=== PATIENT | male | born 1930 | race African-American/Black ===

== ENCOUNTER 2019-01-18 20:58 | Inpatient (IN) | payer MEDICARE, OTHER, MEDICAID ==
[~2019-01-18] VITALS: Ht 175.3 cm; Wt 77.1 kg
--- NOTE | 2019-01-18 21:10 | Emergency Room Report ---
History of Present Illness General Chief Complaint: Altered Mental Status Source: EMS Present Illness HPI Patient is an 88-year-old male brought in by EMS after increased altered mental status. Patient was noted to have reportedly previously been alert and oriented x3. Patient was noted to have increased confusion as well as lethargy acute onset from his long-term. Patient was noted to be full code. Patient had been noted to be short of breath and hypotensive by EMS and he was started on IV fluids as well as supplemental oxygen via nonrebreather mask. Patient a prior history of peripheral vascular disease as well as dementia and psychosis. He is currently on medications for his blood pressure which include metoprolol. Patient had been noted to have increased in his lungs. Allergies: Coded Allergies: No Known Allergies (Unverified , 01/18/19) Patient History Past Medical History: see triage record Reviewed Nursing Documentation: PMH: Agreed; PSxH: Agreed Review of Systems All Other Systems: limited - by mental status Physical Exam Vital Signs Date Time Temp Pulse Resp B/P (MAP) Pulse Ox O2 Delivery O2 Flow Rate FiO2 01/18/19 21:01 98.2 118 22 53/31 (38) 99 Non-Rebreather 15.0 General Appearance: severe distress, Chronically Ill ENT: moist mucus membranes Neck: limited range of motion Respiratory: respiratory distress, rhonchi Cardiovascular #1: tachycardia Cardiovascular #2: 0 dorsalis pedis (R), 0 dorsalis pedis (L) Gastrointestinal: normal inspection, soft Musculoskeletal: normal inspection Neurologic: responsive, motor weakness Psychiatric: depressed affect Skin: no rash Procedures Critical Care Time Critical Care Time Patient had a critical medical condition which untreated could potentially result in life or limb threatening injury. Total critical care time excluding procedures approximately 45 minutes. Central Line Central Line : Consent: Emergent Central Line Lumen: triple Maximal Sterile Barrier Tech: yes cap, yes mask, yes sterile gown, yes sterile gloves, yes large sterile sheet, yes hand hygiene, yes chlorhexidine prep Central Line Postion: internal jugular (R) Anesthesia: Lidocaine - 4 cc's of anesthesia: 4 Complications: none Central Line Post Position: sutured, good blood return, position confirmed w / CXR Attempts: One Patient Tolerated: Well Complications: None Medical Decision Making Diagnostic Impression: Primary Impression: Altered mental status Additional Impressions: Septic shock Pulmonary embolism Lung mass Urinary tract infection Renal insufficiency ER Course Patient presented for altered mental status. Differential diagnosis include was not limited to pneumonia, myocardial infarction, septic shock, meningitis, intracranial hemorrhage among others. Because of complexity of patient's case laboratory testing and imaging studies were ordered. Patient was noted to be in severe distress and markedly hypotensive. He was started on IV fluids due to hypotension. He was noted to have diminished oxygen saturation. He was started on supplemental oxygen via nonrebreather mask initially.Central venous catheter was placed due to patient's hypotension. Patient was noted to have improvement his mental status after IV fluids. Patient was noted to have some improvement in hypotension. CT imaging showed some evidence of possible pulmonary embolism as well as multiple spiculated lesions concerning for mass. Patient will be started on anticoagulation with heparin due to renal insufficiencyPatient will be admitted to ICU for further evaluation of hypotension. ABG showed evidence of elevated AA gradient without acidosis. CT of the chest was ordered due to patient's AA gradient. Dr. Pedrito Mims was contacted for inpatient management due to primary care physician. Labs Test 01/18/19 21:33 01/18/19 21:45 Arterial Blood pH 7.404 (7.350-7.450) Arterial Blood Partial Pressure CO2 33.1 mmHg (35.0-45.0) Arterial Blood Partial Pressure O2 148.4 mmHg (75.0-100.0) Arterial Blood HCO3 20.2 mmol/L (22.0-26.0) Arterial Blood Oxygen Saturation 98.4 % (95-100) Arterial Blood Base Excess -3.7 (-2-2) Cristofer Test Positive Sodium Level 140 MMOL/L (136-145) Potassium Level 5.1 MMOL/L (3.5-5.1) Chloride Level 106 MMOL/L (98-107) Carbon Dioxide Level 23 MMOL/L (21-32) Anion Gap 11 mmol/L (5-15) Blood Urea Nitrogen 40 mg/dL (7-18) Creatinine 4.2 MG/DL (0.55-1.30) Estimat Glomerular Filtration Rate mL/min (>60) Glucose Level 165 MG/DL (74-106) Calcium Level 8.4 MG/DL (8.5-10.1) EKG Diagnostic Results Rate: tachycardiac Rhythm: NSR ST Segments: no acute changes Last Vital Signs Date Time Temp Pulse Resp B/P (MAP) Pulse Ox O2 Delivery O2 Flow Rate FiO2 01/18/19 21:01 98.2 118 22 53/31 (08) 99 Non-Rebreather 15.0 Status: improved Disposition: ADMITTED INPATIENT Condition: Critical Deepak Chavarria MD Jan 18, 2019 21:10
[2019-01-18] MEDS ORDERED: Vancomycin 1.5 GM in NS 275 ML IVPB ONE (21:15)
[2019-01-18] MEDS ORDERED: Cefepime HCl 2 GM in NS 110 ML IV SCH (21:15)
[2019-01-18] MEDS ORDERED: Lidocaine 1% Plain 30 ml INJ ONE (21:21)
[2019-01-18 22:09] VITALS: BP 91/58
[2019-01-18] MEDS ORDERED: Isovue-370 150ml vial INJ PRN (22:15)
[2019-01-18 22:34] LABS: ANION GAP 11 mmol/L (5-15); BLOOD UREA NITROGEN 40 mg/dL (7-18); CALCIUM 8.4 MG/DL (8.5-10.1); CARBON DIOXIDE 23 MMOL/L (21-32); CHLORIDE 106 MMOL/L (98-107); CREATININE 4.2 MG/DL (0.55-1.30); POTASSIUM 5.1 MMOL/L (3.5-5.1); SODIUM 140 MMOL/L (136-145)
[2019-01-18 22:38] VITALS: BP 109/44
[2019-01-18 22:47] LABS: ALANINE AMINOTRANSFERASE 15 U/L (12-78); ALBUMIN 1.7 G/DL (3.4-5.0); ALBUMIN/GLOBULIN RATIO 0.4 (1.0-2.7); ALKALINE PHOSPHATASE 48 U/L (46-116); ASPARTATE AMINO TRANSFERASE 18 U/L (15-37); BILIRUBIN,TOTAL 0.6 MG/DL (0.2-1.0); CKMB 1.3 NG/ML (0.0-3.6); CREATINE KINASE 117 U/L (26-308); PHOSPHORUS 4.8 MG/DL (2.5-4.9)
[2019-01-18 22:49] LABS: BASOPHILS % (AUTO) 0.6 % (0.0-2.0); HEMOGLOBIN 10.2 G/DL (14.2-18.0); LYMPHOCYTES % (AUTO) 8.7 % (20.0-45.0); MEAN CORPUSCULAR VOLUME 89 FL (80-99); MONOCYTES % (AUTO) 17.8 % (1.0-10.0); NEUTROPHILS % (AUTO) 72.9 % (45.0-75.0); PLATELET COUNT 158 K/UL (150-450); RED BLOOD COUNT 3.48 M/UL (4.70-6.10); RED CELL DISTRIBUTION WIDTH 13.7 % (11.6-14.8); WHITE BLOOD COUNT 13.2 K/UL (4.8-10.8)
[2019-01-18 23:06] LABS: INR 1.1 (0.9-1.1)
[2019-01-18 23:17] LABS: APPEARANCE,URINE CLOUDY; BILIRUBIN, URINE 1+ (NEGATIVE); GLUCOSE, URINE (UA) NEGATIVE (NEGATIVE); KETONES,URINE 1+ (NEGATIVE); LEUKOCYTE ESTERASE ,URINE 3+ (NEGATIVE); NITRITE,URINE NEGATIVE (NEGATIVE); PH,URINE 5 (4.5-8.0); PROTEIN,URINE 3+ (NEGATIVE); UROBILINOGEN,URINE 1 MG/DL (0.0-1.0)
[2019-01-18 23:43] LABS: COLOR,URINE YELLOW
[2019-01-18] MEDS ORDERED: LR 1000ml 1,000 ML IV SCH (23:45)
[2019-01-18 23:58] VITALS: BP 95/46
[2019-01-19] VITALS (67 sets, daily range): BP systolic 75–149; BP diastolic 31–107
[2019-01-19] MEDS ORDERED: Heparin 5000 units/ml inj IV ONE ×2 (00:15→23:45)
[2019-01-19] MEDS ORDERED: Heparin 25,000u/D5W 500ml 500 ML IV SCH ×4 (00:15→16:30)
[2019-01-19] MEDS ORDERED: Levophed 4mg/4mL Inj IV ONE (00:27)
[2019-01-19] MEDS ORDERED: MULTIVITAMINS1 EAC8 ORAL (00:41)
[2019-01-19] MEDS ORDERED: ACETAMINOPHEN120 MG RECTAL (00:41)
[2019-01-19] MEDS ORDERED: VITAMIN C500 M5 PO (00:41)
[2019-01-19] MEDS ORDERED: DIVALPROEX SOD250 MG PO (00:41)
[2019-01-19] MEDS ORDERED: FERROUS SULFAT325 M2 ORAL (00:41)
[2019-01-19] MEDS ORDERED: LISINOPRIL5 MG ORAL (00:41)
[2019-01-19] MEDS ORDERED: COLACE100 MG ORAL (00:41)
[2019-01-19] MEDS ORDERED: TEMAZEPAM15 MG ORAL (00:41)
[2019-01-19] MEDS ORDERED: MILK OF MA2400 MG/10 ORAL (00:41)
[2019-01-19] MEDS ORDERED: RISPERDAL0.5 MG ORAL (00:41)
[2019-01-19] MEDS ORDERED: METOPROLOL SUCC50 MG ORAL (00:41)
[2019-01-19] MEDS ORDERED: LR 1000ml 1,000 ML IV SCH (03:45)
[2019-01-19 07:04] LABS: ALANINE AMINOTRANSFERASE 14 U/L (12-78); ALBUMIN/GLOBULIN RATIO 0.4 (1.0-2.7); ALKALINE PHOSPHATASE 59 U/L (46-116); ANION GAP 12 mmol/L (5-15); ASPARTATE AMINO TRANSFERASE 26 U/L (15-37); BILIRUBIN,TOTAL 0.4 MG/DL (0.2-1.0); BLOOD UREA NITROGEN 41 mg/dL (7-18); CALCIUM 8.6 MG/DL (8.5-10.1); CARBON DIOXIDE 22 MMOL/L (21-32); CHLORIDE 106 MMOL/L (98-107); CREATININE 3.3 MG/DL (0.55-1.30); POTASSIUM 5.1 MMOL/L (3.5-5.1); SODIUM 140 MMOL/L (136-145)
[2019-01-19 07:07] LABS: BASOPHILS % (AUTO) 0.6 % (0.0-2.0); HEMATOCRIT 39.6 % (42.0-52.0); HEMOGLOBIN 12.8 G/DL (14.2-18.0); LYMPHOCYTES % (AUTO) 8.3 % (20.0-45.0); MEAN CORPUSCULAR VOLUME 93 FL (80-99); MONOCYTES % (AUTO) 13.7 % (1.0-10.0); NEUTROPHILS % (AUTO) 77.3 % (45.0-75.0); PLATELET COUNT 191 K/UL (150-450); RED BLOOD COUNT 4.25 M/UL (4.70-6.10); RED CELL DISTRIBUTION WIDTH 14.6 % (11.6-14.8); WHITE BLOOD COUNT 11.4 K/UL (4.8-10.8)
--- NOTE | 2019-01-19 09:06 | Diagnostic Imaging Report ---
ndication: Shortness of breath, hypotension, increased AA gradient Technique: IV administration nonionic contrast. Spiral acquisitions obtained from the lung bases to the lung apices. Multiplanar and 3-D reconstructions were generated. Total dose length product 1193.14 mGycm. CTDIvol(s) 31.87 mGy. Dose reduction achieved using automated exposure control Comparison: none Findings: There is image degradation due to respiratory motion artifact. Pulmonary arterial opacification is adequate. No gross large vessel pulmonary emboli demonstrated. The right basilar segmental branches demonstrate questionable lack of opacification, although this could be artifactual due to motion. No evidence of right ventricular dilatation. No evidence of thoracic aortic aneurysm or dissection. There is atelectasis and consolidation of a considerable portion of the posterior medial left lower lobe. There is left hilar adenopathy. Calcified nodes are seen in the left hilum. No definite mediastinal lymphadenopathy. Subcarinal fullness probably reflects a distended fluid-filled esophagus. Calcified nodes are also seen in the paratracheal region and a few small calcifications are seen in the right other nodes. The lungs demonstrate opacities in the right lung apex, largest irregular measuring 2.5 x 2.3 x 1.8 cm. Less extensive similar opacity is seen in the left lung apex. Posterior dependent atelectatic changes are seen at the right lung base. There is a small amount of pericardial fluid. The heart size is upper limits of normal The thyroid is unremarkable. No axillary or chest wall mass or adenopathy. There is mild edema of the subcutaneous fat. The bones demonstrate extensive disc degeneration at T12-L1, with subchondral sclerosis, loss of disc space. There is also extensive endplate irregularity. Degenerative proliferative changes are seen elsewhere in the thoracic and lower cervical spine. The included upper abdominal anatomy demonstrates an interpolar region right renal cyst. Considerable stool is seen in the colon. Calcifications are seen in the left adrenal. A cyst is seen in the left lobe of the liver. Impression: No large vessel central pulmonary emboli. Questionable opacification of the right lower lobe branches, versus artifact due to motion, right lower lobe emboli not excludable 2.5 x 2.3 x 1.8 cm right apical masslike opacity with smaller adjacent similar smaller opacities. Favor scarring, but the possibility of neoplasm cannot be ruled out. Comparison with any prior exams and may be available would be useful Left hilar adenopathy. Atelectasis and consolidation of the posterior medial left lower lobe Evidence of old granulomatous disease in the left left greater than right hilar and mediastinal lymph nodes. Mildly distended esophagus, probably age-related, downstream obstructive process not completely excludable. Correlate with clinical findings Small pericardial effusion. Mild edema of the subcutaneous fat Extensive endplate irregularity at T12-L1, probably on the basis of advanced degenerative change. Possibility of infection not excludable, however, correlation with clinical findings is advised consideration for MRI as clinically indicated Left adrenal calcifications, may indicate old hemorrhage Incidental findings as noted, including renal and hepatic cysts This essentially agrees with the preliminary interpretation provided overnight by [facility]. The CT scanner at [facility] is accredited by the [employer] and the scans are performed using protocols designed to limit radiation exposure to as low as reasonably achievable to attain images of sufficient resolution adequate for diagnostic evaluation.
[2019-01-19] MEDS: D5 1/2NS 1,000 ML IV SCH ×2 (11:58→19:41)
--- NOTE | 2019-01-19 12:10 | Diagnostic Imaging Report ---
Indication: Shortness of breath Technique: One view of the chest Comparison: none Findings: There is retrocardiac consolidation. The pleural spaces, right lung are clear. The heart is upper limits normal in size. Impression: Retrocardiac consolidation, suspect pneumonia
--- NOTE | 2019-01-19 12:11 | Diagnostic Imaging Report ---
Indication: Post central line placement Technique: One view of the chest Comparison: One hour earlier Findings: Interim placement of right jugular central venous catheter, tip which projects at the level of the cavoatrial junction. There is some patchy retrocardiac consolidation. There is mild pulmonary interstitial congestion. No pneumothorax Impression: Satisfactory position of right internal jugular central venous catheter. No radiographically evident complication Mild interstitial congestion Retrocardiac consolidation, possibly pneumonia, again demonstrated This essentially agrees with the preliminary interpretation provided overnight by [facility].
--- NOTE | 2019-01-19 13:27 | Consultation ---
Consult Note Consult Note Asked to eval at the request of Dr Mims for renal failure Seen in ICU with RN Examined data reviewed Patient is an 88-year-old male brought in by EMS after increased altered mental status. Patient was noted to have reportedly previously been alert and oriented x3. Patient was noted to have increased confusion as well as lethargy acute onset from his [facility]. Patient was noted to be full code. Patient had been noted to be short of breath and hypotensive by EMS and he was started on IV fluids as well as supplemental oxygen via nonrebreather mask. Patient a prior history of peripheral vascular disease as well as dementia and psychosis. He is currently on medications for his blood pressure which include metoprolol. Patient had been noted to have increased in his lungs. no allergies . Assessment/Plan Acute renal failure Shock / Sepsis Acute Encephalopathy Lung mass UTI Fluid challengge Pressors Monitor renal parameters NPO Jose Per orders per consultants Rubén Nicolas MD Jan 19, 2019 13:27
[2019-01-19] MEDS ORDERED: Milk of Magnesia 30ml Ud ORAL PRN (14:15)
[2019-01-19] MEDS: Multivitamin w/Minerals tab ORAL SCH (16:32)
[2019-01-19] MEDS: Piperacillin/Tazobactam 3.375 GM in NS 110 ML IVPB SCH (16:33)
--- NOTE | 2019-01-19 16:50 | Consultation ---
History of Present Illness General Chief Complaint: Altered Mental Status Present Illness Allergies: Coded Allergies: No Known Allergies (Unverified , 01/18/19) Medication History Scheduled Ascorbic Acid (Vitamin C), 500 MG PO BID, (Reported) Docusate Sodium* (Colace*), 100 MG ORAL DAILY, (Reported) Lisinopril (Lisinopril*), 10 MG ORAL DAILY, (Reported) Magnesium Hydroxide* (Milk Of Magnesia*), 30 ML ORAL DAILY, (Reported) Metoprolol Succinate* (Metoprolol Succinate*), 50 MG ORAL DAILY, (Reported) Multivitamin With Minerals (Multivitamins With Minerals*), 1 TAB ORAL DAILY, ( Reported) Risperidone* (Risperdal*), 0.5 MG ORAL DAILY, (Reported) Temazepam (Temazepam*), 15 MG ORAL BEDTIME, (Reported) Scheduled PRN Acetaminophen* (Tylenol*), 325 MG RECTAL Q4H PRN for Mild Pain/Temp > 100.5, ( Reported) Miscellaneous Medications Divalproex Sodium (Divalproex Sodium), 250 MG PO, (Reported) Ferrous Sulfate (Ferrous Sulfate), 325 MG ORAL, (Reported) Patient History Healthcare decision maker arnold scott Resuscitation status Full Code Advanced Directive on File No Physical Exam Last 24 Hour Vital Signs Date Time Temp Pulse Resp B/P (MAP) Pulse Ox O2 Delivery O2 Flow Rate FiO2 01/19/19 16:00 Nasal Cannula 2.0 01/19/19 16:00 67 01/19/19 14:00 127/60 01/19/19 13:00 126/53 01/19/19 13:00 69 17 126/53 (77) 100 01/19/19 12:30 69 17 131/54 (79) 100 01/19/19 12:00 98.6 71 15 116/47 (70) 99 01/19/19 12:00 77 01/19/19 12:00 Nasal Cannula 2.0 01/19/19 11:30 76 17 116/47 (70) 98 01/19/19 11:00 116/47 01/19/19 11:00 74 19 111/59 (76) 98 01/19/19 10:30 69 16 81/51 (61) 100 01/19/19 10:30 105/64 01/19/19 10:29 105/64 6/13/19 10:00 81/51 01/19/19 10:00 74 16 97/60 (72) 100 01/19/19 09:30 72 16 96/63 (74) 100 01/19/19 09:00 72 16 149/75 (99) 100 01/19/19 09:00 96/63 01/19/19 08:30 74 16 107/64 (78) 99 01/19/19 08:00 98.1 75 17 97/45 (62) 99 01/19/19 08:00 73 01/19/19 08:00 97/45 01/19/19 08:00 Nasal Cannula 2.0 01/19/19 07:30 79 16 103/56 (72) 99 01/19/19 07:00 79 16 78/47 (57) 99 01/19/19 07:00 78/47 01/19/19 06:31 102/56 01/19/19 06:30 74 16 75/41 (52) 99 01/19/19 06:00 77 16 102/56 (71) 98 01/19/19 05:30 79 16 85/46 (59) 98 01/19/19 05:00 75 16 115/57 (76) 98 01/19/19 04:30 92 20 95/54 (68) 98 01/19/19 04:00 Nasal Cannula 2.0 01/19/19 04:00 98.2 92 20 100/47 (64) 98 01/19/19 04:00 94 01/19/19 03:30 92 18 110/71 (84) 98 01/19/19 03:00 98.0 92 17 114/71 (85) 97 01/19/19 03:00 114/71 01/19/19 03:00 114/71 01/19/19 03:00 114/71 01/19/19 02:40 Nasal Cannula 2.0 01/19/19 02:28 97.5 94 19 116/55 100 Nasal Cannula 2.0 01/19/19 02:28 97.5 94 19 116/55 100 Nasal Cannula 2.0 01/19/19 02:10 116/53 01/19/19 02:10 87 16 116/53 99 Nasal Cannula 2.0 01/19/19 02:05 89 13 112/53 99 Nasal Cannula 2.0 01/19/19 02:05 112/53 01/19/19 02:00 100/43 01/19/19 02:00 85 17 100/43 99 Nasal Cannula 2.0 01/19/19 01:55 113/43 01/19/19 01:55 85 12 113/43 99 Nasal Cannula 2.0 01/19/19 01:50 90 17 102/54 100 Nasal Cannula 2.0 01/19/19 01:50 102/54 01/19/19 01:45 117/53 01/19/19 01:45 93 17 117/53 100 Nasal Cannula 2.0 01/19/19 01:40 92 14 111/56 100 Nasal Cannula 2.0 01/19/19 01:40 111/56 01/19/19 01:35 92 14 118/53 99 Nasal Cannula 2.0 01/19/19 01:35 118/53 01/19/19 01:30 89 18 114/47 99 Room Air 01/19/19 01:30 114/47 01/19/19 01:27 93 16 113/45 98 Nasal Cannula 2.0 01/19/19 01:25 113/45 01/19/19 01:20 93 16 109/56 98 Nasal Cannula 2.0 01/19/19 01:20 109/56 01/19/19 01:15 105/57 01/19/19 01:15 93 17 105/57 100 Nasal Cannula 2.0 01/19/19 01:10 92 18 111/53 98 Room Air 2.0 01/19/19 01:10 111/53 01/19/19 01:05 100 19 97/50 99 Nasal Cannula 2.0 01/19/19 01:05 97/50 01/19/19 01:01 93 23 116/43 98 Nasal Cannula 2.0 01/19/19 01:00 116/43 01/19/19 00:55 96 22 100/50 100 Nasal Cannula 2.0 01/19/19 00:55 100/50 01/19/19 00:50 98 24 97/57 99 Nasal Cannula 2.0 01/19/19 00:50 97/57 01/19/19 00:45 97/50 01/19/19 00:45 97.4 96 16 97/50 99 Nasal Cannula 2.0 01/19/19 00:40 87/52 01/19/19 00:40 97.2 94 18 87/52 100 Nasal Cannula 2.0 01/19/19 00:35 97.3 92 19 75/31 100 Nasal Cannula 2.0 01/19/19 00:32 75/31 01/18/19 23:58 97.2 98 19 95/46 98 Nasal Cannula 2.0 01/18/19 22:38 98.2 87 19 109/44 100 Non-Rebreather 15.0 01/18/19 22:09 90 19 91/58 100 Non-Rebreather 15.0 01/18/19 21:30 98 30 Non-Rebreather 15.0 01/18/19 21:01 98.2 118 22 53/31 (38) 99 Non-Rebreather 15.0 Intake and Output 01/18/19 01/19/19 19:00 07:00 Intake Total 886.133 ml Output Total 310 ml Balance 576.133 ml Intake Oral 0 ml IV Total 886.133 ml Output Urine Total 310 ml Stool Total 0 ml # Voids 1 Laboratory Tests Test 01/18/19 21:33 01/18/19 21:45 01/18/19 22:45 01/18/19 23:20 Arterial Blood pH 7.404 (7.350-7.450) Arterial Blood Partial Pressure CO2 33.1 mmHg (35.0-45.0) L Arterial Blood Partial Pressure O2 148.4 mmHg (75.0-100.0) H Arterial Blood HCO3 20.2 mmol/L (22.0-26.0) L Arterial Blood Oxygen Saturation 98.4 % (95-100) Arterial Blood Base Excess -3.7 (-2-2) L Cristofer Test Positive Sodium Level 140 MMOL/L (136-145) Potassium Level 5.1 MMOL/L (3.5-5.1) Chloride Level 106 MMOL/L (98-107) Carbon Dioxide Level 23 MMOL/L (21-32) Anion Gap 11 mmol/L (5-15) Blood Urea Nitrogen 40 mg/dL (7-18) H Creatinine 4.2 MG/DL (0.55-1.30) H Estimat Glomerular Filtration Rate mL/min (>60) Glucose Level 165 MG/DL (74-106) H Lactic Acid Level 3.40 mmol/L (0.4-2.0) H 2.50 mmol/L (0.66-2.22) H Calcium Level 8.4 MG/DL (8.5-10.1) L Phosphorus Level 4.8 MG/DL (2.5-4.9) Magnesium Level 1.6 MG/DL (1.8-2.4) L Total Bilirubin 0.6 MG/DL (0.2-1.0) Aspartate Amino Transf (AST/SGOT) 18 U/L (15-37) Alanine Aminotransferase (ALT/SGPT) 15 U/L (12-78) Alkaline Phosphatase 48 U/L (46-116) Total Creatine Kinase 117 U/L (26-308) Creatine Kinase MB 1.3 NG/ML (0.0-3.6) Creatine Kinase MB Relative Index 1.1 Troponin I 0.041 ng/mL (0.000-0.056) Pro-B-Type Natriuretic Peptide 7678 pg/mL (0-125) H Total Protein 5.6 G/DL (6.4-8.2) L Albumin 1.7 G/DL (3.4-5.0) L Globulin 3.9 g/dL Albumin/Globulin Ratio 0.4 (1.0-2.7) L White Blood Count 13.2 K/UL (4.8-10.8) H Red Blood Count 3.48 M/UL (4.70-6.10) L Hemoglobin 10.2 G/DL (14.2-18.0) L Hematocrit 31.0 % (42.0-52.0) L Mean Corpuscular Volume 89 FL (80-99) Mean Corpuscular Hemoglobin 29.4 PG (27.0-31.0) Mean Corpuscular Hemoglobin Concent 33.0 G/DL (32.0-36.0) Red Cell Distribution Width 13.7 % (11.6-14.8) Platelet Count 158 K/UL (150-450) Mean Platelet Volume 6.2 FL (6.5-10.1) L Neutrophils (%) (Auto) 72.9 % (45.0-75.0) Lymphocytes (%) (Auto) 8.7 % (20.0-45.0) L Monocytes (%) (Auto) 17.8 % (1.0-10.0) H Eosinophils (%) (Auto) 0.0 % (0.0-3.0) Basophils (%) (Auto) 0.6 % (0.0-2.0) Prothrombin Time 11.7 SEC (9.30-11.50) H Prothromb Time International Ratio 1.1 (0.9-1.1) Activated Partial Thromboplast Time 31 SEC (23-33) Urine Color Yellow Urine Appearance Cloudy Urine pH 5 (4.5-8.0) Urine Specific [place] 1.020 (1.005-1.035) Urine Protein 3+ (NEGATIVE) H Urine Glucose (UA) Negative (NEGATIVE) Urine Ketones 1+ (NEGATIVE) H Urine Blood 5+ (NEGATIVE) H Urine Nitrite Negative (NEGATIVE) Urine Bilirubin 1+ (NEGATIVE) H Urine Ictotest Negative (NEGATIVE) Urine Urobilinogen 1 MG/DL (0.0-1.0) H Urine Leukocyte Esterase 3+ (NEGATIVE) H Urine RBC Tntc /HPF (0 - 0) H Urine WBC Tntc /HPF (0 - 0) H Urine Squamous Epithelial Cells None /LPF (NONE/OCC) Urine Bacteria Many /HPF (NONE) H Test 01/19/19 06:18 01/19/19 08:20 01/19/19 15:05 White Blood Count 11.4 K/UL (4.8-10.8) H Red Blood Count 4.25 M/UL (4.70-6.10) L Hemoglobin 12.8 G/DL (14.2-18.0) L Hematocrit 39.6 % (42.0-52.0) L Mean Corpuscular Volume 93 FL (80-99) Mean Corpuscular Hemoglobin 30.1 PG (27.0-31.0) Mean Corpuscular Hemoglobin Concent 32.4 G/DL (32.0-36.0) Red Cell Distribution Width 14.6 % (11.6-14.8) Platelet Count 191 K/UL (150-450) Mean Platelet Volume 7.1 FL (6.5-10.1) Neutrophils (%) (Auto) 77.3 % (45.0-75.0) H Lymphocytes (%) (Auto) 8.3 % (20.0-45.0) L Monocytes (%) (Auto) 13.7 % (1.0-10.0) H Eosinophils (%) (Auto) 0.0 % (0.0-3.0) Basophils (%) (Auto) 0.6 % (0.0-2.0) Activated Partial Thromboplast Time > 150 SEC (23-33) *H 125 SEC (23-33) H Sodium Level 140 MMOL/L (136-145) Potassium Level 5.1 MMOL/L (3.5-5.1) Chloride Level 106 MMOL/L (98-107) Carbon Dioxide Level 22 MMOL/L (21-32) Anion Gap 12 mmol/L (5-15) Blood Urea Nitrogen 41 mg/dL (7-18) H Creatinine 3.3 MG/DL (0.55-1.30) H Estimat Glomerular Filtration Rate mL/min (>60) Glucose Level 153 MG/DL (74-106) H Lactic Acid Level 3.00 mmol/L (0.4-2.0) H 2.50 mmol/L (0.66-2.22) H Calcium Level 8.6 MG/DL (8.5-10.1) Total Bilirubin 0.4 MG/DL (0.2-1.0) Aspartate Amino Transf (AST/SGOT) 26 U/L (15-37) Alanine Aminotransferase (ALT/SGPT) 14 U/L (12-78) Alkaline Phosphatase 59 U/L (46-116) Total Protein 6.6 G/DL (6.4-8.2) Albumin 2.0 G/DL (3.4-5.0) L Globulin 4.6 g/dL Albumin/Globulin Ratio 0.4 (1.0-2.7) L Urine Random Sodium 43 mmol/L (20-110) Height (Feet): 5 Height (Inches): 9.00 Weight (Pounds): 165 Medications Current Medications Medications (Trade) Dose Ordered Sig/Vaughn Route PRN Reason Start Time Stop Time Status Last Admin Dose Admin Acetaminophen (Tylenol) 650 mg Q4H PRN ORAL Mild Pain/Temp > 100.5 01/19/19 14:15 02/18/19 14:14 01/19/19 14:58 Chlorhexidine Gluconate (Michelle-Hex 2%) 1 applic DAILY@1999 TOPIC 01/19/19 20:00 02/18/19 19:59 Dextrose/Sodium Chloride 1,000 ml @ 125 mls/hr Q8H IV 01/19/19 11:00 02/18/19 10:59 01/19/19 11:58 Divalproex Sodium (Depakote) 250 mg Q8HR ORAL 01/19/19 22:00 02/18/19 21:59 Docusate Sodium (Colace) 100 mg DAILY ORAL 01/20/19 09:00 02/19/19 08:59 Famotidine (Pepcid I.v.) 10 mg Q12HR IVP 01/19/19 09:00 02/18/19 08:59 01/19/19 08:52 Heparin Sodium/ Dextrose 500 ml @ 16.465 mls/ hr ADJUST PER PROTOCOL IV 01/19/19 16:30 02/18/19 16:29 01/19/19 16:32 Magnesium Hydroxide (Mom) 30 ml DAILYPRN PRN ORAL Constipation 01/19/19 14:15 02/18/19 14:14 Metronidazole 100 ml @ 100 mls/hr Q6H IVPB 01/19/19 09:00 01/26/19 08:59 01/19/19 14:57 Multivitamins Therapeutic (Therapeutic Multivitamin) 1 ea DAILY ORAL 01/19/19 16:00 02/18/19 15:59 01/19/19 16:32 Norepinephrine Bitartrate 4 mg/ Dextrose 250 ml @ 0 mls/hr Q24H IV 01/19/19 03:45 02/18/19 03:44 01/19/19 10:30 Ondansetron HCl (Zofran) 4 mg Q6H PRN IV Nausea & Vomiting 01/19/19 13:45 02/18/19 13:44 Piperacillin Sod/ Tazobactam Sod 3.375 gm/Sodium Chloride 110 ml @ 27.5 mls/hr Q12H IVPB 01/19/19 15:00 01/26/19 14:59 01/19/19 16:33 Temazepam (Restoril) 15 mg BEDTIME ORAL 01/19/19 21:00 01/26/19 20:59 Assessment/Plan Assessment/Plan: Hematology/Oncology Consultation Chief Complaint: Altered Mental Status REQ MD: Samuel Mmis DOS: 01/19/19 RFC: Pulmonary emboli and lung cancer eval ID 88-year-old male brought in by EMS after increased altered mental status. Patient was noted to have reportedly previously been alert and oriented x3. Patient was noted to have increased confusion as well as lethargy acute onset [facility]. Patient was noted to be full code. Patient had been noted to be short of breath and hypotensive by EMS and he was started on IV fluids as well as supplemental oxygen via nonrebreather mask. Patient a prior history of peripheral vascular disease as well as dementia and psychosis. He is currently on medications for his blood pressure which include metoprolol. Patient had been noted to have increased in his lungs. Noted to have a PE on CTA imaging, limited info given he is a poor historian is at this time confused , started on heparin gtt, pressors and abx Coded Allergies: No Known Allergies (Unverified , 01/18/19) Past Medical History: see triage record Reviewed Nursing Documentation: PMH: Agreed; PSxH: Agreed Review of Systems: limited - by mental status PE Last 24 Hour Vital Signs Date Time Temp Pulse Resp B/P (MAP) Pulse Ox O2 Delivery O2 Flow Rate FiO2 01/19/19 16:00 Nasal Cannula 2.0 01/19/19 16:00 67 01/19/19 14:00 127/60 01/19/19 13:00 126/53 01/19/19 13:00 69 17 126/53 (77) 100 01/19/19 12:30 69 17 131/54 (79) 100 01/19/19 12:00 98.6 71 15 116/47 (70) 99 01/19/19 12:00 77 01/19/19 12:00 Nasal Cannula 2.0 01/19/19 11:30 76 17 116/47 (70) 98 01/19/19 11:00 116/47 01/19/19 11:00 74 19 111/59 (76) 98 01/19/19 10:30 69 16 81/51 (61) 100 01/19/19 10:30 105/64 01/19/19 10:29 105/64 01/19/19 10:00 81/51 01/19/19 10:00 74 16 97/60 (72) 100 01/19/19 09:30 72 16 96/63 (74) 100 01/19/19 09:00 72 16 149/75 (99) 100 01/19/19 09:00 96/63 01/19/19 08:30 74 16 107/64 (78) 99 01/19/19 08:00 98.1 75 17 97/45 (62) 99 01/19/19 08:00 73 01/19/19 08:00 97/45 01/19/19 08:00 Nasal Cannula 2.0 01/19/19 07:30 79 16 103/56 (72) 99 01/19/19 07:00 79 16 78/47 (57) 99 01/19/19 07:00 78/47 01/19/19 06:31 102/56 01/19/19 06:30 74 16 75/41 (52) 99 01/19/19 06:00 77 16 102/56 (71) 98 01/19/19 05:30 79 16 85/46 (59) 98 01/19/19 05:00 75 16 115/57 (76) 98 01/19/19 04:30 92 20 95/54 (68) 98 01/19/19 04:00 Nasal Cannula 2.0 01/19/19 04:00 98.2 92 20 100/47 (64) 98 01/19/19 04:00 94 01/19/19 03:30 92 18 110/71 (84) 98 01/19/19 03:00 98.0 92 17 114/71 (85) 97 01/19/19 03:00 114/71 01/19/19 03:00 114/71 01/19/19 03:00 114/71 01/19/19 02:40 Nasal Cannula 2.0 01/19/19 02:28 97.5 94 19 116/55 100 Nasal Cannula 2.0 01/19/19 02:28 97.5 94 19 116/55 100 Nasal Cannula 2.0 01/19/19 02:10 116/53 01/19/19 02:10 87 16 116/53 99 Nasal Cannula 2.0 01/19/19 02:05 89 13 112/53 99 Nasal Cannula 2.0 01/19/19 02:05 112/53 01/19/19 02:00 100/43 01/19/19 02:00 85 17 100/43 99 Nasal Cannula 2.0 01/19/19 01:55 113/43 01/19/19 01:55 85 12 113/43 99 Nasal Cannula 2.0 01/19/19 01:50 90 17 102/54 100 Nasal Cannula 2.0 01/19/19 01:50 102/54 01/19/19 01:45 117/53 01/19/19 01:45 93 17 117/53 100 Nasal Cannula 2.0 01/19/19 01:40 92 14 111/56 100 Nasal Cannula 2.0 01/19/19 01:40 111/56 01/19/19 01:35 92 14 118/53 99 Nasal Cannula 2.0 01/19/19 01:35 118/53 01/19/19 01:30 89 18 114/47 99 Room Air 01/19/19 01:30 114/47 01/19/19 01:27 93 16 113/45 98 Nasal Cannula 2.0 01/19/19 01:25 113/45 01/19/19 01:20 93 16 109/56 98 Nasal Cannula 2.0 01/19/19 01:20 109/56 01/19/19 01:15 105/57 01/19/19 01:15 93 17 105/57 100 Nasal Cannula 2.0 01/19/19 01:10 92 18 111/53 98 Room Air 2.0 01/19/19 01:10 111/53 01/19/19 01:05 100 19 97/50 99 Nasal Cannula 2.0 01/19/19 01:05 97/50 01/19/19 01:01 93 23 116/43 98 Nasal Cannula 2.0 01/19/19 01:00 116/43 01/19/19 00:55 96 22 100/50 100 Nasal Cannula 2.0 01/19/19 00:55 100/50 01/19/19 00:50 98 24 97/57 99 Nasal Cannula 2.0 01/19/19 00:50 97/57 01/19/19 00:45 97/50 01/19/19 00:45 97.4 96 16 97/50 99 Nasal Cannula 2.0 01/19/19 00:40 87/52 01/19/19 00:40 97.2 94 18 87/52 100 Nasal Cannula 2.0 01/19/19 00:35 97.3 92 19 75/31 100 Nasal Cannula 2.0 01/19/19 00:32 75/31 01/18/19 23:58 97.2 98 19 95/46 98 Nasal Cannula 2.0 01/18/19 22:38 98.2 87 19 109/44 100 Non-Rebreather 15.0 01/18/19 22:09 90 19 91/58 100 Non-Rebreather 15.0 01/18/19 21:30 98 30 Non-Rebreather 15.0 01/18/19 21:01 98.2 118 22 53/31 (38) 99 Non-Rebreather 15.0 General: severe distress, chronically Ill ENT: moist mucus membranes Neck: limited range of motion Respiratory: respiratory distress, rhonchi++ noted, nc Cardiovascular: RRr, no mgr Gastrointestinal: normal inspection, soft Musculoskeletal: normal inspection Neurologic: responsive, motor weakness Psychiatric: depressed affect Skin: no rash Current Medications Medications (Trade) Dose Ordered Sig/Vaughn Route PRN Reason Start Time Stop Time Status Last Admin Dose Admin Acetaminophen (Tylenol) 650 mg Q4H PRN ORAL Mild Pain/Temp > 100.5 01/19/19 14:15 02/18/19 14:14 01/19/19 14:58 Chlorhexidine Gluconate (Michelle-Hex 2%) 1 applic DAILY@2000 TOPIC 01/19/19 20:00 02/18/19 19:59 Dextrose/Sodium Chloride 1,000 ml @ 125 mls/hr Q8H IV 01/19/19 11:00 02/18/19 10:59 01/19/19 11:58 Divalproex Sodium (Depakote) 250 mg Q8HR ORAL 01/19/19 22:00 02/18/19 21:59 Docusate Sodium (Colace) 100 mg DAILY ORAL 01/20/19 09:00 02/19/19 08:59 Famotidine (Pepcid I.v.) 10 mg Q12HR IVP 01/19/19 09:00 02/18/19 08:59 01/19/19 08:52 Heparin Sodium/ Dextrose 500 ml @ 16.465 mls/ hr ADJUST PER PROTOCOL IV 01/19/19 16:30 02/18/19 16:29 01/19/19 16:32 Magnesium Hydroxide (Mom) 30 ml DAILYPRN PRN ORAL Constipation 01/19/19 14:15 02/18/19 14:14 Metronidazole 100 ml @ 100 mls/hr Q6H IVPB 01/19/19 09:00 01/26/19 08:59 01/19/19 14:57 Multivitamins Therapeutic (Therapeutic Multivitamin) 1 ea DAILY ORAL 01/19/19 16:00 02/18/19 15:59 01/19/19 16:32 Norepinephrine Bitartrate 4 mg/ Dextrose 250 ml @ 0 mls/hr Q24H IV 01/19/19 03:45 02/18/19 03:44 01/19/19 10:30 Ondansetron HCl (Zofran) 4 mg Q6H PRN IV Nausea & Vomiting 01/19/19 13:45 02/18/19 13:44 Piperacillin Sod/ Tazobactam Sod 3.375 gm/Sodium Chloride 110 ml @ 27.5 mls/hr Q12H IVPB 01/19/19 15:00 01/26/19 14:59 01/19/19 16:33 Temazepam (Restoril) 15 mg BEDTIME ORAL 01/19/19 21:00 01/26/19 20:59 Laboratory Tests Test 01/18/19 21:33 01/18/19 21:45 01/18/19 22:45 01/18/19 23:20 Arterial Blood pH 7.404 (7.350-7.450) Arterial Blood Partial Pressure CO2 33.1 mmHg (35.0-45.0) L Arterial Blood Partial Pressure O2 148.4 mmHg (75.0-100.0) H Arterial Blood HCO3 20.2 mmol/L (22.0-26.0) L Arterial Blood Oxygen Saturation 98.4 % (95-100) Arterial Blood Base Excess -3.7 (-2-2) L Cristofer Test Positive Sodium Level 140 MMOL/L (136-145) Potassium Level 5.1 MMOL/L (3.5-5.1) Chloride Level 106 MMOL/L (98-107) Carbon Dioxide Level 23 MMOL/L (21-32) Anion Gap 11 mmol/L (5-15) Blood Urea Nitrogen 40 mg/dL (7-18) H Creatinine 4.2 MG/DL (0.55-1.30) H Estimate Glomerular Filtration Rate mL/min (>60) Glucose Level 165 MG/DL (74-106) H Lactic Acid Level 3.40 mmol/L (0.4-2.0) H 2.50 mmol/L (0.66-2.22) H Calcium Level 8.4 MG/DL (8.5-10.1) L Phosphorus Level 4.8 MG/DL (2.5-4.9) Magnesium Level 1.6 MG/DL (1.8-2.4) L Total Bilirubin 0.6 MG/DL (0.2-1.0) Aspartate Amino Transferase (AST) 18 U/L (15-37) Alanine Aminotransferase (ALT) 15 U/L (12-78) Alkaline Phosphatase 48 U/L (46-116) Total Creatine Kinase 117 U/L (26-308) Creatine Kinase MB 1.3 NG/ML (0.0-3.6) Creatine Kinase MB Relative Index 1.1 Troponin I 0.041 ng/mL (0.000-0.056) Pro-B-Type Natriuretic Peptide 7678 pg/mL (0-125) H Total Protein 5.6 G/DL (6.4-8.2) L Albumin 1.7 G/DL (3.4-5.0) L Globulin 3.9 g/dL Albumin/Globulin Ratio 0.4 (1.0-2.7) L White Blood Count 13.2 K/UL (4.8-10.8) H Red Blood Count 3.48 M/UL (4.70-6.10) L Hemoglobin 10.2 G/DL (14.2-18.0) L Hematocrit 31.0 % (42.0-52.0) L Mean Corpuscular Volume 89 FL (80-99) Mean Corpuscular Hemoglobin 29.4 PG (27.0-31.0) Mean Corpuscular Hemoglobin Concent 33.0 G/DL (32.0-36.0) Red Cell Distribution Width 13.7 % (11.6-14.8) Platelet Count 158 K/UL (150-450) Mean Platelet Volume 6.2 FL (6.5-10.1) L Neutrophils (%) (Auto) 72.9 % (45.0-75.0) Lymphocytes (%) (Auto) 8.7 % (20.0-45.0) L Monocytes (%) (Auto) 17.8 % (1.0-10.0) H Eosinophils (%) (Auto) 0.0 % (0.0-3.0) Basophils (%) (Auto) 0.6 % (0.0-2.0) Prothrombin Time 11.7 SEC (9.30-11.50) H Prothrombin Time INR 1.1 (0.9-1.1) PTT 31 SEC (23-33) Urine Color Yellow Urine Appearance Cloudy Urine pH 5 (4.5-8.0) Urine Specific [place] 1.020 (1.005-1.035) Urine Protein 3+ (NEGATIVE) H Urine Glucose (UA) Negative (NEGATIVE) Urine Ketones 1+ (NEGATIVE) H Urine Blood 5+ (NEGATIVE) H Urine Nitrite Negative (NEGATIVE) Urine Bilirubin 1+ (NEGATIVE) H Urine Ictotest Negative (NEGATIVE) Urine Urobilinogen 1 MG/DL (0.0-1.0) H Urine Leukocyte Esterase 3+ (NEGATIVE) H Urine RBC Tntc /HPF (0 - 0) H Urine WBC Tntc /HPF (0 - 0) H Urine Squamous Epithelial Cells None /LPF (NONE/OCC) Urine Bacteria Many /HPF (NONE) H Test 01/19/19 06:18 01/19/19 08:20 01/19/19 15:05 White Blood Count 11.4 K/UL (4.8-10.8) H Red Blood Count 4.25 M/UL (4.70-6.10) L Hemoglobin 12.8 G/DL (14.2-18.0) L Hematocrit 39.6 % (42.0-52.0) L Mean Corpuscular Volume 93 FL (80-99) Mean Corpuscular Hemoglobin 30.1 PG (27.0-31.0) Mean Corpuscular Hemoglobin Concent 32.4 G/DL (32.0-36.0) Red Cell Distribution Width 14.6 % (11.6-14.8) Platelet Count 191 K/UL (150-450) Mean Platelet Volume 7.1 FL (6.5-10.1) Neutrophils (%) (Auto) 77.3 % (45.0-75.0) H Lymphocytes (%) (Auto) 8.3 % (20.0-45.0) L Monocytes (%) (Auto) 13.7 % (1.0-10.0) H Eosinophils (%) (Auto) 0.0 % (0.0-3.0) Basophils (%) (Auto) 0.6 % (0.0-2.0) PTT > 150 SEC (23-33) *H 125 SEC (23-33) H Sodium Level 140 MMOL/L (136-145) Potassium Level 5.1 MMOL/L (3.5-5.1) Chloride Level 106 MMOL/L (98-107) Carbon Dioxide Level 22 MMOL/L (21-32) Anion Gap 12 mmol/L (5-15) Blood Urea Nitrogen 41 mg/dL (7-18) H Creatinine 3.3 MG/DL (0.55-1.30) H Estimate Glomerular Filtration Rate mL/min (>60) Glucose Level 153 MG/DL (74-106) H Lactic Acid Level 3.00 mmol/L (0.4-2.0) H 2.50 mmol/L (0.66-2.22) H Calcium Level 8.6 MG/DL (8.5-10.1) Total Bilirubin 0.4 MG/DL (0.2-1.0) Aspartate Amino Transferase (AST) 26 U/L (15-37) Alanine Aminotransferase (ALT) 14 U/L (12-78) Alkaline Phosphatase 59 U/L (46-116) Total Protein 6.6 G/DL (6.4-8.2) Albumin 2.0 G/DL (3.4-5.0) L Globulin 4.6 g/dL Albumin/Globulin Ratio 0.4 (1.0-2.7) L Urine Random Sodium 43 mmol/L (20-110) CTA imaging 01/19/19 Impression: No large vessel central pulmonary emboli. Questionable opacification of the right lower lobe branches, versus artifact due to motion, right lower lobe emboli not excludable 2.5 x 2.3 x 1.8 cm right apical masslike opacity with smaller adjacent similar smaller opacities. Favor scarring, but the possibility of neoplasm cannot be ruled out. Comparison with any prior exams and may be available would be useful Left hilar adenopathy. Atelectasis and consolidation of the posterior medial left lower lobe. Evidence of old granulomatous disease in the left left greater than right hilar and mediastinal lymph nodes. Mildly distended esophagus, probably age-related, downstream obstructive process notcompletely excludable. Correlate with clinical findings Small pericardial effusion. Mild edema of the subcutaneous fat Assessment and Recs: # Lung mass (2.5 x 2.3 x 1.8 cm right apical masslike opacity) with smaller adjacent similar smaller opacities. Favor scarring, but the possibility of neoplasm cannot be ruled out. 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, r/o mets --> at this time, patient is on pressors so hold off on diagnosis until more stable --> at some point will need a tissue diagnosis, as well as further w/u --> given advanced age, hold off on any extensive immediate care # Pulmonary embolism could be related to mass/malignacy --> current is on heparin gtt --> okay to transition to coumadin with inr goal 2-3 --> another option would be xarelto/eliquis as per pcp and pulm # Leukocytosis is 2/2 septic shock with uti --> has been started on abx --> further w/u for altered mental status --> as per ID care, abx # Urinary tract infection # Renal insufficiency --> as per renal recs # Respiratory failure is on nc/bipap --> per pulm # Hypotension is due to sepsis likely --> on pressors in the icu The timing of this note does not necessarily reflect the time of the patient was seen. GREATLY APPRECIATE CONSULTATION. Jake Womack MD Jan 19, 2019 16:50
[2019-01-19] MEDS ORDERED: Isovue-370 150ml vial INJ PRN (17:00)
[2019-01-19] MEDS: Dyna-Hex 2% Top Sol 2oz TOPIC SCH (19:41)
[2019-01-19] MEDS ORDERED: D5 1/2NS 1000ml IV ONE (20:13)
[2019-01-19] MEDS ORDERED: Tubing IV Secondary IV ONE (20:13)
[2019-01-19] MEDS ORDERED: LR 1000ml ONE (20:13)
[2019-01-19] MEDS ORDERED: D5NS 1000ml IV ONE (20:13)
[2019-01-19] MEDS ORDERED: Cefepime HCl 2 GM in D5W 55 ML IVPB SCH (21:00)
[2019-01-19] MEDS: Ascorbic Acid 500mg tab ORAL SCH ×2 (21:00→21:43)
--- NOTE | 2019-01-19 22:01 | History and Physical Report ---
DATE OF ADMISSION: 01/18/2019 HISTORY OF PRESENT ILLNESS: This is an 88-year-old male, who came to the emergency room for altered mental status and unresponsiveness. The patient was found to have elevated white counts and possible PE. The patient is currently nonverbal. He opens his eyes. He has a little bit cough. No fever or chills. PAST MEDICAL HISTORY: Significant for dementia, depression, and hypertension. MEDICATIONS: See the list. ALLERGIES: NKA. FAMILY HISTORY: Noncontributory. SOCIAL HISTORY: Lives at senior living. Mostly bedbound. REVIEW OF SYSTEMS: Generalized weakness, tired, minimum cough, and confusion. PHYSICAL EXAMINATION: VITAL SIGNS: Blood pressure is 119/49, pulse 67, and saturation 100%. SKIN: Good skin turgor. HEENT: NAD. CHEST: Bilateral decreased breath sounds. CARDIOVASCULAR: Regular rhythm. Tachycardia. ABDOMEN: Soft. Positive bowel sounds. EXTREMITIES: CCE. NEUROLOGICAL: Confusion and generalized weakness. Opens her eyes. GENITOURINARY: Deferred. LABORATORY DATA: White counts are slightly high. CT of the chest is showing possible PE. ASSESSMENT AND PLAN: 1. Altered mental status. 2. Possible PE. 3. History of hypertension. 4. Dementia. 5. Leukocytosis. 6. Renal insufficiency. PLAN: We will consider Pulmonary consult. Continue heparin drip. Continue bronchodilator treatments. Check CT of head to rule out CVA. Pedrito Mims M.D. DR: АННА JOB#: [id number] CC:
[2019-01-20] VITALS (46 sets, daily range): BP systolic 86–138; BP diastolic 41–81
[2019-01-20] MEDS ORDERED: Heparin 25,000u/D5W 500ml 500 ML IV SCH
[2019-01-20] MEDS: Piperacillin/Tazobactam 3.375 GM in NS 110 ML IVPB SCH ×2 (02:59→15:36)
[2019-01-20] MEDS: D5 1/2NS 1,000 ML IV SCH ×4 (03:00→20:00)
[2019-01-20 07:31] LABS: BASOPHILS % (AUTO) 0.3 % (0.0-2.0); EOSINOPHILS % (AUTO) 0.5 % (0.0-3.0); HEMATOCRIT 33.5 % (42.0-52.0); MEAN CORPUSCULAR VOLUME 92 FL (80-99); MONOCYTES % (AUTO) 9.5 % (1.0-10.0); NEUTROPHILS % (AUTO) 83.6 % (45.0-75.0); PLATELET COUNT 198 K/UL (150-450); RED BLOOD COUNT 3.65 M/UL (4.70-6.10); RED CELL DISTRIBUTION WIDTH 14.8 % (11.6-14.8); WHITE BLOOD COUNT 9.8 K/UL (4.8-10.8)
[2019-01-20 07:47] LABS: ALANINE AMINOTRANSFERASE 24 U/L (12-78); ALBUMIN/GLOBULIN RATIO 0.5 (1.0-2.7); ALKALINE PHOSPHATASE 52 U/L (46-116); ANION GAP 10 mmol/L (5-15); ASPARTATE AMINO TRANSFERASE 34 U/L (15-37); BILIRUBIN,TOTAL 0.4 MG/DL (0.2-1.0); BLOOD UREA NITROGEN 29 mg/dL (7-18); CALCIUM 8.6 MG/DL (8.5-10.1); CARBON DIOXIDE 26 MMOL/L (21-32); CHLORIDE 105 MMOL/L (98-107); CHOLESTEROL 91 MG/DL (< 200); CREATINE KINASE 188 U/L (26-308); FERRITIN 1327 NG/ML (8-388); GAMMA GLUTAMYL TRANSPEPTIDASE 14 U/L (5-85); HDL CHOLESTEROL 37 MG/DL (40-60); PHOSPHORUS 3.3 MG/DL (2.5-4.9); POTASSIUM 3.8 MMOL/L (3.5-5.1); SODIUM 140 MMOL/L (136-145); TRIGLYCERIDES 38 MG/DL (30-150)
[2019-01-20 08:17] LABS: % IRON SATURATION 10 % (15-50); IRON 11 ug/dL (50-175); TOTAL IRON BINDING CAPACITY 113 ug/dL (250-450)
[2019-01-20] MEDS: Heparin 25,000u/D5W 500ml 500 ML IV SCH (08:52)
[2019-01-20] MEDS: Ascorbic Acid 500mg tab ORAL SCH ×2 (08:53→17:20)
[2019-01-20] MEDS: Multivitamin w/Minerals tab ORAL SCH (08:53)
[2019-01-20] MEDS ORDERED: Docusate 100mg cap ORAL SCH (09:00)
--- NOTE | 2019-01-20 11:50 | Hematology/Onc Progress Note ---
Assessment/Plan Assessment/Plan IMAGING: CTA imaging 01/19/19 Impression: No large vessel central pulmonary emboli. Questionable opacification of the right lower lobe branches, versus artifact due to motion, right lower lobe emboli not excludable 2.5 x 2.3 x 1.8 cm right apical masslike opacity with smaller adjacent similar smaller opacities. Favor scarring, but the possibility of neoplasm cannot be ruled out. Comparison with any prior exams and may be available would be useful Left hilar adenopathy. Atelectasis and consolidation of the posterior medial left lower lobe. Evidence of old granulomatous disease in the left left greater than right hilar and mediastinal lymph nodes. Mildly distended esophagus, probably age-related, downstream obstructive process notcompletely excludable. Correlate with clinical findings Small pericardial effusion. Mild edema of the subcutaneous fat Assessment and Recs: # Lung mass (2.5 x 2.3 x 1.8 cm right apical masslike opacity) with smaller adjacent similar smaller opacities. Favor scarring, but the possibility of neoplasm cannot be ruled out. 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, r/o mets --> at this time, patient is on pressors so hold off on diagnosis until more stable --> at some point will need a tissue diagnosis, as well as further w/u --> given advanced age, hold off on any extensive immediate care # Pulmonary embolism could be related to mass/malignacy --> current is on heparin gtt --> okay to transition to coumadin with inr goal 2-3 --> another option would be xarelto/eliquis as per pcp and pulm # Leukocytosis is 2/2 septic shock with uti --> has been started on abx --> further w/u for altered mental status --> as per ID care, abx # Urinary tract infection # Renal insufficiency --> as per renal recs # Respiratory failure is on nc/bipap --> per pulm # Hypotension is due to sepsis likely --> on pressors in the icu The timing of this note does not necessarily reflect the time of the patient was seen. GREATLY APPRECIATE CONSULTATION. Subjective Allergies: Coded Allergies: No Known Allergies (Unverified , 01/18/19) Subjective 01/20: Off Levophed, remians in ICU and is confused, family primary caregivers and decison makers. Objective Objective Current Medications Medications (Trade) Dose Ordered Sig/Vaughn Route PRN Reason Start Time Stop Time Status Last Admin Dose Admin Acetaminophen (Tylenol) 650 mg Q4H PRN ORAL Mild Pain/Temp > 100.5 01/19/19 14:15 02/18/19 14:14 01/19/19 14:58 Ascorbic Acid (Vitamin C) 500 mg Q12HR ORAL 01/19/19 21:00 02/18/19 20:59 01/20/19 08:53 Chlorhexidine Gluconate (Michelle-Hex 2%) 1 applic DAILY@2000 TOPIC 01/19/19 20:00 02/18/19 19:59 01/19/19 19:41 Dextrose/Sodium Chloride 1,000 ml @ 125 mls/hr Q8H IV 01/19/19 11:00 02/18/19 10:59 01/20/19 03:00 Divalproex Sodium (Depakote Sprinkles) 250 mg Q8HR ORAL 01/20/19 14:00 02/19/19 13:59 UNV Docusate Sodium (Colace) 100 mg DAILY ORAL 01/20/19 09:00 02/19/19 08:59 01/20/19 08:53 Famotidine (Pepcid I.v.) 10 mg Q12HR IVP 01/19/19 09:00 02/18/19 08:59 01/20/19 08:53 Ferrous Sulfate (Feosol) 325 mg DAILY ORAL 01/20/19 09:00 02/19/19 08:59 01/20/19 08:52 Heparin Sodium/ Dextrose 500 ml @ 19.459 mls/ hr ADJUST PER PROTOCOL IV 01/20/19 08:01 02/19/19 08:00 01/20/19 08:52 Iopamidol (Isovue-370 150ml) 150 ml NOW PRN INJ Radiology Procedure 01/19/19 17:00 01/21/19 16:58 Magnesium Hydroxide (Mom) 30 ml DAILYPRN PRN ORAL Constipation 01/19/19 14:15 02/18/19 14:14 Metronidazole 100 ml @ 100 mls/hr Q6H IVPB 01/19/19 09:00 6/20/19 08:59 01/20/19 10:02 Multivitamins Therapeutic (Therapeutic Multivitamin) 1 ea DAILY ORAL 01/19/19 16:00 02/18/19 15:59 01/20/19 08:53 Norepinephrine Bitartrate 4 mg/ Dextrose 250 ml @ 0 mls/hr Q24H IV 01/19/19 03:45 02/18/19 03:44 01/19/19 19:41 Ondansetron HCl (Zofran) 4 mg Q6H PRN IV Nausea & Vomiting 01/19/19 13:45 02/18/19 13:44 Piperacillin Sod/ Tazobactam Sod 3.375 gm/Sodium Chloride 110 ml @ 27.5 mls/hr Q12H IVPB 01/19/19 15:00 01/26/19 14:59 01/20/19 02:59 Risperidone (RisperDAL) 0.5 mg DAILY ORAL 01/20/19 09:00 02/19/19 08:59 01/20/19 08:53 Temazepam (Restoril) 15 mg BEDTIME ORAL 01/19/19 21:00 01/26/19 20:59 Last 24 Hour Vital Signs Date Time Temp Pulse Resp B/P (MAP) Pulse Ox O2 Delivery O2 Flow Rate FiO2 01/20/19 11:00 75 17 115/51 (72) 98 01/20/19 10:30 69 14 97/41 (59) 98 01/20/19 10:00 67 16 118/53 (74) 100 01/20/19 09:30 79 16 123/50 (74) 100 01/20/19 09:00 123/50 01/20/19 09:00 80 14 121/59 (79) 100 01/20/19 08:30 79 16 93/81 (85) 100 01/20/19 08:00 Nasal Cannula 2.0 01/20/19 08:00 112/50 01/20/19 08:00 76 01/20/19 08:00 88 17 105/45 (65) 100 01/20/19 07:33 99 Nasal Cannula 2.0 28 01/20/19 07:30 98.8 84 16 112/50 (70) 100 01/20/19 07:00 102/50 01/20/19 07:00 80 15 102/50 (67) 100 01/20/19 06:45 83 17 131/64 (86) 100 01/20/19 06:30 86 18 121/49 (73) 100 01/20/19 06:15 73 26 132/46 (74) 99 01/20/19 06:00 73 16 115/46 (69) 99 01/20/19 06:00 132/48 01/20/19 05:45 73 16 111/49 (69) 99 01/20/19 05:30 73 16 123/50 (74) 99 01/20/19 05:15 72 16 115/44 (67) 99 01/20/19 05:00 76 14 124/45 (71) 99 01/20/19 05:00 109/51 01/20/19 04:45 74 16 121/50 (73) 99 01/20/19 04:30 91 19 122/65 (84) 100 01/20/19 04:15 89 16 113/68 (83) 100 01/20/19 04:00 98.8 94 17 113/54 (73) 100 01/20/19 04:00 95 01/20/19 04:00 Nasal Cannula 2.0 01/20/19 03:45 97 16 123/50 (74) 99 01/20/19 03:15 88 18 121/51 (74) 100 01/20/19 03:00 87 17 101/47 (65) 100 01/20/19 03:00 101/47 01/20/19 02:45 87 17 100/44 (62) 100 01/20/19 02:30 83 17 107/49 (68) 99 01/20/19 02:15 91 17 121/58 (79) 100 01/20/19 02:00 94 17 121/52 (75) 99 01/20/19 02:00 121/52 01/20/19 01:45 99 18 123/56 (78) 99 01/20/19 01:30 85 14 114/51 (72) 99 01/20/19 01:15 82 15 124/48 (73) 99 01/20/19 01:00 88 15 115/55 (75) 100 01/20/19 01:00 115/55 01/20/19 00:30 89 17 122/63 (82) 100 01/20/19 00:00 98.2 79 16 111/55 (73) 100 01/20/19 00:00 Nasal Cannula 2.0 01/20/19 00:00 111/55 01/20/19 00:00 89 01/19/19 23:30 79 16 112/53 (72) 100 01/19/19 23:00 120/53 01/19/19 23:00 92 17 120/53 (75) 100 01/19/19 22:30 90 17 136/66 (89) 100 01/19/19 22:00 81 16 118/52 (74) 100 01/19/19 22:00 118/52 01/19/19 21:30 87 19 106/82 (90) 100 01/19/19 21:00 93 19 123/59 (80) 99 01/19/19 21:00 123/59 01/19/19 20:30 99 19 125/73 (90) 99 01/19/19 20:00 105/42 01/19/19 20:00 Nasal Cannula 2.0 01/19/19 20:00 86 01/19/19 20:00 97.8 72 14 105/42 (63) 100 01/19/19 19:41 105/46 01/19/19 19:30 71 16 105/49 (67) 99 01/19/19 19:00 94 17 98/40 (59) 98 01/19/19 19:00 98/40 01/19/19 18:30 88 17 130/107 (115) 100 01/19/19 18:00 113/55 01/19/19 18:00 84 17 113/55 (74) 100 01/19/19 17:30 57 15 115/49 (71) 100 01/19/19 17:00 122/44 01/19/19 17:00 122/44 01/19/19 17:00 65 15 92/64 (73) 100 01/19/19 16:30 70 16 119/49 (72) 100 01/19/19 16:00 Nasal Cannula 2.0 01/19/19 16:00 112/46 01/19/19 16:00 67 01/19/19 16:00 97.6 67 14 112/46 (68) 100 01/19/19 15:30 68 14 107/49 (68) 100 01/19/19 15:00 69 15 127/51 (76) 100 01/19/19 15:00 127/51 01/19/19 14:45 72 15 126/51 (76) 100 01/19/19 14:30 68 16 121/47 (71) 100 01/19/19 14:15 69 15 123/52 (75) 100 01/19/19 14:00 67 15 128/46 (73) 100 01/19/19 14:00 127/60 01/19/19 13:30 67 15 130/49 (76) 100 01/19/19 13:00 126/53 01/19/19 13:00 69 17 126/53 (77) 100 01/19/19 12:30 69 17 131/54 (79) 100 01/19/19 12:00 98.6 71 15 116/47 (70) 99 01/19/19 12:00 77 01/19/19 12:00 Nasal Cannula 2.0 01/19/19 11:30 76 17 116/47 (70) 98 01/19/19 11:00 116/47 01/19/19 11:00 74 19 111/59 (76) 98 01/19/19 10:30 69 16 81/51 (61) 100 01/19/19 10:30 105/64 01/19/19 10:29 105/64 01/19/19 10:00 81/51 01/19/19 10:00 74 16 97/60 (72) 100 01/19/19 09:30 72 16 96/63 (74) 100 01/19/19 09:00 72 16 149/75 (99) 100 01/19/19 09:00 96/63 01/19/19 08:30 74 16 107/64 (78) 99 01/19/19 08:00 98.1 75 17 97/45 (62) 99 01/19/19 08:00 73 01/19/19 08:00 97/45 01/19/19 08:00 Nasal Cannula 2.0 01/19/19 07:30 79 16 103/56 (72) 99 01/19/19 07:00 79 16 78/47 (57) 99 01/19/19 07:00 78/47 01/19/19 06:31 102/56 01/19/19 06:30 74 16 75/41 (52) 99 01/19/19 06:00 77 16 102/56 (71) 98 01/19/19 05:30 79 16 85/46 (59) 98 01/19/19 05:00 75 16 115/57 (76) 98 01/19/19 04:30 92 20 95/54 (68) 98 01/19/19 04:00 Nasal Cannula 2.0 01/19/19 04:00 98.2 92 20 100/47 (64) 98 01/19/19 04:00 94 01/19/19 03:30 92 18 110/71 (84) 98 01/19/19 03:00 98.0 92 17 114/71 (85) 97 01/19/19 03:00 114/71 01/19/19 03:00 114/71 01/19/19 03:00 114/71 01/19/19 02:40 Nasal Cannula 2.0 01/19/19 02:28 97.5 94 19 116/55 100 Nasal Cannula 2.0 01/19/19 02:28 97.5 94 19 116/55 100 Nasal Cannula 2.0 01/19/19 02:10 116/53 01/19/19 02:10 87 16 116/53 99 Nasal Cannula 2.0 01/19/19 02:05 89 13 112/53 99 Nasal Cannula 2.0 01/19/19 02:05 112/53 01/19/19 02:00 100/43 01/19/19 02:00 85 17 100/43 99 Nasal Cannula 2.0 01/19/19 01:55 113/43 01/19/19 01:55 85 12 113/43 99 Nasal Cannula 2.0 01/19/19 01:50 90 17 102/54 100 Nasal Cannula 2.0 01/19/19 01:50 102/54 01/19/19 01:45 117/53 01/19/19 01:45 93 17 117/53 100 Nasal Cannula 2.0 01/19/19 01:40 92 14 111/56 100 Nasal Cannula 2.0 01/19/19 01:40 111/56 01/19/19 01:35 92 14 118/53 99 Nasal Cannula 2.0 01/19/19 01:35 118/53 01/19/19 01:30 89 18 114/47 99 Room Air 01/19/19 01:30 114/47 01/19/19 01:27 93 16 113/45 98 Nasal Cannula 2.0 01/19/19 01:25 113/45 01/19/19 01:20 93 16 109/56 98 Nasal Cannula 2.0 01/19/19 01:20 109/56 01/19/19 01:15 105/57 01/19/19 01:15 93 17 105/57 100 Nasal Cannula 2.0 01/19/19 01:10 92 18 111/53 98 Room Air 2.0 01/19/19 01:10 111/53 01/19/19 01:05 100 19 97/50 99 Nasal Cannula 2.0 01/19/19 01:05 97/50 01/19/19 01:01 93 23 116/43 98 Nasal Cannula 2.0 01/19/19 01:00 116/43 01/19/19 00:55 96 22 100/50 100 Nasal Cannula 2.0 01/19/19 00:55 100/50 01/19/19 00:50 98 24 97/57 99 Nasal Cannula 2.0 01/19/19 00:50 97/57 01/19/19 00:45 97/50 01/19/19 00:45 97.4 96 16 97/50 99 Nasal Cannula 2.0 01/19/19 00:40 87/52 01/19/19 00:40 97.2 94 18 87/52 100 Nasal Cannula 2.0 01/19/19 00:35 97.3 92 19 75/31 100 Nasal Cannula 2.0 01/19/19 00:32 75/31 01/18/19 23:58 97.2 98 19 95/46 98 Nasal Cannula 2.0 01/18/19 22:38 98.2 87 19 109/44 100 Non-Rebreather 15.0 01/18/19 22:09 90 19 91/58 100 Non-Rebreather 15.0 01/18/19 21:30 98 30 Non-Rebreather 15.0 01/18/19 21:01 98.2 118 22 53/31 (38) 99 Non-Rebreather 15.0 Intake and Output 01/19/19 01/20/19 19:00 07:00 Intake Total 1381.1575 ml 2032.043 ml Output Total 1175 ml 1395 ml Balance 206.1575 ml 637.043 ml Intake Oral 0 ml 0 ml IV Total 1381.1575 ml 2032.043 ml Output Urine Total 1175 ml 1395 ml Stool Total 0 ml 0 ml Labs Test 01/18/19 21:33 01/18/19 21:45 01/18/19 22:45 01/18/19 23:20 Arterial Blood pH 7.404 (7.350-7.450) Arterial Blood Partial Pressure CO2 33.1 mmHg (35.0-45.0) Arterial Blood Partial Pressure O2 148.4 mmHg (75.0-100.0) Arterial Blood HCO3 20.2 mmol/L (22.0-26.0) Arterial Blood Oxygen Saturation 98.4 % (95-100) Arterial Blood Base Excess -3.7 (-2-2) Cristofer Test Positive Sodium Level 140 MMOL/L (136-145) Potassium Level 5.1 MMOL/L (3.5-5.1) Chloride Level 106 MMOL/L (98-107) Carbon Dioxide Level 23 MMOL/L (21-32) Anion Gap 11 mmol/L (5-15) Blood Urea Nitrogen 40 mg/dL (7-18) Creatinine 4.2 MG/DL (0.55-1.30) Estimat Glomerular Filtration Rate mL/min (>60) Glucose Level 165 MG/DL (74-106) Lactic Acid Level 3.40 mmol/L (0.4-2.0) 2.50 mmol/L (0.66-2.22) Calcium Level 8.4 MG/DL (8.5-10.1) Phosphorus Level 4.8 MG/DL (2.5-4.9) Magnesium Level 1.6 MG/DL (1.8-2.4) Total Bilirubin 0.6 MG/DL (0.2-1.0) Aspartate Amino Transf (AST/SGOT) 18 U/L (15-37) Alanine Aminotransferase (ALT/SGPT) 15 U/L (12-78) Alkaline Phosphatase 48 U/L (46-116) Total Creatine Kinase 117 U/L (26-308) Creatine Kinase MB 1.3 NG/ML (0.0-3.6) Creatine Kinase MB Relative Index 1.1 Troponin I 0.041 ng/mL (0.000-0.056) Pro-B-Type Natriuretic Peptide 7678 pg/mL (0-125) Total Protein 5.6 G/DL (6.4-8.2) Albumin 1.7 G/DL (3.4-5.0) Globulin 3.9 g/dL Albumin/Globulin Ratio 0.4 (1.0-2.7) White Blood Count 13.2 K/UL (4.8-10.8) Red Blood Count 3.48 M/UL (4.70-6.10) Hemoglobin 10.2 G/DL (14.2-18.0) Hematocrit 31.0 % (42.0-52.0) Mean Corpuscular Volume 89 FL (80-99) Mean Corpuscular Hemoglobin 29.4 PG (27.0-31.0) Mean Corpuscular Hemoglobin Concent 33.0 G/DL (32.0-36.0) Red Cell Distribution Width 13.7 % (11.6-14.8) Platelet Count 158 K/UL (150-450) Mean Platelet Volume 6.2 FL (6.5-10.1) Neutrophils (%) (Auto) 72.9 % (45.0-75.0) Lymphocytes (%) (Auto) 8.7 % (20.0-45.0) Monocytes (%) (Auto) 17.8 % (1.0-10.0) Eosinophils (%) (Auto) 0.0 % (0.0-3.0) Basophils (%) (Auto) 0.6 % (0.0-2.0) Prothrombin Time 11.7 SEC (9.30-11.50) Prothromb Time International Ratio 1.1 (0.9-1.1) Activated Partial Thromboplast Time 31 SEC (23-33) Urine Color Yellow Urine Appearance Cloudy Urine pH 5 (4.5-8.0) Urine Specific [place] 1.020 (1.005-1.035) Urine Protein 3+ (NEGATIVE) Urine Glucose (UA) Negative (NEGATIVE) Urine Ketones 1+ (NEGATIVE) Urine Blood 5+ (NEGATIVE) Urine Nitrite Negative (NEGATIVE) Urine Bilirubin 1+ (NEGATIVE) Urine Ictotest Negative (NEGATIVE) Urine Urobilinogen 1 MG/DL (0.0-1.0) Urine Leukocyte Esterase 3+ (NEGATIVE) Urine RBC Tntc /HPF (0 - 0) Urine WBC Tntc /HPF (0 - 0) Urine Squamous Epithelial Cells None /LPF (NONE/OCC) Urine Bacteria Many /HPF (NONE) Test 01/19/19 06:18 01/19/19 08:20 01/19/19 15:05 01/19/19 22:30 White Blood Count 11.4 K/UL (4.8-10.8) Red Blood Count 4.25 M/UL (4.70-6.10) Hemoglobin 12.8 G/DL (14.2-18.0) Hematocrit 39.6 % (42.0-52.0) Mean Corpuscular Volume 93 FL (80-99) Mean Corpuscular Hemoglobin 30.1 PG (27.0-31.0) Mean Corpuscular Hemoglobin Concent 32.4 G/DL (32.0-36.0) Red Cell Distribution Width 14.6 % (11.6-14.8) Platelet Count 191 K/UL (150-450) Mean Platelet Volume 7.1 FL (6.5-10.1) Neutrophils (%) (Auto) 77.3 % (45.0-75.0) Lymphocytes (%) (Auto) 8.3 % (20.0-45.0) Monocytes (%) (Auto) 13.7 % (1.0-10.0) Eosinophils (%) (Auto) 0.0 % (0.0-3.0) Basophils (%) (Auto) 0.6 % (0.0-2.0) Activated Partial Thromboplast Time > 150 SEC (23-33) 125 SEC (23-33) 49 SEC (23-33) Sodium Level 140 MMOL/L (136-145) Potassium Level 5.1 MMOL/L (3.5-5.1) Chloride Level 106 MMOL/L (98-107) Carbon Dioxide Level 22 MMOL/L (21-32) Anion Gap 12 mmol/L (5-15) Blood Urea Nitrogen 41 mg/dL (7-18) Creatinine 3.3 MG/DL (0.55-1.30) Estimat Glomerular Filtration Rate mL/min (>60) Glucose Level 153 MG/DL (74-106) Lactic Acid Level 3.00 mmol/L (0.4-2.0) 2.50 mmol/L (0.66-2.22) 3.40 mmol/L (0.4-2.0) Calcium Level 8.6 MG/DL (8.5-10.1) Total Bilirubin 0.4 MG/DL (0.2-1.0) Aspartate Amino Transf (AST/SGOT) 26 U/L (15-37) Alanine Aminotransferase (ALT/SGPT) 14 U/L (12-78) Alkaline Phosphatase 59 U/L (46-116) Total Protein 6.6 G/DL (6.4-8.2) Albumin 2.0 G/DL (3.4-5.0) Globulin 4.6 g/dL Albumin/Globulin Ratio 0.4 (1.0-2.7) Urine Random Sodium 43 mmol/L (20-110) Test 01/19/19 23:40 01/20/19 05:00 01/20/19 06:50 Lactic Acid Level 3.40 mmol/L (0.66-2.22) 1.50 mmol/L (0.4-2.0) Urine Eosinophils None seen (NONE SEEN) White Blood Count 9.8 K/UL (4.8-10.8) Red Blood Count 3.65 M/UL (4.70-6.10) Hemoglobin 11.0 G/DL (14.2-18.0) Hematocrit 33.5 % (42.0-52.0) Mean Corpuscular Volume 92 FL (80-99) Mean Corpuscular Hemoglobin 30.3 PG (27.0-31.0) Mean Corpuscular Hemoglobin Concent 33.0 G/DL (32.0-36.0) Red Cell Distribution Width 14.8 % (11.6-14.8) Platelet Count 198 K/UL (150-450) Mean Platelet Volume 7.2 FL (6.5-10.1) Neutrophils (%) (Auto) 83.6 % (45.0-75.0) Lymphocytes (%) (Auto) 6.0 % (20.0-45.0) Monocytes (%) (Auto) 9.5 % (1.0-10.0) Eosinophils (%) (Auto) 0.5 % (0.0-3.0) Basophils (%) (Auto) 0.3 % (0.0-2.0) Activated Partial Thromboplast Time 103 SEC (23-33) Sodium Level 140 MMOL/L (136-145) Potassium Level 3.8 MMOL/L (3.5-5.1) Chloride Level 105 MMOL/L (98-107) Carbon Dioxide Level 26 MMOL/L (21-32) Anion Gap 10 mmol/L (5-15) Blood Urea Nitrogen 29 mg/dL (7-18) Creatinine 2.0 MG/DL (0.55-1.30) Estimat Glomerular Filtration Rate mL/min (>60) Glucose Level 139 MG/DL (74-106) Hemoglobin A1c 6.0 % (4.3-6.0) Uric Acid 5.8 MG/DL (2.6-7.2) Calcium Level 8.6 MG/DL (8.5-10.1) Phosphorus Level 3.3 MG/DL (2.5-4.9) Magnesium Level 1.5 MG/DL (1.8-2.4) Iron Level 11 ug/dL (50-175) Total Iron Binding Capacity 113 ug/dL (250-450) Percent Iron Saturation 10 % (15-50) Unsaturated Iron Binding 102 ug/dL (112-346) Ferritin 1327 NG/ML (8-388) Total Bilirubin 0.4 MG/DL (0.2-1.0) Gamma Glutamyl Transpeptidase 14 U/L (5-85) Aspartate Amino Transf (AST/SGOT) 34 U/L (15-37) Alanine Aminotransferase (ALT/SGPT) 24 U/L (12-78) Alkaline Phosphatase 52 U/L (46-116) Ammonia < 10 umol/L (11-32) Total Creatine Kinase 188 U/L (26-308) Troponin I 0.041 ng/mL (0.000-0.056) C-Reactive Protein, Quantitative 27.0 mg/dL (0.00-0.90) Pro-B-Type Natriuretic Peptide 2311 pg/mL (0-125) Total Protein 6.1 G/DL (6.4-8.2) Albumin 2.0 G/DL (3.4-5.0) Globulin 4.1 g/dL Albumin/Globulin Ratio 0.5 (1.0-2.7) Triglycerides Level 38 MG/DL (30-150) Cholesterol Level 91 MG/DL (< 200) LDL Cholesterol 30 mg/dL (<100) HDL Cholesterol 37 MG/DL (40-60) Cholesterol/HDL Ratio 2.5 (3.3-4.4) Vitamin B12 Level 374 PG/ML (193-986) Folate 9.0 NG/ML (8.6-58.9) Thyroid Stimulating Hormone (TSH) 2.887 uiU/mL (0.358-3.740) Height (Feet): 5 Height (Inches): 9.00 Weight (Pounds): 171 Objective General: severe distress, chronically Ill ENT: moist mucus membranes Neck: limited range of motion Respiratory: respiratory distress, rhonchi++ noted, nc Cardiovascular: RRr, no mgr Gastrointestinal: normal inspection, soft Musculoskeletal: normal inspection Neurologic: responsive, motor weakness Psychiatric: depressed affect Skin: no rash Jake Womack MD Jan 20, 2019 11:50
--- NOTE | 2019-01-20 12:36 | Consultation ---
History of Present Illness General Date patient seen: Jan 20, 2019 Chief Complaint: Altered Mental Status Reason for Consultation: Deep tissue injury Present Illness HPI 88M presented with altered mental status from assisted and requiring intubated for airway protection. Admitted to ICU for care and management. concerns for PE. On admission noted to have wounds that were concerning and requiring care to prevent further tissue injury. Surgery called to evaluate. patient seen, chart reviewed, patient examined. currently slowly improving. Allergies: Coded Allergies: No Known Allergies (Unverified , 01/18/19) Medication History Scheduled Ascorbic Acid (Vitamin C), 500 MG PO BID, (Reported) Docusate Sodium* (Colace*), 100 MG ORAL DAILY, (Reported) Lisinopril (Lisinopril*), 10 MG ORAL DAILY, (Reported) Magnesium Hydroxide* (Milk Of Magnesia*), 30 ML ORAL DAILY, (Reported) Metoprolol Succinate* (Metoprolol Succinate*), 50 MG ORAL DAILY, (Reported) Multivitamin With Minerals (Multivitamins With Minerals*), 1 TAB ORAL DAILY, ( Reported) Risperidone* (Risperdal*), 0.5 MG ORAL DAILY, (Reported) Temazepam (Temazepam*), 15 MG ORAL BEDTIME, (Reported) Scheduled PRN Acetaminophen* (Tylenol*), 325 MG RECTAL Q4H PRN for Mild Pain/Temp > 100.5, ( Reported) Miscellaneous Medications Divalproex Sodium (Divalproex Sodium), 250 MG PO, (Reported) Ferrous Sulfate (Ferrous Sulfate), 325 MG ORAL, (Reported) Patient History Limited by: medical condition History Provided By: Medical Record, PMD Healthcare decision maker arnold scott Resuscitation status Full Code Advanced Directive on File No Past Medical/Surgical History Past Medical/Surgical History: (1) Severe sepsis (2) Urinary tract infection (3) Renal insufficiency (4) Lung mass (5) Pulmonary embolism (6) Septic shock (7) Altered mental status Review of Systems ROS Narrative cannot obtain given medical condition Physical Exam General Appearance: mild distress Lines, tubes and drains: other HEENT: other Neck: normal inspection Respiratory/Chest: no respiratory distress, no accessory muscle use, decreased breath sounds Cardiovascular/Chest: normal rate Abdomen: normal bowel sounds, soft, no organomegaly, no mass Extremities: other Skin Exam: other Neurologic: other Last 24 Hour Vital Signs Date Time Temp Pulse Resp B/P (MAP) Pulse Ox O2 Delivery O2 Flow Rate FiO2 01/20/19 12:00 Nasal Cannula 2.0 01/20/19 11:00 75 17 115/51 (72) 98 01/20/19 10:30 69 14 97/41 (59) 98 01/20/19 10:00 67 16 118/53 (74) 100 01/20/19 09:30 79 16 123/50 (74) 100 01/20/19 09:00 123/50 01/20/19 09:00 80 14 121/59 (79) 100 01/20/19 08:30 79 16 93/81 (85) 100 01/20/19 08:00 Nasal Cannula 2.0 01/20/19 08:00 112/50 01/20/19 08:00 76 01/20/19 08:00 88 17 105/45 (65) 100 01/20/19 07:33 99 Nasal Cannula 2.0 28 01/20/19 07:30 98.8 84 16 112/50 (70) 100 01/20/19 07:00 102/50 01/20/19 07:00 80 15 102/50 (67) 100 01/20/19 06:45 83 17 131/64 (86) 100 01/20/19 06:30 86 18 121/49 (73) 100 01/20/19 06:15 73 26 132/46 (74) 99 01/20/19 06:00 73 16 115/46 (69) 99 01/20/19 06:00 132/48 01/20/19 05:45 73 16 111/49 (69) 99 01/20/19 05:30 73 16 123/50 (74) 99 01/20/19 05:15 72 16 115/44 (67) 99 01/20/19 05:00 76 14 124/45 (71) 99 01/20/19 05:00 109/51 01/20/19 04:45 74 16 121/50 (73) 99 01/20/19 04:30 91 19 122/65 (84) 100 01/20/19 04:15 89 16 113/68 (83) 100 01/20/19 04:00 98.8 94 17 113/54 (73) 100 01/20/19 04:00 95 01/20/19 04:00 Nasal Cannula 2.0 01/20/19 03:45 97 16 123/50 (74) 99 01/20/19 03:15 88 18 121/51 (74) 100 01/20/19 03:00 87 17 101/47 (65) 100 01/20/19 03:00 101/47 01/20/19 02:45 87 17 100/44 (62) 100 01/20/19 02:30 83 17 107/49 (68) 99 01/20/19 02:15 91 17 121/58 (79) 100 01/20/19 02:00 94 17 121/52 (75) 99 01/20/19 02:00 121/52 01/20/19 01:45 99 18 123/56 (78) 99 01/20/19 01:30 85 14 114/51 (72) 99 01/20/19 01:15 82 15 124/48 (73) 99 01/20/19 01:00 88 15 115/55 (75) 100 01/20/19 01:00 115/55 01/20/19 00:30 89 17 122/63 (82) 100 01/20/19 00:00 98.2 79 16 111/55 (73) 100 01/20/19 00:00 Nasal Cannula 2.0 01/20/19 00:00 111/55 01/20/19 00:00 89 01/19/19 23:30 79 16 112/53 (72) 100 01/19/19 23:00 120/53 01/19/19 23:00 92 17 120/53 (75) 100 01/19/19 22:30 90 17 136/66 (89) 100 01/19/19 22:00 81 16 118/52 (74) 100 01/19/19 22:00 118/52 01/19/19 21:30 87 19 106/82 (90) 100 01/19/19 21:00 93 19 123/59 (80) 99 01/19/19 21:00 123/59 01/19/19 20:30 99 19 125/73 (90) 99 01/19/19 20:00 105/42 01/19/19 20:00 Nasal Cannula 2.0 01/19/19 20:00 86 01/19/19 20:00 97.8 72 14 105/42 (63) 100 01/19/19 19:41 105/46 01/19/19 19:30 71 16 105/49 (67) 99 01/19/19 19:00 94 17 98/40 (59) 98 01/19/19 19:00 98/40 01/19/19 18:30 88 17 130/107 (115) 100 01/19/19 18:00 113/55 01/19/19 18:00 84 17 113/55 (74) 100 01/19/19 17:30 57 15 115/49 (71) 100 01/19/19 17:00 122/44 01/19/19 17:00 122/44 01/19/19 17:00 65 15 92/64 (73) 100 01/19/19 16:30 70 16 119/49 (72) 100 01/19/19 16:00 Nasal Cannula 2.0 01/19/19 16:00 112/46 01/19/19 16:00 67 01/19/19 16:00 97.6 67 14 112/46 (68) 100 01/19/19 15:30 68 14 107/49 (68) 100 01/19/19 15:00 69 15 127/51 (76) 100 01/19/19 15:00 127/51 01/19/19 14:45 72 15 126/51 (76) 100 01/19/19 14:30 68 16 121/47 (71) 100 01/19/19 14:15 69 15 123/52 (75) 100 01/19/19 14:00 67 15 128/46 (73) 100 01/19/19 14:00 127/60 01/19/19 13:30 67 15 130/49 (76) 100 01/19/19 13:00 126/53 01/19/19 13:00 69 17 126/53 (77) 100 Intake and Output 01/19/19 01/20/19 19:00 07:00 Intake Total 1381.1575 ml 2032.043 ml Output Total 1175 ml 1395 ml Balance 206.1575 ml 637.043 ml Intake Oral 0 ml 0 ml IV Total 1381.1575 ml 2032.043 ml Output Urine Total 1175 ml 1395 ml Stool Total 0 ml 0 ml Laboratory Tests Test 01/19/19 15:05 01/19/19 22:30 01/19/19 23:40 01/20/19 05:00 Activated Partial Thromboplast Time 125 SEC (23-33) H 49 SEC (23-33) H Urine Random Sodium 43 mmol/L (20-110) Lactic Acid Level 3.40 mmol/L (0.4-2.0) H 3.40 mmol/L (0.66-2.22) H Urine Eosinophils None seen (NONE SEEN) Test 01/20/19 06:50 White Blood Count 9.8 K/UL (4.8-10.8) Red Blood Count 3.65 M/UL (4.70-6.10) L Hemoglobin 11.0 G/DL (14.2-18.0) L Hematocrit 33.5 % (42.0-52.0) L Mean Corpuscular Volume 92 FL (80-99) Mean Corpuscular Hemoglobin 30.3 PG (27.0-31.0) Mean Corpuscular Hemoglobin Concent 33.0 G/DL (32.0-36.0) Red Cell Distribution Width 14.8 % (11.6-14.8) Platelet Count 198 K/UL (150-450) Mean Platelet Volume 7.2 FL (6.5-10.1) Neutrophils (%) (Auto) 83.6 % (45.0-75.0) H Lymphocytes (%) (Auto) 6.0 % (20.0-45.0) L Monocytes (%) (Auto) 9.5 % (1.0-10.0) Eosinophils (%) (Auto) 0.5 % (0.0-3.0) Basophils (%) (Auto) 0.3 % (0.0-2.0) Activated Partial Thromboplast Time 103 SEC (23-33) H Sodium Level 140 MMOL/L (136-145) Potassium Level 3.8 MMOL/L (3.5-5.1) Chloride Level 105 MMOL/L (98-107) Carbon Dioxide Level 26 MMOL/L (21-32) Anion Gap 10 mmol/L (5-15) Blood Urea Nitrogen 29 mg/dL (7-18) H Creatinine 2.0 MG/DL (0.55-1.30) H Estimat Glomerular Filtration Rate mL/min (>60) Glucose Level 139 MG/DL (74-106) H Hemoglobin A1c 6.0 % (4.3-6.0) Lactic Acid Level 1.50 mmol/L (0.4-2.0) Uric Acid 5.8 MG/DL (2.6-7.2) Calcium Level 8.6 MG/DL (8.5-10.1) Phosphorus Level 3.3 MG/DL (2.5-4.9) Magnesium Level 1.5 MG/DL (1.8-2.4) L Iron Level 11 ug/dL (50-175) L Total Iron Binding Capacity 113 ug/dL (250-450) L Percent Iron Saturation 10 % (15-50) L Unsaturated Iron Binding 102 ug/dL (112-346) L Ferritin 1327 NG/ML (8-388) H Total Bilirubin 0.4 MG/DL (0.2-1.0) Gamma Glutamyl Transpeptidase 14 U/L (5-85) Aspartate Amino Transf (AST/SGOT) 34 U/L (15-37) Alanine Aminotransferase (ALT/SGPT) 24 U/L (12-78) Alkaline Phosphatase 52 U/L (46-116) Ammonia < 10 umol/L (11-32) L Total Creatine Kinase 188 U/L (26-308) Troponin I 0.041 ng/mL (0.000-0.056) C-Reactive Protein, Quantitative 27.0 mg/dL (0.00-0.90) H Pro-B-Type Natriuretic Peptide 2311 pg/mL (0-125) H Total Protein 6.1 G/DL (6.4-8.2) L Albumin 2.0 G/DL (3.4-5.0) L Globulin 4.1 g/dL Albumin/Globulin Ratio 0.5 (1.0-2.7) L Triglycerides Level 38 MG/DL (30-150) Cholesterol Level 91 MG/DL (< 200) LDL Cholesterol 30 mg/dL (<100) HDL Cholesterol 37 MG/DL (40-60) L Cholesterol/HDL Ratio 2.5 (3.3-4.4) L Vitamin B12 Level 374 PG/ML (193-986) Folate 9.0 NG/ML (8.6-58.9) Thyroid Stimulating Hormone (TSH) 2.887 uiU/mL (0.358-3.740) Cortisol AM Sample Pending Height (Feet): 5 Height (Inches): 9.00 Weight (Pounds): 171 Medications Current Medications Medications (Trade) Dose Ordered Sig/Vaughn Route PRN Reason Start Time Stop Time Status Last Admin Dose Admin Acetaminophen (Tylenol) 650 mg Q4H PRN ORAL Mild Pain/Temp > 100.5 01/19/19 14:15 02/18/19 14:14 01/19/19 14:58 Ascorbic Acid (Vitamin C) 500 mg Q12HR ORAL 01/19/19 21:00 02/18/19 20:59 01/20/19 08:53 Chlorhexidine Gluconate (Michelle-Hex 2%) 1 applic DAILY@2000 TOPIC 01/19/19 20:00 02/18/19 19:59 01/19/19 19:41 Dextrose/Sodium Chloride 1,000 ml @ 125 mls/hr Q8H IV 01/19/19 11:00 02/18/19 10:59 01/20/19 03:00 Divalproex Sodium (Depakote Sprinkles) 250 mg Q8HR ORAL 01/20/19 14:00 02/19/19 13:59 Docusate Sodium (Colace) 100 mg DAILY ORAL 01/20/19 09:00 02/19/19 08:59 01/20/19 08:53 Famotidine (Pepcid I.v.) 10 mg Q12HR IVP 01/19/19 09:00 02/18/19 08:59 01/20/19 08:53 Ferrous Sulfate (Feosol) 325 mg DAILY ORAL 01/20/19 09:00 02/19/19 08:59 01/20/19 08:52 Heparin Sodium/ Dextrose 500 ml @ 19.459 mls/ hr ADJUST PER PROTOCOL IV 01/20/19 08:01 02/19/19 08:00 01/20/19 08:52 Iopamidol (Isovue-370 150ml) 150 ml NOW PRN INJ Radiology Procedure 01/19/19 17:00 01/21/19 16:58 Magnesium Hydroxide (Mom) 30 ml DAILYPRN PRN ORAL Constipation 01/19/19 14:15 02/18/19 14:14 Metronidazole 100 ml @ 100 mls/hr Q6H IVPB 01/19/19 09:00 6/20/19 08:59 01/20/19 10:02 Multivitamins Therapeutic (Therapeutic Multivitamin) 1 ea DAILY ORAL 01/19/19 16:00 02/18/19 15:59 01/20/19 08:53 Norepinephrine Bitartrate 4 mg/ Dextrose 250 ml @ 0 mls/hr Q24H IV 01/19/19 03:45 02/18/19 03:44 01/19/19 19:41 Ondansetron HCl (Zofran) 4 mg Q6H PRN IV Nausea & Vomiting 01/19/19 13:45 02/18/19 13:44 Piperacillin Sod/ Tazobactam Sod 3.375 gm/Sodium Chloride 110 ml @ 27.5 mls/hr Q12H IVPB 01/19/19 15:00 01/26/19 14:59 01/20/19 02:59 Risperidone (RisperDAL) 0.5 mg DAILY ORAL 01/20/19 09:00 02/19/19 08:59 01/20/19 08:53 Temazepam (Restoril) 15 mg BEDTIME ORAL 01/19/19 21:00 01/26/19 20:59 Assessment/Plan Problem List: (1) Decubitus skin ulcer Assessment & Plan: Pt presented on admission with DTPI sacrococcygeal (L)1.5cm x (W)0.8cm.Base of wound purple with maroon borders. Base of wound fluctuant centrally. Additional shearing noted periwound with scarring noted from previous wounds to sacrum,R and L buttocks. Both ischial areas noted to have darker than is normal skin tone without induration /erythema. Resolving pressure injury R heel. Thick callused cap noted with surrounding fluctuance and non-blanchable erythema (L)3.5cm x (W)3.5cm. Non-blanchable erythema without fluctuance or induration noted to L heel. Tx.Plan: Apply Moisture Barrier Paste to sacrococcygeal area. Cover with Optifoam drsg. Change every 3days and prn. Apply Moisture Barrier Paste to both ischail areas and scrotum with each incontinence care. Apply Cavilon Skin Barrier to Both heels. Cover each heel with Optifoam drsg. Change every 7 days and prn. APM/PHIL mattress. Reposition at least every 2hours or as tolerated. Off-load heels with Pillow. ICD Codes: L89.90 - Pressure ulcer of unspecified site, unspecified stage SNOMED: 579428420 (2) Urinary tract infection ICD Codes: N39.0 - Urinary tract infection, site not specified SNOMED: 52826504 (3) Renal insufficiency ICD Codes: N28.9 - Disorder of kidney and ureter, unspecified SNOMED: 199554343, 079162719 (4) Lung mass Assessment & Plan: No large vessel central pulmonary emboli. Questionable opacification of the right lower lobe branches, versus artifact due to motion, right lower lobe emboli not excludable 2.5 x 2.3 x 1.8 cm right apical masslike opacity with smaller adjacent similar smaller opacities. Favor scarring, but the possibility of neoplasm cannot be ruled out. Comparison with any prior exams and may be available would be useful Left hilar adenopathy. Atelectasis and consolidation of the posterior medial left lower lobe Evidence of old granulomatous disease in the left left greater than right hilar and mediastinal lymph nodes. Mildly distended esophagus, probably age-related, downstream obstructive process not completely excludable. Correlate with clinical findings Small pericardial effusion. Mild edema of the subcutaneous fat Extensive endplate irregularity at T12-L1, probably on the basis of advanced degenerative change. Possibility of infection not excludable, however, correlation with clinical findings is advised consideration for MRI as clinically indicated Left adrenal calcifications, may indicate old hemorrhage ICD Codes: R91.8 - Other nonspecific abnormal finding of lung field SNOMED: 003003765, 117921843 (5) Pulmonary embolism ICD Codes: I26.99 - Other pulmonary embolism without acute cor pulmonale SNOMED: 92699144, 322831830 (6) Septic shock Assessment & Plan: DAILY ESTIMATED NEEDS: Needs based on Wound, sepsis 75kg 25-35 kcals/kg 2411-9652 total kcals 1.25-2 g protein/kg 94-150 g total protein 25-30ml/kcal mL/kg 2270-5607 total fluid mLs NUTRITION DIAGNOSIS: Increased kcal/ pro needs r/t wound healing as evidenced by BL heel wound, sacral unstageable wound. CURRENT DIET: NPO PO DIET RECOMMENDATIONS: As able-> LOW NA DIET (texture per SEAFOOD AND SERVICE MEAT MANAGER/ on puree + [employer] MARKETING TEAM LEAD) ENTERAL NUTRITION RECOMMENDATIONS: NGT if part of POC-> Glucerna 1.5 @55ml/hr x24 hrs to provide 1320ml, 1980 kcal, 109g pro, 1002ml free H2O - If part of POC, obtain GI access, start Glucerna 1.5 @25ml/hr for 6 hrs. - Advance as tolerated 10ml/hr q4-6 hrs to goal. - Flush per MD, HOB Over 30 degrees * FEED W/ HEMODYNAMIC STABILITY * ---- ADDITIONAL RECOMMENDATIONS: 1) Wound care: w/ oral diet add BRUCE BID + VIT C 250mg BID + MVI x1 daily 2) SEAFOOD AND SERVICE MEAT MANAGER eval for diet vs non oral feeds 3) Feed w/ hemodynamic stability 4) Monitor BG/ need for hypoglycemic agents 5) Calibrated bed scale wts ICD Codes: A41.9 - Sepsis, unspecified organism; R65.21 - Severe sepsis with septic shock SNOMED: 93776684 (7) Altered mental status ICD Codes: R41.82 - Altered mental status, unspecified SNOMED: 865560888 (8) Severe sepsis ICD Codes: A41.9 - Sepsis, unspecified organism; R65.20 - Severe sepsis without septic shock SNOMED: 53753291 Tawanda Alfaro Jan 20, 2019 12:36
--- NOTE | 2019-01-20 13:43 | Nephrology Progress Note ---
Assessment/Plan Problem List: (1) Septic shock (2) Renal insufficiency (3) Urinary tract infection (4) Lung mass (5) Decubitus skin ulcer Assessment Acute renal failure Shock / Sepsis Acute Encephalopathy Lung mass UTI Decubitus sacral Plan mag IV Fluids Off Pressors Midodrine Monitor renal parameters St eval Jose Per orders per consultants Subjective ROS Limited/Unobtainable: No Constitutional: Reports: malaise, weakness Objective Objective Last 24 Hour Vital Signs Date Time Temp Pulse Resp B/P (MAP) Pulse Ox O2 Delivery O2 Flow Rate FiO2 01/20/19 13:00 73 17 92/47 (62) 98 01/20/19 12:00 Nasal Cannula 2.0 01/20/19 12:00 98.1 84 14 97/52 (67) 97 01/20/19 12:00 68 01/20/19 11:00 75 17 115/51 (72) 98 01/20/19 10:30 69 14 97/41 (59) 98 01/20/19 10:00 67 16 118/53 (74) 100 01/20/19 09:30 79 16 123/50 (74) 100 01/20/19 09:00 123/50 01/20/19 09:00 80 14 121/59 (79) 100 01/20/19 08:30 79 16 93/81 (85) 100 01/20/19 08:00 Nasal Cannula 2.0 01/20/19 08:00 112/50 01/20/19 08:00 76 01/20/19 08:00 88 17 105/45 (65) 100 01/20/19 07:33 99 Nasal Cannula 2.0 28 01/20/19 07:30 98.8 84 16 112/50 (70) 100 01/20/19 07:00 102/50 01/20/19 07:00 80 15 102/50 (67) 100 01/20/19 06:45 83 17 131/64 (86) 100 01/20/19 06:30 86 18 121/49 (73) 100 01/20/19 06:15 73 26 132/46 (74) 99 01/20/19 06:00 73 16 115/46 (69) 99 01/20/19 06:00 132/48 01/20/19 05:45 73 16 111/49 (69) 99 01/20/19 05:30 73 16 123/50 (74) 99 01/20/19 05:15 72 16 115/44 (67) 99 01/20/19 05:00 76 14 124/45 (71) 99 01/20/19 05:00 109/51 01/20/19 04:45 74 16 121/50 (73) 99 01/20/19 04:30 91 19 122/65 (84) 100 01/20/19 04:15 89 16 113/68 (83) 100 01/20/19 04:00 98.8 94 17 113/54 (73) 100 01/20/19 04:00 95 01/20/19 04:00 Nasal Cannula 2.0 01/20/19 03:45 97 16 123/50 (74) 99 01/20/19 03:15 88 18 121/51 (74) 100 01/20/19 03:00 87 17 101/47 (65) 100 01/20/19 03:00 101/47 01/20/19 02:45 87 17 100/44 (62) 100 01/20/19 02:30 83 17 107/49 (68) 99 01/20/19 02:15 91 17 121/58 (79) 100 01/20/19 02:00 94 17 121/52 (75) 99 01/20/19 02:00 121/52 01/20/19 01:45 99 18 123/56 (78) 99 01/20/19 01:30 85 14 114/51 (72) 99 01/20/19 01:15 82 15 124/48 (73) 99 01/20/19 01:00 88 15 115/55 (75) 100 01/20/19 01:00 115/55 01/20/19 00:30 89 17 122/63 (82) 100 01/20/19 00:00 98.2 79 16 111/55 (73) 100 01/20/19 00:00 Nasal Cannula 2.0 01/20/19 00:00 111/55 01/20/19 00:00 89 01/19/19 23:30 79 16 112/53 (72) 100 01/19/19 23:00 120/53 01/19/19 23:00 92 17 120/53 (75) 100 01/19/19 22:30 90 17 136/66 (89) 100 01/19/19 22:00 81 16 118/52 (74) 100 01/19/19 22:00 118/52 01/19/19 21:30 87 19 106/82 (90) 100 01/19/19 21:00 93 19 123/59 (80) 99 01/19/19 21:00 123/59 01/19/19 20:30 99 19 125/73 (90) 99 01/19/19 20:00 105/42 01/19/19 20:00 Nasal Cannula 2.0 01/19/19 20:00 86 01/19/19 20:00 97.8 72 14 105/42 (63) 100 01/19/19 19:41 105/46 01/19/19 19:30 71 16 105/49 (67) 99 01/19/19 19:00 94 17 98/40 (59) 98 01/19/19 19:00 98/40 01/19/19 18:30 88 17 130/107 (115) 100 01/19/19 18:00 113/55 01/19/19 18:00 84 17 113/55 (74) 100 01/19/19 17:30 57 15 115/49 (71) 100 01/19/19 17:00 122/44 01/19/19 17:00 122/44 01/19/19 17:00 65 15 92/64 (73) 100 01/19/19 16:30 70 16 119/49 (72) 100 01/19/19 16:00 Nasal Cannula 2.0 01/19/19 16:00 112/46 01/19/19 16:00 67 01/19/19 16:00 97.6 67 14 112/46 (68) 100 01/19/19 15:30 68 14 107/49 (68) 100 01/19/19 15:00 69 15 127/51 (76) 100 01/19/19 15:00 127/51 01/19/19 14:45 72 15 126/51 (76) 100 01/19/19 14:30 68 16 121/47 (71) 100 01/19/19 14:15 69 15 123/52 (75) 100 01/19/19 14:00 67 15 128/46 (73) 100 01/19/19 14:00 127/60 Intake and Output 01/19/19 01/20/19 19:00 07:00 Intake Total 1381.1575 ml 2032.043 ml Output Total 1175 ml 1395 ml Balance 206.1575 ml 637.043 ml Intake Oral 0 ml 0 ml IV Total 1381.1575 ml 2032.043 ml Output Urine Total 1175 ml 1395 ml Stool Total 0 ml 0 ml Laboratory Tests 01/19/19 15:05: Activated Partial Thromboplast Time 125H, Urine Random Sodium 43 01/19/19 22:30: Activated Partial Thromboplast Time 49H, Lactic Acid Level 3.40H 01/19/19 23:40: Lactic Acid Level 3.40H 01/20/19 05:00: Urine Eosinophils None seen 01/20/19 06:50: White Blood Count 9.8, Red Blood Count 3.65L, Hemoglobin 11.0L, Hematocrit 33.5L , Mean Corpuscular Volume 92, Mean Corpuscular Hemoglobin 30.3, Mean Corpuscular Hemoglobin Concent 33.0, Red Cell Distribution Width 14.8, Platelet Count 198, Mean Platelet Volume 7.2, Neutrophils (%) (Auto) 83.6H, Lymphocytes ( %) (Auto) 6.0L, Monocytes (%) (Auto) 9.5, Eosinophils (%) (Auto) 0.5, Basophils (%) (Auto) 0.3, Activated Partial Thromboplast Time 103H, Sodium Level 140, Potassium Level 3.8, Chloride Level 105, Carbon Dioxide Level 26, Anion Gap 10, Blood Urea Nitrogen 29H, Creatinine 2.0H, Estimat Glomerular Filtration Rate , Glucose Level 139H, Hemoglobin A1c 6.0, Lactic Acid Level 1.50, Uric Acid 5.8, Calcium Level 8.6, Phosphorus Level 3.3, Magnesium Level 1.5L, Iron Level 11L, Total Iron Binding Capacity 113L, Percent Iron Saturation 10L, Unsaturated Iron Binding 102L, Ferritin 1327H, Total Bilirubin 0.4, Gamma Glutamyl Transpeptidase 14, Aspartate Amino Transf (AST/SGOT) 34, Alanine Aminotransferase (ALT/SGPT) 24, Alkaline Phosphatase 52, Ammonia < 10L, Total Creatine Kinase 188, Troponin I 0.041, C-Reactive Protein, Quantitative 27.0H, Pro-B-Type Natriuretic Peptide 2311H, Total Protein 6.1L, Albumin 2.0L, Globulin 4.1, Albumin/Globulin Ratio 0.5L, Triglycerides Level 38, Cholesterol Level 91, LDL Cholesterol 30, HDL Cholesterol 37L, Cholesterol/HDL Ratio 2.5L, Vitamin B12 Level 374, Folate 9.0, Thyroid Stimulating Hormone (TSH) 2.887, Cortisol AM Sample [Pending] Height (Feet): 5 Height (Inches): 9.00 Weight (Pounds): 171 General Appearance: other - more responsive Cardiovascular: normal rate Respiratory/Chest: decreased breath sounds Abdomen: distended Rubén Nicolas MD Jan 20, 2019 13:43
[2019-01-20] MEDS: Depakote 125mg Sprinkles ORAL SCH ×2 (15:38→22:25)
[2019-01-20] MEDS: Docusate 100mg cap ORAL SCH (17:21)
[2019-01-20] MEDS: Dyna-Hex 2% Top Sol 2oz TOPIC SCH (20:32)
--- NOTE | 2019-01-20 20:45 | Progress Note ---
SUBJECTIVE: This is an elderly male, currently sitting in the bed, confused, no distress OBJECTIVE: VITAL SIGNS: Blood pressure is 110/70, pulse 74, respirations 18, no fever. HEENT: NAD. CHEST: Bilaterally clear. CARDIOVASCULAR: Regular rhythm. ABDOMEN: Soft. EXTREMITIES: CCE. ASSESSMENT: 1. PE. 2. Pneumonia. 3. Dementia. 4. Sepsis. We will continue IV fluid. Continue IV antibiotics. Continue soft diet. Heparin drip. Waiting for Pulmonary consult. Continue supportive treatment. Continue DuoNeb. Pedrito Mims M.D. DR: KAT JOB#: [id number] CC:
[2019-01-21] VITALS (20 sets, daily range): BP systolic 101–152; BP diastolic 51–77
[2019-01-21] MEDS: Heparin 25,000u/D5W 500ml 500 ML IV SCH (01:01)
[2019-01-21] MEDS: D5 1/2NS 1,000 ML IV SCH ×2 (02:18→21:03)
[2019-01-21] MEDS: Piperacillin/Tazobactam 3.375 GM in NS 110 ML IVPB SCH ×2 (02:19→22:34)
[2019-01-21 05:55] LABS: BASOPHILS % (AUTO) 0.4 % (0.0-2.0); EOSINOPHILS % (AUTO) 1.5 % (0.0-3.0); HEMATOCRIT 32.3 % (42.0-52.0); HEMOGLOBIN 10.8 G/DL (14.2-18.0); LYMPHOCYTES % (AUTO) 8.9 % (20.0-45.0); MEAN CORPUSCULAR VOLUME 91 FL (80-99); MONOCYTES % (AUTO) 10.2 % (1.0-10.0); NEUTROPHILS % (AUTO) 79.1 % (45.0-75.0); PLATELET COUNT 191 K/UL (150-450); RED BLOOD COUNT 3.56 M/UL (4.70-6.10); RED CELL DISTRIBUTION WIDTH 14.7 % (11.6-14.8); WHITE BLOOD COUNT 9.7 K/UL (4.8-10.8)
[2019-01-21 06:02] LABS: INR 1.1 (0.9-1.1)
[2019-01-21] MEDS ORDERED: Heparin 5000 units/ml inj IV SCH (06:30)
[2019-01-21] MEDS ORDERED: Heparin 25,000u/D5W 500ml 500 ML IV SCH ×3 (06:30→20:45)
[2019-01-21] MEDS: Depakote 125mg Sprinkles ORAL SCH ×3 (06:43→22:31)
[2019-01-21 06:44] LABS: ALANINE AMINOTRANSFERASE 20 U/L (12-78); ALBUMIN 1.8 G/DL (3.4-5.0); ALBUMIN/GLOBULIN RATIO 0.5 (1.0-2.7); ALKALINE PHOSPHATASE 50 U/L (46-116); AMYLASE 36 U/L (25-115); ANION GAP 8 mmol/L (5-15); ASPARTATE AMINO TRANSFERASE 22 U/L (15-37); BILIRUBIN,TOTAL 0.4 MG/DL (0.2-1.0); BLOOD UREA NITROGEN 22 mg/dL (7-18); CALCIUM 8.4 MG/DL (8.5-10.1); CARBON DIOXIDE 25 MMOL/L (21-32); CHLORIDE 107 MMOL/L (98-107); CREATININE 1.5 MG/DL (0.55-1.30); POTASSIUM 3.7 MMOL/L (3.5-5.1); SODIUM 140 MMOL/L (136-145)
--- NOTE | 2019-01-21 06:45 | Consultation ---
DATE OF CONSULTATION: 01/20/2019 CONSULTING PHYSICIAN: Beatriz Lawson M.D. REFERRING PHYSICIAN: Elmo Mims M.D. HISTORY OF PRESENT ILLNESS: The patient is an 88-year-old male, well familiar, who is from [facility]. The patient has a history of dementia and schizophrenia, who has been admitted to the hospital from [facility] due to altered mental status. The patient initially was nonverbal and became more alert and interactive. During evaluation, the patient is at baseline, alert, and oriented to time, self, and place. The patient continues to be uncooperative and noncompliant and the patient presents with disorganized speech, paucity of thought content, memory impairment, and agitation. PAST PSYCHIATRIC HISTORY: Schizophrenia, several psychiatric hospitalizations, anxiety, and insomnia. PAST MEDICAL HISTORY: Significant for UTI, renal insufficiency, pulmonary embolism, spesis, and decubitus ulcer. ALLERGIES: No known drug allergies. SUBSTANCE ABUSE HISTORY: No known history of illicit drug use or alcohol. MENTAL STATUS EXAMINATION: The patient is alert and oriented to time, self, and place. Mood is anxious. Affect is flat. Thought process, there is a paucity of thought content. Thought content, no suicidal or homicidal ideations. Cognition is impaired. Insight and judgment are non-existent. ASSESSMENT: AXIS I: Schizophrenia. AXIS II: Deferred. AXIS III: As above. AXIS IV: Low. AXIS V: 25. PLAN: 1. We will start the patient on Zyprexa 5 mg at bedtime. 2. The patient lacks capacity to refuse medication. Medication will be given to him against his will. Beatriz Lawson M.D. DR: JOSHUA JOB#: [id number] CC:
[2019-01-21 07:01] LABS: PHOSPHORUS 2.2 MG/DL (2.5-4.9)
--- NOTE | 2019-01-21 08:17 | Hematology/Onc Progress Note ---
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 Favor scarring, but the possibility of neoplasm cannot be ruled out. 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, r/o mets --> at this time, patient is on pressors so hold off on diagnosis until more stable --> at some point will need a tissue diagnosis, as well as further w/u --> given advanced age, hold off on any extensive immediate care # Pulmonary embolism could be related to mass/malignacy --> currently remains on heparin gtt --> okay to transition to coumadin with inr goal 2-3 --> another option would be xarelto/eliquis as per pcp and pulm --> APTT 59 --> INR 1.1 # Leukocytosis is 2/2 septic shock with uti --> has been started on abx --> further w/u for altered mental status --> as per ID care, abx --> wbc 9.7 # Urinary tract infection # Renal insufficiency --> as per renal recs # Respiratory failure is on nc/bipap --> per pulm # Hypotension is due to sepsis likely --> on pressors in the icu The timing of this note does not necessarily reflect the time of the patient was seen. GREATLY APPRECIATE CONSULTATION. Subjective Allergies: Coded Allergies: No Known Allergies (Unverified , 01/18/19) Subjective Subjective Subjective Allergies: Coded Allergies: No Known Allergies (Unverified , 01/18/19) Subjective 01/20: Off Levophed, remians in ICU and is confused, family primary caregivers and decison makers. 01/21: remains on Hep gtt, pt is non compliant with po meds, d/w RN. Objective Objective Current Medications Medications (Trade) Dose Ordered Sig/Vaughn Route PRN Reason Start Time Stop Time Status Last Admin Dose Admin Acetaminophen (Tylenol) 650 mg Q4H PRN ORAL Mild Pain/Temp > 100.5 01/19/19 14:15 02/18/19 14:14 01/19/19 14:58 Ascorbic Acid (Vitamin C) 250 mg TWICE A DAY ORAL 01/20/19 18:00 02/19/19 17:59 01/20/19 17:20 Chlorhexidine Gluconate (Michelle-Hex 2%) 1 applic DAILY@2000 TOPIC 01/19/19 20:00 02/18/19 19:59 01/20/19 20:32 Dextrose/Sodium Chloride 1,000 ml @ 125 mls/hr Q8H IV 01/19/19 11:00 02/18/19 10:59 01/21/19 02:18 Divalproex Sodium (Depakote Sprinkles) 250 mg Q8HR ORAL 01/20/19 14:00 02/19/19 13:59 01/20/19 22:25 Docusate Sodium (Colace) 100 mg TID ORAL 01/20/19 18:00 02/19/19 08:59 01/20/19 17:21 Heparin Sodium/ Dextrose 500 ml @ 22.453 mls/ hr ADJUST PER PROTOCOL IV 01/21/19 06:30 02/20/19 06:29 01/21/19 06:44 Magnesium Hydroxide (Mom) 30 ml DAILYPRN PRN ORAL Constipation 01/19/19 14:15 02/18/19 14:14 Metronidazole 100 ml @ 100 mls/hr Q6H IVPB 01/19/19 09:00 01/26/19 08:59 01/21/19 02:19 Midodrine (Pro-Amatine) 2.5 mg THREE TIMES A DAY ORAL 01/20/19 13:45 02/19/19 13:44 01/20/19 17:28 Multivitamins (Multivitamins) 1 tab DAILY ORAL 01/21/19 09:00 02/20/19 08:59 Norepinephrine Bitartrate 4 mg/ Dextrose 250 ml @ 0 mls/hr Q24H IV 01/19/19 03:45 02/18/19 03:44 01/19/19 19:41 Ondansetron HCl (Zofran) 4 mg Q6H PRN IV Nausea & Vomiting 01/19/19 13:45 02/18/19 13:44 Pantoprazole (Protonix) 40 mg EVERY 12 HOURS ORAL 01/20/19 21:00 02/19/19 20:59 01/20/19 20:32 Piperacillin Sod/ Tazobactam Sod 3.375 gm/Sodium Chloride 110 ml @ 27.5 mls/hr Q12H IVPB 01/19/19 15:00 01/26/19 14:59 01/21/19 02:19 Temazepam (Restoril) 15 mg BEDTIME ORAL 01/19/19 21:00 01/26/19 20:59 Last 24 Hour Vital Signs Date Time Temp Pulse Resp B/P (MAP) Pulse Ox O2 Delivery O2 Flow Rate FiO2 01/21/19 08:00 98.3 72 14 98 01/21/19 07:00 75 15 123/52 (75) 99 01/21/19 06:00 98.2 85 14 101/61 (74) 100 01/21/19 05:00 84 15 142/77 (98) 100 01/21/19 04:00 88 15 128/57 (80) 100 01/21/19 04:00 75 01/21/19 04:00 Room Air 01/21/19 03:00 81 15 129/63 (85) 99 01/21/19 02:00 77 18 133/61 (85) 99 01/21/19 01:00 82 18 133/61 (85) 99 01/21/19 00:00 Room Air 01/21/19 00:00 90 18 131/56 (81) 99 01/20/19 23:00 94 15 138/59 (85) 99 01/20/19 22:00 89 16 138/59 (85) 99 01/20/19 21:00 91 17 125/59 (81) 99 01/20/19 20:00 98.4 92 17 124/72 (89) 99 01/20/19 20:00 100 Room Air 01/20/19 20:00 Room Air 01/20/19 20:00 93 01/20/19 19:00 91 13 123/49 (73) 99 01/20/19 18:00 77 13 124/49 (74) 98 01/20/19 17:00 73 13 108/46 (66) 97 01/20/19 16:00 98.2 71 16 112/63 (79) 97 01/20/19 16:00 Nasal Cannula 2.0 01/20/19 16:00 79 01/20/19 15:00 82 17 119/56 (77) 99 01/20/19 14:00 84 16 86/55 (65) 98 01/20/19 13:00 73 17 92/47 (62) 98 01/20/19 12:00 Nasal Cannula 2.0 01/20/19 12:00 98.1 84 14 97/52 (67) 97 01/20/19 12:00 68 01/20/19 11:00 75 17 115/51 (72) 98 01/20/19 10:30 69 14 97/41 (59) 98 01/20/19 10:00 67 16 118/53 (74) 100 01/20/19 09:30 79 16 123/50 (74) 100 01/20/19 09:00 123/50 01/20/19 09:00 80 14 121/59 (79) 100 01/20/19 08:30 79 16 93/81 (85) 100 01/20/19 08:00 Nasal Cannula 2.0 01/20/19 08:00 112/50 01/20/19 08:00 76 01/20/19 08:00 88 17 105/45 (65) 100 01/20/19 07:33 99 Nasal Cannula 2.0 28 01/20/19 07:30 98.8 84 16 112/50 (70) 100 01/20/19 07:00 102/50 01/20/19 07:00 80 15 102/50 (67) 100 01/20/19 06:45 83 17 131/64 (86) 100 01/20/19 06:30 86 18 121/49 (73) 100 01/20/19 06:15 73 26 132/46 (74) 99 01/20/19 06:00 73 16 115/46 (69) 99 01/20/19 06:00 132/48 01/20/19 05:45 73 16 111/49 (69) 99 01/20/19 05:30 73 16 123/50 (74) 99 01/20/19 05:15 72 16 115/44 (67) 99 01/20/19 05:00 76 14 124/45 (71) 99 01/20/19 05:00 109/51 01/20/19 04:45 74 16 121/50 (73) 99 01/20/19 04:30 91 19 122/65 (84) 100 01/20/19 04:15 89 16 113/68 (83) 100 01/20/19 04:00 98.8 94 17 113/54 (73) 100 01/20/19 04:00 95 01/20/19 04:00 Nasal Cannula 2.0 01/20/19 03:45 97 16 123/50 (74) 99 01/20/19 03:15 88 18 121/51 (74) 100 01/20/19 03:00 87 17 101/47 (65) 100 01/20/19 03:00 101/47 01/20/19 02:45 87 17 100/44 (62) 100 01/20/19 02:30 83 17 107/49 (68) 99 01/20/19 02:15 91 17 121/58 (79) 100 01/20/19 02:00 94 17 121/52 (75) 99 01/20/19 02:00 121/52 01/20/19 01:45 99 18 123/56 (78) 99 01/20/19 01:30 85 14 114/51 (72) 99 01/20/19 01:15 82 15 124/48 (73) 99 01/20/19 01:00 88 15 115/55 (75) 100 01/20/19 01:00 115/55 01/20/19 00:30 89 17 122/63 (82) 100 01/20/19 00:00 98.2 79 16 111/55 (73) 100 01/20/19 00:00 Nasal Cannula 2.0 01/20/19 00:00 111/55 01/20/19 00:00 89 01/19/19 23:30 79 16 112/53 (72) 100 01/19/19 23:00 120/53 01/19/19 23:00 92 17 120/53 (75) 100 01/19/19 22:30 90 17 136/66 (89) 100 01/19/19 22:00 81 16 118/52 (74) 100 01/19/19 22:00 118/52 01/19/19 21:30 87 19 106/82 (90) 100 01/19/19 21:00 93 19 123/59 (80) 99 01/19/19 21:00 123/59 01/19/19 20:30 99 19 125/73 (90) 99 01/19/19 20:00 105/42 01/19/19 20:00 Nasal Cannula 2.0 01/19/19 20:00 86 01/19/19 20:00 97.8 72 14 105/42 (63) 100 01/19/19 19:41 105/46 01/19/19 19:30 71 16 105/49 (67) 99 01/19/19 19:00 94 17 98/40 (59) 98 01/19/19 19:00 98/40 01/19/19 18:30 88 17 130/107 (115) 100 01/19/19 18:00 113/55 01/19/19 18:00 84 17 113/55 (74) 100 01/19/19 17:30 57 15 115/49 (71) 100 01/19/19 17:00 122/44 01/19/19 17:00 122/44 01/19/19 17:00 65 15 92/64 (73) 100 01/19/19 16:30 70 16 119/49 (72) 100 01/19/19 16:00 Nasal Cannula 2.0 01/19/19 16:00 112/46 01/19/19 16:00 67 01/19/19 16:00 97.6 67 14 112/46 (68) 100 01/19/19 15:30 68 14 107/49 (68) 100 01/19/19 15:00 69 15 127/51 (76) 100 01/19/19 15:00 127/51 01/19/19 14:45 72 15 126/51 (76) 100 01/19/19 14:30 68 16 121/47 (71) 100 01/19/19 14:15 69 15 123/52 (75) 100 01/19/19 14:00 67 15 128/46 (73) 100 01/19/19 14:00 127/60 01/19/19 13:30 67 15 130/49 (76) 100 01/19/19 13:00 126/53 01/19/19 13:00 69 17 126/53 (77) 100 01/19/19 12:30 69 17 131/54 (79) 100 01/19/19 12:00 98.6 71 15 116/47 (70) 99 01/19/19 12:00 77 01/19/19 12:00 Nasal Cannula 2.0 01/19/19 11:30 76 17 116/47 (70) 98 01/19/19 11:00 116/47 01/19/19 11:00 74 19 111/59 (76) 98 01/19/19 10:30 69 16 81/51 (61) 100 01/19/19 10:30 105/64 01/19/19 10:29 105/64 01/19/19 10:00 81/51 01/19/19 10:00 74 16 97/60 (72) 100 01/19/19 09:30 72 16 96/63 (74) 100 01/19/19 09:00 72 16 149/75 (99) 100 01/19/19 09:00 96/63 01/19/19 08:30 74 16 107/64 (78) 99 Intake and Output 01/20/19 01/21/19 19:00 07:00 Intake Total 2907.543 ml 1138.713 ml Output Total 640 ml 1410 ml Balance 2267.543 ml -271.287 ml Intake Oral 410 ml IV Total 2377.543 ml 1138.713 ml Other 120 ml Output Urine Total 640 ml 1410 ml Stool Total 0 ml Labs Test 01/18/19 21:33 01/18/19 21:45 01/18/19 22:45 01/18/19 23:20 Arterial Blood pH 7.404 (7.350-7.450) Arterial Blood Partial Pressure CO2 33.1 mmHg (35.0-45.0) Arterial Blood Partial Pressure O2 148.4 mmHg (75.0-100.0) Arterial Blood HCO3 20.2 mmol/L (22.0-26.0) Arterial Blood Oxygen Saturation 98.4 % (95-100) Arterial Blood Base Excess -3.7 (-2-2) Cristofer Test Positive Sodium Level 140 MMOL/L (136-145) Potassium Level 5.1 MMOL/L (3.5-5.1) Chloride Level 106 MMOL/L (98-107) Carbon Dioxide Level 23 MMOL/L (21-32) Anion Gap 11 mmol/L (5-15) Blood Urea Nitrogen 40 mg/dL (7-18) Creatinine 4.2 MG/DL (0.55-1.30) Estimat Glomerular Filtration Rate mL/min (>60) Glucose Level 165 MG/DL (74-106) Lactic Acid Level 3.40 mmol/L (0.4-2.0) 2.50 mmol/L (0.66-2.22) Calcium Level 8.4 MG/DL (8.5-10.1) Phosphorus Level 4.8 MG/DL (2.5-4.9) Magnesium Level 1.6 MG/DL (1.8-2.4) Total Bilirubin 0.6 MG/DL (0.2-1.0) Aspartate Amino Transf (AST/SGOT) 18 U/L (15-37) Alanine Aminotransferase (ALT/SGPT) 15 U/L (12-78) Alkaline Phosphatase 48 U/L (46-116) Total Creatine Kinase 117 U/L (26-308) Creatine Kinase MB 1.3 NG/ML (0.0-3.6) Creatine Kinase MB Relative Index 1.1 Troponin I 0.041 ng/mL (0.000-0.056) Pro-B-Type Natriuretic Peptide 7678 pg/mL (0-125) Total Protein 5.6 G/DL (6.4-8.2) Albumin 1.7 G/DL (3.4-5.0) Globulin 3.9 g/dL Albumin/Globulin Ratio 0.4 (1.0-2.7) White Blood Count 13.2 K/UL (4.8-10.8) Red Blood Count 3.48 M/UL (4.70-6.10) Hemoglobin 10.2 G/DL (14.2-18.0) Hematocrit 31.0 % (42.0-52.0) Mean Corpuscular Volume 89 FL (80-99) Mean Corpuscular Hemoglobin 29.4 PG (27.0-31.0) Mean Corpuscular Hemoglobin Concent 33.0 G/DL (32.0-36.0) Red Cell Distribution Width 13.7 % (11.6-14.8) Platelet Count 158 K/UL (150-450) Mean Platelet Volume 6.2 FL (6.5-10.1) Neutrophils (%) (Auto) 72.9 % (45.0-75.0) Lymphocytes (%) (Auto) 8.7 % (20.0-45.0) Monocytes (%) (Auto) 17.8 % (1.0-10.0) Eosinophils (%) (Auto) 0.0 % (0.0-3.0) Basophils (%) (Auto) 0.6 % (0.0-2.0) Prothrombin Time 11.7 SEC (9.30-11.50) Prothromb Time International Ratio 1.1 (0.9-1.1) Activated Partial Thromboplast Time 31 SEC (23-33) Urine Color Yellow Urine Appearance Cloudy Urine pH 5 (4.5-8.0) Urine Specific [place] 1.020 (1.005-1.035) Urine Protein 3+ (NEGATIVE) Urine Glucose (UA) Negative (NEGATIVE) Urine Ketones 1+ (NEGATIVE) Urine Blood 5+ (NEGATIVE) Urine Nitrite Negative (NEGATIVE) Urine Bilirubin 1+ (NEGATIVE) Urine Ictotest Negative (NEGATIVE) Urine Urobilinogen 1 MG/DL (0.0-1.0) Urine Leukocyte Esterase 3+ (NEGATIVE) Urine RBC Tntc /HPF (0 - 0) Urine WBC Tntc /HPF (0 - 0) Urine Squamous Epithelial Cells None /LPF (NONE/OCC) Urine Bacteria Many /HPF (NONE) Test 01/19/19 06:18 01/19/19 08:20 01/19/19 15:05 01/19/19 22:30 White Blood Count 11.4 K/UL (4.8-10.8) Red Blood Count 4.25 M/UL (4.70-6.10) Hemoglobin 12.8 G/DL (14.2-18.0) Hematocrit 39.6 % (42.0-52.0) Mean Corpuscular Volume 93 FL (80-99) Mean Corpuscular Hemoglobin 30.1 PG (27.0-31.0) Mean Corpuscular Hemoglobin Concent 32.4 G/DL (32.0-36.0) Red Cell Distribution Width 14.6 % (11.6-14.8) Platelet Count 191 K/UL (150-450) Mean Platelet Volume 7.1 FL (6.5-10.1) Neutrophils (%) (Auto) 77.3 % (45.0-75.0) Lymphocytes (%) (Auto) 8.3 % (20.0-45.0) Monocytes (%) (Auto) 13.7 % (1.0-10.0) Eosinophils (%) (Auto) 0.0 % (0.0-3.0) Basophils (%) (Auto) 0.6 % (0.0-2.0) Activated Partial Thromboplast Time > 150 SEC (23-33) 125 SEC (23-33) 49 SEC (23-33) Sodium Level 140 MMOL/L (136-145) Potassium Level 5.1 MMOL/L (3.5-5.1) Chloride Level 106 MMOL/L (98-107) Carbon Dioxide Level 22 MMOL/L (21-32) Anion Gap 12 mmol/L (5-15) Blood Urea Nitrogen 41 mg/dL (7-18) Creatinine 3.3 MG/DL (0.55-1.30) Estimat Glomerular Filtration Rate mL/min (>60) Glucose Level 153 MG/DL (74-106) Lactic Acid Level 3.00 mmol/L (0.4-2.0) 2.50 mmol/L (0.66-2.22) 3.40 mmol/L (0.4-2.0) Calcium Level 8.6 MG/DL (8.5-10.1) Total Bilirubin 0.4 MG/DL (0.2-1.0) Aspartate Amino Transf (AST/SGOT) 26 U/L (15-37) Alanine Aminotransferase (ALT/SGPT) 14 U/L (12-78) Alkaline Phosphatase 59 U/L (46-116) Total Protein 6.6 G/DL (6.4-8.2) Albumin 2.0 G/DL (3.4-5.0) Globulin 4.6 g/dL Albumin/Globulin Ratio 0.4 (1.0-2.7) Urine Random Sodium 43 mmol/L (20-110) Test 01/19/19 23:40 01/20/19 05:00 01/20/19 06:50 01/20/19 15:00 Lactic Acid Level 3.40 mmol/L (0.66-2.22) 1.50 mmol/L (0.4-2.0) Urine Eosinophils None seen (NONE SEEN) White Blood Count 9.8 K/UL (4.8-10.8) Red Blood Count 3.65 M/UL (4.70-6.10) Hemoglobin 11.0 G/DL (14.2-18.0) Hematocrit 33.5 % (42.0-52.0) Mean Corpuscular Volume 92 FL (80-99) Mean Corpuscular Hemoglobin 30.3 PG (27.0-31.0) Mean Corpuscular Hemoglobin Concent 33.0 G/DL (32.0-36.0) Red Cell Distribution Width 14.8 % (11.6-14.8) Platelet Count 198 K/UL (150-450) Mean Platelet Volume 7.2 FL (6.5-10.1) Neutrophils (%) (Auto) 83.6 % (45.0-75.0) Lymphocytes (%) (Auto) 6.0 % (20.0-45.0) Monocytes (%) (Auto) 9.5 % (1.0-10.0) Eosinophils (%) (Auto) 0.5 % (0.0-3.0) Basophils (%) (Auto) 0.3 % (0.0-2.0) Activated Partial Thromboplast Time 103 SEC (23-33) 70 SEC (23-33) Sodium Level 140 MMOL/L (136-145) Potassium Level 3.8 MMOL/L (3.5-5.1) Chloride Level 105 MMOL/L (98-107) Carbon Dioxide Level 26 MMOL/L (21-32) Anion Gap 10 mmol/L (5-15) Blood Urea Nitrogen 29 mg/dL (7-18) Creatinine 2.0 MG/DL (0.55-1.30) Estimat Glomerular Filtration Rate mL/min (>60) Glucose Level 139 MG/DL (74-106) Hemoglobin A1c 6.0 % (4.3-6.0) Uric Acid 5.8 MG/DL (2.6-7.2) Calcium Level 8.6 MG/DL (8.5-10.1) Phosphorus Level 3.3 MG/DL (2.5-4.9) Magnesium Level 1.5 MG/DL (1.8-2.4) Iron Level 11 ug/dL (50-175) Total Iron Binding Capacity 113 ug/dL (250-450) Percent Iron Saturation 10 % (15-50) Unsaturated Iron Binding 102 ug/dL (112-346) Ferritin 1327 NG/ML (8-388) Total Bilirubin 0.4 MG/DL (0.2-1.0) Gamma Glutamyl Transpeptidase 14 U/L (5-85) Aspartate Amino Transf (AST/SGOT) 34 U/L (15-37) Alanine Aminotransferase (ALT/SGPT) 24 U/L (12-78) Alkaline Phosphatase 52 U/L (46-116) Ammonia < 10 umol/L (11-32) Total Creatine Kinase 188 U/L (26-308) Troponin I 0.041 ng/mL (0.000-0.056) C-Reactive Protein, Quantitative 27.0 mg/dL (0.00-0.90) Pro-B-Type Natriuretic Peptide 2311 pg/mL (0-125) Total Protein 6.1 G/DL (6.4-8.2) Albumin 2.0 G/DL (3.4-5.0) Globulin 4.1 g/dL Albumin/Globulin Ratio 0.5 (1.0-2.7) Triglycerides Level 38 MG/DL (30-150) Cholesterol Level 91 MG/DL (< 200) LDL Cholesterol 30 mg/dL (<100) HDL Cholesterol 37 MG/DL (40-60) Cholesterol/HDL Ratio 2.5 (3.3-4.4) Vitamin B12 Level 374 PG/ML (193-986) Folate 9.0 NG/ML (8.6-58.9) Thyroid Stimulating Hormone (TSH) 2.887 uiU/mL (0.358-3.740) Test 01/21/19 05:30 White Blood Count 9.7 K/UL (4.8-10.8) Red Blood Count 3.56 M/UL (4.70-6.10) Hemoglobin 10.8 G/DL (14.2-18.0) Hematocrit 32.3 % (42.0-52.0) Mean Corpuscular Volume 91 FL (80-99) Mean Corpuscular Hemoglobin 30.3 PG (27.0-31.0) Mean Corpuscular Hemoglobin Concent 33.4 G/DL (32.0-36.0) Red Cell Distribution Width 14.7 % (11.6-14.8) Platelet Count 191 K/UL (150-450) Mean Platelet Volume 6.5 FL (6.5-10.1) Neutrophils (%) (Auto) 79.1 % (45.0-75.0) Lymphocytes (%) (Auto) 8.9 % (20.0-45.0) Monocytes (%) (Auto) 10.2 % (1.0-10.0) Eosinophils (%) (Auto) 1.5 % (0.0-3.0) Basophils (%) (Auto) 0.4 % (0.0-2.0) Erythrocyte Sedimentation Rate 91 MM/HR (0-20) Prothrombin Time 11.2 SEC (9.30-11.50) Prothromb Time International Ratio 1.1 (0.9-1.1) Activated Partial Thromboplast Time 59 SEC (23-33) Sodium Level 140 MMOL/L (136-145) Potassium Level 3.7 MMOL/L (3.5-5.1) Chloride Level 107 MMOL/L (98-107) Carbon Dioxide Level 25 MMOL/L (21-32) Anion Gap 8 mmol/L (5-15) Blood Urea Nitrogen 22 mg/dL (7-18) Creatinine 1.5 MG/DL (0.55-1.30) Estimat Glomerular Filtration Rate mL/min (>60) Glucose Level 163 MG/DL (74-106) Lactic Acid Level 1.40 mmol/L (0.4-2.0) Uric Acid 4.4 MG/DL (2.6-7.2) Calcium Level 8.4 MG/DL (8.5-10.1) Phosphorus Level 2.2 MG/DL (2.5-4.9) Magnesium Level 2.3 MG/DL (1.8-2.4) Total Bilirubin 0.4 MG/DL (0.2-1.0) Aspartate Amino Transf (AST/SGOT) 22 U/L (15-37) Alanine Aminotransferase (ALT/SGPT) 20 U/L (12-78) Alkaline Phosphatase 50 U/L (46-116) C-Reactive Protein, Quantitative 23.6 mg/dL (0.00-0.90) Pro-B-Type Natriuretic Peptide 1326 pg/mL (0-125) Total Protein 5.7 G/DL (6.4-8.2) Albumin 1.8 G/DL (3.4-5.0) Globulin 3.9 g/dL Albumin/Globulin Ratio 0.5 (1.0-2.7) Amylase Level 36 U/L (25-115) Lipase 43 U/L (73-393) Valproic Acid (Depakene) Level 20 MCG/ML (50-100) Height (Feet): 5 Height (Inches): 9.00 Weight (Pounds): 168 Objective General: severe distress, chronically Ill ENT: moist mucus membranes Neck: limited range of motion, RIJ Respiratory: respiratory distress, rhonchi++ noted, nc Cardiovascular: RRr, no mgr Gastrointestinal: normal inspection, soft Musculoskeletal: normal inspection Neurologic: responsive, motor weakness Psychiatric: depressed affect Skin: no rash : +Alma Farmer NP Jan 21, 2019 08:17
--- NOTE | 2019-01-21 08:44 | Diagnostic Imaging Report ---
EXAM: XR Chest, 1 View CLINICAL HISTORY: F/U TECHNIQUE: Frontal view of the chest. COMPARISON: 01/18/19. FINDINGS: There is a redemonstrated central venous catheter in a right internal jugular approach, tip appropriately positioned near the cavoatrial junction. No pneumothorax. There is persistent retrocardiac consolidation. I do suspect that there is an increasing component of basilar consolidation. Degenerative changes of the spine. IMPRESSION: Increasing left base consolidation.
[2019-01-21] MEDS: Ascorbic Acid 500mg tab ORAL SCH ×2 (09:23→17:38)
[2019-01-21] MEDS: Docusate 100mg cap ORAL SCH ×3 (09:23→17:38)
--- NOTE | 2019-01-21 10:13 | Nephrology Progress Note ---
Assessment/Plan Problem List: (1) Septic shock (2) Renal insufficiency (3) Urinary tract infection (4) Lung mass (5) Decubitus skin ulcer Assessment Acute renal failure resolving Shock / Sepsis Acute Encephalopathy Lung mass UTI Decubitus sacral Plan Megace PO for apetite mag IV as needed Fluids- down on rate Off Pressors Midodrine Monitor renal parameters St eval Jose surveillance BC Per orders per consultants Subjective ROS Limited/Unobtainable: No Constitutional: Reports: malaise, other - more responsive Objective Objective Last 24 Hour Vital Signs Date Time Temp Pulse Resp B/P (MAP) Pulse Ox O2 Delivery O2 Flow Rate FiO2 01/21/19 08:00 98.3 72 14 98 01/21/19 07:00 75 15 123/52 (75) 99 01/21/19 06:00 98.2 85 14 101/61 (74) 100 01/21/19 05:00 84 15 142/77 (98) 100 01/21/19 04:00 88 15 128/57 (80) 100 01/21/19 04:00 75 01/21/19 04:00 Room Air 01/21/19 03:00 81 15 129/63 (85) 99 01/21/19 02:00 77 18 133/61 (85) 99 01/21/19 01:00 82 18 133/61 (85) 99 01/21/19 00:00 Room Air 01/21/19 00:00 90 18 131/56 (81) 99 01/20/19 23:00 94 15 138/59 (85) 99 01/20/19 22:00 89 16 138/59 (85) 99 01/20/19 21:00 91 17 125/59 (81) 99 01/20/19 20:00 98.4 92 17 124/72 (89) 99 01/20/19 20:00 100 Room Air 01/20/19 20:00 Room Air 01/20/19 20:00 93 01/20/19 19:00 91 13 123/49 (73) 99 01/20/19 18:00 77 13 124/49 (74) 98 01/20/19 17:00 73 13 108/46 (66) 97 01/20/19 16:00 98.2 71 16 112/63 (79) 97 01/20/19 16:00 Nasal Cannula 2.0 01/20/19 16:00 79 01/20/19 15:00 82 17 119/56 (77) 99 01/20/19 14:00 84 16 86/55 (65) 98 01/20/19 13:00 73 17 92/47 (62) 98 01/20/19 12:00 Nasal Cannula 2.0 01/20/19 12:00 98.1 84 14 97/52 (67) 97 01/20/19 12:00 68 01/20/19 11:00 75 17 115/51 (72) 98 01/20/19 10:30 69 14 97/41 (59) 98 Intake and Output 01/20/19 01/21/19 19:00 07:00 Intake Total 2907.543 ml 1138.713 ml Output Total 640 ml 1410 ml Balance 2267.543 ml -271.287 ml Intake Oral 410 ml IV Total 2377.543 ml 1138.713 ml Other 120 ml Output Urine Total 640 ml 1410 ml Stool Total 0 ml Laboratory Tests 01/20/19 15:00: Activated Partial Thromboplast Time 70H 01/21/19 05:30: Activated Partial Thromboplast Time 59H, White Blood Count 9.7, Red Blood Count 3.56L, Hemoglobin 10.8L, Hematocrit 32.3L, Mean Corpuscular Volume 91, Mean Corpuscular Hemoglobin 30.3, Mean Corpuscular Hemoglobin Concent 33.4, Red Cell Distribution Width 14.7, Platelet Count 191, Mean Platelet Volume 6.5, Neutrophils (%) (Auto) 79.1H, Lymphocytes (%) (Auto) 8.9L, Monocytes (%) (Auto) 10.2H, Eosinophils (%) (Auto) 1.5, Basophils (%) (Auto) 0.4, Erythrocyte Sedimentation Rate 91H, Prothrombin Time 11.2, Prothromb Time International Ratio 1.1, Sodium Level 140, Potassium Level 3.7, Chloride Level 107, Carbon Dioxide Level 25, Anion Gap 8, Blood Urea Nitrogen 22H, Creatinine 1.5H, Estimat Glomerular Filtration Rate , Glucose Level 163H, Lactic Acid Level 1.40 , Uric Acid 4.4, Calcium Level 8.4L, Phosphorus Level 2.2L, Magnesium Level 2.3 , Total Bilirubin 0.4, Aspartate Amino Transf (AST/SGOT) 22, Alanine Aminotransferase (ALT/SGPT) 20, Alkaline Phosphatase 50, C-Reactive Protein, Quantitative 23.6H, Pro-B-Type Natriuretic Peptide 1326H, Total Protein 5.7L, Albumin 1.8L, Globulin 3.9, Albumin/Globulin Ratio 0.5L, Amylase Level 36, Lipase 43L, Valproic Acid (Depakene) Level 20L Height (Feet): 5 Height (Inches): 9.00 Weight (Pounds): 168 General Appearance: no apparent distress, lethargic Cardiovascular: normal rate Respiratory/Chest: decreased breath sounds Abdomen: distended Rubén Nicolas MD Jan 21, 2019 10:13
[2019-01-21] MEDS ORDERED: Potassium Phosphate 30 MM in NS 275 ML IV ONE (10:30)
[2019-01-21] MEDS ORDERED: D5 1/2NS 1,000 ML IV SCH (12:00)
[2019-01-21] MEDS ORDERED: Piperacillin/Tazobactam 3.375 GM in NS 110 ML IVPB SCH (12:30)
--- NOTE | 2019-01-21 13:22 | Surgery Progress Note ---
Surgery Progress Note Subjective Additional Comments Patient seen and examined at bedside. Extubated and doing well. Responsive and says he feels fine. Labs improved. Overall condition improving. Wound stable. Objective Last 24 Hour Vital Signs Date Time Temp Pulse Resp B/P (MAP) Pulse Ox O2 Delivery O2 Flow Rate FiO2 01/21/19 08:00 98.3 72 14 98 01/21/19 07:00 75 15 123/52 (75) 99 01/21/19 06:00 98.2 85 14 101/61 (74) 100 01/21/19 05:00 84 15 142/77 (98) 100 01/21/19 04:00 88 15 128/57 (80) 100 01/21/19 04:00 75 01/21/19 04:00 Room Air 01/21/19 03:00 81 15 129/63 (85) 99 01/21/19 02:00 77 18 133/61 (85) 99 01/21/19 01:00 82 18 133/61 (85) 99 01/21/19 00:00 Room Air 01/21/19 00:00 90 18 131/56 (81) 99 01/20/19 23:00 94 15 138/59 (85) 99 01/20/19 22:00 89 16 138/59 (85) 99 01/20/19 21:00 91 17 125/59 (81) 99 01/20/19 20:00 98.4 92 17 124/72 (89) 99 01/20/19 20:00 100 Room Air 01/20/19 20:00 Room Air 01/20/19 20:00 93 01/20/19 19:00 91 13 123/49 (73) 99 01/20/19 18:00 77 13 124/49 (74) 98 01/20/19 17:00 73 13 108/46 (66) 97 01/20/19 16:00 98.2 71 16 112/63 (79) 97 01/20/19 16:00 Nasal Cannula 2.0 01/20/19 16:00 79 01/20/19 15:00 82 17 119/56 (77) 99 01/20/19 14:00 84 16 86/55 (65) 98 I&O Intake and Output 01/20/19 01/21/19 19:00 07:00 Intake Total 2907.543 ml 1138.713 ml Output Total 640 ml 1410 ml Balance 2267.543 ml -271.287 ml Intake Oral 410 ml IV Total 2377.543 ml 1138.713 ml Other 120 ml Output Urine Total 640 ml 1410 ml Stool Total 0 ml Dressing: dry Wound: clean Cardiovascular: RSR Respiratory: clear Abdomen: soft, present bowel sounds, non-distended Extremities: no edema, no tenderness, no cyanosis Laboratory Tests Test 01/20/19 15:00 01/21/19 05:30 01/21/19 12:30 Activated Partial Thromboplast Time 70 SEC (23-33) H 59 SEC (23-33) H 120 SEC (23-33) H White Blood Count 9.7 K/UL (4.8-10.8) Red Blood Count 3.56 M/UL (4.70-6.10) L Hemoglobin 10.8 G/DL (14.2-18.0) L Hematocrit 32.3 % (42.0-52.0) L Mean Corpuscular Volume 91 FL (80-99) Mean Corpuscular Hemoglobin 30.3 PG (27.0-31.0) Mean Corpuscular Hemoglobin Concent 33.4 G/DL (32.0-36.0) Red Cell Distribution Width 14.7 % (11.6-14.8) Platelet Count 191 K/UL (150-450) Mean Platelet Volume 6.5 FL (6.5-10.1) Neutrophils (%) (Auto) 79.1 % (45.0-75.0) H Lymphocytes (%) (Auto) 8.9 % (20.0-45.0) L Monocytes (%) (Auto) 10.2 % (1.0-10.0) H Eosinophils (%) (Auto) 1.5 % (0.0-3.0) Basophils (%) (Auto) 0.4 % (0.0-2.0) Erythrocyte Sedimentation Rate 91 MM/HR (0-20) H Prothrombin Time 11.2 SEC (9.30-11.50) Prothromb Time International Ratio 1.1 (0.9-1.1) Sodium Level 140 MMOL/L (136-145) Potassium Level 3.7 MMOL/L (3.5-5.1) Chloride Level 107 MMOL/L (98-107) Carbon Dioxide Level 25 MMOL/L (21-32) Anion Gap 8 mmol/L (5-15) Blood Urea Nitrogen 22 mg/dL (7-18) H Creatinine 1.5 MG/DL (0.55-1.30) H Estimat Glomerular Filtration Rate mL/min (>60) Glucose Level 163 MG/DL (74-106) H Lactic Acid Level 1.40 mmol/L (0.4-2.0) Uric Acid 4.4 MG/DL (2.6-7.2) Calcium Level 8.4 MG/DL (8.5-10.1) L Phosphorus Level 2.2 MG/DL (2.5-4.9) L Magnesium Level 2.3 MG/DL (1.8-2.4) Total Bilirubin 0.4 MG/DL (0.2-1.0) Aspartate Amino Transf (AST/SGOT) 22 U/L (15-37) Alanine Aminotransferase (ALT/SGPT) 20 U/L (12-78) Alkaline Phosphatase 50 U/L (46-116) C-Reactive Protein, Quantitative 23.6 mg/dL (0.00-0.90) H Pro-B-Type Natriuretic Peptide 1326 pg/mL (0-125) H Total Protein 5.7 G/DL (6.4-8.2) L Albumin 1.8 G/DL (3.4-5.0) L Globulin 3.9 g/dL Albumin/Globulin Ratio 0.5 (1.0-2.7) L Amylase Level 36 U/L (25-115) Lipase 43 U/L (73-393) L Valproic Acid (Depakene) Level 20 MCG/ML (50-100) L Plan Problems: (1) Decubitus skin ulcer Assessment & Plan: Pt presented on admission with DTPI sacrococcygeal (L)1.5cm x (W)0.8cm.Base of wound purple with maroon borders. Base of wound fluctuant centrally. Additional shearing noted periwound with scarring noted from previous wounds to sacrum,R and L buttocks. Both ischial areas noted to have darker than is normal skin tone without induration /erythema. Resolving pressure injury R heel. Thick callused cap noted with surrounding fluctuance and non-blanchable erythema (L)3.5cm x (W)3.5cm. Non-blanchable erythema without fluctuance or induration noted to L heel. Tx.Plan: Apply Moisture Barrier Paste to sacrococcygeal area. Cover with Optifoam drsg. Change every 3days and prn. Apply Moisture Barrier Paste to both ischail areas and scrotum with each incontinence care. Apply Cavilon Skin Barrier to Both heels. Cover each heel with Optifoam drsg. Change every 7 days and prn. APM/PHIL mattress. Reposition at least every 2hours or as tolerated. Off-load heels with Pillow. (2) Urinary tract infection (3) Renal insufficiency (4) Lung mass Assessment & Plan: No large vessel central pulmonary emboli. Questionable opacification of the right lower lobe branches, versus artifact due to motion, right lower lobe emboli not excludable 2.5 x 2.3 x 1.8 cm right apical masslike opacity with smaller adjacent similar smaller opacities. Favor scarring, but the possibility of neoplasm cannot be ruled out. Comparison with any prior exams and may be available would be useful Left hilar adenopathy. Atelectasis and consolidation of the posterior medial left lower lobe Evidence of old granulomatous disease in the left left greater than right hilar and mediastinal lymph nodes. Mildly distended esophagus, probably age-related, downstream obstructive process not completely excludable. Correlate with clinical findings Small pericardial effusion. Mild edema of the subcutaneous fat Extensive endplate irregularity at T12-L1, probably on the basis of advanced degenerative change. Possibility of infection not excludable, however, correlation with clinical findings is advised consideration for MRI as clinically indicated Left adrenal calcifications, may indicate old hemorrhage (5) Pulmonary embolism (6) Septic shock Assessment & Plan: DAILY ESTIMATED NEEDS: Needs based on Wound, sepsis 75kg 25-35 kcals/kg [id number] total kcals 1.25-2 g protein/kg 94-150 g total protein 25-30ml/kcal mL/kg 3070-0297 total fluid mLs NUTRITION DIAGNOSIS: Increased kcal/ pro needs r/t wound healing as evidenced by BL heel wound, sacral unstageable wound. CURRENT DIET: NPO PO DIET RECOMMENDATIONS: As able-> LOW NA DIET (texture per LEAN MANAGER/ on puree + NTL CUSTOMER ENGINEERING SPECIALIST) ENTERAL NUTRITION RECOMMENDATIONS: NGT if part of POC-> Glucerna 1.5 @55ml/hr x24 hrs to provide 1320ml, 1980 kcal, 109g pro, 1002ml free H2O - If part of POC, obtain GI access, start Glucerna 1.5 @25ml/hr for 6 hrs. - Advance as tolerated 10ml/hr q4-6 hrs to goal. - Flush per MD, HOB Over 30 degrees * FEED W/ HEMODYNAMIC STABILITY * ---- ADDITIONAL RECOMMENDATIONS: 1) Wound care: w/ oral diet add BRUCE BID + VIT C 250mg BID + MVI x1 daily 2) LEAN MANAGER eval for diet vs non oral feeds 3) Feed w/ hemodynamic stability 4) Monitor BG/ need for hypoglycemic agents 5) Calibrated bed scale wts (7) Altered mental status (8) Severe sepsis Tawanda Alfaro Jan 21, 2019 13:22
[2019-01-21] MEDS ORDERED: Megace 400mg/10ml Susp ORAL SCH (18:00)
--- NOTE | 2019-01-21 21:58 | Consultation ---
Consult Note Assessment/Plan #[id number] lung mass no pe on CTA pna with possible aspiration AMS Bibiana Servin DO Jan 21, 2019 21:58
--- NOTE | 2019-01-21 22:02 | Progress Note ---
DATE: 01/21/2019 SUBJECTIVE: An ICU patient came with altered mental status, hypoxia, as well as PE. The patient is on heparin drip. He is alert, awake, and slightly confused. He is eating breakfast. His blood pressure was hypotensive, but currently is better. OBJECTIVE: VITAL SIGNS: Current blood pressure is 132/69, pulse 80s, respirations 70, and saturation 100%. SKIN: Good skin turgor. HEENT: NAD. CHEST: Bilaterally clear. CARDIOVASCULAR: Regular rhythm. No gallop. No murmur. ABDOMEN: Soft. EXTREMITIES: CCE. NEUROLOGIC: Generalized weakness. LABORATORY EXAMINATION: White count 9.7, hemoglobin 11, hematocrit 32, and platelets are 191,000. Chemistry panel - sodium 140, potassium 3.7, BUN 22, creatinine 1.5, and glucose 163. Phosphorus 2.2. Magnesium 2.3. BNP is 1326. ASSESSMENT: 1. Altered mental status. 2. Possible PE. 3. Hypertension. 4. Dementia. PLAN: 1. We will transfer to telemetry bed. 2. Continue heparin drip. 3. Continue Zosyn, Flagyl, and Risperdal. 4. We will consider . 5. Waiting for Pulmonary consult. 6. Discussed with charge nurse. Pedrito Mims M.D. DR: DILSHAD JOB#: [id number] CC:
[2019-01-22] VITALS: BP 153/88
[2019-01-22] MEDS ORDERED: Heparin 5000 units/ml inj IV ONE (02:00)
[2019-01-22] MEDS: Heparin 25,000u/D5W 500ml 500 ML IV SCH (03:09)
[2019-01-22 04:00] VITALS: BP 132/70
[2019-01-22 05:31] LABS: BASOPHILS % (AUTO) 0.4 % (0.0-2.0); EOSINOPHILS % (AUTO) 1.1 % (0.0-3.0); HEMATOCRIT 33.7 % (42.0-52.0); HEMOGLOBIN 10.9 G/DL (14.2-18.0); LYMPHOCYTES % (AUTO) 8.2 % (20.0-45.0); MEAN CORPUSCULAR VOLUME 91 FL (80-99); MONOCYTES % (AUTO) 9.4 % (1.0-10.0); NEUTROPHILS % (AUTO) 80.9 % (45.0-75.0); PLATELET COUNT 216 K/UL (150-450); RED BLOOD COUNT 3.69 M/UL (4.70-6.10); RED CELL DISTRIBUTION WIDTH 14.9 % (11.6-14.8); WHITE BLOOD COUNT 9.6 K/UL (4.8-10.8)
--- NOTE | 2019-01-22 05:46 | Consultation ---
DATE OF CONSULTATION: 01/21/2019 PULMONARY CONSULTATION REASON FOR CONSULTATION: Pulmonary embolism. HISTORY OF PRESENT ILLNESS: An elderly gentleman who was brought in from his facility after increased altered mental status. He has been oriented , but now with confusion, lethargy, cough. No reports of shortness of breath, nausea, vomiting, or diarrhea. He was given IV fluids and nonrebreather mask, was subsequently titrating to nasal cannula. PAST MEDICAL HISTORY: Includes dementia, depression, hypertension. MEDICATIONS: Pre-hospital medications and present medications were reviewed, reconciled, and documented in the electronic medical record by dose, frequency, and route. ALLERGIES: He has no known allergies. FAMILY HISTORY: Unavailable. REVIEW OF SYSTEMS: Unreliable. He is nonambulatory at baseline. PHYSICAL EXAMINATION: GENERAL: At the time my exam, he is alert. He is oriented to person. He is in no acute distress. He is afebrile. VITAL SIGNS: Pulse of 76, blood pressure 125/71. He is 99% on room air. HEENT: He is normocephalic and atraumatic. Poor dentition noted. Oropharynx is moist. Nasal mucosa is moist. NECK: Supple. LUNGS: Decreased at bases. No wheeze present. HEART: Regular rate and rhythm without a murmur. ABDOMEN: Soft and nontender. Positive bowel sounds. EXTREMITIES: Positive edema. Does spontaneously move all extremities. LABORATORY DATA: White count of 9.7, hemoglobin 10.8, and platelets are 191,000. Sodium is 140, potassium 3.7, chloride 107, bicarb 25, BUN 22, creatinine 1.5, and glucose is 163. Lactic acid is 1.4. Phosphorus is 2.2. BNP is 1326. LFTs are essentially normal. Cortisol is pending. Valproic acid is low at 20. Urinalysis, positive for leukocyte esterase. An ABG on admission, 7.4, 33, 148. Microbiology showing urine positive for ESBL Proteus. Blood cultures with Staph aureus. IMAGING STUDIES: A CT scan of the chest with contrast shows no gross vessel pulmonary emboli demonstrated, no evidence of RV dilatation, atelectasis and consolidation medial left lobe, left hilar lymphadenopathy with calcified nodes seen in the left hilum, no definite mediastinal lymphadenopathy, subcarinal fullness probably reflects distended fluid-filled esophagus. Lung demonstrates opacity in the right lung apex measuring 2.5 x 2.3 x 1.8, small amount of pericardial fluid, extensive degeneration in the spine. ASSESSMENT AND PLAN: Lung mass, right apical, suspicious for malignancy with adenopathy. CT scan is negative per report for central pulmonary embolism. Urinary tract infection, pneumonia, and sepsis. Plan for the patient, he currently remains on Zosyn, which should be continued. Following blood, urine, sputum cultures. His heparin has been stopped. Aspiration precautions. We will need biopsy for further evaluation regarding underlying malignancy diagnosis. This may be able to be achieved via CT guidance. Home medications resumed. Aspiration precautions. Swallow evaluation. DVT prophylaxis, p.r.n. nebulizer treatments, and O2 to maintain saturations greater than 92%. We will continue to follow the patient for the remainder of his hospital stay. Bibiana Servin D.O. DR: Tramaine JOB#: [id number] CC:
[2019-01-22] MEDS: Depakote 125mg Sprinkles ORAL SCH ×3 (05:58→21:04)
[2019-01-22] MEDS: Piperacillin/Tazobactam 3.375 GM in NS 110 ML IVPB SCH ×3 (06:00→20:55)
[2019-01-22 06:12] LABS: ALANINE AMINOTRANSFERASE 15 U/L (12-78); ALBUMIN 1.9 G/DL (3.4-5.0); ALBUMIN/GLOBULIN RATIO 0.5 (1.0-2.7); ALKALINE PHOSPHATASE 61 U/L (46-116); ANION GAP 9 mmol/L (5-15); ASPARTATE AMINO TRANSFERASE 21 U/L (15-37); BILIRUBIN,TOTAL 0.5 MG/DL (0.2-1.0); BLOOD UREA NITROGEN 15 mg/dL (7-18); CALCIUM 8.7 MG/DL (8.5-10.1); CARBON DIOXIDE 26 MMOL/L (21-32); CHLORIDE 105 MMOL/L (98-107); CREATININE 1.4 MG/DL (0.55-1.30); GAMMA GLUTAMYL TRANSPEPTIDASE 12 U/L (5-85); PHOSPHORUS 2.5 MG/DL (2.5-4.9); POTASSIUM 3.9 MMOL/L (3.5-5.1); SODIUM 140 MMOL/L (136-145)
--- NOTE | 2019-01-22 07:19 | Pulmonology Progress Note ---
Assessment/Plan Assessment/Plan Lung mass, right apical, suspicious for malignancy with adenopathy CT scan is negative per report for central pulmonary embolism Urinary tract infection pneumonia sepsis FU iwth HO recommendations will need CT guided bx of lung mass abx nebs and suction wound care swallow eval Subjective Constitutional: Reports: no symptoms HEENT: Repors: no symptoms Respiratory: Reports: dry cough, shortness of breath Cardiovascular: Reports: no symptoms Gastrointestinal/Abdominal: Reports: no symptoms Neurologic: Reports: no symptoms Allergies: Coded Allergies: No Known Allergies (Unverified , 01/18/19) Subjective awake no distress no bleeding not getting oob on o2 no fever noted Objective Last 24 Hour Vital Signs Date Time Temp Pulse Resp B/P (MAP) Pulse Ox O2 Delivery O2 Flow Rate FiO2 01/22/19 04:00 Room Air 01/22/19 04:00 97.6 91 20 132/70 (90) 96 01/22/19 03:43 90 01/22/19 00:00 Room Air 01/22/19 00:00 97.9 96 20 153/88 (109) 98 01/21/19 21:00 98.4 72 20 135/69 (91) 96 01/21/19 20:00 Room Air 01/21/19 20:00 76 01/21/19 20:00 98.1 86 18 145/71 (95) 99 01/21/19 19:00 89 18 145/71 (95) 99 01/21/19 18:00 94 23 152/64 (93) 98 01/21/19 17:00 82 18 127/70 (89) 99 01/21/19 16:00 Room Air 01/21/19 16:00 98.0 75 23 127/56 (79) 98 01/21/19 16:00 71 01/21/19 15:00 73 17 96 01/21/19 14:00 74 17 132/69 (90) 98 01/21/19 13:00 76 17 127/63 (84) 93 01/21/19 12:00 Room Air 01/21/19 12:00 79 17 125/51 (75) 99 01/21/19 12:00 76 01/21/19 11:00 80 16 150/53 (85) 99 01/21/19 10:00 83 17 129/60 (83) 98 01/21/19 09:00 91 17 132/75 (94) 100 01/21/19 08:00 98.3 72 14 98 01/21/19 08:00 72 01/21/19 08:00 Room Air Intake and Output 01/21/19 01/22/19 19:00 07:00 Intake Total 1200.924 ml 883.40638 ml Output Total 1575 ml 390 ml Balance -374.076 ml 493.23497 ml Intake Oral 540 ml IV Total 660.924 ml 883.78239 ml Output Urine Total 1575 ml 390 ml General Appearance: WD/WN Respiratory/Chest: rhonchi Cardiovascular: normal rate, regular rhythm, edema Abdomen: soft, non tender, no organomegaly Extremities: no cyanosis Neurologic/Psychiatric: alert Laboratory Tests 01/21/19 12:30: Activated Partial Thromboplast Time 120H 01/22/19 00:45: Activated Partial Thromboplast Time 47H 01/22/19 04:00: White Blood Count 9.6, Red Blood Count 3.69L, Hemoglobin 10.9L, Hematocrit 33.7L , Mean Corpuscular Volume 91, Mean Corpuscular Hemoglobin 29.7, Mean Corpuscular Hemoglobin Concent 32.5, Red Cell Distribution Width 14.9H, Platelet Count 216, Mean Platelet Volume 5.9L, Neutrophils (%) (Auto) 80.9H, Lymphocytes (%) (Auto) 8.2L, Monocytes (%) (Auto) 9.4, Eosinophils (%) (Auto) 1.1, Basophils (%) (Auto) 0.4, Sodium Level 140, Potassium Level 3.9, Chloride Level 105, Carbon Dioxide Level 26, Anion Gap 9, Blood Urea Nitrogen 15, Creatinine 1.4H, Estimat Glomerular Filtration Rate , Glucose Level 109H, Uric Acid 3.6, Calcium Level 8.7, Phosphorus Level 2.5, Magnesium Level 2.0, Total Bilirubin 0.5, Gamma Glutamyl Transpeptidase 12, Aspartate Amino Transf (AST/ SGOT) 21, Alanine Aminotransferase (ALT/SGPT) 15, Alkaline Phosphatase 61, C- Reactive Protein, Quantitative 17.5H, Pro-B-Type Natriuretic Peptide 1404H, Total Protein 6.0L, Albumin 1.9L, Globulin 4.1, Albumin/Globulin Ratio 0.5L Current Medications Medications (Trade) Dose Ordered Sig/Vaughn Route PRN Reason Start Time Stop Time Status Last Admin Dose Admin Acetaminophen (Tylenol) 650 mg Q4H PRN ORAL Mild Pain/Temp > 100.5 01/21/19 20:45 02/18/19 20:44 Ascorbic Acid (Vitamin C) 250 mg TWICE A DAY ORAL 01/22/19 09:00 02/19/19 17:59 Chlorhexidine Gluconate (Michelle-Hex 2%) 1 applic DAILY@2000 TOPIC 01/22/19 20:00 02/18/19 19:59 Dextrose/Sodium Chloride 1,000 ml @ 75 mls/hr [id number] IV 01/21/19 20:45 02/18/19 20:44 01/21/19 21:03 Divalproex Sodium (Depakote Sprinkles) 250 mg Q8HR ORAL 01/21/19 22:00 02/19/19 13:59 01/22/19 05:58 Docusate Sodium (Colace) 100 mg TID ORAL 01/22/19 09:00 02/19/19 08:59 Heparin Sodium/ Dextrose 500 ml @ 23.95 mls/ hr ADJUST PER PROTOCOL IV 01/22/19 02:00 02/20/19 20:44 01/22/19 03:09 Magnesium Hydroxide (Mom) 30 ml DAILYPRN PRN ORAL Constipation 01/22/19 14:15 02/18/19 14:14 Megestrol Acetate (Megace) 400 mg TWICE A DAY ORAL 01/22/19 09:00 02/20/19 17:59 Metronidazole 100 ml @ 100 mls/hr Q8H IVPB 01/22/19 01:00 01/26/19 08:59 01/22/19 01:09 Midodrine (Pro-Amatine) 2.5 mg THREE TIMES A DAY ORAL 01/22/19 09:00 02/19/19 13:44 Multivitamins (Multivitamins) 1 tab DAILY ORAL 01/22/19 09:00 02/20/19 08:59 Ondansetron HCl (Zofran) 4 mg Q6H PRN IV Nausea & Vomiting 01/21/19 20:45 02/20/19 20:44 Pantoprazole (Protonix) 40 mg EVERY 12 HOURS ORAL 01/21/19 21:00 7/14/19 20:59 01/21/19 20:59 Piperacillin Sod/ Tazobactam Sod 3.375 gm/Sodium Chloride 110 ml @ 27.5 mls/hr Q8HR IVPB 01/21/19 22:00 01/28/19 12:29 01/22/19 06:00 Temazepam (Restoril) 15 mg BEDTIME ORAL 01/21/19 21:00 01/26/19 20:59 01/21/19 20:59 Bibiana Servin DO Jan 22, 2019 07:19
[2019-01-22 08:00] VITALS: BP 141/88
[2019-01-22] MEDS ORDERED: D5 1/2NS 1000ml IV ONE ×3 (09:42→15:57)
[2019-01-22] MEDS ORDERED: Tubing IV Secondary IV ONE ×2 (09:42→09:47)
[2019-01-22] MEDS ORDERED: NS 275ml ONE ×3 (09:42→15:57)
[2019-01-22] MEDS: Ascorbic Acid 500mg tab ORAL SCH ×2 (09:49→17:26)
[2019-01-22] MEDS: Megace 400mg/10ml Susp ORAL SCH ×2 (09:50→17:25)
[2019-01-22] MEDS: Docusate 100mg cap ORAL SCH ×3 (09:50→17:26)
[2019-01-22 12:00] VITALS: BP 110/57
--- NOTE | 2019-01-22 13:35 | Nephrology Progress Note ---
Assessment/Plan Problem List: (1) Septic shock (2) Renal insufficiency (3) Urinary tract infection (4) Lung mass (5) Decubitus skin ulcer Assessment Acute renal failure resolving Shock / Sepsis Acute Encephalopathy Lung mass UTI Decubitus sacral Plan Megace PO for apetite mag IV as needed Fluids- down on rate Off Pressors Midodrine Monitor renal parameters St eval Jose surveillance BC Per orders per consultants Subjective ROS Limited/Unobtainable: No Constitutional: Reports: malaise Objective Objective Last 24 Hour Vital Signs Date Time Temp Pulse Resp B/P (MAP) Pulse Ox O2 Delivery O2 Flow Rate FiO2 01/22/19 12:00 97.3 89 20 110/57 (74) 97 01/22/19 11:36 96 01/22/19 08:07 Room Air 01/22/19 08:00 98.2 90 18 141/88 (105) 97 01/22/19 07:45 82 01/22/19 04:00 Room Air 01/22/19 04:00 97.6 91 20 132/70 (90) 96 01/22/19 03:43 90 01/22/19 00:00 Room Air 01/22/19 00:00 97.9 96 20 153/88 (109) 98 01/21/19 21:00 98.4 72 20 135/69 (91) 96 01/21/19 20:00 Room Air 01/21/19 20:00 76 01/21/19 20:00 98.1 86 18 145/71 (95) 99 01/21/19 19:00 89 18 145/71 (95) 99 01/21/19 18:00 94 23 152/64 (93) 98 01/21/19 17:00 82 18 127/70 (89) 99 01/21/19 16:00 Room Air 01/21/19 16:00 98.0 75 23 127/56 (79) 98 01/21/19 16:00 71 01/21/19 15:00 73 17 96 01/21/19 14:00 74 17 132/69 (90) 98 Intake and Output 01/21/19 01/22/19 19:00 07:00 Intake Total 1200.924 ml 1033.30261 ml Output Total 1575 ml 390 ml Balance -374.076 ml 643.67773 ml Intake Oral 540 ml IV Total 660.924 ml 1033.38628 ml Output Urine Total 1575 ml 390 ml Laboratory Tests 01/22/19 00:45: Activated Partial Thromboplast Time 47H 01/22/19 04:00: White Blood Count 9.6, Red Blood Count 3.69L, Hemoglobin 10.9L, Hematocrit 33.7L , Mean Corpuscular Volume 91, Mean Corpuscular Hemoglobin 29.7, Mean Corpuscular Hemoglobin Concent 32.5, Red Cell Distribution Width 14.9H, Platelet Count 216, Mean Platelet Volume 5.9L, Neutrophils (%) (Auto) 80.9H, Lymphocytes (%) (Auto) 8.2L, Monocytes (%) (Auto) 9.4, Eosinophils (%) (Auto) 1.1, Basophils (%) (Auto) 0.4, Sodium Level 140, Potassium Level 3.9, Chloride Level 105, Carbon Dioxide Level 26, Anion Gap 9, Blood Urea Nitrogen 15, Creatinine 1.4H, Estimat Glomerular Filtration Rate , Glucose Level 109H, Uric Acid 3.6, Calcium Level 8.7, Phosphorus Level 2.5, Magnesium Level 2.0, Total Bilirubin 0.5, Gamma Glutamyl Transpeptidase 12, Aspartate Amino Transf (AST/ SGOT) 21, Alanine Aminotransferase (ALT/SGPT) 15, Alkaline Phosphatase 61, C- Reactive Protein, Quantitative 17.5H, Pro-B-Type Natriuretic Peptide 1404H, Total Protein 6.0L, Albumin 1.9L, Globulin 4.1, Albumin/Globulin Ratio 0.5L 01/22/19 07:45: Urine Eosinophils None seen 01/22/19 09:00: Activated Partial Thromboplast Time > 150*H 01/22/19 12:10: Activated Partial Thromboplast Time 67H Height (Feet): 5 Height (Inches): 9.00 Weight (Pounds): 168 General Appearance: no apparent distress Cardiovascular: normal rate Respiratory/Chest: decreased breath sounds Abdomen: soft Rubén Nicolas MD Jan 22, 2019 13:35
--- NOTE | 2019-01-22 13:55 | Cardiology Report ---
APPROVED REPORT EKG Measurement Heart [id number] Wide QRS tachycardia with occasional premature ventricular complexes Left axis deviation Low voltage QRS Right bundle branch block Cannot rule out Anteroseptal infarct, age undetermined Abnormal ECG
--- NOTE | 2019-01-22 13:57 | Surgery Progress Note ---
Surgery Progress Note Subjective Symptoms: improved, voiding well, passing flatus Objective Last 24 Hour Vital Signs Date Time Temp Pulse Resp B/P (MAP) Pulse Ox O2 Delivery O2 Flow Rate FiO2 01/22/19 12:00 97.3 89 20 110/57 (74) 97 01/22/19 12:00 Room Air 01/22/19 11:36 96 01/22/19 08:07 Room Air 01/22/19 08:00 98.2 90 18 141/88 (105) 97 01/22/19 07:45 82 01/22/19 04:00 Room Air 01/22/19 04:00 97.6 91 20 132/70 (90) 96 01/22/19 03:43 90 01/22/19 00:00 Room Air 01/22/19 00:00 97.9 96 20 153/88 (109) 98 01/21/19 21:00 98.4 72 20 135/69 (91) 96 01/21/19 20:00 Room Air 01/21/19 20:00 76 01/21/19 20:00 98.1 86 18 145/71 (95) 99 01/21/19 19:00 89 18 145/71 (95) 99 01/21/19 18:00 94 23 152/64 (93) 98 01/21/19 17:00 82 18 127/70 (89) 99 01/21/19 16:00 Room Air 01/21/19 16:00 98.0 75 23 127/56 (79) 98 01/21/19 16:00 71 01/21/19 15:00 73 17 96 01/21/19 14:00 74 17 132/69 (90) 98 I&O Intake and Output 01/21/19 01/22/19 19:00 07:00 Intake Total 1200.924 ml 1033.94065 ml Output Total 1575 ml 390 ml Balance -374.076 ml 643.65759 ml Intake Oral 540 ml IV Total 660.924 ml 1033.23577 ml Output Urine Total 1575 ml 390 ml Dressing: dry Wound: clean Cardiovascular: RSR Respiratory: clear Abdomen: soft, non-tender, present bowel sounds, non-distended Extremities: no tenderness, no cyanosis Laboratory Tests Test 01/22/19 00:45 01/22/19 04:00 01/22/19 07:45 01/22/19 09:00 Activated Partial Thromboplast Time 47 SEC (23-33) H > 150 SEC (23-33) *H White Blood Count 9.6 K/UL (4.8-10.8) Red Blood Count 3.69 M/UL (4.70-6.10) L Hemoglobin 10.9 G/DL (14.2-18.0) L Hematocrit 33.7 % (42.0-52.0) L Mean Corpuscular Volume 91 FL (80-99) Mean Corpuscular Hemoglobin 29.7 PG (27.0-31.0) Mean Corpuscular Hemoglobin Concent 32.5 G/DL (32.0-36.0) Red Cell Distribution Width 14.9 % (11.6-14.8) H Platelet Count 216 K/UL (150-450) Mean Platelet Volume 5.9 FL (6.5-10.1) L Neutrophils (%) (Auto) 80.9 % (45.0-75.0) H Lymphocytes (%) (Auto) 8.2 % (20.0-45.0) L Monocytes (%) (Auto) 9.4 % (1.0-10.0) Eosinophils (%) (Auto) 1.1 % (0.0-3.0) Basophils (%) (Auto) 0.4 % (0.0-2.0) Sodium Level 140 MMOL/L (136-145) Potassium Level 3.9 MMOL/L (3.5-5.1) Chloride Level 105 MMOL/L (98-107) Carbon Dioxide Level 26 MMOL/L (21-32) Anion Gap 9 mmol/L (5-15) Blood Urea Nitrogen 15 mg/dL (7-18) Creatinine 1.4 MG/DL (0.55-1.30) H Estimat Glomerular Filtration Rate mL/min (>60) Glucose Level 109 MG/DL (74-106) H Uric Acid 3.6 MG/DL (2.6-7.2) Calcium Level 8.7 MG/DL (8.5-10.1) Phosphorus Level 2.5 MG/DL (2.5-4.9) Magnesium Level 2.0 MG/DL (1.8-2.4) Total Bilirubin 0.5 MG/DL (0.2-1.0) Gamma Glutamyl Transpeptidase 12 U/L (5-85) Aspartate Amino Transf (AST/SGOT) 21 U/L (15-37) Alanine Aminotransferase (ALT/SGPT) 15 U/L (12-78) Alkaline Phosphatase 61 U/L (46-116) C-Reactive Protein, Quantitative 17.5 mg/dL (0.00-0.90) H Pro-B-Type Natriuretic Peptide 1404 pg/mL (0-125) H Total Protein 6.0 G/DL (6.4-8.2) L Albumin 1.9 G/DL (3.4-5.0) L Globulin 4.1 g/dL Albumin/Globulin Ratio 0.5 (1.0-2.7) L Urine Eosinophils None seen (NONE SEEN) Test 01/22/19 12:10 Activated Partial Thromboplast Time 67 SEC (23-33) H Plan Problems: (1) Decubitus skin ulcer Assessment & Plan: Pt presented on admission with DTPI sacrococcygeal (L)1.5cm x (W)0.8cm.Base of wound purple with maroon borders. Base of wound fluctuant centrally. Additional shearing noted periwound with scarring noted from previous wounds to sacrum,R and L buttocks. Both ischial areas noted to have darker than is normal skin tone without induration /erythema. Resolving pressure injury R heel. Thick callused cap noted with surrounding fluctuance and non-blanchable erythema (L)3.5cm x (W)3.5cm. Non-blanchable erythema without fluctuance or induration noted to L heel. Tx.Plan: Apply Moisture Barrier Paste to sacrococcygeal area. Cover with Optifoam drsg. Change every 3days and prn. Apply Moisture Barrier Paste to both ischail areas and scrotum with each incontinence care. Apply Cavilon Skin Barrier to Both heels. Cover each heel with Optifoam drsg. Change every 7 days and prn. APM/PHIL mattress. Reposition at least every 2hours or as tolerated. Off-load heels with Pillow. (2) Urinary tract infection (3) Renal insufficiency (4) Lung mass Assessment & Plan: No large vessel central pulmonary emboli. Questionable opacification of the right lower lobe branches, versus artifact due to motion, right lower lobe emboli not excludable 2.5 x 2.3 x 1.8 cm right apical masslike opacity with smaller adjacent similar smaller opacities. Favor scarring, but the possibility of neoplasm cannot be ruled out. Comparison with any prior exams and may be available would be useful Left hilar adenopathy. Atelectasis and consolidation of the posterior medial left lower lobe Evidence of old granulomatous disease in the left left greater than right hilar and mediastinal lymph nodes. Mildly distended esophagus, probably age-related, downstream obstructive process not completely excludable. Correlate with clinical findings Small pericardial effusion. Mild edema of the subcutaneous fat Extensive endplate irregularity at T12-L1, probably on the basis of advanced degenerative change. Possibility of infection not excludable, however, correlation with clinical findings is advised consideration for MRI as clinically indicated Left adrenal calcifications, may indicate old hemorrhage (5) Pulmonary embolism (6) Septic shock Assessment & Plan: DAILY ESTIMATED NEEDS: Needs based on Wound, sepsis 75kg 25-35 kcals/kg 7717-8645 total kcals 1.25-2 g protein/kg 94-150 g total protein 25-30ml/kcal mL/kg 8352-2750 total fluid mLs NUTRITION DIAGNOSIS: Increased kcal/ pro needs r/t wound healing as evidenced by BL heel wound, sacral unstageable wound. 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 - Advance as tolerated 10ml/hr q4-6 hrs to goal. - Flush per MD, HOB Over 30 degrees * FEED W/ HEMODYNAMIC STABILITY * ---- ADDITIONAL RECOMMENDATIONS: 1) Wound care: w/ oral diet add BRUCE BID + VIT C 250mg BID + MVI x1 daily 2) LAB NURSE eval for diet vs non oral feeds 3) Feed w/ hemodynamic stability 4) Monitor BG/ need for hypoglycemic agents 5) Calibrated bed scale wts (7) Altered mental status (8) Severe sepsis Tawanda Alfaro Jan 22, 2019 13:57
[2019-01-22] MEDS: D5 1/2NS 1,000 ML IV SCH (14:01)
[2019-01-22] MEDS ORDERED: Milk of Magnesia 30ml Ud ORAL PRN (14:15)
[2019-01-22] MEDS: Vancomycin 500mg/D5W 110ml IVPB SCH ×2 (15:09)
[2019-01-22 16:00] VITALS: BP 117/50
--- NOTE | 2019-01-22 18:45 | Progress Note ---
DATE: 01/22/2019 SUBJECTIVE: This is an elderly male, currently lying in bed, comfortable. No distress. He is slightly confused. No distress. OBJECTIVE: VITAL SIGNS: Blood pressure is 130/70, pulse 74, respirations 18. SKIN: Good skin turgor. HEENT: NAD. CHEST: Bilaterally clear. CARDIOVASCULAR: Regular rhythm. No gallop. No murmur. ABDOMEN: Soft. Positive bowel sounds. Nontender. EXTREMITIES: CCE. NEUROLOGICAL: The patient had generalized weakness. GENITOURINARY: Deferred. LABORATORY EXAMINATION: Labs are not available today. ASSESSMENT: 1. Sepsis. 2. PE. 3. History of hypertension. 4. Dementia. PLAN: We will currently continue oxygen, heparin drip . Pulmonary is on case. Continue IV antibiotics. Consider ID consult because his white counts still high. Discussed with Dr. Nicolas. Pedrito Mims M.D. DR: FORREST JOB#: [id number] CC:
[2019-01-22 20:00] VITALS: BP 125/50
[2019-01-22] MEDS: Dyna-Hex 2% Top Sol 2oz TOPIC SCH (20:55)
--- NOTE | 2019-01-22 23:31 | Hematology/Onc Progress Note ---
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 Favor scarring, but the possibility of neoplasm cannot be ruled out. 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, r/o mets --> at this time, patient is on pressors so hold off on diagnosis until more stable --> at some point will need a tissue diagnosis, as well as further w/u --> given advanced age, hold off on any extensive immediate care # Pulmonary embolism could be related to mass/malignacy --> currently remains on heparin gtt --> okay to transition to coumadin with inr goal 2-3 --> another option would be xarelto/eliquis as per pcp and pulm --> APTT 59--> 67 --> INR 1.1 (01/21) # Leukocytosis is 2/2 septic shock with uti --> has been started on abx --> further w/u for altered mental status --> as per ID care, abx --> wbc 9.7 #. Iron Overload --> Ferrtin 1327 continue to monitor consider chelation therapy prior to blood tx. # Urinary tract infection # Renal insufficiency --> as per renal recs # Respiratory failure is on nc/bipap --> per pulm # Hypotension is due to sepsis likely --> on pressors in the icu The timing of this note does not necessarily reflect the time of the patient was seen. GREATLY APPRECIATE CONSULTATION. Subjective Allergies: Coded Allergies: No Known Allergies (Unverified , 01/18/19) Subjective Subjective Subjective Allergies: Coded Allergies: No Known Allergies (Unverified , 01/18/19) Subjective 01/20: Off Levophed, remians in ICU and is confused, family primary caregivers and decison makers. 01/21: remains on Hep gtt, pt is non compliant with po meds, d/w RN. 01/22: h/h stable, APTT 67 Hep gtt per pharmacy protocol. Objective Objective Current Medications Medications (Trade) Dose Ordered Sig/Vaughn Route PRN Reason Start Time Stop Time Status Last Admin Dose Admin Acetaminophen (Tylenol) 650 mg Q4H PRN ORAL Mild Pain/Temp > 100.5 01/21/19 20:45 02/18/19 20:44 Ascorbic Acid (Vitamin C) 250 mg TWICE A DAY ORAL 01/22/19 09:00 02/19/19 17:59 01/22/19 17:26 Chlorhexidine Gluconate (Michelle-Hex 2%) 1 applic DAILY@2000 TOPIC 01/22/19 20:00 02/18/19 19:59 01/22/19 20:55 Dextrose/Sodium Chloride 1,000 ml @ 75 mls/hr [id number] IV 01/21/19 20:45 02/18/19 20:44 01/22/19 14:01 Divalproex Sodium (Depakote Sprinkles) 250 mg Q8HR ORAL 01/21/19 22:00 02/19/19 13:59 01/22/19 21:04 Docusate Sodium (Colace) 100 mg TID ORAL 01/22/19 09:00 02/19/19 08:59 01/22/19 17:26 Heparin Sodium/ Dextrose 500 ml @ 23.95 mls/ hr ADJUST PER PROTOCOL IV 01/22/19 02:00 02/20/19 20:44 01/22/19 03:09 Magnesium Hydroxide (Mom) 30 ml DAILYPRN PRN ORAL Constipation 01/22/19 14:15 02/18/19 14:14 Megestrol Acetate (Megace) 400 mg TWICE A DAY ORAL 01/22/19 09:00 02/20/19 17:59 01/22/19 17:25 Midodrine (Pro-Amatine) 2.5 mg THREE TIMES A DAY ORAL 01/22/19 09:00 02/19/19 13:44 01/22/19 17:26 Multivitamins (Multivitamins) 1 tab DAILY ORAL 01/22/19 09:00 02/20/19 08:59 01/22/19 09:50 Ondansetron HCl (Zofran) 4 mg Q6H PRN IV Nausea & Vomiting 01/21/19 20:45 02/20/19 20:44 Pantoprazole (Protonix) 40 mg EVERY 12 HOURS ORAL 01/21/19 21:00 02/19/19 20:59 01/22/19 09:50 Piperacillin Sod/ Tazobactam Sod 3.375 gm/Sodium Chloride 110 ml @ 27.5 mls/hr Q8HR IVPB 01/21/19 22:00 01/28/19 12:29 01/22/19 20:55 Temazepam (Restoril) 15 mg BEDTIME ORAL 01/21/19 21:00 01/26/19 20:59 01/22/19 20:55 Vancomycin HCl (Vanco rx to dose) 1 ea DAILY PRN MISC Per rx protocol 01/22/19 13:30 02/21/19 13:29 Vancomycin HCl 500 mg/Dextrose 110 ml @ 110 mls/hr Q12HR@0300,1500 IVPB 01/22/19 15:00 01/27/19 14:59 01/22/19 15:09 Last 24 Hour Vital Signs Date Time Temp Pulse Resp B/P (MAP) Pulse Ox O2 Delivery O2 Flow Rate FiO2 01/22/19 20:00 98.7 89 18 125/50 (75) 100 01/22/19 20:00 Room Air 01/22/19 19:35 125 01/22/19 16:00 Room Air 01/22/19 16:00 98.1 101 18 117/50 (72) 100 01/22/19 16:00 101 01/22/19 12:00 97.3 89 20 110/57 (74) 97 01/22/19 12:00 Room Air 01/22/19 11:36 96 01/22/19 08:07 Room Air 01/22/19 08:00 98.2 90 18 141/88 (105) 97 01/22/19 07:45 82 01/22/19 04:00 Room Air 01/22/19 04:00 97.6 91 20 132/70 (90) 96 01/22/19 03:43 90 01/22/19 00:00 Room Air 01/22/19 00:00 97.9 96 20 153/88 (109) 98 01/21/19 21:00 98.4 72 20 135/69 (91) 96 01/21/19 20:00 Room Air 01/21/19 20:00 76 01/21/19 20:00 98.1 86 18 145/71 (95) 99 01/21/19 19:00 89 18 145/71 (95) 99 01/21/19 18:00 94 23 152/64 (93) 98 01/21/19 17:00 82 18 127/70 (89) 99 01/21/19 16:00 Room Air 01/21/19 16:00 98.0 75 23 127/56 (79) 98 01/21/19 16:00 71 01/21/19 15:00 73 17 96 01/21/19 14:00 74 17 132/69 (90) 98 01/21/19 13:00 76 17 127/63 (84) 93 01/21/19 12:00 Room Air 01/21/19 12:00 79 17 125/51 (75) 99 01/21/19 12:00 76 01/21/19 11:00 80 16 150/53 (85) 99 01/21/19 10:00 83 17 129/60 (83) 98 01/21/19 09:00 91 17 132/75 (94) 100 01/21/19 08:00 98.3 72 14 98 01/21/19 08:00 72 01/21/19 08:00 Room Air 01/21/19 07:00 75 15 123/52 (75) 99 01/21/19 06:00 98.2 85 14 101/61 (74) 100 01/21/19 05:00 84 15 142/77 (98) 100 01/21/19 04:00 88 15 128/57 (80) 100 01/21/19 04:00 75 01/21/19 04:00 Room Air 01/21/19 03:00 81 15 129/63 (85) 99 01/21/19 02:00 77 18 133/61 (85) 99 01/21/19 01:00 82 18 133/61 (85) 99 01/21/19 00:00 Room Air 01/21/19 00:00 90 18 131/56 (81) 99 Intake and Output 01/21/19 01/22/19 19:00 07:00 Intake Total 1200.924 ml 1033.95698 ml Output Total 1575 ml 390 ml Balance -374.076 ml 643.25375 ml Intake Oral 540 ml IV Total 660.924 ml 1033.00620 ml Output Urine Total 1575 ml 390 ml Labs Test 01/19/19 23:40 01/20/19 05:00 01/20/19 06:50 01/20/19 15:00 Lactic Acid Level 3.40 mmol/L (0.66-2.22) 1.50 mmol/L (0.4-2.0) Urine Eosinophils None seen (NONE SEEN) White Blood Count 9.8 K/UL (4.8-10.8) Red Blood Count 3.65 M/UL (4.70-6.10) Hemoglobin 11.0 G/DL (14.2-18.0) Hematocrit 33.5 % (42.0-52.0) Mean Corpuscular Volume 92 FL (80-99) Mean Corpuscular Hemoglobin 30.3 PG (27.0-31.0) Mean Corpuscular Hemoglobin Concent 33.0 G/DL (32.0-36.0) Red Cell Distribution Width 14.8 % (11.6-14.8) Platelet Count 198 K/UL (150-450) Mean Platelet Volume 7.2 FL (6.5-10.1) Neutrophils (%) (Auto) 83.6 % (45.0-75.0) Lymphocytes (%) (Auto) 6.0 % (20.0-45.0) Monocytes (%) (Auto) 9.5 % (1.0-10.0) Eosinophils (%) (Auto) 0.5 % (0.0-3.0) Basophils (%) (Auto) 0.3 % (0.0-2.0) Activated Partial Thromboplast Time 103 SEC (23-33) 70 SEC (23-33) Sodium Level 140 MMOL/L (136-145) Potassium Level 3.8 MMOL/L (3.5-5.1) Chloride Level 105 MMOL/L (98-107) Carbon Dioxide Level 26 MMOL/L (21-32) Anion Gap 10 mmol/L (5-15) Blood Urea Nitrogen 29 mg/dL (7-18) Creatinine 2.0 MG/DL (0.55-1.30) Estimat Glomerular Filtration Rate mL/min (>60) Glucose Level 139 MG/DL (74-106) Hemoglobin A1c 6.0 % (4.3-6.0) Uric Acid 5.8 MG/DL (2.6-7.2) Calcium Level 8.6 MG/DL (8.5-10.1) Phosphorus Level 3.3 MG/DL (2.5-4.9) Magnesium Level 1.5 MG/DL (1.8-2.4) Iron Level 11 ug/dL (50-175) Total Iron Binding Capacity 113 ug/dL (250-450) Percent Iron Saturation 10 % (15-50) Unsaturated Iron Binding 102 ug/dL (112-346) Ferritin 1327 NG/ML (8-388) Total Bilirubin 0.4 MG/DL (0.2-1.0) Gamma Glutamyl Transpeptidase 14 U/L (5-85) Aspartate Amino Transf (AST/SGOT) 34 U/L (15-37) Alanine Aminotransferase (ALT/SGPT) 24 U/L (12-78) Alkaline Phosphatase 52 U/L (46-116) Ammonia < 10 umol/L (11-32) Total Creatine Kinase 188 U/L (26-308) Troponin I 0.041 ng/mL (0.000-0.056) C-Reactive Protein, Quantitative 27.0 mg/dL (0.00-0.90) Pro-B-Type Natriuretic Peptide 2311 pg/mL (0-125) Total Protein 6.1 G/DL (6.4-8.2) Albumin 2.0 G/DL (3.4-5.0) Globulin 4.1 g/dL Albumin/Globulin Ratio 0.5 (1.0-2.7) Triglycerides Level 38 MG/DL (30-150) Cholesterol Level 91 MG/DL (< 200) LDL Cholesterol 30 mg/dL (<100) HDL Cholesterol 37 MG/DL (40-60) Cholesterol/HDL Ratio 2.5 (3.3-4.4) Vitamin B12 Level 374 PG/ML (193-986) Folate 9.0 NG/ML (8.6-58.9) Thyroid Stimulating Hormone (TSH) 2.887 uiU/mL (0.358-3.740) Test 01/21/19 05:30 01/21/19 12:30 01/22/19 00:45 01/22/19 04:00 White Blood Count 9.7 K/UL (4.8-10.8) 9.6 K/UL (4.8-10.8) Red Blood Count 3.56 M/UL (4.70-6.10) 3.69 M/UL (4.70-6.10) Hemoglobin 10.8 G/DL (14.2-18.0) 10.9 G/DL (14.2-18.0) Hematocrit 32.3 % (42.0-52.0) 33.7 % (42.0-52.0) Mean Corpuscular Volume 91 FL (80-99) 91 FL (80-99) Mean Corpuscular Hemoglobin 30.3 PG (27.0-31.0) 29.7 PG (27.0-31.0) Mean Corpuscular Hemoglobin Concent 33.4 G/DL (32.0-36.0) 32.5 G/DL (32.0-36.0) Red Cell Distribution Width 14.7 % (11.6-14.8) 14.9 % (11.6-14.8) Platelet Count 191 K/UL (150-450) 216 K/UL (150-450) Mean Platelet Volume 6.5 FL (6.5-10.1) 5.9 FL (6.5-10.1) Neutrophils (%) (Auto) 79.1 % (45.0-75.0) 80.9 % (45.0-75.0) Lymphocytes (%) (Auto) 8.9 % (20.0-45.0) 8.2 % (20.0-45.0) Monocytes (%) (Auto) 10.2 % (1.0-10.0) 9.4 % (1.0-10.0) Eosinophils (%) (Auto) 1.5 % (0.0-3.0) 1.1 % (0.0-3.0) Basophils (%) (Auto) 0.4 % (0.0-2.0) 0.4 % (0.0-2.0) Erythrocyte Sedimentation Rate 91 MM/HR (0-20) Prothrombin Time 11.2 SEC (9.30-11.50) Prothromb Time International Ratio 1.1 (0.9-1.1) Activated Partial Thromboplast Time 59 SEC (23-33) 120 SEC (23-33) 47 SEC (23-33) Sodium Level 140 MMOL/L (136-145) 140 MMOL/L (136-145) Potassium Level 3.7 MMOL/L (3.5-5.1) 3.9 MMOL/L (3.5-5.1) Chloride Level 107 MMOL/L (98-107) 105 MMOL/L (98-107) Carbon Dioxide Level 25 MMOL/L (21-32) 26 MMOL/L (21-32) Anion Gap 8 mmol/L (5-15) 9 mmol/L (5-15) Blood Urea Nitrogen 22 mg/dL (7-18) 15 mg/dL (7-18) Creatinine 1.5 MG/DL (0.55-1.30) 1.4 MG/DL (0.55-1.30) Estimat Glomerular Filtration Rate mL/min (>60) mL/min (>60) Glucose Level 163 MG/DL (74-106) 109 MG/DL (74-106) Lactic Acid Level 1.40 mmol/L (0.4-2.0) Uric Acid 4.4 MG/DL (2.6-7.2) 3.6 MG/DL (2.6-7.2) Calcium Level 8.4 MG/DL (8.5-10.1) 8.7 MG/DL (8.5-10.1) Phosphorus Level 2.2 MG/DL (2.5-4.9) 2.5 MG/DL (2.5-4.9) Magnesium Level 2.3 MG/DL (1.8-2.4) 2.0 MG/DL (1.8-2.4) Total Bilirubin 0.4 MG/DL (0.2-1.0) 0.5 MG/DL (0.2-1.0) Aspartate Amino Transf (AST/SGOT) 22 U/L (15-37) 21 U/L (15-37) Alanine Aminotransferase (ALT/SGPT) 20 U/L (12-78) 15 U/L (12-78) Alkaline Phosphatase 50 U/L (46-116) 61 U/L (46-116) C-Reactive Protein, Quantitative 23.6 mg/dL (0.00-0.90) 17.5 mg/dL (0.00-0.90) Pro-B-Type Natriuretic Peptide 1326 pg/mL (0-125) 1404 pg/mL (0-125) Total Protein 5.7 G/DL (6.4-8.2) 6.0 G/DL (6.4-8.2) Albumin 1.8 G/DL (3.4-5.0) 1.9 G/DL (3.4-5.0) Globulin 3.9 g/dL 4.1 g/dL Albumin/Globulin Ratio 0.5 (1.0-2.7) 0.5 (1.0-2.7) Amylase Level 36 U/L (25-115) Lipase 43 U/L (73-393) Valproic Acid (Depakene) Level 20 MCG/ML (50-100) Gamma Glutamyl Transpeptidase 12 U/L (5-85) Test 01/22/19 07:45 01/22/19 09:00 01/22/19 12:10 Urine Eosinophils None seen (NONE SEEN) Activated Partial Thromboplast Time > 150 SEC (23-33) 67 SEC (23-33) Height (Feet): 5 Height (Inches): 9.00 Weight (Pounds): 168 Objective General: severe distress, chronically Ill ENT: moist mucus membranes Neck: limited range of motion, RIJ Respiratory: 02/ NC, no acute distress CTA Cardiovascular: RRr, no mgr Gastrointestinal: normal inspection, soft Musculoskeletal: normal inspection Neurologic: responsive, motor weakness Psychiatric: depressed affect, at times agitated. Skin: no rash : +Alma Farmer NP Jan 22, 2019 23:31
[2019-01-23] VITALS: BP 102/56
[2019-01-23] MEDS: D5 1/2NS 1,000 ML IV SCH ×2 (01:47→12:17)
[2019-01-23] MEDS: Heparin 25,000u/D5W 500ml 500 ML IV SCH ×4 (01:54→20:56)
--- NOTE | 2019-01-23 03:15 | Consultation ---
DATE OF CONSULTATION: 01/22/2019 INFECTIOUS DISEASES CONSULTATION This consult is for coverage of Dr. Lemon. CONSULTING PHYSICIAN: Isaac Martinez M.D. PRIMARY ATTENDING PHYSICIAN: Elmo Mims M.D. REASON FOR CONSULTATION: MRSA sepsis, UTI. HISTORY OF PRESENT ILLNESS: The patient is an 88-year-old male who is a [facility] resident admitted on 01/18/2019 with altered mental status. He was hypotensive, shortness of breath, acute renal failure, some mass or scarring in the lung, likely pulmonary embolism. The patient's blood culture at the time of admission is growing MRSA. Second set of blood culture from 01/21 also is becoming positive. PAST MEDICAL HISTORY: Dementia with behavioral problem, anemia, depression. ALLERGIES: No known drug allergies. MEDICATIONS: Getting vancomycin, magnesium hydroxide, vitamin D, multivitamin, heparin, Zosyn, Depakote, Protonix, Zofran. SOCIAL HISTORY: [facility] resident, has history of smoking cigar. No drug and alcohol abuse. Bedbound, has 4 children. 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 REVIEW OF SYSTEMS: Poor historian, has no complaint. Most of the history obtained from the daughter who is at bedside. PHYSICAL EXAMINATION: VITAL SIGNS: Temperature 97.3, pulse 89, blood pressure 110/57. No fever since admission. HEAD AND NECK: He has poor dentition. Slightly whitish tongue. Normal rate. LUNGS: Clear. ABDOMEN: Soft and nontender. EXTREMITIES: No edema. SKIN: Heel pressure ulcer. LABORATORY AND DIAGNOSTIC DATA: WBC 9.6, hemoglobin 10.9, hematocrit 33.7, and platelets is 216. Sodium 140, potassium 3.9, chloride 105, bicarbonate 26, BUN 15, creatinine 1.4. Creatinine at the admission was 4.2. Albumin is 1.9. UA showed WBC too numerous to count, rbc's too numerous to count, leukocyte esterase 3+. Blood culture x2 on 01/18/2019 was MRSA. Urine culture ESBL, Proteus. MRSA nasal screening is positive. VRE is positive in rectum. Blood culture 01/21/2019 Gram-positive cocci. CT angiogram of the chest showed no evidence of pulmonary emboli cannot be excluded 2.5 x 2.2 x 1.8 centimeter apical masslike opacity with adjacent smaller opacity, previous scarring, left hilar adenopathy, atelectasis and consolidation of lower lobe, , possibility of infection cannot be excluded, renal and hepatic cyst. IMPRESSION: 1. MRSA sepsis with persistent bacteremia. We will try to rule out endocarditis. 2. Proteus urinary tract infection. 3. Pneumonia in the lung, has lung mass or scarring. 4. Acute renal failure that is improving. 5. Anemia. 6. Questionable pulmonary embolism. RECOMMENDATION: We will continue with vancomycin and Zosyn. We will order echocardiogram. We will follow up the cultures. At the end of my exam, I thank Dr. Mims for involving me in the care of this patient. Also, we will consider an MRI of the spine to rule out vertebral osteomyelitis. Isaac Martinez M.D. DR: Mady JOB#: [id number] CC: KYLEE
[2019-01-23] MEDS: Vancomycin 500mg/D5W 110ml IVPB SCH ×4 (03:28→14:15)
[2019-01-23 04:00] VITALS: BP 118/69
[2019-01-23] MEDS ORDERED: Heparin 5000 units/ml inj IV SCH (04:45)
[2019-01-23] MEDS: Depakote 125mg Sprinkles ORAL SCH ×3 (05:04→21:19)
[2019-01-23] MEDS: Piperacillin/Tazobactam 3.375 GM in NS 110 ML IVPB SCH ×3 (05:05→21:20)
[2019-01-23 08:00] VITALS: BP 110/53
[2019-01-23] MEDS: Docusate 100mg cap ORAL SCH ×3 (08:43→17:12)
[2019-01-23] MEDS: Ascorbic Acid 500mg tab ORAL SCH ×2 (08:43→17:17)
[2019-01-23] MEDS: Megace 400mg/10ml Susp ORAL SCH ×2 (08:43→17:16)
[2019-01-23 12:00] VITALS: BP 114/60
--- NOTE | 2019-01-23 12:33 | Nephrology Progress Note ---
Assessment/Plan Problem List: (1) Septic shock (2) Renal insufficiency (3) Urinary tract infection (4) Lung mass (5) Decubitus skin ulcer Assessment Acute renal failure resolving Shock / Sepsis Acute Encephalopathy Lung mass UTI Decubitus sacral Plan Megace PO for apetite mag IV as needed Fluids- down on rate Off Pressors Midodrine Monitor renal parameters St eval Jose surveillance BC Per orders per consultants Subjective ROS Limited/Unobtainable: No Constitutional: Reports: malaise Objective Objective Last 24 Hour Vital Signs Date Time Temp Pulse Resp B/P (MAP) Pulse Ox O2 Delivery O2 Flow Rate FiO2 01/23/19 12:00 Room Air 01/23/19 08:00 99 01/23/19 08:00 98.1 99 20 110/53 (72) 98 01/23/19 08:00 Room Air 01/23/19 07:58 131 01/23/19 07:23 99 Room Air 01/23/19 04:00 98 01/23/19 04:00 Room Air 01/23/19 04:00 98.0 100 18 118/69 (85) 98 01/23/19 00:00 97.9 101 18 102/56 (71) 100 01/23/19 00:00 Room Air 01/22/19 23:42 133 01/22/19 20:00 98.7 89 18 125/50 (75) 100 01/22/19 20:00 Room Air 01/22/19 19:35 125 01/22/19 16:00 Room Air 01/22/19 16:00 98.1 101 18 117/50 (72) 100 01/22/19 16:00 101 Intake and Output 01/22/19 01/23/19 19:00 07:00 Intake Total 1601.60 ml 1666.436 ml Output Total 1200 ml 750 ml Balance 401.60 ml 916.436 ml Intake Oral 960 ml 250 ml IV Total 641.60 ml 1416.436 ml Output Urine Total 1200 ml 750 ml Laboratory Tests 01/23/19 04:00: Activated Partial Thromboplast Time 63H, Troponin I 0.024, Thyroid Stimulating Hormone (TSH) 4.705H, Free Thyroxine 1.34 01/23/19 11:15: Activated Partial Thromboplast Time 82H Height (Feet): 5 Height (Inches): 9.00 Weight (Pounds): 168 General Appearance: no apparent distress Cardiovascular: tachycardia Respiratory/Chest: decreased breath sounds Abdomen: distended Objective no change Rubén Nicolas MD Jan 23, 2019 12:33
--- NOTE | 2019-01-23 14:02 | Hematology/Onc Progress Note ---
Assessment/Plan Assessment/Plan IMAGING: CTA imaging 01/19/19 Impression: No large vessel central pulmonary emboli. Questionable opacification of the right lower lobe branches, versus artifact due to motion, right lower lobe emboli not excludable 2.5 x 2.3 x 1.8 cm right apical masslike opacity with smaller adjacent similar smaller opacities. Favor scarring, but the possibility of neoplasm cannot be ruled out. Comparison with any prior exams and may be available would be useful Left hilar adenopathy. Atelectasis and consolidation of the posterior medial left lower lobe. Evidence of old granulomatous disease in the left left greater than right hilar and mediastinal lymph nodes. Mildly distended esophagus, probably age-related, downstream obstructive process notcompletely excludable. Correlate with clinical findings Small pericardial effusion. Mild edema of the subcutaneous fat Assessment and Recs: # Lung mass (2.5 x 2.3 x 1.8 cm right apical masslike opacity) with smaller adjacent similar smaller opacities. Favor scarring, but the possibility of neoplasm cannot be ruled out. 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, r/o mets --> at this time, patient is on pressors so hold off on diagnosis until more stable --> at some point will need a tissue diagnosis, as well as further w/u --> given advanced age, hold off on any extensive immediate care # Pulmonary embolism could be related to mass/malignacy --> currently remains on heparin gtt --> okay to transition to coumadin with inr goal 2-3 --> another option would be xarelto/eliquis as per pcp and pulm --> APTT 59--> 67 --> INR 1.1 (01/21) # Leukocytosis is 2/2 septic shock with uti --> has been started on abx --> further w/u for altered mental status --> as per ID care, abx --> wbc 9.7 #. Iron Overload --> Ferrtin 1327 continue to monitor consider chelation therapy prior to blood tx. # Urinary tract infection --> on Vanco # Renal insufficiency --> as per renal recs # Respiratory failure is on nc/bipap --> per pulm # Hypotension is due to sepsis likely --> on pressors in the icu The timing of this note does not necessarily reflect the time of the patient was seen. GREATLY APPRECIATE CONSULTATION. Subjective Allergies: Coded Allergies: No Known Allergies (Unverified , 01/18/19) Subjective Subjective Subjective 01/20: Off Levophed, remians in ICU and is confused, family primary caregivers and decison makers. 01/21: remains on Hep gtt, pt is non compliant with po meds, d/w RN. 01/22: h/h stable, APTT 67 Hep gtt per pharmacy protocol. 01/23:pt in and out of SVT this morning, cardio consulted, no bleeding reported. Objective Objective Current Medications Medications (Trade) Dose Ordered Sig/Vaughn Route PRN Reason Start Time Stop Time Status Last Admin Dose Admin Acetaminophen (Tylenol) 650 mg Q4H PRN ORAL Mild Pain/Temp > 100.5 01/21/19 20:45 02/18/19 20:44 Ascorbic Acid (Vitamin C) 250 mg TWICE A DAY ORAL 01/22/19 09:00 02/19/19 17:59 01/23/19 08:43 Chlorhexidine Gluconate (Michelle-Hex 2%) 1 applic DAILY@2000 TOPIC 01/22/19 20:00 02/18/19 19:59 01/22/19 20:55 Dextrose/Sodium Chloride 1,000 ml @ 75 mls/hr [id number] IV 01/21/19 20:45 02/18/19 20:44 01/23/19 12:17 Divalproex Sodium (Depakote Sprinkles) 250 mg Q8HR ORAL 01/21/19 22:00 02/19/19 13:59 01/23/19 05:04 Docusate Sodium (Colace) 100 mg TID ORAL 01/22/19 09:00 02/19/19 08:59 01/22/19 17:26 Heparin Sodium/ Dextrose 500 ml @ 26.943 mls/ hr ADJUST PER PROTOCOL IV 01/23/19 04:45 02/20/19 20:44 01/23/19 12:19 Magnesium Hydroxide (Mom) 30 ml DAILYPRN PRN ORAL Constipation 01/22/19 14:15 02/18/19 14:14 Megestrol Acetate (Megace) 400 mg TWICE A DAY ORAL 01/22/19 09:00 02/20/19 17:59 01/23/19 08:43 Midodrine (Pro-Amatine) 2.5 mg THREE TIMES A DAY ORAL 01/22/19 09:00 02/19/19 13:44 01/23/19 08:45 Multivitamins (Multivitamins) 1 tab DAILY ORAL 01/22/19 09:00 02/20/19 08:59 01/23/19 08:43 Ondansetron HCl (Zofran) 4 mg Q6H PRN IV Nausea & Vomiting 01/21/19 20:45 02/20/19 20:44 Pantoprazole (Protonix) 40 mg EVERY 12 HOURS ORAL 01/21/19 21:00 02/19/19 20:59 01/23/19 08:43 Piperacillin Sod/ Tazobactam Sod 3.375 gm/Sodium Chloride 110 ml @ 27.5 mls/hr Q8HR IVPB 01/21/19 22:00 01/28/19 12:29 01/23/19 05:05 Temazepam (Restoril) 15 mg BEDTIME ORAL 01/21/19 21:00 01/26/19 20:59 01/22/19 20:55 Vancomycin HCl (Vanco rx to dose) 1 ea DAILY PRN MISC Per rx protocol 01/22/19 13:30 02/21/19 13:29 Vancomycin HCl 500 mg/Dextrose 110 ml @ 110 mls/hr Q12HR@0300,1500 IVPB 01/22/19 15:00 01/27/19 14:59 01/23/19 03:28 Last 24 Hour Vital Signs Date Time Temp Pulse Resp B/P (MAP) Pulse Ox O2 Delivery O2 Flow Rate FiO2 01/23/19 12:00 83 01/23/19 12:00 Room Air 01/23/19 12:00 97.9 94 20 114/60 (78) 97 01/23/19 08:00 99 01/23/19 08:00 98.1 99 20 110/53 (72) 98 01/23/19 08:00 Room Air 01/23/19 07:58 131 01/23/19 07:23 99 Room Air 01/23/19 04:00 98 01/23/19 04:00 Room Air 01/23/19 04:00 98.0 100 18 118/69 (85) 98 01/23/19 00:00 97.9 101 18 102/56 (71) 100 01/23/19 00:00 Room Air 01/22/19 23:42 133 01/22/19 20:00 98.7 89 18 125/50 (75) 100 01/22/19 20:00 Room Air 01/22/19 19:35 125 01/22/19 16:00 Room Air 01/22/19 16:00 98.1 101 18 117/50 (72) 100 01/22/19 16:00 101 01/22/19 12:00 97.3 89 20 110/57 (74) 97 01/22/19 12:00 Room Air 01/22/19 11:36 96 01/22/19 08:07 Room Air 01/22/19 08:00 98.2 90 18 141/88 (105) 97 01/22/19 07:45 82 01/22/19 04:00 Room Air 01/22/19 04:00 97.6 91 20 132/70 (90) 96 01/22/19 03:43 90 01/22/19 00:00 Room Air 01/22/19 00:00 97.9 96 20 153/88 (109) 98 01/21/19 21:00 98.4 72 20 135/69 (91) 96 01/21/19 20:00 Room Air 01/21/19 20:00 76 01/21/19 20:00 98.1 86 18 145/71 (95) 99 01/21/19 19:00 89 18 145/71 (95) 99 01/21/19 18:00 94 23 152/64 (93) 98 01/21/19 17:00 82 18 127/70 (89) 99 01/21/19 16:00 Room Air 01/21/19 16:00 98.0 75 23 127/56 (79) 98 01/21/19 16:00 71 01/21/19 15:00 73 17 96 Intake and Output 01/22/19 01/23/19 19:00 07:00 Intake Total 1601.60 ml 1666.436 ml Output Total 1200 ml 750 ml Balance 401.60 ml 916.436 ml Intake Oral 960 ml 250 ml IV Total 641.60 ml 1416.436 ml Output Urine Total 1200 ml 750 ml Labs Test 01/20/19 15:00 01/21/19 05:30 01/21/19 12:30 01/22/19 00:45 Activated Partial Thromboplast Time 70 SEC (23-33) 59 SEC (23-33) 120 SEC (23-33) 47 SEC (23-33) White Blood Count 9.7 K/UL (4.8-10.8) Red Blood Count 3.56 M/UL (4.70-6.10) Hemoglobin 10.8 G/DL (14.2-18.0) Hematocrit 32.3 % (42.0-52.0) Mean Corpuscular Volume 91 FL (80-99) Mean Corpuscular Hemoglobin 30.3 PG (27.0-31.0) Mean Corpuscular Hemoglobin Concent 33.4 G/DL (32.0-36.0) Red Cell Distribution Width 14.7 % (11.6-14.8) Platelet Count 191 K/UL (150-450) Mean Platelet Volume 6.5 FL (6.5-10.1) Neutrophils (%) (Auto) 79.1 % (45.0-75.0) Lymphocytes (%) (Auto) 8.9 % (20.0-45.0) Monocytes (%) (Auto) 10.2 % (1.0-10.0) Eosinophils (%) (Auto) 1.5 % (0.0-3.0) Basophils (%) (Auto) 0.4 % (0.0-2.0) Erythrocyte Sedimentation Rate 91 MM/HR (0-20) Prothrombin Time 11.2 SEC (9.30-11.50) Prothromb Time International Ratio 1.1 (0.9-1.1) Sodium Level 140 MMOL/L (136-145) Potassium Level 3.7 MMOL/L (3.5-5.1) Chloride Level 107 MMOL/L (98-107) Carbon Dioxide Level 25 MMOL/L (21-32) Anion Gap 8 mmol/L (5-15) Blood Urea Nitrogen 22 mg/dL (7-18) Creatinine 1.5 MG/DL (0.55-1.30) Estimat Glomerular Filtration Rate mL/min (>60) Glucose Level 163 MG/DL (74-106) Lactic Acid Level 1.40 mmol/L (0.4-2.0) Uric Acid 4.4 MG/DL (2.6-7.2) Calcium Level 8.4 MG/DL (8.5-10.1) Phosphorus Level 2.2 MG/DL (2.5-4.9) Magnesium Level 2.3 MG/DL (1.8-2.4) Total Bilirubin 0.4 MG/DL (0.2-1.0) Aspartate Amino Transf (AST/SGOT) 22 U/L (15-37) Alanine Aminotransferase (ALT/SGPT) 20 U/L (12-78) Alkaline Phosphatase 50 U/L (46-116) C-Reactive Protein, Quantitative 23.6 mg/dL (0.00-0.90) Pro-B-Type Natriuretic Peptide 1326 pg/mL (0-125) Total Protein 5.7 G/DL (6.4-8.2) Albumin 1.8 G/DL (3.4-5.0) Globulin 3.9 g/dL Albumin/Globulin Ratio 0.5 (1.0-2.7) Amylase Level 36 U/L (25-115) Lipase 43 U/L (73-393) Valproic Acid (Depakene) Level 20 MCG/ML (50-100) Test 01/22/19 04:00 01/22/19 07:45 01/22/19 09:00 01/22/19 12:10 White Blood Count 9.6 K/UL (4.8-10.8) Red Blood Count 3.69 M/UL (4.70-6.10) Hemoglobin 10.9 G/DL (14.2-18.0) Hematocrit 33.7 % (42.0-52.0) Mean Corpuscular Volume 91 FL (80-99) Mean Corpuscular Hemoglobin 29.7 PG (27.0-31.0) Mean Corpuscular Hemoglobin Concent 32.5 G/DL (32.0-36.0) Red Cell Distribution Width 14.9 % (11.6-14.8) Platelet Count 216 K/UL (150-450) Mean Platelet Volume 5.9 FL (6.5-10.1) Neutrophils (%) (Auto) 80.9 % (45.0-75.0) Lymphocytes (%) (Auto) 8.2 % (20.0-45.0) Monocytes (%) (Auto) 9.4 % (1.0-10.0) Eosinophils (%) (Auto) 1.1 % (0.0-3.0) Basophils (%) (Auto) 0.4 % (0.0-2.0) Sodium Level 140 MMOL/L (136-145) Potassium Level 3.9 MMOL/L (3.5-5.1) Chloride Level 105 MMOL/L (98-107) Carbon Dioxide Level 26 MMOL/L (21-32) Anion Gap 9 mmol/L (5-15) Blood Urea Nitrogen 15 mg/dL (7-18) Creatinine 1.4 MG/DL (0.55-1.30) Estimat Glomerular Filtration Rate mL/min (>60) Glucose Level 109 MG/DL (74-106) Uric Acid 3.6 MG/DL (2.6-7.2) Calcium Level 8.7 MG/DL (8.5-10.1) Phosphorus Level 2.5 MG/DL (2.5-4.9) Magnesium Level 2.0 MG/DL (1.8-2.4) Total Bilirubin 0.5 MG/DL (0.2-1.0) Gamma Glutamyl Transpeptidase 12 U/L (5-85) Aspartate Amino Transf (AST/SGOT) 21 U/L (15-37) Alanine Aminotransferase (ALT/SGPT) 15 U/L (12-78) Alkaline Phosphatase 61 U/L (46-116) C-Reactive Protein, Quantitative 17.5 mg/dL (0.00-0.90) Pro-B-Type Natriuretic Peptide 1404 pg/mL (0-125) Total Protein 6.0 G/DL (6.4-8.2) Albumin 1.9 G/DL (3.4-5.0) Globulin 4.1 g/dL Albumin/Globulin Ratio 0.5 (1.0-2.7) Urine Eosinophils None seen (NONE SEEN) Activated Partial Thromboplast Time > 150 SEC (23-33) 67 SEC (23-33) Test 01/23/19 04:00 01/23/19 11:15 Activated Partial Thromboplast Time 63 SEC (23-33) 82 SEC (23-33) Troponin I 0.024 ng/mL (0.000-0.056) Thyroid Stimulating Hormone (TSH) 4.705 uiU/mL (0.358-3.740) Free Thyroxine 1.34 NG/DL (0.76-1.46) Height (Feet): 5 Height (Inches): 9.00 Weight (Pounds): 168 Objective General: chronically Ill appearing. ENT: moist mucus membranes Neck: limited range of motion, RIJ Respiratory: 02/ NC, no acute distress CTA Cardiovascular: RRr, no mgr Gastrointestinal: normal inspection, soft Musculoskeletal: normal inspection Neurologic: responsive, motor weakness Psychiatric: depressed affect, at times agitated. Skin: no rash : +Jake Nieves MD Jan 23, 2019 14:02
--- NOTE | 2019-01-23 15:10 | Surgery Progress Note ---
Surgery Progress Note Subjective Additional Comments no acute events. resting comfortable. no complaints. no n/v/f/c. labs noted Objective Last 24 Hour Vital Signs Date Time Temp Pulse Resp B/P (MAP) Pulse Ox O2 Delivery O2 Flow Rate FiO2 01/23/19 12:00 83 01/23/19 12:00 Room Air 01/23/19 12:00 97.9 94 20 114/60 (78) 97 01/23/19 08:00 99 01/23/19 08:00 98.1 99 20 110/53 (72) 98 01/23/19 08:00 Room Air 01/23/19 07:58 131 01/23/19 07:23 99 Room Air 01/23/19 04:00 98 01/23/19 04:00 Room Air 01/23/19 04:00 98.0 100 18 118/69 (85) 98 01/23/19 00:00 97.9 101 18 102/56 (71) 100 01/23/19 00:00 Room Air 01/22/19 23:42 133 01/22/19 20:00 98.7 89 18 125/50 (75) 100 01/22/19 20:00 Room Air 01/22/19 19:35 125 01/22/19 16:00 Room Air 01/22/19 16:00 98.1 101 18 117/50 (72) 100 01/22/19 16:00 101 I&O Intake and Output 01/22/19 01/23/19 19:00 07:00 Intake Total 1601.60 ml 1666.436 ml Output Total 1200 ml 750 ml Balance 401.60 ml 916.436 ml Intake Oral 960 ml 250 ml IV Total 641.60 ml 1416.436 ml Output Urine Total 1200 ml 750 ml Dressing: dry Wound: clean Cardiovascular: RSR Respiratory: clear Abdomen: soft, non-tender, present bowel sounds, non-distended Extremities: no tenderness, no cyanosis, other Laboratory Tests Test 01/23/19 04:00 01/23/19 11:15 Activated Partial Thromboplast Time 63 SEC (23-33) H 82 SEC (23-33) H Troponin I 0.024 ng/mL (0.000-0.056) Thyroid Stimulating Hormone (TSH) 4.705 uiU/mL (0.358-3.740) Free Thyroxine 1.34 NG/DL (0.76-1.46) Plan Problems: (1) Decubitus skin ulcer Assessment & Plan: Pt presented on admission with DTPI sacrococcygeal (L)1.5cm x (W)0.8cm.Base of wound purple with maroon borders. Base of wound fluctuant centrally. Additional shearing noted periwound with scarring noted from previous wounds to sacrum,R and L buttocks. Both ischial areas noted to have darker than is normal skin tone without induration /erythema. Resolving pressure injury R heel. Thick callused cap noted with surrounding fluctuance and non-blanchable erythema (L)3.5cm x (W)3.5cm. Non-blanchable erythema without fluctuance or induration noted to L heel. Tx.Plan: Apply Moisture Barrier Paste to sacrococcygeal area. Cover with Optifoam drsg. Change every 3days and prn. Apply Moisture Barrier Paste to both ischail areas and scrotum with each incontinence care. Apply Cavilon Skin Barrier to Both heels. Cover each heel with Optifoam drsg. Change every 7 days and prn. APM/PHIL mattress. Reposition at least every 2hours or as tolerated. Off-load heels with Pillow. (2) Urinary tract infection (3) Renal insufficiency (4) Lung mass Assessment & Plan: No large vessel central pulmonary emboli. Questionable opacification of the right lower lobe branches, versus artifact due to motion, right lower lobe emboli not excludable 2.5 x 2.3 x 1.8 cm right apical masslike opacity with smaller adjacent similar smaller opacities. Favor scarring, but the possibility of neoplasm cannot be ruled out. Comparison with any prior exams and may be available would be useful Left hilar adenopathy. Atelectasis and consolidation of the posterior medial left lower lobe Evidence of old granulomatous disease in the left left greater than right hilar and mediastinal lymph nodes. Mildly distended esophagus, probably age-related, downstream obstructive process not completely excludable. Correlate with clinical findings Small pericardial effusion. Mild edema of the subcutaneous fat Extensive endplate irregularity at T12-L1, probably on the basis of advanced degenerative change. Possibility of infection not excludable, however, correlation with clinical findings is advised consideration for MRI as clinically indicated Left adrenal calcifications, may indicate old hemorrhage (5) Pulmonary embolism (6) Septic shock Assessment & Plan: DAILY ESTIMATED NEEDS: Needs based on Wound, sepsis 75kg 25-35 kcals/kg 9682-1465 total kcals 1.25-2 g protein/kg 94-150 g total protein 25-30ml/kcal mL/kg 7047-5151 total fluid mLs NUTRITION DIAGNOSIS: Increased kcal/ pro needs r/t wound healing as evidenced by BL heel wound, sacral unstageable wound. CURRENT DIET: NPO PO DIET RECOMMENDATIONS: As able-> LOW NA DIET (texture per PATTERN PERFORATING MACHINE OPERATOR/ on puree + NTL FORM SETTER HELPER) ENTERAL NUTRITION RECOMMENDATIONS: NGT if part of POC-> Glucerna 1.5 @55ml/hr x24 hrs to provide 1320ml, 1980 kcal, 109g pro, 1002ml free H2O - If part of POC, obtain GI access, start Glucerna 1.5 @25ml/hr for 6 hrs. - Advance as tolerated 10ml/hr q4-6 hrs to goal. - Flush per MD, HOB Over 30 degrees * FEED W/ HEMODYNAMIC STABILITY * ---- ADDITIONAL RECOMMENDATIONS: 1) Wound care: w/ oral diet add RBUCE BID + VIT C 250mg BID + MVI x1 daily 2) PATTERN PERFORATING MACHINE OPERATOR eval for diet vs non oral feeds 3) Feed w/ hemodynamic stability 4) Monitor BG/ need for hypoglycemic agents 5) Calibrated bed scale wts (7) Altered mental status (8) Severe sepsis Tawanda Alfaro Jan 23, 2019 15:10
[2019-01-23 16:00] VITALS: BP 105/61
--- NOTE | 2019-01-23 16:36 | Cardiac Electrophysiology PN ---
Subjective Subjective [id number] Objective Last 24 Hour Vital Signs Date Time Temp Pulse Resp B/P (MAP) Pulse Ox O2 Delivery O2 Flow Rate FiO2 01/23/19 16:00 97.8 87 20 105/61 (76) 97 01/23/19 16:00 Room Air 01/23/19 12:00 83 01/23/19 12:00 Room Air 01/23/19 12:00 97.9 94 20 114/60 (78) 97 01/23/19 08:00 99 01/23/19 08:00 98.1 99 20 110/53 (72) 98 01/23/19 08:00 Room Air 01/23/19 07:58 131 01/23/19 07:23 99 Room Air 01/23/19 04:00 98 01/23/19 04:00 Room Air 01/23/19 04:00 98.0 100 18 118/69 (85) 98 01/23/19 00:00 97.9 101 18 102/56 (71) 100 01/23/19 00:00 Room Air 01/22/19 23:42 133 01/22/19 20:00 98.7 89 18 125/50 (75) 100 01/22/19 20:00 Room Air 01/22/19 19:35 125 Intake and Output 01/22/19 01/23/19 19:00 07:00 Intake Total 1601.60 ml 1666.436 ml Output Total 1200 ml 750 ml Balance 401.60 ml 916.436 ml Intake Oral 960 ml 250 ml IV Total 641.60 ml 1416.436 ml Output Urine Total 1200 ml 750 ml Laboratory Tests Test 01/23/19 04:00 01/23/19 11:15 Activated Partial Thromboplast Time 63 SEC (23-33) H 82 SEC (23-33) H Troponin I 0.024 ng/mL (0.000-0.056) Thyroid Stimulating Hormone (TSH) 4.705 uiU/mL (0.358-3.740) Free Thyroxine 1.34 NG/DL (0.76-1.46) Microbiology Date/Time Source Procedure Growth Status 01/21/19 11:25 Blood Blood Culture - Preliminary Staphylococcus Aureus Resulted 01/21/19 11:15 Blood Blood Culture - Preliminary Staphylococcus Aureus Resulted 01/22/19 07:45 Indwelling Cath Urine Culture - Preliminary NO GROWTH AFTER 24 HOURS Resulted Christian Vargas MD Jan 23, 2019 16:36
[2019-01-23 20:00] VITALS: BP 102/71
[2019-01-23] MEDS: Dyna-Hex 2% Top Sol 2oz TOPIC SCH (20:10)
--- NOTE | 2019-01-23 20:45 | Progress Note ---
DATE: 01/23/2019 SUBJECTIVE: This is an elderly male, sitting in the bed, confused, and doing fine. He was found with atrial fibrillation with rapid ventricular rate. Cardiology consult was obtained. His heart rate is improving. OBJECTIVE: VITAL SIGNS: Blood pressure is 130/70, pulse 74, respirations 18. SKIN: Good skin turgor. HEENT: NAD. CHEST: Bilaterally clear. CARDIOVASCULAR: Regular rhythm. No gallop. No murmur. ABDOMEN: Soft. Positive bowel sounds. Nontender. EXTREMITIES: CCE. NEUROLOGICAL: The patient had generalized weakness. GENITOURINARY: Deferred. LABORATORY EXAMINATION: Not available. ASSESSMENT: Atrial fibrillation with rapid ventricular rate. PLAN: Consider Cardiology consult. Continue beta-iftikhar and continue current treatment. Continue anticoagulation. Pedrito Mims M.D. DR: MIKEL JOB#: [id number] CC:
[2019-01-24] VITALS: BP 100/52
--- NOTE | 2019-01-24 01:30 | Progress Note ---
DATE: 01/23/2019 SUBJECTIVE: The patient is in bed, confused and disoriented, more agitated towards night, sundowning. He has a poor memory. MENTAL STATUS EXAMINATION: Alert, confused, and disoriented. Mood is anxious. Affect is constricted. Congruent with mood. Thought process is concrete. There is a paucity of thought content. Thought content, no suicidal or homicidal ideations. Memory is impaired. ASSESSMENT: Schizophrenia. PLAN: 1. We will continue the Zyprexa 5 mg at bedtime. 2. Provide the patient with reality orientation and supportive therapy. Beatriz Lawson M.D. DR: TRISTON JOB#: [id number] CC:
[2019-01-24] MEDS: D5 1/2NS 1,000 ML IV SCH (02:41)
--- NOTE | 2019-01-24 03:30 | Consultation ---
DATE OF CONSULTATION: 01/23/2019 CARDIOLOGY CONSULTATION CONSULTING PHYSICIAN: Christian Vargas M.D. REFERRING PHYSICIAN: Pedrito Mims M.D. REASON FOR CONSULTATION: Wide complex tachycardia. HISTORY OF PRESENT ILLNESS: The patient is an 88-year-old gentleman who is a resident of longterm, was admitted on January 18, 2019 with altered mental status. The patient was noted to be in septic shock, was initially in the intensive care unit. The patient was also in acute renal failure. The patient subsequently was diagnosed with acute pulmonary embolism, started on heparin drip. The patient's blood culture on admission also grew MRSA. Second set of blood cultures were also positive. 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 Cardiac electrophysiology consultation was obtained for further evaluation and management. At the time of my evaluation, the patient is alert. Denies any chest pain or shortness of breath. REVIEW OF SYSTEMS: Review of systems was negative other than what was mentioned in history of present illness. PAST MEDICAL HISTORY: As mentioned above. FAMILY HISTORY: Noncontributory. SOCIAL HISTORY: He lives in longterm, bedbound, does not smoke or drink alcohol. He works in a [employer]. MEDICATIONS: Per reconciliation. PHYSICAL EXAMINATION: VITAL SIGNS: Show blood pressure of 104/61, pulse is 87, . HEAD AND NECK: Mild JVD. LUNGS: Decreased breath sounds. CARDIOVASCULAR: Regular S1 and S2. Mildly tachycardic. ABDOMEN: Soft and nontender. EXTREMITIES: No pitting edema. LABORATORY AND DIAGNOSTIC DATA: Chest CT angio in the ED showed no large vessel central pulmonary emboli even though right lower embolus is not excludable. The patient also had a 2.5 x 2.3 x 1.8 centimeter apical masslike lesion, possibility cannot be excluded. LABORATORY AND DIAGNOSTIC DATA: His labs show white count of 9.7, hematocrit 10.9, hematocrit 33.7, and platelet count 216. Sodium is 140, potassium 3.9, BUN of 15, creatinine 1.4, glucose of 109. Troponin is negative. BNP is 1404. Echocardiogram show ejection fraction of 65%. ASSESSMENT/PLAN: 1. Tachycardia. 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 Heart rate is improved. This is likely secondary the patient's underlying sepsis. The patient is already on antibiotics. 2. Pulmonary embolism, on heparin drip. 3. Lung mass. Further evaluation by Dr. Alfaro. 4. Urinary tract infection. 5. Decubitus skin ulcer. 6. MRSA blood cultures on echocardiogram. The patient is on IV vancomycin. 7. Hypotension, on midodrine 2.5 mg three times daily. Thank you very much Dr. Mims for allowing me to participate in the care of this patient. Please do not hesitate to contact me for any questions regarding my evaluation. Sincerely, Christian Vargas M.D. DR: Duke JOB#: [id number] CC:
[2019-01-24 04:00] VITALS: BP 106/64
[2019-01-24] MEDS ORDERED: Vancomycin 750mg/NS 275ml IVPB SCH ×2 (04:00)
[2019-01-24 04:59] LABS: BASOPHILS % (AUTO) 0.3 % (0.0-2.0); EOSINOPHILS % (AUTO) 1.5 % (0.0-3.0); HEMATOCRIT 28.9 % (42.0-52.0); HEMOGLOBIN 9.6 G/DL (14.2-18.0); LYMPHOCYTES % (AUTO) 17.3 % (20.0-45.0); MEAN CORPUSCULAR VOLUME 90 FL (80-99); NEUTROPHILS % (AUTO) 71.8 % (45.0-75.0); PLATELET COUNT 219 K/UL (150-450); RED BLOOD COUNT 3.22 M/UL (4.70-6.10); RED CELL DISTRIBUTION WIDTH 14.6 % (11.6-14.8)
[2019-01-24 05:24] LABS: ALANINE AMINOTRANSFERASE 11 U/L (12-78); ALBUMIN 1.4 G/DL (3.4-5.0); ALBUMIN/GLOBULIN RATIO 0.4 (1.0-2.7); ALKALINE PHOSPHATASE 43 U/L (46-116); ANION GAP 8 mmol/L (5-15); ASPARTATE AMINO TRANSFERASE 34 U/L (15-37); BILIRUBIN,TOTAL 0.3 MG/DL (0.2-1.0); BLOOD UREA NITROGEN 10 mg/dL (7-18); CALCIUM 8.3 MG/DL (8.5-10.1); CARBON DIOXIDE 24 MMOL/L (21-32); CHLORIDE 106 MMOL/L (98-107); CREATININE 1.3 MG/DL (0.55-1.30); PHOSPHORUS 2.2 MG/DL (2.5-4.9); POTASSIUM 3.3 MMOL/L (3.5-5.1); SODIUM 138 MMOL/L (136-145)
[2019-01-24] MEDS: Depakote 125mg Sprinkles ORAL SCH (05:38)
[2019-01-24] MEDS: Piperacillin/Tazobactam 3.375 GM in NS 110 ML IVPB SCH (05:39)
[2019-01-24 08:00] VITALS: BP 114/62
[2019-01-24] MEDS: Megace 400mg/10ml Susp ORAL SCH (08:24)
[2019-01-24] MEDS: Docusate 100mg cap ORAL SCH ×2 (08:25→13:00)
[2019-01-24] MEDS: Ascorbic Acid 500mg tab ORAL SCH (08:25)
--- NOTE | 2019-01-24 10:54 | Infectious Diseases Prog Note ---
Assessment/Plan Assessment/Plan antibiotics : vancomycin iv, zosyn A 1. MRSA sepsis 2. proteus UTI 3. pneumonia 4. renal failure improving P 1. continue iv vancomycin, zosyn 2. will follow up cultures 3. echo pending Subjective ROS Limited/Unobtainable: Yes Allergies: Coded Allergies: No Known Allergies (Unverified , 01/18/19) Objective Vital Signs Last 24 Hour Vital Signs Date Time Temp Pulse Resp B/P (MAP) Pulse Ox O2 Delivery O2 Flow Rate FiO2 01/24/19 08:00 98.1 94 17 114/62 (79) 97 01/24/19 08:00 71 01/24/19 08:00 Room Air 01/24/19 04:00 90 01/24/19 04:00 99.0 132 20 106/64 (78) 95 01/24/19 04:00 Room Air 01/24/19 00:00 136 01/24/19 00:00 Room Air 01/24/19 00:00 99.0 130 20 100/52 (68) 97 01/23/19 20:00 133 01/23/19 20:00 Room Air 01/23/19 20:00 99.0 130 20 102/71 (81) 97 01/23/19 16:00 97.8 87 20 105/61 (76) 97 01/23/19 16:00 133 01/23/19 16:00 Room Air 01/23/19 12:00 83 01/23/19 12:00 Room Air 01/23/19 12:00 97.9 94 20 114/60 (78) 97 Height (Feet): 5 Height (Inches): 9.00 Weight (Pounds): 170 Respiratory/Chest: lungs clear Cardiovascular: normal rate, regular rhythm, no gallop/murmur Abdomen: soft, non tender Extremities: no edema, other - right IJ catheter Microbiology Date/Time Source Procedure Growth Status 01/21/19 11:25 Blood Blood Culture - Final Staphylococcus Aureus - Mrsa Complete 01/21/19 11:15 Blood Blood Culture - Final Staphylococcus Aureus - Mrsa Complete 01/22/19 07:45 Indwelling Cath Urine Culture - Final NO GROWTH AFTER 48 HOURS Complete Laboratory Tests Test 01/23/19 11:15 01/24/19 02:05 01/24/19 04:00 Activated Partial Thromboplast Time 82 SEC (23-33) H 76 SEC (23-33) H Vancomycin Level Trough 10.2 ug/mL (5.0-12.0) White Blood Count 11.0 K/UL (4.8-10.8) H Red Blood Count 3.22 M/UL (4.70-6.10) L Hemoglobin 9.6 G/DL (14.2-18.0) L Hematocrit 28.9 % (42.0-52.0) L Mean Corpuscular Volume 90 FL (80-99) Mean Corpuscular Hemoglobin 29.6 PG (27.0-31.0) Mean Corpuscular Hemoglobin Concent 33.1 G/DL (32.0-36.0) Red Cell Distribution Width 14.6 % (11.6-14.8) Platelet Count 219 K/UL (150-450) Mean Platelet Volume 5.7 FL (6.5-10.1) L Neutrophils (%) (Auto) 71.8 % (45.0-75.0) Lymphocytes (%) (Auto) 17.3 % (20.0-45.0) L Monocytes (%) (Auto) 9.0 % (1.0-10.0) Eosinophils (%) (Auto) 1.5 % (0.0-3.0) Basophils (%) (Auto) 0.3 % (0.0-2.0) Sodium Level 138 MMOL/L (136-145) Potassium Level 3.3 MMOL/L (3.5-5.1) L Chloride Level 106 MMOL/L (98-107) Carbon Dioxide Level 24 MMOL/L (21-32) Anion Gap 8 mmol/L (5-15) Blood Urea Nitrogen 10 mg/dL (7-18) Creatinine 1.3 MG/DL (0.55-1.30) Estimat Glomerular Filtration Rate mL/min (>60) Glucose Level 130 MG/DL (74-106) H Uric Acid 3.7 MG/DL (2.6-7.2) Calcium Level 8.3 MG/DL (8.5-10.1) L Phosphorus Level 2.2 MG/DL (2.5-4.9) L Magnesium Level 1.6 MG/DL (1.8-2.4) L Total Bilirubin 0.3 MG/DL (0.2-1.0) Aspartate Amino Transf (AST/SGOT) 34 U/L (15-37) Alanine Aminotransferase (ALT/SGPT) 11 U/L (12-78) L Alkaline Phosphatase 43 U/L (46-116) L C-Reactive Protein, Quantitative 11.8 mg/dL (0.00-0.90) H Total Protein 4.9 G/DL (6.4-8.2) L Albumin 1.4 G/DL (3.4-5.0) L Globulin 3.5 g/dL Albumin/Globulin Ratio 0.4 (1.0-2.7) L Current Medications Medications (Trade) Dose Ordered Sig/Vaughn Route PRN Reason Start Time Stop Time Status Last Admin Dose Admin Acetaminophen (Tylenol) 650 mg Q4H PRN ORAL Mild Pain/Temp > 100.5 01/21/19 20:45 02/18/19 20:44 Ascorbic Acid (Vitamin C) 250 mg TWICE A DAY ORAL 01/22/19 09:00 02/19/19 17:59 01/24/19 08:25 Chlorhexidine Gluconate (Michelle-Hex 2%) 1 applic DAILY@2000 TOPIC 01/22/19 20:00 02/18/19 19:59 01/23/19 20:10 Dextrose/Sodium Chloride 1,000 ml @ 75 mls/hr [id number] IV 01/21/19 20:45 02/18/19 20:44 01/24/19 02:41 Divalproex Sodium (Depakote Sprinkles) 250 mg Q8HR ORAL 01/21/19 22:00 02/19/19 13:59 01/24/19 05:38 Docusate Sodium (Colace) 100 mg TID ORAL 01/22/19 09:00 02/19/19 08:59 01/24/19 08:25 Heparin Sodium/ Dextrose 500 ml @ 26.943 mls/ hr ADJUST PER PROTOCOL IV 01/23/19 04:45 02/20/19 20:44 01/23/19 20:56 Magnesium Hydroxide (Mom) 30 ml DAILYPRN PRN ORAL Constipation 01/22/19 14:15 02/18/19 14:14 Magnesium Sulfate 100 ml @ 100 mls/hr Q1H IVPB 01/24/19 10:30 01/24/19 14:29 01/24/19 10:05 Megestrol Acetate (Megace) 400 mg TWICE A DAY ORAL 01/22/19 09:00 02/20/19 17:59 01/24/19 08:24 Midodrine (Pro-Amatine) 10 mg THREE TIMES A DAY ORAL 01/23/19 18:00 02/19/19 13:44 01/24/19 08:24 Multivitamins (Multivitamins) 1 tab DAILY ORAL 01/22/19 09:00 02/20/19 08:59 01/24/19 08:24 Ondansetron HCl (Zofran) 4 mg Q6H PRN IV Nausea & Vomiting 01/21/19 20:45 02/20/19 20:44 Pantoprazole (Protonix) 40 mg EVERY 12 HOURS ORAL 01/21/19 21:00 02/19/19 20:59 01/24/19 08:24 Piperacillin Sod/ Tazobactam Sod 3.375 gm/Sodium Chloride 110 ml @ 27.5 mls/hr Q8HR IVPB 01/21/19 22:00 01/28/19 12:29 01/24/19 05:39 Potassium Phosphate 30 mm/ Sodium Chloride 285 ml @ 47.5 mls/hr ONCE ONCE IV 01/24/19 11:00 01/24/19 16:59 Temazepam (Restoril) 15 mg BEDTIME ORAL 01/21/19 21:00 01/26/19 20:59 01/23/19 21:19 Vancomycin HCl (Vanco rx to dose) 1 ea DAILY PRN MISC Per rx protocol 01/22/19 13:30 02/21/19 13:29 Vancomycin HCl 750 mg/Sodium Chloride 275 ml @ 183.333 mls/hr Q12H IVPB 01/24/19 04:00 01/29/19 03:59 01/24/19 04:04 Ambrocio Lemon MD Jan 24, 2019 10:54
[2019-01-24] MEDS ORDERED: Potassium Phosphate 30 MM in NS 275 ML IV ONE (11:00)
[2019-01-24 12:00] VITALS: BP 128/58
[2019-01-24] MEDS ORDERED: PRO-AMATINE10 MG ORAL (13:04)
[2019-01-24] MEDS ORDERED: XARELTO15 MG ORAL (13:04)
[2019-01-24] MEDS ORDERED: Xarelto 15mg tab ORAL SCH (14:00)
--- NOTE | 2019-01-24 14:19 | Surgery Progress Note ---
Surgery Progress Note Subjective Additional Comments a fib wide complex. seen by cards. input noted. MRSA bacteremia on IV Abx exam stable. wbc 11k Objective Last 24 Hour Vital Signs Date Time Temp Pulse Resp B/P (MAP) Pulse Ox O2 Delivery O2 Flow Rate FiO2 01/24/19 12:00 69 01/24/19 12:00 Room Air 01/24/19 12:00 97.8 71 17 128/58 (81) 100 01/24/19 08:00 98.1 94 17 114/62 (79) 97 01/24/19 08:00 71 01/24/19 08:00 Room Air 01/24/19 04:00 90 01/24/19 04:00 99.0 132 20 106/64 (78) 95 01/24/19 04:00 Room Air 01/24/19 00:00 136 01/24/19 00:00 Room Air 01/24/19 00:00 99.0 130 20 100/52 (68) 97 01/23/19 20:00 133 01/23/19 20:00 Room Air 01/23/19 20:00 99.0 130 20 102/71 (81) 97 01/23/19 16:00 97.8 87 20 105/61 (76) 97 01/23/19 16:00 133 01/23/19 16:00 Room Air I&O Intake and Output 01/23/19 01/24/19 19:00 07:00 Intake Total 597.487 ml 1831.606 ml Output Total 1000 ml Balance 597.487 ml 831.606 ml Intake Oral 120 ml IV Total 597.487 ml 1711.606 ml Output Urine Total 1000 ml # Bowel Movements 2 Dressing: dry Wound: clean Drains: other Cardiovascular: RSR Respiratory: decreased breath sounds Abdomen: soft, present bowel sounds, non-distended Extremities: no tenderness, no cyanosis Laboratory Tests Test 01/24/19 02:05 01/24/19 04:00 Vancomycin Level Trough 10.2 ug/mL (5.0-12.0) White Blood Count 11.0 K/UL (4.8-10.8) H Red Blood Count 3.22 M/UL (4.70-6.10) L Hemoglobin 9.6 G/DL (14.2-18.0) L Hematocrit 28.9 % (42.0-52.0) L Mean Corpuscular Volume 90 FL (80-99) Mean Corpuscular Hemoglobin 29.6 PG (27.0-31.0) Mean Corpuscular Hemoglobin Concent 33.1 G/DL (32.0-36.0) Red Cell Distribution Width 14.6 % (11.6-14.8) Platelet Count 219 K/UL (150-450) Mean Platelet Volume 5.7 FL (6.5-10.1) L Neutrophils (%) (Auto) 71.8 % (45.0-75.0) Lymphocytes (%) (Auto) 17.3 % (20.0-45.0) L Monocytes (%) (Auto) 9.0 % (1.0-10.0) Eosinophils (%) (Auto) 1.5 % (0.0-3.0) Basophils (%) (Auto) 0.3 % (0.0-2.0) Activated Partial Thromboplast Time 76 SEC (23-33) H Sodium Level 138 MMOL/L (136-145) Potassium Level 3.3 MMOL/L (3.5-5.1) L Chloride Level 106 MMOL/L (98-107) Carbon Dioxide Level 24 MMOL/L (21-32) Anion Gap 8 mmol/L (5-15) Blood Urea Nitrogen 10 mg/dL (7-18) Creatinine 1.3 MG/DL (0.55-1.30) Estimat Glomerular Filtration Rate mL/min (>60) Glucose Level 130 MG/DL (74-106) H Uric Acid 3.7 MG/DL (2.6-7.2) Calcium Level 8.3 MG/DL (8.5-10.1) L Phosphorus Level 2.2 MG/DL (2.5-4.9) L Magnesium Level 1.6 MG/DL (1.8-2.4) L Total Bilirubin 0.3 MG/DL (0.2-1.0) Aspartate Amino Transf (AST/SGOT) 34 U/L (15-37) Alanine Aminotransferase (ALT/SGPT) 11 U/L (12-78) L Alkaline Phosphatase 43 U/L (46-116) L C-Reactive Protein, Quantitative 11.8 mg/dL (0.00-0.90) H Total Protein 4.9 G/DL (6.4-8.2) L Albumin 1.4 G/DL (3.4-5.0) L Globulin 3.5 g/dL Albumin/Globulin Ratio 0.4 (1.0-2.7) L Plan Problems: (1) Decubitus skin ulcer Assessment & Plan: Pt presented on admission with DTPI sacrococcygeal (L)1.5cm x (W)0.8cm.Base of wound purple with maroon borders. Base of wound fluctuant centrally. Additional shearing noted periwound with scarring noted from previous wounds to sacrum,R and L buttocks. Both ischial areas noted to have darker than is normal skin tone without induration /erythema. Resolving pressure injury R heel. Thick callused cap noted with surrounding fluctuance and non-blanchable erythema (L)3.5cm x (W)3.5cm. Non-blanchable erythema without fluctuance or induration noted to L heel. Tx.Plan: Apply Moisture Barrier Paste to sacrococcygeal area. Cover with Optifoam drsg. Change every 3days and prn. Apply Moisture Barrier Paste to both ischail areas and scrotum with each incontinence care. Apply Cavilon Skin Barrier to Both heels. Cover each heel with Optifoam drsg. Change every 7 days and prn. APM/PHIL mattress. Reposition at least every 2hours or as tolerated. Off-load heels with Pillow. (2) Urinary tract infection (3) Renal insufficiency (4) Lung mass Assessment & Plan: No large vessel central pulmonary emboli. Questionable opacification of the right lower lobe branches, versus artifact due to motion, right lower lobe emboli not excludable 2.5 x 2.3 x 1.8 cm right apical masslike opacity with smaller adjacent similar smaller opacities. Favor scarring, but the possibility of neoplasm cannot be ruled out. Comparison with any prior exams and may be available would be useful Left hilar adenopathy. Atelectasis and consolidation of the posterior medial left lower lobe Evidence of old granulomatous disease in the left left greater than right hilar and mediastinal lymph nodes. Mildly distended esophagus, probably age-related, downstream obstructive process not completely excludable. Correlate with clinical findings Small pericardial effusion. Mild edema of the subcutaneous fat Extensive endplate irregularity at T12-L1, probably on the basis of advanced degenerative change. Possibility of infection not excludable, however, correlation with clinical findings is advised consideration for MRI as clinically indicated Left adrenal calcifications, may indicate old hemorrhage (5) Pulmonary embolism (6) Septic shock Assessment & Plan: DAILY ESTIMATED NEEDS: Needs based on Wound, sepsis 75kg 25-35 kcals/kg 8880-5743 total kcals 1.25-2 g protein/kg 94-150 g total protein 25-30ml/kcal mL/kg 8298-1822 total fluid mLs NUTRITION DIAGNOSIS: Increased kcal/ pro needs r/t wound healing as evidenced by BL heel wound, sacral unstageable wound. CURRENT DIET: NPO PO DIET RECOMMENDATIONS: As able-> LOW NA DIET (texture per PERIOPERATIVE TECH/ on puree + NTL APARTMENT LOCATOR) ENTERAL NUTRITION RECOMMENDATIONS: NGT if part of POC-> Glucerna 1.5 @55ml/hr x24 hrs to provide 1320ml, 1980 kcal, 109g pro, 1002ml free H2O - If part of POC, obtain GI access, start Glucerna 1.5 @25ml/hr for 6 hrs. - Advance as tolerated 10ml/hr q4-6 hrs to goal. - Flush per MD, HOB Over 30 degrees * FEED W/ HEMODYNAMIC STABILITY * ---- ADDITIONAL RECOMMENDATIONS: 1) Wound care: w/ oral diet add BRUCE BID + VIT C 250mg BID + MVI x1 daily 2) PERIOPERATIVE TECH eval for diet vs non oral feeds 3) Feed w/ hemodynamic stability 4) Monitor BG/ need for hypoglycemic agents 5) Calibrated bed scale wts (7) Altered mental status (8) Severe sepsis Assessment & Plan: MRSA bacteremia cont IV Abx Tawanda Alfaro Jan 24, 2019 14:19
--- NOTE | 2019-01-24 15:31 | Nephrology Progress Note ---
Assessment/Plan Problem List: (1) Septic shock (2) Renal insufficiency (3) Urinary tract infection (4) Lung mass (5) Decubitus skin ulcer Assessment Acute renal failure resolving Shock / Sepsis Acute Encephalopathy Lung mass UTI Decubitus sacral Plan Megace PO for apetite mag IV as needed Fluids- down on rate Off Pressors Midodrine Monitor renal parameters St eval Jose surveillance BC Per orders per consultants Subjective ROS Limited/Unobtainable: Yes Objective Objective Last 24 Hour Vital Signs Date Time Temp Pulse Resp B/P (MAP) Pulse Ox O2 Delivery O2 Flow Rate FiO2 01/24/19 12:00 69 01/24/19 12:00 Room Air 01/24/19 12:00 97.8 71 17 128/58 (81) 100 01/24/19 08:00 98.1 94 17 114/62 (79) 97 01/24/19 08:00 71 01/24/19 08:00 Room Air 01/24/19 04:00 90 01/24/19 04:00 99.0 132 20 106/64 (78) 95 01/24/19 04:00 Room Air 01/24/19 00:00 136 01/24/19 00:00 Room Air 01/24/19 00:00 99.0 130 20 100/52 (68) 97 01/23/19 20:00 133 01/23/19 20:00 Room Air 01/23/19 20:00 99.0 130 20 102/71 (81) 97 01/23/19 16:00 97.8 87 20 105/61 (76) 97 01/23/19 16:00 133 01/23/19 16:00 Room Air Intake and Output 01/23/19 01/24/19 19:00 07:00 Intake Total 597.487 ml 1831.606 ml Output Total 1000 ml Balance 597.487 ml 831.606 ml Intake Oral 120 ml IV Total 597.487 ml 1711.606 ml Output Urine Total 1000 ml # Bowel Movements 2 Laboratory Tests 01/24/19 02:05: Vancomycin Level Trough 10.2 01/24/19 04:00: White Blood Count 11.0H, Red Blood Count 3.22L, Hemoglobin 9.6L, Hematocrit 28.9L, Mean Corpuscular Volume 90, Mean Corpuscular Hemoglobin 29.6, Mean Corpuscular Hemoglobin Concent 33.1, Red Cell Distribution Width 14.6, Platelet Count 219, Mean Platelet Volume 5.7L, Neutrophils (%) (Auto) 71.8, Lymphocytes ( %) (Auto) 17.3L, Monocytes (%) (Auto) 9.0, Eosinophils (%) (Auto) 1.5, Basophils (%) (Auto) 0.3, Activated Partial Thromboplast Time 76H, Sodium Level 138, Potassium Level 3.3L, Chloride Level 106, Carbon Dioxide Level 24, Anion Gap 8, Blood Urea Nitrogen 10, Creatinine 1.3, Estimat Glomerular Filtration Rate , Glucose Level 130H, Uric Acid 3.7, Calcium Level 8.3L, Phosphorus Level 2.2L, Magnesium Level 1.6L, Total Bilirubin 0.3, Aspartate Amino Transf (AST/ SGOT) 34, Alanine Aminotransferase (ALT/SGPT) 11L, Alkaline Phosphatase 43L, C- Reactive Protein, Quantitative 11.8H, Total Protein 4.9L, Albumin 1.4L, Globulin 3.5, Albumin/Globulin Ratio 0.4L Height (Feet): 5 Height (Inches): 9.00 Weight (Pounds): 170 General Appearance: no apparent distress Cardiovascular: normal rate Respiratory/Chest: decreased breath sounds Abdomen: soft Objective no change Rubén Nicolas MD Jan 24, 2019 15:31
[2019-01-24] MEDS ORDERED: D5 1/2NS 1000ml IV ONE (15:52)
[2019-01-24] MEDS ORDERED: NS 275ml ONE ×2 (15:52)
[2019-01-24] MEDS ORDERED: Tubing IV Secondary IV ONE (15:52)
--- NOTE | 2019-01-24 16:06 | Cardiology Report ---
APPROVED REPORT EKG Measurement Heart [id number] Wide QRS tachycardia Right bundle branch block Left anterior fascicular block Bifascicular block Abnormal ECG
--- NOTE | 2019-01-24 20:21 | Hematology/Onc Progress Note ---
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 Favor scarring, but the possibility of neoplasm cannot be ruled out. 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 Iron Overload --> Ferrtin 1327 continue to monitor consider chelation therapy prior to blood tx. --> on iv iron # Urinary tract infection --> on Vanco # Renal insufficiency --> as per renal recs # Respiratory failure is on nc/bipap --> per pulm # Hypotension is due to sepsis likely --> on pressors in the icu The timing of this note does not necessarily reflect the time of the patient was seen. GREATLY APPRECIATE CONSULTATION. Subjective Cardiovascular: Denies: no symptoms, chest pain, edema, irregular heart rate, lightheadedness, palpitations, syncope, other Respiratory: Denies: no symptoms, cough, shortness of breath, SOB with excertion, SOB at rest, sputum, wheezing, other Gastrointestinal/Abdominal: Denies: no symptoms, abdomen distended, abdominal pain, black stools, tarry stools, blood in stool, constipated, diarrhea, difficulty swallowing, nausea, poor appetite, poor fluid intake, rectal bleeding , vomiting, other Genitourinary: Denies: no symptoms, burning, discharge, frequency, flank pain, hematuria, incontinence, pain, urgency, other Neurologic/Psychiatric: Denies: no symptoms, anxiety, depressed, emotional problems, headache, numbness, paresthesia, pre-existing deficit, seizure, tingling, tremors, weakness, other Endocrine: Denies: no symptoms, excessive sweating, flushing, intolerance to cold, intolerance to heat, increased hunger, increased thirst, increased urine, unexplained weight gain, unexplained weight loss, other Hematologic/Lymphatic: Denies: no symptoms, anemia, easy bleeding, easy bruising, adenopathy, other Allergies: Coded Allergies: No Known Allergies (Unverified , 01/18/19) Subjective Subjective Subjective 01/20: Off Levophed, remians in ICU and is confused, family primary caregivers and decison makers. 01/21: remains on Hep gtt, pt is non compliant with po meds, d/w RN. 01/22: h/h stable, APTT 67 Hep gtt per pharmacy protocol. 01/23:pt in and out of SVT this morning, cardio consulted, no bleeding reported. 01/24: feeling better, less nauseous to be dc today to snf Objective Objective Last 24 Hour Vital Signs Date Time Temp Pulse Resp B/P (MAP) Pulse Ox O2 Delivery O2 Flow Rate FiO2 01/24/19 12:00 69 01/24/19 12:00 Room Air 01/24/19 12:00 97.8 71 17 128/58 (81) 100 01/24/19 08:00 98.1 94 17 114/62 (79) 97 01/24/19 08:00 71 01/24/19 08:00 Room Air 01/24/19 04:00 90 01/24/19 04:00 99.0 132 20 106/64 (78) 95 01/24/19 04:00 Room Air 01/24/19 00:00 136 01/24/19 00:00 Room Air 01/24/19 00:00 99.0 130 20 100/52 (68) 97 01/23/19 20:00 133 01/23/19 20:00 Room Air 01/23/19 20:00 99.0 130 20 102/71 (81) 97 01/23/19 16:00 97.8 87 20 105/61 (76) 97 01/23/19 16:00 133 01/23/19 16:00 Room Air 01/23/19 12:00 83 01/23/19 12:00 Room Air 01/23/19 12:00 97.9 94 20 114/60 (78) 97 01/23/19 08:00 99 01/23/19 08:00 98.1 99 20 110/53 (72) 98 01/23/19 08:00 Room Air 01/23/19 07:58 131 01/23/19 07:23 99 Room Air 01/23/19 04:00 98 01/23/19 04:00 Room Air 01/23/19 04:00 98.0 100 18 118/69 (85) 98 01/23/19 00:00 97.9 101 18 102/56 (71) 100 01/23/19 00:00 Room Air 01/22/19 23:42 133 Intake and Output 01/23/19 01/24/19 19:00 07:00 Intake Total 597.487 ml 1831.606 ml Output Total 1000 ml Balance 597.487 ml 831.606 ml Intake Oral 120 ml IV Total 597.487 ml 1711.606 ml Output Urine Total 1000 ml # Bowel Movements 2 Labs Test 01/22/19 00:45 01/22/19 04:00 01/22/19 07:45 01/22/19 09:00 Activated Partial Thromboplast Time 47 SEC (23-33) > 150 SEC (23-33) White Blood Count 9.6 K/UL (4.8-10.8) Red Blood Count 3.69 M/UL (4.70-6.10) Hemoglobin 10.9 G/DL (14.2-18.0) Hematocrit 33.7 % (42.0-52.0) Mean Corpuscular Volume 91 FL (80-99) Mean Corpuscular Hemoglobin 29.7 PG (27.0-31.0) Mean Corpuscular Hemoglobin Concent 32.5 G/DL (32.0-36.0) Red Cell Distribution Width 14.9 % (11.6-14.8) Platelet Count 216 K/UL (150-450) Mean Platelet Volume 5.9 FL (6.5-10.1) Neutrophils (%) (Auto) 80.9 % (45.0-75.0) Lymphocytes (%) (Auto) 8.2 % (20.0-45.0) Monocytes (%) (Auto) 9.4 % (1.0-10.0) Eosinophils (%) (Auto) 1.1 % (0.0-3.0) Basophils (%) (Auto) 0.4 % (0.0-2.0) Sodium Level 140 MMOL/L (136-145) Potassium Level 3.9 MMOL/L (3.5-5.1) Chloride Level 105 MMOL/L (98-107) Carbon Dioxide Level 26 MMOL/L (21-32) Anion Gap 9 mmol/L (5-15) Blood Urea Nitrogen 15 mg/dL (7-18) Creatinine 1.4 MG/DL (0.55-1.30) Estimat Glomerular Filtration Rate mL/min (>60) Glucose Level 109 MG/DL (74-106) Uric Acid 3.6 MG/DL (2.6-7.2) Calcium Level 8.7 MG/DL (8.5-10.1) Phosphorus Level 2.5 MG/DL (2.5-4.9) Magnesium Level 2.0 MG/DL (1.8-2.4) Total Bilirubin 0.5 MG/DL (0.2-1.0) Gamma Glutamyl Transpeptidase 12 U/L (5-85) Aspartate Amino Transf (AST/SGOT) 21 U/L (15-37) Alanine Aminotransferase (ALT/SGPT) 15 U/L (12-78) Alkaline Phosphatase 61 U/L (46-116) C-Reactive Protein, Quantitative 17.5 mg/dL (0.00-0.90) Pro-B-Type Natriuretic Peptide 1404 pg/mL (0-125) Total Protein 6.0 G/DL (6.4-8.2) Albumin 1.9 G/DL (3.4-5.0) Globulin 4.1 g/dL Albumin/Globulin Ratio 0.5 (1.0-2.7) Urine Eosinophils None seen (NONE SEEN) Test 01/22/19 12:10 01/23/19 04:00 01/23/19 11:15 01/24/19 02:05 Activated Partial Thromboplast Time 67 SEC (23-33) 63 SEC (23-33) 82 SEC (23-33) Troponin I 0.024 ng/mL (0.000-0.056) Thyroid Stimulating Hormone (TSH) 4.705 uiU/mL (0.358-3.740) Free Thyroxine 1.34 NG/DL (0.76-1.46) Vancomycin Level Trough 10.2 ug/mL (5.0-12.0) Test 01/24/19 04:00 White Blood Count 11.0 K/UL (4.8-10.8) Red Blood Count 3.22 M/UL (4.70-6.10) Hemoglobin 9.6 G/DL (14.2-18.0) Hematocrit 28.9 % (42.0-52.0) Mean Corpuscular Volume 90 FL (80-99) Mean Corpuscular Hemoglobin 29.6 PG (27.0-31.0) Mean Corpuscular Hemoglobin Concent 33.1 G/DL (32.0-36.0) Red Cell Distribution Width 14.6 % (11.6-14.8) Platelet Count 219 K/UL (150-450) Mean Platelet Volume 5.7 FL (6.5-10.1) Neutrophils (%) (Auto) 71.8 % (45.0-75.0) Lymphocytes (%) (Auto) 17.3 % (20.0-45.0) Monocytes (%) (Auto) 9.0 % (1.0-10.0) Eosinophils (%) (Auto) 1.5 % (0.0-3.0) Basophils (%) (Auto) 0.3 % (0.0-2.0) Activated Partial Thromboplast Time 76 SEC (23-33) Sodium Level 138 MMOL/L (136-145) Potassium Level 3.3 MMOL/L (3.5-5.1) Chloride Level 106 MMOL/L (98-107) Carbon Dioxide Level 24 MMOL/L (21-32) Anion Gap 8 mmol/L (5-15) Blood Urea Nitrogen 10 mg/dL (7-18) Creatinine 1.3 MG/DL (0.55-1.30) Estimat Glomerular Filtration Rate mL/min (>60) Glucose Level 130 MG/DL (74-106) Uric Acid 3.7 MG/DL (2.6-7.2) Calcium Level 8.3 MG/DL (8.5-10.1) Phosphorus Level 2.2 MG/DL (2.5-4.9) Magnesium Level 1.6 MG/DL (1.8-2.4) Total Bilirubin 0.3 MG/DL (0.2-1.0) Aspartate Amino Transf (AST/SGOT) 34 U/L (15-37) Alanine Aminotransferase (ALT/SGPT) 11 U/L (12-78) Alkaline Phosphatase 43 U/L (46-116) C-Reactive Protein, Quantitative 11.8 mg/dL (0.00-0.90) Total Protein 4.9 G/DL (6.4-8.2) Albumin 1.4 G/DL (3.4-5.0) Globulin 3.5 g/dL Albumin/Globulin Ratio 0.4 (1.0-2.7) Height (Feet): 5 Height (Inches): 9.00 Weight (Pounds): 170 Objective General: chronically Ill appearing. ENT: moist mucus membranes Neck: limited range of motion, RIJ Respiratory: 02/ NC, no acute distress CTA Cardiovascular: RRr, no mgr Gastrointestinal: normal inspection, soft Musculoskeletal: normal inspection Neurologic: responsive, motor weakness Psychiatric: depressed affect, at times agitated. Skin: no rash : +Jake Nieves MD Jan 24, 2019 20:21
--- NOTE | 2019-01-25 02:30 | Progress Note ---
DATE: 01/24/2019 SUBJECTIVE: The patient is confused, disoriented anxiety and agitation consciousness, memory impairment. MENTAL STATUS EXAMINATION: The patient is confused, disoriented. Mood is anxious. Affect is flat. Thought process, there is a paucity of thought content. Thought content, no suicidal or homicidal ideation. ASSESSMENT: Dementia with behavior disturbance. PLAN: Continue current medications. Provide the patient with reality orientation and supportive therapy. Beatriz Lawson M.D. DR: JOSHUA JOB#: [id number] CC:
--- NOTE | 2019-01-25 16:19 | Discharge Summary ---
Discharge Summary Discharge Summary _ DATE OF ADMISSION: 01/18/2019 DATE OF DISCHARGE: 01/24/2019 DISCHARGED BY: Dr. Mims REASON FOR ADMISSION: 88 years old male with past medical history of encephalopathy, dementia, seizure disorder, schizophrenia, hypertension, peripheral vascular disease, anemia, presented by outside rigger with altered mental status. Patient noted to have acute onset of increased confusion . Patient also noted to be short of breath and hypotensive by paramedics. He started on the IV fluids. Supplemental oxygen provided via 100 percent nonrebreathing mask. Upon evaluation in the ED patient was tachycardic, tachypneic, severely hypotensive, with blood pressure 53/31, and hypoxic requiring 100% nonrebreathing mask. In the emergency department patient had central line placed for pressors. Laboratory work-up revealed leukocytosis 13.2 anemia with hemoglobin 10.2, hematocrit 31. ABG on 100% nonrebreathing mask was stable. Chemistry showed BUN 40, creatinine 4.2, glucose 165. Magnesium 1.6. Lactic acid 3.4. Troponin -0 0.041, pro BNP 7678. EKG revealed sinus tachycardia with wide QRS and occasional premature ventricular complexes. Right bundle branch block. No acute ischemic changes Urinalysis revealed evidence of UTI. Chest x-ray demonstrated retrocardiac consolidation with suspicion for pneumonia. Chest X ray after placement of central line confirmed satisfactory position of right internal jugular central venous catheter. Retrocardiac consolidation, possibly pneumonia, again demonstrated. Patient also undergone CTA of the chest, which revealed no central pulmonary emboli. Questionable opacification of the right lower lobe branches versus artifact due to motion noted. Right lower lobe emboli could not be excluded. Noted 2.5 x 2.3 x 1.7 cm right apical masslike opacity with smaller adjacent similar smaller opacity. Probably scarring, but a possibility of neoplasm could not be ruled out. Evidence of old granulomatous disease, in the left greater than in the right , with mediastinal lymph nodes. Patient started on the IV fluids and pressors. Patient started on anticoagulation with heparin drip and was admitted to ICU for further management CONSULTANTS: software project lead Dr. Hunt pulmonary Dr. Najera ID specialist Dr. English supervisor pre wave Dr. Nicolas fish stringer assembler/oncologist Dr. Womack surgery Dr. Alfaro psychiatrist [facility] COURSE: Patient admitted to ICU. Patient started on IV fluids and pressors to keep mean arterial blood pressure above 65. Patient was started on heparin drip. Hemodynamic status was closely monitored. Patient was able to be weaned from pressors. Patient started on midodrine. Blood pressure stabilized. Supplemental oxygen provided as needed to keep pulse oximetry [id number] Pulmonary toilet via hand-held nebulizing therapy provided. Patient was suctioned as needed. Blood culture revealed MRSA . Urine culture revealed Proteus mirabilis ESBL. Repeated blood culture still revealed MRSA . Repeated urine culture was negative Antibiotic provided as per ID specialist recommendation. Patient had persistent bacteremia . Echocardiogram revealed no evidence of vegetation. Patient will need to complete antibiotic course at the facility as per ID specialist recommendation Cardiology consult requested due to wide-complex tachycardia. Per software project lead patient had underlying bifascicular block with right bundle branch block mixed with wide complex tachycardia. Heart rate stabilized. Tachycardia was likely secondary to underlying sepsis. Heart rate stabilized. Echocardiogram revealed preserved ejection fraction 65% with mild left ventricular hypertrophy left atrial pressure moderately elevated grade 2. Right ventricular systolic pressure of 35 consistent with a borderline mild pulmonary hypertension. No evidence of vegetation. Feed Mixer Helper / oncologist followed. Patient had an evidence of lung mass with concern for stage II/III disease, rule out metastasis. Lung mass was suspicious for malignancy , given right apical location with adenopathy. Concession Attendant recommended CT-guided biopsy of lung mass. Per oncologist, patient will need a tissue diagnosis, as well as further work- up. Given advanced age oncologist recommended hold off and any extensive immediate care Anticoagulation changed to Xarelto as per fish stringer assembler . Patient noted to have iron overload with ferritin level 1327. Feed Mixer Helper recommended to consider chelation therapy prior to blood transfusion . Hemoglobin and hematocrit were closely monitored with goal to keep hemoglobin above 7 . Prior to discharge hemoglobin 9.6, hematocrit 28.9. GI prophylaxis provided. Bowel regimen instituted. Supportive care provided. Renal parameters and electrolytes were closely monitored, electrolytes corrected as needed , and nephrotoxins were avoided. Prior to discharge BUN from 40 down to 10 , and creatinine from 4.2 down to 1.3. Bedside swallow evaluation revealed evidence of dysphagia. Diet was recommended for quality of life with strict aspiration / reflux precaution and one-to-one feeding. Diet texture provided as per speech therapist recommendations. Video swallow study could be done as outpatient. Nutritional recommendation implemented in plan of care. Surgeon followed for deep tissue pressure injury sacrococcygeal, al present on admission. Wound care provided as per surgeon recommendation. Continue wound care at the facility. Psychiatrist followed. Per psychiatrist patient had schizophrenia. Patient started on Zyprexa at bedtime. Patient clinically stabilized and was ready for transfer back to [facility] facility for further management. CT guided biopsy of lung mass as outpatient. FINAL DIAGNOSES: Sepsis with septic shock MRSA bacteremia Proteus ESBL UTI Pneumonia Acute respiratory failure on admission ( requiring non-rebreathing mask)- resolved Acute renal failure -resolved Lung mass suspicious for malignancy Pulmonary emboli , possibly related to mass/malignancy Wide-complex tachycardia with underlying bifascicular block and right bundle branch block Dementia with behavioral disturbances Schizophrenia Anemia Sacral coccygeal DTI , present on admission DISCHARGE MEDICATIONS: See Medication Reconciliation list. DISCHARGE INSTRUCTIONS: Patient was discharged to the [facility] facility. Follow up with medical doctor at the facility. I have been assigned to dictate discharge summary for this account. I was not involved in the patient's management. Olimpia Warner NP Jan 25, 2019 16:19
== END 2019-01-24 15:53 | DRG 871 ==
LOC: EDBD 20:58 → EMR 21:38 → ICU 21:40 → EDBEDREQ 01-19 01:04 → 2W 01-21 20:20
DX: A41.02 Sepsis due to Methicillin resistant Staphylococcus aureus (principal); R65.21 Severe sepsis with septic shock; J18.9 Pneumonia, unspecified organism; J96.00 Acute respiratory failure, unspecified whether with hypoxia or hypercapnia; I26.99 Other pulmonary embolism without acute cor pulmonale; G93.40 Encephalopathy, unspecified; N39.0 Urinary tract infection, site not specified; I45.2 Bifascicular block; N17.9 Acute kidney failure, unspecified; C34.91 Malignant neoplasm of unspecified part of right bronchus or lung; F03.91 Unspecified dementia, unspecified severity, with behavioral disturbance; I10 Essential (primary) hypertension; F20.9 Schizophrenia, unspecified; B96.4 Proteus (mirabilis) (morganii) as the cause of diseases classified elsewhere; Z16.12 Extended spectrum beta lactamase (ESBL) resistance; G40.909 Epilepsy, unspecified, not intractable, without status epilepticus; I73.9 Peripheral vascular disease, unspecified; R91.8 Other nonspecific abnormal finding of lung field; L89.150 Pressure ulcer of sacral region, unstageable; F41.9 Anxiety disorder, unspecified
CPT/HCPCS: 36415; 36600; 71045; 71275; 80053; 80061; 80164; 80202; 81003; 82140; 82150; 82533; 82550; 82553; 82607; 82728; 82746; 82803; 82977; 83036; 83540; 83550; 83605; 83690; 83735; 83880; 84100; 84300; 84439; 84443; 84484; 84550; 85025; 85610; 85651; 85730; 86140; 86850; 86900; 86901; 87040; 87081; 87086; 87181; 89050; 93005; 93306; 96365; 99291

== ENCOUNTER 2019-02-16 09:47 | Inpatient (IN) | payer MEDICARE, OTHER, MEDICAID ==
[~2019-02-16] VITALS: Ht 182.9 cm; Wt 74.8 kg
[~2019-02-16 09:47] MED LIST: ACETAMINOPHEN120 MG RECTAL; COLACE100 MG ORAL; DIVALPROEX SOD250 MG PO; FERROUS SULFAT325 M2 ORAL; LISINOPRIL5 MG ORAL; METOPROLOL SUCC50 MG ORAL; MILK OF MA2400 MG/10 ORAL; MULTIVITAMINS1 EAC8 ORAL; PRO-AMATINE10 MG ORAL; RISPERDAL0.5 MG ORAL; TEMAZEPAM15 MG ORAL; VITAMIN C500 M5 PO; XARELTO15 MG ORAL
--- NOTE | 2019-02-16 09:50 | NUR ---
ED Nurse Note: patient brought in by ambulance from [facility] due to hypotension, on the scene, 77/45. patient is awake but unable to follow commands at this time.
[2019-02-16] MEDS ORDERED: Sodium Chloride 2,200 ML IVLG ONE (10:00)
[2019-02-16 10:30] LABS: BASOPHILS % (AUTO) 0.3 % (0.0-2.0); EOSINOPHILS % (AUTO) 0.1 % (0.0-3.0); HEMATOCRIT 31.9 % (42.0-52.0); HEMOGLOBIN 9.6 G/DL (14.2-18.0); LYMPHOCYTES % (AUTO) 12.8 % (20.0-45.0); MEAN CORPUSCULAR VOLUME 95 FL (80-99); MONOCYTES % (AUTO) 4.5 % (1.0-10.0); NEUTROPHILS % (AUTO) 82.2 % (45.0-75.0); PLATELET COUNT 333 K/UL (150-450); RED BLOOD COUNT 3.35 M/UL (4.70-6.10); RED CELL DISTRIBUTION WIDTH 15.2 % (11.6-14.8); WHITE BLOOD COUNT 14.6 K/UL (4.8-10.8)
[2019-02-16 10:31] VITALS: BP 83/59
[2019-02-16 10:34] LABS: ANION GAP 9 mmol/L (5-15); BLOOD UREA NITROGEN 27 mg/dL (7-18); CALCIUM 9.1 MG/DL (8.5-10.1); CARBON DIOXIDE 24 MMOL/L (21-32); CHLORIDE 114 MMOL/L (98-107); CREATININE 1.6 MG/DL (0.55-1.30); SODIUM 147 MMOL/L (136-145)
[2019-02-16] MEDS ORDERED: Acetaminophen 650 MG SUPP RECTAL ONE (10:45)
[2019-02-16 10:49] LABS: ALANINE AMINOTRANSFERASE 8 U/L (12-78); ALBUMIN 1.2 G/DL (3.4-5.0); ALBUMIN/GLOBULIN RATIO 0.2 (1.0-2.7); ALKALINE PHOSPHATASE 59 U/L (46-116); APPEARANCE,URINE SLIGHTLY CLOUDY; ASPARTATE AMINO TRANSFERASE 20 U/L (15-37); BILIRUBIN, URINE NEGATIVE (NEGATIVE); BILIRUBIN,TOTAL 0.3 MG/DL (0.2-1.0); CKMB 0.6 NG/ML (0.0-3.6); CREATINE KINASE 52 U/L (26-308); GLUCOSE, URINE (UA) NEGATIVE (NEGATIVE); KETONES,URINE NEGATIVE (NEGATIVE); LEUKOCYTE ESTERASE ,URINE 3+ (NEGATIVE); NITRITE,URINE POSITIVE (NEGATIVE); PH,URINE 6 (4.5-8.0); PROTEIN,URINE 3+ (NEGATIVE); UROBILINOGEN,URINE 1 MG/DL (0.0-1.0)
[2019-02-16 10:51] LABS: COLOR,URINE YELLOW
--- NOTE | 2019-02-16 11:00 | NUR ---
ED Nurse Note: lactic reflex sent to lab, mrsa/vre/cre screen done sent to lab
[2019-02-16] MEDS ORDERED: Azithromycin 500 MG in NS 275 ML IV ONE (11:15)
[2019-02-16] MEDS ORDERED: Piperacillin/Tazobactam 3.375 GM in NS 110 ML IVPB ONE (11:15)
[2019-02-16 11:26] VITALS: BP 110/55
--- NOTE | 2019-02-16 11:40 | Diagnostic Imaging Report ---
Indication: Dyspnea Comparison: 01/21/2019 A single view chest radiograph was obtained. Findings: There is a retrocardiac density that is ill-defined but stable. Heart is borderline enlarged. Bones are unremarkable. IMPRESSION: No significant change. Chronic left basilar density may be atelectasis or scarring.
--- NOTE | 2019-02-16 12:53 | NUR ---
ED Nurse Note: Report given to Melanie BERGER. Endorsed all plan of care to Melanie BERGER. Patient has a pair of heel boot, which is being transferred with the patient,.
[2019-02-16 12:56] VITALS: BP 120/45
[2019-02-16 13:30] VITALS: BP 138/60
--- NOTE | 2019-02-16 14:30 | NUR ---
NURSE NOTES: received pt from ER with DX Hypotension, awake, confused, BP stable now, no co pain, RA O2sat 98%, skin warm and dry to touch, multiple decub on sacral, both feet, wound nurse saw pt, picture taken, pt on matrass, bed in low position, hob elevated, HR up 160 and back to SR, DR. Mims aware.
--- NOTE | 2019-02-16 14:40 | Emergency Room Report ---
History of Present Illness General Chief Complaint: General Complaint Source: Patient, Medical Record, EMS Present Illness HPI 89-year-old male presents ED for evaluation. Brought in by EMS from senior living facility. Nursing staff states patient noted to be hypotensive today. Systolic in the 70s. Patient denies any chest pain or shortness of breath. Febrile as per triage. No other aggravating or relieving factors. Denies any other associated symptoms Allergies: Coded Allergies: No Known Allergies (Unverified , 01/18/19) Patient History Past Medical History: HTN, dementia, other - encpehalopathy Pertinent Family History: none Social History: Denies: smoking, alcohol use, drug use Immunizations: UTD Reviewed Nursing Documentation: PMH: Agreed; PSxH: Agreed Nursing Documentation-PMH Hx Cardiac Problems: Yes Hx Hypertension: Yes Hx Cancer: No Hx Gastrointestinal Problems: No Hx Neurological Problems: Yes Hx Cerebrovascular Accident: Yes - Encephalopathy, anemia Hx Dementia: Yes Hx Seizures: Yes Review of Systems All Other Systems: negative except mentioned in HPI Physical Exam Vital Signs Date Time Temp Pulse Resp B/P (MAP) Pulse Ox O2 Delivery O2 Flow Rate FiO2 02/16/19 09:41 98.6 130 19 77/45 (56) 99 Room Air Sp02 EP Interpretation: reviewed, normal General Appearance: no apparent distress, alert, GCS 15, non-toxic Head: normocephalic, atraumatic Eyes: bilateral eye normal inspection, bilateral eye PERRL ENT: hearing grossly normal, normal pharynx, no angioedema, normal voice Neck: full range of motion, supple/symm/no masses Respiratory: chest non-tender, lungs clear, normal breath sounds, speaking full sentences Cardiovascular #1: regular rate, rhythm, no edema Cardiovascular #2: 2+ carotid (R), 2+ carotid (L), 2+ radial (R), 2+ radial (L) , 2+ dorsalis pedis (R), 2+ dorsalis pedis (L) Gastrointestinal: normal bowel sounds, non tender, soft, non-distended, no guarding, no rebound Rectal: deferred Genitourinary: normal inspection, no CVA tenderness Musculoskeletal: back normal, gait/station normal, normal range of motion, non- tender Neurologic: alert, oriented x3, responsive, motor strength/tone normal, sensory intact, speech normal Psychiatric: judgement/insight normal, memory normal, mood/affect normal, no suicidal/homicidal ideation Reflexes: 3+ bicep (R), 3+ bicep (L), 3+ tricep (R), 3+ tricep (L), 3+ knee (R) , 3+ knee (L) Lymphatic: no adenopathy Medical Decision Making Diagnostic Impression: Primary Impression: Severe sepsis Additional Impressions: UTI (urinary tract infection) Qualified Codes: N39.0 - Urinary tract infection, site not specified Dehydration Renal insufficiency ER Course Hospital Course 89 yo M presents to ED for evaluation. hypotensive in ED Differential diagnoses include: Pneumonia, UTI, sepsis, dehydration, MO/ unstable angina Clinical course Patient placed on stretcher. On panel monitor with hypotension. After initial history and physical, I ordered labs, IV fluids, EKG, chest x-ray, blood cultures, UA. Labs - Na 147, BUN/Cr elevated, noted leukocytosis, troponins negative, UA grossly positive for UTI, lactic > 5 EKG - undetermined rhythm. no acute ischemic changes interpreted by me CXR - atelectasis L sided broad spectrum antibiotics given. Given 30 cc/kg fluid bolus with BP improved. Case discussed with Dr Mims and they agreed to admit patient to their service for further care and support I feel this is a highly complex case requiring extensive working including EKG/ Rhythm strip, Xray/CT/US, Blood/urine lab work, repeat exams while in ED, and administration of strong opiates/narcotics for pain control, admission to hospital or close patient follow up. Diagnosis - severe sepsis, UTI, dehydration, renal insuffiency Patient admitted to SDU in serious condition Labs Test 02/16/19 09:55 02/16/19 11:10 White Blood Count 14.6 K/UL (4.8-10.8) Red Blood Count 3.35 M/UL (4.70-6.10) Hemoglobin 9.6 G/DL (14.2-18.0) Hematocrit 31.9 % (42.0-52.0) Mean Corpuscular Volume 95 FL (80-99) Mean Corpuscular Hemoglobin 28.6 PG (27.0-31.0) Mean Corpuscular Hemoglobin Concent 30.2 G/DL (32.0-36.0) Red Cell Distribution Width 15.2 % (11.6-14.8) Platelet Count 333 K/UL (150-450) Mean Platelet Volume 5.6 FL (6.5-10.1) Neutrophils (%) (Auto) 82.2 % (45.0-75.0) Lymphocytes (%) (Auto) 12.8 % (20.0-45.0) Monocytes (%) (Auto) 4.5 % (1.0-10.0) Eosinophils (%) (Auto) 0.1 % (0.0-3.0) Basophils (%) (Auto) 0.3 % (0.0-2.0) Urine Color Yellow Urine Appearance Slightly cloudy Urine pH 6 (4.5-8.0) Urine Specific [place] 1.010 (1.005-1.035) Urine Protein 3+ (NEGATIVE) Urine Glucose (UA) Negative (NEGATIVE) Urine Ketones Negative (NEGATIVE) Urine Blood 5+ (NEGATIVE) Urine Nitrite Positive (NEGATIVE) Urine Bilirubin Negative (NEGATIVE) Urine Urobilinogen 1 MG/DL (0.0-1.0) Urine Leukocyte Esterase 3+ (NEGATIVE) Urine RBC Tntc /HPF (0 - 0) Urine WBC Tntc /HPF (0 - 0) Urine Squamous Epithelial Cells Occasional /LPF Urine Bacteria Many /HPF (NONE) Sodium Level 147 MMOL/L (136-145) Potassium Level 4.0 MMOL/L (3.5-5.1) Chloride Level 114 MMOL/L (98-107) Carbon Dioxide Level 24 MMOL/L (21-32) Anion Gap 9 mmol/L (5-15) Blood Urea Nitrogen 27 mg/dL (7-18) Creatinine 1.6 MG/DL (0.55-1.30) Estimat Glomerular Filtration Rate mL/min (>60) Glucose Level 206 MG/DL (74-106) Lactic Acid Level 5.40 mmol/L (0.4-2.0) 3.50 mmol/L (0.66-2.22) Calcium Level 9.1 MG/DL (8.5-10.1) Total Bilirubin 0.3 MG/DL (0.2-1.0) Aspartate Amino Transf (AST/SGOT) 20 U/L (15-37) Alanine Aminotransferase (ALT/SGPT) 8 U/L (12-78) Alkaline Phosphatase 59 U/L (46-116) Total Creatine Kinase 52 U/L (26-308) Creatine Kinase MB 0.6 NG/ML (0.0-3.6) Creatine Kinase MB Relative Index 1.1 Troponin I 0.034 ng/mL (0.000-0.056) Pro-B-Type Natriuretic Peptide 2556 pg/mL (0-125) Total Protein 6.6 G/DL (6.4-8.2) Albumin 1.2 G/DL (3.4-5.0) Globulin 5.4 g/dL Albumin/Globulin Ratio 0.2 (1.0-2.7) EKG Diagnostic Results Rate: normal Rhythm: other - undetermined rhythm ST Segments: no acute changes ASA given to the pt in ED: No Rhythm Strip Diag. Results EP Interpretation: yes Rhythm: NSR, no PVC's, no ectopy Chest X-Ray Diagnostic Results Chest X-Ray Diagnostic Results : Chest X-Ray Ordered: Yes # of Views/Limited/Complete: 1 View Indication: Other EP Interpretation: Yes Interpretation: no effusion, no pneumothorax, other - L sided atelectasis Impression: Other - atelectasis/pneumonia Electronically Signed by: Electronically signed by Octavio Cadet MD Last Vital Signs Date Time Temp Pulse Resp B/P (MAP) Pulse Ox O2 Delivery O2 Flow Rate FiO2 02/16/19 12:56 99.4 82 18 120/45 100 Room Air Status: improved Disposition: ADMITTED INPATIENT Condition: Serious Referrals: Elmo Mims MD (PCP) Octavio Cadet MD Feb 16, 2019 14:40
[2019-02-16 16:00] VITALS: BP 143/63
--- NOTE | 2019-02-16 16:17 | NUR ---
NURSE NOTES:WOUND CARE NOTES:Pt presented on admission with multiple pressure injuries and ulcerations to lower extremities. Unstageable pressure injury with irregular borders noted to sacrum . Base of wound has 100% mixed slough and necrosis.Edges adherent and dark . Periwound indurated with darker skin tone. Pt complained of pain when minimally palpated. Mild odor noted(L)11.1cm x (W)9cm. Full thickness ulcer R tibia. Base of wound has 100% yellow slough. Edges adherent and flat ,Periwound without erythema or fluctuance.(L)2.5cm x (W)1.5cm. Stable dry eschar noted to R hallux. edges are dark but adherent to base of wound. Periwound dark without erythema or fluctuance.(L)1.5cm x (W)2cm. Stable dry eschar noted to R st metatarsal head. Periwound pale without fluctuance. (L)1.5cm x (W)2.5cm. Stable dry eschar noted to dorsal aspects of R 3rd and 4th metatarsals. Full thickness ulcer lateral R 5th metatarsal. base of wound 50% erythematous 50% necrotic. Edges are black . No odor or exudate noted(L)1.5cm x (W)1.6cm. Stable dry eschar R heel . Periwound fluctuant without erythema. Pt complained of pain when minimally palpated.(L)3.5cm x (W)5.5cm. Stable dry eschar noted to dorso/flexor L foot. Periwound without erythema ,induration or fluctuance (L)2.8cm x (W)1cm. Reabsorbing blood blister noted to medial L foot. Base of wound 25% fluctuant ,75% reabsorbed. Periwound without erythema or fluctuance(L)2cm x (W)3.1cm. L heel is dry and blanchable with historical scarring from previous wounds .Dry flaky skin noted to both feet. Tx.Plan: Swab all wounds both lower ext and feet with Betadine. Cover each wound with Optifoam drsgs every 3 days and prn. Cleanse Sacral wound with Saline. Apply Therahoney. Apply Moisture Barrier Paste periwound. Cover with Optifoam Drsg. Change Daily and prn. APM/PHIL mattress overlay. Reposition at least every 2hours or as tolerated. Off-load heels with pillow.
[2019-02-16] MEDS ORDERED: Albuterol/Ipratropium 3ml neb HHN PRN (16:30)
--- NOTE | 2019-02-16 17:16 | Consultation ---
Consult Note Assessment/Plan Pulmonary Consultation HISTORY OF PRESENT ILLNESS: An elderly gentleman who was brought in from a nursing facility after increased altered mental status. He was hypotensive and found UTI with sepsis. PAST MEDICAL HISTORY: Includes dementia, depression, hypertension. Hospitalized at until yesterday and also in January here and CS for SVT, renal failure dehydration, R apical scar vs mass, LLL atelectasis, schizophrenia. MEDICATIONS: reviewed ALLERGIES: He has no known allergies. FAMILY HISTORY: Unavailable. REVIEW OF SYSTEMS: Unreliable. He is nonambulatory at baseline. PHYSICAL EXAMINATION: GENERAL: At the time my exam, he is alert, mumbling. He is not oriented to person. He is in no acute distress. He is afebrile. VITAL SIGNS: low BP in ED, normal now after fluids. Sat normal on RA HEENT: He is normocephalic and atraumatic. Poor dentition noted. Oropharynx is moist. Nasal mucosa is moist. NECK: Supple. LUNGS: Decreased at bases. No wheeze present. HEART: Regular rate and rhythm without a murmur. ABDOMEN: Soft and nontender. Positive bowel sounds. EXTREMITIES: Positive edema. Does spontaneously move all extremities. Multiple wounds Labs reviewed Sepsis with shock UTI causing sepsis dementia atelectasis and scar hx SVT abx IVF HHN poor candidate for invasive pulmonary procedure Barry Najera MD Feb 16, 2019 17:16
[2019-02-16] MEDS ORDERED: Vancomycin 1.5gm Premix IVPB ONE (17:30)
[2019-02-16] MEDS: D5 1/2NS 1,000 ML IV SCH (18:22)
--- NOTE | 2019-02-16 18:45 | History and Physical Report ---
DATE OF ADMISSION: 02/16/2019 HISTORY OF PRESENT ILLNESS: This is an 89-year-old male who came from the group home where he had altered mental status, hypertension, septic shock, sepsis. The patient also found to have tachycardia. The patient currently awake and confused. His daughter is at the bedside. The patient is currently talking now, but he is confused. His blood pressure stable. His white counts are high. Potassium slightly high. Also, has some cardiac arrhythmia. PAST MEDICAL HISTORY: Significant for syncope, dizziness, hypertension, dementia, depression. MEDICATIONS: He is taking Depakote, Risperdal, Tylenol, Xarelto for DVT. PHYSICAL EXAMINATION: GENERAL: This is an elderly male, currently confused in the bed, but otherwise looks comfortable. VITAL SIGNS: Blood pressure is 130/70, pulse 74, respirations 18, temperature . SKIN: Looks little dehydrated. HEENT: Eyes are open. NECK: Supple. CHEST: Bilateral few crackles and wheezing. CARDIOVASCULAR: Regular rhythm. No gallop. No murmur. ABDOMEN: Soft. Positive bowel sounds. Nontender. EXTREMITIES: Trace edema. GENITOURINARY: Deferred. LABORATORY EXAMINATION: Elevated white counts. BUN, creatinine slightly high. Lactic acid is 5.6. ASSESSMENT: 1. Sepsis. 2. Hypertension. 3. Dehydration. 4. Dysphagia. 5. Failure to thrive. PLAN: 1. We will admit on a step-down unit. 2. We will start on IV fluid and IV antibiotics. 3. Pureed diet. 4. Discontinue all the Risperdal and Depakote. 5. Discussed with the charge nurse. 6. Obtain a Pulmonary as well as ID consult. 7. paperwork for work. Pedrito Mims M.D. DR: FORREST JOB#: [id number] CC:
--- NOTE | 2019-02-16 19:06 | NUR ---
HAND-OFF: Report given to EVITA BERGER.
--- NOTE | 2019-02-16 19:15 | NUR ---
NURSE NOTES: Received report from Nhan BERGER, pt. in bed awake, Family at bedside, pt. is alert to name, no signs or symptoms of acute cardiac or respiratory distress noted, bed in lowest position and call light within easy reach, bed alarm on, side rails up x's up x's3 and safety brakes engaged, pt. appears to be sating well on room air at 97%- no distress noted, pt. is clean and dry, comfort measures provided, RFA 20G D5 1/2 NS at 100cc/hr- IV intact and patent, safety measures continued, will continue with plan of care. Addendum: 02/16/19 at 1933 by JANIE JAMA RN RN per endorsement to cancel [facility] order per DR. Mims. pt. has side rails padded for seizure precautions- no seizure activity noted.
--- NOTE | 2019-02-16 19:50 | NUR ---
NURSE NOTES: per playground monitor Cade rhythm not clear- EKG done and shown to DR. Carvalho- pt. remains stable- awaiting for orders from doctor.
[2019-02-16 20:00] VITALS: BP 111/84
[2019-02-16] MEDS ORDERED: Albuterol/Ipratropium 3ml neb HHN SCH (20:30)
[2019-02-16] MEDS ORDERED: Metoprolol 5mg/5ml Inj IVP SCH (20:45)
--- NOTE | 2019-02-16 20:46 | Cardiology Progress Note ---
Assessment/Plan Assessment/Plan iv and po bb for now tsh in am trop and ekg in am will follow [id number] Objective Last 24 Hour Vital Signs Date Time Temp Pulse Resp B/P (MAP) Pulse Ox O2 Delivery O2 Flow Rate FiO2 02/16/19 16:23 Room Air 02/16/19 16:00 97.9 96 21 143/63 (89) 100 02/16/19 15:12 92 02/16/19 13:30 97.7 94 18 138/60 (86) 99 02/16/19 12:56 99.4 82 18 120/45 100 Room Air 02/16/19 12:55 99.4 91 23 110/55 100 Room Air 02/16/19 12:01 99.4 02/16/19 11:26 100.3 91 23 110/55 100 Room Air 02/16/19 10:34 99 17 Room Air 02/16/19 10:31 100.3 99 17 83/59 98 Room Air 02/16/19 09:41 98.6 130 19 77/45 (56) 99 Room Air Laboratory Tests Test 02/16/19 09:55 02/16/19 11:10 White Blood Count 14.6 K/UL (4.8-10.8) H Red Blood Count 3.35 M/UL (4.70-6.10) L Hemoglobin 9.6 G/DL (14.2-18.0) L Hematocrit 31.9 % (42.0-52.0) L Mean Corpuscular Volume 95 FL (80-99) Mean Corpuscular Hemoglobin 28.6 PG (27.0-31.0) Mean Corpuscular Hemoglobin Concent 30.2 G/DL (32.0-36.0) L Red Cell Distribution Width 15.2 % (11.6-14.8) H Platelet Count 333 K/UL (150-450) Mean Platelet Volume 5.6 FL (6.5-10.1) L Neutrophils (%) (Auto) 82.2 % (45.0-75.0) H Lymphocytes (%) (Auto) 12.8 % (20.0-45.0) L Monocytes (%) (Auto) 4.5 % (1.0-10.0) Eosinophils (%) (Auto) 0.1 % (0.0-3.0) Basophils (%) (Auto) 0.3 % (0.0-2.0) Urine Color Yellow Urine Appearance Slightly cloudy Urine pH 6 (4.5-8.0) Urine Specific [place] 1.010 (1.005-1.035) Urine Protein 3+ (NEGATIVE) H Urine Glucose (UA) Negative (NEGATIVE) Urine Ketones Negative (NEGATIVE) Urine Blood 5+ (NEGATIVE) H Urine Nitrite Positive (NEGATIVE) H Urine Bilirubin Negative (NEGATIVE) Urine Urobilinogen 1 MG/DL (0.0-1.0) H Urine Leukocyte Esterase 3+ (NEGATIVE) H Urine RBC Tntc /HPF (0 - 0) H Urine WBC Tntc /HPF (0 - 0) H Urine Squamous Epithelial Cells Occasional /LPF Urine Bacteria Many /HPF (NONE) H Sodium Level 147 MMOL/L (136-145) H Potassium Level 4.0 MMOL/L (3.5-5.1) Chloride Level 114 MMOL/L (98-107) H Carbon Dioxide Level 24 MMOL/L (21-32) Anion Gap 9 mmol/L (5-15) Blood Urea Nitrogen 27 mg/dL (7-18) H Creatinine 1.6 MG/DL (0.55-1.30) H Estimat Glomerular Filtration Rate mL/min (>60) Glucose Level 206 MG/DL (74-106) H Lactic Acid Level 5.40 mmol/L (0.4-2.0) H 3.50 mmol/L (0.66-2.22) H Calcium Level 9.1 MG/DL (8.5-10.1) Total Bilirubin 0.3 MG/DL (0.2-1.0) Aspartate Amino Transf (AST/SGOT) 20 U/L (15-37) Alanine Aminotransferase (ALT/SGPT) 8 U/L (12-78) L Alkaline Phosphatase 59 U/L (46-116) Total Creatine Kinase 52 U/L (26-308) Creatine Kinase MB 0.6 NG/ML (0.0-3.6) Creatine Kinase MB Relative Index 1.1 Troponin I 0.034 ng/mL (0.000-0.056) Pro-B-Type Natriuretic Peptide 2556 pg/mL (0-125) H Total Protein 6.6 G/DL (6.4-8.2) Albumin 1.2 G/DL (3.4-5.0) L Globulin 5.4 g/dL Albumin/Globulin Ratio 0.2 (1.0-2.7) L Microbiology Date/Time Source Procedure Growth Status 02/16/19 10:37 Rectum Received Luis Alberto Mcleod MD Feb 16, 2019 20:46
[2019-02-16] MEDS: Piperacillin/Tazobactam 3.375 GM in NS 110 ML IVPB SCH (21:00)
[2019-02-16] MEDS: Metoprolol 25mg tab ORAL SCH (21:06)
--- NOTE | 2019-02-16 22:00 | Consultation ---
DATE OF CONSULTATION: 02/16/2019 CARDIOLOGY CONSULTATION CONSULTING PHYSICIAN: Luis Alberto Mcleod M.D. REFERRING PHYSICIAN: Pedrito Mims M.D. REASON FOR REFERRAL: Tachycardia. HISTORY OF PRESENT ILLNESS: This is an elderly gentleman who is really not able to provide any meaningful history whatsoever. The patient was admitted from a convalescent facility with alteration of mental status and was noted to be hypotensive, systolic blood pressure in the 70s and was treated in the emergency room. He has been admitted to the hospital with possible sepsis and developed episodes of intermittent tachycardia, this consultation was requested. He is really not having any chest pain or shortness of breath. No palpitations. PAST MEDICAL HISTORY: Positive for history of multiple hospitalizations. Previously, he has had history of renal failure, mild cardiac enzyme abnormality, altered mentation, hypertension, dehydration, history of dementia, reported history of sinus tachycardia with aberrant conduction secondary to infection on prior occasions, schizophrenia and schizoaffective disorder. Most recently was here with the lung mass right atypical suspicious for malignancy with adenopathy, pneumonia and sepsis. Review of [facility] notes indicate the patient has had episodes of tachycardia in the 140s responded to beta-blockers that were administered at [facility] previously as well, received some intravenous fluids during that hospitalization with improvement in his symptoms eventually and was discharged back to convalescent facility and discharged occurred over the past few days. Now the patient was readmitted here. ALLERGIES: He is not known to be allergic to any medications. SOCIAL HISTORY: Smoking, not at the present time. No alcohol, no drugs at the present time. Prior history is unknown. REVIEW OF SYSTEMS: GASTROINTESTINAL: Denies any abdominal pain. No nausea or vomiting. GENITOURINARY: Denies any discomfort on urination. PULMONARY: Denies any coughing or wheezing. CONSTITUTIONAL: No reports of fevers or chills. PHYSICAL EXAMINATION: GENERAL: Shows to be elderly gentleman, in no respiratory distress, comfortable lying down. NECK: Supple. LUNGS: Really unable to examine posteriorly/anteriorly. Lungs appear to be clear. CARDIAC: Distant heart sounds. Regular rhythm. No heaves or thrills noted. ABDOMEN: Soft, nontender. Positive bowel sounds. EXTREMITIES: No edema. He has multiple dressing in the lower extremities prior to admission. LABORATORY AND DIAGNOSTIC DATA: Last echocardiogram performed here 01/22/2019 showed ejection fraction 65%, mild aortic regurgitation, and PA pressure of [address] of the chest at that time had shown 2.5 x 1.8 x 2.3 cm apical masslike opacity scar versus neoplasm, hilar adenopathy, small pericardial effusion, T12 endplate irregularity. His electrocardiogram performed showed what appears to be sinus tachycardia at a rate of 147, really atrial activity is not known. There is right bundle-branch conduction defect with left posterior fascicular block, low voltage QRS complexes are noted. Chest x-ray performed today shows retrocardiac densities, ill defined but stable. Heart borderline enlarged. Bones are unremarkable. Blood tests, white count 14.6, hemoglobin 9.6, and platelet count 333,000. Sodium 147, potassium 4.0, chloride 102, bicarb 24, BUN of 27, creatinine 1.6, glucose of 206. Lactic acid of 5.4, subsequently 3.5. Calcium is 9.0. Troponin 0.03 with ProBNP of 2500. Albumin of 1.2. No coags are available. Urinalysis to numerous too count WBCs. ASSESSMENT AND PLAN: 1. Tachycardia. 2. Right bundle-branch left anterior fascicular block. 3. Probable urinary tract infection. 4. Dementia. 5. Questionable history of recent mass in the lungs. 6. History of hypertension. Dr. Mims, this patient was seen in cardiac consultation. The patient needs to be on some beta-blockers. He had been previously on beta blockers before, not sure what he is receiving at this time. He has been on metoprolol in the convalescent facility in addition to lisinopril, would resume those two medications. Intravenous dose of metoprolol will be administered for the time being. Jingrellissette has been on board with mg daily as well as Carafate, those will be continued as well. Repeat cardiac enzymes and EKG will be performed and the patient will be followed as well . Luis Alberto Mcleod M.D. DR: Micaela JOB#: [id number] CC:
[2019-02-17] VITALS: BP 119/74
[2019-02-17] MEDS: D5 1/2NS 1,000 ML IV SCH ×2 (02:59→04:13)
[2019-02-17 04:00] VITALS: BP 131/69
[2019-02-17 04:50] LABS: HEMATOCRIT 29.8 % (42.0-52.0); HEMOGLOBIN 9.3 G/DL (14.2-18.0); MEAN CORPUSCULAR VOLUME 93 FL (80-99); PLATELET COUNT 309 K/UL (150-450); RED BLOOD COUNT 3.21 M/UL (4.70-6.10); RED CELL DISTRIBUTION WIDTH 14.7 % (11.6-14.8); WHITE BLOOD COUNT 19.7 K/UL (4.8-10.8)
[2019-02-17] MEDS: Piperacillin/Tazobactam 3.375 GM in NS 110 ML IVPB SCH ×3 (05:02→21:37)
[2019-02-17 05:03] LABS: ALANINE AMINOTRANSFERASE 7 U/L (12-78); ALBUMIN 1.2 G/DL (3.4-5.0); ALBUMIN/GLOBULIN RATIO 0.2 (1.0-2.7); ALKALINE PHOSPHATASE 59 U/L (46-116); ANION GAP 8 mmol/L (5-15); ASPARTATE AMINO TRANSFERASE 18 U/L (15-37); BILIRUBIN,TOTAL 0.4 MG/DL (0.2-1.0); BLOOD UREA NITROGEN 24 mg/dL (7-18); CARBON DIOXIDE 24 MMOL/L (21-32); CHLORIDE 116 MMOL/L (98-107); CREATININE 1.5 MG/DL (0.55-1.30); POTASSIUM 3.7 MMOL/L (3.5-5.1); SODIUM 148 MMOL/L (136-145)
--- NOTE | 2019-02-17 07:14 | NUR ---
HAND-OFF: Report given to Schuyler RN, pt. remains stable and no signs of distress noted. Aware to f/u on WBCs elevated.
--- NOTE | 2019-02-17 07:22 | NUR ---
NURSE NOTES: Received report from [facility] [place]. Patient is resting in bed, in stable condition. No s/sx of SOB, breathing is even and unlabored. Bed is in lowest position, brakes engaged. Call light is kept within easy reach. Will continue to monitor patient.
[2019-02-17 08:00] VITALS: BP 121/62
[2019-02-17] MEDS: Metoprolol 25mg tab ORAL SCH (08:12)
--- NOTE | 2019-02-17 09:18 | NUR ---
CASE MANAGEMENT:REVIEW 89YR OLD MALE BIBA FROM [facility] CC: HYPOTENSION ~ BP 77/45 SI: SEPSIS. DEHYDRATION. UTI 100.3 130 23 77/45 99% ON RA WBC+14.6 LACTIC ACID+5.40 AND 3.50 IS: 2L NS BOLUS TYLENOL NV IV ZOSYN IV AZITHROMYCIN CHEST XRAY BLOOD CX : TO STEPDOWN UNIT INTERQUAL CRITERIA MET
--- NOTE | 2019-02-17 09:57 | Pulmonology Progress Note ---
Assessment/Plan Assessment/Plan Sepsis with shock, improved UTI causing sepsis dementia atelectasis and scar hx SVT mental status better continue abx IVF HHN poor candidate for invasive pulmonary procedure Subjective ROS Limited/Unobtainable: Yes Allergies: Coded Allergies: No Known Allergies (Unverified , 01/18/19) Objective Last 24 Hour Vital Signs Date Time Temp Pulse Resp B/P (MAP) Pulse Ox O2 Delivery O2 Flow Rate FiO2 02/17/19 08:12 90 121/68 02/17/19 08:00 Room Air 02/17/19 08:00 98.5 90 18 121/62 (81) 97 02/17/19 04:00 93 02/17/19 04:00 Room Air 02/17/19 04:00 98.2 89 18 131/69 (89) 99 02/17/19 00:00 Room Air 02/17/19 00:00 97.0 71 18 119/74 (89) 99 02/16/19 23:33 68 02/16/19 21:14 84 02/16/19 21:06 87 116/72 02/16/19 20:54 88 02/16/19 20:47 145 141/72 02/16/19 20:00 Room Air 02/16/19 20:00 98.0 102 18 111/84 (93) 98 02/16/19 20:00 98 02/16/19 16:23 Room Air 02/16/19 16:00 97.9 96 21 143/63 (89) 100 02/16/19 15:12 92 02/16/19 13:30 97.7 94 18 138/60 (86) 99 02/16/19 12:56 99.4 82 18 120/45 100 Room Air 02/16/19 12:55 99.4 91 23 110/55 100 Room Air 02/16/19 12:01 99.4 02/16/19 11:26 100.3 91 23 110/55 100 Room Air 02/16/19 10:34 99 17 Room Air 02/16/19 10:31 100.3 99 17 83/59 98 Room Air Intake and Output 02/16/19 02/17/19 18:59 06:59 Intake Total 1309.5 ml Output Total 150 ml Balance -150 ml 1309.5 ml Intake IV Total 1309.5 ml Output Urine Total 150 ml # Voids 2 # Bowel Movements 1 General Appearance: no acute distress HEENT: atraumatic Respiratory/Chest: lungs clear, decreased breath sounds Cardiovascular: normal rate Microbiology Date/Time Source Procedure Growth Status 02/16/19 09:55 Urine,Clean Catch Urine Culture - Preliminary Gram Negative Bacillus 1 Resulted 02/16/19 10:37 Rectum Received Laboratory Tests 02/16/19 11:10: Lactic Acid Level 3.50H 02/17/19 04:00: White Blood Count 19.7H, Red Blood Count 3.21L, Hemoglobin 9.3L, Hematocrit 29.8L, Mean Corpuscular Volume 93, Mean Corpuscular Hemoglobin 29.1, Mean Corpuscular Hemoglobin Concent 31.4L, Red Cell Distribution Width 14.7, Platelet Count 309, Mean Platelet Volume 5.8L, Neutrophils (%) (Auto) , Lymphocytes (%) (Auto) , Monocytes (%) (Auto) , Eosinophils (%) (Auto) , Basophils (%) (Auto) , Differential Total Cells Counted 100, Neutrophils % ( Manual) 82H, Lymphocytes % (Manual) 11L, Monocytes % (Manual) 6, Eosinophils % ( Manual) 1, Basophils % (Manual) 0, Band Neutrophils 0, Platelet Estimate Adequate, Platelet Morphology Normal, Anisocytosis 1+, Sodium Level 148H, Potassium Level 3.7, Chloride Level 116H, Carbon Dioxide Level 24, Anion Gap 8, Blood Urea Nitrogen 24H, Creatinine 1.5H, Estimat Glomerular Filtration Rate , Glucose Level 105#, Calcium Level 9.0, Total Bilirubin 0.4, Aspartate Amino Transf (AST/SGOT) 18, Alanine Aminotransferase (ALT/SGPT) 7L, Alkaline Phosphatase 59, Troponin I 0.039, Pro-B-Type Natriuretic Peptide 4511H, Total Protein 6.3L, Albumin 1.2L, Globulin 5.1, Albumin/Globulin Ratio 0.2L, Thyroid Stimulating Hormone (TSH) 8.528H Current Medications Medications (Trade) Dose Ordered Sig/Vaughn Route PRN Reason Start Time Stop Time Status Last Admin Dose Admin Dextrose/Sodium Chloride 1,000 ml @ 100 mls/hr Q10H IV 02/16/19 17:30 03/18/19 17:29 02/17/19 04:13 Metoprolol Tartrate (Lopressor) 25 mg Q12HR ORAL 02/16/19 21:00 8/10/19 20:59 02/17/19 08:12 Piperacillin Sod/ Tazobactam Sod 3.375 gm/Sodium Chloride 110 ml @ 27.5 mls/hr EVERY 8 HOURS IVPB 02/16/19 22:00 02/21/19 21:59 02/17/19 05:02 Vancomycin HCl (Vanco rx to dose) 1 ea DAILY PRN MISC Per rx protocol 02/16/19 16:15 03/18/19 16:14 Barry Najera MD Feb 17, 2019 09:57
--- NOTE | 2019-02-17 10:04 | Consultation ---
History of Present Illness General Chief Complaint: General Complaint Present Illness Allergies: Coded Allergies: No Known Allergies (Unverified , 01/18/19) Medication History Scheduled Ascorbic Acid (Vitamin C), 500 MG PO BID, (Reported) Docusate Sodium* (Colace*), 100 MG ORAL DAILY, (Reported) Lisinopril (Lisinopril*), 10 MG ORAL DAILY, (Reported) Magnesium Hydroxide* (Milk Of Magnesia*), 30 ML ORAL DAILY, (Reported) Metoprolol Succinate* (Metoprolol Succinate*), 50 MG ORAL DAILY, (Reported) Midodrine (Midodrine HCl), 10 MG ORAL THREE TIMES A DAY, (Reported) Multivitamin With Minerals (Multivitamins With Minerals*), 1 TAB ORAL DAILY, ( Reported) Risperidone* (Risperdal*), 0.5 MG ORAL DAILY, (Reported) Rivaroxaban (Xarelto), 15 MG ORAL DAILY, (Reported) Temazepam (Temazepam*), 15 MG ORAL BEDTIME, (Reported) Scheduled PRN Acetaminophen* (Tylenol*), 325 MG RECTAL Q4H PRN for Mild Pain/Temp > 100.5, ( Reported) Miscellaneous Medications Divalproex Sodium (Divalproex Sodium), 250 MG PO, (Reported) Ferrous Sulfate (Ferrous Sulfate), 325 MG ORAL, (Reported) Patient History Healthcare decision maker Resuscitation status Advanced Directive on File No Physical Exam Last 24 Hour Vital Signs Date Time Temp Pulse Resp B/P (MAP) Pulse Ox O2 Delivery O2 Flow Rate FiO2 02/17/19 08:12 90 121/68 02/17/19 08:00 Room Air 02/17/19 08:00 98.5 90 18 121/62 (81) 97 02/17/19 04:00 93 02/17/19 04:00 Room Air 02/17/19 04:00 98.2 89 18 131/69 (89) 99 02/17/19 00:00 Room Air 02/17/19 00:00 97.0 71 18 119/74 (89) 99 02/16/19 23:33 68 02/16/19 21:14 84 02/16/19 21:06 87 116/72 02/16/19 20:54 88 02/16/19 20:47 145 141/72 02/16/19 20:00 Room Air 02/16/19 20:00 98.0 102 18 111/84 (93) 98 02/16/19 20:00 98 02/16/19 16:23 Room Air 02/16/19 16:00 97.9 96 21 143/63 (89) 100 02/16/19 15:12 92 02/16/19 13:30 97.7 94 18 138/60 (86) 99 02/16/19 12:56 99.4 82 18 120/45 100 Room Air 02/16/19 12:55 99.4 91 23 110/55 100 Room Air 02/16/19 12:01 99.4 02/16/19 11:26 100.3 91 23 110/55 100 Room Air 02/16/19 10:34 99 17 Room Air 02/16/19 10:31 100.3 99 17 83/59 98 Room Air Intake and Output 02/16/19 02/17/19 19:00 07:00 Intake Total 100 ml 1309.5 ml Output Total 150 ml Balance -50 ml 1309.5 ml Intake IV Total 100 ml 1309.5 ml Output Urine Total 150 ml # Voids 2 # Bowel Movements 1 Laboratory Tests Test 02/16/19 11:10 02/17/19 04:00 Lactic Acid Level 3.50 mmol/L (0.66-2.22) H White Blood Count 19.7 K/UL (4.8-10.8) H Red Blood Count 3.21 M/UL (4.70-6.10) L Hemoglobin 9.3 G/DL (14.2-18.0) L Hematocrit 29.8 % (42.0-52.0) L Mean Corpuscular Volume 93 FL (80-99) Mean Corpuscular Hemoglobin 29.1 PG (27.0-31.0) Mean Corpuscular Hemoglobin Concent 31.4 G/DL (32.0-36.0) L Red Cell Distribution Width 14.7 % (11.6-14.8) Platelet Count 309 K/UL (150-450) Mean Platelet Volume 5.8 FL (6.5-10.1) L Neutrophils (%) (Auto) % (45.0-75.0) Lymphocytes (%) (Auto) % (20.0-45.0) Monocytes (%) (Auto) % (1.0-10.0) Eosinophils (%) (Auto) % (0.0-3.0) Basophils (%) (Auto) % (0.0-2.0) Differential Total Cells Counted 100 Neutrophils % (Manual) 82 % (45-75) H Lymphocytes % (Manual) 11 % (20-45) L Monocytes % (Manual) 6 % (1-10) Eosinophils % (Manual) 1 % (0-3) Basophils % (Manual) 0 % (0-2) Band Neutrophils 0 % (0-8) Platelet Estimate Adequate Platelet Morphology Normal Anisocytosis 1+ Sodium Level 148 MMOL/L (136-145) H Potassium Level 3.7 MMOL/L (3.5-5.1) Chloride Level 116 MMOL/L (98-107) H Carbon Dioxide Level 24 MMOL/L (21-32) Anion Gap 8 mmol/L (5-15) Blood Urea Nitrogen 24 mg/dL (7-18) H Creatinine 1.5 MG/DL (0.55-1.30) H Estimat Glomerular Filtration Rate mL/min (>60) Glucose Level 105 MG/DL (74-106) # Calcium Level 9.0 MG/DL (8.5-10.1) Total Bilirubin 0.4 MG/DL (0.2-1.0) Aspartate Amino Transf (AST/SGOT) 18 U/L (15-37) Alanine Aminotransferase (ALT/SGPT) 7 U/L (12-78) L Alkaline Phosphatase 59 U/L (46-116) Troponin I 0.039 ng/mL (0.000-0.056) Pro-B-Type Natriuretic Peptide 4511 pg/mL (0-125) H Total Protein 6.3 G/DL (6.4-8.2) L Albumin 1.2 G/DL (3.4-5.0) L Globulin 5.1 g/dL Albumin/Globulin Ratio 0.2 (1.0-2.7) L Thyroid Stimulating Hormone (TSH) 8.528 uiU/mL (0.358-3.740) Microbiology Date/Time Source Procedure Growth Status 02/16/19 10:37 Rectum Received Height (Feet): 6 Height (Inches): 0.00 Weight (Pounds): 165 Medications Current Medications Medications (Trade) Dose Ordered Sig/Vaughn Route PRN Reason Start Time Stop Time Status Last Admin Dose Admin Dextrose/Sodium Chloride 1,000 ml @ 100 mls/hr Q10H IV 02/16/19 17:30 03/18/19 17:29 02/17/19 04:13 Metoprolol Tartrate (Lopressor) 25 mg Q12HR ORAL 02/16/19 21:00 03/18/19 20:59 02/17/19 08:12 Piperacillin Sod/ Tazobactam Sod 3.375 gm/Sodium Chloride 110 ml @ 27.5 mls/hr EVERY 8 HOURS IVPB 02/16/19 22:00 02/21/19 21:59 02/17/19 05:02 Vancomycin HCl (Vanco rx to dose) 1 ea DAILY PRN MISC Per rx protocol 02/16/19 16:15 03/18/19 16:14 Assessment/Plan Assessment/Plan: Hematology Consultation Chief Complaint: Altered Mental Status REQ MD: Samuel Mims DOS: 02/17/19 RFC: Dvt, lung cancer eval ID 89-year-old male brought in by EMS after increased altered mental status. Known to me from prior admission 1 month ago. Patient was noted to have reportedly previously been alert and oriented x2-3. Patient was noted to have increased confusion as well as lethargy acute onset from his alf. Patient full code. Patient had been noted to be short of breath and hypotensive by EMS and he was started on IV fluids as well as supplemental oxygen via nonrebreather mask. Patient a prior history of peripheral vascular disease as well as dementia and psychosis. He is currently on medications for his blood pressure which include metoprolol. Patient had been noted to have increased in his lungs. Currently is on abx. Coded Allergies: No Known Allergies (Unverified , 01/18/19) Past Medical History: see triage record Reviewed Nursing Documentation: PMH: Agreed; PSxH: Agreed Review of Systems: limited - by mental status PE General: severe distress, chronically Ill ENT: moist mucus membranes Neck: limited range of motion Respiratory: respiratory distress, rhonchi++ noted, nc Cardiovascular: RRr, no mgr Gastrointestinal: normal inspection, soft Msk: normal inspection Neuro: responsive, motor weakness Psychiatric: depressed affect Skin: no rash Labs: have been reviewed Imaging: noted Assessment and Recs: # Lung mass (2.5 x 2.3 x 1.8 cm right apical masslike opacity) with smaller adjacent similar smaller opacities. Favor scarring, but the possibility of neoplasm cannot be ruled out. 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 Iron Overload --> Ferrtin 1327 continue to monitor consider chelation therapy prior to blood tx. --> on iv iron # Renal insufficiency --> as per renal recs # Respiratory failure is on nc/bipap --> per pulm # Hypotension on fluids now better The timing of this note does not necessarily reflect the time of the patient was seen. GREATLY APPRECIATE CONSULTATION. Jake Womack MD Feb 17, 2019 10:04
--- NOTE | 2019-02-17 10:56 | NUR ---
RD ASSESSMENT & RECOMMENDATIONS SEE CARE ACTIVITY FOR COMPLETE ASSESSMENT DAILY ESTIMATED NEEDS: Needs based on wounds, sepsis 75kg 30-35 kcals/kg 2867-7491 total kcals 1.25-2 g protein/kg 94-150 g total protein 25-30ml/kcal mL/kg 1525-9742 total fluid mLs NUTRITION DIAGNOSIS: 1) Increased kcal/ pro needs r/t wound healing as evidenced by sacral unstageable, Full thickness L tibia wounds, elev WBC, adm w/ hypotension. 2) Swallowing difficulty r/t dysphagia as evidenced by pt on puree texture w/ NTL MACHINIST JOB SETTER. (CURRENT DIET: Regular puree) PO DIET RECOMMENDATIONS--->>>[place]/ Regular diet (texture per ACCOUNT LEADER) ADDITIONAL RECOMMENDATIONS: 1) Pt w/ variable recorded wts-> Please obtain a CALIBRATED bed wt EMR:165#, Bed wt: 199#, [place] adm wt: 158 lbs. 2) ACCOUNT LEADER eval for appropriate texture-> on [place] liquids MACHINIST JOB SETTER 3) WOUND CARE: Add BRUCE BID Add VIT C 250mg BID + Add MVI w/ min daily Add ZnSO4 220mg daily x10 days 4) Rec added Ensure Enlive BID (350 kcal each) to better meet est needs.
[2019-02-17 12:00] VITALS: BP 110/62
--- NOTE | 2019-02-17 12:00 | NUR ---
NURSE NOTES: Dr Mims at nurse station, made aware of patient's per microbiology, 4 bottles of blood culture positive for gram positive cocci in cluster. Dr. Mims acknowledged and informed this nurse that Dr. Lemon is infectious disease consult. This nurse called and left message for Dr. Lemon regarding situation. Noted. Will continue to monitor patient.
--- NOTE | 2019-02-17 13:47 | Consultation ---
History of Present Illness General Chief Complaint: General Complaint Present Illness HPI 89 year old male [facility] resident with multiple medical comorbidities presented with altered status and found to be septic. leukocytosis, tachycardia ,abnormal labs. on admission noted to have wounds requiring care. surgery called to evaluate and assist with care. patient seen, chart reviewed, patient examined. Allergies: Coded Allergies: No Known Allergies (Unverified , 01/18/19) Medication History Scheduled Ascorbic Acid (Vitamin C), 500 MG PO BID, (Reported) Docusate Sodium* (Colace*), 100 MG ORAL DAILY, (Reported) Lisinopril (Lisinopril*), 10 MG ORAL DAILY, (Reported) Magnesium Hydroxide* (Milk Of Magnesia*), 30 ML ORAL DAILY, (Reported) Metoprolol Succinate* (Metoprolol Succinate*), 50 MG ORAL DAILY, (Reported) Midodrine (Midodrine HCl), 10 MG ORAL THREE TIMES A DAY, (Reported) Multivitamin With Minerals (Multivitamins With Minerals*), 1 TAB ORAL DAILY, ( Reported) Risperidone* (Risperdal*), 0.5 MG ORAL DAILY, (Reported) Rivaroxaban (Xarelto), 15 MG ORAL DAILY, (Reported) Temazepam (Temazepam*), 15 MG ORAL BEDTIME, (Reported) Scheduled PRN Acetaminophen* (Tylenol*), 325 MG RECTAL Q4H PRN for Mild Pain/Temp > 100.5, ( Reported) Miscellaneous Medications Divalproex Sodium (Divalproex Sodium), 250 MG PO, (Reported) Ferrous Sulfate (Ferrous Sulfate), 325 MG ORAL, (Reported) Patient History Limited by: medical condition History Provided By: Medical Record, PMD Healthcare decision maker Resuscitation status Advanced Directive on File No Past Medical/Surgical History Past Medical/Surgical History: (1) Decubitus skin ulcer (2) Renal insufficiency (3) UTI (urinary tract infection) (4) Dehydration (5) Severe sepsis Review of Systems All Other Systems: negative except mentioned in HPI Physical Exam General Appearance: no apparent distress, confused Lines, tubes and drains: peripheral HEENT: mucous membranes moist Neck: normal inspection Respiratory/Chest: normal breath sounds, no accessory muscle use Cardiovascular/Chest: normal rate Abdomen: soft, no organomegaly, no mass Extremities: other Skin Exam: warm/dry Neurologic: other Last 24 Hour Vital Signs Date Time Temp Pulse Resp B/P (MAP) Pulse Ox O2 Delivery O2 Flow Rate FiO2 02/17/19 12:00 Room Air 02/17/19 12:00 97.7 87 18 110/62 (78) 100 02/17/19 08:12 90 121/68 02/17/19 08:00 Room Air 02/17/19 08:00 98.5 90 18 121/62 (81) 97 02/17/19 04:00 93 02/17/19 04:00 Room Air 02/17/19 04:00 98.2 89 18 131/69 (89) 99 02/17/19 00:00 Room Air 02/17/19 00:00 97.0 71 18 119/74 (89) 99 02/16/19 23:33 68 02/16/19 21:14 84 02/16/19 21:06 87 116/72 02/16/19 20:54 88 02/16/19 20:47 145 141/72 02/16/19 20:00 Room Air 02/16/19 20:00 98.0 102 18 111/84 (93) 98 02/16/19 20:00 98 02/16/19 16:23 Room Air 02/16/19 16:00 97.9 96 21 143/63 (89) 100 02/16/19 15:12 92 Intake and Output 02/16/19 02/17/19 19:00 07:00 Intake Total 100 ml 1309.5 ml Output Total 150 ml Balance -50 ml 1309.5 ml Intake IV Total 100 ml 1309.5 ml Output Urine Total 150 ml # Voids 2 # Bowel Movements 1 Laboratory Tests Test 02/17/19 04:00 White Blood Count 19.7 K/UL (4.8-10.8) H Red Blood Count 3.21 M/UL (4.70-6.10) L Hemoglobin 9.3 G/DL (14.2-18.0) L Hematocrit 29.8 % (42.0-52.0) L Mean Corpuscular Volume 93 FL (80-99) Mean Corpuscular Hemoglobin 29.1 PG (27.0-31.0) Mean Corpuscular Hemoglobin Concent 31.4 G/DL (32.0-36.0) L Red Cell Distribution Width 14.7 % (11.6-14.8) Platelet Count 309 K/UL (150-450) Mean Platelet Volume 5.8 FL (6.5-10.1) L Neutrophils (%) (Auto) % (45.0-75.0) Lymphocytes (%) (Auto) % (20.0-45.0) Monocytes (%) (Auto) % (1.0-10.0) Eosinophils (%) (Auto) % (0.0-3.0) Basophils (%) (Auto) % (0.0-2.0) Differential Total Cells Counted 100 Neutrophils % (Manual) 82 % (45-75) H Lymphocytes % (Manual) 11 % (20-45) L Monocytes % (Manual) 6 % (1-10) Eosinophils % (Manual) 1 % (0-3) Basophils % (Manual) 0 % (0-2) Band Neutrophils 0 % (0-8) Platelet Estimate Adequate Platelet Morphology Normal Anisocytosis 1+ Sodium Level 148 MMOL/L (136-145) H Potassium Level 3.7 MMOL/L (3.5-5.1) Chloride Level 116 MMOL/L (98-107) H Carbon Dioxide Level 24 MMOL/L (21-32) Anion Gap 8 mmol/L (5-15) Blood Urea Nitrogen 24 mg/dL (7-18) H Creatinine 1.5 MG/DL (0.55-1.30) H Estimat Glomerular Filtration Rate mL/min (>60) Glucose Level 105 MG/DL (74-106) # Calcium Level 9.0 MG/DL (8.5-10.1) Total Bilirubin 0.4 MG/DL (0.2-1.0) Aspartate Amino Transf (AST/SGOT) 18 U/L (15-37) Alanine Aminotransferase (ALT/SGPT) 7 U/L (12-78) L Alkaline Phosphatase 59 U/L (46-116) Troponin I 0.039 ng/mL (0.000-0.056) Pro-B-Type Natriuretic Peptide 4511 pg/mL (0-125) H Total Protein 6.3 G/DL (6.4-8.2) L Albumin 1.2 G/DL (3.4-5.0) L Globulin 5.1 g/dL Albumin/Globulin Ratio 0.2 (1.0-2.7) L Thyroid Stimulating Hormone (TSH) 8.528 uiU/mL (0.358-3.740) Height (Feet): 6 Height (Inches): 0.00 Weight (Pounds): 165 Medications Current Medications Medications (Trade) Dose Ordered Sig/Vaughn Route PRN Reason Start Time Stop Time Status Last Admin Dose Admin Dextrose/Sodium Chloride 1,000 ml @ 100 mls/hr Q10H IV 02/16/19 17:30 03/18/19 17:29 02/17/19 04:13 Metoprolol Tartrate (Lopressor) 25 mg Q12HR ORAL 02/16/19 21:00 03/18/19 20:59 02/17/19 08:12 Piperacillin Sod/ Tazobactam Sod 3.375 gm/Sodium Chloride 110 ml @ 27.5 mls/hr EVERY 8 HOURS IVPB 02/16/19 22:00 02/21/19 21:59 02/17/19 13:37 Vancomycin HCl (Vanco rx to dose) 1 ea DAILY PRN MISC Per rx protocol 02/16/19 16:15 03/18/19 16:14 Assessment/Plan Problem List: (1) Renal insufficiency ICD Codes: N28.9 - Disorder of kidney and ureter, unspecified SNOMED: 322513197, 203105994 (2) UTI (urinary tract infection) ICD Codes: N39.0 - Urinary tract infection, site not specified SNOMED: 83788549, 605829143 Qualifiers: Qualified Codes: N39.0 - Urinary tract infection, site not specified (3) Dehydration ICD Codes: E86.0 - Dehydration SNOMED: 40729697, 857089721 (4) Decubitus skin ulcer Assessment & Plan: Pt presented on admission with multiple pressure injuries and ulcerations to lower extremities. Unstageable pressure injury with irregular borders noted to sacrum . Base of wound has 100% mixed slough and necrosis.Edges adherent and dark . Periwound indurated with darker skin tone. Pt complained of pain when minimally palpated. Mild odor noted(L)11.1cm x (W)9cm. Full thickness ulcer R tibia. Base of wound has 100% yellow slough. Edges adherent and flat ,Periwound without erythema or fluctuance.(L)2.5cm x (W)1.5cm. Stable dry eschar noted to R hallux. edges are dark but adherent to base of wound. Periwound dark without erythema or fluctuance.(L)1.5cm x (W)2cm. Stable dry eschar noted to R st metatarsal head. Periwound pale without fluctuance. (L)1.5cm x (W)2.5cm. Stable dry eschar noted to dorsal aspects of R 3rd and 4th metatarsals. Full thickness ulcer lateral R 5th metatarsal. base of wound 50% erythematous 50 % necrotic. Edges are black . No odor or exudate noted(L)1.5cm x (W)1.6cm. Stable dry eschar R heel . Periwound fluctuant without erythema. Pt complained of pain when minimally palpated.(L)3.5cm x (W)5.5cm. Stable dry eschar noted to dorso/flexor L foot. Periwound without erythema , induration or fluctuance (L)2.8cm x (W)1cm. Reabsorbing blood blister noted to medial L foot. Base of wound 25% fluctuant , 75% reabsorbed. Periwound without erythema or fluctuance(L)2cm x (W)3.1cm. L heel is dry and blanchable with historical scarring from previous wounds .Dry flaky skin noted to both feet. Tx.Plan: Swab all wounds both lower ext and feet with Betadine. Cover each wound with Optifoam drsgs every 3 days and prn. Cleanse Sacral wound with Saline. Apply Therahoney. Apply Moisture Barrier Paste periwound. Cover with Optifoam Drsg. Change Daily and prn. APM/PHIL mattress overlay. Reposition at least every 2hours or as tolerated. Off-load heels with pillow. ICD Codes: L89.90 - Pressure ulcer of unspecified site, unspecified stage SNOMED: 135652339 (5) Severe sepsis Assessment & Plan: leukocytosis bacteremia on IV abx DAILY ESTIMATED NEEDS: Needs based on wounds, sepsis 75kg 30-35 kcals/kg 5629-8130 total kcals 1.25-2 g protein/kg 94-150 g total protein 25-30ml/kcal mL/kg 6535-4411 total fluid mLs NUTRITION DIAGNOSIS: 1) Increased kcal/ pro needs r/t wound healing as evidenced by sacral unstageable, Full thickness L tibia wounds, elev WBC, adm w/ hypotension. 2) Swallowing difficulty r/t dysphagia as evidenced by pt on puree texture w/ NTL DETAILER FURNITURE. (CURRENT DIET: Regular puree) PO DIET RECOMMENDATIONS--->>>[place]/ Regular diet (texture per ART DEALER) ADDITIONAL RECOMMENDATIONS: 1) Pt w/ variable recorded wts-> Please obtain a CALIBRATED bed wt EMR:165#, Bed wt: 199#, [place] adm wt: 158 lbs. 2) ART DEALER eval for appropriate texture-> on [place] liquids DETAILER FURNITURE 3) WOUND CARE: Add BRUCE BID Add VIT C 250mg BID + Add MVI w/ min daily Add ZnSO4 220mg daily x10 days 4) Rec added Ensure Enlive BID (350 kcal each) to better meet est needs. ICD Codes: A41.9 - Sepsis, unspecified organism; R65.20 - Severe sepsis without septic shock SNOMED: 12016177 Tawanda Alfaro Feb 17, 2019 13:47
--- NOTE | 2019-02-17 15:30 | Consultation ---
DATE OF CONSULTATION: 02/17/2019 INFECTIOUS DISEASES CONSULTATION CONSULTING PHYSICIAN: Ambrocio Lemon M.D. REFERRING PHYSICIAN: Elmo Mims M.D. REASON FOR CONSULTATION: Leukocytosis. HISTORY OF PRESENTING ILLNESS: This is an 89-year-old gentleman with history of hypertension, dementia, depression who comes in with altered mental status. He was found to have a leukocytosis and an Infectious Diseases consultation has been obtained for antibiotics. PAST MEDICAL HISTORY: 1. History of hypertension. 2. Depression. 3. Dementia. 4. Supraventricular tachycardia. 5. History of renal failure. 6. Schizophrenia. SOCIAL HISTORY: Unknown. FAMILY HISTORY: Unknown. REVIEW OF SYSTEMS: Unable to obtain currently. MEDICATIONS: As an inpatient, the patient is on Zosyn, metoprolol, IV vancomycin. ALLERGIES: No known drug allergies. PHYSICAL EXAMINATION: VITAL SIGNS: Temperature of 98.5, T-max of 100.3, pulse of 90, respiratory rate of 18, blood pressure 121/68, O2 saturation of 97%. HEENT: Pupils equally reactive to light and accommodation. Mouth appears clean. NECK: Supple. No adenopathy. No JVD. CARDIOVASCULAR: Regular rate and rhythm. No murmurs. LUNGS: Clear to auscultation bilaterally. No crackles. No wheezes. ABDOMEN: Soft and nontender. No organomegaly. EXTREMITIES: No cyanosis, no clubbing. Edema noted bilaterally. LABORATORY AND DIAGNOSTIC DATA: White count 19.7, hemoglobin 9.3, hematocrit 29.8, MCV 93, platelet count of 309, neutrophils of 82%. Sodium 148, potassium 3.7, chloride 116, bicarb 24, BUN 24, creatinine 1.5, glucose 105, calcium 9. Total bilirubin 0.4, AST 18, ALT 7, alkaline phosphatase 59. Total protein 6.3. Albumin 1.2. UA showing too numerous to count white cells. Urine cultures from 02/16/2019 growing gram-negative rods. Chest x-ray showing chronic left base density, may be atelectasis or scarring. ASSESSMENT: This is an 89-year-old gentleman with history of schizophrenia, depression, hypertension who comes in with altered mental status and is found to have. 1. Gram-negative urinary tract infection. 2. Leukocytosis. 3. Hypertension. 4. Dementia. PLAN: 1. Continue IV vancomycin, Zosyn for now. 2. We will follow up cultures and adjust antibiotics accordingly. I would like to thank Dr. Mims for this consultation. Ambrocio Lemon M.D. DR: MARYAN JOB#: [id number] CC: Pedrito Mims M.D.; Fax#: [phone]
--- NOTE | 2019-02-17 15:50 | Cardiology Report ---
APPROVED REPORT EKG Measurement Heart [id number] Sinus rhythm with 1st degree AV block Incomplete right bundle branch block Possible Right ventricular hypertrophy Lateral infarct, age undetermined Inferior infarct, age undetermined Abnormal ECG
--- NOTE | 2019-02-17 15:55 | Cardiology Report ---
APPROVED REPORT EKG Measurement Heart [id number] SVT most long atypical atrial flutter with 2-1 AV block Low voltage QRS Right bundle branch block Cannot rule out Anterior infarct, age undetermined Abnormal ECG
[2019-02-17 16:00] VITALS: BP 122/50
[2019-02-17] MEDS: Ascorbic Acid 500mg tab ORAL SCH (17:53)
--- NOTE | 2019-02-17 18:00 | Progress Note ---
DATE: 02/17/2019 SUBJECTIVE: This is an elderly male, currently in bed, opens his eyes, talking few words, slightly confused, doing better. His blood cultures are growing gram-negative rods. OBJECTIVE: VITAL SIGNS: Blood pressure is fine 120/60, pulse 74, respirations 18, no fever. CHEST: Bilateral few crackles. CARDIOVASCULAR: Regular rhythm . ABDOMEN: Soft. Positive bowel sounds. EXTREMITIES: Slightly redness on the sacral area and heel decubitus. GENITOURINARY: Deferred. LABORATORY DATA: White counts are 19,000. ASSESSMENT: 1. Bacteremia. 2. Sepsis. 3. Decubiti. 4. Dementia. 5. Degenerative arthritis. PLAN: We will currently continue IV antibiotic, vancomycin and Zosyn. ID is on consult. We will continue IV fluid. Continue diet and will add boost 3 times a day. Continue wound care. Discussed with the family, daughter yesterday. Pedrito Mims M.D. DR: Chris JOB#: [id number] CC:
[2019-02-17] MEDS ORDERED: METOPROLOL TART50 M1 ORAL (18:24)
[2019-02-17] MEDS ORDERED: MEGACE ORA400 MG/10 PO (18:24)
[2019-02-17] MEDS ORDERED: ACETAMINOPHEN325 M1 ORAL (18:24)
[2019-02-17] MEDS ORDERED: LISINOPRIL10 MG ORAL (18:24)
[2019-02-17] MEDS ORDERED: ZINC SULFATE220 M1 ORAL (18:24)
--- NOTE | 2019-02-17 19:28 | NUR ---
NURSE NOTES: Informed Dr. Mims of patient's bilateral arms swelling 3+. Dr. Mims acknowledged and ordered to discontinued IV fluids, elevate bilateral arms as tolerated, and Lasix 20 mg IV x 1. Orders entered, noted, and carried out. Will continue to monitor patient.
--- NOTE | 2019-02-17 19:28 | NUR ---
NURSE NOTES: RECEIVED PATIENT FROM CELINE MIDDLETON. PT'S DAUGHTER STAYED AT BEDSIDE. PATIENT DENIED PAIN OR CHEST DISCOMFORT AT THIS TIME, RESPIRATION REGULAR, HEART RATE 100-110/HR AT THIS TIME, ABDOMEN SOFT, ON CONDOM CORAL, PERIPHERAL LINE TO RIGHT AC 20G, INTACT AND PATENT, ON D5W 1/2NS AT 100ML/HR, MADE LOWER BED POSITION, PROVIDED CALL LIGHT WITHIN REACH, SZ PRECAUTION, ON BED ALARM, WILL CONTINUE TO MONITOR.
--- NOTE | 2019-02-17 19:30 | NUR ---
HAND-OFF: Report given to CELINE Odonnell.
--- NOTE | 2019-02-17 19:42 | NUR ---
NURSE NOTES: SEEN THE PATIENT BY DR. MOLINA.
[2019-02-17] MEDS ORDERED: Metoprolol 5mg/5ml Inj IVP PRN (19:45)
--- NOTE | 2019-02-17 19:47 | Cardiology Progress Note ---
Assessment/Plan Assessment/Plan 1. Tachycardia. 2. Right bundle-branch left anterior fascicular block. 3. Probable urinary tract infection. 4. Dementia. 5. Questionable history of recent mass in the lungs. 6. History of hypertension. trop neg hi zack showed sinus now tchy will increases the metoprolol dose po bid nto form 25 to 50 mg iv abx free water Subjective ROS Limited/Unobtainable: Yes Objective Last 24 Hour Vital Signs Date Time Temp Pulse Resp B/P (MAP) Pulse Ox O2 Delivery O2 Flow Rate FiO2 02/17/19 16:00 86 02/17/19 16:00 Room Air 02/17/19 16:00 97.5 92 18 122/50 (74) 100 02/17/19 12:17 136 02/17/19 12:00 Room Air 02/17/19 12:00 97.7 87 18 110/62 (78) 100 02/17/19 08:12 90 121/68 02/17/19 08:00 Room Air 02/17/19 08:00 98.5 90 18 121/62 (81) 97 02/17/19 07:52 89 02/17/19 04:00 93 02/17/19 04:00 Room Air 02/17/19 04:00 98.2 89 18 131/69 (89) 99 02/17/19 00:00 Room Air 02/17/19 00:00 97.0 71 18 119/74 (89) 99 02/16/19 23:33 68 02/16/19 21:14 84 02/16/19 21:06 87 116/72 02/16/19 20:54 88 02/16/19 20:47 145 141/72 02/16/19 20:00 Room Air 02/16/19 20:00 98.0 102 18 111/84 (93) 98 02/16/19 20:00 98 General Appearance: no apparent distress, alert Cardiovascular: normal rate, tachycardia Respiratory/Chest: lungs clear Abdomen: normal bowel sounds, non tender, soft Extremities: moderate edema Intake and Output 02/16/19 02/17/19 19:00 07:00 Intake Total 100 ml 1309.5 ml Output Total 150 ml Balance -50 ml 1309.5 ml Intake IV Total 100 ml 1309.5 ml Output Urine Total 150 ml # Voids 2 # Bowel Movements 1 Laboratory Tests Test 02/17/19 04:00 02/17/19 18:05 White Blood Count 19.7 K/UL (4.8-10.8) H Red Blood Count 3.21 M/UL (4.70-6.10) L Hemoglobin 9.3 G/DL (14.2-18.0) L Hematocrit 29.8 % (42.0-52.0) L Mean Corpuscular Volume 93 FL (80-99) Mean Corpuscular Hemoglobin 29.1 PG (27.0-31.0) Mean Corpuscular Hemoglobin Concent 31.4 G/DL (32.0-36.0) L Red Cell Distribution Width 14.7 % (11.6-14.8) Platelet Count 309 K/UL (150-450) Mean Platelet Volume 5.8 FL (6.5-10.1) L Neutrophils (%) (Auto) % (45.0-75.0) Lymphocytes (%) (Auto) % (20.0-45.0) Monocytes (%) (Auto) % (1.0-10.0) Eosinophils (%) (Auto) % (0.0-3.0) Basophils (%) (Auto) % (0.0-2.0) Differential Total Cells Counted 100 Neutrophils % (Manual) 82 % (45-75) H Lymphocytes % (Manual) 11 % (20-45) L Monocytes % (Manual) 6 % (1-10) Eosinophils % (Manual) 1 % (0-3) Basophils % (Manual) 0 % (0-2) Band Neutrophils 0 % (0-8) Platelet Estimate Adequate Platelet Morphology Normal Anisocytosis 1+ Sodium Level 148 MMOL/L (136-145) H Potassium Level 3.7 MMOL/L (3.5-5.1) Chloride Level 116 MMOL/L (98-107) H Carbon Dioxide Level 24 MMOL/L (21-32) Anion Gap 8 mmol/L (5-15) Blood Urea Nitrogen 24 mg/dL (7-18) H Creatinine 1.5 MG/DL (0.55-1.30) H Estimat Glomerular Filtration Rate mL/min (>60) Glucose Level 105 MG/DL (74-106) # Calcium Level 9.0 MG/DL (8.5-10.1) Total Bilirubin 0.4 MG/DL (0.2-1.0) Aspartate Amino Transf (AST/SGOT) 18 U/L (15-37) Alanine Aminotransferase (ALT/SGPT) 7 U/L (12-78) L Alkaline Phosphatase 59 U/L (46-116) Troponin I 0.039 ng/mL (0.000-0.056) Pro-B-Type Natriuretic Peptide 4511 pg/mL (0-125) H Total Protein 6.3 G/DL (6.4-8.2) L Albumin 1.2 G/DL (3.4-5.0) L Globulin 5.1 g/dL Albumin/Globulin Ratio 0.2 (1.0-2.7) L Thyroid Stimulating Hormone (TSH) 8.528 uiU/mL (0.358-3.740) Random Vancomycin Level 10.6 ug/mL Microbiology Date/Time Source Procedure Growth Status 02/16/19 09:55 Blood Blood Culture - Preliminary Resulted 02/16/19 09:55 Blood Blood Culture - Preliminary Resulted 02/16/19 09:55 Urine,Clean Catch Urine Culture - Preliminary Gram Negative Bacillus 1 Resulted 02/16/19 10:37 Rectum Received Luis Alberto Mcleod MD Feb 17, 2019 19:47
[2019-02-17 20:00] VITALS: BP 121/82
[2019-02-17] MEDS ORDERED: Vancomycin 1gm/D5W 275ml IVPB ONE ×2 (20:30)
[2019-02-17] MEDS: Metoprolol Tartrate 50mg tab ORAL SCH (21:00)
--- NOTE | 2019-02-17 22:00 | NUR ---
NURSE NOTES: PATIENT ASLEEP STATUS, NO PAIN OR DISTRESS NOTED AT THIS TIME.
[2019-02-18] VITALS: BP 120/71
--- NOTE | 2019-02-18 00:10 | NUR ---
NURSE NOTES: PATIENT DENIED CP OR DISCOMFORT, HEART RATE 140-145/MIN NOTED, WILL CONTINUE TO MONITOR.
--- NOTE | 2019-02-18 03:00 | NUR ---
NURSE NOTES: MORNING CARE WAS DONE, NO BOWEL MOVEMENT.
[2019-02-18 04:00] VITALS: BP 119/69
[2019-02-18] MEDS: Piperacillin/Tazobactam 3.375 GM in NS 110 ML IVPB SCH ×3 (05:47→21:39)
--- NOTE | 2019-02-18 06:00 | NUR ---
NURSE NOTES: NO PAIN OR DISTRESS NOTED AT THIS TIME.
[2019-02-18 06:26] LABS: INR 1.1 (0.9-1.1)
[2019-02-18 06:32] LABS: ALANINE AMINOTRANSFERASE < 6 U/L (12-78); ALBUMIN/GLOBULIN RATIO 0.2 (1.0-2.7); ALKALINE PHOSPHATASE 56 U/L (46-116); ANION GAP 9 mmol/L (5-15); ASPARTATE AMINO TRANSFERASE 19 U/L (15-37); BILIRUBIN,TOTAL 0.4 MG/DL (0.2-1.0); BLOOD UREA NITROGEN 24 mg/dL (7-18); CALCIUM 8.9 MG/DL (8.5-10.1); CARBON DIOXIDE 23 MMOL/L (21-32); CHLORIDE 115 MMOL/L (98-107); CREATININE 1.5 MG/DL (0.55-1.30); POTASSIUM 3.4 MMOL/L (3.5-5.1); SODIUM 147 MMOL/L (136-145)
--- NOTE | 2019-02-18 07:15 | NUR ---
HAND-OFF: Report given to CELINE MORALES.
--- NOTE | 2019-02-18 07:29 | NUR ---
NURSE NOTES: Report received from CELINE Odonnell. Observed patient in bed sleeping. Arousable by voice and touching, verbally responsive with period of confusion and anxious. No distress noted in room air. No s/s of pain at this time. IV site intact and patent. Side rails padded for seizure precaution. Bed in lowest position. Call light within reach. Will continue to monitor.
--- NOTE | 2019-02-18 07:44 | NUR ---
NURSE NOTES: Called and left message to Dr. Mims regarding low potassium level. Awaiting for call back.
[2019-02-18 08:00] VITALS: BP 117/43
[2019-02-18 08:18] LABS: BASOPHILS % (AUTO) 0.2 % (0.0-2.0); EOSINOPHILS % (AUTO) 0.2 % (0.0-3.0); HEMATOCRIT 27.7 % (42.0-52.0); HEMOGLOBIN 8.7 G/DL (14.2-18.0); LYMPHOCYTES % (AUTO) 9.5 % (20.0-45.0); MEAN CORPUSCULAR VOLUME 93 FL (80-99); MONOCYTES % (AUTO) 5.7 % (1.0-10.0); NEUTROPHILS % (AUTO) 84.4 % (45.0-75.0); PLATELET COUNT 252 K/UL (150-450); RED BLOOD COUNT 2.99 M/UL (4.70-6.10); RED CELL DISTRIBUTION WIDTH 14.6 % (11.6-14.8); WHITE BLOOD COUNT 15.5 K/UL (4.8-10.8)
--- NOTE | 2019-02-18 08:25 | NUR ---
NURSE NOTES: Called back from Dr. Mims regarding low potassium level with new order. Order carried out.
[2019-02-18] MEDS ORDERED: Zinc Sulfate 220mg cap ORAL SCH (09:00)
[2019-02-18] MEDS: Ascorbic Acid 500mg tab ORAL SCH ×2 (09:02→17:35)
[2019-02-18] MEDS: Metoprolol Tartrate 50mg tab ORAL SCH ×2 (09:02→21:35)
--- NOTE | 2019-02-18 10:05 | Hematology/Onc Progress Note ---
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 Favor scarring, but the possibility of neoplasm cannot be ruled out. 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, r/o mets --> at this time, patient is on pressors so hold off on diagnosis until more stable --> at some point will need a tissue diagnosis, as well as further w/u --> given advanced age, hold off on any extensive immediate care --> pulm has been consulted as well, is on xarelto # DVT history as well as Pulmonary embolism could be related to mass/malignacy * HYPERCOAGULABLE DISORDER* --> on xarelto, okay when stable to dc to snf on this --> APTT 59--> 67 --> INR 1.1 (01/21) # Leukocytosis is 2/2 septic shock with uti --> has been started on abx for bacteremia (on vanc/zosyn) --> further w/u for altered mental status --> wbc 14-->19.7 #. Iron Overload --> Ferrtin 1327 continue to monitor consider chelation therapy prior to blood tx. --> oFF iv iron # Renal insufficiency --> as per renal recs # Respiratory failure is on nc/bipap --> per pulm # Hypotension on fluids now better The timing of this note does not necessarily reflect the time of the patient was seen. GREATLY APPRECIATE CONSULTATION. Subjective Constitutional: Denies: no symptoms, chills, fever, malaise, weakness, other HEENT: Denies: no symptoms, eye pain, blurred vision, tearing, double vision, ear pain, ear discharge, nose pain, nose congestion, throat pain, throat swelling, mouth pain, mouth swelling, other Cardiovascular: Denies: no symptoms, chest pain, edema, irregular heart rate, lightheadedness, palpitations, syncope, other Respiratory: Denies: no symptoms, cough, shortness of breath, SOB with excertion, SOB at rest, sputum, wheezing, other Gastrointestinal/Abdominal: Denies: no symptoms, abdomen distended, abdominal pain, black stools, tarry stools, blood in stool, constipated, diarrhea, difficulty swallowing, nausea, poor appetite, poor fluid intake, rectal bleeding , vomiting, other Genitourinary: Denies: no symptoms, burning, discharge, frequency, flank pain, hematuria, incontinence, pain, urgency, other Neurologic/Psychiatric: Denies: no symptoms, anxiety, depressed, emotional problems, headache, numbness, paresthesia, pre-existing deficit, seizure, tingling, tremors, weakness, other Endocrine: Denies: no symptoms, excessive sweating, flushing, intolerance to cold, intolerance to heat, increased hunger, increased thirst, increased urine, unexplained weight gain, unexplained weight loss, other Hematologic/Lymphatic: Denies: no symptoms, anemia, easy bleeding, easy bruising, adenopathy, other Allergies: Coded Allergies: No Known Allergies (Unverified , 01/18/19) Subjective 02/18: no events, no f/c, no night sweats reported, labs have been reviewed Objective Objective Current Medications Medications (Trade) Dose Ordered Sig/Vaughn Route PRN Reason Start Time Stop Time Status Last Admin Dose Admin Ascorbic Acid (Vitamin C) 250 mg TWICE A DAY ORAL 02/17/19 18:00 03/19/19 17:59 02/18/19 09:02 Metoprolol Tartrate (Lopressor) 2.5 mg Q6H PRN IVP HR > 140 BPM 02/17/19 19:45 03/19/19 19:44 02/17/19 19:51 Metoprolol Tartrate (Lopressor) 50 mg Q12HR ORAL 02/17/19 21:00 03/19/19 20:59 02/18/19 09:02 Multivitamins (Multivitamins) 1 tab DAILY ORAL 02/18/19 09:00 03/20/19 08:59 02/18/19 09:02 Piperacillin Sod/ Tazobactam Sod 3.375 gm/Sodium Chloride 110 ml @ 27.5 mls/hr EVERY 8 HOURS IVPB 02/16/19 22:00 02/21/19 21:59 02/18/19 05:47 Vancomycin HCl (Vanco rx to dose) 1 ea DAILY PRN MISC Per rx protocol 02/16/19 16:15 03/18/19 16:14 Zinc Sulfate (Zinc Sulfate) 220 mg DAILY ORAL 02/18/19 09:00 02/28/19 08:59 02/18/19 09:02 Last 24 Hour Vital Signs Date Time Temp Pulse Resp B/P (MAP) Pulse Ox O2 Delivery O2 Flow Rate FiO2 02/18/19 09:02 77 117/43 02/18/19 08:00 Room Air 02/18/19 08:00 129 02/18/19 08:00 98.1 77 22 117/43 (67) 98 02/18/19 04:00 98.6 66 24 119/69 (86) 97 02/18/19 04:00 Room Air 02/18/19 04:00 62 02/18/19 00:00 98.5 88 24 120/71 (87) 100 02/18/19 00:00 Room Air 02/18/19 00:00 87 02/17/19 21:00 101 82/40 02/17/19 20:00 99.2 120 24 121/82 (95) 100 02/17/19 20:00 Room Air 02/17/19 20:00 159 02/17/19 19:51 141 121/82 02/17/19 16:00 86 02/17/19 16:00 Room Air 02/17/19 16:00 97.5 92 18 122/50 (74) 100 02/17/19 12:17 136 02/17/19 12:00 Room Air 02/17/19 12:00 97.7 87 18 110/62 (78) 100 02/17/19 08:12 90 121/68 02/17/19 08:00 Room Air 02/17/19 08:00 98.5 90 18 121/62 (81) 97 02/17/19 07:52 89 02/17/19 04:00 93 02/17/19 04:00 Room Air 02/17/19 04:00 98.2 89 18 131/69 (89) 99 02/17/19 00:00 Room Air 02/17/19 00:00 97.0 71 18 119/74 (89) 99 02/16/19 23:33 68 02/16/19 21:14 84 02/16/19 21:06 87 116/72 02/16/19 20:54 88 02/16/19 20:47 145 141/72 02/16/19 20:00 Room Air 02/16/19 20:00 98.0 102 18 111/84 (93) 98 02/16/19 20:00 98 02/16/19 16:23 Room Air 02/16/19 16:00 97.9 96 21 143/63 (89) 100 02/16/19 15:12 92 02/16/19 13:30 97.7 94 18 138/60 (86) 99 02/16/19 12:56 99.4 82 18 120/45 100 Room Air 02/16/19 12:55 99.4 91 23 110/55 100 Room Air 02/16/19 12:01 99.4 02/16/19 11:26 100.3 91 23 110/55 100 Room Air 02/16/19 10:34 99 17 Room Air 02/16/19 10:31 100.3 99 17 83/59 98 Room Air Intake and Output 02/17/19 02/18/19 18:59 06:59 Intake Total 100 ml 591.5 ml Output Total 300 ml Balance 100 ml 291.5 ml Intake Oral 200 ml IV Total 100 ml 391.5 ml Output Urine Total 300 ml # Voids 2 2 # Bowel Movements 1 Labs Test 02/16/19 09:55 02/16/19 11:10 02/17/19 04:00 02/17/19 18:05 White Blood Count 14.6 K/UL (4.8-10.8) 19.7 K/UL (4.8-10.8) Red Blood Count 3.35 M/UL (4.70-6.10) 3.21 M/UL (4.70-6.10) Hemoglobin 9.6 G/DL (14.2-18.0) 9.3 G/DL (14.2-18.0) Hematocrit 31.9 % (42.0-52.0) 29.8 % (42.0-52.0) Mean Corpuscular Volume 95 FL (80-99) 93 FL (80-99) Mean Corpuscular Hemoglobin 28.6 PG (27.0-31.0) 29.1 PG (27.0-31.0) Mean Corpuscular Hemoglobin Concent 30.2 G/DL (32.0-36.0) 31.4 G/DL (32.0-36.0) Red Cell Distribution Width 15.2 % (11.6-14.8) 14.7 % (11.6-14.8) Platelet Count 333 K/UL (150-450) 309 K/UL (150-450) Mean Platelet Volume 5.6 FL (6.5-10.1) 5.8 FL (6.5-10.1) Neutrophils (%) (Auto) 82.2 % (45.0-75.0) % (45.0-75.0) Lymphocytes (%) (Auto) 12.8 % (20.0-45.0) % (20.0-45.0) Monocytes (%) (Auto) 4.5 % (1.0-10.0) % (1.0-10.0) Eosinophils (%) (Auto) 0.1 % (0.0-3.0) % (0.0-3.0) Basophils (%) (Auto) 0.3 % (0.0-2.0) % (0.0-2.0) Urine Color Yellow Urine Appearance Slightly cloudy Urine pH 6 (4.5-8.0) Urine Specific [place] 1.010 (1.005-1.035) Urine Protein 3+ (NEGATIVE) Urine Glucose (UA) Negative (NEGATIVE) Urine Ketones Negative (NEGATIVE) Urine Blood 5+ (NEGATIVE) Urine Nitrite Positive (NEGATIVE) Urine Bilirubin Negative (NEGATIVE) Urine Urobilinogen 1 MG/DL (0.0-1.0) Urine Leukocyte Esterase 3+ (NEGATIVE) Urine RBC Tntc /HPF (0 - 0) Urine WBC Tntc /HPF (0 - 0) Urine Squamous Epithelial Cells Occasional /LPF Urine Bacteria Many /HPF (NONE) Sodium Level 147 MMOL/L (136-145) 148 MMOL/L (136-145) Potassium Level 4.0 MMOL/L (3.5-5.1) 3.7 MMOL/L (3.5-5.1) Chloride Level 114 MMOL/L (98-107) 116 MMOL/L (98-107) Carbon Dioxide Level 24 MMOL/L (21-32) 24 MMOL/L (21-32) Anion Gap 9 mmol/L (5-15) 8 mmol/L (5-15) Blood Urea Nitrogen 27 mg/dL (7-18) 24 mg/dL (7-18) Creatinine 1.6 MG/DL (0.55-1.30) 1.5 MG/DL (0.55-1.30) Estimat Glomerular Filtration Rate mL/min (>60) mL/min (>60) Glucose Level 206 MG/DL (74-106) 105 MG/DL (74-106) Lactic Acid Level 5.40 mmol/L (0.4-2.0) 3.50 mmol/L (0.66-2.22) Calcium Level 9.1 MG/DL (8.5-10.1) 9.0 MG/DL (8.5-10.1) Total Bilirubin 0.3 MG/DL (0.2-1.0) 0.4 MG/DL (0.2-1.0) Aspartate Amino Transf (AST/SGOT) 20 U/L (15-37) 18 U/L (15-37) Alanine Aminotransferase (ALT/SGPT) 8 U/L (12-78) 7 U/L (12-78) Alkaline Phosphatase 59 U/L (46-116) 59 U/L (46-116) Total Creatine Kinase 52 U/L (26-308) Creatine Kinase MB 0.6 NG/ML (0.0-3.6) Creatine Kinase MB Relative Index 1.1 Troponin I 0.034 ng/mL (0.000-0.056) 0.039 ng/mL (0.000-0.056) Pro-B-Type Natriuretic Peptide 2556 pg/mL (0-125) 4511 pg/mL (0-125) Total Protein 6.6 G/DL (6.4-8.2) 6.3 G/DL (6.4-8.2) Albumin 1.2 G/DL (3.4-5.0) 1.2 G/DL (3.4-5.0) Globulin 5.4 g/dL 5.1 g/dL Albumin/Globulin Ratio 0.2 (1.0-2.7) 0.2 (1.0-2.7) Differential Total Cells Counted 100 Neutrophils % (Manual) 82 % (45-75) Lymphocytes % (Manual) 11 % (20-45) Monocytes % (Manual) 6 % (1-10) Eosinophils % (Manual) 1 % (0-3) Basophils % (Manual) 0 % (0-2) Band Neutrophils 0 % (0-8) Platelet Estimate Adequate Platelet Morphology Normal Anisocytosis 1+ Thyroid Stimulating Hormone (TSH) 8.528 uiU/mL (0.358-3.740) Random Vancomycin Level 10.6 ug/mL Test 02/18/19 04:53 White Blood Count 15.5 K/UL (4.8-10.8) Red Blood Count 2.99 M/UL (4.70-6.10) Hemoglobin 8.7 G/DL (14.2-18.0) Hematocrit 27.7 % (42.0-52.0) Mean Corpuscular Volume 93 FL (80-99) Mean Corpuscular Hemoglobin 29.2 PG (27.0-31.0) Mean Corpuscular Hemoglobin Concent 31.5 G/DL (32.0-36.0) Red Cell Distribution Width 14.6 % (11.6-14.8) Platelet Count 252 K/UL (150-450) Mean Platelet Volume 5.2 FL (6.5-10.1) Neutrophils (%) (Auto) 84.4 % (45.0-75.0) Lymphocytes (%) (Auto) 9.5 % (20.0-45.0) Monocytes (%) (Auto) 5.7 % (1.0-10.0) Eosinophils (%) (Auto) 0.2 % (0.0-3.0) Basophils (%) (Auto) 0.2 % (0.0-2.0) Erythrocyte Sedimentation Rate 126 MM/HR (0-20) Prothrombin Time 11.2 SEC (9.30-11.50) Prothromb Time International Ratio 1.1 (0.9-1.1) Activated Partial Thromboplast Time 24 SEC (23-33) Sodium Level 147 MMOL/L (136-145) Potassium Level 3.4 MMOL/L (3.5-5.1) Chloride Level 115 MMOL/L (98-107) Carbon Dioxide Level 23 MMOL/L (21-32) Anion Gap 9 mmol/L (5-15) Blood Urea Nitrogen 24 mg/dL (7-18) Creatinine 1.5 MG/DL (0.55-1.30) Estimat Glomerular Filtration Rate mL/min (>60) Glucose Level 105 MG/DL (74-106) Calcium Level 8.9 MG/DL (8.5-10.1) Total Bilirubin 0.4 MG/DL (0.2-1.0) Aspartate Amino Transf (AST/SGOT) 19 U/L (15-37) Alanine Aminotransferase (ALT/SGPT) < 6 U/L (12-78) Alkaline Phosphatase 56 U/L (46-116) C-Reactive Protein, Quantitative 30.2 mg/dL (0.00-0.90) Total Protein 6.0 G/DL (6.4-8.2) Albumin 1.0 G/DL (3.4-5.0) Globulin 5.0 g/dL Albumin/Globulin Ratio 0.2 (1.0-2.7) Lipase 36 U/L (73-393) Height (Feet): 6 Height (Inches): 0.00 Weight (Pounds): 165 Objective PE General: severe distress, chronically Ill ENT: moist mucus membranes Neck: limited range of motion Respiratory: respiratory distress, rhonchi++ noted, nc Cardiovascular: RRr, no mgr Gastrointestinal: normal inspection, soft Msk: normal inspection Neuro: responsive, motor weakness Psychiatric: depressed affect Skin: no rash Jake Womack MD Feb 18, 2019 10:05
--- NOTE | 2019-02-18 10:57 | Infectious Diseases Prog Note ---
Assessment/Plan Assessment/Plan A: 1. E.coli ESBL and gram-negative urinary tract infection. 2. Staph aureus sepsis 3. Hypertension. 4. Dementia. 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 Continue IV vancomycin, Zosyn for now. 2. We will follow up cultures and adjust antibiotics accordingly. 3. will f/u echocardiogram report Subjective ROS Limited/Unobtainable: Yes Constitutional: Denies: fever Allergies: Coded Allergies: No Known Allergies (Unverified , 01/18/19) Objective Vital Signs Last 24 Hour Vital Signs Date Time Temp Pulse Resp B/P (MAP) Pulse Ox O2 Delivery O2 Flow Rate FiO2 02/18/19 09:02 77 117/43 02/18/19 08:00 Room Air 02/18/19 08:00 129 02/18/19 08:00 98.1 77 22 117/43 (67) 98 02/18/19 04:00 98.6 66 24 119/69 (86) 97 02/18/19 04:00 Room Air 02/18/19 04:00 62 02/18/19 00:00 98.5 88 24 120/71 (87) 100 02/18/19 00:00 Room Air 02/18/19 00:00 87 02/17/19 21:00 101 82/40 02/17/19 20:00 99.2 120 24 121/82 (95) 100 02/17/19 20:00 Room Air 02/17/19 20:00 159 02/17/19 19:51 141 121/82 02/17/19 16:00 86 02/17/19 16:00 Room Air 02/17/19 16:00 97.5 92 18 122/50 (74) 100 02/17/19 12:17 136 02/17/19 12:00 Room Air 02/17/19 12:00 97.7 87 18 110/62 (78) 100 Height (Feet): 6 Height (Inches): 0.00 Weight (Pounds): 165 HEENT: mucous membranes moist Respiratory/Chest: lungs clear Cardiovascular: normal rate Abdomen: soft, non tender Extremities: no edema Skin: ulcers Neurologic/Psychiatric: alert, responsive Microbiology Date/Time Source Procedure Growth Status 02/16/19 09:55 Blood Blood Culture - Preliminary Staphylococcus Aureus Resulted 02/16/19 09:55 Blood Blood Culture - Preliminary Staphylococcus Aureus Resulted 02/16/19 10:37 Nasal Nares MRSA Culture - Final Staphylococcus Aureus - Mrsa Complete 02/16/19 09:55 Urine,Clean Catch Urine Culture - Preliminary Escherichia Coli - Esbl Gram Negative Bacillus 2 Resulted 02/16/19 10:37 Rectum VRE Culture - Final Enterococcus Faecium - Vre Complete Laboratory Tests Test 02/17/19 18:05 02/18/19 04:53 Random Vancomycin Level 10.6 ug/mL White Blood Count 15.5 K/UL (4.8-10.8) H Red Blood Count 2.99 M/UL (4.70-6.10) L Hemoglobin 8.7 G/DL (14.2-18.0) L Hematocrit 27.7 % (42.0-52.0) L Mean Corpuscular Volume 93 FL (80-99) Mean Corpuscular Hemoglobin 29.2 PG (27.0-31.0) Mean Corpuscular Hemoglobin Concent 31.5 G/DL (32.0-36.0) L Red Cell Distribution Width 14.6 % (11.6-14.8) Platelet Count 252 K/UL (150-450) Mean Platelet Volume 5.2 FL (6.5-10.1) L Neutrophils (%) (Auto) 84.4 % (45.0-75.0) H Lymphocytes (%) (Auto) 9.5 % (20.0-45.0) L Monocytes (%) (Auto) 5.7 % (1.0-10.0) Eosinophils (%) (Auto) 0.2 % (0.0-3.0) Basophils (%) (Auto) 0.2 % (0.0-2.0) Erythrocyte Sedimentation Rate 126 MM/HR (0-20) H Prothrombin Time 11.2 SEC (9.30-11.50) Prothromb Time International Ratio 1.1 (0.9-1.1) Activated Partial Thromboplast Time 24 SEC (23-33) Sodium Level 147 MMOL/L (136-145) H Potassium Level 3.4 MMOL/L (3.5-5.1) L Chloride Level 115 MMOL/L (98-107) H Carbon Dioxide Level 23 MMOL/L (21-32) Anion Gap 9 mmol/L (5-15) Blood Urea Nitrogen 24 mg/dL (7-18) H Creatinine 1.5 MG/DL (0.55-1.30) H Estimat Glomerular Filtration Rate mL/min (>60) Glucose Level 105 MG/DL (74-106) Calcium Level 8.9 MG/DL (8.5-10.1) Total Bilirubin 0.4 MG/DL (0.2-1.0) Aspartate Amino Transf (AST/SGOT) 19 U/L (15-37) Alanine Aminotransferase (ALT/SGPT) < 6 U/L (12-78) L Alkaline Phosphatase 56 U/L (46-116) C-Reactive Protein, Quantitative 30.2 mg/dL (0.00-0.90) H Total Protein 6.0 G/DL (6.4-8.2) L Albumin 1.0 G/DL (3.4-5.0) L Globulin 5.0 g/dL Albumin/Globulin Ratio 0.2 (1.0-2.7) L Lipase 36 U/L (73-393) L Current Medications Medications (Trade) Dose Ordered Sig/Vaughn Route PRN Reason Start Time Stop Time Status Last Admin Dose Admin Ascorbic Acid (Vitamin C) 250 mg TWICE A DAY ORAL 02/17/19 18:00 03/19/19 17:59 02/18/19 09:02 Metoprolol Tartrate (Lopressor) 2.5 mg Q6H PRN IVP HR > 140 BPM 02/17/19 19:45 03/19/19 19:44 02/17/19 19:51 Metoprolol Tartrate (Lopressor) 50 mg Q12HR ORAL 02/17/19 21:00 03/19/19 20:59 02/18/19 09:02 Multivitamins (Multivitamins) 1 tab DAILY ORAL 02/18/19 09:00 03/20/19 08:59 02/18/19 09:02 Piperacillin Sod/ Tazobactam Sod 3.375 gm/Sodium Chloride 110 ml @ 27.5 mls/hr EVERY 8 HOURS IVPB 02/16/19 22:00 02/21/19 21:59 02/18/19 05:47 Vancomycin HCl (Vanco rx to dose) 1 ea DAILY PRN MISC Per rx protocol 02/16/19 16:15 03/18/19 16:14 Zinc Sulfate (Zinc Sulfate) 220 mg DAILY ORAL 02/18/19 09:00 02/28/19 08:59 02/18/19 09:02 Isaac Martinez MD Feb 18, 2019 10:57
--- NOTE | 2019-02-18 11:31 | Surgery Progress Note ---
Surgery Progress Note Subjective Additional Comments leukocytosis 15k labs noted exam stable Objective Last 24 Hour Vital Signs Date Time Temp Pulse Resp B/P (MAP) Pulse Ox O2 Delivery O2 Flow Rate FiO2 02/18/19 09:02 77 117/43 02/18/19 08:00 Room Air 02/18/19 08:00 129 02/18/19 08:00 98.1 77 22 117/43 (67) 98 02/18/19 04:00 98.6 66 24 119/69 (86) 97 02/18/19 04:00 Room Air 02/18/19 04:00 62 02/18/19 00:00 98.5 88 24 120/71 (87) 100 02/18/19 00:00 Room Air 02/18/19 00:00 87 02/17/19 21:00 101 82/40 02/17/19 20:00 99.2 120 24 121/82 (95) 100 02/17/19 20:00 Room Air 02/17/19 20:00 159 02/17/19 19:51 141 121/82 02/17/19 16:00 86 02/17/19 16:00 Room Air 02/17/19 16:00 97.5 92 18 122/50 (74) 100 02/17/19 12:17 136 02/17/19 12:00 Room Air 02/17/19 12:00 97.7 87 18 110/62 (78) 100 I&O Intake and Output 02/17/19 02/18/19 18:59 06:59 Intake Total 100 ml 591.5 ml Output Total 300 ml Balance 100 ml 291.5 ml Intake Oral 200 ml IV Total 100 ml 391.5 ml Output Urine Total 300 ml # Voids 2 2 # Bowel Movements 1 Dressing: saturated Wound: clean Cardiovascular: RSR Respiratory: clear Abdomen: soft, non-tender, present bowel sounds, non-distended Extremities: no cyanosis, other Laboratory Tests Test 02/17/19 18:05 02/18/19 04:53 Random Vancomycin Level 10.6 ug/mL White Blood Count 15.5 K/UL (4.8-10.8) H Red Blood Count 2.99 M/UL (4.70-6.10) L Hemoglobin 8.7 G/DL (14.2-18.0) L Hematocrit 27.7 % (42.0-52.0) L Mean Corpuscular Volume 93 FL (80-99) Mean Corpuscular Hemoglobin 29.2 PG (27.0-31.0) Mean Corpuscular Hemoglobin Concent 31.5 G/DL (32.0-36.0) L Red Cell Distribution Width 14.6 % (11.6-14.8) Platelet Count 252 K/UL (150-450) Mean Platelet Volume 5.2 FL (6.5-10.1) L Neutrophils (%) (Auto) 84.4 % (45.0-75.0) H Lymphocytes (%) (Auto) 9.5 % (20.0-45.0) L Monocytes (%) (Auto) 5.7 % (1.0-10.0) Eosinophils (%) (Auto) 0.2 % (0.0-3.0) Basophils (%) (Auto) 0.2 % (0.0-2.0) Erythrocyte Sedimentation Rate 126 MM/HR (0-20) H Prothrombin Time 11.2 SEC (9.30-11.50) Prothromb Time International Ratio 1.1 (0.9-1.1) Activated Partial Thromboplast Time 24 SEC (23-33) Sodium Level 147 MMOL/L (136-145) H Potassium Level 3.4 MMOL/L (3.5-5.1) L Chloride Level 115 MMOL/L (98-107) H Carbon Dioxide Level 23 MMOL/L (21-32) Anion Gap 9 mmol/L (5-15) Blood Urea Nitrogen 24 mg/dL (7-18) H Creatinine 1.5 MG/DL (0.55-1.30) H Estimat Glomerular Filtration Rate mL/min (>60) Glucose Level 105 MG/DL (74-106) Calcium Level 8.9 MG/DL (8.5-10.1) Total Bilirubin 0.4 MG/DL (0.2-1.0) Aspartate Amino Transf (AST/SGOT) 19 U/L (15-37) Alanine Aminotransferase (ALT/SGPT) < 6 U/L (12-78) L Alkaline Phosphatase 56 U/L (46-116) C-Reactive Protein, Quantitative 30.2 mg/dL (0.00-0.90) H Total Protein 6.0 G/DL (6.4-8.2) L Albumin 1.0 G/DL (3.4-5.0) L Globulin 5.0 g/dL Albumin/Globulin Ratio 0.2 (1.0-2.7) L Lipase 36 U/L (73-393) L Plan Problems: (1) Renal insufficiency (2) UTI (urinary tract infection) (3) Dehydration (4) Decubitus skin ulcer Assessment & Plan: Pt presented on admission with multiple pressure injuries and ulcerations to lower extremities. Unstageable pressure injury with irregular borders noted to sacrum . Base of wound has 100% mixed slough and necrosis.Edges adherent and dark . Periwound indurated with darker skin tone. Pt complained of pain when minimally palpated. Mild odor noted(L)11.1cm x (W)9cm. Full thickness ulcer R tibia. Base of wound has 100% yellow slough. Edges adherent and flat ,Periwound without erythema or fluctuance.(L)2.5cm x (W)1.5cm. Stable dry eschar noted to R hallux. edges are dark but adherent to base of wound. Periwound dark without erythema or fluctuance.(L)1.5cm x (W)2cm. Stable dry eschar noted to R st metatarsal head. Periwound pale without fluctuance. (L)1.5cm x (W)2.5cm. Stable dry eschar noted to dorsal aspects of R 3rd and 4th metatarsals. Full thickness ulcer lateral R 5th metatarsal. base of wound 50% erythematous 50 % necrotic. Edges are black . No odor or exudate noted(L)1.5cm x (W)1.6cm. Stable dry eschar R heel . Periwound fluctuant without erythema. Pt complained of pain when minimally palpated.(L)3.5cm x (W)5.5cm. Stable dry eschar noted to dorso/flexor L foot. Periwound without erythema , induration or fluctuance (L)2.8cm x (W)1cm. Reabsorbing blood blister noted to medial L foot. Base of wound 25% fluctuant , 75% reabsorbed. Periwound without erythema or fluctuance(L)2cm x (W)3.1cm. L heel is dry and blanchable with historical scarring from previous wounds .Dry flaky skin noted to both feet. Tx.Plan: Swab all wounds both lower ext and feet with Betadine. Cover each wound with Optifoam drsgs every 3 days and prn. Cleanse Sacral wound with Saline. Apply Therahoney. Apply Moisture Barrier Paste periwound. Cover with Optifoam Drsg. Change Daily and prn. APM/PHIL mattress overlay. Reposition at least every 2hours or as tolerated. Off-load heels with pillow. (5) Severe sepsis Assessment & Plan: leukocytosis bacteremia on IV abx DAILY ESTIMATED NEEDS: Needs based on wounds, sepsis 75kg 30-35 kcals/kg [id number] total kcals 1.25-2 g protein/kg 94-150 g total protein 25-30ml/kcal mL/kg 2537-0503 total fluid mLs NUTRITION DIAGNOSIS: 1) Increased kcal/ pro needs r/t wound healing as evidenced by sacral unstageable, Full thickness L tibia wounds, elev WBC, adm w/ hypotension. 2) Swallowing difficulty r/t dysphagia as evidenced by pt on puree texture w/ NTL [employer]ILROAD [employer]PER[employer]. (CURRENT DIET: Regular puree) PO DIET RECOMMENDATIONS--->>>[place]/ Regular diet (texture per JOB SPOTTER) ADDITIONAL RECOMMENDATIONS: 1) Pt w/ variable recorded wts-> Please obtain a CALIBRATED bed wt EMR:165#, Bed wt: 199#, [place] adm wt: 158 lbs. 2) JOB SPOTTER eval for appropriate texture-> on [place] liquids [employer]RO[employer]PER[employer] 3) WOUND CARE: Add BRUCE BID Add VIT C 250mg BID + Add MVI w/ min daily Add ZnSO4 220mg daily x10 days 4) Rec added Ensure Enlive BID (350 kcal each) to better meet est needs. Tawanda Alfaro Feb 18, 2019 11:31
[2019-02-18 12:00] VITALS: BP 137/48
--- NOTE | 2019-02-18 13:50 | NUR ---
HAND-OFF: Report given to CELINE Cullen. Stable condition.
--- NOTE | 2019-02-18 14:00 | NUR ---
NURSE NOTES: Received report from Melanie Olivas. Patient transfered from [facility]. Patient awake oriented to self. VSS. Initial assessment done. Patient denies pain or discomfort. Oriented to room. safety precautions in place. Side rails X2 up, bed locked, call rivers within reached. Will monitor.
--- NOTE | 2019-02-18 14:38 | Cardiology Progress Note ---
Assessment/Plan Assessment/Plan had episode of SVT this am, now in sinus rhythm continue metoprolol PO, not clear if the patient can swallow will follow K and Mg level, d/w nurse Subjective Subjective The patient is demented and cannot give history, daughter and at the bedside, trying to feed him Objective Last 24 Hour Vital Signs Date Time Temp Pulse Resp B/P (MAP) Pulse Ox O2 Delivery O2 Flow Rate FiO2 02/18/19 12:00 63 02/18/19 12:00 97.9 68 20 137/48 (77) 100 02/18/19 11:47 Room Air 02/18/19 09:02 77 117/43 02/18/19 08:00 Room Air 02/18/19 08:00 129 02/18/19 08:00 98.1 77 22 117/43 (67) 98 02/18/19 04:00 98.6 66 24 119/69 (86) 97 02/18/19 04:00 Room Air 02/18/19 04:00 62 02/18/19 00:00 98.5 88 24 120/71 (87) 100 02/18/19 00:00 Room Air 02/18/19 00:00 87 02/17/19 21:00 101 82/40 02/17/19 20:00 99.2 120 24 121/82 (95) 100 02/17/19 20:00 Room Air 02/17/19 20:00 159 02/17/19 19:51 141 121/82 02/17/19 16:00 86 02/17/19 16:00 Room Air 02/17/19 16:00 97.5 92 18 122/50 (74) 100 General Appearance: lethargic, other - demented EENT: PERRL/EOMI Neck: JVD Rhythm: NSR, SVT Cardiovascular: normal rate, systolic murmur Respiratory/Chest: rhonchi - bilaterally Abdomen: soft, tender Extremities: other - contracted Intake and Output 02/17/19 02/18/19 19:00 07:00 Intake Total 619.0 ml Output Total 300 ml Balance 319.0 ml Intake Oral 200 ml IV Total 419.0 ml Output Urine Total 300 ml # Voids 2 2 # Bowel Movements 1 Laboratory Tests Test 02/17/19 18:05 02/18/19 04:53 Random Vancomycin Level 10.6 ug/mL White Blood Count 15.5 K/UL (4.8-10.8) H Red Blood Count 2.99 M/UL (4.70-6.10) L Hemoglobin 8.7 G/DL (14.2-18.0) L Hematocrit 27.7 % (42.0-52.0) L Mean Corpuscular Volume 93 FL (80-99) Mean Corpuscular Hemoglobin 29.2 PG (27.0-31.0) Mean Corpuscular Hemoglobin Concent 31.5 G/DL (32.0-36.0) L Red Cell Distribution Width 14.6 % (11.6-14.8) Platelet Count 252 K/UL (150-450) Mean Platelet Volume 5.2 FL (6.5-10.1) L Neutrophils (%) (Auto) 84.4 % (45.0-75.0) H Lymphocytes (%) (Auto) 9.5 % (20.0-45.0) L Monocytes (%) (Auto) 5.7 % (1.0-10.0) Eosinophils (%) (Auto) 0.2 % (0.0-3.0) Basophils (%) (Auto) 0.2 % (0.0-2.0) Erythrocyte Sedimentation Rate 126 MM/HR (0-20) H Prothrombin Time 11.2 SEC (9.30-11.50) Prothromb Time International Ratio 1.1 (0.9-1.1) Activated Partial Thromboplast Time 24 SEC (23-33) Sodium Level 147 MMOL/L (136-145) H Potassium Level 3.4 MMOL/L (3.5-5.1) L Chloride Level 115 MMOL/L (98-107) H Carbon Dioxide Level 23 MMOL/L (21-32) Anion Gap 9 mmol/L (5-15) Blood Urea Nitrogen 24 mg/dL (7-18) H Creatinine 1.5 MG/DL (0.55-1.30) H Estimat Glomerular Filtration Rate mL/min (>60) Glucose Level 105 MG/DL (74-106) Calcium Level 8.9 MG/DL (8.5-10.1) Total Bilirubin 0.4 MG/DL (0.2-1.0) Aspartate Amino Transf (AST/SGOT) 19 U/L (15-37) Alanine Aminotransferase (ALT/SGPT) < 6 U/L (12-78) L Alkaline Phosphatase 56 U/L (46-116) C-Reactive Protein, Quantitative 30.2 mg/dL (0.00-0.90) H Total Protein 6.0 G/DL (6.4-8.2) L Albumin 1.0 G/DL (3.4-5.0) L Globulin 5.0 g/dL Albumin/Globulin Ratio 0.2 (1.0-2.7) L Lipase 36 U/L (73-393) L Microbiology Date/Time Source Procedure Growth Status 02/16/19 09:55 Blood Blood Culture - Preliminary Staphylococcus Aureus Resulted 02/16/19 09:55 Blood Blood Culture - Preliminary Staphylococcus Aureus Resulted 02/16/19 10:37 Nasal Nares MRSA Culture - Final Staphylococcus Aureus - Mrsa Complete 02/16/19 09:55 Urine,Clean Catch Urine Culture - Preliminary Escherichia Coli - Esbl Gram Negative Bacillus 2 Resulted 02/16/19 10:37 Rectum VRE Culture - Final Enterococcus Faecium - Vre Complete Shaina Wolfe MD Feb 18, 2019 14:38
[2019-02-18] MEDS ORDERED: Metoprolol 5mg/5ml Inj IVP PRN (14:39)
[2019-02-18 16:00] VITALS: BP 107/56
--- NOTE | 2019-02-18 18:41 | Pulmonology Progress Note ---
Assessment/Plan Assessment/Plan Sepsis with shock, improved UTI causing sepsis dementia atelectasis and scar hx SVT stable today continue abx IVF HHN nebs adn suction po as toelrated fu labs and cxr am poor candidate for invasive pulmonary procedure Subjective ROS Limited/Unobtainable: Yes Allergies: Coded Allergies: No Known Allergies (Unverified , 01/18/19) Subjective pt confused minimal po no reports of cp nv or bleeding not getting oob on o2 Objective Last 24 Hour Vital Signs Date Time Temp Pulse Resp B/P (MAP) Pulse Ox O2 Delivery O2 Flow Rate FiO2 02/18/19 16:00 98.6 80 18 107/56 (73) 98 02/18/19 16:00 81 02/18/19 12:00 63 02/18/19 12:00 97.9 68 20 137/48 (77) 100 02/18/19 11:47 Room Air 02/18/19 09:02 77 117/43 02/18/19 08:00 Room Air 02/18/19 08:00 129 02/18/19 08:00 98.1 77 22 117/43 (67) 98 02/18/19 04:00 98.6 66 24 119/69 (86) 97 02/18/19 04:00 Room Air 02/18/19 04:00 62 02/18/19 00:00 98.5 88 24 120/71 (87) 100 02/18/19 00:00 Room Air 02/18/19 00:00 87 02/17/19 21:00 101 82/40 02/17/19 20:00 99.2 120 24 121/82 (95) 100 02/17/19 20:00 Room Air 02/17/19 20:00 159 02/17/19 19:51 141 121/82 Intake and Output 02/17/19 02/18/19 19:00 07:00 Intake Total 619.0 ml Output Total 300 ml Balance 319.0 ml Intake Oral 200 ml IV Total 419.0 ml Output Urine Total 300 ml # Voids 2 2 # Bowel Movements 1 General Appearance: cachetic HEENT: atraumatic, anicteric Respiratory/Chest: rhonchi Cardiovascular: normal rate, regular rhythm, murmur systolic Abdomen: soft, non tender, no organomegaly Extremities: no cyanosis Neurologic/Psychiatric: disoriented Microbiology Date/Time Source Procedure Growth Status 02/16/19 09:55 Blood Blood Culture - Preliminary Staphylococcus Aureus Resulted 02/16/19 09:55 Blood Blood Culture - Preliminary Staphylococcus Aureus Resulted 02/16/19 10:37 Nasal Nares MRSA Culture - Final Staphylococcus Aureus - Mrsa Complete 02/16/19 09:55 Urine,Clean Catch Urine Culture - Preliminary Escherichia Coli - Esbl Gram Negative Bacillus 2 Resulted 02/16/19 10:37 Rectum VRE Culture - Final Enterococcus Faecium - Vre Complete Laboratory Tests 02/18/19 04:53: White Blood Count 15.5H, Red Blood Count 2.99L, Hemoglobin 8.7L, Hematocrit 27.7L, Mean Corpuscular Volume 93, Mean Corpuscular Hemoglobin 29.2, Mean Corpuscular Hemoglobin Concent 31.5L, Red Cell Distribution Width 14.6, Platelet Count 252, Mean Platelet Volume 5.2L, Neutrophils (%) (Auto) 84.4H, Lymphocytes (%) (Auto) 9.5L, Monocytes (%) (Auto) 5.7, Eosinophils (%) (Auto) 0.2, Basophils (%) (Auto) 0.2, Erythrocyte Sedimentation Rate 126H, Prothrombin Time 11.2, Prothromb Time International Ratio 1.1, Activated Partial Thromboplast Time 24, Sodium Level 147H, Potassium Level 3.4L, Chloride Level 115H, Carbon Dioxide Level 23, Anion Gap 9, Blood Urea Nitrogen 24H, Creatinine 1.5H, Estimat Glomerular Filtration Rate , Glucose Level 105, Calcium Level 8.9 , Total Bilirubin 0.4, Aspartate Amino Transf (AST/SGOT) 19, Alanine Aminotransferase (ALT/SGPT) < 6L, Alkaline Phosphatase 56, C-Reactive Protein, Quantitative 30.2H, Total Protein 6.0L, Albumin 1.0L, Globulin 5.0, Albumin/ Globulin Ratio 0.2L, Lipase 36L Current Medications Medications (Trade) Dose Ordered Sig/Vaughn Route PRN Reason Start Time Stop Time Status Last Admin Dose Admin Ascorbic Acid (Vitamin C) 250 mg TWICE A DAY ORAL 02/18/19 18:00 03/19/19 17:59 02/18/19 17:35 Metoprolol Tartrate (Lopressor) 2.5 mg Q6H PRN IVP HR > 140 BPM 02/18/19 14:39 03/20/19 14:38 Metoprolol Tartrate (Lopressor) 50 mg Q12HR ORAL 02/18/19 21:00 03/19/19 20:59 Multivitamins (Multivitamins) 1 tab DAILY ORAL 02/19/19 09:00 03/20/19 08:59 Piperacillin Sod/ Tazobactam Sod 3.375 gm/Sodium Chloride 110 ml @ 27.5 mls/hr EVERY 8 HOURS IVPB 02/18/19 22:00 02/23/19 21:59 Vancomycin HCl (Vanco rx to dose) 1 ea DAILY PRN MISC Per rx protocol 02/19/19 09:00 03/18/19 16:14 Zinc Sulfate (Zinc Sulfate) 220 mg DAILY ORAL 02/19/19 09:00 03/01/19 08:59 Bibiana Servin DO Feb 18, 2019 18:41
--- NOTE | 2019-02-18 19:26 | NUR ---
HAND-OFF: Report given to Melanie Bradley.Patient stable. Plan of care endorsed.
--- NOTE | 2019-02-18 19:30 | NUR ---
NURSE NOTES: Received report from Ha Faustin/Padmini White RN. Patient in bed AAO X1-2 with episodes of confusion at times. No complaints of acute pain or discomfort at this time. Kept clean, dry, and comfortable in bed with no S/S of distress; placed on RA and is tolerating well with 02 at 95-96%. Currently on continuous cardiac monitoring per protocol and noted episodes of SVTs. Placed on contact isolation precaution as ordered. IV line intact and kept TKO. Safety precaution in place; siderails X3 up, call light within reach, bed in lowest position, brakes and alarm on at all times. Needs and wants anticipated and attended. Will continue plan of care and monitor for any changes noted.
[2019-02-18 20:00] VITALS: BP 110/52
--- NOTE | 2019-02-18 21:45 | Progress Note ---
DATE: 02/18/2019 SUBJECTIVE: This is an elderly male, who is improving ____. OBJECTIVE: VITAL SIGNS: Stable. CHEST: Bilaterally clear. CARDIOVASCULAR: Regular rhythm. No gallop. No murmur. ABDOMEN: Soft. Positive bowel sounds. EXTREMITIES: CCE. ASSESSMENT AND PLAN: 1. Gram-negative bacteremia. 2. Sepsis. 3. Hypertension. 4. Dehydration. 5. Decubiti. PLAN: Currently, continue IV antibiotics. Continue supportive treatment and DVT prophylaxis . Pedrito Mims M.D. DR: АННА JOB#: [id number] CC:
[2019-02-19] VITALS (15 sets, daily range): BP systolic 100–150; BP diastolic 35–81
--- NOTE | 2019-02-19 04:52 | NUR ---
NURSE NOTES: Patient in bed asleep with no S/S of distress. Will continue to monitor.
[2019-02-19] MEDS: Piperacillin/Tazobactam 3.375 GM in NS 110 ML IVPB SCH ×2 (05:20→23:36)
--- NOTE | 2019-02-19 07:14 | NUR ---
NURSE NOTES: I received the patient resting in bed. Patient alert to name. Bed in the lowest position and call light within reach. Patient does not display any signs of distress or SOB. I will continue to monitor the patient and implement care.
--- NOTE | 2019-02-19 07:19 | NUR ---
HAND-OFF: Report given to Collin Miller RN. Patient in bed in stable condition with no S/S of distress. Endorsed plan of care.
[2019-02-19] MEDS: Ascorbic Acid 500mg tab ORAL SCH ×2 (08:34→19:00)
[2019-02-19] MEDS ORDERED: NS 275ml ONE (08:48)
[2019-02-19] MEDS ORDERED: Tubing IV Secondary IV ONE ×2 (08:48→17:15)
[2019-02-19] MEDS ORDERED: D5 1/2NS 1000ml IV ONE (08:48)
[2019-02-19] MEDS ORDERED: Zinc Sulfate 220mg cap ORAL SCH (09:00)
[2019-02-19] MEDS: Metoprolol Tartrate 50mg tab ORAL SCH (09:00)
[2019-02-19 09:49] LABS: BASOPHILS % (AUTO) 0.3 % (0.0-2.0); EOSINOPHILS % (AUTO) 0.7 % (0.0-3.0); HEMATOCRIT 28.2 % (42.0-52.0); HEMOGLOBIN 8.8 G/DL (14.2-18.0); LYMPHOCYTES % (AUTO) 12.3 % (20.0-45.0); MEAN CORPUSCULAR VOLUME 94 FL (80-99); MONOCYTES % (AUTO) 5.9 % (1.0-10.0); NEUTROPHILS % (AUTO) 80.7 % (45.0-75.0); PLATELET COUNT 248 K/UL (150-450); RED CELL DISTRIBUTION WIDTH 14.7 % (11.6-14.8); WHITE BLOOD COUNT 15.9 K/UL (4.8-10.8)
[2019-02-19 10:15] LABS: ANION GAP 10 mmol/L (5-15); BLOOD UREA NITROGEN 36 mg/dL (7-18); CALCIUM 9.1 MG/DL (8.5-10.1); CARBON DIOXIDE 22 MMOL/L (21-32); CHLORIDE 115 MMOL/L (98-107); CREATININE 1.5 MG/DL (0.55-1.30); POTASSIUM 3.6 MMOL/L (3.5-5.1); SODIUM 147 MMOL/L (136-145)
--- NOTE | 2019-02-19 10:24 | Pulmonology Progress Note ---
Assessment/Plan Assessment/Plan Sepsis with shock, improved UTI causing sepsis dementia atelectasis and scar hx SVT bacteremia with MRSA check Echo, may need KARLIE continue abx IVF HHN nebs adn suction po as toelrated fu labs and cxr am poor candidate for invasive pulmonary procedure Subjective ROS Limited/Unobtainable: Yes Allergies: Coded Allergies: No Known Allergies (Unverified , 01/18/19) Subjective pt remains confused tachycardic svt worse with changing cleaning minimal po very slow eater wiht assist no reports of cp nv or bleeding not getting oob on o2 Objective Last 24 Hour Vital Signs Date Time Temp Pulse Resp B/P (MAP) Pulse Ox O2 Delivery O2 Flow Rate FiO2 02/19/19 09:00 93 100/81 02/19/19 09:00 Room Air 02/19/19 08:00 98.4 93 18 100/81 (87) 99 02/19/19 08:00 93 02/19/19 04:00 98.9 94 18 116/52 (73) 96 02/19/19 04:00 83 02/19/19 00:00 99.2 97 18 114/76 (89) 95 02/19/19 00:00 92 02/18/19 21:35 142 110/52 02/18/19 21:00 Room Air 02/18/19 20:00 89 02/18/19 20:00 98.4 102 18 110/52 (71) 97 02/18/19 16:00 98.6 80 18 107/56 (73) 98 02/18/19 16:00 81 02/18/19 12:00 63 02/18/19 12:00 97.9 68 20 137/48 (77) 100 02/18/19 11:47 Room Air Intake and Output 02/18/19 02/19/19 18:59 06:59 Intake Total 463.5 ml Output Total 200 ml 100 ml Balance 263.5 ml -100 ml Intake Oral 360 ml IV Total 103.5 ml Output Urine Total 200 ml 100 ml General Appearance: cachetic HEENT: atraumatic, anicteric Respiratory/Chest: rhonchi Cardiovascular: tachycardia, arrhythmia Abdomen: soft, non tender, no organomegaly Skin: no rash, no lesions Neurologic/Psychiatric: disoriented Microbiology Date/Time Source Procedure Growth Status 02/16/19 10:37 Nasal Nares MRSA Culture - Final Staphylococcus Aureus - Mrsa Complete 02/16/19 10:37 Rectum - Final NO CARBAPENEM-RESISTANT ENTEROBACTERI... Complete 02/16/19 10:37 Rectum VRE Culture - Final Enterococcus Faecium - Vre Complete Laboratory Tests 02/19/19 08:58: White Blood Count 15.9H, Red Blood Count 3.00L, Hemoglobin 8.8L, Hematocrit 28.2L, Mean Corpuscular Volume 94, Mean Corpuscular Hemoglobin 29.4, Mean Corpuscular Hemoglobin Concent 31.4L, Red Cell Distribution Width 14.7, Platelet Count 248, Mean Platelet Volume 5.9L, Neutrophils (%) (Auto) 80.7H, Lymphocytes (%) (Auto) 12.3L, Monocytes (%) (Auto) 5.9, Eosinophils (%) (Auto) 0.7, Basophils (%) (Auto) 0.3, Sodium Level 147H, Potassium Level 3.6, Chloride Level 115H, Carbon Dioxide Level 22, Anion Gap 10, Blood Urea Nitrogen 36H, Creatinine 1.5H, Estimat Glomerular Filtration Rate , Glucose Level 139H, Calcium Level 9.1, Magnesium Level 1.8, Random Vancomycin Level 12.1 Current Medications Medications (Trade) Dose Ordered Sig/Vaughn Route PRN Reason Start Time Stop Time Status Last Admin Dose Admin Ascorbic Acid (Vitamin C) 250 mg TWICE A DAY ORAL 02/18/19 18:00 03/19/19 17:59 02/19/19 08:34 Metoprolol Tartrate (Lopressor) 2.5 mg Q6H PRN IVP HR > 140 BPM 02/18/19 14:39 03/20/19 14:38 Metoprolol Tartrate (Lopressor) 50 mg Q12HR ORAL 02/18/19 21:00 03/19/19 20:59 02/18/19 21:35 Multivitamins (Multivitamins) 1 tab DAILY ORAL 02/19/19 09:00 03/20/19 08:59 02/19/19 08:34 Piperacillin Sod/ Tazobactam Sod 3.375 gm/Sodium Chloride 110 ml @ 27.5 mls/hr EVERY 8 HOURS IVPB 02/18/19 22:00 02/23/19 21:59 02/19/19 05:20 Vancomycin HCl (Vanco rx to dose) 1 ea DAILY PRN MISC Per rx protocol 02/19/19 09:00 03/18/19 16:14 Vancomycin HCl 500 mg/Dextrose 110 ml @ 110 mls/hr Q24H IVPB 02/19/19 12:00 02/24/19 11:59 Zinc Sulfate (Zinc Sulfate) 220 mg DAILY ORAL 02/19/19 09:00 03/01/19 08:59 02/19/19 08:34 Bibiana Servin DO Feb 19, 2019 10:24
--- NOTE | 2019-02-19 11:00 | NUR ---
NURSE NOTES: Patient became very hypotensive and tachycardic. A rapid response was called. The rapid response team arrived and the patient was attached to the monitor, blood glucose was checked and vital signs were monitored. The patient was given a bolus of fluid. The machinist outside was contacted, Dr. Wolfe and she gave an order to transfer to ICU.
--- NOTE | 2019-02-19 11:30 | NUR ---
RAPID RESPONSE: See Rapid Response sheet which remains on paper. Responded to an WEB PRESS OPERATOR - upon arrival, patient was Awake however appeared confused. Primary RN reported that patient became hypoTN initially SBP 55s, repeat with 77s. Patient BPs were checked q 5-10 min. Patient was not noted to have COPD or CHF, a bolus of 500 ml of NS was given. After approximately, 250 mls patient's BP improved to 125/42 however HR remained SVT 140s. EKG was done and Lactic acid was requested to be drawn given that patient had an initial elevated WBC. Dr Fitch was called and patient was transferred to the ICU. No other medications were given. Patient was breathing on RA.
[2019-02-19] MEDS ORDERED: Vancomycin 500mg/D5W 110ml IVPB SCH ×2 (12:00)
[2019-02-19] MEDS ORDERED: Vancomycin 500 MG in D5W 110 ML IVPB SCH (12:00)
--- NOTE | 2019-02-19 12:00 | NUR ---
HAND-OFF: Report given to CELINE Taylor. Patient transferred to ICU.
[2019-02-19] MEDS ORDERED: Metoprolol 5mg/5ml Inj IVP PRN (12:20)
--- NOTE | 2019-02-19 12:30 | NUR ---
NURSE NOTES: Patient received from Claudia BERGER after DATABASE CONSULTANT. Patient observed to awake and alert. Patient able to verbally communicate however appears confused at times. Patient is oriented to self, opens eyes spontaneously and has BUE strength 3/5. Patient follows commands intermittently and becomes agitated easily with resisting to care however when guided, patient will cooperate most of the time. Patient does yell at techs and RNs. Patient is being monitored on the director of student aid BP 100/35 HR 141 RR 19 SPO2 100% on 2L of O2 NC. Patient is SVT with 1st degree AVB. MD is aware of the SVT. DATABASE CONSULTANT was called for the HR and hypotension. SBP has remained above 100s since being admitted to the ICU. Patient has a condom catheter in which he is not producing large amounts of UOP. Urine is light to moderately samson colored urine. Patient has a LFA 20 G that is TKO. Patient is with a low grade temp at 99.4. Cooling measures are in place. Safety measures are in place with bed locked in the lowest position, side rails padded for sz precautions, side rails up x 3 and bed alarmed. Will con't to monitor patient and follow plan of care.
--- NOTE | 2019-02-19 13:18 | Surgery Progress Note ---
Surgery Progress Note Subjective Additional Comments became hypotensive and tachycardic responded to IV fluids transferred to ICU labs noted exam stable patient states he feels okay no complaints Objective Last 24 Hour Vital Signs Date Time Temp Pulse Resp B/P (MAP) Pulse Ox O2 Delivery O2 Flow Rate FiO2 02/19/19 12:00 141 02/19/19 12:00 100.6 146 20 106/60 (75) 98 02/19/19 09:00 93 100/81 02/19/19 09:00 Room Air 02/19/19 08:00 98.4 93 18 100/81 (87) 99 02/19/19 08:00 93 02/19/19 04:00 98.9 94 18 116/52 (73) 96 02/19/19 04:00 83 02/19/19 00:00 99.2 97 18 114/76 (89) 95 02/19/19 00:00 92 02/18/19 21:35 142 110/52 02/18/19 21:00 Room Air 02/18/19 20:00 89 02/18/19 20:00 98.4 102 18 110/52 (71) 97 02/18/19 16:00 98.6 80 18 107/56 (73) 98 02/18/19 16:00 81 I&O Intake and Output 02/18/19 02/19/19 18:59 06:59 Intake Total 463.5 ml Output Total 200 ml 100 ml Balance 263.5 ml -100 ml Intake Oral 360 ml IV Total 103.5 ml Output Urine Total 200 ml 100 ml Dressing: saturated Wound: clean Cardiovascular: RSR Respiratory: clear Abdomen: soft, present bowel sounds, non-distended Extremities: no tenderness, no cyanosis Laboratory Tests Test 02/19/19 08:58 02/19/19 11:45 White Blood Count 15.9 K/UL (4.8-10.8) H Red Blood Count 3.00 M/UL (4.70-6.10) L Hemoglobin 8.8 G/DL (14.2-18.0) L Hematocrit 28.2 % (42.0-52.0) L Mean Corpuscular Volume 94 FL (80-99) Mean Corpuscular Hemoglobin 29.4 PG (27.0-31.0) Mean Corpuscular Hemoglobin Concent 31.4 G/DL (32.0-36.0) L Red Cell Distribution Width 14.7 % (11.6-14.8) Platelet Count 248 K/UL (150-450) Mean Platelet Volume 5.9 FL (6.5-10.1) L Neutrophils (%) (Auto) 80.7 % (45.0-75.0) H Lymphocytes (%) (Auto) 12.3 % (20.0-45.0) L Monocytes (%) (Auto) 5.9 % (1.0-10.0) Eosinophils (%) (Auto) 0.7 % (0.0-3.0) Basophils (%) (Auto) 0.3 % (0.0-2.0) Sodium Level 147 MMOL/L (136-145) H Potassium Level 3.6 MMOL/L (3.5-5.1) Chloride Level 115 MMOL/L (98-107) H Carbon Dioxide Level 22 MMOL/L (21-32) Anion Gap 10 mmol/L (5-15) Blood Urea Nitrogen 36 mg/dL (7-18) H Creatinine 1.5 MG/DL (0.55-1.30) H Estimat Glomerular Filtration Rate mL/min (>60) Glucose Level 139 MG/DL (74-106) H Calcium Level 9.1 MG/DL (8.5-10.1) Magnesium Level 1.8 MG/DL (1.8-2.4) Random Vancomycin Level 12.1 ug/mL Lactic Acid Level 2.40 mmol/L (0.4-2.0) H Plan Problems: (1) Renal insufficiency (2) UTI (urinary tract infection) (3) Dehydration (4) Decubitus skin ulcer Assessment & Plan: Pt presented on admission with multiple pressure injuries and ulcerations to lower extremities. Unstageable pressure injury with irregular borders noted to sacrum . Base of wound has 100% mixed slough and necrosis.Edges adherent and dark . Periwound indurated with darker skin tone. Pt complained of pain when minimally palpated. Mild odor noted(L)11.1cm x (W)9cm. Full thickness ulcer R tibia. Base of wound has 100% yellow slough. Edges adherent and flat ,Periwound without erythema or fluctuance.(L)2.5cm x (W)1.5cm. Stable dry eschar noted to R hallux. edges are dark but adherent to base of wound. Periwound dark without erythema or fluctuance.(L)1.5cm x (W)2cm. Stable dry eschar noted to R st metatarsal head. Periwound pale without fluctuance. (L)1.5cm x (W)2.5cm. Stable dry eschar noted to dorsal aspects of R 3rd and 4th metatarsals. Full thickness ulcer lateral R 5th metatarsal. base of wound 50% erythematous 50 % necrotic. Edges are black . No odor or exudate noted(L)1.5cm x (W)1.6cm. Stable dry eschar R heel . Periwound fluctuant without erythema. Pt complained of pain when minimally palpated.(L)3.5cm x (W)5.5cm. Stable dry eschar noted to dorso/flexor L foot. Periwound without erythema , induration or fluctuance (L)2.8cm x (W)1cm. Reabsorbing blood blister noted to medial L foot. Base of wound 25% fluctuant , 75% reabsorbed. Periwound without erythema or fluctuance(L)2cm x (W)3.1cm. L heel is dry and blanchable with historical scarring from previous wounds .Dry flaky skin noted to both feet. Tx.Plan: Swab all wounds both lower ext and feet with Betadine. Cover each wound with Optifoam drsgs every 3 days and prn. Cleanse Sacral wound with Saline. Apply Therahoney. Apply Moisture Barrier Paste periwound. Cover with Optifoam Drsg. Change Daily and prn. APM/PHIL mattress overlay. Reposition at least every 2hours or as tolerated. Off-load heels with pillow. (5) Severe sepsis Assessment & Plan: leukocytosis bacteremia on IV abx IV fluid bolus ICU now DAILY ESTIMATED NEEDS: Needs based on wounds, sepsis 75kg 30-35 kcals/kg 8912-4481 total kcals 1.25-2 g protein/kg 94-150 g total protein 25-30ml/kcal mL/kg 2052-2112 total fluid mLs NUTRITION DIAGNOSIS: 1) Increased kcal/ pro needs r/t wound healing as evidenced by sacral unstageable, Full thickness L tibia wounds, elev WBC, adm w/ hypotension. 2) Swallowing difficulty r/t dysphagia as evidenced by pt on puree texture w/ NTL SECOND OFFICER. (CURRENT DIET: Regular puree) PO DIET RECOMMENDATIONS--->>>[place]/ Regular diet (texture per CULTURAL HISTORIAN) ADDITIONAL RECOMMENDATIONS: 1) Pt w/ variable recorded wts-> Please obtain a CALIBRATED bed wt EMR:165#, Bed wt: 199#, [place] adm wt: 158 lbs. 2) CULTURAL HISTORIAN eval for appropriate texture-> on Tice liquids SECOND OFFICER 3) WOUND CARE: Add BRUCE BID Add VIT C 250mg BID + Add MVI w/ min daily Add ZnSO4 220mg daily x10 days 4) Rec added Ensure Enlive BID (350 kcal each) to better meet est needs. Tawanda Alfaro Feb 19, 2019 13:18
[2019-02-19] MEDS ORDERED: Piperacillin/Tazobactam 3.375 GM in NS 110 ML IVPB SCH (14:00)
--- NOTE | 2019-02-19 14:20 | Cardiology Progress Note ---
Assessment/Plan Assessment/Plan the patient developed hyptension when went in SVT. 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 after IVF given, he went back to sinus rhythm The patient is transferred to ICU at the time of evaluation the patient is alert and confused, he cannot give any history. The patient is resisting echo Objective Last 24 Hour Vital Signs Date Time Temp Pulse Resp B/P (MAP) Pulse Ox O2 Delivery O2 Flow Rate FiO2 02/19/19 13:00 99.4 141 19 100/35 (56) 100 02/19/19 12:00 141 02/19/19 12:00 100.6 146 20 106/60 (75) 98 02/19/19 09:00 93 100/81 02/19/19 09:00 Room Air 02/19/19 08:00 98.4 93 18 100/81 (87) 99 02/19/19 08:00 93 02/19/19 04:00 98.9 94 18 116/52 (73) 96 02/19/19 04:00 83 02/19/19 00:00 99.2 97 18 114/76 (89) 95 02/19/19 00:00 92 02/18/19 21:35 142 110/52 02/18/19 21:00 Room Air 02/18/19 20:00 89 02/18/19 20:00 98.4 102 18 110/52 (71) 97 02/18/19 16:00 98.6 80 18 107/56 (73) 98 02/18/19 16:00 81 General Appearance: other - confused EENT: PERRL/EOMI Neck: no JVD Rhythm: NSR, SVT Cardiovascular: bradycardia, tachycardia Respiratory/Chest: crackles/rales Abdomen: normal bowel sounds Neurologic: propagation worker II-XII grossly normal Intake and Output 02/18/19 02/19/19 18:59 06:59 Intake Total 463.5 ml Output Total 200 ml 100 ml Balance 263.5 ml -100 ml Intake Oral 360 ml IV Total 103.5 ml Output Urine Total 200 ml 100 ml Laboratory Tests Test 02/19/19 08:58 02/19/19 11:45 White Blood Count 15.9 K/UL (4.8-10.8) H Red Blood Count 3.00 M/UL (4.70-6.10) L Hemoglobin 8.8 G/DL (14.2-18.0) L Hematocrit 28.2 % (42.0-52.0) L Mean Corpuscular Volume 94 FL (80-99) Mean Corpuscular Hemoglobin 29.4 PG (27.0-31.0) Mean Corpuscular Hemoglobin Concent 31.4 G/DL (32.0-36.0) L Red Cell Distribution Width 14.7 % (11.6-14.8) Platelet Count 248 K/UL (150-450) Mean Platelet Volume 5.9 FL (6.5-10.1) L Neutrophils (%) (Auto) 80.7 % (45.0-75.0) H Lymphocytes (%) (Auto) 12.3 % (20.0-45.0) L Monocytes (%) (Auto) 5.9 % (1.0-10.0) Eosinophils (%) (Auto) 0.7 % (0.0-3.0) Basophils (%) (Auto) 0.3 % (0.0-2.0) Sodium Level 147 MMOL/L (136-145) H Potassium Level 3.6 MMOL/L (3.5-5.1) Chloride Level 115 MMOL/L (98-107) H Carbon Dioxide Level 22 MMOL/L (21-32) Anion Gap 10 mmol/L (5-15) Blood Urea Nitrogen 36 mg/dL (7-18) H Creatinine 1.5 MG/DL (0.55-1.30) H Estimat Glomerular Filtration Rate mL/min (>60) Glucose Level 139 MG/DL (74-106) H Calcium Level 9.1 MG/DL (8.5-10.1) Magnesium Level 1.8 MG/DL (1.8-2.4) Random Vancomycin Level 12.1 ug/mL Lactic Acid Level 2.40 mmol/L (0.4-2.0) H Shaina Wolfe MD Feb 19, 2019 14:20
--- NOTE | 2019-02-19 14:28 | Cardiology Progress Note ---
Assessment/Plan Assessment/Plan the patient developed hyptension when went in SVT. 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 after IVF given, he went back to sinus rhythm The patient is transferred to ICU at the time of evaluation the patient is alert and confused, he cannot give any history. The patient is resisting echo Objective Last 24 Hour Vital Signs Date Time Temp Pulse Resp B/P (MAP) Pulse Ox O2 Delivery O2 Flow Rate FiO2 02/19/19 13:00 99.4 141 19 100/35 (56) 100 02/19/19 12:00 141 02/19/19 12:00 100.6 146 20 106/60 (75) 98 02/19/19 09:00 93 100/81 02/19/19 09:00 Room Air 02/19/19 08:00 98.4 93 18 100/81 (87) 99 02/19/19 08:00 93 02/19/19 04:00 98.9 94 18 116/52 (73) 96 02/19/19 04:00 83 02/19/19 00:00 99.2 97 18 114/76 (89) 95 02/19/19 00:00 92 02/18/19 21:35 142 110/52 02/18/19 21:00 Room Air 02/18/19 20:00 89 02/18/19 20:00 98.4 102 18 110/52 (71) 97 02/18/19 16:00 98.6 80 18 107/56 (73) 98 02/18/19 16:00 81 Cardiovascular: regular rhythm - the patient is back in SVT, he is sleeping, will start oral amiodarone now. Intake and Output 02/18/19 02/19/19 18:59 06:59 Intake Total 463.5 ml Output Total 200 ml 100 ml Balance 263.5 ml -100 ml Intake Oral 360 ml IV Total 103.5 ml Output Urine Total 200 ml 100 ml Laboratory Tests Test 02/19/19 08:58 02/19/19 11:45 White Blood Count 15.9 K/UL (4.8-10.8) H Red Blood Count 3.00 M/UL (4.70-6.10) L Hemoglobin 8.8 G/DL (14.2-18.0) L Hematocrit 28.2 % (42.0-52.0) L Mean Corpuscular Volume 94 FL (80-99) Mean Corpuscular Hemoglobin 29.4 PG (27.0-31.0) Mean Corpuscular Hemoglobin Concent 31.4 G/DL (32.0-36.0) L Red Cell Distribution Width 14.7 % (11.6-14.8) Platelet Count 248 K/UL (150-450) Mean Platelet Volume 5.9 FL (6.5-10.1) L Neutrophils (%) (Auto) 80.7 % (45.0-75.0) H Lymphocytes (%) (Auto) 12.3 % (20.0-45.0) L Monocytes (%) (Auto) 5.9 % (1.0-10.0) Eosinophils (%) (Auto) 0.7 % (0.0-3.0) Basophils (%) (Auto) 0.3 % (0.0-2.0) Sodium Level 147 MMOL/L (136-145) H Potassium Level 3.6 MMOL/L (3.5-5.1) Chloride Level 115 MMOL/L (98-107) H Carbon Dioxide Level 22 MMOL/L (21-32) Anion Gap 10 mmol/L (5-15) Blood Urea Nitrogen 36 mg/dL (7-18) H Creatinine 1.5 MG/DL (0.55-1.30) H Estimat Glomerular Filtration Rate mL/min (>60) Glucose Level 139 MG/DL (74-106) H Calcium Level 9.1 MG/DL (8.5-10.1) Magnesium Level 1.8 MG/DL (1.8-2.4) Random Vancomycin Level 12.1 ug/mL Lactic Acid Level 2.40 mmol/L (0.4-2.0) H Shaina Wolfe MD Feb 19, 2019 14:28
[2019-02-19] MEDS ORDERED: Amiodarone 200mg tab ORAL SCH (14:30)
--- NOTE | 2019-02-19 14:30 | Diagnostic Imaging Report ---
Indication: Dyspnea Comparison: 02/16/2019 A single view chest radiograph was obtained. Findings: Lung volumes are low. There may be mild basilar atelectasis. Heart size is stable. IMPRESSION: No change from the prior examination
--- NOTE | 2019-02-19 14:34 | Cardiology Progress Note ---
Assessment/Plan Assessment/Plan echo reviewed, has [id number] LV, but he was in SVT, his RV was mildly dilated, I did not see good TR jet probably due to tachcycardia, need to repeat echo when he is in sinus rhythm I did carotic massage and he converted back to sinus rhythm discontinue metoprolol and will give amiodarone 200 bid d/w ICU nurse and civil cadd technician spent one hour in ICU setting Subjective Subjective the patient had another episdoe of SVt while echo was done, and he was asymptomatic Financial Sales Advisor 110/70 Objective Last 24 Hour Vital Signs Date Time Temp Pulse Resp B/P (MAP) Pulse Ox O2 Delivery O2 Flow Rate FiO2 02/19/19 13:00 99.4 141 19 100/35 (56) 100 02/19/19 12:00 141 02/19/19 12:00 100.6 146 20 106/60 (75) 98 02/19/19 09:00 93 100/81 02/19/19 09:00 Room Air 02/19/19 08:00 98.4 93 18 100/81 (87) 99 02/19/19 08:00 93 02/19/19 04:00 98.9 94 18 116/52 (73) 96 02/19/19 04:00 83 02/19/19 00:00 99.2 97 18 114/76 (89) 95 02/19/19 00:00 92 02/18/19 21:35 142 110/52 02/18/19 21:00 Room Air 02/18/19 20:00 89 02/18/19 20:00 98.4 102 18 110/52 (71) 97 02/18/19 16:00 98.6 80 18 107/56 (73) 98 02/18/19 16:00 81 General Appearance: other - confused EENT: PERRL/EOMI Rhythm: SVT Cardiovascular: tachycardia Intake and Output 02/18/19 02/19/19 18:59 06:59 Intake Total 463.5 ml Output Total 200 ml 100 ml Balance 263.5 ml -100 ml Intake Oral 360 ml IV Total 103.5 ml Output Urine Total 200 ml 100 ml 2D Echo: Echo reviewed, hyperdynamic LV without WMA, RV dilated but did not see TR Laboratory Tests Test 02/19/19 08:58 02/19/19 11:45 White Blood Count 15.9 K/UL (4.8-10.8) H Red Blood Count 3.00 M/UL (4.70-6.10) L Hemoglobin 8.8 G/DL (14.2-18.0) L Hematocrit 28.2 % (42.0-52.0) L Mean Corpuscular Volume 94 FL (80-99) Mean Corpuscular Hemoglobin 29.4 PG (27.0-31.0) Mean Corpuscular Hemoglobin Concent 31.4 G/DL (32.0-36.0) L Red Cell Distribution Width 14.7 % (11.6-14.8) Platelet Count 248 K/UL (150-450) Mean Platelet Volume 5.9 FL (6.5-10.1) L Neutrophils (%) (Auto) 80.7 % (45.0-75.0) H Lymphocytes (%) (Auto) 12.3 % (20.0-45.0) L Monocytes (%) (Auto) 5.9 % (1.0-10.0) Eosinophils (%) (Auto) 0.7 % (0.0-3.0) Basophils (%) (Auto) 0.3 % (0.0-2.0) Sodium Level 147 MMOL/L (136-145) H Potassium Level 3.6 MMOL/L (3.5-5.1) Chloride Level 115 MMOL/L (98-107) H Carbon Dioxide Level 22 MMOL/L (21-32) Anion Gap 10 mmol/L (5-15) Blood Urea Nitrogen 36 mg/dL (7-18) H Creatinine 1.5 MG/DL (0.55-1.30) H Estimat Glomerular Filtration Rate mL/min (>60) Glucose Level 139 MG/DL (74-106) H Calcium Level 9.1 MG/DL (8.5-10.1) Magnesium Level 1.8 MG/DL (1.8-2.4) Random Vancomycin Level 12.1 ug/mL Lactic Acid Level 2.40 mmol/L (0.4-2.0) H Shaina Wolfe MD Feb 19, 2019 14:34
--- NOTE | 2019-02-19 14:45 | NUR ---
NURSE NOTES: Dr Fitch assessed patient bedside. Echo done. Amio PO ordered with some improvement. Patient is in SVT. BP improved. MD changed IVF orders. Will carry out MD orders and con't to monitor.
--- NOTE | 2019-02-19 16:15 | NUR ---
NURSE NOTES: Patient observed bedside. Patient is very drowsy however does arouse very easily to voices or stimulus. Patient continues to respond verbally and makes his needs known. Patient is oriented to self only, follows some commands and is resistive to care due to his confusion. Patient is being monitored on the cardiac cath lab manager with VSS except HR in 120s to 130s. Patient has a condom catheter that is draining to gravity with minimal samson colored urine. Patient has a LFA 20 G that is running 1/2 NS at 75 ml/hr. Safety measures are in place with bed locked in the lowest position, side rails padded for sz precautions, side rails up x 3 and bed alarmed. Will continue to monitor patient and follow plan of care.
--- NOTE | 2019-02-19 19:40 | NUR ---
NURSE NOTES: Received Pt is resting on the bed and awake and confused. Given realty orientation. On Tele monitor with ST 130's. IV site intact and no sign of infiltration noted. Dressing is clean and dry on wounds area. Pt has condom cath and light samson color urine noted. Denied pain at this time. Changed position. Placed fall precaution. Will continue to care plan.
--- NOTE | 2019-02-19 19:45 | Progress Note ---
DATE: 02/19/2019 SUBJECTIVE: This is an elderly male who came in for sepsis, dehydration, elevated lactic acid. The patient is currently improving. He has been on antibiotics. PHYSICAL EXAMINATION: GENERAL: The patient is more awake and alert. VITAL SIGNS: Blood pressure stable. CHEST: Bilaterally clear. CARDIOVASCULAR: Regular rhythm. No gallop. No murmur. ABDOMEN: Soft. Positive bowel sounds. EXTREMITIES: CCE. ASSESSMENT: 1. Sepsis. 2. Encephalopathy, improved. 3. Hypertension. 4. Dementia. PLAN: The patient on soft diet. Continue IV fluids. . Continue antibiotics. Continue supportive treatment, PT and OT. Discussed with the charge nurse. Discharge plan to SNF early Wednesday. Pedrito Mims M.D. DR: Chris JOB#: [id number] CC:
[2019-02-19] MEDS: Amiodarone 200mg tab ORAL SCH (20:49)
[2019-02-19] MEDS ORDERED: Metoprolol Tartrate 50mg tab ORAL SCH (21:00)
[2019-02-19] MEDS ORDERED: Vancomycin 750mg/NS 275ml IVPB SCH ×2 (21:00)
--- NOTE | 2019-02-19 22:00 | NUR ---
NURSE NOTES: Pt is sleeping on the bed and no sign of acute distress noted. On tele monitor with SR with HR: 87's. IV site intact and no sign of infiltration noted. Changed position. Placed fall precaution. Will continue to care plan.
[2019-02-20] VITALS (23 sets, daily range): BP systolic 99–167; BP diastolic 31–71
--- NOTE | 2019-02-20 | NUR ---
NURSE NOTES: Pt is awake , confused and slight agitated. On Tele monitor with SR with HR: 77's. No sign of acute distress noted. Placed fall precaution. Changed position. On running with 1/2NS @ 75cc/hr. Will continue to monitor nay change of condition.
--- NOTE | 2019-02-20 02:00 | NUR ---
NURSE NOTES: Pt is sleeping on the bed and no sign of acute distress noted. Vital sign is stable. on tele monitor with SR. Placed fall precaution. Provided good sleep environment. Placed new condom cath. Changed position. Will continue to care plan.
--- NOTE | 2019-02-20 04:00 | NUR ---
NURSE NOTES: Morning care was done. BP stable with 119/55mmHg and HR is 68's. Changed dressing on wounds area. Iv site intact and no sign of infiltration noted. Placed fall precaution. Changed position. Will continue to monitor any change of condition.
--- NOTE | 2019-02-20 07:15 | NUR ---
NURSE NOTES:NURSE NOTES: RECEIVED BED SIDE REPORT FROM JESSICA BERGER OF [facility] SHIFT STAFF. RECEIVED PT WITH HOB ELEVATED 35 DEGREE EYES OPENS WITH VERBAL AND TACTILE STIMULI.PT IS ALERT TO NAME ,SEEMS CALM AND ABLE TO FALLOWS SIMPLE COMMANDS.PT REPOSITIONED IN BED AND MADE COMFORTABLE POSSIBLE.PT DENIES PAIN OR ANY DISCOMFORT AT THIS TIME.FULL BODY ASSESSMENT DONE.PT EAT 50% DURING BREAKFAST TIME WITH ASSISTANCE, TOLERATED WELL .NO ACUTE DISTRESS NOTED AT THIS TIME .WILL CONT TO MONITOR.
--- NOTE | 2019-02-20 07:28 | NUR ---
HAND-OFF: Report given to CELINE Nance. Pt is sleeping on the bed and no sign of acute distress noted.
--- NOTE | 2019-02-20 08:31 | NUR ---
RADIOLOGY DEPT., CHEST X-RAY DONE.-P.DYE
[2019-02-20 08:39] LABS: HEMATOCRIT 24.9 % (42.0-52.0); HEMOGLOBIN 7.8 G/DL (14.2-18.0); MEAN CORPUSCULAR VOLUME 92 FL (80-99); PLATELET COUNT 230 K/UL (150-450); RED BLOOD COUNT 2.69 M/UL (4.70-6.10); RED CELL DISTRIBUTION WIDTH 14.7 % (11.6-14.8)
[2019-02-20 08:44] LABS: ANION GAP 7 mmol/L (5-15); BLOOD UREA NITROGEN 36 mg/dL (7-18); CALCIUM 9.2 MG/DL (8.5-10.1); CARBON DIOXIDE 25 MMOL/L (21-32); CHLORIDE 116 MMOL/L (98-107); CREATININE 1.3 MG/DL (0.55-1.30); POTASSIUM 3.5 MMOL/L (3.5-5.1); SODIUM 148 MMOL/L (136-145)
[2019-02-20] MEDS: Piperacillin/Tazobactam 3.375 GM in NS 110 ML IVPB SCH ×2 (08:50→16:36)
[2019-02-20] MEDS ORDERED: Zinc Sulfate 220mg cap ORAL SCH (09:00)
[2019-02-20] MEDS: Ascorbic Acid 500mg tab ORAL SCH ×2 (09:05→18:20)
[2019-02-20] MEDS: Amiodarone 200mg tab ORAL SCH ×2 (09:05→20:54)
--- NOTE | 2019-02-20 09:43 | Hematology/Onc Progress Note ---
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 Favor scarring, but the possibility of neoplasm cannot be ruled out. 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 Iron Overload --> Ferrtin 1327 continue to monitor consider chelation therapy prior to blood tx. --> oFF iv iron # Renal insufficiency --> as per renal recs # Respiratory failure is on nc/bipap --> per pulm # Hypotension on fluids now better The timing of this note does not necessarily reflect the time of the patient was seen. GREATLY APPRECIATE CONSULTATION. Subjective Constitutional: Denies: no symptoms, chills, fever, malaise, weakness, other HEENT: Denies: no symptoms, eye pain, blurred vision, tearing, double vision, ear pain, ear discharge, nose pain, nose congestion, throat pain, throat swelling, mouth pain, mouth swelling, other Cardiovascular: Denies: no symptoms, chest pain, edema, irregular heart rate, lightheadedness, palpitations, syncope, other Respiratory: Denies: no symptoms, cough, shortness of breath, SOB with excertion, SOB at rest, sputum, wheezing, other Gastrointestinal/Abdominal: Denies: no symptoms, abdomen distended, abdominal pain, black stools, tarry stools, blood in stool, constipated, diarrhea, difficulty swallowing, nausea, poor appetite, poor fluid intake, rectal bleeding , vomiting, other Genitourinary: Denies: no symptoms, burning, discharge, frequency, flank pain, hematuria, incontinence, pain, urgency, other Neurologic/Psychiatric: Denies: no symptoms, anxiety, depressed, emotional problems, headache, numbness, paresthesia, pre-existing deficit, seizure, tingling, tremors, weakness, other Endocrine: Denies: no symptoms, excessive sweating, flushing, intolerance to cold, intolerance to heat, increased hunger, increased thirst, increased urine, unexplained weight gain, unexplained weight loss, other Hematologic/Lymphatic: Denies: no symptoms, anemia, easy bleeding, easy bruising, adenopathy, other Allergies: Coded Allergies: No Known Allergies (Unverified , 01/18/19) Subjective 02/18: no events, no f/c, no night sweats reported, labs have been reviewed 02/20: bp is stable, remains confused, labs reviewed Objective Objective Current Medications Medications (Trade) Dose Ordered Sig/Vaughn Route PRN Reason Start Time Stop Time Status Last Admin Dose Admin Amiodarone HCl (Cordarone) 200 mg EVERY 12 HOURS ORAL 02/19/19 21:00 03/21/19 20:59 02/20/19 09:05 Ascorbic Acid (Vitamin C) 250 mg TWICE A DAY ORAL 02/19/19 18:00 03/19/19 17:59 02/20/19 09:05 Multivitamins (Multivitamins) 1 tab DAILY ORAL 02/20/19 09:00 03/20/19 08:59 02/20/19 09:05 Piperacillin Sod/ Tazobactam Sod 3.375 gm/Sodium Chloride 110 ml @ 27.5 mls/hr Q8HR@0000,0800,1600 IVPB 02/20/19 00:00 02/26/19 13:59 02/20/19 08:50 Sodium Chloride 1,000 ml @ 75 mls/hr [id number] IV 02/19/19 14:30 03/21/19 14:29 02/20/19 04:05 Vancomycin HCl (Vanco rx to dose) 1 ea DAILY PRN MISC Per rx protocol 02/20/19 09:00 03/18/19 16:14 Vancomycin HCl 750 mg/Sodium Chloride 275 ml @ 183.333 mls/hr Q24H IVPB 02/19/19 21:00 02/24/19 20:59 02/19/19 20:49 Zinc Sulfate (Zinc Sulfate) 220 mg DAILY ORAL 02/20/19 09:00 03/02/19 08:59 02/20/19 09:05 Last 24 Hour Vital Signs Date Time Temp Pulse Resp B/P (MAP) Pulse Ox O2 Delivery O2 Flow Rate FiO2 02/20/19 09:00 Room Air 02/20/19 09:00 86 17 122/46 (71) 100 02/20/19 08:00 98.0 72 18 116/58 (77) 100 02/20/19 08:00 Nasal Cannula 2.0 02/20/19 07:00 63 18 122/49 (73) 98 02/20/19 06:00 77 16 105/56 (72) 100 02/20/19 05:00 69 16 108/37 (60) 99 02/20/19 04:00 74 02/20/19 04:00 98.0 69 18 119/55 (76) 99 02/20/19 04:00 Nasal Cannula 2.0 02/20/19 03:00 79 18 128/54 (78) 99 02/20/19 02:00 87 22 126/71 (89) 99 02/20/19 01:00 77 22 167/55 (92) 99 02/20/19 00:00 Nasal Cannula 2.0 02/20/19 00:00 97.9 79 22 162/52 (88) 99 02/20/19 00:00 76 02/19/19 23:00 74 22 147/45 (79) 99 02/19/19 22:00 78 22 145/45 (78) 99 02/19/19 21:00 78 22 147/44 (78) 99 02/19/19 20:00 98.5 136 22 109/51 (70) 99 02/19/19 20:00 131 02/19/19 20:00 Room Air 02/19/19 20:00 Nasal Cannula 2.0 02/19/19 19:00 133 22 150/44 (79) 99 02/19/19 18:00 132 27 108/46 (66) 98 02/19/19 17:00 136 17 105/51 (69) 98 02/19/19 16:00 136 02/19/19 16:00 Nasal Cannula 2.0 02/19/19 16:00 99.0 136 17 105/51 (69) 98 02/19/19 15:00 129 22 101/41 (61) 98 02/19/19 14:00 101 18 110/41 (64) 99 02/19/19 13:00 99.4 141 19 100/35 (56) 100 02/19/19 12:00 141 02/19/19 12:00 100.6 146 20 106/60 (75) 98 02/19/19 09:00 93 100/81 02/19/19 09:00 Room Air 02/19/19 08:00 98.4 93 18 100/81 (87) 99 02/19/19 08:00 93 02/19/19 04:00 98.9 94 18 116/52 (73) 96 02/19/19 04:00 83 02/19/19 00:00 99.2 97 18 114/76 (89) 95 02/19/19 00:00 92 02/18/19 21:35 142 110/52 02/18/19 21:00 Room Air 02/18/19 20:00 89 02/18/19 20:00 98.4 102 18 110/52 (71) 97 02/18/19 16:00 98.6 80 18 107/56 (73) 98 02/18/19 16:00 81 02/18/19 12:00 63 02/18/19 12:00 97.9 68 20 137/48 (77) 100 02/18/19 11:47 Room Air Intake and Output 02/19/19 02/20/19 19:00 07:00 Intake Total 2194 ml 1410.000 ml Output Total 300 ml 600 ml Balance 1894 ml 810.000 ml Intake Oral 620 ml 180 ml IV Total 1574 ml 1230.000 ml Output Urine Total 300 ml 600 ml # Voids 4 5 Labs Test 02/17/19 18:05 02/18/19 04:53 02/19/19 08:58 02/19/19 11:45 Random Vancomycin Level 10.6 ug/mL 12.1 ug/mL White Blood Count 15.5 K/UL (4.8-10.8) 15.9 K/UL (4.8-10.8) Red Blood Count 2.99 M/UL (4.70-6.10) 3.00 M/UL (4.70-6.10) Hemoglobin 8.7 G/DL (14.2-18.0) 8.8 G/DL (14.2-18.0) Hematocrit 27.7 % (42.0-52.0) 28.2 % (42.0-52.0) Mean Corpuscular Volume 93 FL (80-99) 94 FL (80-99) Mean Corpuscular Hemoglobin 29.2 PG (27.0-31.0) 29.4 PG (27.0-31.0) Mean Corpuscular Hemoglobin Concent 31.5 G/DL (32.0-36.0) 31.4 G/DL (32.0-36.0) Red Cell Distribution Width 14.6 % (11.6-14.8) 14.7 % (11.6-14.8) Platelet Count 252 K/UL (150-450) 248 K/UL (150-450) Mean Platelet Volume 5.2 FL (6.5-10.1) 5.9 FL (6.5-10.1) Neutrophils (%) (Auto) 84.4 % (45.0-75.0) 80.7 % (45.0-75.0) Lymphocytes (%) (Auto) 9.5 % (20.0-45.0) 12.3 % (20.0-45.0) Monocytes (%) (Auto) 5.7 % (1.0-10.0) 5.9 % (1.0-10.0) Eosinophils (%) (Auto) 0.2 % (0.0-3.0) 0.7 % (0.0-3.0) Basophils (%) (Auto) 0.2 % (0.0-2.0) 0.3 % (0.0-2.0) Erythrocyte Sedimentation Rate 126 MM/HR (0-20) Prothrombin Time 11.2 SEC (9.30-11.50) Prothromb Time International Ratio 1.1 (0.9-1.1) Activated Partial Thromboplast Time 24 SEC (23-33) Sodium Level 147 MMOL/L (136-145) 147 MMOL/L (136-145) Potassium Level 3.4 MMOL/L (3.5-5.1) 3.6 MMOL/L (3.5-5.1) Chloride Level 115 MMOL/L (98-107) 115 MMOL/L (98-107) Carbon Dioxide Level 23 MMOL/L (21-32) 22 MMOL/L (21-32) Anion Gap 9 mmol/L (5-15) 10 mmol/L (5-15) Blood Urea Nitrogen 24 mg/dL (7-18) 36 mg/dL (7-18) Creatinine 1.5 MG/DL (0.55-1.30) 1.5 MG/DL (0.55-1.30) Estimat Glomerular Filtration Rate mL/min (>60) mL/min (>60) Glucose Level 105 MG/DL (74-106) 139 MG/DL (74-106) Calcium Level 8.9 MG/DL (8.5-10.1) 9.1 MG/DL (8.5-10.1) Total Bilirubin 0.4 MG/DL (0.2-1.0) Aspartate Amino Transf (AST/SGOT) 19 U/L (15-37) Alanine Aminotransferase (ALT/SGPT) < 6 U/L (12-78) Alkaline Phosphatase 56 U/L (46-116) C-Reactive Protein, Quantitative 30.2 mg/dL (0.00-0.90) Total Protein 6.0 G/DL (6.4-8.2) Albumin 1.0 G/DL (3.4-5.0) Globulin 5.0 g/dL Albumin/Globulin Ratio 0.2 (1.0-2.7) Lipase 36 U/L (73-393) Magnesium Level 1.8 MG/DL (1.8-2.4) Lactic Acid Level 2.40 mmol/L (0.4-2.0) Test 02/19/19 17:15 02/19/19 19:50 02/20/19 08:19 Lactic Acid Level 2.10 mmol/L (0.4-2.0) 2.10 mmol/L (0.66-2.22) 0.90 mmol/L (0.4-2.0) White Blood Count 15.0 K/UL (4.8-10.8) Red Blood Count 2.69 M/UL (4.70-6.10) Hemoglobin 7.8 G/DL (14.2-18.0) Hematocrit 24.9 % (42.0-52.0) Mean Corpuscular Volume 92 FL (80-99) Mean Corpuscular Hemoglobin 28.8 PG (27.0-31.0) Mean Corpuscular Hemoglobin Concent 31.2 G/DL (32.0-36.0) Red Cell Distribution Width 14.7 % (11.6-14.8) Platelet Count 230 K/UL (150-450) Mean Platelet Volume 5.5 FL (6.5-10.1) Neutrophils (%) (Auto) % (45.0-75.0) Lymphocytes (%) (Auto) % (20.0-45.0) Monocytes (%) (Auto) % (1.0-10.0) Eosinophils (%) (Auto) % (0.0-3.0) Basophils (%) (Auto) % (0.0-2.0) Sodium Level 148 MMOL/L (136-145) Potassium Level 3.5 MMOL/L (3.5-5.1) Chloride Level 116 MMOL/L (98-107) Carbon Dioxide Level 25 MMOL/L (21-32) Anion Gap 7 mmol/L (5-15) Blood Urea Nitrogen 36 mg/dL (7-18) Creatinine 1.3 MG/DL (0.55-1.30) Estimat Glomerular Filtration Rate mL/min (>60) Glucose Level 97 MG/DL (74-106) Calcium Level 9.2 MG/DL (8.5-10.1) Troponin I 0.051 ng/mL (0.000-0.056) Height (Feet): 6 Height (Inches): 0.00 Weight (Pounds): 165 Objective PE General: severe distress, chronically Ill ENT: moist mucus membranes Neck: limited range of motion Respiratory: respiratory distress, rhonchi++ noted, nc Cardiovascular: RRr, no mgr Gastrointestinal: normal inspection, soft Msk: normal inspection Neuro: responsive, motor weakness Psychiatric: depressed affect Skin: no rash Jake Womack MD Feb 20, 2019 09:43
--- NOTE | 2019-02-20 10:52 | Diagnostic Imaging Report ---
Indication: Shortness of breath Technique: One view of the chest Comparison: 02/19/2019 Findings: There is questionably new or slightly increased consolidation at the right lung base. The left hemidiaphragm is obscured, retrocardiac consolidation and possibly pleural fluid likely. The heart is upper limits normal in size. The upper lungs are clear. Impression: Suggestion of bilateral basilar consolidation or edema, new or increased since previous day's exam Possible developing left pleural effusion
--- NOTE | 2019-02-20 11:28 | Infectious Diseases Prog Note ---
Assessment/Plan Assessment/Plan antibiotics : vancomycin iv, zosyn A 1. MRSA sepsis 2. pneumonia 3. e.coli uti 4. hypertension 5. 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 continue iv vancomycin, zosyn 2. will follow up cultures Subjective ROS Limited/Unobtainable: Yes Allergies: Coded Allergies: No Known Allergies (Unverified , 01/18/19) Objective Vital Signs Last 24 Hour Vital Signs Date Time Temp Pulse Resp B/P (MAP) Pulse Ox O2 Delivery O2 Flow Rate FiO2 02/20/19 10:00 76 16 116/45 (68) 100 02/20/19 09:00 Room Air 02/20/19 09:00 86 17 122/46 (71) 100 02/20/19 08:00 98.0 72 18 116/58 (77) 100 02/20/19 08:00 Nasal Cannula 2.0 02/20/19 07:00 63 18 122/49 (73) 98 02/20/19 06:00 77 16 105/56 (72) 100 02/20/19 05:00 69 16 108/37 (60) 99 02/20/19 04:00 74 02/20/19 04:00 98.0 69 18 119/55 (76) 99 02/20/19 04:00 Nasal Cannula 2.0 02/20/19 03:00 79 18 128/54 (78) 99 02/20/19 02:00 87 22 126/71 (89) 99 02/20/19 01:00 77 22 167/55 (92) 99 02/20/19 00:00 Nasal Cannula 2.0 02/20/19 00:00 97.9 79 22 162/52 (88) 99 02/20/19 00:00 76 02/19/19 23:00 74 22 147/45 (79) 99 02/19/19 22:00 78 22 145/45 (78) 99 02/19/19 21:00 78 22 147/44 (78) 99 02/19/19 20:00 98.5 136 22 109/51 (70) 99 02/19/19 20:00 131 02/19/19 20:00 Room Air 02/19/19 20:00 Nasal Cannula 2.0 02/19/19 19:00 133 22 150/44 (79) 99 02/19/19 18:00 132 27 108/46 (66) 98 02/19/19 17:00 136 17 105/51 (69) 98 02/19/19 16:00 136 02/19/19 16:00 Nasal Cannula 2.0 02/19/19 16:00 99.0 136 17 105/51 (69) 98 02/19/19 15:00 129 22 101/41 (61) 98 02/19/19 14:00 101 18 110/41 (64) 99 02/19/19 13:00 99.4 141 19 100/35 (56) 100 02/19/19 12:00 141 02/19/19 12:00 100.6 146 20 106/60 (75) 98 Height (Feet): 6 Height (Inches): 0.00 Weight (Pounds): 165 Respiratory/Chest: lungs clear Cardiovascular: normal rate, regular rhythm, no gallop/murmur Abdomen: soft, non tender Extremities: other - + edema bilaterally Laboratory Tests Test 02/19/19 11:45 02/19/19 17:15 02/19/19 19:50 02/20/19 08:19 Lactic Acid Level 2.40 mmol/L (0.4-2.0) H 2.10 mmol/L (0.4-2.0) H 2.10 mmol/L (0.66-2.22) 0.90 mmol/L (0.4-2.0) White Blood Count 15.0 K/UL (4.8-10.8) H Red Blood Count 2.69 M/UL (4.70-6.10) L Hemoglobin 7.8 G/DL (14.2-18.0) L Hematocrit 24.9 % (42.0-52.0) L Mean Corpuscular Volume 92 FL (80-99) Mean Corpuscular Hemoglobin 28.8 PG (27.0-31.0) Mean Corpuscular Hemoglobin Concent 31.2 G/DL (32.0-36.0) L Red Cell Distribution Width 14.7 % (11.6-14.8) Platelet Count 230 K/UL (150-450) Mean Platelet Volume 5.5 FL (6.5-10.1) L Neutrophils (%) (Auto) % (45.0-75.0) Lymphocytes (%) (Auto) % (20.0-45.0) Monocytes (%) (Auto) % (1.0-10.0) Eosinophils (%) (Auto) % (0.0-3.0) Basophils (%) (Auto) % (0.0-2.0) Neutrophils % (Manual) Pending Lymphocytes % (Manual) Pending Platelet Estimate Pending Platelet Morphology Pending Sodium Level 148 MMOL/L (136-145) H Potassium Level 3.5 MMOL/L (3.5-5.1) Chloride Level 116 MMOL/L (98-107) H Carbon Dioxide Level 25 MMOL/L (21-32) Anion Gap 7 mmol/L (5-15) Blood Urea Nitrogen 36 mg/dL (7-18) H Creatinine 1.3 MG/DL (0.55-1.30) Estimat Glomerular Filtration Rate mL/min (>60) Glucose Level 97 MG/DL (74-106) Calcium Level 9.2 MG/DL (8.5-10.1) Troponin I 0.051 ng/mL (0.000-0.056) Current Medications Medications (Trade) Dose Ordered Sig/Vaughn Route PRN Reason Start Time Stop Time Status Last Admin Dose Admin Amiodarone HCl (Cordarone) 200 mg EVERY 12 HOURS ORAL 02/19/19 21:00 03/21/19 20:59 02/20/19 09:05 Ascorbic Acid (Vitamin C) 250 mg TWICE A DAY ORAL 02/19/19 18:00 03/19/19 17:59 02/20/19 09:05 Multivitamins (Multivitamins) 1 tab DAILY ORAL 02/20/19 09:00 03/20/19 08:59 02/20/19 09:05 Piperacillin Sod/ Tazobactam Sod 3.375 gm/Sodium Chloride 110 ml @ 27.5 mls/hr Q8HR@0000,0800,1600 IVPB 02/20/19 00:00 02/26/19 13:59 02/20/19 08:50 Sodium Chloride 1,000 ml @ 75 mls/hr [id number] IV 02/19/19 14:30 03/21/19 14:29 02/20/19 04:05 Vancomycin HCl (Vanco rx to dose) 1 ea DAILY PRN MISC Per rx protocol 02/20/19 09:00 03/18/19 16:14 Vancomycin HCl 750 mg/Sodium Chloride 275 ml @ 183.333 mls/hr Q24H IVPB 02/19/19 21:00 02/24/19 20:59 02/19/19 20:49 Zinc Sulfate (Zinc Sulfate) 220 mg DAILY ORAL 02/20/19 09:00 03/02/19 08:59 02/20/19 09:05 Ambrocio Lemon MD Feb 20, 2019 11:28
--- NOTE | 2019-02-20 12:16 | Surgery Progress Note ---
Surgery Progress Note Subjective Additional Comments in ICU awake, responsive leukocytosis anemia confused cxr okay on fluids Objective Last 24 Hour Vital Signs Date Time Temp Pulse Resp B/P (MAP) Pulse Ox O2 Delivery O2 Flow Rate FiO2 02/20/19 11:00 63 16 110/51 (70) 100 02/20/19 10:00 76 16 116/45 (68) 100 02/20/19 09:00 Room Air 02/20/19 09:00 86 17 122/46 (71) 100 02/20/19 08:00 98.0 72 18 116/58 (77) 100 02/20/19 08:00 Nasal Cannula 2.0 02/20/19 07:50 100 Nasal Cannula 2.0 28 02/20/19 07:00 63 18 122/49 (73) 98 02/20/19 06:00 77 16 105/56 (72) 100 02/20/19 05:00 69 16 108/37 (60) 99 02/20/19 04:00 74 02/20/19 04:00 98.0 69 18 119/55 (76) 99 02/20/19 04:00 Nasal Cannula 2.0 02/20/19 03:00 79 18 128/54 (78) 99 02/20/19 02:00 87 22 126/71 (89) 99 02/20/19 01:00 77 22 167/55 (92) 99 02/20/19 00:00 Nasal Cannula 2.0 02/20/19 00:00 97.9 79 22 162/52 (88) 99 02/20/19 00:00 76 02/19/19 23:00 74 22 147/45 (79) 99 02/19/19 22:00 78 22 145/45 (78) 99 02/19/19 21:00 78 22 147/44 (78) 99 02/19/19 20:00 98.5 136 22 109/51 (70) 99 02/19/19 20:00 131 02/19/19 20:00 Room Air 02/19/19 20:00 Nasal Cannula 2.0 02/19/19 19:00 133 22 150/44 (79) 99 02/19/19 18:00 132 27 108/46 (66) 98 02/19/19 17:00 136 17 105/51 (69) 98 7/14/19 16:00 136 02/19/19 16:00 Nasal Cannula 2.0 02/19/19 16:00 99.0 136 17 105/51 (69) 98 02/19/19 15:00 129 22 101/41 (61) 98 02/19/19 14:00 101 18 110/41 (64) 99 02/19/19 13:00 99.4 141 19 100/35 (56) 100 I&O Intake and Output 02/19/19 02/20/19 19:00 07:00 Intake Total 2194 ml 1410.000 ml Output Total 300 ml 600 ml Balance 1894 ml 810.000 ml Intake Oral 620 ml 180 ml IV Total 1574 ml 1230.000 ml Output Urine Total 300 ml 600 ml # Voids 4 5 Dressing: saturated Cardiovascular: RSR Respiratory: clear, decreased breath sounds Abdomen: soft, present bowel sounds, non-distended Extremities: no tenderness, no cyanosis Laboratory Tests Test 02/19/19 17:15 02/19/19 19:50 02/20/19 08:19 Lactic Acid Level 2.10 mmol/L (0.4-2.0) H 2.10 mmol/L (0.66-2.22) 0.90 mmol/L (0.4-2.0) White Blood Count 15.0 K/UL (4.8-10.8) H Red Blood Count 2.69 M/UL (4.70-6.10) L Hemoglobin 7.8 G/DL (14.2-18.0) L Hematocrit 24.9 % (42.0-52.0) L Mean Corpuscular Volume 92 FL (80-99) Mean Corpuscular Hemoglobin 28.8 PG (27.0-31.0) Mean Corpuscular Hemoglobin Concent 31.2 G/DL (32.0-36.0) L Red Cell Distribution Width 14.7 % (11.6-14.8) Platelet Count 230 K/UL (150-450) Mean Platelet Volume 5.5 FL (6.5-10.1) L Neutrophils (%) (Auto) % (45.0-75.0) Lymphocytes (%) (Auto) % (20.0-45.0) Monocytes (%) (Auto) % (1.0-10.0) Eosinophils (%) (Auto) % (0.0-3.0) Basophils (%) (Auto) % (0.0-2.0) Neutrophils % (Manual) Pending Lymphocytes % (Manual) Pending Platelet Estimate Pending Platelet Morphology Pending Sodium Level 148 MMOL/L (136-145) H Potassium Level 3.5 MMOL/L (3.5-5.1) Chloride Level 116 MMOL/L (98-107) H Carbon Dioxide Level 25 MMOL/L (21-32) Anion Gap 7 mmol/L (5-15) Blood Urea Nitrogen 36 mg/dL (7-18) H Creatinine 1.3 MG/DL (0.55-1.30) Estimat Glomerular Filtration Rate mL/min (>60) Glucose Level 97 MG/DL (74-106) Calcium Level 9.2 MG/DL (8.5-10.1) Troponin I 0.051 ng/mL (0.000-0.056) Plan Problems: (1) Renal insufficiency (2) UTI (urinary tract infection) (3) Dehydration (4) Decubitus skin ulcer Assessment & Plan: Pt presented on admission with multiple pressure injuries and ulcerations to lower extremities. Unstageable pressure injury with irregular borders noted to sacrum . Base of wound has 100% mixed slough and necrosis.Edges adherent and dark . Periwound indurated with darker skin tone. Pt complained of pain when minimally palpated. Mild odor noted(L)11.1cm x (W)9cm. Full thickness ulcer R tibia. Base of wound has 100% yellow slough. Edges adherent and flat ,Periwound without erythema or fluctuance.(L)2.5cm x (W)1.5cm. Stable dry eschar noted to R hallux. edges are dark but adherent to base of wound. Periwound dark without erythema or fluctuance.(L)1.5cm x (W)2cm. Stable dry eschar noted to R st metatarsal head. Periwound pale without fluctuance. (L)1.5cm x (W)2.5cm. Stable dry eschar noted to dorsal aspects of R 3rd and 4th metatarsals. Full thickness ulcer lateral R 5th metatarsal. base of wound 50% erythematous 50 % necrotic. Edges are black . No odor or exudate noted(L)1.5cm x (W)1.6cm. Stable dry eschar R heel . Periwound fluctuant without erythema. Pt complained of pain when minimally palpated.(L)3.5cm x (W)5.5cm. Stable dry eschar noted to dorso/flexor L foot. Periwound without erythema , induration or fluctuance (L)2.8cm x (W)1cm. Reabsorbing blood blister noted to medial L foot. Base of wound 25% fluctuant , 75% reabsorbed. Periwound without erythema or fluctuance(L)2cm x (W)3.1cm. L heel is dry and blanchable with historical scarring from previous wounds .Dry flaky skin noted to both feet. Tx.Plan: Swab all wounds both lower ext and feet with Betadine. Cover each wound with Optifoam drsgs every 3 days and prn. Cleanse Sacral wound with Saline. Apply Therahoney. Apply Moisture Barrier Paste periwound. Cover with Optifoam Drsg. Change Daily and prn. APM/PHIL mattress overlay. Reposition at least every 2hours or as tolerated. Off-load heels with pillow. (5) Severe sepsis Assessment & Plan: leukocytosis bacteremia on IV abx IV fluid ICU now DAILY ESTIMATED NEEDS: Needs based on wounds, sepsis 75kg 30-35 kcals/kg 1020-2559 total kcals 1.25-2 g protein/kg 94-150 g total protein 25-30ml/kcal mL/kg 9745-8074 total fluid mLs NUTRITION DIAGNOSIS: 1) Increased kcal/ pro needs r/t wound healing as evidenced by sacral unstageable, Full thickness L tibia wounds, elev WBC, adm w/ hypotension. 2) Swallowing difficulty r/t dysphagia as evidenced by pt on puree texture w/ NTL DIRECTOR LEARNING SERVICES. (CURRENT DIET: Regular puree) PO DIET RECOMMENDATIONS--->>>[place]/ Regular diet (texture per MEDICAL RECORD TECHNICIAN) ADDITIONAL RECOMMENDATIONS: 1) Pt w/ variable recorded wts-> Please obtain a CALIBRATED bed wt EMR:165#, Bed wt: 199#, [place] adm wt: 158 lbs. 2) MEDICAL RECORD TECHNICIAN eval for appropriate texture-> on [place] liquids DIRECTOR LE[employer] 3) WOUND CARE: Add BRUCE BID Add VIT C 250mg BID + Add MVI w/ min daily Add ZnSO4 220mg daily x10 days 4) Rec added Ensure Enlive BID (350 kcal each) to better meet est needs. Tawanda Alfaro Feb 20, 2019 12:16
--- NOTE | 2019-02-20 13:07 | Pulmonology Progress Note ---
Assessment/Plan Assessment/Plan Sepsis with shock, improved UTI causing sepsis dementia atelectasis and scar hx SVT ICU for AF and low BP now SR and normotensive CXR maybe fluid overload continue abx reduce IVF HHN poor candidate for invasive pulmonary procedure Subjective ROS Limited/Unobtainable: Yes Allergies: Coded Allergies: No Known Allergies (Unverified , 01/18/19) Objective Last 24 Hour Vital Signs Date Time Temp Pulse Resp B/P (MAP) Pulse Ox O2 Delivery O2 Flow Rate FiO2 02/20/19 12:00 97.7 66 14 132/42 (72) 100 02/20/19 11:00 63 16 110/51 (70) 100 02/20/19 10:00 76 16 116/45 (68) 100 02/20/19 09:00 Room Air 02/20/19 09:00 86 17 122/46 (71) 100 02/20/19 08:00 98.0 72 18 116/58 (77) 100 02/20/19 08:00 Nasal Cannula 2.0 02/20/19 07:50 100 Nasal Cannula 2.0 28 02/20/19 07:00 63 18 122/49 (73) 98 02/20/19 06:00 77 16 105/56 (72) 100 02/20/19 05:00 69 16 108/37 (60) 99 02/20/19 04:00 74 02/20/19 04:00 98.0 69 18 119/55 (76) 99 02/20/19 04:00 Nasal Cannula 2.0 02/20/19 03:00 79 18 128/54 (78) 99 02/20/19 02:00 87 22 126/71 (89) 99 02/20/19 01:00 77 22 167/55 (92) 99 02/20/19 00:00 Nasal Cannula 2.0 02/20/19 00:00 97.9 79 22 162/52 (88) 99 02/20/19 00:00 76 02/19/19 23:00 74 22 147/45 (79) 99 02/19/19 22:00 78 22 145/45 (78) 99 02/19/19 21:00 78 22 147/44 (78) 99 02/19/19 20:00 98.5 136 22 109/51 (70) 99 02/19/19 20:00 131 02/19/19 20:00 Room Air 02/19/19 20:00 Nasal Cannula 2.0 02/19/19 19:00 133 22 150/44 (79) 99 02/19/19 18:00 132 27 108/46 (66) 98 02/19/19 17:00 136 17 105/51 (69) 98 02/19/19 16:00 136 02/19/19 16:00 Nasal Cannula 2.0 02/19/19 16:00 99.0 136 17 105/51 (69) 98 02/19/19 15:00 129 22 101/41 (61) 98 02/19/19 14:00 101 18 110/41 (64) 99 Intake and Output 02/19/19 02/20/19 18:59 06:59 Intake Total 2119 ml 1410.000 ml Output Total 300 ml 600 ml Balance 1819 ml 810.000 ml Intake Oral 620 ml 180 ml IV Total 1499 ml 1230.000 ml Output Urine Total 300 ml 600 ml # Voids 4 5 General Appearance: no acute distress Respiratory/Chest: lungs clear, decreased breath sounds Cardiovascular: normal rate Laboratory Tests 02/19/19 17:15: Lactic Acid Level 2.10H 02/19/19 19:50: Lactic Acid Level 2.10 02/20/19 08:19: Lactic Acid Level 0.90, White Blood Count 15.0H, Red Blood Count 2.69L, Hemoglobin 7.8L, Hematocrit 24.9L, Mean Corpuscular Volume 92, Mean Corpuscular Hemoglobin 28.8, Mean Corpuscular Hemoglobin Concent 31.2L, Red Cell Distribution Width 14.7, Platelet Count 230, Mean Platelet Volume 5.5L, Neutrophils (%) (Auto) , Lymphocytes (%) (Auto) , Monocytes (%) (Auto) , Eosinophils (%) (Auto) , Basophils (%) (Auto) , Neutrophils % (Manual) [Pending] , Lymphocytes % (Manual) [Pending], Platelet Estimate [Pending], Platelet Morphology [Pending], Sodium Level 148H, Potassium Level 3.5, Chloride Level 116H, Carbon Dioxide Level 25, Anion Gap 7, Blood Urea Nitrogen 36H, Creatinine 1.3, Estimat Glomerular Filtration Rate , Glucose Level 97, Calcium Level 9.2, Troponin I 0.051 Current Medications Medications (Trade) Dose Ordered Sig/Vaughn Route PRN Reason Start Time Stop Time Status Last Admin Dose Admin Amiodarone HCl (Cordarone) 200 mg EVERY 12 HOURS ORAL 02/19/19 21:00 03/21/19 20:59 02/20/19 09:05 Ascorbic Acid (Vitamin C) 250 mg TWICE A DAY ORAL 02/19/19 18:00 03/19/19 17:59 02/20/19 09:05 Multivitamins (Multivitamins) 1 tab DAILY ORAL 02/20/19 09:00 03/20/19 08:59 02/20/19 09:05 Piperacillin Sod/ Tazobactam Sod 3.375 gm/Sodium Chloride 110 ml @ 27.5 mls/hr Q8HR@0000,0800,1600 IVPB 02/20/19 00:00 02/26/19 13:59 02/20/19 08:50 Sodium Chloride 1,000 ml @ 75 mls/hr [id number] IV 02/19/19 14:30 03/21/19 14:29 02/20/19 04:05 Vancomycin HCl (Vanco rx to dose) 1 ea DAILY PRN MISC Per rx protocol 02/20/19 09:00 03/18/19 16:14 Vancomycin HCl 750 mg/Sodium Chloride 275 ml @ 183.333 mls/hr Q24H IVPB 02/19/19 21:00 02/24/19 20:59 02/19/19 20:49 Zinc Sulfate (Zinc Sulfate) 220 mg DAILY ORAL 02/20/19 09:00 03/02/19 08:59 02/20/19 09:05 Barry Najera MD Feb 20, 2019 13:07
--- NOTE | 2019-02-20 13:39 | NUR ---
RD ASSESSMENT & RECOMMENDATIONS SEE CARE ACTIVITY FOR COMPLETE ASSESSMENT DAILY ESTIMATED NEEDS: Needs based on wounds, sepsis 75kg 30-35 kcals/kg 0737-4943 total kcals 1.25-2 g protein/kg 94-150 g total protein 25-30ml/kcal mL/kg 3714-9650 total fluid mLs NUTRITION DIAGNOSIS: 1) Increased kcal/ pro needs r/t wound healing as evidenced by sacral unstageable, Full thickness L tibia wounds, elev WBC, adm w/ hypotension. 2) Swallowing difficulty r/t dysphagia as evidenced by pt on puree texture w/ NTL SHORE HAND DREDGE OR BARGE. CURRENT DIET: Regular puree PO DIET RECOMMENDATIONS: [place]/ Regular diet (texture per COMPENSATOR) ADDITIONAL RECOMMENDATIONS: 1) Pt w/ variable recorded wts-> Please obtain a CALIBRATED bed wt EMR:165#, Bed wt: 199#, [place] adm wt: 158 lbs. 2) COMPENSATOR eval for appropriate texture-> on [place] liquids SHORE HAND DREDGE OR BARGE 3) WOUND CARE: Add BRUCE BID Add VIT C 250mg BID + Add MVI w/ min daily Add ZnSO4 220mg daily x10 days
--- NOTE | 2019-02-20 15:39 | NUR ---
CASE MGMT NOTE RECEIVED MESSAGE FROM DR RAMIREZ REQUESTING PATIENT RECEIVE TRANSFUSION ELECTRIC [employer] CAR OPERATOR CALLED ICU CHARGE NURSE AND ASKED THAT SHE CONTACT DR OQUENDO FOR TRANSFUSION ORDER
--- NOTE | 2019-02-20 16:14 | NUR ---
NURSE NOTES:LUIS RN IN CHARGE RECEIVED A TELEPHONE ORDERS TO TRANSFUSE WITH 1 UNIT OF PRBC TONIGHT. PLACED A TELEPHONE CALL TO CONOR SOLIS AND LEFT MESSAGE ON HER VOICE REGARDING DR RAMIREZ ORDER TO GIVE A BLOOD TRANSFUSION AND WE NEED A TELEPHONE CONSENT. A WAITING FOR PT TO CALL ME BACK. WILL CONT TO MONITOR.
--- NOTE | 2019-02-20 17:30 | NUR ---
NURSE NOTES: Lizz RAMIREZ CAME TO SEE THE PT AND PT DAUGHTER AT BED SIDE.Lizz EXPLAINED TO ISA PT DAUGHTER REGARDING BLOOD TRANSFUSION.PT DAUGHTER AGREE WITH BLOOD TRANSFUSION. ISA SIGNED CONSENT FOR BLOOD TRANSFUSION. WILL CONT TO MONITOR.
--- NOTE | 2019-02-20 19:15 | NUR ---
HAND-OFF: Report given to .ZAHRA BERGER.
--- NOTE | 2019-02-20 20:15 | NUR ---
HAND-OFF: Tranferred to JENN Report given to INOCENTE TORRES RN.
--- NOTE | 2019-02-20 20:30 | NUR ---
NURSE NOTES: Pt transferred for ICU. Given report from CELINE Orozco. Pt is resting on the bed and awake and confused. Given realty orientation. Checked belongings. On Tele monitor with SR w/ 1st AVB. IV site intact and no sign of infiltration noted. Dressing is clean and dry on wounds area. Pt has condom cath and light samson color urine noted. Denied pain at this time. Changed position. Previous nurse said Pt has 1 unit blood transfusion order and awaiting approve from Blood bank. Placed fall precaution. Will continue to care plan.
--- NOTE | 2019-02-20 20:50 | Cardiology Progress Note ---
Assessment/Plan Assessment/Plan 1. 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 3. Probable urinary tract infection. 4. Dementia. 5. Questionable history of recent mass in the lungs. 6. History of hypertension. trop neg tele showed sinus on amio bid fro 1 week then daily iv abx tele monitoring Subjective Cardiovascular: Denies: chest pain, lightheadedness, palpitations Respiratory: Denies: shortness of breath Gastrointestinal/Abdominal: Denies: abdominal pain Genitourinary: Denies: burning Objective Last 24 Hour Vital Signs Date Time Temp Pulse Resp B/P (MAP) Pulse Ox O2 Delivery O2 Flow Rate FiO2 02/20/19 20:07 100 Nasal Cannula 2.0 28 02/20/19 20:00 80 17 111/52 (71) 100 02/20/19 20:00 75 02/20/19 20:00 76 02/20/19 20:00 Nasal Cannula 2.0 02/20/19 20:00 97.9 76 16 99/31 (53) 100 02/20/19 19:00 97.9 77 17 99/31 (53) 100 02/20/19 18:00 80 17 111/52 (71) 100 02/20/19 17:00 79 18 105/36 (59) 100 02/20/19 16:00 Nasal Cannula 2.0 02/20/19 16:00 75 02/20/19 16:00 97.7 74 16 106/37 (60) 100 02/20/19 15:00 80 19 116/39 (64) 100 02/20/19 14:00 81 19 126/45 (72) 100 02/20/19 13:00 75 17 122/56 (78) 02/20/19 12:00 Nasal Cannula 2.0 02/20/19 12:00 97.7 66 14 132/42 (72) 100 02/20/19 12:00 77 02/20/19 11:00 63 16 110/51 (70) 100 02/20/19 10:00 76 16 116/45 (68) 100 02/20/19 09:00 Room Air 02/20/19 09:00 86 17 122/46 (71) 100 02/20/19 08:00 98.0 72 18 116/58 (77) 100 02/20/19 08:00 64 02/20/19 08:00 Nasal Cannula 2.0 02/20/19 07:50 100 Nasal Cannula 2.0 28 02/20/19 07:00 63 18 122/49 (73) 98 02/20/19 06:00 77 16 105/56 (72) 100 02/20/19 05:00 69 16 108/37 (60) 99 02/20/19 04:00 74 02/20/19 04:00 98.0 69 18 119/55 (76) 99 02/20/19 04:00 Nasal Cannula 2.0 02/20/19 03:00 79 18 128/54 (78) 99 02/20/19 02:00 87 22 126/71 (89) 99 02/20/19 01:00 77 22 167/55 (92) 99 02/20/19 00:00 Nasal Cannula 2.0 02/20/19 00:00 97.9 79 22 162/52 (88) 99 02/20/19 00:00 76 02/19/19 23:00 74 22 147/45 (79) 99 02/19/19 22:00 78 22 145/45 (78) 99 02/19/19 21:00 78 22 147/44 (78) 99 General Appearance: alert Neck: supple Cardiovascular: normal rate Respiratory/Chest: lungs clear Extremities: moderate edema Intake and Output 02/19/19 02/20/19 19:00 07:00 Intake Total 2194 ml 1410.000 ml Output Total 300 ml 600 ml Balance 1894 ml 810.000 ml Intake Oral 620 ml 180 ml IV Total 1574 ml 1230.000 ml Output Urine Total 300 ml 600 ml # Voids 4 5 Laboratory Tests Test 02/20/19 08:19 White Blood Count 15.0 K/UL (4.8-10.8) H Red Blood Count 2.69 M/UL (4.70-6.10) L Hemoglobin 7.8 G/DL (14.2-18.0) L Hematocrit 24.9 % (42.0-52.0) L Mean Corpuscular Volume 92 FL (80-99) Mean Corpuscular Hemoglobin 28.8 PG (27.0-31.0) Mean Corpuscular Hemoglobin Concent 31.2 G/DL (32.0-36.0) L Red Cell Distribution Width 14.7 % (11.6-14.8) Platelet Count 230 K/UL (150-450) Mean Platelet Volume 5.5 FL (6.5-10.1) L Neutrophils (%) (Auto) % (45.0-75.0) Lymphocytes (%) (Auto) % (20.0-45.0) Monocytes (%) (Auto) % (1.0-10.0) Eosinophils (%) (Auto) % (0.0-3.0) Basophils (%) (Auto) % (0.0-2.0) Differential Total Cells Counted 100 Neutrophils % (Manual) 78 % (45-75) H Lymphocytes % (Manual) 14 % (20-45) L Monocytes % (Manual) 5 % (1-10) Eosinophils % (Manual) 3 % (0-3) Basophils % (Manual) 0 % (0-2) Band Neutrophils 0 % (0-8) Platelet Estimate Adequate Platelet Morphology Normal Hypochromasia 3+ Anisocytosis 1+ Sodium Level 148 MMOL/L (136-145) H Potassium Level 3.5 MMOL/L (3.5-5.1) Chloride Level 116 MMOL/L (98-107) H Carbon Dioxide Level 25 MMOL/L (21-32) Anion Gap 7 mmol/L (5-15) Blood Urea Nitrogen 36 mg/dL (7-18) H Creatinine 1.3 MG/DL (0.55-1.30) Estimat Glomerular Filtration Rate mL/min (>60) Glucose Level 97 MG/DL (74-106) Lactic Acid Level 0.90 mmol/L (0.4-2.0) Calcium Level 9.2 MG/DL (8.5-10.1) Troponin I 0.051 ng/mL (0.000-0.056) Luis Alberto Mcleod MD Feb 20, 2019 20:50
[2019-02-20] MEDS ORDERED: Vancomycin 750 MG in NS 275 ML IVPB SCH (21:00)
--- NOTE | 2019-02-20 22:00 | NUR ---
NURSE NOTES: Pt Pt is resting on the bed and awake and confused. Educated Pt regarding blood transfusion and symptom of side effect but didn't understanding at this timed. Verified with other nurse Schuyler for Pt's name. arm band, MR number, unit number, blood type and and date. Checked V/S BP:114/49, HR: 87, BT: 98.0 and SaO2 100% with o2 2L via nasal cannula. Started 1 unit PRBC blood transfusion. Will continue to monitor any change of condition.
--- NOTE | 2019-02-20 22:15 | NUR ---
NURSE NOTES: On running with PRBC blood transfusion without adverse reaction. Checked V/S BP:124/50, HR: 77, BT: 98.0 and SaO2 100% with O2 2L via nasal cannula. Will continue to monitor any change of condition.
[2019-02-21] VITALS (7 sets, daily range): BP systolic 105–133; BP diastolic 45–85
--- NOTE | 2019-02-21 00:30 | Progress Note ---
DATE: 02/20/2019 SUBJECTIVE: Daughter is on bedside. Charge nurse also in the room. Discussed with both treatment plan. The patient is currently awake, alert, and confused x1. He is mostly bedridden and he has been . He is currently improving. PHYSICAL EXAMINATION: VITAL SIGNS: Blood pressure is 105/36, pulse 79, respirations 18, and no fever. The patient was transferred to the ICU because of ventricular tachycardia and the patient is currently comfortable. SKIN: Good skin turgor. HEENT: NAD. CHEST: Bilateral few crackles. CARDIOVASCULAR: Regular rhythm. No gallop. No murmur. ABDOMEN: Soft. Positive bowel sounds, nontender. EXTREMITIES: No edema, but he has sacral decubitus stage IV. GENITOURINARY: Deferred. LABORATORY AND DIAGNOSTIC DATA: Hemoglobin is 7.8, hematocrit 25, white counts are 15,000. His chemistry panel; troponin 0.90. Sodium 148, potassium 3.5, BUN 36, creatinine 1.3. Lactic acid is almost normal 0.90. ASSESSMENT: 1. Septic shock. 2. Anemia. 3. Cardiac arrhythmia. 4. Encephalopathy. 5. Sacral decubitus. 6. Mild dysphagia. PLAN: We will currently order type and cross transfuse one unit. Risks versus benefits are explained to the daughter who is at bedside. Also consider wound care, Dr. Arroyo for wound care. Continue current treatment. Continue the patient's Zosyn and vancomycin. Also added metoprolol, amiodarone, and Cardiology is on case. Discussed with the charge nurse and discussed with the daughter. Pedrito Mims M.D. DR: Chris JOB#: [id number] CC:
--- NOTE | 2019-02-21 00:35 | NUR ---
NURSE NOTES: Finished blood transfusion without adverse reaction. Will continue to monitor nay change of condition.
[2019-02-21] MEDS: Piperacillin/Tazobactam 3.375 GM in NS 110 ML IVPB SCH ×3 (00:37→16:20)
[2019-02-21 05:45] LABS: BASOPHILS % (AUTO) 0.2 % (0.0-2.0); EOSINOPHILS % (AUTO) 2.1 % (0.0-3.0); HEMATOCRIT 27.1 % (42.0-52.0); HEMOGLOBIN 8.5 G/DL (14.2-18.0); LYMPHOCYTES % (AUTO) 12.1 % (20.0-45.0); MEAN CORPUSCULAR VOLUME 93 FL (80-99); MONOCYTES % (AUTO) 5.2 % (1.0-10.0); NEUTROPHILS % (AUTO) 80.3 % (45.0-75.0); PLATELET COUNT 234 K/UL (150-450); RED BLOOD COUNT 2.92 M/UL (4.70-6.10); RED CELL DISTRIBUTION WIDTH 14.8 % (11.6-14.8); WHITE BLOOD COUNT 12.5 K/UL (4.8-10.8)
[2019-02-21 06:25] LABS: ALANINE AMINOTRANSFERASE 10 U/L (12-78); ALBUMIN 1.2 G/DL (3.4-5.0); ALBUMIN/GLOBULIN RATIO 0.2 (1.0-2.7); ALKALINE PHOSPHATASE 52 U/L (46-116); ANION GAP 8 mmol/L (5-15); ASPARTATE AMINO TRANSFERASE 28 U/L (15-37); BILIRUBIN,TOTAL 0.5 MG/DL (0.2-1.0); BLOOD UREA NITROGEN 34 mg/dL (7-18); CALCIUM 8.7 MG/DL (8.5-10.1); CARBON DIOXIDE 24 MMOL/L (21-32); CHLORIDE 111 MMOL/L (98-107); CREATININE 1.2 MG/DL (0.55-1.30); POTASSIUM 3.7 MMOL/L (3.5-5.1); SODIUM 143 MMOL/L (136-145)
--- NOTE | 2019-02-21 07:15 | NUR ---
HAND-OFF: Report given to Melanie Murrieta. Pt is sleeping on the bed and no sign of acute distress noted.
--- NOTE | 2019-02-21 07:17 | NUR ---
NURSE NOTES: Received report from CELINE Madsen. Observed patient in bed, awake, verbally responsive. On O2 2L via NC, no respiratory distress noted at this time. youth nutritional monitor shows sinus rhythm, no reported dysrhythmia by PM nurse. Left hand 22g and left forearm 20g intact and patent with IV fluids running at prescribed rate. External catheter intact and draining well. Safety precautions in place. Bed locked, alarmed, and in lowest position, padded side rails up x3, and call light left within reach. Will continue to monitor patient.
[2019-02-21] MEDS: Ascorbic Acid 500mg tab ORAL SCH ×2 (08:18→18:15)
--- NOTE | 2019-02-21 08:41 | Hematology/Onc Progress Note ---
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 Favor scarring, but the possibility of neoplasm cannot be ruled out. 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 Iron Overload --> ferrtin 1327 continue to monitor consider chelation therapy prior to blood tx. --> off iv iron # ZACK --> as per renal recs # Respiratory failure is on nc/bipap --> per pulm # Hypotension on fluids now better The timing of this note does not necessarily reflect the time of the patient was seen. GREATLY APPRECIATE CONSULTATION. Subjective Constitutional: Denies: no symptoms, chills, fever, malaise, weakness, other Cardiovascular: Denies: no symptoms, chest pain, edema, irregular heart rate, lightheadedness, palpitations, syncope, other Respiratory: Denies: no symptoms, cough, shortness of breath, SOB with excertion, SOB at rest, sputum, wheezing, other Gastrointestinal/Abdominal: Denies: no symptoms, abdomen distended, abdominal pain, black stools, tarry stools, blood in stool, constipated, diarrhea, difficulty swallowing, nausea, poor appetite, poor fluid intake, rectal bleeding , vomiting, other Genitourinary: Denies: no symptoms, burning, discharge, frequency, flank pain, hematuria, incontinence, pain, urgency, other Endocrine: Denies: no symptoms, excessive sweating, flushing, intolerance to cold, intolerance to heat, increased hunger, increased thirst, increased urine, unexplained weight gain, unexplained weight loss, other Hematologic/Lymphatic: Denies: no symptoms, anemia, easy bleeding, easy bruising, adenopathy, other Allergies: Coded Allergies: No Known Allergies (Unverified , 01/18/19) Subjective 02/18: no events, no f/c, no night sweats reported, labs have been reviewed 02/20: bp is stable, remains confused, labs reviewed 02/21: tolerated prbc well last night, no events noted, no f/c, on abx Objective Objective Current Medications Medications (Trade) Dose Ordered Sig/Vaughn Route PRN Reason Start Time Stop Time Status Last Admin Dose Admin Amiodarone HCl (Cordarone) 200 mg EVERY 12 HOURS ORAL 02/20/19 21:00 03/21/19 20:59 02/20/19 20:54 Ascorbic Acid (Vitamin C) 250 mg TWICE A DAY ORAL 02/21/19 09:00 03/19/19 17:59 02/21/19 08:18 Multivitamins (Multivitamins) 1 tab DAILY ORAL 02/21/19 09:00 03/20/19 08:59 02/21/19 08:18 Piperacillin Sod/ Tazobactam Sod 3.375 gm/Sodium Chloride 110 ml @ 27.5 mls/hr Q8HR@0000,0800,1600 IVPB 02/21/19 00:00 02/26/19 13:59 02/21/19 08:11 Sodium Chloride 1,000 ml @ 50 mls/hr Q20H IV 02/20/19 20:30 03/21/19 14:29 02/20/19 20:55 Vancomycin HCl (Vanco rx to dose) 1 ea DAILY PRN MISC Per rx protocol 02/21/19 09:00 03/18/19 16:14 Vancomycin HCl 750 mg/Sodium Chloride 275 ml @ 183.333 mls/hr Q24H IVPB 02/20/19 21:00 02/24/19 20:59 02/20/19 20:57 Zinc Sulfate (Zinc Sulfate) 220 mg DAILY ORAL 02/21/19 09:00 03/03/19 08:59 02/21/19 08:19 Last 24 Hour Vital Signs Date Time Temp Pulse Resp B/P (MAP) Pulse Ox O2 Delivery O2 Flow Rate FiO2 02/21/19 08:00 98.2 85 16 105/53 (70) 100 02/21/19 07:21 99 Nasal Cannula 2.0 28 02/21/19 04:00 Nasal Cannula 2.0 02/21/19 04:00 85 02/21/19 04:00 98.0 92 16 133/69 (90) 100 02/21/19 00:35 98.3 65 16 116/45 (68) 100 02/21/19 00:00 98.3 64 16 118/50 (72) 100 02/21/19 00:00 Nasal Cannula 2.0 02/21/19 00:00 67 02/20/19 22:15 98.0 77 16 124/50 (74) 100 02/20/19 22:00 98.0 87 16 117/49 (71) 100 02/20/19 20:30 Room Air 02/20/19 20:07 100 Nasal Cannula 2.0 28 02/20/19 20:00 80 17 111/52 (71) 100 02/20/19 20:00 75 02/20/19 20:00 76 02/20/19 20:00 Nasal Cannula 2.0 02/20/19 20:00 97.9 76 16 99/31 (53) 100 02/20/19 19:00 97.9 77 17 99/31 (53) 100 02/20/19 18:00 80 17 111/52 (71) 100 02/20/19 17:00 79 18 105/36 (59) 100 02/20/19 16:00 Nasal Cannula 2.0 02/20/19 16:00 75 02/20/19 16:00 97.7 74 16 106/37 (60) 100 02/20/19 15:00 80 19 116/39 (64) 100 02/20/19 14:00 81 19 126/45 (72) 100 02/20/19 13:00 75 17 122/56 (78) 02/20/19 12:00 Nasal Cannula 2.0 02/20/19 12:00 97.7 66 14 132/42 (72) 100 02/20/19 12:00 77 02/20/19 11:00 63 16 110/51 (70) 100 02/20/19 10:00 76 16 116/45 (68) 100 02/20/19 09:00 Room Air 02/20/19 09:00 86 17 122/46 (71) 100 02/20/19 08:00 98.0 72 18 116/58 (77) 100 02/20/19 08:00 64 02/20/19 08:00 Nasal Cannula 2.0 02/20/19 07:50 100 Nasal Cannula 2.0 28 02/20/19 07:00 63 18 122/49 (73) 98 02/20/19 06:00 77 16 105/56 (72) 100 02/20/19 05:00 69 16 108/37 (60) 99 02/20/19 04:00 74 02/20/19 04:00 98.0 69 18 119/55 (76) 99 02/20/19 04:00 Nasal Cannula 2.0 02/20/19 03:00 79 18 128/54 (78) 99 02/20/19 02:00 87 22 126/71 (89) 99 02/20/19 01:00 77 22 167/55 (92) 99 02/20/19 00:00 Room Air 02/20/19 00:00 Nasal Cannula 2.0 02/20/19 00:00 97.9 79 22 162/52 (88) 99 02/20/19 00:00 76 02/19/19 23:00 74 22 147/45 (79) 99 02/19/19 22:00 78 22 145/45 (78) 99 02/19/19 21:00 78 22 147/44 (78) 99 02/19/19 20:00 98.5 136 22 109/51 (70) 99 02/19/19 20:00 131 02/19/19 20:00 Room Air 02/19/19 20:00 Nasal Cannula 2.0 02/19/19 19:00 133 22 150/44 (79) 99 02/19/19 18:00 132 27 108/46 (66) 98 02/19/19 17:00 136 17 105/51 (69) 98 02/19/19 16:00 136 02/19/19 16:00 Nasal Cannula 2.0 7/14/19 16:00 99.0 136 17 105/51 (69) 98 02/19/19 15:00 129 22 101/41 (61) 98 02/19/19 14:00 101 18 110/41 (64) 99 02/19/19 13:00 99.4 141 19 100/35 (56) 100 02/19/19 12:00 141 02/19/19 12:00 100.6 146 20 106/60 (75) 98 02/19/19 09:00 93 100/81 02/19/19 09:00 Room Air Intake and Output 02/20/19 02/21/19 19:00 07:00 Intake Total 1675.0 ml 1127.000 ml Output Total 650 ml 660 ml Balance 1025.0 ml 467.000 ml Intake Oral 980 ml 120 ml IV Total 695.0 ml 757.000 ml Blood Product 250 ml Output Urine Total 650 ml 660 ml # Voids 1 Labs Test 02/19/19 08:58 02/19/19 11:45 02/19/19 17:15 02/19/19 19:50 White Blood Count 15.9 K/UL (4.8-10.8) Red Blood Count 3.00 M/UL (4.70-6.10) Hemoglobin 8.8 G/DL (14.2-18.0) Hematocrit 28.2 % (42.0-52.0) Mean Corpuscular Volume 94 FL (80-99) Mean Corpuscular Hemoglobin 29.4 PG (27.0-31.0) Mean Corpuscular Hemoglobin Concent 31.4 G/DL (32.0-36.0) Red Cell Distribution Width 14.7 % (11.6-14.8) Platelet Count 248 K/UL (150-450) Mean Platelet Volume 5.9 FL (6.5-10.1) Neutrophils (%) (Auto) 80.7 % (45.0-75.0) Lymphocytes (%) (Auto) 12.3 % (20.0-45.0) Monocytes (%) (Auto) 5.9 % (1.0-10.0) Eosinophils (%) (Auto) 0.7 % (0.0-3.0) Basophils (%) (Auto) 0.3 % (0.0-2.0) Sodium Level 147 MMOL/L (136-145) Potassium Level 3.6 MMOL/L (3.5-5.1) Chloride Level 115 MMOL/L (98-107) Carbon Dioxide Level 22 MMOL/L (21-32) Anion Gap 10 mmol/L (5-15) Blood Urea Nitrogen 36 mg/dL (7-18) Creatinine 1.5 MG/DL (0.55-1.30) Estimat Glomerular Filtration Rate mL/min (>60) Glucose Level 139 MG/DL (74-106) Calcium Level 9.1 MG/DL (8.5-10.1) Magnesium Level 1.8 MG/DL (1.8-2.4) Random Vancomycin Level 12.1 ug/mL Lactic Acid Level 2.40 mmol/L (0.4-2.0) 2.10 mmol/L (0.4-2.0) 2.10 mmol/L (0.66-2.22) Test 02/20/19 08:19 02/21/19 03:45 White Blood Count 15.0 K/UL (4.8-10.8) 12.5 K/UL (4.8-10.8) Red Blood Count 2.69 M/UL (4.70-6.10) 2.92 M/UL (4.70-6.10) Hemoglobin 7.8 G/DL (14.2-18.0) 8.5 G/DL (14.2-18.0) Hematocrit 24.9 % (42.0-52.0) 27.1 % (42.0-52.0) Mean Corpuscular Volume 92 FL (80-99) 93 FL (80-99) Mean Corpuscular Hemoglobin 28.8 PG (27.0-31.0) 29.3 PG (27.0-31.0) Mean Corpuscular Hemoglobin Concent 31.2 G/DL (32.0-36.0) 31.5 G/DL (32.0-36.0) Red Cell Distribution Width 14.7 % (11.6-14.8) 14.8 % (11.6-14.8) Platelet Count 230 K/UL (150-450) 234 K/UL (150-450) Mean Platelet Volume 5.5 FL (6.5-10.1) 5.2 FL (6.5-10.1) Neutrophils (%) (Auto) % (45.0-75.0) 80.3 % (45.0-75.0) Lymphocytes (%) (Auto) % (20.0-45.0) 12.1 % (20.0-45.0) Monocytes (%) (Auto) % (1.0-10.0) 5.2 % (1.0-10.0) Eosinophils (%) (Auto) % (0.0-3.0) 2.1 % (0.0-3.0) Basophils (%) (Auto) % (0.0-2.0) 0.2 % (0.0-2.0) Differential Total Cells Counted 100 Neutrophils % (Manual) 78 % (45-75) Lymphocytes % (Manual) 14 % (20-45) Monocytes % (Manual) 5 % (1-10) Eosinophils % (Manual) 3 % (0-3) Basophils % (Manual) 0 % (0-2) Band Neutrophils 0 % (0-8) Platelet Estimate Adequate Platelet Morphology Normal Hypochromasia 3+ Anisocytosis 1+ Sodium Level 148 MMOL/L (136-145) 143 MMOL/L (136-145) Potassium Level 3.5 MMOL/L (3.5-5.1) 3.7 MMOL/L (3.5-5.1) Chloride Level 116 MMOL/L (98-107) 111 MMOL/L (98-107) Carbon Dioxide Level 25 MMOL/L (21-32) 24 MMOL/L (21-32) Anion Gap 7 mmol/L (5-15) 8 mmol/L (5-15) Blood Urea Nitrogen 36 mg/dL (7-18) 34 mg/dL (7-18) Creatinine 1.3 MG/DL (0.55-1.30) 1.2 MG/DL (0.55-1.30) Estimat Glomerular Filtration Rate mL/min (>60) mL/min (>60) Glucose Level 97 MG/DL (74-106) 96 MG/DL (74-106) Lactic Acid Level 0.90 mmol/L (0.4-2.0) Calcium Level 9.2 MG/DL (8.5-10.1) 8.7 MG/DL (8.5-10.1) Troponin I 0.051 ng/mL (0.000-0.056) Total Bilirubin 0.5 MG/DL (0.2-1.0) Aspartate Amino Transf (AST/SGOT) 28 U/L (15-37) Alanine Aminotransferase (ALT/SGPT) 10 U/L (12-78) Alkaline Phosphatase 52 U/L (46-116) Total Protein 6.0 G/DL (6.4-8.2) Albumin 1.2 G/DL (3.4-5.0) Globulin 4.8 g/dL Albumin/Globulin Ratio 0.2 (1.0-2.7) Height (Feet): 6 Height (Inches): 0.00 Weight (Pounds): 165 Objective PE General: severe distress, chronically Ill ENT: moist mucus membranes Neck: limited range of motion Respiratory: respiratory distress, rhonchi ++ noted, nc Cardiovascular: RRr, no mgr GI: normal inspection, soft Msk: normal inspection Neuro: responsive, motor weakness Psychiatric: depressed affect Skin: no rash Jake Womack MD Feb 21, 2019 08:41
[2019-02-21] MEDS ORDERED: Zinc Sulfate 220mg cap ORAL SCH (09:00)
[2019-02-21] MEDS: Amiodarone 200mg tab ORAL SCH (09:39)
--- NOTE | 2019-02-21 12:05 | Pulmonology Progress Note ---
Assessment/Plan Assessment/Plan Sepsis with shock, improved UTI causing sepsis dementia atelectasis and scar hx SVT improved, very alert continue abx HHN poor candidate for invasive pulmonary procedure Subjective Constitutional: Reports: no symptoms Respiratory: Denies: dry cough, shortness of breath Allergies: Coded Allergies: No Known Allergies (Unverified , 01/18/19) Objective Last 24 Hour Vital Signs Date Time Temp Pulse Resp B/P (MAP) Pulse Ox O2 Delivery O2 Flow Rate FiO2 02/21/19 09:00 Room Air 02/21/19 08:00 Nasal Cannula 2.0 02/21/19 08:00 98.2 85 16 105/53 (70) 100 02/21/19 07:49 81 02/21/19 07:21 99 Nasal Cannula 2.0 28 02/21/19 04:00 Nasal Cannula 2.0 02/21/19 04:00 85 02/21/19 04:00 98.0 92 16 133/69 (90) 100 02/21/19 00:35 98.3 65 16 116/45 (68) 100 02/21/19 00:00 98.3 64 16 118/50 (72) 100 02/21/19 00:00 Nasal Cannula 2.0 02/21/19 00:00 67 02/20/19 22:15 98.0 77 16 124/50 (74) 100 02/20/19 22:00 98.0 87 16 117/49 (71) 100 02/20/19 20:30 Room Air 02/20/19 20:07 100 Nasal Cannula 2.0 28 02/20/19 20:00 80 17 111/52 (71) 100 02/20/19 20:00 75 02/20/19 20:00 76 02/20/19 20:00 Nasal Cannula 2.0 02/20/19 20:00 97.9 76 16 99/31 (53) 100 02/20/19 19:00 97.9 77 17 99/31 (53) 100 02/20/19 18:00 80 17 111/52 (71) 100 02/20/19 17:00 79 18 105/36 (59) 100 02/20/19 16:00 Nasal Cannula 2.0 02/20/19 16:00 75 02/20/19 16:00 97.7 74 16 106/37 (60) 100 02/20/19 15:00 80 19 116/39 (64) 100 02/20/19 14:00 81 19 126/45 (72) 100 02/20/19 13:00 75 17 122/56 (78) Intake and Output 02/20/19 02/21/19 19:00 07:00 Intake Total 1675.0 ml 1127.000 ml Output Total 650 ml 660 ml Balance 1025.0 ml 467.000 ml Intake Oral 980 ml 120 ml IV Total 695.0 ml 757.000 ml Blood Product 250 ml Output Urine Total 650 ml 660 ml # Voids 1 General Appearance: no acute distress HEENT: atraumatic Respiratory/Chest: lungs clear Cardiovascular: normal rate Laboratory Tests 02/21/19 03:45: White Blood Count 12.5H, Red Blood Count 2.92L, Hemoglobin 8.5L, Hematocrit 27.1L, Mean Corpuscular Volume 93, Mean Corpuscular Hemoglobin 29.3, Mean Corpuscular Hemoglobin Concent 31.5L, Red Cell Distribution Width 14.8, Platelet Count 234, Mean Platelet Volume 5.2L, Neutrophils (%) (Auto) 80.3H, Lymphocytes (%) (Auto) 12.1L, Monocytes (%) (Auto) 5.2, Eosinophils (%) (Auto) 2.1, Basophils (%) (Auto) 0.2, Sodium Level 143, Potassium Level 3.7, Chloride Level 111H, Carbon Dioxide Level 24, Anion Gap 8, Blood Urea Nitrogen 34H, Creatinine 1.2, Estimat Glomerular Filtration Rate , Glucose Level 96, Calcium Level 8.7, Total Bilirubin 0.5, Aspartate Amino Transf (AST/SGOT) 28, Alanine Aminotransferase (ALT/SGPT) 10L, Alkaline Phosphatase 52, Total Protein 6.0L, Albumin 1.2L, Globulin 4.8, Albumin/Globulin Ratio 0.2L Current Medications Medications (Trade) Dose Ordered Sig/Vaughn Route PRN Reason Start Time Stop Time Status Last Admin Dose Admin Amiodarone HCl (Cordarone) 200 mg EVERY 12 HOURS ORAL 02/20/19 21:00 03/21/19 20:59 02/21/19 09:39 Ascorbic Acid (Vitamin C) 250 mg TWICE A DAY ORAL 02/21/19 09:00 03/19/19 17:59 02/21/19 08:18 Multivitamins (Multivitamins) 1 tab DAILY ORAL 02/21/19 09:00 03/20/19 08:59 02/21/19 08:18 Piperacillin Sod/ Tazobactam Sod 3.375 gm/Sodium Chloride 110 ml @ 27.5 mls/hr Q8HR@0000,0800,1600 IVPB 02/21/19 00:00 02/26/19 13:59 02/21/19 08:11 Sodium Chloride 1,000 ml @ 50 mls/hr Q20H IV 02/20/19 20:30 03/21/19 14:29 02/20/19 20:55 Vancomycin HCl (Vanco rx to dose) 1 ea DAILY PRN MISC Per rx protocol 02/21/19 09:00 03/18/19 16:14 Vancomycin HCl 750 mg/Sodium Chloride 275 ml @ 183.333 mls/hr Q24H IVPB 02/20/19 21:00 02/24/19 20:59 02/20/19 20:57 Zinc Sulfate (Zinc Sulfate) 220 mg DAILY ORAL 02/21/19 09:00 03/03/19 08:59 02/21/19 08:19 Barry Najera MD Feb 21, 2019 12:05
--- NOTE | 2019-02-21 13:05 | NUR ---
DISCHARGE PLANNING PATIENT ACCEPTED BACK TO [facility] ROOM 204 ONCE CLEARED FOR DISCHARGE.
[2019-02-21] MEDS ORDERED: 1/2 NS 1000ml IV ONE ×2 (14:03→17:27)
[2019-02-21] MEDS ORDERED: D5NS 1000ml IV ONE (14:03)
[2019-02-21] MEDS ORDERED: NS 275ml ONE ×2 (14:03→17:27)
[2019-02-21] MEDS ORDERED: Tubing IV Secondary IV ONE (14:03)
--- NOTE | 2019-02-21 14:25 | NUR ---
NURSE NOTES: Followed up with Dr Mims if patient is for discharge today; awaiting for call back/orders. sugar plantation manager Nya notified and made aware.
--- NOTE | 2019-02-21 15:00 | NUR ---
NURSE NOTES: OK to discharger per Dr Mims. information assurance manager Nya notified and made aware.
--- NOTE | 2019-02-21 15:05 | Surgery Progress Note ---
Surgery Progress Note Subjective Additional Comments out of ICU awake, alert comfortable no complaints no n/v/f/c exam stable labs ntoed Objective Last 24 Hour Vital Signs Date Time Temp Pulse Resp B/P (MAP) Pulse Ox O2 Delivery O2 Flow Rate FiO2 02/21/19 12:48 81 02/21/19 12:00 98.0 80 19 132/85 (101) 100 02/21/19 09:00 Room Air 02/21/19 08:00 Nasal Cannula 2.0 02/21/19 08:00 98.2 85 16 105/53 (70) 100 02/21/19 07:49 81 02/21/19 07:21 99 Nasal Cannula 2.0 28 02/21/19 04:00 Nasal Cannula 2.0 02/21/19 04:00 85 02/21/19 04:00 98.0 92 16 133/69 (90) 100 02/21/19 00:35 98.3 65 16 116/45 (68) 100 02/21/19 00:00 98.3 64 16 118/50 (72) 100 02/21/19 00:00 Nasal Cannula 2.0 02/21/19 00:00 67 02/20/19 22:15 98.0 77 16 124/50 (74) 100 02/20/19 22:00 98.0 87 16 117/49 (71) 100 02/20/19 20:30 Room Air 02/20/19 20:07 100 Nasal Cannula 2.0 28 02/20/19 20:00 80 17 111/52 (71) 100 02/20/19 20:00 75 02/20/19 20:00 76 02/20/19 20:00 Nasal Cannula 2.0 02/20/19 20:00 97.9 76 16 99/31 (53) 100 02/20/19 19:00 97.9 77 17 99/31 (53) 100 02/20/19 18:00 80 17 111/52 (71) 100 02/20/19 17:00 79 18 105/36 (59) 100 02/20/19 16:00 Nasal Cannula 2.0 02/20/19 16:00 75 02/20/19 16:00 97.7 74 16 106/37 (60) 100 I&O Intake and Output 02/20/19 02/21/19 19:00 07:00 Intake Total 1675.0 ml 1127.000 ml Output Total 650 ml 660 ml Balance 1025.0 ml 467.000 ml Intake Oral 980 ml 120 ml IV Total 695.0 ml 757.000 ml Blood Product 250 ml Output Urine Total 650 ml 660 ml # Voids 1 Dressing: saturated Wound: clean Cardiovascular: RSR Respiratory: clear, decreased breath sounds Abdomen: soft, present bowel sounds, non-distended Extremities: no tenderness, no cyanosis Laboratory Tests Test 02/21/19 03:45 White Blood Count 12.5 K/UL (4.8-10.8) H Red Blood Count 2.92 M/UL (4.70-6.10) L Hemoglobin 8.5 G/DL (14.2-18.0) L Hematocrit 27.1 % (42.0-52.0) L Mean Corpuscular Volume 93 FL (80-99) Mean Corpuscular Hemoglobin 29.3 PG (27.0-31.0) Mean Corpuscular Hemoglobin Concent 31.5 G/DL (32.0-36.0) L Red Cell Distribution Width 14.8 % (11.6-14.8) Platelet Count 234 K/UL (150-450) Mean Platelet Volume 5.2 FL (6.5-10.1) L Neutrophils (%) (Auto) 80.3 % (45.0-75.0) H Lymphocytes (%) (Auto) 12.1 % (20.0-45.0) L Monocytes (%) (Auto) 5.2 % (1.0-10.0) Eosinophils (%) (Auto) 2.1 % (0.0-3.0) Basophils (%) (Auto) 0.2 % (0.0-2.0) Sodium Level 143 MMOL/L (136-145) Potassium Level 3.7 MMOL/L (3.5-5.1) Chloride Level 111 MMOL/L (98-107) H Carbon Dioxide Level 24 MMOL/L (21-32) Anion Gap 8 mmol/L (5-15) Blood Urea Nitrogen 34 mg/dL (7-18) H Creatinine 1.2 MG/DL (0.55-1.30) Estimat Glomerular Filtration Rate mL/min (>60) Glucose Level 96 MG/DL (74-106) Calcium Level 8.7 MG/DL (8.5-10.1) Total Bilirubin 0.5 MG/DL (0.2-1.0) Aspartate Amino Transf (AST/SGOT) 28 U/L (15-37) Alanine Aminotransferase (ALT/SGPT) 10 U/L (12-78) L Alkaline Phosphatase 52 U/L (46-116) Total Protein 6.0 G/DL (6.4-8.2) L Albumin 1.2 G/DL (3.4-5.0) L Globulin 4.8 g/dL Albumin/Globulin Ratio 0.2 (1.0-2.7) L Plan Problems: (1) Renal insufficiency (2) UTI (urinary tract infection) (3) Dehydration (4) Decubitus skin ulcer Assessment & Plan: Pt presented on admission with multiple pressure injuries and ulcerations to lower extremities. Unstageable pressure injury with irregular borders noted to sacrum . Base of wound has 100% mixed slough and necrosis.Edges adherent and dark . Periwound indurated with darker skin tone. Pt complained of pain when minimally palpated. Mild odor noted(L)11.1cm x (W)9cm. Full thickness ulcer R tibia. Base of wound has 100% yellow slough. Edges adherent and flat ,Periwound without erythema or fluctuance.(L)2.5cm x (W)1.5cm. Stable dry eschar noted to R hallux. edges are dark but adherent to base of wound. Periwound dark without erythema or fluctuance.(L)1.5cm x (W)2cm. Stable dry eschar noted to R st metatarsal head. Periwound pale without fluctuance. (L)1.5cm x (W)2.5cm. Stable dry eschar noted to dorsal aspects of R 3rd and 4th metatarsals. Full thickness ulcer lateral R 5th metatarsal. base of wound 50% erythematous 50 % necrotic. Edges are black . No odor or exudate noted(L)1.5cm x (W)1.6cm. Stable dry eschar R heel . Periwound fluctuant without erythema. Pt complained of pain when minimally palpated.(L)3.5cm x (W)5.5cm. Stable dry eschar noted to dorso/flexor L foot. Periwound without erythema , induration or fluctuance (L)2.8cm x (W)1cm. Reabsorbing blood blister noted to medial L foot. Base of wound 25% fluctuant , 75% reabsorbed. Periwound without erythema or fluctuance(L)2cm x (W)3.1cm. L heel is dry and blanchable with historical scarring from previous wounds .Dry flaky skin noted to both feet. Tx.Plan: Swab all wounds both lower ext and feet with Betadine. Cover each wound with Optifoam drsgs every 3 days and prn. Cleanse Sacral wound with Saline. Apply Therahoney. Apply Moisture Barrier Paste periwound. Cover with Optifoam Drsg. Change Daily and prn. APM/PHIL mattress overlay. Reposition at least every 2hours or as tolerated. Off-load heels with pillow. (5) Severe sepsis Assessment & Plan: leukocytosis bacteremia on IV abx IV fluid downgraded improving DAILY ESTIMATED NEEDS: Needs based on wounds, sepsis 75kg 30-35 kcals/kg 4803-2471 total kcals 1.25-2 g protein/kg 94-150 g total protein 25-30ml/kcal mL/kg 8746-6391 total fluid mLs NUTRITION DIAGNOSIS: 1) Increased kcal/ pro needs r/t wound healing as evidenced by sacral unstageable, Full thickness L tibia wounds, elev WBC, adm w/ hypotension. 2) Swallowing difficulty r/t dysphagia as evidenced by pt on puree texture w/ NTL STOREROOM ATTENDANT. (CURRENT DIET: Regular puree) PO DIET RECOMMENDATIONS--->>>[place]/ Regular diet (texture per DATA SECURITY ANALYST) ADDITIONAL RECOMMENDATIONS: 1) Pt w/ variable recorded wts-> Please obtain a CALIBRATED bed wt EMR:165#, Bed wt: 199#, [place] adm wt: 158 lbs. 2) DATA SECURITY ANALYST eval for appropriate texture-> on [place] liquids STOREROOM ATTENDANT 3) WOUND CARE: Add BRUCE BID Add VIT C 250mg BID + Add MVI w/ min daily Add ZnSO4 220mg daily x10 days 4) Rec added Ensure Enlive BID (350 kcal each) to better meet est needs. Tawanda Alfaro Feb 21, 2019 15:05
--- NOTE | 2019-02-21 15:36 | NUR ---
DISCHARGE PLANNED PT. WILL DR TO: [facility] [address] RESIDENTIAL T [phone] FOR NURSE TO NURSE REPORT [facility] WILL [facility] SPECIAL[facility] AT [phone]
[2019-02-21] MEDS ORDERED: ZOSYN 3.373.375 GM/1 IVPB ×2 (16:02→16:03)
[2019-02-21] MEDS ORDERED: VANCOMYCIN750 MG/150 IV (16:04)
--- NOTE | 2019-02-21 16:16 | NUR ---
NURSE NOTES: Report given to Ganesh Bowman.
[2019-02-21] MEDS ORDERED: Tubing IV Blood Pump IV ONE (17:27)
--- NOTE | 2019-02-21 18:34 | NUR ---
NURSE NOTES: Called [facility] for follow up on cloth picker, spoke with Gwen states she is sending a new crew with ETA will be 30-45 minutes.
--- NOTE | 2019-02-21 19:18 | Cardiology Progress Note ---
Assessment/Plan Assessment/Plan 1. 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 3. Probable urinary tract infection. 4. Dementia. 5. Questionable history of recent mass in the lungs. 6. History of hypertension. trop neg tele showed sinus on amio bid fro 1 week then daily iv abx tele monitoring noted Subjective Cardiovascular: Denies: chest pain Respiratory: Denies: shortness of breath Gastrointestinal/Abdominal: Denies: abdominal pain Genitourinary: Denies: burning Objective Last 24 Hour Vital Signs Date Time Temp Pulse Resp B/P (MAP) Pulse Ox O2 Delivery O2 Flow Rate FiO2 02/21/19 16:16 125 02/21/19 16:00 98.0 80 20 132/62 (85) 100 02/21/19 12:48 81 02/21/19 12:00 98.0 80 19 132/85 (101) 100 02/21/19 09:00 Room Air 02/21/19 08:00 Nasal Cannula 2.0 02/21/19 08:00 98.2 85 16 105/53 (70) 100 02/21/19 07:49 81 02/21/19 07:21 99 Nasal Cannula 2.0 28 02/21/19 04:00 Nasal Cannula 2.0 02/21/19 04:00 85 02/21/19 04:00 98.0 92 16 133/69 (90) 100 02/21/19 00:35 98.3 65 16 116/45 (68) 100 02/21/19 00:00 98.3 64 16 118/50 (72) 100 02/21/19 00:00 Nasal Cannula 2.0 02/21/19 00:00 67 02/20/19 22:15 98.0 77 16 124/50 (74) 100 02/20/19 22:00 98.0 87 16 117/49 (71) 100 02/20/19 20:30 Room Air 02/20/19 20:07 100 Nasal Cannula 2.0 28 02/20/19 20:00 80 17 111/52 (71) 100 02/20/19 20:00 75 02/20/19 20:00 76 02/20/19 20:00 Nasal Cannula 2.0 02/20/19 20:00 97.9 76 16 99/31 (53) 100 General Appearance: no apparent distress, alert Neck: supple Cardiovascular: normal rate Respiratory/Chest: lungs clear Abdomen: normal bowel sounds, non tender, soft Extremities: no swelling Intake and Output 02/20/19 02/21/19 18:59 06:59 Intake Total 1750.0 ml 1077.000 ml Output Total 650 ml 660 ml Balance 1100.0 ml 417.000 ml Intake Oral 980 ml 120 ml IV Total 770.0 ml 707.000 ml Blood Product 250 ml Output Urine Total 650 ml 660 ml # Voids 1 Laboratory Tests Test 02/21/19 03:45 White Blood Count 12.5 K/UL (4.8-10.8) H Red Blood Count 2.92 M/UL (4.70-6.10) L Hemoglobin 8.5 G/DL (14.2-18.0) L Hematocrit 27.1 % (42.0-52.0) L Mean Corpuscular Volume 93 FL (80-99) Mean Corpuscular Hemoglobin 29.3 PG (27.0-31.0) Mean Corpuscular Hemoglobin Concent 31.5 G/DL (32.0-36.0) L Red Cell Distribution Width 14.8 % (11.6-14.8) Platelet Count 234 K/UL (150-450) Mean Platelet Volume 5.2 FL (6.5-10.1) L Neutrophils (%) (Auto) 80.3 % (45.0-75.0) H Lymphocytes (%) (Auto) 12.1 % (20.0-45.0) L Monocytes (%) (Auto) 5.2 % (1.0-10.0) Eosinophils (%) (Auto) 2.1 % (0.0-3.0) Basophils (%) (Auto) 0.2 % (0.0-2.0) Sodium Level 143 MMOL/L (136-145) Potassium Level 3.7 MMOL/L (3.5-5.1) Chloride Level 111 MMOL/L (98-107) H Carbon Dioxide Level 24 MMOL/L (21-32) Anion Gap 8 mmol/L (5-15) Blood Urea Nitrogen 34 mg/dL (7-18) H Creatinine 1.2 MG/DL (0.55-1.30) Estimat Glomerular Filtration Rate mL/min (>60) Glucose Level 96 MG/DL (74-106) Calcium Level 8.7 MG/DL (8.5-10.1) Total Bilirubin 0.5 MG/DL (0.2-1.0) Aspartate Amino Transf (AST/SGOT) 28 U/L (15-37) Alanine Aminotransferase (ALT/SGPT) 10 U/L (12-78) L Alkaline Phosphatase 52 U/L (46-116) Total Protein 6.0 G/DL (6.4-8.2) L Albumin 1.2 G/DL (3.4-5.0) L Globulin 4.8 g/dL Albumin/Globulin Ratio 0.2 (1.0-2.7) L Luis Alberto Mcleod MD Feb 21, 2019 19:18
--- NOTE | 2019-02-21 19:22 | NUR ---
HAND-OFF: Report given to CELINE Park. Patient in stable condition. Awaiting for [facility] ambulance to filler picker patient. wedger removed.
--- NOTE | 2019-02-21 19:23 | NUR ---
NURSE NOTES: Received report from Glenny RN, pt. received in bed awake, alert x's1- no signs or symptoms of acute cardiac or respiratory distress noted, bed in lowest position and call light within easy reach, bed alarm on, side rails up x's3 and safety brakes engaged, pt. appears to be tolerating current NC settings at 2L no distress noted, pt. appears to be clean and dry, LFA 20G IV intact and patent, safety measures continued, will continue with plan of care.
--- NOTE | 2019-02-21 20:34 | NUR ---
NURSE NOTES: Report given to Michelle from [facility]- pt. remains stable and no signs of distress noted.
--- NOTE | 2019-02-22 04:15 | Progress Note ---
DATE: 02/21/2019 SUBJECTIVE: This is an elderly male, currently in the bed, confused, but he is doing better. OBJECTIVE: VITAL SIGNS: Blood pressure is 130/70, pulse 74, and respirations 18. HEENT: Eyes are open. NECK: Supple. CHEST: Bilaterally clear. CARDIOVASCULAR: Regular rhythm. No gallop. No murmur. ABDOMEN: Soft. Positive bowel sounds. EXTREMITIES: No edema. LABORATORY DATA: Hemoglobin is 8.4 and white counts are 15,000. ASSESSMENT: 1. Anemia, status post transfusion, one unit. 2. Sepsis. 3. UTI. 4. Renal insufficiency. PLAN: Continue current treatment. Continue antibiotics and bronchodilator treatment. Plan discussed with the charge nurse. Pedrito Mims M.D. DR: MIKEL JOB#: [id number] CC:
--- NOTE | 2019-02-22 11:07 | Discharge Summary ---
Discharge Summary Discharge Summary _ DATE OF ADMISSION: 02/16/2019 DATE OF DISCHARGE: 02/21/2019 DISCHARGED BY: Dr. Mims REASON FOR ADMISSION: 89 years old male with past medical history of hypertension, encephalopathy, dementia, presented from the [facility] facility due to significant hypotension. Per report systolic blood pressure was in 70th . Patient denied chest pain or shortness of breath. Upon evaluation patient had fever, was hypotensive with blood pressure 77/45 and tachycardic with heart rate 130. Laboratory work-up revealed leukocytosis with WBC 14.6, anemia with hemoglobin 9.6, hematocrit 31.9. Lactic acid 5.4. Repeated 3.5. Troponin 0.034. Pro BNP 2556. EKG revealed supraventricular tachycardia, most likely atypical atrial flutter with 2-1 AV block. Right bundle branch block. Could not rule out anterior infarct , age undetermined Albumin 1.2. Urinalysis revealed gross evidence of UTI. Sodium 147. BUN 27, creatinine 1.6. Glucose 206. Chest x-ray demonstrated chronic left basilar density, possibly atelectasis versus scarring. Patient received fluid challenge with improvement in blood pressure; pancultured and started on broad-spectrum antibiotic . Patient subsequently admitted to direct observational unit for further management. CONSULTANTS: division operations specialist Dr. Mcleod pulmonary Dr. Najera ID specialist Dr. Lemon inspector balance bridge/oncologist Dr. Womack [facility] COURSE: Patient admitted to direct observational unit. Patient started on the IV fluids and empiric antibiotics. Retail Field Merchandiser followed. Hemodynamic status was closely monitored. Patient started on beta-iftikhar for rate control. Echocardiogram revealed preserved ejection fraction of 65 to 70% with no evidence of left ventricular hypertrophy. No evidence of wall motion abnormality. Right ventricular systolic pressure of 28. Serial troponin were negative. EKG revealed no acute ischemic changes. Patient was ruled out for acute LA. Patient noted to have persistent SVT with right bundle branch and left anterior fascicular block. Patient started on amiodarone and beta-iftikhar stopped due to hypotension. Amiodarone provided twice a day with plan to keep it for 1 week and then change to daily. Supplemental oxygen provided as needed to keep pulse oximetry above 92%. Pulmonary toilet provided. Patient was followed-up with chest x-ray, which revealed bilateral basilar consolidation or edema. CT of the chest, done on the prior admission , revealed 2.5 x 2.3 x 1.8 cm right apical masslike opacity with smaller adjacent similar smaller opacities. Favor scarring, but the possibility of neoplasm cannot be ruled Left hilar adenopathy. Atelectasis and consolidation of the posterior medial left lower lobe Evidence of old granulomatous disease in the left left greater than right hilar and mediastinal lymph nodes. Per recruiter account manager, given advanced age and chronic medical comorbidities, patient was not a candidate for invasive pulmonary procedure. Patient with history of DVT , was on Xarelto. Venous duplex of bilateral lower extremity revealed no evidence of acute DVT. Blood culture revealed MRSA. Urine culture revealed E. coli ESBL. Antibiotics provided as per infectious disease specialist recommendation. Leukocytosis initially increased and later started to trend down. Fevers resolved. Patient will need to complete vancomycin and Zosyn at the facility as specified in medication reconciliation list, as per infectious disease specialist recommendation. Plater Helper followed. Hemoglobin and hematocrit were closely monitored. Patient undergone transfusion of 1 unit of packed red blood cells. Prior to discharge hemoglobin 8.5, hematocrit 27.1. Per inspector balance bridge, patient had iron overload with ferritin 1327. He recommended to consider chelation therapy. Surgeon followed. Wound care provided as per surgeon recommendation. Continue wound care at the facility. Renal parameters and electrolytes were closely monitored. Electrolytes corrected as needed. Nephrotoxins were avoided. Prior to discharge sodium down to 143. Creatinine from 1.6 down to 1.2. Patient clinically stabilized. No fevers, leukocytosis trending down. Stable hemodynamic status. Patient was ready for discharge to [facility] facility for continuation of care. FINAL DIAGNOSES: Sepsis with shock-resolved Sepsis with MRSA bacteremia E. coli ESBL UTI Pneumonia Right bundle branch and left anterior fascicular block History of hypertension Supraventricular tachycardia Dementia Acute kidney injury Possible lung mass Anemia Multiply pressure injuries; ulceration in lower extremity-all present on admission DISCHARGE MEDICATIONS: See Medication Reconciliation list. DISCHARGE INSTRUCTIONS: Patient was discharged to the [facility] facility. Follow up with medical doctor at the facility. I have been assigned to dictate discharge summary for this account. I was not involved in the patient's management. Olimpia Warner NP Feb 22, 2019 11:07
--- NOTE | 2019-02-22 18:41 | Diagnostic Imaging Report ---
APPROVED REPORT CPT Code: 18947 Present Symptoms Comments: BILATERAL LEGS PAIN. BILATERAL: Imaging reveals a patent deep venous system bilaterally. There is no evidence of thrombus within the femoral, popliteal or tibial segments. The greater saphenous veins are also within normal limits. Doppler indicates normal spontaneous flow within these segments.
--- NOTE | 2019-02-23 01:45 | Consultation ---
DATE OF CONSULTATION: 02/21/2019 Late entry. HISTORY OF PRESENT ILLNESS: I am very familiar with this patient from the shelter at [facility]. The patient is an 89-year-old male, who has a history of dementia and depression who has been admitted to the hospital for hypertension. The patient presents with impairment of memory, concentration, and attention. The patient has some anxiety. The patient has waxing and waning consciousness. Over the course of hospitalization, the patient has been treated with current medication. The patient was confused and easily agitated. The patient was given risperidone. The patient has cognitive impairment. PAST PSYCHIATRIC HISTORY: The patient has a history of dementia. PAST MEDICAL HISTORY: As above. ALLERGIES: No known drug allergies. SUBSTANCE ABUSE HISTORY: No known history of illicit drug use or alcohol. MENTAL STATUS EXAMINATION: The patient is alert and oriented times self only. Mood is agitated. Affect is flat. Thought process, there is a paucity of thought content. Thought content, no suicidal or homicidal ideations. ASSESSMENT: [place] I Dementia with behavior disturbance. [place] II Deferred. [place] III As above. [place] IV Low. [place] V 10. PLAN: 1. The patient will be continued on risperidone. 2. Provide the patient with reality orientation and supportive therapy. Beatriz Lawson M.D. DR: YANELI JOB#: [id number] CC:
== END 2019-02-21 21:04 | DRG 871 ==
LOC: EDBD 09:47 → EDBEDREQ 10:07 → EMR 10:11 → EDBEDREQSVC 11:08 → EDBEDREQ 11:08 → 2W 11:12 → EDBEDREQ 11:48 → 2E 02-18 13:45 → ICU 02-19 12:01 → 2W 02-20 20:20
PROC: 30233N1 Transfusion of Nonautologous Red Blood Cells into Peripheral Vein, Percutaneous Approach (ICD-10-PCS; principal; 2019-02-20)
DX: A41.02 Sepsis due to Methicillin resistant Staphylococcus aureus (principal); R65.21 Severe sepsis with septic shock; J18.9 Pneumonia, unspecified organism; N39.0 Urinary tract infection, site not specified; I45.2 Bifascicular block; N17.9 Acute kidney failure, unspecified; I47.1 Supraventricular tachycardia; G93.40 Encephalopathy, unspecified; F03.91 Unspecified dementia, unspecified severity, with behavioral disturbance; I10 Essential (primary) hypertension; Z79.01 Long term (current) use of anticoagulants; E86.0 Dehydration; R13.10 Dysphagia, unspecified; R62.7 Adult failure to thrive; D64.9 Anemia, unspecified; B96.20 Unspecified Escherichia coli [E. coli] as the cause of diseases classified elsewhere; Z16.12 Extended spectrum beta lactamase (ESBL) resistance; R91.8 Other nonspecific abnormal finding of lung field; L89.899 Pressure ulcer of other site, unspecified stage; Z86.711 Personal history of pulmonary embolism; F20.9 Schizophrenia, unspecified; L89.150 Pressure ulcer of sacral region, unstageable; L89.219 Pressure ulcer of right hip, unspecified stage
CPT/HCPCS: 36415; 71045; 80048; 80053; 80202; 81003; 82550; 82553; 83605; 83690; 83735; 83880; 84443; 84484; 85007; 85025; 85610; 85651; 85730; 86140; 86850; 86900; 86901; 86920; 87040; 87081; 87086; 87181; 93005; 93306; 93970; 96361; 96365; 96368; 99285; J8499

== ENCOUNTER 2019-03-26 12:22 | Inpatient (IN) | payer MEDICARE, OTHER, MEDICAID ==
[2019-03-26] VITALS (22 sets, daily range): BP systolic 42–150; BP diastolic 24–90
[~2019-03-26] VITALS: Ht 198.1 cm; Wt 88.6 kg
[~2019-03-26 12:22] MED LIST changes: +ACETAMINOPHEN325 M1 ORAL; +LISINOPRIL10 MG ORAL; +MEGACE ORA400 MG/10 PO; +METOPROLOL TART50 M1 ORAL; +VANCOMYCIN750 MG/150 IV; +ZINC SULFATE220 M1 ORAL; +ZOSYN 3.373.375 GM/1 IVPB
--- NOTE | 2019-03-26 12:22 | NUR ---
ED Nurse Note: Patient brought in by RA with daughter due to chest x-ray positive from [facility] [place] [facility]. He has hx of HTN, Pulmonary embolism. Alert and oriented x1, incontinent. With O2 tx @ 4LPM. Breathing even and unlabored. Family member at bedside.
--- NOTE | 2019-03-26 12:39 | Emergency Room Report ---
History of Present Illness General Chief Complaint: Dyspnea/Respdistress Source: Family Member, EMS Present Illness HPI Patient presents by paramedics from nursing facility patient was found by family to be Increasingly short of breath Patient has had recent hospitalization for pneumonia family denies any vomiting or diarrhea It appeared that he was more swollen than usual to the family patient himself is nonverbal and cannot provide any history Family reports that he is usually more talkative and awake and alert No obvious fevers documented recently Allergies: Coded Allergies: No Known Allergies (Unverified , 01/18/19) Patient History Limited by: medical condition Past Medical History: see triage record Reviewed Nursing Documentation: PMH: Agreed; PSxH: Agreed Nursing Documentation-PMH Past Medical History: No History, Except For Hx Cardiac Problems: No - PE Hx Hypertension: Yes - hypotension too Hx Cancer: No Hx Gastrointestinal Problems: No History Of Psychiatric Problem: No - Schizophrenia Hx Neurological Problems: Yes Hx Cerebrovascular Accident: Yes - Encephalopathy, anemia Hx Dementia: Yes Hx Seizures: Yes Review of Systems All Other Systems: limited - Other than the ones mentioned in the history of present illness all others are reviewed however they do stay limited due to the patient's mental status Physical Exam Vital Signs Date Time Temp Pulse Resp B/P (MAP) Pulse Ox O2 Delivery O2 Flow Rate FiO2 03/26/19 12:07 94.6 54 17 109/53 (71) 91 Nasal Cannula 4.0 Sp02 EP Interpretation: reviewed, abnormal - 91% on oxygen which is a low interpretation General Appearance: mild distress - appears tachypneic Head: normocephalic, atraumatic Eyes: bilateral eye EOMI ENT: normal pharynx, no angioedema Neck: supple Respiratory: no retraction, crackles - Bilaterally and tachypneic Cardiovascular #1: regular rate, rhythm, other - Edema diffusely Gastrointestinal: non tender, soft Musculoskeletal: other - Both lower extremity are in pressure boots, patient does not move lower extremity Neurologic: alert, responsive - eyes open Attempts to speak Skin: no rash, other - Edema Lymphatic: no adenopathy Procedures Critical Care Time Critical Care Time 40 minutes for multiple re-evaluations initial critical presentation concern for worsening symptoms and respiratory failure not including any procedural time Medical Decision Making Diagnostic Impression: Primary Impression: Respiratory distress Additional Impression: Dyspnea ER Course Patient is a fairly complex patient with multiple differential to consideration including but not limited to cardiac cardiopulmonary and vascular emergencies Patient presents in acute distress and respiratory distress requiring BiPAP placement ABG is performed that shows some reassuring numbers Patient also shows UTI Anemia Patient does receive dialysis and has findings consistent with this Patient remains awake and appropriate oxygenation appropriate BiPAP appears to be improving the patient however patient remains critical and is admitted to high level of care With poor prognosis Labs Test 03/26/19 13:50 White Blood Count 13.5 K/UL (4.8-10.8) Red Blood Count 3.15 M/UL (4.70-6.10) Hemoglobin 9.0 G/DL (14.2-18.0) Hematocrit 28.3 % (42.0-52.0) Mean Corpuscular Volume 90 FL (80-99) Mean Corpuscular Hemoglobin 28.5 PG (27.0-31.0) Mean Corpuscular Hemoglobin Concent 31.6 G/DL (32.0-36.0) Red Cell Distribution Width 16.7 % (11.6-14.8) Platelet Count 153 K/UL (150-450) Mean Platelet Volume 5.3 FL (6.5-10.1) Neutrophils (%) (Auto) % (45.0-75.0) Lymphocytes (%) (Auto) % (20.0-45.0) Monocytes (%) (Auto) % (1.0-10.0) Eosinophils (%) (Auto) % (0.0-3.0) Basophils (%) (Auto) % (0.0-2.0) Differential Total Cells Counted 100 Neutrophils % (Manual) 80 % (45-75) Lymphocytes % (Manual) 11 % (20-45) Monocytes % (Manual) 2 % (1-10) Eosinophils % (Manual) 0 % (0-3) Basophils % (Manual) 0 % (0-2) Band Neutrophils 7 % (0-8) Platelet Estimate Adequate Platelet Morphology Normal Hypochromasia 1+ Anisocytosis 1+ Sodium Level 144 MMOL/L (136-145) Potassium Level 4.0 MMOL/L (3.5-5.1) Chloride Level 113 MMOL/L (98-107) Carbon Dioxide Level 24 MMOL/L (21-32) Anion Gap 7 mmol/L (5-15) Blood Urea Nitrogen 17 mg/dL (7-18) Creatinine 1.1 MG/DL (0.55-1.30) Estimat Glomerular Filtration Rate mL/min (>60) Glucose Level 71 MG/DL (74-106) Calcium Level 8.9 MG/DL (8.5-10.1) Total Bilirubin 0.4 MG/DL (0.2-1.0) Aspartate Amino Transf (AST/SGOT) 17 U/L (15-37) Alanine Aminotransferase (ALT/SGPT) < 6 U/L (12-78) Alkaline Phosphatase 76 U/L (46-116) Total Creatine Kinase 47 U/L (26-308) Creatine Kinase MB 5.1 NG/ML (0.0-3.6) Creatine Kinase MB Relative Index 10.8 Troponin I 0.000 ng/mL (0.000-0.056) Pro-B-Type Natriuretic Peptide 2858 pg/mL (0-125) Total Protein 6.7 G/DL (6.4-8.2) Albumin 1.2 G/DL (3.4-5.0) Globulin 5.5 g/dL Albumin/Globulin Ratio 0.2 (1.0-2.7) Rhythm Strip Diag. Results EP Interpretation: yes Rate: 88 Rhythm: NSR, no PVC's, no ectopy Chest X-Ray Diagnostic Results Chest X-Ray Diagnostic Results : Chest X-Ray Ordered: Yes # of Views/Limited/Complete: 1 View Indication: Shortness of Breath EP Interpretation: Yes Interpretation: other - Lateral effusions, increased markings, infectious versus other Impression: Other - Bilateral effusions, congestion, infiltrate versus other Electronically Signed by: Cortez Mustafa DO Last Vital Signs Date Time Temp Pulse Resp B/P (MAP) Pulse Ox O2 Delivery O2 Flow Rate FiO2 03/26/19 12:07 94.6 54 17 109/53 (71) 91 Nasal Cannula 4.0 Status: improved Disposition: ADMITTED INPATIENT Condition: Critical Cortez Mustafa DO Mar 26, 2019 12:39
[2019-03-26] MEDS ORDERED: IPRATROPIU0.2 MG/1 M HHN (12:42)
--- NOTE | 2019-03-26 13:00 | NUR ---
ED Nurse Note: pt difficult to obtain iv access and labs. facility coordinator called to draw labs
[2019-03-26] MEDS ORDERED: cefTRIAXone 1 GM in NS 55 ML IVPB ONE (13:30)
[2019-03-26] MEDS ORDERED: Azithromycin 500 MG in D5W 275 ML IVPB ONE (13:30)
--- NOTE | 2019-03-26 13:45 | NUR ---
ED Nurse Note: iv site placed by jose brewer pt tolerates lab draw and iv placement well. pt is at his normal mentation with family. pt oriented to self only. pt is [facility]ambulatory at [facility].
[2019-03-26 14:07] LABS: HEMATOCRIT 28.3 % (42.0-52.0); MEAN CORPUSCULAR VOLUME 90 FL (80-99); PLATELET COUNT 153 K/UL (150-450); RED BLOOD COUNT 3.15 M/UL (4.70-6.10); RED CELL DISTRIBUTION WIDTH 16.7 % (11.6-14.8); WHITE BLOOD COUNT 13.5 K/UL (4.8-10.8)
[2019-03-26 14:15] LABS: ANION GAP 7 mmol/L (5-15); BLOOD UREA NITROGEN 17 mg/dL (7-18); CALCIUM 8.9 MG/DL (8.5-10.1); CARBON DIOXIDE 24 MMOL/L (21-32); CHLORIDE 113 MMOL/L (98-107); CREATININE 1.1 MG/DL (0.55-1.30); SODIUM 144 MMOL/L (136-145)
--- NOTE | 2019-03-26 14:20 | NUR ---
ED Nurse Note: FC was placed. patent and draining well.
[2019-03-26 14:28] LABS: ALANINE AMINOTRANSFERASE < 6 U/L (12-78); ALBUMIN 1.2 G/DL (3.4-5.0); ALBUMIN/GLOBULIN RATIO 0.2 (1.0-2.7); ALKALINE PHOSPHATASE 76 U/L (46-116); ASPARTATE AMINO TRANSFERASE 17 U/L (15-37); BILIRUBIN,TOTAL 0.4 MG/DL (0.2-1.0); CKMB 5.1 NG/ML (0.0-3.6); CREATINE KINASE 47 U/L (26-308)
--- NOTE | 2019-03-26 14:46 | NUR ---
ED Nurse Note: Redraw blood for lactic acid. Lactic acid 3.20.
[2019-03-26 15:11] LABS: BILIRUBIN, URINE NEGATIVE (NEGATIVE); COLOR,URINE AMBER; GLUCOSE, URINE (UA) NEGATIVE (NEGATIVE); KETONES,URINE NEGATIVE (NEGATIVE); LEUKOCYTE ESTERASE ,URINE 1+ (NEGATIVE); NITRITE,URINE NEGATIVE (NEGATIVE); PH,URINE 5 (4.5-8.0); PROTEIN,URINE 2+ (NEGATIVE); UROBILINOGEN,URINE 1 MG/DL (0.0-1.0)
[2019-03-26 15:16] LABS: APPEARANCE,URINE SLIGHTLY CLOUDY
--- NOTE | 2019-03-26 15:46 | NUR ---
ED Nurse Note: Report given to oJsselin BERGER from Tele.
--- NOTE | 2019-03-26 15:46 | NUR ---
RESPIRATORY NOTE: Pt was intubated with 7.5 ETT, 24 at the lip, and put on vent settings AC/VC 16, 600 Vt, FiO2 100%, PEEP +5. Airway is patent and secure with anchorfast. Bilateral rhonchi breath sounds noted upon auscultation. Small, thick, yellow, clear, white secretions noted when suctioning. Ambubag is present at bedside. Alarms on and audible. Will continue to monitor.
--- NOTE | 2019-03-26 16:15 | NUR ---
TRANSFER TO FLOOR: Patient transferred to Telemetry unit as ordered. Report given to Josselin BERGER. Belongings was given to the patient. Family and or S/O informed of transfer.
--- NOTE | 2019-03-26 17:00 | NUR ---
NURSE NOTES: At 1630 : Received report CELINE Cardona. Patient transferred from ED to tele. site monitor on, on 5L NC. Skin assessment done, picture taken. Belonging list checked with family member, patient open eyes on verbal stimulus, non verbal. IV on left AC 20G, asymptomatic, patent, intact. AT 1645 : When VS taken BP 111/38, HR 44, R 28, T 89.6F, BS 110, O2 70% on 5L oxygen via NC. RT called, O2 sat 90% on non-rebreather 15L. Family member , at the bedside, informed about situation. Jovan adams initiated for hypothermia. At 1650 : YARN CONDITIONER initiated, Dr. Mims called, patient transferred to ICU.
[2019-03-26] MEDS ORDERED: Albuterol/Ipratropium 3ml neb HHN PRN ×2 (17:15→17:30)
[2019-03-26] MEDS ORDERED: Levophed 4mg/4mL Inj IV ONE ×2 (17:55→21:39)
[2019-03-26] MEDS ORDERED: Atropine Inj 1mg/10ml Syr ONE (18:21)
--- NOTE | 2019-03-26 18:30 | NUR ---
NURSE NOTES: Patient transferred to ICU s/p INSEAM TRIMMING MACHINE OPERATOR for decreased O2 saturation. Patient intubated at bedside by Dr. Cadet at 17:46. ETT 7.5, 22cm at lip line, hooked to vent with settings of AC 16, TV 600, FiO2 100%, PEEP 5, saturating at 100%. Right femoral TLC also placed at bedside. Unable to get temperature reading at this time. Patient on Jovan hugger. Will continue to monitor.
[2019-03-26] MEDS ORDERED: PRO-STAT LIQUID30 ML ORAL (18:52)
--- NOTE | 2019-03-26 19:01 | NUR ---
AUDIOLOGY DOCTOR Note: AUDIOLOGY DOCTOR was called at 1649 by CELINE Schwab, and notified MD Mims. Pt transferred to ICU at 1717. See AUDIOLOGY DOCTOR documentation form for full report. Addendum: 03/26/19 at 1903 by DEE BALDWIN RN At 1630 : Received report CELINE Cardona. Patient transferred from ED to tele. surveillance monitor on, on 5L NC. Skin assessment done, picture taken. Belonging list checked with family member, patient open eyes on verbal stimulus, non verbal. IV on left AC 20G, asymptomatic, patent, intact. AT 1645 : When VS taken BP 111/38, HR 44, R 28, T 89.6F, BS 110, O2 70% on 5L oxygen via NC. RT called, O2 sat 90% on non-rebreather 15L. Family member , at the bedside, informed about situation. Jovan adams initiated for hypothermia. At 1650 : AUDIOLOGY DOCTOR initiated, Dr. Mims called, patient transferred to ICU.
--- NOTE | 2019-03-26 19:28 | NUR ---
HAND-OFF: Report given to Dashawn Ozuna RN. VS stable at this time.
--- NOTE | 2019-03-26 19:30 | NUR ---
NURSE NOTES: Received report and pt from CELINE Root. s/p BUNDLER SEASONAL GREENERY. Patient is SR- ST on procurement technician. BP 108/49, HR 53, SpO2 99%, Resp 16. Pt's nonverbal, fatigue, orally intubated with ETT 7.5, 22LL, AC16, TV 600, FiO2 40%, Peep 5. NPO at this time. Jose intact, draining cloudy yellow urine. Large sacral wound unstageable, noted and wound care already carried out. IV on left AC 20G, asymptomatic, patent, intact. Right femoral also intact, running Levophed at 18mcg/min. Jovan hugger on for hypothermia. Will continue to monitor.
--- NOTE | 2019-03-26 19:30 | History and Physical Report ---
DATE OF ADMISSION: 03/26/2019 HISTORY OF PRESENT ILLNESS: This is an 89-year-old male, came to the emergency room. He was congested, short of breath, hypoxia since last night, was given DuoNeb. Chest x-ray showing some congestion. The patient became hypoxic. He was transferred this morning on family's request. The patient is currently feeling congested. He has no fever. No chills. PAST MEDICAL HISTORY: Significant for hypertension, CHF, dementia, depression, weight loss. MEDICATIONS: See the list. ALLERGIES: NKA. FAMILY HISTORY: Noncontributory. SOCIAL HISTORY: The patient lives at the shelter. Mostly bedbound. Confusion. PHYSICAL EXAMINATION: VITAL SIGNS: Blood pressure is 130/70, pulse 74, respirations 18. No fever. SKIN: Good skin turgor. HEENT: Mild JVD. CHEST: Bilateral scattered crackles, wheezing. CARDIOVASCULAR: Regular rhythm. No gallop. No murmur. ABDOMEN: Soft. Positive bowel sounds. EXTREMITIES: 1+ edema. GENITOURINARY: Deferred. LABORATORY DATA: BNP was about 2000. White counts are slightly high. Chest x-ray also showing interstitial markings. ASSESSMENT: 1. Possible aspiration pneumonia. 2. CHF, decompensated acute diastolic. 3. Hypertension. 4. Dementia. 5. Severe malnutrition. PLAN: 1. We will admit on a telemetry bed. 2. Start IV Lasix, IV antibiotics, bronchodilator treatments. 3. Consult Cardiology and Pulmonary consults. 4. SCDs for DVT prophylaxis. 5. Repeat labs. Pedrito Mims M.D. DR: FORREST JOB#: [id number] CC:
[2019-03-26 20:43] LABS: HEMATOCRIT 25.5 % (42.0-52.0); HEMOGLOBIN 8.4 G/DL (14.2-18.0); MEAN CORPUSCULAR VOLUME 88 FL (80-99); PLATELET COUNT 187 K/UL (150-450); RED BLOOD COUNT 2.92 M/UL (4.70-6.10); RED CELL DISTRIBUTION WIDTH 15.9 % (11.6-14.8)
[2019-03-26 20:55] LABS: ANION GAP 9 mmol/L (5-15); BLOOD UREA NITROGEN 18 mg/dL (7-18); CALCIUM 8.8 MG/DL (8.5-10.1); CARBON DIOXIDE 25 MMOL/L (21-32); CHLORIDE 106 MMOL/L (98-107); CREATININE 1.2 MG/DL (0.55-1.30); POTASSIUM 3.7 MMOL/L (3.5-5.1); SODIUM 140 MMOL/L (136-145)
[2019-03-26 21:12] LABS: PHOSPHORUS 3.3 MG/DL (2.5-4.9)
[2019-03-26] MEDS ORDERED: Atropine Inj 1mg/10ml Syr IVP SCH (22:00)
[2019-03-26] MEDS ORDERED: Piperacillin/Tazobactam 3.375 GM in NS 110 ML IVPB SCH (22:00)
--- NOTE | 2019-03-26 22:00 | NUR ---
NURSE NOTES: Pt's resting in bed, family at bed side. Pt's stable condition. BP 97/61, HR 89, R 17 ,O2 sat 89. Still on Levophed at 20mcg/min. Will continue monitoring.
--- NOTE | 2019-03-26 22:03 | Emergency Room Report ---
History of Present Illness General Chief Complaint: Dyspnea/Respdistress Source: Medical Record Present Illness Allergies: Coded Allergies: No Known Allergies (Unverified , 01/18/19) Nursing Documentation-[facility] Past Medical History Deferred: No Family Available Past Medical History: No Stated History Hx Cardiac Problems: No - PE Hx Hypertension: Yes Hx Cancer: No Hx Gastrointestinal Problems: No History Of Psychiatric Problem: No - Schizophrenia Hx Neurological Problems: Yes Hx Cerebrovascular Accident: Yes - Encephalopathy, anemia Hx Dementia: Yes Hx Encephalitis: Yes Hx Seizures: Yes Physical Exam Vital Signs Date Time Temp Pulse Resp B/P (MAP) Pulse Ox O2 Delivery O2 Flow Rate FiO2 03/26/19 12:07 94.6 54 17 109/53 (71) 91 Nasal Cannula 4.0 03/26/19 17:46 50 Procedures Critical Care Time Critical Care Time i. I feel this is a highly complex case requiring extensive working including EKG/Rhythm strip, Xray/CT/US, Blood/urine lab work, repeat exams while in ED, and administration of strong opiates/narcotics for pain control, admission to hospital or close patient follow up. Total time: 30 min bedside evaluation and treatment excludes procedures (EKG). Reason for critical care: hypoxic, hypotension Possible complications: hypotension, hypertension, CA, shock, arrhythmias, metabolic acidosis, end organ damage, respiratory failure. Interventions: intubation, central line Course: Patient presenting with hypoxia. Admitted for pneumonia. On high flow oxygen. Altered. Patient also hypotensive. Moved to ICU from telemetry due to rapid response. I intubated patient. Placed central line. Consultations: nursing staff, EMS, family Performed by: Dr Cadet Tolerated well condition = critical j. because of unstable vital signs this patient had a condition that could potentially threaten life or limb. I feel this is a critical patient who required my full attention while patient was considered critical. Total Critical Care Time excluding procedures was greater than 30 minutes Central Line Central Line : Consent: Emergent Central Line Lumen: triple Maximal Sterile Barrier Tech: yes cap, yes mask, yes sterile gown, yes sterile gloves, yes large sterile sheet, yes hand hygiene, yes chlorhexidine prep Central Line Postion: femoral (R) Anesthesia: Lidocaine Complications: none Central Line Post Position: sutured, good blood return Attempts: One Patient Tolerated: Well Complications: None Intubation Intubation : Consent: Emergent Intubation Method: orotracheal Tube Size (cm): 7.5 Medications: Etomidate, Rocuronium Breath Sounds after Intubation: equal Intubation Complications: no complications Post Intubation Xray: Yes Attempts: One Patient Tolerated: Well Complications: None Medical Decision Making Diagnostic Impression: Primary Impression: Respiratory distress ER Course I was called to the ICU to evaluate this patient. Patient admitted to telemetry floor for pneumonia. Rapid response called after patient became hypoxic. Patient moved to ICU. Patient on high flow oxygen and is altered. Patient also hypotensive. I evaluated patient. I intubated patient. Placed right femoral central line. ET tube confirmed on x-ray. Care resumed by admitting physician Last Vital Signs Date Time Temp Pulse Resp B/P (MAP) Pulse Ox O2 Delivery O2 Flow Rate FiO2 03/26/19 19:14 48 16 50 03/26/19 19:14 100 Mechanical Ventilator 03/26/19 19:00 123/56 (78) 03/26/19 16:15 97.8 4.0 Status: improved Disposition: ADMITTED INPATIENT Condition: Critical Referrals: Elmo Mims MD (PCP) Octavio Cadet MD Mar 26, 2019 22:03
[2019-03-26] MEDS: Piperacillin/Tazobactam 3.375 GM in NS 110 ML IVPB SCH (22:27)
[2019-03-27] VITALS (88 sets, daily range): BP systolic 63–155; BP diastolic 36–95
--- NOTE | 2019-03-27 00:20 | NUR ---
NURSE NOTES: Current BP 69/37, pt's on max of Levophed, HR 119. Called Dr Vargas regarding pt's condition, awaiting for call back.
--- NOTE | 2019-03-27 01:20 | NUR ---
NURSE NOTES: Dr Vargas called back with order to start Phenylephrine. Order noted and carried out. Will continue to monitor.
[2019-03-27] MEDS: Phenylephrine 50 MG in D5W 245 ML IV SCH ×3 (01:56→13:43)
--- NOTE | 2019-03-27 03:00 | NUR ---
NURSE NOTES: Pt's resting in bed, in no acute distress. VS stable. Sinus tach tile erector. Will continue to monitor.
[2019-03-27 04:48] LABS: HEMATOCRIT 26.3 % (42.0-52.0); HEMOGLOBIN 8.3 G/DL (14.2-18.0); MEAN CORPUSCULAR VOLUME 90 FL (80-99); PLATELET COUNT 203 K/UL (150-450); RED BLOOD COUNT 2.93 M/UL (4.70-6.10); RED CELL DISTRIBUTION WIDTH 16.6 % (11.6-14.8); WHITE BLOOD COUNT 21.4 K/UL (4.8-10.8)
--- NOTE | 2019-03-27 05:00 | NUR ---
NURSE NOTES: Pt's resting in bed, in no acute distress. Will continue to monitor.
[2019-03-27 05:16] LABS: ANION GAP 11 mmol/L (5-15); BLOOD UREA NITROGEN 18 mg/dL (7-18); CALCIUM 8.5 MG/DL (8.5-10.1); CARBON DIOXIDE 23 MMOL/L (21-32); CHLORIDE 105 MMOL/L (98-107); CREATININE 1.3 MG/DL (0.55-1.30); POTASSIUM 3.9 MMOL/L (3.5-5.1); SODIUM 139 MMOL/L (136-145)
[2019-03-27] MEDS: Piperacillin/Tazobactam 3.375 GM in NS 110 ML IVPB SCH ×3 (05:37→22:13)
--- NOTE | 2019-03-27 07:11 | NUR ---
RESPIRATORY NOTE: Received pt this AM on PB840 ventilator; on current ordered settings of 16/600/40%/+5. With a 7.5Ett secured by anchor fast at the 24cm marguerite at teeth. Bilateral breathe sounds are clear with the occasional rhonchi -cleared by suctioning. Ventilator alarms are on and audible. Ambu bag is currently present at bedside. Pt in sync with vent, no distress noted at this time all other vitals/visual assessments are WNL. Will continue to monitor.
--- NOTE | 2019-03-27 07:12 | NUR ---
NURSE NOTES: Received pt from CELINE Womack. Patient opens eyes and responds to touch and voice stimuli. Pupils are 4mm, even/sluggish. Orally intubated, 7.5/22cm at lip line, 16/600/40%/+5, Spo2 100%, RR 16. Bilateral breath sounds diminished. Sinus tachy, HR 122. R. Femoral TLC running Levophed@24mcg/hr, Phenylephrine 160mcg/hr and IV ABX. LAC 20G TKO, asymptomatic. Abdomen flat, non-tender. NPO maintained. FC draining minimal cloudy urine. Ordered p200 mattress. Bilateral wrist restraints maintained for safety and impulsiveness. Bed locked, alarmed and in lowest position. Notified Dr. Mims regarding Lactic Acid 2.70 this morning. PMD does not want IVF due to hx of CHF, read back given and verified.
--- NOTE | 2019-03-27 07:20 | NUR ---
HAND-OFF: Report given to CELINE Brizuela.
[2019-03-27] MEDS: Norepinephrine Bitartrate 8 MG in D5W 500ml 492 ML IV SCH ×2 (07:59→16:23)
--- NOTE | 2019-03-27 09:10 | NUR ---
NURSE NOTES: 2D ECHO BEING DONE AT BEDSIDE.
--- NOTE | 2019-03-27 09:47 | NUR ---
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
[2019-03-27] MEDS ORDERED: NS 275ml ONE (09:52)
[2019-03-27] MEDS ORDERED: D5W 275ml ONE (09:52)
[2019-03-27] MEDS ORDERED: LR 1000ml ONE (09:52)
[2019-03-27] MEDS ORDERED: Tubing IV Secondary IV ONE (09:52)
[2019-03-27] MEDS: Pantoprazole Inj IVP SCH (09:53)
[2019-03-27] MEDS: Heparin 5000 units/ml inj SUBQ SCH ×2 (09:53→20:29)
--- NOTE | 2019-03-27 10:30 | NUR ---
NURSE NOTES: Notified Dr. Mims of WBC and LA results. He said to call Dr. Lemon. Paged Dr. Lemon, awaiting for call back.
--- NOTE | 2019-03-27 10:50 | Diagnostic Imaging Report ---
. Indication: Chest pain Technique: One view of the chest Comparison: 02/20/2019 Findings: There is fairly extensive bilateral diffuse interstitial and airspace edema versus infiltrates. There is equivocal slight blunting of the right costophrenic sulcus. The heart size is upper limits of normal. Impression: Bilateral diffuse interstitial and airspace edema versus infiltrates
--- NOTE | 2019-03-27 11:16 | NUR ---
RD ASSESSMENT & RECOMMENDATIONS SEE CARE ACTIVITY FOR COMPLETE ASSESSMENT DAILY ESTIMATED NEEDS: Needs based on Wound, critical care 78.6kg 25-30 kcals/kg 4235-6938 total kcals 1.25-2 g protein/kg 98-157 g total protein Fluid per MD, on lasix NUTRITION DIAGNOSIS: 1) Increased kcal/ pro needs r/t wound healing as evidenced by full thickness sacral wound, pending updated eval. 2) Swallowing difficulty r/t respiratory status as evidenced by s/p RR, pt now orally intubated, on pressor support. CURRENT DIET: Regular-> pt now intubated ENTERAL NUTRITION RECOMMENDATIONS: Osmolite 1.5 @55ml/hr x24 hrs + Prosource BID to provide 1320ml, 1980 kcal, 83g + 22g pro, 1006ml free H2O - WHEN HEMODYNAMICALLY STABLE, rec to obtain GI access, initiate non oral feeds to meed est nutritional needs - Start Osmolite 1.5 @25ml/hr for 6 hrs, advance as tolerated 10ml/hr q4-6 hrs to goal. - Flush per MD/ HOB over 30 degrees ADDITIONAL RECOMMENDATIONS: 1) Obtain a CALIBRATED bed wt 2) Feed w/ hemodynamic stability -> currently on pressors x2 3) WOUND CARE: Add BRUCE BID w/ GI access Add VIT C 250mg BID Add ZnSO4 220mg daily x10 days 4) On lasix, monitor lytes daily 5) WAFER FABRICATOR eval upon extubation
--- NOTE | 2019-03-27 11:20 | NUR ---
NURSE NOTES: p200 mattress [address]. Turned and repositioned. Kept dry and clean. Dr. Alfaro making rounds for wound consult. titrating pressors to meet MAP >65. Oral care done.
--- NOTE | 2019-03-27 11:24 | Diagnostic Imaging Report ---
Indication: Post intubation Technique: One view of the chest Comparison: 6 hours earlier Findings: Interim endotracheal intubation, endotracheal tube tip projecting approximately 4 cm above the agustin. Bilateral diffuse interstitial and airspace parenchymal disease persists, unchanged. There are overlying defibrillator paddles noted. The heart size is normal Impression: Satisfactory endotracheal intubation Other stable findings as described
--- NOTE | 2019-03-27 11:47 | Consultation ---
History of Present Illness General Chief Complaint: Dyspnea/Respdistress Present Illness HPI This is a 89-year-old male well-known to me from prior admissions who presents from snf with respiratory distress and shortness of breath. Patient admitted to the intensive care unit for care and management. On admission noted to have leukocytosis, abnormal labs, sepsis. Patient multiple medical comorbid morbidities and history of multiple decubitus ulcers requiring care and management. Surgery called to evaluate and assist with care. Patient seen , patient evaluated, chart reviewed. Allergies: Coded Allergies: No Known Allergies (Unverified , 01/18/19) Medication History Scheduled Amino Acids/Protein Hydrolys (Pro-Stat Liquid), 30 ML ORAL THREE TIMES A DAY, ( Reported) Divalproex Sodium (Divalproex Sodium), 250 MG PO Q8HR, (Reported) Docusate Sodium* (Colace*), 100 MG ORAL BID, (Reported) Ferrous Sulfate (Ferrous Sulfate), 325 MG ORAL BID, (Reported) Lisinopril* (Lisinopril*), 10 MG ORAL DAILY, (Reported) Megestrol Acetate (Megestrol Acetate), 400 MG PO BID, (Reported) Metoprolol Tartrate* (Metoprolol Tartrate*), 50 MG ORAL DAILY, (Reported) Midodrine (Midodrine HCl), 10 MG ORAL THREE TIMES A DAY, (Reported) Dutfcvadmlzm-Anie-Zhuhnrlw,Iso (Zosyn 3.375 Gm Pre Mix-Bag), 3.375 GM IVPB EVERY 8 HOURS, (Reported) Iravvscjarnz-Gbpc-Argjncbx,Iso (Zosyn 3.375 Gm Pre Mix-Bag), 3.375 GM IVPB EVERY 8 HOURS, (Reported) Risperidone* (Risperdal*), 0.5 MG ORAL DAILY, (Reported) Rivaroxaban (Xarelto), 15 MG ORAL DAILY, (Reported) Vancomycin In Dextrose,Iso-Osm (Vancomycin 750 Mg/150 Ml Bag), 750 MG IV DAILY, (Reported) Scheduled PRN Acetaminophen* (Acetaminophen 325MG Tablet*), 650 MG ORAL Q4H PRN for Mild Pain (Pain Scale 1-3), (Reported) Ipratropium [place] 0.5MG/2.5ML (Ipratropium [place] 0.5MG/2.5ML), 0.5 MG HHN Q6H PRN for Shortness of Breath, (Reported) Magnesium Hydroxide* (Milk Of Magnesia*), 30 ML ORAL DAILY PRN for Constipation, (Reported) Temazepam (Temazepam*), 15 MG ORAL BEDTIME PRN for SLEEP, (Reported) Discontinued Medications Ascorbic Acid (Vitamin C), 500 MG PO BID, (Reported) Discontinued Reason: Therapy completed Multivitamin With Minerals (Multivitamins With Minerals*), 1 TAB ORAL DAILY, ( Reported) Discontinued Reason: Therapy completed Zinc Sulfate (Zinc Sulfate*), 220 MG ORAL DAILY, (Reported) Discontinued Reason: Therapy completed Patient History Limited by: medical condition History Provided By: Medical Record, PMD Healthcare decision maker Tri Neely Resuscitation status Full Code Advanced Directive on File Past Medical/Surgical History Past Medical/Surgical History: (1) Decubitus skin ulcer (2) Severe sepsis (3) Dyspnea (4) Hypoxia (5) Respiratory distress Review of Systems ROS Narrative Cannot obtain given patient's medical condition Physical Exam General Appearance: mild distress Lines, tubes and drains: other HEENT: mucous membranes moist Neck: other Respiratory/Chest: no respiratory distress, decreased breath sounds Cardiovascular/Chest: tachycardia Abdomen: soft, no organomegaly, feeding tube Extremities: other Skin Exam: other Neurologic: unresponsiveness Last 24 Hour Vital Signs Date Time Temp Pulse Resp B/P (MAP) Pulse Ox O2 Delivery O2 Flow Rate FiO2 03/27/19 10:59 72 16 40 03/27/19 10:00 112/51 03/27/19 09:26 74 16 40 03/27/19 09:00 121/78 03/27/19 08:30 87 17 96/72 (80) 100 03/27/19 08:15 114 17 139/55 (83) 100 03/27/19 08:00 97 17 127/51 (76) 100 03/27/19 08:00 Mechanical Ventilator 03/27/19 08:00 40 03/27/19 07:59 81/63 03/27/19 07:59 70 81/56 03/27/19 07:45 110 17 122/63 (82) 100 03/27/19 07:30 99.9 119 17 80/50 (60) 100 03/27/19 07:15 107 17 113/62 (79) 100 03/27/19 07:05 70 16 40 03/27/19 07:00 81/56 03/27/19 07:00 81/56 03/27/19 07:00 81/56 03/27/19 07:00 81/56 03/27/19 07:00 81/56 03/27/19 07:00 81/56 03/27/19 07:00 81/56 03/27/19 07:00 81/56 03/27/19 07:00 81/56 03/27/19 07:00 81/56 03/27/19 07:00 81/56 03/27/19 07:00 98.8 118 17 81/56 (64) 100 03/27/19 06:30 97 17 96/59 (71) 100 03/27/19 06:15 122 17 84/55 (65) 100 03/27/19 06:06 115 16 104/59 (74) 100 03/27/19 06:00 104/59 03/27/19 06:00 113 17 110/60 (77) 100 03/27/19 05:45 122 16 115/63 (80) 100 03/27/19 05:40 120 18 99/61 (74) 100 03/27/19 05:38 122 17 79/56 (64) 100 03/27/19 05:37 79/56 03/27/19 05:30 108 18 90/55 (67) 100 03/27/19 05:28 65/41 03/27/19 05:15 106 18 65/41 (49) 100 03/27/19 05:07 122 16 40 03/27/19 05:00 65/41 03/27/19 05:00 98.0 119 20 96/49 (65) 100 03/27/19 04:45 120 17 89/59 (69) 99 03/27/19 04:45 120 17 89/59 (69) 99 03/27/19 04:30 120 17 94/60 (71) 100 03/27/19 04:30 120 17 94/60 (71) 100 03/27/19 04:15 123 16 91/59 (70) 100 03/27/19 04:15 123 16 91/59 (70) 100 03/27/19 04:00 119 03/27/19 04:00 40 03/27/19 04:00 123 18 100/69 (79) 100 03/27/19 04:00 100/69 03/27/19 04:00 Mechanical Ventilator 03/27/19 04:00 123 18 100/69 (79) 100 03/27/19 03:45 120 16 94/62 (73) 100 03/27/19 03:45 120 16 94/62 (73) 100 03/27/19 03:30 122 17 89/59 (69) 100 03/27/19 03:30 94/62 03/27/19 03:30 122 17 89/59 (69) 100 03/27/19 03:25 112 18 97/62 (74) 100 03/27/19 03:15 121 18 89/59 (69) 100 03/27/19 03:15 97/62 03/27/19 03:00 121 18 86/58 (67) 100 03/27/19 03:00 86/58 03/27/19 02:59 95/59 03/27/19 02:45 121 18 95/59 (71) 100 03/27/19 02:41 123 17 40 03/27/19 02:30 121 18 125/70 (88) 100 03/27/19 02:30 125/70 03/27/19 02:15 122 18 99/61 (74) 100 03/27/19 02:00 122 18 124/95 (105) 100 03/27/19 02:00 124/95 03/27/19 01:56 121 88/52 03/27/19 01:45 122 19 68/48 (55) 100 03/27/19 01:30 119 17 88/52 (64) 100 03/27/19 01:30 120 17 50 03/27/19 01:30 88/52 03/27/19 01:15 118 17 68/48 (55) 100 03/27/19 01:00 63/52 03/27/19 01:00 119 17 63/52 (56) 100 03/27/19 00:45 119 17 89/50 (63) 100 03/27/19 00:30 118 17 74/50 (58) 100 03/27/19 00:25 73/53 03/27/19 00:15 118 17 74/50 (58) 100 03/27/19 00:00 Mechanical Ventilator 03/27/19 00:00 118 17 74/50 (58) 100 03/27/19 00:00 74/50 03/27/19 00:00 97 03/27/19 00:00 40 03/26/19 23:45 117 16 53/41 (45) 100 03/26/19 23:30 110 16 42/24 (30) 100 03/26/19 23:17 115 18 50 03/26/19 23:15 111 16 79/48 (58) 100 03/26/19 23:00 116 16 130/90 (103) 100 03/26/19 22:30 81/56 18 22:30 111 16 81/56 (64) 100 03/26/19 22:15 75/47 03/26/19 22:01 66/35 03/26/19 22:00 89 16 97/61 (73) 100 03/26/19 22:00 97/61 03/26/19 21:30 65 16 118/65 (82) 100 03/26/19 21:00 56 16 97/57 (70) 100 03/26/19 21:00 97/57 03/26/19 20:30 57 16 107/43 (64) 100 03/26/19 20:00 57 03/26/19 20:00 40 03/26/19 20:00 Mechanical Ventilator 03/26/19 20:00 110/51 03/26/19 20:00 54 16 110/51 (70) 100 03/26/19 19:30 97.7 53 16 108/49 (68) 100 03/26/19 19:14 48 16 50 03/26/19 19:14 48 16 100 Mechanical Ventilator 50 03/26/19 19:00 53 16 123/56 (78) 100 03/26/19 18:45 53 17 122/59 (80) 100 03/26/19 18:30 55 16 129/59 (82) 100 03/26/19 18:15 60 16 150/77 (101) 100 03/26/19 18:00 45 16 81/58 (66) 100 03/26/19 17:46 51 16 50 03/26/19 17:45 44 24 57/28 (38) 100 03/26/19 17:38 Mechanical Ventilator 03/26/19 17:30 49 22 74/35 (48) 98 03/26/19 17:15 48 32 66/35 (45) 95 03/26/19 16:15 97.8 78 18 120/58 94 Nasal Cannula 4.0 03/26/19 15:07 97.5 76 17 125/60 93 Nasal Cannula 4.0 03/26/19 12:22 96.9 59 16 110/59 94 Nasal Cannula 4.0 03/26/19 12:22 59 16 Nasal Cannula 4.0 03/26/19 12:07 94.6 54 17 109/53 (71) 91 Nasal Cannula 4.0 Intake and Output 03/26/19 03/27/19 19:00 07:00 Intake Total 397.5 ml 1525.90 ml Output Total 1250 ml 510 ml Balance -852.5 ml 1015.90 ml Intake IV Total 397.5 ml 1525.90 ml Output Urine Total 1250 ml 510 ml Laboratory Tests Test 03/26/19 13:50 03/26/19 15:00 03/26/19 16:48 03/26/19 18:50 White Blood Count 13.5 K/UL (4.8-10.8) H Red Blood Count 3.15 M/UL (4.70-6.10) L Hemoglobin 9.0 G/DL (14.2-18.0) L Hematocrit 28.3 % (42.0-52.0) L Mean Corpuscular Volume 90 FL (80-99) Mean Corpuscular Hemoglobin 28.5 PG (27.0-31.0) Mean Corpuscular Hemoglobin Concent 31.6 G/DL (32.0-36.0) L Red Cell Distribution Width 16.7 % (11.6-14.8) H Platelet Count 153 K/UL (150-450) Mean Platelet Volume 5.3 FL (6.5-10.1) L Neutrophils (%) (Auto) % (45.0-75.0) Lymphocytes (%) (Auto) % (20.0-45.0) Monocytes (%) (Auto) % (1.0-10.0) Eosinophils (%) (Auto) % (0.0-3.0) Basophils (%) (Auto) % (0.0-2.0) Differential Total Cells Counted 100 Neutrophils % (Manual) 80 % (45-75) H Lymphocytes % (Manual) 11 % (20-45) L Monocytes % (Manual) 2 % (1-10) Eosinophils % (Manual) 0 % (0-3) Basophils % (Manual) 0 % (0-2) Band Neutrophils 7 % (0-8) Platelet Estimate Adequate Platelet Morphology Normal Hypochromasia 1+ Anisocytosis 1+ Sodium Level 144 MMOL/L (136-145) Potassium Level 4.0 MMOL/L (3.5-5.1) Chloride Level 113 MMOL/L (98-107) H Carbon Dioxide Level 24 MMOL/L (21-32) Anion Gap 7 mmol/L (5-15) Blood Urea Nitrogen 17 mg/dL (7-18) Creatinine 1.1 MG/DL (0.55-1.30) Estimat Glomerular Filtration Rate mL/min (>60) Glucose Level 71 MG/DL (74-106) L Lactic Acid Level 3.20 mmol/L (0.4-2.0) H 2.60 mmol/L (0.66-2.22) H Calcium Level 8.9 MG/DL (8.5-10.1) Total Bilirubin 0.4 MG/DL (0.2-1.0) Aspartate Amino Transf (AST/SGOT) 17 U/L (15-37) Alanine Aminotransferase (ALT/SGPT) < 6 U/L (12-78) L Alkaline Phosphatase 76 U/L (46-116) Total Creatine Kinase 47 U/L (26-308) Creatine Kinase MB 5.1 NG/ML (0.0-3.6) H Creatine Kinase MB Relative Index 10.8 Troponin I 0.000 ng/mL (0.000-0.056) Pro-B-Type Natriuretic Peptide 2858 pg/mL (0-125) H Total Protein 6.7 G/DL (6.4-8.2) Albumin 1.2 G/DL (3.4-5.0) L Globulin 5.5 g/dL Albumin/Globulin Ratio 0.2 (1.0-2.7) L Arterial Blood pH 7.385 (7.350-7.450) 7.462 (7.350-7.450) Arterial Blood Partial Pressure CO2 43.1 mmHg (35.0-45.0) 29.0 mmHg (35.0-45.0) L Arterial Blood Partial Pressure O2 55.9 mmHg (75.0-100.0) L 411.3 mmHg (75.0-100.0) H Arterial Blood HCO3 25.2 mmol/L (22.0-26.0) 20.3 mmol/L (22.0-26.0) L Arterial Blood Oxygen Saturation 88.3 % (95-100) *L 99.3 % (95-100) Arterial Blood Base Excess 0.1 (-2-2) -2.8 (-2-2) L Cristofer Test Positive Positive Test 03/26/19 20:20 03/26/19 23:10 03/27/19 03:00 03/27/19 03:50 White Blood Count 21.0 K/UL (4.8-10.8) #H 21.4 K/UL (4.8-10.8) H Red Blood Count 2.92 M/UL (4.70-6.10) L 2.93 M/UL (4.70-6.10) L Hemoglobin 8.4 G/DL (14.2-18.0) L 8.3 G/DL (14.2-18.0) L Hematocrit 25.5 % (42.0-52.0) L 26.3 % (42.0-52.0) L Mean Corpuscular Volume 88 FL (80-99) 90 FL (80-99) Mean Corpuscular Hemoglobin 28.8 PG (27.0-31.0) 28.3 PG (27.0-31.0) Mean Corpuscular Hemoglobin Concent 32.9 G/DL (32.0-36.0) 31.5 G/DL (32.0-36.0) L Red Cell Distribution Width 15.9 % (11.6-14.8) H 16.6 % (11.6-14.8) H Platelet Count 187 K/UL (150-450) 203 K/UL (150-450) Mean Platelet Volume 4.9 FL (6.5-10.1) L 5.4 FL (6.5-10.1) L Neutrophils (%) (Auto) % (45.0-75.0) % (45.0-75.0) Lymphocytes (%) (Auto) % (20.0-45.0) % (20.0-45.0) Monocytes (%) (Auto) % (1.0-10.0) % (1.0-10.0) Eosinophils (%) (Auto) % (0.0-3.0) % (0.0-3.0) Basophils (%) (Auto) % (0.0-2.0) % (0.0-2.0) D-Dimer 3.16 mg/L FEU (0.00-0.49) H Sodium Level 140 MMOL/L (136-145) 139 MMOL/L (136-145) Potassium Level 3.7 MMOL/L (3.5-5.1) 3.9 MMOL/L (3.5-5.1) Chloride Level 106 MMOL/L (98-107) 105 MMOL/L (98-107) Carbon Dioxide Level 25 MMOL/L (21-32) 23 MMOL/L (21-32) Anion Gap 9 mmol/L (5-15) 11 mmol/L (5-15) Blood Urea Nitrogen 18 mg/dL (7-18) 18 mg/dL (7-18) Creatinine 1.2 MG/DL (0.55-1.30) 1.3 MG/DL (0.55-1.30) Estimat Glomerular Filtration Rate mL/min (>60) mL/min (>60) Glucose Level 111 MG/DL (74-106) H 126 MG/DL (74-106) H Lactic Acid Level 3.00 mmol/L (0.4-2.0) H 5.10 mmol/L (0.66-2.22) H Calcium Level 8.8 MG/DL (8.5-10.1) 8.5 MG/DL (8.5-10.1) Phosphorus Level 3.3 MG/DL (2.5-4.9) Magnesium Level 1.5 MG/DL (1.8-2.4) L Pro-B-Type Natriuretic Peptide 9191 pg/mL (0-125) H Differential Total Cells Counted 100 Neutrophils % (Manual) 92 % (45-75) H Lymphocytes % (Manual) 5 % (20-45) L Monocytes % (Manual) 0 % (1-10) L Eosinophils % (Manual) 0 % (0-3) Basophils % (Manual) 0 % (0-2) Band Neutrophils 3 % (0-8) Platelet Estimate Adequate Platelet Morphology Normal Hypochromasia 1+ Anisocytosis 1+ Troponin I 0.048 ng/mL (0.000-0.056) Test 03/27/19 07:15 03/27/19 08:30 Lactic Acid Level 2.70 mmol/L (0.4-2.0) H 2.60 mmol/L (0.66-2.22) H Microbiology Date/Time Source Procedure Growth Status 03/26/19 13:40 Blood Blood Culture - Preliminary Resulted Height (Feet): 6 Height (Inches): 2.00 Weight (Pounds): 173 Medications Current Medications Medications (Trade) Dose Ordered Sig/Vaughn Route PRN Reason Start Time Stop Time Status Last Admin Dose Admin Acetaminophen (Tylenol) 650 mg Q4H PRN ORAL Mild Pain/Temp > 100.5 03/26/19 17:30 04/25/19 17:29 Albuterol/ Ipratropium (Albuterol/ Ipratropium) 3 ml Q4H PRN HHN Shortness of Breath 03/26/19 17:30 03/31/19 17:29 Chlorhexidine Gluconate (Michelle-Hex 2%) 1 applic DAILY@2000 TOPIC 03/27/19 20:00 04/26/19 19:59 Furosemide (Lasix) 20 mg DAILY IV 03/26/19 17:45 04/25/19 17:14 Heparin Sodium (Porcine) (Heparin 5000 units/ml) 5,000 units EVERY 12 HOURS SUBQ 03/27/19 09:00 04/26/19 08:59 03/27/19 09:53 Norepinephrine Bitartrate 8 mg/ Dextrose 500 ml @ 0 mls/hr Q24H IV 03/27/19 07:00 04/26/19 06:59 03/27/19 07:59 Pantoprazole (Protonix) 40 mg DAILY IVP 03/27/19 09:00 04/26/19 08:59 03/27/19 09:53 Phenylephrine HCl 50 mg/Dextrose 250 ml @ 0 mls/hr Q24H IV 03/27/19 01:45 04/26/19 01:44 03/27/19 07:59 Piperacillin Sod/ Tazobactam Sod 3.375 gm/Sodium Chloride 110 ml @ 27.5 mls/hr EVERY 8 HOURS IVPB 03/26/19 22:00 03/31/19 21:59 03/27/19 05:37 Assessment/Plan Problem List: (1) Respiratory distress ICD Codes: R06.03 - Acute respiratory distress SNOMED: 594773028 (2) Decubitus skin ulcer Assessment & Plan: Pt presented on admission with multiple pressure injuries and ulcerations 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 Base of wound has mixed slough and necrosis. Edges adherent and dark . Periwound indurated with darker skin tone. Pt complained of pain when minimally palpated. Mild odor noted Full thickness ulcer R tibia. Base of wound has slough. Edges adherent and flat ,Periwound without erythema or fluctuance. Stable dry eschar noted to R hallux. edges are dark but adherent to base of wound. Periwound dark without erythema or fluctuance Stable dry eschar noted to R st metatarsal head. Periwound pale without fluctuance Stable dry eschar noted to dorsal aspects of R 3rd and 4th metatarsals. Full thickness ulcer lateral R 5th metatarsal. base of wound with some areas of necrosis and edges are black . No odor or exudate noted Stable dry eschar R heel . Periwound fluctuant without erythema. Pt complained of pain when minimally palpated. Stable dry eschar noted to dorso/flexor L foot. Periwound without erythema , induration or fluctuance Reabsorbing blood blister noted to medial L foot. Periwound without erythema or fluctuance L heel is dry and blanchable with historical scarring from previous wounds .Dry flaky skin noted to both feet. Tx.Plan: Swab all wounds both lower ext and feet with Betadine. Cover each wound with Optifoam drsgs every 3 days and prn. Cleanse Sacral wound with Saline. Apply Therahoney. Apply Moisture Barrier Paste periwound. Cover with Optifoam Drsg. Change Daily and prn. APM/PHIL mattress overlay. Reposition at least every 2hours or as tolerated. Off-load heels with pillow. ICD Codes: L89.90 - Pressure ulcer of unspecified site, unspecified stage SNOMED: 767532969 (3) Severe sepsis Assessment & Plan: leukocytosis anemia lactic acidosis on pressors septic labs noted imaging noted Cont IV abx as per ID feeds wounds evaluated and care plan as above labs noted f/u cxr will follow with recs thank you DAILY ESTIMATED NEEDS: Needs based on Wound, critical care 78.6kg 25-30 kcals/kg [id number] total kcals 1.25-2 g protein/kg 98-157 g total protein Fluid per MD, on lasix NUTRITION DIAGNOSIS: 1) Increased kcal/ pro needs r/t wound healing as evidenced by full thickness sacral wound, pending updated eval. 2) Swallowing difficulty r/t respiratory status as evidenced by s/p RR, pt now orally intubated, on pressor support. CURRENT DIET: Regular-> pt now intubated ENTERAL NUTRITION RECOMMENDATIONS: Osmolite 1.5 @55ml/hr x24 hrs + Prosource BID to provide 1320ml, 1980 kcal, 83g + 22g pro, 1006ml free H2O - WHEN HEMODYNAMICALLY STABLE, rec to obtain GI access, initiate non oral feeds to meed est nutritional needs - Start Osmolite 1.5 @25ml/hr for 6 hrs, advance as tolerated 10ml/hr q4-6 hrs to goal. - Flush per MD/ HOB over 30 degrees ADDITIONAL RECOMMENDATIONS: 1) Obtain a CALIBRATED bed wt 2) Feed w/ hemodynamic stability -> currently on pressors x2 3) WOUND CARE: Add BRUCE BID w/ GI access Add VIT C 250mg BID Add ZnSO4 220mg daily x10 days 4) On lasix, monitor lytes daily 5) [employer] eval upon extubation ICD Codes: A41.9 - Sepsis, unspecified organism; R65.20 - Severe sepsis without septic shock SNOMED: 73145733 (4) Dyspnea ICD Codes: R06.00 - Dyspnea, unspecified SNOMED: 383116716 (5) Hypoxia ICD Codes: R09.02 - Hypoxemia SNOMED: 400239196 Tawanda Alfaro Mar 27, 2019 11:47
[2019-03-27] MEDS ORDERED: Etomidate 40mg/20ml Inj IV ONE (13:37)
[2019-03-27] MEDS ORDERED: Zemuron 50mg/5ml Inj IV ONE (13:37)
--- NOTE | 2019-03-27 14:00 | NUR ---
NURSE NOTES:WOUND CARE NOTES: Pt presented on admission with full thickness sacral pressure injury with undermining Base of wound has 60% mixed slough/necrosis,40% pink granulation. Wound is malodorous. Small amt purulent munson exudate noted.Edges are detached with scattered slough along edges. (L)9cm x (W08.5cm x (D)2.5cm ,undermining clockwise 8-1by 2cm @9o'clock. Periwound dark without erythema or induration. Ful thickness pressure injury noted to cinthya R tibia(L)2cm x (W)_1cm. Base of wound is moist with Biofilm . Edges flat and adherent to base of wound. Periwound without erythema or induration. Areas of hyperpigmentation noted to R and L hallux. Dry peeling skin noted to both feet. Loose dry dark skin noted to R heel and l heel. Both heels are fluctuant when palpated. Tx.Plan: Cleanse sacral wound with Dakin's 0.125% stefani. Loose pack wound with Dakin's moist Kerlix. Apply Moisture Barrier paste to borders and cover with Optifoam drsg. Twice daily and prn. Cleanse Wound R tibia with Saline. Apply Therahoney. Cover with Optifoam drsg. Change every 3 days and prn. Apply Cavilon Skin BArrier to both heels. Cover each heel with Optifoam drsg. change every 7 days and prn. APM/PHIL Mattress overlay. Repostion at least every 2hours or as tolerated. Off-load heels with pillows.
--- NOTE | 2019-03-27 14:51 | NUR ---
NURSE NOTES: Wound care done with wound care nurse. Turned and repositioned. Kept dry and clean.
--- NOTE | 2019-03-27 15:16 | Cardiac Electrophysiology PN ---
Subjective Subjective [id number] Objective Last 24 Hour Vital Signs Date Time Temp Pulse Resp B/P (MAP) Pulse Ox O2 Delivery O2 Flow Rate FiO2 03/27/19 14:00 71 16 113/55 (74) 100 03/27/19 13:43 66 141/57 03/27/19 13:20 71 16 40 03/27/19 13:15 116 16 149/62 (91) 100 03/27/19 13:00 68 16 147/64 (91) 100 03/27/19 12:45 69 16 116/64 (81) 100 03/27/19 12:30 68 15 153/53 (86) 100 03/27/19 12:15 71 14 134/48 (76) 100 03/27/19 12:00 40 03/27/19 12:00 Mechanical Ventilator 03/27/19 12:00 139/55 03/27/19 12:00 74 03/27/19 12:00 99.2 70 17 139/55 (83) 100 03/27/19 11:45 102 17 137/53 (81) 100 03/27/19 11:30 70 17 153/56 (88) 100 03/27/19 11:15 111 18 78/49 (59) 100 03/27/19 11:00 76 17 108/57 (74) 100 03/27/19 11:00 108/57 03/27/19 10:59 72 16 40 03/27/19 10:45 76 17 108/57 (74) 100 03/27/19 10:15 74 16 126/57 (80) 100 03/27/19 10:00 91 16 112/51 (71) 100 03/27/19 10:00 112/51 03/27/19 09:45 91 16 112/51 (71) 100 03/27/19 09:26 74 16 40 03/27/19 09:00 121/78 03/27/19 09:00 100 17 91/51 (64) 100 03/27/19 08:45 100 17 91/51 (64) 100 03/27/19 08:30 87 17 96/72 (80) 100 03/27/19 08:15 114 17 139/55 (83) 100 03/27/19 08:00 97 17 127/51 (76) 100 03/27/19 08:00 84 03/27/19 08:00 Mechanical Ventilator 03/27/19 08:00 40 03/27/19 07:59 81/63 03/27/19 07:59 70 81/56 03/27/19 07:45 110 17 122/63 (82) 100 03/27/19 07:30 99.9 119 17 80/50 (60) 100 03/27/19 07:15 107 17 113/62 (79) 100 03/27/19 07:05 70 16 40 03/27/19 07:00 81/56 03/27/19 07:00 81/56 03/27/19 07:00 81/56 03/27/19 07:00 81/56 03/27/19 07:00 81/56 03/27/19 07:00 81/56 03/27/19 07:00 81/56 03/27/19 07:00 81/56 03/27/19 07:00 81/56 03/27/19 07:00 81/56 03/27/19 07:00 81/56 03/27/19 07:00 98.8 118 17 81/56 (64) 100 03/27/19 06:30 97 17 96/59 (71) 100 03/27/19 06:15 122 17 84/55 (65) 100 03/27/19 06:06 115 16 104/59 (74) 100 03/27/19 06:00 104/59 03/27/19 06:00 113 17 110/60 (77) 100 03/27/19 05:45 122 16 115/63 (80) 100 03/27/19 05:40 120 18 99/61 (74) 100 03/27/19 05:38 122 17 79/56 (64) 100 03/27/19 05:37 79/56 03/27/19 05:30 108 18 90/55 (67) 100 03/27/19 05:28 65/41 03/27/19 05:15 106 18 65/41 (49) 100 03/27/19 05:07 122 16 40 03/27/19 05:00 65/41 03/27/19 05:00 98.0 119 20 96/49 (65) 100 03/27/19 04:45 120 17 89/59 (69) 99 03/27/19 04:45 120 17 89/59 (69) 99 03/27/19 04:30 120 17 94/60 (71) 100 03/27/19 04:30 120 17 94/60 (71) 100 03/27/19 04:15 123 16 91/59 (70) 100 03/27/19 04:15 123 16 91/59 (70) 100 03/27/19 04:00 119 03/27/19 04:00 40 03/27/19 04:00 123 18 100/69 (79) 100 03/27/19 04:00 100/69 03/27/19 04:00 Mechanical Ventilator 03/27/19 04:00 123 18 100/69 (79) 100 03/27/19 03:45 120 16 94/62 (73) 100 03/27/19 03:45 120 16 94/62 (73) 100 03/27/19 03:30 122 17 89/59 (69) 100 03/27/19 03:30 94/62 03/27/19 03:30 122 17 89/59 (69) 100 03/27/19 03:25 112 18 97/62 (74) 100 03/27/19 03:15 121 18 89/59 (69) 100 03/27/19 03:15 97/62 03/27/19 03:00 121 18 86/58 (67) 100 03/27/19 03:00 86/58 03/27/19 02:59 95/59 03/27/19 02:45 121 18 95/59 (71) 100 03/27/19 02:41 123 17 40 03/27/19 02:30 121 18 125/70 (88) 100 03/27/19 02:30 125/70 03/27/19 02:15 122 18 99/61 (74) 100 03/27/19 02:00 122 18 124/95 (105) 100 03/27/19 02:00 124/95 03/27/19 01:56 121 88/52 03/27/19 01:45 122 19 68/48 (55) 100 03/27/19 01:30 119 17 88/52 (64) 100 03/27/19 01:30 120 17 50 03/27/19 01:30 88/52 03/27/19 01:15 118 17 68/48 (55) 100 03/27/19 01:00 63/52 03/27/19 01:00 119 17 63/52 (56) 100 03/27/19 00:45 119 17 89/50 (63) 100 03/27/19 00:30 118 17 74/50 (58) 100 03/27/19 00:25 73/53 03/27/19 00:15 118 17 74/50 (58) 100 03/27/19 00:00 Mechanical Ventilator 03/27/19 00:00 118 17 74/50 (58) 100 03/27/19 00:00 74/50 03/27/19 00:00 97 03/27/19 00:00 40 03/26/19 23:45 117 16 53/41 (45) 100 03/26/19 23:30 110 16 42/24 (30) 100 03/26/19 23:17 115 18 50 03/26/19 23:15 111 16 79/48 (58) 100 03/26/19 23:00 116 16 130/90 (103) 100 03/26/19 22:30 81/56 03/26/19 22:30 111 16 81/56 (64) 100 03/26/19 22:15 75/47 03/26/19 22:01 66/35 03/26/19 22:00 89 16 97/61 (73) 100 03/26/19 22:00 97/61 03/26/19 21:30 65 16 118/65 (82) 100 03/26/19 21:00 56 16 97/57 (70) 100 03/26/19 21:00 97/57 03/26/19 20:30 57 16 107/43 (64) 100 03/26/19 20:00 57 03/26/19 20:00 40 03/26/19 20:00 Mechanical Ventilator 03/26/19 20:00 110/51 03/26/19 20:00 54 16 110/51 (70) 100 03/26/19 19:30 97.7 53 16 108/49 (68) 100 03/26/19 19:14 48 16 50 03/26/19 19:14 48 16 100 Mechanical Ventilator 50 03/26/19 19:00 53 16 123/56 (78) 100 03/26/19 18:45 53 17 122/59 (80) 100 03/26/19 18:30 55 16 129/59 (82) 100 03/26/19 18:15 60 16 150/77 (101) 100 03/26/19 18:00 45 16 81/58 (66) 100 03/26/19 17:46 51 16 50 03/26/19 17:45 44 24 57/28 (38) 100 03/26/19 17:38 Mechanical Ventilator 03/26/19 17:30 49 22 74/35 (48) 98 03/26/19 17:15 48 32 66/35 (45) 95 03/26/19 16:15 97.8 78 18 120/58 94 Nasal Cannula 4.0 Intake and Output 03/26/19 03/27/19 19:00 07:00 Intake Total 397.5 ml 1525.90 ml Output Total 1250 ml 510 ml Balance -852.5 ml 1015.90 ml Intake IV Total 397.5 ml 1525.90 ml Output Urine Total 1250 ml 510 ml Laboratory Tests Test 03/26/19 16:48 03/26/19 18:50 03/26/19 20:20 03/26/19 23:10 Arterial Blood pH 7.385 (7.350-7.450) 7.462 (7.350-7.450) Arterial Blood Partial Pressure CO2 43.1 mmHg (35.0-45.0) 29.0 mmHg (35.0-45.0) L Arterial Blood Partial Pressure O2 55.9 mmHg (75.0-100.0) L 411.3 mmHg (75.0-100.0) H Arterial Blood HCO3 25.2 mmol/L (22.0-26.0) 20.3 mmol/L (22.0-26.0) L Arterial Blood Oxygen Saturation 88.3 % (95-100) *L 99.3 % (95-100) Arterial Blood Base Excess 0.1 (-2-2) -2.8 (-2-2) L Cristofer Test Positive Positive White Blood Count 21.0 K/UL (4.8-10.8) #H Red Blood Count 2.92 M/UL (4.70-6.10) L Hemoglobin 8.4 G/DL (14.2-18.0) L Hematocrit 25.5 % (42.0-52.0) L Mean Corpuscular Volume 88 FL (80-99) Mean Corpuscular Hemoglobin 28.8 PG (27.0-31.0) Mean Corpuscular Hemoglobin Concent 32.9 G/DL (32.0-36.0) Red Cell Distribution Width 15.9 % (11.6-14.8) H Platelet Count 187 K/UL (150-450) Mean Platelet Volume 4.9 FL (6.5-10.1) L Neutrophils (%) (Auto) % (45.0-75.0) Lymphocytes (%) (Auto) % (20.0-45.0) Monocytes (%) (Auto) % (1.0-10.0) Eosinophils (%) (Auto) % (0.0-3.0) Basophils (%) (Auto) % (0.0-2.0) D-Dimer 3.16 mg/L FEU (0.00-0.49) H Sodium Level 140 MMOL/L (136-145) Potassium Level 3.7 MMOL/L (3.5-5.1) Chloride Level 106 MMOL/L (98-107) Carbon Dioxide Level 25 MMOL/L (21-32) Anion Gap 9 mmol/L (5-15) Blood Urea Nitrogen 18 mg/dL (7-18) Creatinine 1.2 MG/DL (0.55-1.30) Estimat Glomerular Filtration Rate mL/min (>60) Glucose Level 111 MG/DL (74-106) H Lactic Acid Level 3.00 mmol/L (0.4-2.0) H 5.10 mmol/L (0.66-2.22) H Calcium Level 8.8 MG/DL (8.5-10.1) Phosphorus Level 3.3 MG/DL (2.5-4.9) Magnesium Level 1.5 MG/DL (1.8-2.4) L Test 03/27/19 03:00 03/27/19 03:50 03/27/19 07:15 03/27/19 08:30 Pro-B-Type Natriuretic Peptide 9191 pg/mL (0-125) H White Blood Count 21.4 K/UL (4.8-10.8) H Red Blood Count 2.93 M/UL (4.70-6.10) L Hemoglobin 8.3 G/DL (14.2-18.0) L Hematocrit 26.3 % (42.0-52.0) L Mean Corpuscular Volume 90 FL (80-99) Mean Corpuscular Hemoglobin 28.3 PG (27.0-31.0) Mean Corpuscular Hemoglobin Concent 31.5 G/DL (32.0-36.0) L Red Cell Distribution Width 16.6 % (11.6-14.8) H Platelet Count 203 K/UL (150-450) Mean Platelet Volume 5.4 FL (6.5-10.1) L Neutrophils (%) (Auto) % (45.0-75.0) Lymphocytes (%) (Auto) % (20.0-45.0) Monocytes (%) (Auto) % (1.0-10.0) Eosinophils (%) (Auto) % (0.0-3.0) Basophils (%) (Auto) % (0.0-2.0) Differential Total Cells Counted 100 Neutrophils % (Manual) 92 % (45-75) H Lymphocytes % (Manual) 5 % (20-45) L Monocytes % (Manual) 0 % (1-10) L Eosinophils % (Manual) 0 % (0-3) Basophils % (Manual) 0 % (0-2) Band Neutrophils 3 % (0-8) Platelet Estimate Adequate Platelet Morphology Normal Hypochromasia 1+ Anisocytosis 1+ Sodium Level 139 MMOL/L (136-145) Potassium Level 3.9 MMOL/L (3.5-5.1) Chloride Level 105 MMOL/L (98-107) Carbon Dioxide Level 23 MMOL/L (21-32) Anion Gap 11 mmol/L (5-15) Blood Urea Nitrogen 18 mg/dL (7-18) Creatinine 1.3 MG/DL (0.55-1.30) Estimat Glomerular Filtration Rate mL/min (>60) Glucose Level 126 MG/DL (74-106) H Calcium Level 8.5 MG/DL (8.5-10.1) Troponin I 0.048 ng/mL (0.000-0.056) Lactic Acid Level 2.70 mmol/L (0.4-2.0) H 2.60 mmol/L (0.66-2.22) H Microbiology Date/Time Source Procedure Growth Status 03/26/19 13:40 Blood Blood Culture - Preliminary Resulted Christian Vargas MD Mar 27, 2019 15:16
--- NOTE | 2019-03-27 16:20 | Pulmonolgy Critical Care Note ---
Critical Care - Asmt/Plan Problems: (1) Severe sepsis (2) Respiratory distress (3) Dyspnea (4) Hypoxia (5) Decubitus skin ulcer (6) Lung mass (7) Multifocal pneumonia Assessment/Plan: D/C Lasix, start D5NS@100 Continue ventilatory support/settings reviewed PRN HHN's SBT in am Titrate KRANTHI off first, then NE to keep MAP > 60 F/U cortisol and TSH Vanco/Zosyn (D1) per ID F/U Cx's F/U cards recs Continue Hep SQ, resume Xarelto once NGT placed NGT Once acute issues resolved can address known RUL mass FC, continue to discuss GOC Time Spent (Minutes): 60 Notes Reviewed: pharmacy technician, cardio, ID, other - surgery Discussed with: nurses, consultants Critical Care - Objective Last 24 Hour Vital Signs Date Time Temp Pulse Resp B/P (MAP) Pulse Ox O2 Delivery O2 Flow Rate FiO2 03/27/19 15:07 59 16 40 03/27/19 15:00 121 16 136/49 (78) 100 03/27/19 14:00 71 16 113/55 (74) 100 03/27/19 13:43 66 141/57 03/27/19 13:20 71 16 40 03/27/19 13:15 116 16 149/62 (91) 100 03/27/19 13:00 68 16 147/64 (91) 100 03/27/19 12:45 69 16 116/64 (81) 100 03/27/19 12:30 68 15 153/53 (86) 100 03/27/19 12:15 71 14 134/48 (76) 100 03/27/19 12:00 40 03/27/19 12:00 Mechanical Ventilator 03/27/19 12:00 139/55 03/27/19 12:00 74 03/27/19 12:00 99.2 70 17 139/55 (83) 100 03/27/19 11:45 102 17 137/53 (81) 100 03/27/19 11:30 70 17 153/56 (88) 100 03/27/19 11:15 111 18 78/49 (59) 100 03/27/19 11:00 76 17 108/57 (74) 100 03/27/19 11:00 108/57 03/27/19 10:59 72 16 40 03/27/19 10:45 76 17 108/57 (74) 100 03/27/19 10:15 74 16 126/57 (80) 100 03/27/19 10:00 91 16 112/51 (71) 100 03/27/19 10:00 112/51 03/27/19 09:45 91 16 112/51 (71) 100 03/27/19 09:26 74 16 40 03/27/19 09:00 121/78 03/27/19 09:00 100 17 91/51 (64) 100 03/27/19 08:45 100 17 91/51 (64) 100 03/27/19 08:30 87 17 96/72 (80) 100 03/27/19 08:15 114 17 139/55 (83) 100 03/27/19 08:00 97 17 127/51 (76) 100 03/27/19 08:00 84 03/27/19 08:00 Mechanical Ventilator 03/27/19 08:00 40 03/27/19 07:59 81/63 03/27/19 07:59 70 81/56 03/27/19 07:45 110 17 122/63 (82) 100 03/27/19 07:30 99.9 119 17 80/50 (60) 100 03/27/19 07:15 107 17 113/62 (79) 100 03/27/19 07:05 70 16 40 03/27/19 07:00 81/56 03/27/19 07:00 81/56 03/27/19 07:00 81/56 03/27/19 07:00 81/56 03/27/19 07:00 81/56 03/27/19 07:00 81/56 03/27/19 07:00 81/56 03/27/19 07:00 81/56 03/27/19 07:00 81/56 03/27/19 07:00 81/56 03/27/19 07:00 81/56 03/27/19 07:00 98.8 118 17 81/56 (64) 100 03/27/19 06:30 97 17 96/59 (71) 100 03/27/19 06:15 122 17 84/55 (65) 100 03/27/19 06:06 115 16 104/59 (74) 100 03/27/19 06:00 104/59 03/27/19 06:00 113 17 110/60 (77) 100 03/27/19 05:45 122 16 115/63 (80) 100 03/27/19 05:40 120 18 99/61 (74) 100 03/27/19 05:38 122 17 79/56 (64) 100 03/27/19 05:37 79/56 03/27/19 05:30 108 18 90/55 (67) 100 03/27/19 05:28 65/41 03/27/19 05:15 106 18 65/41 (49) 100 03/27/19 05:07 122 16 40 03/27/19 05:00 65/41 03/27/19 05:00 98.0 119 20 96/49 (65) 100 03/27/19 04:45 120 17 89/59 (69) 99 03/27/19 04:45 120 17 89/59 (69) 99 03/27/19 04:30 120 17 94/60 (71) 100 03/27/19 04:30 120 17 94/60 (71) 100 03/27/19 04:15 123 16 91/59 (70) 100 03/27/19 04:15 123 16 91/59 (70) 100 03/27/19 04:00 119 03/27/19 04:00 40 03/27/19 04:00 123 18 100/69 (79) 100 03/27/19 04:00 100/69 03/27/19 04:00 Mechanical Ventilator 03/27/19 04:00 123 18 100/69 (79) 100 03/27/19 03:45 120 16 94/62 (73) 100 03/27/19 03:45 120 16 94/62 (73) 100 03/27/19 03:30 122 17 89/59 (69) 100 03/27/19 03:30 94/62 03/27/19 03:30 122 17 89/59 (69) 100 03/27/19 03:25 112 18 97/62 (74) 100 03/27/19 03:15 121 18 89/59 (69) 100 03/27/19 03:15 97/62 03/27/19 03:00 121 18 86/58 (67) 100 03/27/19 03:00 86/58 03/27/19 02:59 95/59 03/27/19 02:45 121 18 95/59 (71) 100 03/27/19 02:41 123 17 40 03/27/19 02:30 121 18 125/70 (88) 100 03/27/19 02:30 125/70 03/27/19 02:15 122 18 99/61 (74) 100 03/27/19 02:00 122 18 124/95 (105) 100 03/27/19 02:00 124/95 03/27/19 01:56 121 88/52 03/27/19 01:45 122 19 68/48 (55) 100 03/27/19 01:30 119 17 88/52 (64) 100 03/27/19 01:30 120 17 50 03/27/19 01:30 88/52 03/27/19 01:15 118 17 68/48 (55) 100 03/27/19 01:00 63/52 03/27/19 01:00 119 17 63/52 (56) 100 03/27/19 00:45 119 17 89/50 (63) 100 03/27/19 00:30 118 17 74/50 (58) 100 03/27/19 00:25 73/53 03/27/19 00:15 118 17 74/50 (58) 100 03/27/19 00:00 Mechanical Ventilator 03/27/19 00:00 118 17 74/50 (58) 100 03/27/19 00:00 74/50 03/27/19 00:00 97 03/27/19 00:00 40 03/26/19 23:45 117 16 53/41 (45) 100 03/26/19 23:30 110 16 42/24 (30) 100 03/26/19 23:17 115 18 50 03/26/19 23:15 111 16 79/48 (58) 100 03/26/19 23:00 116 16 130/90 (103) 100 03/26/19 22:30 81/56 03/26/19 22:30 111 16 81/56 (64) 100 03/26/19 22:15 75/47 03/26/19 22:01 66/35 03/26/19 22:00 89 16 97/61 (73) 100 03/26/19 22:00 97/61 03/26/19 21:30 65 16 118/65 (82) 100 03/26/19 21:00 56 16 97/57 (70) 100 03/26/19 21:00 97/57 03/26/19 20:30 57 16 107/43 (64) 100 03/26/19 20:00 57 03/26/19 20:00 40 03/26/19 20:00 Mechanical Ventilator 03/26/19 20:00 110/51 03/26/19 20:00 54 16 110/51 (70) 100 03/26/19 19:30 97.7 53 16 108/49 (68) 100 03/26/19 19:14 48 16 50 03/26/19 19:14 48 16 100 Mechanical Ventilator 50 03/26/19 19:00 53 16 123/56 (78) 100 03/26/19 18:45 53 17 122/59 (80) 100 03/26/19 18:30 55 16 129/59 (82) 100 03/26/19 18:15 60 16 150/77 (101) 100 03/26/19 18:00 45 16 81/58 (66) 100 03/26/19 17:46 51 16 50 03/26/19 17:45 44 24 57/28 (38) 100 03/26/19 17:38 Mechanical Ventilator 03/26/19 17:30 49 22 74/35 (48) 98 03/26/19 17:15 48 32 66/35 (45) 95 03/26/19 16:15 97.8 78 18 120/58 94 Nasal Cannula 4.0 Status: sedated, other - intubated Condition: critical HEENT: atraumatic, normocephalic, other - ETT Lungs: rhonchi Heart: HR/BP stable Abdomen: soft, non-tender, active bowel sounds Extremities: edema Decubiti: location - mult, stage Micro: Microbiology Date/Time Source Procedure Growth Status 03/26/19 13:40 Blood Blood Culture - Preliminary Resulted Blood Sugars: BS controlled Critical Care - Subjective ROS Limited/Unobtainable: Yes ICU Day: 1 Intubation Day: 1 Interval Events: 87 f NHR RUL mass prior DVT PE multiple decub BIB EMS with SOB and multilobar PNA, inc WOB on the floor, intubated and transferred to ICU, stable on vent but on NE and KRANTHI, awake no distress, mod thick secretions. Condition: critical IV Access: central - R fem EKG Rhythm: Junctional FI02: 40 Vent Support Breath Rate: 16 Vent Support Mode: AC Vent Tidal Volume: 600 Sputum Amount: Moderate PEEP: 5.0 PIP: 23 Fluids: NS@5 Drips: NE 16, KRANTHI 120 I&O: Intake and Output 03/26/19 03/27/19 19:00 07:00 Intake Total 397.5 ml 1525.90 ml Output Total 1250 ml 510 ml Balance -852.5 ml 1015.90 ml Intake IV Total 397.5 ml 1525.90 ml Output Urine Total 1250 ml 510 ml Subjective: intubated CLAYTON CXR: B infiltrates ET-Tube: 7.5 ET Position: 24 Labs: Laboratory Tests Test 03/26/19 16:48 03/26/19 18:50 03/26/19 20:20 03/26/19 23:10 Arterial Blood pH 7.385 (7.350-7.450) 7.462 (7.350-7.450) Arterial Blood Partial Pressure CO2 43.1 mmHg (35.0-45.0) 29.0 mmHg (35.0-45.0) L Arterial Blood Partial Pressure O2 55.9 mmHg (75.0-100.0) L 411.3 mmHg (75.0-100.0) H Arterial Blood HCO3 25.2 mmol/L (22.0-26.0) 20.3 mmol/L (22.0-26.0) L Arterial Blood Oxygen Saturation 88.3 % (95-100) *L 99.3 % (95-100) Arterial Blood Base Excess 0.1 (-2-2) -2.8 (-2-2) L Cristofer Test Positive Positive White Blood Count 21.0 K/UL (4.8-10.8) #H Red Blood Count 2.92 M/UL (4.70-6.10) L Hemoglobin 8.4 G/DL (14.2-18.0) L Hematocrit 25.5 % (42.0-52.0) L Mean Corpuscular Volume 88 FL (80-99) Mean Corpuscular Hemoglobin 28.8 PG (27.0-31.0) Mean Corpuscular Hemoglobin Concent 32.9 G/DL (32.0-36.0) Red Cell Distribution Width 15.9 % (11.6-14.8) H Platelet Count 187 K/UL (150-450) Mean Platelet Volume 4.9 FL (6.5-10.1) L Neutrophils (%) (Auto) % (45.0-75.0) Lymphocytes (%) (Auto) % (20.0-45.0) Monocytes (%) (Auto) % (1.0-10.0) Eosinophils (%) (Auto) % (0.0-3.0) Basophils (%) (Auto) % (0.0-2.0) D-Dimer 3.16 mg/L FEU (0.00-0.49) H Sodium Level 140 MMOL/L (136-145) Potassium Level 3.7 MMOL/L (3.5-5.1) Chloride Level 106 MMOL/L (98-107) Carbon Dioxide Level 25 MMOL/L (21-32) Anion Gap 9 mmol/L (5-15) Blood Urea Nitrogen 18 mg/dL (7-18) Creatinine 1.2 MG/DL (0.55-1.30) Estimat Glomerular Filtration Rate mL/min (>60) Glucose Level 111 MG/DL (74-106) H Lactic Acid Level 3.00 mmol/L (0.4-2.0) H 5.10 mmol/L (0.66-2.22) H Calcium Level 8.8 MG/DL (8.5-10.1) Phosphorus Level 3.3 MG/DL (2.5-4.9) Magnesium Level 1.5 MG/DL (1.8-2.4) L Test 03/27/19 03:00 03/27/19 03:50 03/27/19 07:15 03/27/19 08:30 Pro-B-Type Natriuretic Peptide 9191 pg/mL (0-125) H White Blood Count 21.4 K/UL (4.8-10.8) H Red Blood Count 2.93 M/UL (4.70-6.10) L Hemoglobin 8.3 G/DL (14.2-18.0) L Hematocrit 26.3 % (42.0-52.0) L Mean Corpuscular Volume 90 FL (80-99) Mean Corpuscular Hemoglobin 28.3 PG (27.0-31.0) Mean Corpuscular Hemoglobin Concent 31.5 G/DL (32.0-36.0) L Red Cell Distribution Width 16.6 % (11.6-14.8) H Platelet Count 203 K/UL (150-450) Mean Platelet Volume 5.4 FL (6.5-10.1) L Neutrophils (%) (Auto) % (45.0-75.0) Lymphocytes (%) (Auto) % (20.0-45.0) Monocytes (%) (Auto) % (1.0-10.0) Eosinophils (%) (Auto) % (0.0-3.0) Basophils (%) (Auto) % (0.0-2.0) Differential Total Cells Counted 100 Neutrophils % (Manual) 92 % (45-75) H Lymphocytes % (Manual) 5 % (20-45) L Monocytes % (Manual) 0 % (1-10) L Eosinophils % (Manual) 0 % (0-3) Basophils % (Manual) 0 % (0-2) Band Neutrophils 3 % (0-8) Platelet Estimate Adequate Platelet Morphology Normal Hypochromasia 1+ Anisocytosis 1+ Sodium Level 139 MMOL/L (136-145) Potassium Level 3.9 MMOL/L (3.5-5.1) Chloride Level 105 MMOL/L (98-107) Carbon Dioxide Level 23 MMOL/L (21-32) Anion Gap 11 mmol/L (5-15) Blood Urea Nitrogen 18 mg/dL (7-18) Creatinine 1.3 MG/DL (0.55-1.30) Estimat Glomerular Filtration Rate mL/min (>60) Glucose Level 126 MG/DL (74-106) H Calcium Level 8.5 MG/DL (8.5-10.1) Troponin I 0.048 ng/mL (0.000-0.056) Lactic Acid Level 2.70 mmol/L (0.4-2.0) H 2.60 mmol/L (0.66-2.22) H Test 03/27/19 15:45 Lactic Acid Level Pending Joaquim Bello MD Mar 27, 2019 16:20
--- NOTE | 2019-03-27 16:30 | NUR ---
NURSE NOTES: NGT inserted in right nare 65cm per Dr. Bello, confirmed with CXR and auscultation, witnessed by BILLIE Perry. Turned and repositioned. Oral care done. Patient is more awake, follows simple commands and able to recognize family members.
[2019-03-27] MEDS: D5NS 1,000 ML IV SCH (16:53)
[2019-03-27] MEDS ORDERED: Vancomycin 1.5gm Premix IVPB ONE (17:00)
--- NOTE | 2019-03-27 18:01 | Diagnostic Imaging Report ---
Indication: Post nasogastric tube placement Technique: Supine view of the upper abdomen Comparison: none Findings: There is a nasogastric tube in place, tip of which projects at the level of the gastric fundus, proximal port just beyond the expected level of the gastroesophageal junction. The visualized bowel gas is grossly unremarkable. There is suggestion of some parenchymal pulmonary consolidation in the included right upper lobe Impression: Satisfactory nasogastric intubation Right upper lobe infiltrate, also previously reported This agrees with the preliminary interpretation provided overnight by [facility] teleradiology service.
[2019-03-27] MEDS: Ascorbic Acid 500mg tab ORAL SCH (18:14)
--- NOTE | 2019-03-27 18:26 | Consultation ---
History of Present Illness General Chief Complaint: Dyspnea/Respdistress Present Illness Allergies: Coded Allergies: No Known Allergies (Unverified , 01/18/19) Medication History Scheduled Amino Acids/Protein Hydrolys (Pro-Stat Liquid), 30 ML ORAL THREE TIMES A DAY, ( Reported) Divalproex Sodium (Divalproex Sodium), 250 MG PO Q8HR, (Reported) Docusate Sodium* (Colace*), 100 MG ORAL BID, (Reported) Ferrous Sulfate (Ferrous Sulfate), 325 MG ORAL BID, (Reported) Lisinopril* (Lisinopril*), 10 MG ORAL DAILY, (Reported) Megestrol Acetate (Megestrol Acetate), 400 MG PO BID, (Reported) Metoprolol Tartrate* (Metoprolol Tartrate*), 50 MG ORAL DAILY, (Reported) Midodrine (Midodrine HCl), 10 MG ORAL THREE TIMES A DAY, (Reported) Fdgngcdyqvtd-Vsqh-Jofxuweg,Iso (Zosyn 3.375 Gm Pre Mix-Bag), 3.375 GM IVPB EVERY 8 HOURS, (Reported) Gqhxxpldvoyj-Doiu-Xbmknsck,Iso (Zosyn 3.375 Gm Pre Mix-Bag), 3.375 GM IVPB EVERY 8 HOURS, (Reported) Risperidone* (Risperdal*), 0.5 MG ORAL DAILY, (Reported) Rivaroxaban (Xarelto), 15 MG ORAL DAILY, (Reported) Vancomycin In Dextrose,Iso-Osm (Vancomycin 750 Mg/150 Ml Bag), 750 MG IV DAILY, (Reported) Scheduled PRN Acetaminophen* (Acetaminophen 325MG Tablet*), 650 MG ORAL Q4H PRN for Mild Pain (Pain Scale 1-3), (Reported) Ipratropium Bandon 0.5MG/2.5ML (Ipratropium Bandon 0.5MG/2.5ML), 0.5 MG HHN Q6H PRN for Shortness of Breath, (Reported) Magnesium Hydroxide* (Milk Of Magnesia*), 30 ML ORAL DAILY PRN for Constipation, (Reported) Temazepam (Temazepam*), 15 MG ORAL BEDTIME PRN for SLEEP, (Reported) Discontinued Medications Ascorbic Acid (Vitamin C), 500 MG PO BID, (Reported) Discontinued Reason: Therapy completed Multivitamin With Minerals (Multivitamins With Minerals*), 1 TAB ORAL DAILY, ( Reported) Discontinued Reason: Therapy completed Zinc Sulfate (Zinc Sulfate*), 220 MG ORAL DAILY, (Reported) Discontinued Reason: Therapy completed Patient History Healthcare decision maker Tri Neely Resuscitation status Full Code Advanced Directive on File Physical Exam Last 24 Hour Vital Signs Date Time Temp Pulse Resp B/P (MAP) Pulse Ox O2 Delivery O2 Flow Rate FiO2 03/27/19 18:00 65 16 155/54 (87) 100 03/27/19 17:30 65 16 144/51 (82) 100 03/27/19 17:15 69 17 88/53 (65) 100 03/27/19 17:00 72 17 40 03/27/19 17:00 116/61 03/27/19 17:00 81 16 137/45 (75) 100 03/27/19 16:45 66 16 145/51 (82) 100 03/27/19 16:45 74 16 116/61 (79) 100 03/27/19 16:30 109 16 104/86 (92) 100 03/27/19 16:23 148/52 03/27/19 16:15 65 16 134/55 (81) 100 03/27/19 16:00 40 03/27/19 16:00 64 03/27/19 16:00 148/52 03/27/19 16:00 97.1 66 16 148/62 (90) 100 03/27/19 16:00 Mechanical Ventilator 03/27/19 15:45 66 16 145/51 (82) 100 03/27/19 15:30 77 16 126/50 (75) 100 03/27/19 15:15 65 16 86/48 (61) 100 03/27/19 15:07 59 16 40 03/27/19 15:00 121 16 136/49 (78) 100 03/27/19 14:45 109 18 136/49 (78) 100 03/27/19 14:30 119 24 107/41 (63) 100 03/27/19 14:00 71 16 113/55 (74) 100 03/27/19 13:45 91 16 67/53 (58) 100 03/27/19 13:43 66 141/57 03/27/19 13:30 69 16 69/48 (55) 100 03/27/19 13:20 71 16 40 03/27/19 13:15 116 16 149/62 (91) 100 03/27/19 13:00 68 16 147/64 (91) 100 03/27/19 12:45 69 16 116/64 (81) 100 03/27/19 12:30 68 15 153/53 (86) 100 03/27/19 12:15 71 14 134/48 (76) 100 03/27/19 12:00 40 03/27/19 12:00 Mechanical Ventilator 03/27/19 12:00 139/55 03/27/19 12:00 74 03/27/19 12:00 99.2 70 17 139/55 (83) 100 03/27/19 11:45 102 17 137/53 (81) 100 03/27/19 11:30 70 17 153/56 (88) 100 03/27/19 11:15 111 18 78/49 (59) 100 03/27/19 11:00 76 17 108/57 (74) 100 03/27/19 11:00 108/57 03/27/19 10:59 72 16 40 03/27/19 10:45 76 17 108/57 (74) 100 03/27/19 10:15 74 16 126/57 (80) 100 03/27/19 10:00 91 16 112/51 (71) 100 03/27/19 10:00 112/51 03/27/19 09:45 91 16 112/51 (71) 100 03/27/19 09:26 74 16 40 03/27/19 09:00 121/78 03/27/19 09:00 100 17 91/51 (64) 100 03/27/19 08:45 100 17 91/51 (64) 100 03/27/19 08:30 87 17 96/72 (80) 100 03/27/19 08:15 114 17 139/55 (83) 100 03/27/19 08:00 97 17 127/51 (76) 100 03/27/19 08:00 84 03/27/19 08:00 Mechanical Ventilator 03/27/19 08:00 40 03/27/19 07:59 81/63 03/27/19 07:59 70 81/56 03/27/19 07:45 110 17 122/63 (82) 100 03/27/19 07:30 99.9 119 17 80/50 (60) 100 03/27/19 07:15 107 17 113/62 (79) 100 03/27/19 07:05 70 16 40 03/27/19 07:00 81/56 03/27/19 07:00 81/56 03/27/19 07:00 81/56 03/27/19 07:00 81/56 03/27/19 07:00 81/56 03/27/19 07:00 81/56 03/27/19 07:00 81/56 03/27/19 07:00 81/56 03/27/19 07:00 81/56 03/27/19 07:00 81/56 03/27/19 07:00 81/56 03/27/19 07:00 98.8 118 17 81/56 (64) 100 03/27/19 06:30 97 17 96/59 (71) 100 03/27/19 06:15 122 17 84/55 (65) 100 03/27/19 06:06 115 16 104/59 (74) 100 03/27/19 06:00 104/59 03/27/19 06:00 113 17 110/60 (77) 100 03/27/19 05:45 122 16 115/63 (80) 100 03/27/19 05:40 120 18 99/61 (74) 100 03/27/19 05:38 122 17 79/56 (64) 100 03/27/19 05:37 79/56 03/27/19 05:30 108 18 90/55 (67) 100 03/27/19 05:28 65/41 03/27/19 05:15 106 18 65/41 (49) 100 03/27/19 05:07 122 16 40 03/27/19 05:00 65/41 03/27/19 05:00 98.0 119 20 96/49 (65) 100 03/27/19 04:45 120 17 89/59 (69) 99 03/27/19 04:45 120 17 89/59 (69) 99 03/27/19 04:30 120 17 94/60 (71) 100 03/27/19 04:30 120 17 94/60 (71) 100 03/27/19 04:15 123 16 91/59 (70) 100 03/27/19 04:15 123 16 91/59 (70) 100 03/27/19 04:00 119 03/27/19 04:00 40 03/27/19 04:00 123 18 100/69 (79) 100 03/27/19 04:00 100/69 03/27/19 04:00 Mechanical Ventilator 03/27/19 04:00 123 18 100/69 (79) 100 03/27/19 03:45 120 16 94/62 (73) 100 03/27/19 03:45 120 16 94/62 (73) 100 03/27/19 03:30 122 17 89/59 (69) 100 03/27/19 03:30 94/62 03/27/19 03:30 122 17 89/59 (69) 100 03/27/19 03:25 112 18 97/62 (74) 100 03/27/19 03:15 121 18 89/59 (69) 100 03/27/19 03:15 97/62 03/27/19 03:00 121 18 86/58 (67) 100 03/27/19 03:00 86/58 03/27/19 02:59 95/59 03/27/19 02:45 121 18 95/59 (71) 100 03/27/19 02:41 123 17 40 03/27/19 02:30 121 18 125/70 (88) 100 03/27/19 02:30 125/70 03/27/19 02:15 122 18 99/61 (74) 100 03/27/19 02:00 122 18 124/95 (105) 100 03/27/19 02:00 124/95 03/27/19 01:56 121 88/52 03/27/19 01:45 122 19 68/48 (55) 100 03/27/19 01:30 119 17 88/52 (64) 100 03/27/19 01:30 120 17 50 03/27/19 01:30 88/52 03/27/19 01:15 118 17 68/48 (55) 100 03/27/19 01:00 63/52 03/27/19 01:00 119 17 63/52 (56) 100 03/27/19 00:45 119 17 89/50 (63) 100 03/27/19 00:30 118 17 74/50 (58) 100 03/27/19 00:25 73/53 03/27/19 00:15 118 17 74/50 (58) 100 03/27/19 00:00 Mechanical Ventilator 03/27/19 00:00 118 17 74/50 (58) 100 03/27/19 00:00 74/50 03/27/19 00:00 97 03/27/19 00:00 40 03/26/19 23:45 117 16 53/41 (45) 100 03/26/19 23:30 110 16 42/24 (30) 100 03/26/19 23:17 115 18 50 03/26/19 23:15 111 16 79/48 (58) 100 03/26/19 23:00 116 16 130/90 (103) 100 03/26/19 22:30 81/56 03/26/19 22:30 111 16 81/56 (64) 100 03/26/19 22:15 75/47 03/26/19 22:01 66/35 03/26/19 22:00 89 16 97/61 (73) 100 03/26/19 22:00 97/61 03/26/19 21:30 65 16 118/65 (82) 100 03/26/19 21:00 56 16 97/57 (70) 100 03/26/19 21:00 97/57 03/26/19 20:30 57 16 107/43 (64) 100 03/26/19 20:00 57 03/26/19 20:00 40 03/26/19 20:00 Mechanical Ventilator 03/26/19 20:00 110/51 03/26/19 20:00 54 16 110/51 (70) 100 03/26/19 19:30 97.7 53 16 108/49 (68) 100 03/26/19 19:14 48 16 50 03/26/19 19:14 48 16 100 Mechanical Ventilator 50 03/26/19 19:00 53 16 123/56 (78) 100 03/26/19 18:45 53 17 122/59 (80) 100 03/26/19 18:30 55 16 129/59 (82) 100 Intake and Output 03/26/19 03/27/19 19:00 07:00 Intake Total 397.5 ml 1525.90 ml Output Total 1250 ml 510 ml Balance -852.5 ml 1015.90 ml IV Total 397.5 ml 1525.90 ml Output Urine Total 1250 ml 510 ml Laboratory Tests Test 03/26/19 18:50 03/26/19 20:20 03/26/19 23:10 03/27/19 03:00 Arterial Blood pH 7.462 (7.350-7.450) Arterial Blood Partial Pressure CO2 29.0 mmHg (35.0-45.0) L Arterial Blood Partial Pressure O2 411.3 mmHg (75.0-100.0) H Arterial Blood HCO3 20.3 mmol/L (22.0-26.0) L Arterial Blood Oxygen Saturation 99.3 % (95-100) Arterial Blood Base Excess -2.8 (-2-2) L Cristofer Test Positive White Blood Count 21.0 K/UL (4.8-10.8) #H Red Blood Count 2.92 M/UL (4.70-6.10) L Hemoglobin 8.4 G/DL (14.2-18.0) L Hematocrit 25.5 % (42.0-52.0) L Mean Corpuscular Volume 88 FL (80-99) Mean Corpuscular Hemoglobin 28.8 PG (27.0-31.0) Mean Corpuscular Hemoglobin Concent 32.9 G/DL (32.0-36.0) Red Cell Distribution Width 15.9 % (11.6-14.8) H Platelet Count 187 K/UL (150-450) Mean Platelet Volume 4.9 FL (6.5-10.1) L Neutrophils (%) (Auto) % (45.0-75.0) Lymphocytes (%) (Auto) % (20.0-45.0) Monocytes (%) (Auto) % (1.0-10.0) Eosinophils (%) (Auto) % (0.0-3.0) Basophils (%) (Auto) % (0.0-2.0) D-Dimer 3.16 mg/L FEU (0.00-0.49) H Sodium Level 140 MMOL/L (136-145) Potassium Level 3.7 MMOL/L (3.5-5.1) Chloride Level 106 MMOL/L (98-107) Carbon Dioxide Level 25 MMOL/L (21-32) Anion Gap 9 mmol/L (5-15) Blood Urea Nitrogen 18 mg/dL (7-18) Creatinine 1.2 MG/DL (0.55-1.30) Estimat Glomerular Filtration Rate mL/min (>60) Glucose Level 111 MG/DL (74-106) H Lactic Acid Level 3.00 mmol/L (0.4-2.0) H 5.10 mmol/L (0.66-2.22) H Calcium Level 8.8 MG/DL (8.5-10.1) Phosphorus Level 3.3 MG/DL (2.5-4.9) Magnesium Level 1.5 MG/DL (1.8-2.4) L Pro-B-Type Natriuretic Peptide 9191 pg/mL (0-125) H Test 03/27/19 03:50 03/27/19 07:15 03/27/19 08:30 03/27/19 15:45 White Blood Count 21.4 K/UL (4.8-10.8) H Red Blood Count 2.93 M/UL (4.70-6.10) L Hemoglobin 8.3 G/DL (14.2-18.0) L Hematocrit 26.3 % (42.0-52.0) L Mean Corpuscular Volume 90 FL (80-99) Mean Corpuscular Hemoglobin 28.3 PG (27.0-31.0) Mean Corpuscular Hemoglobin Concent 31.5 G/DL (32.0-36.0) L Red Cell Distribution Width 16.6 % (11.6-14.8) H Platelet Count 203 K/UL (150-450) Mean Platelet Volume 5.4 FL (6.5-10.1) L Neutrophils (%) (Auto) % (45.0-75.0) Lymphocytes (%) (Auto) % (20.0-45.0) Monocytes (%) (Auto) % (1.0-10.0) Eosinophils (%) (Auto) % (0.0-3.0) Basophils (%) (Auto) % (0.0-2.0) Differential Total Cells Counted 100 Neutrophils % (Manual) 92 % (45-75) H Lymphocytes % (Manual) 5 % (20-45) L Monocytes % (Manual) 0 % (1-10) L Eosinophils % (Manual) 0 % (0-3) Basophils % (Manual) 0 % (0-2) Band Neutrophils 3 % (0-8) Platelet Estimate Adequate Platelet Morphology Normal Hypochromasia 1+ Anisocytosis 1+ Sodium Level 139 MMOL/L (136-145) Potassium Level 3.9 MMOL/L (3.5-5.1) Chloride Level 105 MMOL/L (98-107) Carbon Dioxide Level 23 MMOL/L (21-32) Anion Gap 11 mmol/L (5-15) Blood Urea Nitrogen 18 mg/dL (7-18) Creatinine 1.3 MG/DL (0.55-1.30) Estimat Glomerular Filtration Rate mL/min (>60) Glucose Level 126 MG/DL (74-106) H Calcium Level 8.5 MG/DL (8.5-10.1) Troponin I 0.048 ng/mL (0.000-0.056) Lactic Acid Level 2.70 mmol/L (0.4-2.0) H 2.60 mmol/L (0.66-2.22) H 3.60 mmol/L (0.4-2.0) H Thyroid Stimulating Hormone (TSH) 22.269 uiU/mL (0.358-3.740) Cortisol Pending Height (Feet): 6 Height (Inches): 2.00 Weight (Pounds): 173 Medications Current Medications Medications (Trade) Dose Ordered Sig/Vaughn Route PRN Reason Start Time Stop Time Status Last Admin Dose Admin Acetaminophen (Tylenol) 650 mg Q4H PRN ORAL Mild Pain/Temp > 100.5 03/26/19 17:30 04/25/19 17:29 Albuterol/ Ipratropium (Albuterol/ Ipratropium) 3 ml Q4H PRN HHN Shortness of Breath 03/26/19 17:30 03/31/19 17:29 Ascorbic Acid (Vitamin C) 250 mg TWICE A DAY ORAL 03/27/19 18:00 04/26/19 17:59 03/27/19 18:14 Chlorhexidine Gluconate (Michelle-Hex 2%) 1 applic DAILY@1999 TOPIC 03/27/19 20:00 04/26/19 19:59 Dextrose/Sodium Chloride 1,000 ml @ 100 mls/hr Q10H IV 03/27/19 16:30 04/26/19 16:29 03/27/19 16:53 Heparin Sodium (Porcine) (Heparin 5000 units/ml) 5,000 units EVERY 12 HOURS SUBQ 03/27/19 09:00 04/26/19 08:59 03/27/19 09:53 Norepinephrine Bitartrate 8 mg/ Dextrose 500 ml @ 0 mls/hr Q24H IV 03/27/19 07:00 04/26/19 06:59 03/27/19 16:23 Pantoprazole (Protonix) 40 mg DAILY IVP 03/27/19 09:00 04/26/19 08:59 03/27/19 09:53 Phenylephrine HCl 50 mg/Dextrose 250 ml @ 0 mls/hr Q24H IV 03/27/19 01:45 04/26/19 01:44 03/27/19 13:43 Piperacillin Sod/ Tazobactam Sod 3.375 gm/Sodium Chloride 110 ml @ 27.5 mls/hr EVERY 8 HOURS IVPB 03/26/19 22:00 03/31/19 21:59 03/27/19 13:43 Sodium Hypochlorite (Dakin's Quarter Strength) 1 applic DAILY TOPIC 03/28/19 00:00 04/27/19 00:00 Vancomycin HCl (Vanco rx to dose) 1 ea DAILY PRN MISC Per rx protocol 03/27/19 16:00 04/26/19 15:59 Vancomycin HCl 1 gm/Dextrose 275 ml @ 183.708 mls/hr Q12H IVPB 03/28/19 05:00 04/02/19 04:59 Vancomycin HCl/ Dextrose 275 ml @ 137.5 mls/ hr ONCE ONCE IVPB 03/27/19 17:00 03/27/19 18:59 03/27/19 17:24 Zinc Sulfate (Zinc Sulfate) 220 mg DAILY ORAL 03/28/19 09:00 04/27/19 08:59 Assessment/Plan Assessment/Plan: Hematology Consultation Chief Complaint: Altered Mental Status REQ : Samuel Mims DOS:03/27/19 RFC: Dvt, lung cancer eval ID 89-year-old male, well known to me, brought EMS after increase sob, hypoxia, pna. Patient was noted to have increased confusion as well as lethargy acute onset from his retirement. Patient full code. Patient had been noted to be short of breath and hypotensive by EMS and he was started on IV fluids as well as supplemental oxygen via nonrebreather mask. In the er was intubated, and heme consulted given hx of prior lung mass. Patient had been noted to have increased in his lungs. Currently is on abx.admitted with sepsis. Coded Allergies: No Known Allergies (Unverified , 01/18/19) Past Medical History: see triage record Reviewed Nursing Documentation: PMH: Agreed; PSxH: Agreed Review of Systems: limited - by mental status PE General: severe distress, chronically Ill ENT: moist mucus membranes Neck: limited range of motion Respiratory: respiratory distress, rhonch ++ vent Cardiovascular: RRr, no mgr Gastrointestinal: normal inspection, soft Msk: normal inspection Neuro: responsive, motor weakness Psychiatric: depressed affect Skin: no rash Labs: have been reviewed Imaging: noted Assessment and Recs: # Lung mass (2.5 x 2.3 x 1.8 cm right apical masslike opacity) with smaller adjacent similar smaller opacities. Favor scarring, but the possibility of neoplasm cannot be ruled out. 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 Iron Overload --> Ferrtin 1327 continue to monitor consider chelation therapy prior to blood tx. --> on iv iron # Renal insufficiency --> as per renal recs # Respiratory failure is on vent --> sbp per pulm # Hypotension on fluids now better --> abx and pressors The timing of this note does not necessarily reflect the time of the patient was seen. GREATLY APPRECIATE CONSULTATION. Jake Womack MD Mar 27, 2019 18:26
--- NOTE | 2019-03-27 19:13 | NUR ---
HAND-OFF: Report given to CELINE Womack.
--- NOTE | 2019-03-27 19:25 | NUR ---
NURSE NOTES: Received report and pt from CELINE Brizuela. Pt's resting in bed, in no acute distress. Patient is SR- 1degree block on nurse monitoring. BP 114/49, HR 65, SpO2 99%, Resp 16. Pt's nonverbal, fatigue, orally intubated with ETT 7.5, 22LL, AC16, TV 600, FiO2 40%, Peep 5. NPO at this time. NGT inserted. Jose intact, draining cloudy yellow urine. Large sacral wound stage IV, noted and wound care already carried out. Right femoral central line intact, running Levophed at 16mcg/min, Virgil at 30mcg. D5NS at 100ml/hr. Will continue to monitor.
--- NOTE | 2019-03-27 19:51 | Cardiology Report ---
APPROVED REPORT EXAM: Two-dimensional and M-mode echocardiogram with Doppler and color Doppler. INDICATION Bradycardia M-Mode DIMENSIONS IVSd1.2 (0.7-1.1cm)Left Atrium (MM)2.8 (1.6-4.0cm) LVDd3.9 (3.5-5.6cm)Aortic Root4.3 (2.0-3.7cm) PWd1.2 (0.7-1.1cm)Aortic Cusp Exc.1.8 (1.5-2.0cm) IVSs1.7 cm LVDs2.2 (2.5-4.0cm) PWs1.0 cm Technically difficult study due to poor acoustical windows. Normal left ventricular chamber size, systolic function and wall motion to extent visualized. Left ventricular ejection fraction estimated to be 65-70%. Mild left ventricular hypertrophy. Pleural effusion present. Left atrial size at upper limits of normal. Right cardiac chamber sizes are within normal limits. Focal aortic valve sclerosis with adequate cusp excursion. Thickened mitral valve leaflets with normal excursion. Mitral annulus and aortic root calcification. Normal pulmonic valve structure. Normal tricuspid valve structure. IVC at size 2.1cm without physiologic collapse. A color flow and spectral Doppler study was performed and revealed: Mild aortic insufficiency. Trace mitral regurgitation. Mitral diastolic velocities suggest reduced left ventricular relaxation c/w mild LV diastolic dysfunction (Grade I). Trace tricuspid regurgitation. Tricuspid systolic velocities suggests peak right ventricular systolic pressure of 29 mmHg.
--- NOTE | 2019-03-27 19:55 | Cardiology Report ---
APPROVED REPORT EKG Measurement Heart [id number] Sinus rhythm with 1st degree AV block Right bundle branch block Abnormal ECG
[2019-03-27] MEDS: Dyna-Hex 2% Top Sol 2oz TOPIC SCH (20:27)
--- NOTE | 2019-03-27 21:00 | NUR ---
NURSE NOTES: Pt's resting in bed, in no acute distress. VS stable. Off Virgil at this time. Still having Levophed running at 14mcg/ min. HOB kept elevated, bed in low and locked position. Will continue to monitor.
--- NOTE | 2019-03-27 22:00 | NUR ---
NURSE NOTES: Pt's resting in bed, in no acute distress. VS stable. HOB kept elevated, bed in low and locked position. Will continue to monitor.
--- NOTE | 2019-03-27 22:00 | Consultation ---
DATE OF CONSULTATION: 03/27/2019 CARDIOLOGY CONSULTATION CONSULTING PHYSICIAN: Christian Vargas M.D. REFERRING PHYSICIAN: Pedrito Mims M.D. REASON FOR CONSULTATION: Supraventricular tachycardia and hypotension. HISTORY OF PRESENT ILLNESS: The patient is an 89-year-old gentleman, who initially was admitted to telemetry floor for pneumonia. The patient, however, became hypoxic and developed respiratory failure and was reevaluated by the emergency room doctor. The patient was intubated and brought to the intensive care unit. The patient was also hypotensive and started on Levophed. The patient had underlying sinus rhythm with right bundle-branch block and left anterior fascicular block and has had runs of supraventricular tachycardia without any discrete P-waves. Cardiac electrophysiology consultation was obtained for further evaluation and management. REVIEW OF SYSTEMS: Cannot be obtained. PAST MEDICAL HISTORY: Includes history of hypertension. MEDICATIONS: From retirement include lisinopril, metoprolol, midodrine, and Xarelto. PHYSICAL EXAMINATION: VITAL SIGNS: Show blood pressure of 113/55, pulse is 59, respirations 18, and he is afebrile. HEAD AND NECK: Shows he is orally intubated with NG-tube. LUNGS: Coarse rhonchi. CARDIOVASCULAR: Shows regular S1 and S2 with no gallop or murmur. ABDOMEN: Soft. EXTREMITIES: No pitting edema. DIAGNOSTIC DATA: His EKG showed a supraventricular tachycardia with no discrete P-waves suggestive of atrioventricular corrie reentrant tachycardia at the rate of 120. His EKG in sinus rhythm also showed sinus rhythm with varying AL interval, possibly sinus rhythm with completely junctional rhythm. LABORATORY AND DIAGNOSTIC DATA: Labs show white count of 21.4, hemoglobin 8.7, hematocrit 26.3, and platelet count of 203,000. Sodium is 139, potassium 3.9, BUN of 18, and creatinine 1.3. Troponin is negative x2. BNP is 9191. ASSESSMENT AND PLAN: 1. Hypotension. Likely due to septic shock. The patient is on Levophed as well as IV antibiotics. His echocardiogram showed ejection fraction of 60 to 65 percent with mild diastolic dysfunction. I will add midodrine to his medical regimen and try to taper off Levophed. 2. Respiratory failure, likely due to pneumonia. The patient is on broad-spectrum IV antibiotics. 3. Mild diastolic dysfunction with elevated BNP. I will discontinue IV Lasix as the patient was on the ventilator and had normal ejection fraction and hypotension. 4. History of PE. The patient was on Xarelto 50 mg daily, but currently D-dimer is relatively low. His is only mildly elevated at 3.16. 5. UTI. Thank you very much for allowing me to participate in the care of this patient. Please do not hesitate to contact me for any questions regarding my evaluation. Christian Vargas M.D. DR: MARIA A JOB#: [id number] CC:
[2019-03-27] MEDS: Dakin's 0.125% Soln (Quarter Strength) 16oz TOPIC SCH (23:42)
[2019-03-28] VITALS (59 sets, daily range): BP systolic 91–153; BP diastolic 38–87
--- NOTE | 2019-03-28 | NUR ---
NURSE NOTES: Pt's resting in bed, in no acute distress. VS stable. HOB kept elevated, bed in low and locked position. Will continue to monitor.
[2019-03-28] MEDS: Norepinephrine Bitartrate 8 MG in D5W 500ml 492 ML IV SCH ×2 (00:34→09:30)
--- NOTE | 2019-03-28 02:00 | NUR ---
NURSE NOTES: Pt's resting in bed, in no acute distress. VS stable. HOB kept elevated, bed in low and locked position. Will continue to monitor.
[2019-03-28] MEDS: D5NS 1,000 ML IV SCH ×3 (02:30→15:07)
--- NOTE | 2019-03-28 02:45 | Progress Note ---
DATE: 03/27/2019 SUBJECTIVE: This is an elderly male who came in yesterday last night for having acute shortness of breath, hypoxia, and congestion. The patient was found to have pneumonia as well as CHF. The patient was last night and brought here as an emergency and was brought to the ICU where the patient is on high oxygen. Pulmonary consult was obtained and also has . His current blood cultures are showing gram-positive cocci in clusters with WBC of 21,000. BUN and creatinine slightly high. The patient is nonverbal and combative. OBJECTIVE: VITAL SIGNS: Blood pressure is 92/40, pulse 110 to 130, respirations 18 to 30. Temperature, no fever. SKIN: Poor skin turgor. HEENT: NAD . NECK: Supple. CHEST: Bilaterally decreased breath sounds. Scattered crackles. CARDIOVASCULAR: Regular rhythm. Tachycardia. ABDOMEN: Soft. Positive bowel sounds. Nontender. EXTREMITIES: Trace edema. GENITOURINARY: Deferred. ASSESSMENT: 1. Septic shock. 2. Aspiration pneumonia. 3. CHF. 4. Cardiac arrhythmia. 5. Electrolyte abnormalities. PLAN: We will replace the magnesium. Continue Lasix. Continue IV antibiotics and bronchodilator treatment. Pulmonary and ID as well as Cardiology on case. Pulmonary doctor Dr. Lemon for ID. Discussed with Dr. Lemon. Cardiology, Dr. Vargas. The patient is critically sick and the patient needs to be in ICU for further assessment. Pedrito Mims M.D. DR: Aileen JOB#: [id number] CC:
--- NOTE | 2019-03-28 04:00 | NUR ---
NURSE NOTES: Pt's resting in bed, in no acute distress. VS stable. Will continue to monitor.
[2019-03-28 04:56] LABS: HEMATOCRIT 20.9 % (42.0-52.0); MEAN CORPUSCULAR VOLUME 88 FL (80-99); PLATELET COUNT 119 K/UL (150-450); RED BLOOD COUNT 2.37 M/UL (4.70-6.10); RED CELL DISTRIBUTION WIDTH 16.6 % (11.6-14.8); WHITE BLOOD COUNT 12.8 K/UL (4.8-10.8)
[2019-03-28 05:16] LABS: INR 1.2 (0.9-1.1)
[2019-03-28 05:26] LABS: ALANINE AMINOTRANSFERASE 7 U/L (12-78); ALBUMIN/GLOBULIN RATIO 0.2 (1.0-2.7); ALKALINE PHOSPHATASE 76 U/L (46-116); ANION GAP 9 mmol/L (5-15); ASPARTATE AMINO TRANSFERASE 21 U/L (15-37); BILIRUBIN,TOTAL 0.4 MG/DL (0.2-1.0); BLOOD UREA NITROGEN 18 mg/dL (7-18); CALCIUM 8.3 MG/DL (8.5-10.1); CARBON DIOXIDE 24 MMOL/L (21-32); CHLORIDE 106 MMOL/L (98-107); CREATININE 1.4 MG/DL (0.55-1.30); POTASSIUM 3.6 MMOL/L (3.5-5.1); SODIUM 139 MMOL/L (136-145)
[2019-03-28] MEDS: Piperacillin/Tazobactam 3.375 GM in NS 110 ML IVPB SCH ×3 (05:29→22:09)
[2019-03-28] MEDS: Vancomycin 1gm/D5W 275ml IVPB SCH ×4 (05:29→17:54)
[2019-03-28 05:47] LABS: HEMOGLOBIN 6.7 G/DL (14.2-18.0)
--- NOTE | 2019-03-28 06:00 | NUR ---
NURSE NOTES: Pt's resting in bed, in no acute distress. VS stable. Will continue to monitor.
--- NOTE | 2019-03-28 07:00 | NUR ---
RESPIRATORY NOTES: Received Patient on Vent settings ACVC 16, VT 600, Fio2 40%, PEEP +5. Patient currently intubated with 7.5 ETT at 24 cm lip line, secured with anchorfast. Patient awake and alert. Breath sounds are bilateral diminished throughout both lung teague. Suctioned small amount of clear white secretions Q2 and PRN. Vent plugged into red outlet. Alarms are on and audible. Will continue to monitor throughout the day.
--- NOTE | 2019-03-28 07:24 | NUR ---
HAND-OFF: Report given to CELINE Prakash.
--- NOTE | 2019-03-28 07:25 | NUR ---
NURSE NOTES: Report received from Vu Ozuna RN. Pt is awake and alert and able to answer for simple questions. Arms are strong and pt is impulsive trying to reach ETT at times. On bilateral soft wrist restraints. Sinus rhythm with 1 AVB and BBB on ekg monitor tech. ETT 7.5/22cm at lip line. AC 16, TV 600, FiO2 40%, P 5. Right NGT in place. Kept NPO as per order. Jose in place draining to gravity. Right femoral TLC patent and asymptomatic. On Levophed at 8mcg/min and D5NS at 100cc/hr. Bed in lowest position. Side rails up x3. Will resume plan of care. Addendum: 03/28/19 at 1950 by ELDER VALENTE RN RN NURSE NOTES: Report received from Vu Ozuna RN. Pt is awake and alert and able to answer for simple questions. Arms are strong and pt is impulsive trying to reach ETT at times. On bilateral soft wrist restraints. Sinus rhythm with 1 AVB and BBB on ekg monitor tech. ETT 7.5/24cm at lip line. AC 16, TV 600, FiO2 40%, P 5. Right NGT in place. Kept NPO as per order. Jose in place draining to gravity. Right femoral TLC patent and asymptomatic. On Levophed at 8mcg/min and D5NS at 100cc/hr. Bed in lowest position. Side rails up x3. Will resume plan of care.
[2019-03-28 07:43] LABS: HEMATOCRIT 20.8 % (42.0-52.0); MEAN CORPUSCULAR VOLUME 89 FL (80-99); PLATELET COUNT 124 K/UL (150-450); RED BLOOD COUNT 2.34 M/UL (4.70-6.10); RED CELL DISTRIBUTION WIDTH 16.5 % (11.6-14.8); WHITE BLOOD COUNT 12.1 K/UL (4.8-10.8)
[2019-03-28 07:44] LABS: HEMOGLOBIN 6.5 G/DL (14.2-18.0)
--- NOTE | 2019-03-28 07:50 | NUR ---
RESPIRATORY NOTES: Weaning trial passed. Placed patient of PS+8 PEEP +5 FIO2 45%. Patient tolerating well. Will continue to monitor. Addendum: 03/28/19 at 0758 by ZEE BRIONES RT FIO2 is 40%
--- NOTE | 2019-03-28 07:50 | NUR ---
NURSE NOTES: Weaning started with CPAP, PS 8 by RT. No acute respiratory distress noted. Will continue to monitor.
[2019-03-28] MEDS: Pantoprazole Inj IVP SCH (08:49)
[2019-03-28] MEDS: Heparin 5000 units/ml inj SUBQ SCH ×2 (08:49→20:12)
[2019-03-28] MEDS: Zinc Sulfate 220mg cap ORAL SCH (08:49)
[2019-03-28] MEDS: Ascorbic Acid 500mg tab ORAL SCH ×2 (08:49→17:54)
--- NOTE | 2019-03-28 08:50 | NUR ---
NURSE NOTES: Dr Mims here to see the patient. Updated him with pt's current condition. Orders received, noted, and carried out.
--- NOTE | 2019-03-28 10:00 | Diagnostic Imaging Report ---
Indication: Cough Technique: One view of the chest Comparison: 03/26/2019 Findings: Interim placement of a nasogastric tube, tip of which appears to be in satisfactory position in the gastric fundus. Stable satisfactory position of endotracheal tube. Irregular opacity in the right upper lobe persists, may be slightly less conspicuous than on the previous exam. Other parenchymal opacities bilaterally, particularly in the left upper lobe and right lung base, appear improved. There is persistent retrocardiac disease. Heart size is normal. Impression: Over 2 days, interim improvement of bilateral infiltrates versus edema. There are persistent parenchymal opacities in the retrocardiac region and right upper lobe; the latter appears somewhat masslike and should be followed to resolution
--- NOTE | 2019-03-28 10:55 | NUR ---
RESPIRATORY NOTES: Weaning stopped, placed back onto previous ACVC settings. Tolerated well. ABGs drawn. RN aware.
--- NOTE | 2019-03-28 11:05 | Cardiology Report ---
APPROVED REPORT EKG Measurement Heart [id number] ID [id number] Sinus rhythm with 1st degree AV block with occasional premature ventricular complexes Low voltage QRS Cannot rule out Anteroseptal infarct, age undetermined Abnormal ECG
--- NOTE | 2019-03-28 11:13 | NUR ---
[facility] AID COORDINATORBRICK OFF BEARER SI: HYPOXIA, PNEUMONIA, CHF T. 98.9 HR 66 RR 16 B/P 108/46 MECH-VENT 40 SAT 100% HGB 6.5 ABG PCO2 33.9 ABG PO2 160.7 CREATININE 1.4 GLUCOSE 113 CALCIUM 8.3 ALT 7 CRPROTEIN 27.4 TOTAL PROTEIN 6.1 ALBUMIN 1.0 PT 12.6 INR 1.2 APTT 45 IS: NOREPINEPHRINE IV PROTONIX IVP VITAMIN C ORAL ZINC SULFATE ORAL ZOSYN IVPB VANCOMYCIN IVPB D5NS IV DAKINS TOPIC DYNAHEX TOPIC PHENYLEPHRINE IV HEPARIN SUBQ ICU STATUS
--- NOTE | 2019-03-28 12:00 | NUR ---
NURSE NOTES: pRBC transfusion started. Co-signed with CELINE Baron. and daughter at bedside. Pre transfusion temp 97.5, HR 63, BP 92/36. Will continue to monitor.
--- NOTE | 2019-03-28 14:30 | Consultation ---
DATE OF CONSULTATION: 03/28/2019 INFECTIOUS DISEASES CONSULTATION CONSULTING PHYSICIAN: Ambrocio Lemon M.D. REFERRING PHYSICIAN: Elmo Mims M.D. REASON FOR CONSULTATION: Sepsis. HISTORY OF PRESENTING ILLNESS: This is an 89-year-old gentleman with history of hypertension, congestive heart failure, dementia, and depression, who came into the emergency room with shortness of breath and congestion. He was found to be hypoxic. He has been intubated and admitted to the ICU. An Infectious Diseases consultation has been obtained for sepsis. PAST MEDICAL HISTORY: 1. History of hypertension. 2. Congestive heart failure. 3. Dementia. 4. Depression. 5. Weight loss. SOCIAL HISTORY: Unknown. FAMILY HISTORY: Unknown. REVIEW OF SYSTEMS: Unable to obtain currently. MEDICATIONS: As an inpatient, he is on zinc sulfate, IV vancomycin, chlorhexidine gluconate, ascorbic acid, subcutaneous heparin, Protonix, Levophed, , Zosyn, Tylenol, and albuterol. ALLERGIES: No known drug allergies. PHYSICAL EXAMINATION: VITAL SIGNS: Temperature of 98.1, T-max of 98.9, pulse of 61, respiratory rate 18, blood pressure 112/45, and O2 saturation of 100%. HEENT: Pupils equally reactive to light and accommodation. The patient is intubated. NECK: Supple. No adenopathy. No JVD. CARDIOVASCULAR: Regular rate and rhythm. No murmurs. LUNGS: Clear to auscultation bilaterally. No crackles. No wheezes. ABDOMEN: Soft and nontender. No organomegaly. EXTREMITIES: No cyanosis, no clubbing. Edema noted bilaterally. LABORATORY AND DIAGNOSTIC DATA: White count of 21 on 03/27/2019, white count today of 12.1, hemoglobin 6.5, hematocrit 20.8, MCV 89, platelet count of 124 with neutrophils of 81%. Sodium 139, potassium 3.6, chloride 106, bicarb 24, BUN 18, creatinine 1.4, glucose 113, calcium 8.3. Total bilirubin 0.4. AST 21, ALT 7, alkaline phosphatase 76. C-reactive protein 27. Total protein 6.1. Albumin 1. UA showing 5 to 10 white cells. Blood cultures from 03/26/2019 growing Staph aureus. Chest x-ray showing bilateral infiltrates versus edema distribution, parenchymal opacities in the retrocardiac region and right upper lobe. A 2D echocardiogram showing mild left ventricular hypertrophy. Mild aortic insufficiency. Focal aortic valve sclerosis. x-ray showing right upper lobe infiltrate. ASSESSMENT: This is an 89-year-old gentleman with history of dementia, hypertension, who comes in with congestion and shortness of breath and was found to have. 1. Staph aureus sepsis would like to rule out endocarditis as a possibility. 2. Possible aspiration pneumonia. 3. Leukocytosis is improving. 4. Respiratory failure. PLAN: 1. Consider transesophageal echocardiogram. 2. Continue vancomycin and Zosyn. 3. We will order sputum for Gram stain and culture. 4. We will follow up cultures and adjust antibiotics accordingly. I would like to thank, Dr. Mims, for this consultation. Ambrocio Lemon M.D. DR: BEKAH JOB#: [id number] CC: Elmo Mims M.D.
--- NOTE | 2019-03-28 14:33 | Hematology/Onc Progress Note ---
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 Favor scarring, but the possibility of neoplasm cannot be ruled out. 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, r/o mets --> patient is on pressors so hold off on diagnosis until more stable --> at some point will need a tissue diagnosis, as well as further w/u --> given advanced age, hold off on any extensive immediate care --> pulm has been consulted as well, before was on xarelto # DVT + Pulmonary embolism history could be related to mass/malignancy * HYPERCOAGULABLE DISORDER* --> on xarelto, okay to dc to snf on this --> Once ng placed, okay to restart xarelto --> heparin sq for dvt ppx # Leukocytosis is 2/2 septic shock with uti --> has been started on abx (vanc/zosyn) --> further w/u for altered mental status --> wbc 14-->19.7-->21 # Iron Overload --> Ferrtin 1327 continue to monitor consider chelation therapy prior to blood tx. --> on iv iron # Renal insufficiency --> as per renal recs # Respiratory failure is on vent --> sbp per pulm # Hypotension on fluids now better --> abx and pressors # DVT ppx --> heparin sq The timing of this note does not necessarily reflect the time of the patient was seen. GREATLY APPRECIATE CONSULTATION. Subjective Constitutional: Denies: no symptoms, chills, fever, malaise, weakness, other HEENT: Denies: no symptoms, eye pain, blurred vision, tearing, double vision, ear pain, ear discharge, nose pain, nose congestion, throat pain, throat swelling, mouth pain, mouth swelling, other Cardiovascular: Denies: no symptoms, chest pain, edema, irregular heart rate, lightheadedness, palpitations, syncope, other Respiratory: Denies: no symptoms, cough, shortness of breath, SOB with excertion, SOB at rest, sputum, wheezing, other Genitourinary: Denies: no symptoms, burning, discharge, frequency, flank pain, hematuria, incontinence, pain, urgency, other Endocrine: Denies: no symptoms, excessive sweating, flushing, intolerance to cold, intolerance to heat, increased hunger, increased thirst, increased urine, unexplained weight gain, unexplained weight loss, other Hematologic/Lymphatic: Denies: no symptoms, anemia, easy bleeding, easy bruising, adenopathy, other Allergies: Coded Allergies: No Known Allergies (Unverified , 01/18/19) Subjective 03/28: labs have been reviewed, hgb is less than 7, hgb 6.5, and prbc that has been ordered Objective Objective Current Medications Medications (Trade) Dose Ordered Sig/Vaughn Route PRN Reason Start Time Stop Time Status Last Admin Dose Admin Acetaminophen (Tylenol) 650 mg Q4H PRN ORAL Mild Pain/Temp > 100.5 03/26/19 17:30 04/25/19 17:29 Albuterol/ Ipratropium (Albuterol/ Ipratropium) 3 ml Q4H PRN HHN Shortness of Breath 03/26/19 17:30 03/31/19 17:29 Ascorbic Acid (Vitamin C) 250 mg TWICE A DAY ORAL 03/27/19 18:00 04/26/19 17:59 03/28/19 08:49 Chlorhexidine Gluconate (Michelle-Hex 2%) 1 applic DAILY@1999 TOPIC 03/27/19 20:00 04/26/19 19:59 03/27/19 20:27 Dextrose/Sodium Chloride 1,000 ml @ 100 mls/hr Q10H IV 03/27/19 16:30 04/26/19 16:29 03/28/19 04:57 Heparin Sodium (Porcine) (Heparin 5000 units/ml) 5,000 units EVERY 12 HOURS SUBQ 03/27/19 09:00 04/26/19 08:59 03/27/19 20:29 Norepinephrine Bitartrate 8 mg/ Dextrose 500 ml @ 0 mls/hr Q24H IV 03/27/19 07:00 04/26/19 06:59 03/28/19 09:30 Pantoprazole (Protonix) 40 mg DAILY IVP 03/27/19 09:00 04/26/19 08:59 03/28/19 08:49 Phenylephrine HCl 50 mg/Dextrose 250 ml @ 0 mls/hr Q24H IV 03/27/19 01:45 04/26/19 01:44 03/27/19 13:43 Piperacillin Sod/ Tazobactam Sod 3.375 gm/Sodium Chloride 110 ml @ 27.5 mls/hr EVERY 8 HOURS IVPB 03/26/19 22:00 03/31/19 21:59 03/28/19 05:29 Sodium Hypochlorite (Dakin's Quarter Strength) 1 applic DAILY TOPIC 03/28/19 00:00 04/27/19 00:00 03/27/19 23:42 Vancomycin HCl (Vanco rx to dose) 1 ea DAILY PRN MISC Per rx protocol 03/27/19 16:00 04/26/19 15:59 Vancomycin HCl 1 gm/Dextrose 275 ml @ 183.708 mls/hr Q12H IVPB 03/28/19 05:00 04/02/19 04:59 03/28/19 05:29 Zinc Sulfate (Zinc Sulfate) 220 mg DAILY ORAL 03/28/19 09:00 04/27/19 08:59 03/28/19 08:49 Last 24 Hour Vital Signs Date Time Temp Pulse Resp B/P (MAP) Pulse Ox O2 Delivery O2 Flow Rate FiO2 03/28/19 14:00 110/57 03/28/19 14:00 58 16 110/57 (74) 100 03/28/19 13:30 85 19 129/69 (89) 100 03/28/19 13:29 60 16 40 03/28/19 13:00 57 16 114/45 (68) 100 03/28/19 13:00 97/82 03/28/19 12:00 Mechanical Ventilator 03/28/19 12:00 103/57 03/28/19 12:00 40 03/28/19 12:00 97.5 61 16 103/57 (72) 100 03/28/19 11:25 59 03/28/19 11:00 117/47 03/28/19 11:00 61 16 117/47 (70) 100 03/28/19 10:54 57 16 40 03/28/19 10:00 112/45 03/28/19 10:00 61 13 112/45 (67) 100 03/28/19 09:30 59 12 91/38 (55) 100 03/28/19 09:30 120/45 03/28/19 09:30 63 12 91/38 (55) 100 03/28/19 09:04 63 13 40 40 03/28/19 09:03 100 03/28/19 09:00 61 11 120/45 (70) 100 03/28/19 09:00 123/47 03/28/19 09:00 64 12 123/47 (72) 100 03/28/19 08:30 98.1 60 13 116/49 (71) 100 03/28/19 08:30 63 12 117/58 (77) 100 03/28/19 08:00 40 03/28/19 08:00 66 16 116/42 (66) 100 03/28/19 08:00 61 03/28/19 08:00 116/42 03/28/19 08:00 Mechanical Ventilator 03/28/19 08:00 98.9 60 12 108/46 (66) 100 03/28/19 07:46 77 14 40 40 03/28/19 07:30 57 16 113/50 (71) 100 03/28/19 07:30 65 13 119/48 (71) 100 03/28/19 07:00 102/43 03/28/19 07:00 98.9 61 16 129/60 (83) 100 03/28/19 06:30 66 16 116/42 (66) 100 03/28/19 06:15 63 16 108/42 (64) 100 03/28/19 06:00 61 16 98/42 (60) 100 03/28/19 06:00 108/42 03/28/19 05:53 59 16 112/42 (65) 100 03/28/19 05:45 65 17 153/51 (85) 03/28/19 05:30 68 16 103/45 (64) 100 03/28/19 05:30 62 16 40 03/28/19 05:15 67 17 111/46 (67) 03/28/19 05:07 63 16 113/45 (67) 100 03/28/19 05:00 106 18 126/65 (85) 87 03/28/19 05:00 113/45 03/28/19 04:45 67 17 115/50 (71) 100 03/28/19 04:30 105 17 124/63 (83) 100 03/28/19 04:15 87 14 150/87 (108) 100 03/28/19 04:00 Mechanical Ventilator 03/28/19 04:00 40 03/28/19 04:00 150/87 03/28/19 04:00 60 16 129/49 (75) 100 03/28/19 04:00 62 03/28/19 03:45 64 17 123/45 (71) 100 03/28/19 03:30 60 15 121/47 (71) 100 03/28/19 03:15 62 16 120/47 (71) 100 03/28/19 03:10 67 16 40 03/28/19 03:00 59 16 119/44 (69) 100 03/28/19 03:00 120/47 03/28/19 02:45 61 16 115/44 (67) 100 03/28/19 02:30 65 17 114/52 (72) 100 03/28/19 02:15 62 16 113/46 (68) 100 03/28/19 02:00 118/47 03/28/19 02:00 66 18 118/47 (70) 100 03/28/19 01:45 61 16 118/41 (66) 100 03/28/19 01:30 62 16 40 03/28/19 01:30 61 16 117/47 (70) 100 03/28/19 01:15 65 17 115/46 (69) 100 03/28/19 01:00 62 16 112/50 (70) 100 03/28/19 01:00 115/46 03/28/19 00:45 66 16 118/43 (68) 100 03/28/19 00:34 106/44 03/28/19 00:30 64 16 97/52 (67) 100 03/28/19 00:15 60 16 106/44 (64) 100 03/28/19 00:00 64 17 103/52 (69) 100 03/28/19 00:00 40 03/28/19 00:00 64 03/28/19 00:00 106/44 03/28/19 00:00 Mechanical Ventilator 03/27/19 23:45 63 16 90/36 (54) 100 03/27/19 23:30 65 17 114/62 (79) 100 03/27/19 23:30 66 16 40 03/27/19 23:15 64 16 108/45 (66) 100 03/27/19 23:00 115/44 03/27/19 23:00 66 17 115/44 (67) 100 03/27/19 22:45 64 17 108/43 (64) 100 03/27/19 22:30 57 14 97/39 (58) 100 03/27/19 22:15 64 16 112/47 (68) 100 03/27/19 22:00 63 16 108/48 (68) 100 03/27/19 22:00 112/47 03/27/19 21:45 67 17 103/44 (63) 100 03/27/19 21:30 61 16 103/44 (63) 100 03/27/19 21:20 61 16 40 03/27/19 21:15 61 16 113/45 (67) 100 03/27/19 21:00 66 16 117/49 (71) 100 03/27/19 21:00 113/45 03/27/19 20:45 62 16 113/46 (68) 100 03/27/19 20:30 67 16 104/43 (63) 100 03/27/19 20:15 62 16 129/56 (80) 100 03/27/19 20:00 40 03/27/19 20:00 60 03/27/19 20:00 129/56 03/27/19 20:00 60 16 119/47 (71) 100 03/27/19 20:00 Mechanical Ventilator 03/27/19 19:30 59 16 40 03/27/19 19:00 146/44 03/27/19 19:00 65 16 131/51 (77) 100 03/27/19 18:30 153/49 03/27/19 18:00 147/52 03/27/19 18:00 65 16 155/54 (87) 100 03/27/19 17:30 65 16 144/51 (82) 100 03/27/19 17:15 69 17 88/53 (65) 100 03/27/19 17:00 72 17 40 03/27/19 17:00 116/61 03/27/19 17:00 81 16 137/45 (75) 100 03/27/19 16:45 66 16 145/51 (82) 100 03/27/19 16:45 74 16 116/61 (79) 100 03/27/19 16:30 109 16 104/86 (92) 100 03/27/19 16:23 148/52 03/27/19 16:15 65 16 134/55 (81) 100 03/27/19 16:00 40 03/27/19 16:00 64 03/27/19 16:00 148/52 03/27/19 16:00 97.1 66 16 148/62 (90) 100 03/27/19 16:00 Mechanical Ventilator 03/27/19 15:45 66 16 145/51 (82) 100 03/27/19 15:30 77 16 126/50 (75) 100 03/27/19 15:15 65 16 86/48 (61) 100 03/27/19 15:07 59 16 40 03/27/19 15:00 121 16 136/49 (78) 100 03/27/19 14:45 109 18 136/49 (78) 100 03/27/19 14:30 119 24 107/41 (63) 100 03/27/19 14:00 71 16 113/55 (74) 100 03/27/19 13:45 91 16 67/53 (58) 100 03/27/19 13:43 66 141/57 03/27/19 13:30 69 16 69/48 (55) 100 03/27/19 13:20 71 16 40 03/27/19 13:15 116 16 149/62 (91) 100 03/27/19 13:00 68 16 147/64 (91) 100 03/27/19 12:45 69 16 116/64 (81) 100 03/27/19 12:30 68 15 153/53 (86) 100 03/27/19 12:15 71 14 134/48 (76) 100 03/27/19 12:00 40 03/27/19 12:00 Mechanical Ventilator 03/27/19 12:00 139/55 03/27/19 12:00 74 03/27/19 12:00 99.2 70 17 139/55 (83) 100 03/27/19 11:45 102 17 137/53 (81) 100 03/27/19 11:30 70 17 153/56 (88) 100 03/27/19 11:15 111 18 78/49 (59) 100 03/27/19 11:00 76 17 108/57 (74) 100 03/27/19 11:00 108/57 03/27/19 10:59 72 16 40 03/27/19 10:45 76 17 108/57 (74) 100 03/27/19 10:15 74 16 126/57 (80) 100 03/27/19 10:00 91 16 112/51 (71) 100 03/27/19 10:00 112/51 03/27/19 09:45 91 16 112/51 (71) 100 03/27/19 09:26 74 16 40 03/27/19 09:00 121/78 03/27/19 09:00 100 17 91/51 (64) 100 03/27/19 08:45 100 17 91/51 (64) 100 03/27/19 08:30 87 17 96/72 (80) 100 03/27/19 08:15 114 17 139/55 (83) 100 03/27/19 08:00 97 17 127/51 (76) 100 03/27/19 08:00 84 03/27/19 08:00 Mechanical Ventilator 03/27/19 08:00 40 03/27/19 07:59 81/63 03/27/19 07:59 70 81/56 03/27/19 07:45 110 17 122/63 (82) 100 03/27/19 07:30 99.9 119 17 80/50 (60) 100 03/27/19 07:15 107 17 113/62 (79) 100 03/27/19 07:05 70 16 40 03/27/19 07:00 81/56 03/27/19 07:00 81/56 03/27/19 07:00 81/56 03/27/19 07:00 81/56 03/27/19 07:00 81/56 03/27/19 07:00 81/56 03/27/19 07:00 81/56 03/27/19 07:00 81/56 03/27/19 07:00 81/56 03/27/19 07:00 81/56 03/27/19 07:00 81/56 03/27/19 07:00 98.8 118 17 81/56 (64) 100 03/27/19 06:30 97 17 96/59 (71) 100 03/27/19 06:15 122 17 84/55 (65) 100 03/27/19 06:06 115 16 104/59 (74) 100 03/27/19 06:00 104/59 03/27/19 06:00 113 17 110/60 (77) 100 03/27/19 05:45 122 16 115/63 (80) 100 03/27/19 05:40 120 18 99/61 (74) 100 03/27/19 05:38 122 17 79/56 (64) 100 03/27/19 05:37 79/56 03/27/19 05:30 108 18 90/55 (67) 100 03/27/19 05:28 65/41 03/27/19 05:15 106 18 65/41 (49) 100 03/27/19 05:07 122 16 40 03/27/19 05:00 65/41 03/27/19 05:00 98.0 119 20 96/49 (65) 100 03/27/19 04:45 120 17 89/59 (69) 99 03/27/19 04:45 120 17 89/59 (69) 99 03/27/19 04:30 120 17 94/60 (71) 100 03/27/19 04:30 120 17 94/60 (71) 100 03/27/19 04:15 123 16 91/59 (70) 100 03/27/19 04:15 123 16 91/59 (70) 100 03/27/19 04:00 119 03/27/19 04:00 40 03/27/19 04:00 123 18 100/69 (79) 100 03/27/19 04:00 100/69 03/27/19 04:00 Mechanical Ventilator 03/27/19 04:00 123 18 100/69 (79) 100 03/27/19 03:45 120 16 94/62 (73) 100 03/27/19 03:45 120 16 94/62 (73) 100 03/27/19 03:30 122 17 89/59 (69) 100 03/27/19 03:30 94/62 03/27/19 03:30 122 17 89/59 (69) 100 03/27/19 03:25 112 18 97/62 (74) 100 03/27/19 03:15 121 18 89/59 (69) 100 03/27/19 03:15 97/62 03/27/19 03:00 121 18 86/58 (67) 100 03/27/19 03:00 86/58 03/27/19 02:59 95/59 03/27/19 02:45 121 18 95/59 (71) 100 03/27/19 02:41 123 17 40 03/27/19 02:30 121 18 125/70 (88) 100 03/27/19 02:30 125/70 03/27/19 02:15 122 18 99/61 (74) 100 03/27/19 02:00 122 18 124/95 (105) 100 03/27/19 02:00 124/95 03/27/19 01:56 121 88/52 03/27/19 01:45 122 19 68/48 (55) 100 03/27/19 01:30 119 17 88/52 (64) 100 03/27/19 01:30 120 17 50 03/27/19 01:30 88/52 03/27/19 01:15 118 17 68/48 (55) 100 03/27/19 01:00 63/52 03/27/19 01:00 119 17 63/52 (56) 100 03/27/19 00:45 119 17 89/50 (63) 100 03/27/19 00:30 118 17 74/50 (58) 100 03/27/19 00:25 73/53 03/27/19 00:15 118 17 74/50 (58) 100 03/27/19 00:00 Mechanical Ventilator 03/27/19 00:00 118 17 74/50 (58) 100 03/27/19 00:00 74/50 03/27/19 00:00 97 03/27/19 00:00 40 03/26/19 23:45 117 16 53/41 (45) 100 03/26/19 23:30 110 16 42/24 (30) 100 03/26/19 23:17 115 18 50 03/26/19 23:15 111 16 79/48 (58) 100 03/26/19 23:00 116 16 130/90 (103) 100 03/26/19 22:30 81/56 03/26/19 22:30 111 16 81/56 (64) 100 03/26/19 22:15 75/47 03/26/19 22:01 66/35 03/26/19 22:00 89 16 97/61 (73) 100 03/26/19 22:00 97/61 03/26/19 21:30 65 16 118/65 (82) 100 03/26/19 21:00 56 16 97/57 (70) 100 03/26/19 21:00 97/57 03/26/19 20:30 57 16 107/43 (64) 100 03/26/19 20:00 57 03/26/19 20:00 40 03/26/19 20:00 Mechanical Ventilator 03/26/19 20:00 110/51 03/26/19 20:00 54 16 110/51 (70) 100 03/26/19 19:30 97.7 53 16 108/49 (68) 100 03/26/19 19:14 48 16 50 03/26/19 19:14 48 16 100 Mechanical Ventilator 50 03/26/19 19:00 53 16 123/56 (78) 100 03/26/19 18:45 53 17 122/59 (80) 100 03/26/19 18:30 55 16 129/59 (82) 100 03/26/19 18:15 60 16 150/77 (101) 100 03/26/19 18:00 45 16 81/58 (66) 100 03/26/19 17:46 51 16 50 03/26/19 17:45 44 24 57/28 (38) 100 03/26/19 17:38 Mechanical Ventilator 03/26/19 17:30 49 22 74/35 (48) 98 03/26/19 17:15 48 32 66/35 (45) 95 03/26/19 16:15 97.8 78 18 120/58 94 Nasal Cannula 4.0 03/26/19 15:07 97.5 76 17 125/60 93 Nasal Cannula 4.0 Intake and Output 03/27/19 03/28/19 19:00 07:00 Intake Total 1986.0 ml 2247.812 ml Output Total 880 ml 1040 ml Balance 1106.0 ml 1207.812 ml Intake Free Water 120 ml IV Total 1866.0 ml 2247.812 ml Output Urine Total 880 ml 1040 ml Labs Test 03/26/19 11:25 03/26/19 13:50 03/26/19 15:00 03/26/19 16:48 Urine Color Anitha Urine Appearance Slightly cloudy Urine pH 5 (4.5-8.0) Urine Specific [place] 1.015 (1.005-1.035) Urine Protein 2+ (NEGATIVE) Urine Glucose (UA) Negative (NEGATIVE) Urine Ketones Negative (NEGATIVE) Urine Blood 1+ (NEGATIVE) Urine Nitrite Negative (NEGATIVE) Urine Bilirubin Negative (NEGATIVE) Urine Ictotest Negative (NEGATIVE) Urine Urobilinogen 1 MG/DL (0.0-1.0) Urine Leukocyte Esterase 1+ (NEGATIVE) Urine RBC 2-4 /HPF (0 - 0) Urine WBC 5-10 /HPF (0 - 0) Urine Squamous Epithelial Cells Moderate /LPF (NONE/OCC) Urine Amorphous Sediment Moderate /LPF (NONE) Urine Bacteria Few /HPF (NONE) White Blood Count 13.5 K/UL (4.8-10.8) Red Blood Count 3.15 M/UL (4.70-6.10) Hemoglobin 9.0 G/DL (14.2-18.0) Hematocrit 28.3 % (42.0-52.0) Mean Corpuscular Volume 90 FL (80-99) Mean Corpuscular Hemoglobin 28.5 PG (27.0-31.0) Mean Corpuscular Hemoglobin Concent 31.6 G/DL (32.0-36.0) Red Cell Distribution Width 16.7 % (11.6-14.8) Platelet Count 153 K/UL (150-450) Mean Platelet Volume 5.3 FL (6.5-10.1) Neutrophils (%) (Auto) % (45.0-75.0) Lymphocytes (%) (Auto) % (20.0-45.0) Monocytes (%) (Auto) % (1.0-10.0) Eosinophils (%) (Auto) % (0.0-3.0) Basophils (%) (Auto) % (0.0-2.0) Differential Total Cells Counted 100 Neutrophils % (Manual) 80 % (45-75) Lymphocytes % (Manual) 11 % (20-45) Monocytes % (Manual) 2 % (1-10) Eosinophils % (Manual) 0 % (0-3) Basophils % (Manual) 0 % (0-2) Band Neutrophils 7 % (0-8) Platelet Estimate Adequate Platelet Morphology Normal Hypochromasia 1+ Anisocytosis 1+ Sodium Level 144 MMOL/L (136-145) Potassium Level 4.0 MMOL/L (3.5-5.1) Chloride Level 113 MMOL/L (98-107) Carbon Dioxide Level 24 MMOL/L (21-32) Anion Gap 7 mmol/L (5-15) Blood Urea Nitrogen 17 mg/dL (7-18) Creatinine 1.1 MG/DL (0.55-1.30) Estimat Glomerular Filtration Rate mL/min (>60) Glucose Level 71 MG/DL (74-106) Lactic Acid Level 3.20 mmol/L (0.4-2.0) 2.60 mmol/L (0.66-2.22) Calcium Level 8.9 MG/DL (8.5-10.1) Total Bilirubin 0.4 MG/DL (0.2-1.0) Aspartate Amino Transf (AST/SGOT) 17 U/L (15-37) Alanine Aminotransferase (ALT/SGPT) < 6 U/L (12-78) Alkaline Phosphatase 76 U/L (46-116) Total Creatine Kinase 47 U/L (26-308) Creatine Kinase MB 5.1 NG/ML (0.0-3.6) Creatine Kinase MB Relative Index 10.8 Troponin I 0.000 ng/mL (0.000-0.056) Pro-B-Type Natriuretic Peptide 2858 pg/mL (0-125) Total Protein 6.7 G/DL (6.4-8.2) Albumin 1.2 G/DL (3.4-5.0) Globulin 5.5 g/dL Albumin/Globulin Ratio 0.2 (1.0-2.7) Arterial Blood pH 7.385 (7.350-7.450) Arterial Blood Partial Pressure CO2 43.1 mmHg (35.0-45.0) Arterial Blood Partial Pressure O2 55.9 mmHg (75.0-100.0) Arterial Blood HCO3 25.2 mmol/L (22.0-26.0) Arterial Blood Oxygen Saturation 88.3 % (95-100) Arterial Blood Base Excess 0.1 (-2-2) Cristofer Test Positive Test 03/26/19 18:50 03/26/19 20:20 03/26/19 23:10 03/27/19 03:00 Arterial Blood pH 7.462 (7.350-7.450) Arterial Blood Partial Pressure CO2 29.0 mmHg (35.0-45.0) Arterial Blood Partial Pressure O2 411.3 mmHg (75.0-100.0) Arterial Blood HCO3 20.3 mmol/L (22.0-26.0) Arterial Blood Oxygen Saturation 99.3 % (95-100) Arterial Blood Base Excess -2.8 (-2-2) Cristofer Test Positive White Blood Count 21.0 K/UL (4.8-10.8) Red Blood Count 2.92 M/UL (4.70-6.10) Hemoglobin 8.4 G/DL (14.2-18.0) Hematocrit 25.5 % (42.0-52.0) Mean Corpuscular Volume 88 FL (80-99) Mean Corpuscular Hemoglobin 28.8 PG (27.0-31.0) Mean Corpuscular Hemoglobin Concent 32.9 G/DL (32.0-36.0) Red Cell Distribution Width 15.9 % (11.6-14.8) Platelet Count 187 K/UL (150-450) Mean Platelet Volume 4.9 FL (6.5-10.1) Neutrophils (%) (Auto) % (45.0-75.0) Lymphocytes (%) (Auto) % (20.0-45.0) Monocytes (%) (Auto) % (1.0-10.0) Eosinophils (%) (Auto) % (0.0-3.0) Basophils (%) (Auto) % (0.0-2.0) D-Dimer 3.16 mg/L FEU (0.00-0.49) Sodium Level 140 MMOL/L (136-145) Potassium Level 3.7 MMOL/L (3.5-5.1) Chloride Level 106 MMOL/L (98-107) Carbon Dioxide Level 25 MMOL/L (21-32) Anion Gap 9 mmol/L (5-15) Blood Urea Nitrogen 18 mg/dL (7-18) Creatinine 1.2 MG/DL (0.55-1.30) Estimat Glomerular Filtration Rate mL/min (>60) Glucose Level 111 MG/DL (74-106) Lactic Acid Level 3.00 mmol/L (0.4-2.0) 5.10 mmol/L (0.66-2.22) Calcium Level 8.8 MG/DL (8.5-10.1) Phosphorus Level 3.3 MG/DL (2.5-4.9) Magnesium Level 1.5 MG/DL (1.8-2.4) Pro-B-Type Natriuretic Peptide 9191 pg/mL (0-125) Test 03/27/19 03:50 03/27/19 07:15 03/27/19 08:30 03/27/19 15:45 White Blood Count 21.4 K/UL (4.8-10.8) Red Blood Count 2.93 M/UL (4.70-6.10) Hemoglobin 8.3 G/DL (14.2-18.0) Hematocrit 26.3 % (42.0-52.0) Mean Corpuscular Volume 90 FL (80-99) Mean Corpuscular Hemoglobin 28.3 PG (27.0-31.0) Mean Corpuscular Hemoglobin Concent 31.5 G/DL (32.0-36.0) Red Cell Distribution Width 16.6 % (11.6-14.8) Platelet Count 203 K/UL (150-450) Mean Platelet Volume 5.4 FL (6.5-10.1) Neutrophils (%) (Auto) % (45.0-75.0) Lymphocytes (%) (Auto) % (20.0-45.0) Monocytes (%) (Auto) % (1.0-10.0) Eosinophils (%) (Auto) % (0.0-3.0) Basophils (%) (Auto) % (0.0-2.0) Differential Total Cells Counted 100 Neutrophils % (Manual) 92 % (45-75) Lymphocytes % (Manual) 5 % (20-45) Monocytes % (Manual) 0 % (1-10) Eosinophils % (Manual) 0 % (0-3) Basophils % (Manual) 0 % (0-2) Band Neutrophils 3 % (0-8) Platelet Estimate Adequate Platelet Morphology Normal Hypochromasia 1+ Anisocytosis 1+ Sodium Level 139 MMOL/L (136-145) Potassium Level 3.9 MMOL/L (3.5-5.1) Chloride Level 105 MMOL/L (98-107) Carbon Dioxide Level 23 MMOL/L (21-32) Anion Gap 11 mmol/L (5-15) Blood Urea Nitrogen 18 mg/dL (7-18) Creatinine 1.3 MG/DL (0.55-1.30) Estimat Glomerular Filtration Rate mL/min (>60) Glucose Level 126 MG/DL (74-106) Calcium Level 8.5 MG/DL (8.5-10.1) Troponin I 0.048 ng/mL (0.000-0.056) Lactic Acid Level 2.70 mmol/L (0.4-2.0) 2.60 mmol/L (0.66-2.22) 3.60 mmol/L (0.4-2.0) Thyroid Stimulating Hormone (TSH) 22.269 uiU/mL (0.358-3.740) Cortisol 12.6 UG/DL Test 03/27/19 23:00 03/28/19 03:37 03/28/19 07:25 03/28/19 10:18 Lactic Acid Level 1.80 mmol/L (0.4-2.0) White Blood Count 12.8 K/UL (4.8-10.8) 12.1 K/UL (4.8-10.8) Red Blood Count 2.37 M/UL (4.70-6.10) 2.34 M/UL (4.70-6.10) Hemoglobin 6.7 G/DL (14.2-18.0) 6.5 G/DL (14.2-18.0) Hematocrit 20.9 % (42.0-52.0) 20.8 % (42.0-52.0) Mean Corpuscular Volume 88 FL (80-99) 89 FL (80-99) Mean Corpuscular Hemoglobin 28.3 PG (27.0-31.0) 27.9 PG (27.0-31.0) Mean Corpuscular Hemoglobin Concent 32.1 G/DL (32.0-36.0) 31.5 G/DL (32.0-36.0) Red Cell Distribution Width 16.6 % (11.6-14.8) 16.5 % (11.6-14.8) Platelet Count 119 K/UL (150-450) 124 K/UL (150-450) Mean Platelet Volume 5.0 FL (6.5-10.1) 5.0 FL (6.5-10.1) Neutrophils (%) (Auto) % (45.0-75.0) % (45.0-75.0) Lymphocytes (%) (Auto) % (20.0-45.0) % (20.0-45.0) Monocytes (%) (Auto) % (1.0-10.0) % (1.0-10.0) Eosinophils (%) (Auto) % (0.0-3.0) % (0.0-3.0) Basophils (%) (Auto) % (0.0-2.0) % (0.0-2.0) Differential Total Cells Counted 100 100 Neutrophils % (Manual) 81 % (45-75) 81 % (45-75) Lymphocytes % (Manual) 19 % (20-45) 17 % (20-45) Monocytes % (Manual) 0 % (1-10) 1 % (1-10) Eosinophils % (Manual) 0 % (0-3) 1 % (0-3) Basophils % (Manual) 0 % (0-2) 0 % (0-2) Band Neutrophils 0 % (0-8) 0 % (0-8) Platelet Estimate Decreased Decreased Platelet Morphology Normal Normal Hypochromasia 1+ 1+ Anisocytosis 1+ 1+ Erythrocyte Sedimentation Rate 140 MM/HR (0-20) Prothrombin Time 12.6 SEC (9.30-11.50) Prothromb Time International Ratio 1.2 (0.9-1.1) Activated Partial Thromboplast Time 45 SEC (23-33) Sodium Level 139 MMOL/L (136-145) Potassium Level 3.6 MMOL/L (3.5-5.1) Chloride Level 106 MMOL/L (98-107) Carbon Dioxide Level 24 MMOL/L (21-32) Anion Gap 9 mmol/L (5-15) Blood Urea Nitrogen 18 mg/dL (7-18) Creatinine 1.4 MG/DL (0.55-1.30) Estimat Glomerular Filtration Rate mL/min (>60) Glucose Level 113 MG/DL (74-106) Calcium Level 8.3 MG/DL (8.5-10.1) Total Bilirubin 0.4 MG/DL (0.2-1.0) Aspartate Amino Transf (AST/SGOT) 21 U/L (15-37) Alanine Aminotransferase (ALT/SGPT) 7 U/L (12-78) Alkaline Phosphatase 76 U/L (46-116) C-Reactive Protein, Quantitative 27.4 mg/dL (0.00-0.90) Total Protein 6.1 G/DL (6.4-8.2) Albumin 1.0 G/DL (3.4-5.0) Globulin 5.1 g/dL Albumin/Globulin Ratio 0.2 (1.0-2.7) Arterial Blood pH 7.443 (7.350-7.450) Arterial Blood Partial Pressure CO2 33.9 mmHg (35.0-45.0) Arterial Blood Partial Pressure O2 160.7 mmHg (75.0-100.0) Arterial Blood HCO3 22.7 mmol/L (22.0-26.0) Arterial Blood Oxygen Saturation 99.1 % (95-100) Arterial Blood Base Excess -1.2 (-2-2) Cristofer Test Positive Height (Feet): 6 Height (Inches): 2.00 Weight (Pounds): 173 Objective PE General: severe distress, chronically Ill ENT: moist mucus membranes Neck: limited range of motion Respiratory: respiratory distress, rhonch ++ vent Cardiovascular: RRr, no mgr Gastrointestinal: normal inspection, soft Msk: normal inspection Neuro: responsive, motor weakness Skin: no rash Jake Womack MD Mar 28, 2019 14:33
--- NOTE | 2019-03-28 14:41 | Pulmonolgy Critical Care Note ---
Critical Care - Asmt/Plan Problems: (1) Severe sepsis (2) Respiratory distress (3) Dyspnea (4) Hypoxia (5) Decubitus skin ulcer (6) Lung mass (7) Multifocal pneumonia (8) Elevated TSH (9) Staphylococcus aureus bacteremia Assessment/Plan: Continue D5NS@100 Continue ventilatory support/settings reviewed PRN HHN's Daily SBT - will keep intubated in case plan for EGD Titrate KRANTHI to keep MAP > 60 F/U TFTs Vanco/Zosyn (D2) per ID F/U Cx's ICU sedation: Fent gtt titrate to RASS - 2 + PRN Versed F/U cards recs Continue Hep SQ for now, once acute issues resolved consider resuming Xarelto Monitor HH, F/U FOBT, consider GI eval Once acute issues resolved can address known RUL mass FC, continue to discuss GOC ---> d/w and daughter both reaffirmed desire for full treatment measures but reiterated that they would consider a more a palliative approach based on his trajectory the next few days Time Spent (Minutes): 40 Notes Reviewed: av specialist, cardio, ID Discussed with: nurses, consultants Critical Care - Objective Last 24 Hour Vital Signs Date Time Temp Pulse Resp B/P (MAP) Pulse Ox O2 Delivery O2 Flow Rate FiO2 03/28/19 14:00 110/57 03/28/19 14:00 58 16 110/57 (74) 100 03/28/19 13:30 85 19 129/69 (89) 100 03/28/19 13:29 60 16 40 03/28/19 13:00 57 16 114/45 (68) 100 03/28/19 13:00 97/82 03/28/19 12:00 Mechanical Ventilator 03/28/19 12:00 103/57 03/28/19 12:00 40 03/28/19 12:00 97.5 61 16 103/57 (72) 100 03/28/19 11:25 59 03/28/19 11:00 117/47 03/28/19 11:00 61 16 117/47 (70) 100 03/28/19 10:54 57 16 40 03/28/19 10:00 112/45 03/28/19 10:00 61 13 112/45 (67) 100 03/28/19 09:30 59 12 91/38 (55) 100 03/28/19 09:30 120/45 03/28/19 09:30 63 12 91/38 (55) 100 03/28/19 09:04 63 13 40 40 03/28/19 09:03 100 03/28/19 09:00 61 11 120/45 (70) 100 03/28/19 09:00 123/47 03/28/19 09:00 64 12 123/47 (72) 100 03/28/19 08:30 98.1 60 13 116/49 (71) 100 03/28/19 08:30 63 12 117/58 (77) 100 03/28/19 08:00 40 03/28/19 08:00 66 16 116/42 (66) 100 03/28/19 08:00 61 03/28/19 08:00 116/42 03/28/19 08:00 Mechanical Ventilator 03/28/19 08:00 98.9 60 12 108/46 (66) 100 03/28/19 07:46 77 14 40 40 03/28/19 07:30 57 16 113/50 (71) 100 03/28/19 07:30 65 13 119/48 (71) 100 03/28/19 07:00 102/43 03/28/19 07:00 98.9 61 16 129/60 (83) 100 03/28/19 06:30 66 16 116/42 (66) 100 03/28/19 06:15 63 16 108/42 (64) 100 03/28/19 06:00 61 16 98/42 (60) 100 03/28/19 06:00 108/42 03/28/19 05:53 59 16 112/42 (65) 100 03/28/19 05:45 65 17 153/51 (85) 03/28/19 05:30 68 16 103/45 (64) 100 03/28/19 05:30 62 16 40 03/28/19 05:15 67 17 111/46 (67) 03/28/19 05:07 63 16 113/45 (67) 100 03/28/19 05:00 106 18 126/65 (85) 87 03/28/19 05:00 113/45 03/28/19 04:45 67 17 115/50 (71) 100 03/28/19 04:30 105 17 124/63 (83) 100 03/28/19 04:15 87 14 150/87 (108) 100 03/28/19 04:00 Mechanical Ventilator 03/28/19 04:00 40 03/28/19 04:00 150/87 03/28/19 04:00 60 16 129/49 (75) 100 03/28/19 04:00 62 03/28/19 03:45 64 17 123/45 (71) 100 03/28/19 03:30 60 15 121/47 (71) 100 03/28/19 03:15 62 16 120/47 (71) 100 03/28/19 03:10 67 16 40 03/28/19 03:00 59 16 119/44 (69) 100 03/28/19 03:00 120/47 03/28/19 02:45 61 16 115/44 (67) 100 03/28/19 02:30 65 17 114/52 (72) 100 03/28/19 02:15 62 16 113/46 (68) 100 03/28/19 02:00 118/47 03/28/19 02:00 66 18 118/47 (70) 100 03/28/19 01:45 61 16 118/41 (66) 100 03/28/19 01:30 62 16 40 03/28/19 01:30 61 16 117/47 (70) 100 03/28/19 01:15 65 17 115/46 (69) 100 03/28/19 01:00 62 16 112/50 (70) 100 03/28/19 01:00 115/46 03/28/19 00:45 66 16 118/43 (68) 100 03/28/19 00:34 106/44 03/28/19 00:30 64 16 97/52 (67) 100 03/28/19 00:15 60 16 106/44 (64) 100 03/28/19 00:00 64 17 103/52 (69) 100 03/28/19 00:00 40 03/28/19 00:00 64 03/28/19 00:00 106/44 03/28/19 00:00 Mechanical Ventilator 03/27/19 23:45 63 16 90/36 (54) 100 03/27/19 23:30 65 17 114/62 (79) 100 8/19/19 23:30 66 16 40 03/27/19 23:15 64 16 108/45 (66) 100 03/27/19 23:00 115/44 03/27/19 23:00 66 17 115/44 (67) 100 03/27/19 22:45 64 17 108/43 (64) 100 03/27/19 22:30 57 14 97/39 (58) 100 03/27/19 22:15 64 16 112/47 (68) 100 03/27/19 22:00 63 16 108/48 (68) 100 03/27/19 22:00 112/47 03/27/19 21:45 67 17 103/44 (63) 100 03/27/19 21:30 61 16 103/44 (63) 100 03/27/19 21:20 61 16 40 03/27/19 21:15 61 16 113/45 (67) 100 03/27/19 21:00 66 16 117/49 (71) 100 03/27/19 21:00 113/45 03/27/19 20:45 62 16 113/46 (68) 100 03/27/19 20:30 67 16 104/43 (63) 100 03/27/19 20:15 62 16 129/56 (80) 100 03/27/19 20:00 40 03/27/19 20:00 60 03/27/19 20:00 129/56 03/27/19 20:00 60 16 119/47 (71) 100 03/27/19 20:00 Mechanical Ventilator 03/27/19 19:30 59 16 40 03/27/19 19:00 146/44 03/27/19 19:00 65 16 131/51 (77) 100 03/27/19 18:30 153/49 03/27/19 18:00 147/52 03/27/19 18:00 65 16 155/54 (87) 100 03/27/19 17:30 65 16 144/51 (82) 100 03/27/19 17:15 69 17 88/53 (65) 100 03/27/19 17:00 72 17 40 03/27/19 17:00 116/61 03/27/19 17:00 81 16 137/45 (75) 100 03/27/19 16:45 66 16 145/51 (82) 100 03/27/19 16:45 74 16 116/61 (79) 100 03/27/19 16:30 109 16 104/86 (92) 100 03/27/19 16:23 148/52 03/27/19 16:15 65 16 134/55 (81) 100 03/27/19 16:00 40 03/27/19 16:00 64 03/27/19 16:00 148/52 03/27/19 16:00 97.1 66 16 148/62 (90) 100 03/27/19 16:00 Mechanical Ventilator 03/27/19 15:45 66 16 145/51 (82) 100 03/27/19 15:30 77 16 126/50 (75) 100 03/27/19 15:15 65 16 86/48 (61) 100 03/27/19 15:07 59 16 40 03/27/19 15:00 121 16 136/49 (78) 100 03/27/19 14:45 109 18 136/49 (78) 100 Status: other - intubated awake Condition: critical HEENT: atraumatic, normocephalic Lungs: rhonchi Heart: HR/BP unstable Abdomen: soft, non-tender, active bowel sounds Extremities: no C/C/E Micro: Microbiology Date/Time Source Procedure Growth Status 03/26/19 13:50 Blood Blood Culture - Preliminary Resulted 03/26/19 13:40 Blood Blood Culture - Preliminary Staphylococcus Aureus Resulted Blood Sugars: BS controlled Critical Care - Subjective ROS Limited/Unobtainable: Yes ICU Day: 2 Intubation Day: 2 Interval Events: 6 mcg NE + 2L S aureus in blood passed SBT Hb 6.5 Elevated PIP when biting on tube Condition: critical IV Access: central EKG Rhythm: Sinus Rhythm FI02: 40 Vent Support Breath Rate: 16 Vent Support Mode: AC Vent Tidal Volume: 600 Sputum Amount: Small PEEP: 5.0 PIP: 29 Fluids: D5NS@100 Drips: NE @ 6 Tube Feeding Amount: 25 I&O: Intake and Output 03/27/19 03/28/19 19:00 07:00 Intake Total 1986.0 ml 2247.812 ml Output Total 880 ml 1040 ml Balance 1106.0 ml 1207.812 ml Intake Free Water 120 ml IV Total 1866.0 ml 2247.812 ml Output Urine Total 880 ml 1040 ml Subjective: intubated CLAYTON CXR: Dec b inf ET-Tube: 7.5 ET Position: 24 Labs: Laboratory Tests Test 03/27/19 15:45 03/27/19 23:00 03/28/19 03:37 03/28/19 07:25 Lactic Acid Level 3.60 mmol/L (0.4-2.0) H 1.80 mmol/L (0.4-2.0) Thyroid Stimulating Hormone (TSH) 22.269 uiU/mL (0.358-3.740) Cortisol 12.6 UG/DL White Blood Count 12.8 K/UL (4.8-10.8) H 12.1 K/UL (4.8-10.8) H Red Blood Count 2.37 M/UL (4.70-6.10) L 2.34 M/UL (4.70-6.10) L Hemoglobin 6.7 G/DL (14.2-18.0) *L 6.5 G/DL (14.2-18.0) *L Hematocrit 20.9 % (42.0-52.0) L 20.8 % (42.0-52.0) L Mean Corpuscular Volume 88 FL (80-99) 89 FL (80-99) Mean Corpuscular Hemoglobin 28.3 PG (27.0-31.0) 27.9 PG (27.0-31.0) Mean Corpuscular Hemoglobin Concent 32.1 G/DL (32.0-36.0) 31.5 G/DL (32.0-36.0) L Red Cell Distribution Width 16.6 % (11.6-14.8) H 16.5 % (11.6-14.8) H Platelet Count 119 K/UL (150-450) L 124 K/UL (150-450) L Mean Platelet Volume 5.0 FL (6.5-10.1) L 5.0 FL (6.5-10.1) L Neutrophils (%) (Auto) % (45.0-75.0) % (45.0-75.0) Lymphocytes (%) (Auto) % (20.0-45.0) % (20.0-45.0) Monocytes (%) (Auto) % (1.0-10.0) % (1.0-10.0) Eosinophils (%) (Auto) % (0.0-3.0) % (0.0-3.0) Basophils (%) (Auto) % (0.0-2.0) % (0.0-2.0) Differential Total Cells Counted 100 100 Neutrophils % (Manual) 81 % (45-75) H 81 % (45-75) H Lymphocytes % (Manual) 19 % (20-45) L 17 % (20-45) L Monocytes % (Manual) 0 % (1-10) L 1 % (1-10) Eosinophils % (Manual) 0 % (0-3) 1 % (0-3) Basophils % (Manual) 0 % (0-2) 0 % (0-2) Band Neutrophils 0 % (0-8) 0 % (0-8) Platelet Estimate Decreased L Decreased L Platelet Morphology Normal Normal Hypochromasia 1+ 1+ Anisocytosis 1+ 1+ Erythrocyte Sedimentation Rate 140 MM/HR (0-20) H Prothrombin Time 12.6 SEC (9.30-11.50) H Prothromb Time International Ratio 1.2 (0.9-1.1) H Activated Partial Thromboplast Time 45 SEC (23-33) H Sodium Level 139 MMOL/L (136-145) Potassium Level 3.6 MMOL/L (3.5-5.1) Chloride Level 106 MMOL/L (98-107) Carbon Dioxide Level 24 MMOL/L (21-32) Anion Gap 9 mmol/L (5-15) Blood Urea Nitrogen 18 mg/dL (7-18) Creatinine 1.4 MG/DL (0.55-1.30) H Estimat Glomerular Filtration Rate mL/min (>60) Glucose Level 113 MG/DL (74-106) H Calcium Level 8.3 MG/DL (8.5-10.1) L Total Bilirubin 0.4 MG/DL (0.2-1.0) Aspartate Amino Transf (AST/SGOT) 21 U/L (15-37) Alanine Aminotransferase (ALT/SGPT) 7 U/L (12-78) L Alkaline Phosphatase 76 U/L (46-116) C-Reactive Protein, Quantitative 27.4 mg/dL (0.00-0.90) H Total Protein 6.1 G/DL (6.4-8.2) L Albumin 1.0 G/DL (3.4-5.0) L Globulin 5.1 g/dL Albumin/Globulin Ratio 0.2 (1.0-2.7) L Test 03/28/19 10:18 Arterial Blood pH 7.443 (7.350-7.450) Arterial Blood Partial Pressure CO2 33.9 mmHg (35.0-45.0) L Arterial Blood Partial Pressure O2 160.7 mmHg (75.0-100.0) H Arterial Blood HCO3 22.7 mmol/L (22.0-26.0) Arterial Blood Oxygen Saturation 99.1 % (95-100) Arterial Blood Base Excess -1.2 (-2-2) Cristofer Test Positive Joaquim Bello MD Mar 28, 2019 14:41
[2019-03-28] MEDS ORDERED: fentaNYL Citrate 2,500 MCG in NS 200 ML IV SCH (14:45)
[2019-03-28] MEDS: fentaNYL Citrate 1000 MCG in NS 100ml IV SCH ×2 (14:45→20:47)
[2019-03-28] MEDS ORDERED: Midazolam 2mg/2ml Inj IVP PRN (14:45)
--- NOTE | 2019-03-28 14:45 | NUR ---
NURSE NOTES: Dr Bello here to see the patient and talked to and daughter at bedside. Updated him with pt's current condition. Orders received from Dr Bello and noted and carried out.
--- NOTE | 2019-03-28 15:15 | NUR ---
NURSE NOTES: pRBC transfusion done. Post transfusion temp 97.1, HR 58, BP 141/43. No adverse transfusion reaction noted. Will continue to monitor.
--- NOTE | 2019-03-28 15:51 | Surgery Progress Note ---
Surgery Progress Note Subjective Additional Comments leukocytosis stable exam unchanged anemia persistent Objective Last 24 Hour Vital Signs Date Time Temp Pulse Resp B/P (MAP) Pulse Ox O2 Delivery O2 Flow Rate FiO2 03/28/19 15:02 58 16 40 03/28/19 15:00 59 16 121/43 (69) 100 03/28/19 15:00 121/43 03/28/19 14:45 60 16 123/51 (75) 100 03/28/19 14:30 117 16 125/74 (91) 100 03/28/19 14:00 110/57 03/28/19 14:00 58 16 110/57 (74) 100 03/28/19 13:30 85 19 129/69 (89) 100 03/28/19 13:29 60 16 40 03/28/19 13:00 57 16 114/45 (68) 100 03/28/19 13:00 97/82 03/28/19 12:00 Mechanical Ventilator 03/28/19 12:00 103/57 03/28/19 12:00 40 03/28/19 12:00 97.5 61 16 103/57 (72) 100 03/28/19 11:25 59 03/28/19 11:00 117/47 03/28/19 11:00 61 16 117/47 (70) 100 03/28/19 10:54 57 16 40 03/28/19 10:00 112/45 03/28/19 10:00 61 13 112/45 (67) 100 03/28/19 09:30 59 12 91/38 (55) 100 03/28/19 09:30 120/45 03/28/19 09:30 63 12 91/38 (55) 100 03/28/19 09:04 63 13 40 40 03/28/19 09:03 100 03/28/19 09:00 61 11 120/45 (70) 100 03/28/19 09:00 123/47 03/28/19 09:00 64 12 123/47 (72) 100 03/28/19 08:30 98.1 60 13 116/49 (71) 100 03/28/19 08:30 63 12 117/58 (77) 100 03/28/19 08:00 40 03/28/19 08:00 66 16 116/42 (66) 100 8/20/19 08:00 61 03/28/19 08:00 116/42 03/28/19 08:00 Mechanical Ventilator 03/28/19 08:00 98.9 60 12 108/46 (66) 100 03/28/19 07:46 77 14 40 40 03/28/19 07:30 57 16 113/50 (71) 100 03/28/19 07:30 65 13 119/48 (71) 100 03/28/19 07:00 102/43 03/28/19 07:00 98.9 61 16 129/60 (83) 100 03/28/19 06:30 66 16 116/42 (66) 100 03/28/19 06:15 63 16 108/42 (64) 100 03/28/19 06:00 61 16 98/42 (60) 100 03/28/19 06:00 108/42 03/28/19 05:53 59 16 112/42 (65) 100 03/28/19 05:45 65 17 153/51 (85) 03/28/19 05:30 68 16 103/45 (64) 100 03/28/19 05:30 62 16 40 03/28/19 05:15 67 17 111/46 (67) 03/28/19 05:07 63 16 113/45 (67) 100 03/28/19 05:00 106 18 126/65 (85) 87 03/28/19 05:00 113/45 03/28/19 04:45 67 17 115/50 (71) 100 03/28/19 04:30 105 17 124/63 (83) 100 03/28/19 04:15 87 14 150/87 (108) 100 03/28/19 04:00 Mechanical Ventilator 03/28/19 04:00 40 03/28/19 04:00 150/87 03/28/19 04:00 60 16 129/49 (75) 100 03/28/19 04:00 62 03/28/19 03:45 64 17 123/45 (71) 100 03/28/19 03:30 60 15 121/47 (71) 100 03/28/19 03:15 62 16 120/47 (71) 100 03/28/19 03:10 67 16 40 03/28/19 03:00 59 16 119/44 (69) 100 03/28/19 03:00 120/47 03/28/19 02:45 61 16 115/44 (67) 100 03/28/19 02:30 65 17 114/52 (72) 100 03/28/19 02:15 62 16 113/46 (68) 100 03/28/19 02:00 118/47 03/28/19 02:00 66 18 118/47 (70) 100 03/28/19 01:45 61 16 118/41 (66) 100 03/28/19 01:30 62 16 40 03/28/19 01:30 61 16 117/47 (70) 100 03/28/19 01:15 65 17 115/46 (69) 100 03/28/19 01:00 62 16 112/50 (70) 100 03/28/19 01:00 115/46 03/28/19 00:45 66 16 118/43 (68) 100 03/28/19 00:34 106/44 03/28/19 00:30 64 16 97/52 (67) 100 03/28/19 00:15 60 16 106/44 (64) 100 03/28/19 00:00 64 17 103/52 (69) 100 03/28/19 00:00 40 03/28/19 00:00 64 03/28/19 00:00 106/44 03/28/19 00:00 Mechanical Ventilator 03/27/19 23:45 63 16 90/36 (54) 100 03/27/19 23:30 65 17 114/62 (79) 100 03/27/19 23:30 66 16 40 03/27/19 23:15 64 16 108/45 (66) 100 03/27/19 23:00 115/44 03/27/19 23:00 66 17 115/44 (67) 100 03/27/19 22:45 64 17 108/43 (64) 100 03/27/19 22:30 57 14 97/39 (58) 100 03/27/19 22:15 64 16 112/47 (68) 100 03/27/19 22:00 63 16 108/48 (68) 100 03/27/19 22:00 112/47 03/27/19 21:45 67 17 103/44 (63) 100 03/27/19 21:30 61 16 103/44 (63) 100 03/27/19 21:20 61 16 40 03/27/19 21:15 61 16 113/45 (67) 100 03/27/19 21:00 66 16 117/49 (71) 100 03/27/19 21:00 113/45 03/27/19 20:45 62 16 113/46 (68) 100 03/27/19 20:30 67 16 104/43 (63) 100 03/27/19 20:15 62 16 129/56 (80) 100 03/27/19 20:00 40 03/27/19 20:00 60 03/27/19 20:00 129/56 03/27/19 20:00 60 16 119/47 (71) 100 03/27/19 20:00 Mechanical Ventilator 03/27/19 19:30 59 16 40 03/27/19 19:00 146/44 03/27/19 19:00 65 16 131/51 (77) 100 03/27/19 18:30 153/49 03/27/19 18:00 147/52 03/27/19 18:00 65 16 155/54 (87) 100 03/27/19 17:30 65 16 144/51 (82) 100 03/27/19 17:15 69 17 88/53 (65) 100 03/27/19 17:00 72 17 40 03/27/19 17:00 116/61 03/27/19 17:00 81 16 137/45 (75) 100 03/27/19 16:45 66 16 145/51 (82) 100 03/27/19 16:45 74 16 116/61 (79) 100 03/27/19 16:30 109 16 104/86 (92) 100 03/27/19 16:23 148/52 03/27/19 16:15 65 16 134/55 (81) 100 03/27/19 16:00 40 03/27/19 16:00 64 03/27/19 16:00 148/52 03/27/19 16:00 97.1 66 16 148/62 (90) 100 03/27/19 16:00 Mechanical Ventilator I&O Intake and Output 03/27/19 03/28/19 18:59 06:59 Intake Total 1969.0 ml 2081.604 ml Output Total 800 ml 1040 ml Balance 1169.0 ml 1041.604 ml Intake Free Water 120 ml IV Total 1849.0 ml 2081.604 ml Output Urine Total 800 ml 1040 ml Dressing: other Wound: other Drains: other Cardiovascular: RSR Respiratory: decreased breath sounds Abdomen: soft, present bowel sounds, other Extremities: other Laboratory Tests Test 03/27/19 23:00 03/28/19 03:37 03/28/19 07:25 03/28/19 10:18 Lactic Acid Level 1.80 mmol/L (0.4-2.0) White Blood Count 12.8 K/UL (4.8-10.8) H 12.1 K/UL (4.8-10.8) H Red Blood Count 2.37 M/UL (4.70-6.10) L 2.34 M/UL (4.70-6.10) L Hemoglobin 6.7 G/DL (14.2-18.0) *L 6.5 G/DL (14.2-18.0) *L Hematocrit 20.9 % (42.0-52.0) L 20.8 % (42.0-52.0) L Mean Corpuscular Volume 88 FL (80-99) 89 FL (80-99) Mean Corpuscular Hemoglobin 28.3 PG (27.0-31.0) 27.9 PG (27.0-31.0) Mean Corpuscular Hemoglobin Concent 32.1 G/DL (32.0-36.0) 31.5 G/DL (32.0-36.0) L Red Cell Distribution Width 16.6 % (11.6-14.8) H 16.5 % (11.6-14.8) H Platelet Count 119 K/UL (150-450) L 124 K/UL (150-450) L Mean Platelet Volume 5.0 FL (6.5-10.1) L 5.0 FL (6.5-10.1) L Neutrophils (%) (Auto) % (45.0-75.0) % (45.0-75.0) Lymphocytes (%) (Auto) % (20.0-45.0) % (20.0-45.0) Monocytes (%) (Auto) % (1.0-10.0) % (1.0-10.0) Eosinophils (%) (Auto) % (0.0-3.0) % (0.0-3.0) Basophils (%) (Auto) % (0.0-2.0) % (0.0-2.0) Differential Total Cells Counted 100 100 Neutrophils % (Manual) 81 % (45-75) H 81 % (45-75) H Lymphocytes % (Manual) 19 % (20-45) L 17 % (20-45) L Monocytes % (Manual) 0 % (1-10) L 1 % (1-10) Eosinophils % (Manual) 0 % (0-3) 1 % (0-3) Basophils % (Manual) 0 % (0-2) 0 % (0-2) Band Neutrophils 0 % (0-8) 0 % (0-8) Platelet Estimate Decreased L Decreased L Platelet Morphology Normal Normal Hypochromasia 1+ 1+ Anisocytosis 1+ 1+ Erythrocyte Sedimentation Rate 140 MM/HR (0-20) H Prothrombin Time 12.6 SEC (9.30-11.50) H Prothromb Time International Ratio 1.2 (0.9-1.1) H Activated Partial Thromboplast Time 45 SEC (23-33) H Sodium Level 139 MMOL/L (136-145) Potassium Level 3.6 MMOL/L (3.5-5.1) Chloride Level 106 MMOL/L (98-107) Carbon Dioxide Level 24 MMOL/L (21-32) Anion Gap 9 mmol/L (5-15) Blood Urea Nitrogen 18 mg/dL (7-18) Creatinine 1.4 MG/DL (0.55-1.30) H Estimat Glomerular Filtration Rate mL/min (>60) Glucose Level 113 MG/DL (74-106) H Calcium Level 8.3 MG/DL (8.5-10.1) L Total Bilirubin 0.4 MG/DL (0.2-1.0) Aspartate Amino Transf (AST/SGOT) 21 U/L (15-37) Alanine Aminotransferase (ALT/SGPT) 7 U/L (12-78) L Alkaline Phosphatase 76 U/L (46-116) C-Reactive Protein, Quantitative 27.4 mg/dL (0.00-0.90) H Total Protein 6.1 G/DL (6.4-8.2) L Albumin 1.0 G/DL (3.4-5.0) L Globulin 5.1 g/dL Albumin/Globulin Ratio 0.2 (1.0-2.7) L Arterial Blood pH 7.443 (7.350-7.450) Arterial Blood Partial Pressure CO2 33.9 mmHg (35.0-45.0) L Arterial Blood Partial Pressure O2 160.7 mmHg (75.0-100.0) H Arterial Blood HCO3 22.7 mmol/L (22.0-26.0) Arterial Blood Oxygen Saturation 99.1 % (95-100) Arterial Blood Base Excess -1.2 (-2-2) Cristofer Test Positive Test 03/28/19 15:00 Stool Occult Blood Pending Free Thyroxine Pending Triiodothyonine (T3) Pending Free Triiodothyronine Pending Triiodothyronine (T3) Uptake Pending Hepatitis A IgM Antibody Pending Hepatitis B Surface Antigen Pending Hepatitis B Core IgM Antibody Pending Hepatitis C Antibody Pending HIV (1&2) Antibody Rapid Pending Plan Problems: (1) Respiratory distress (2) Decubitus skin ulcer Assessment & Plan: Pt presented on admission with multiple pressure injuries and ulcerations 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 Base of wound has mixed slough and necrosis. Edges adherent and dark . Periwound indurated with darker skin tone. Pt complained of pain when minimally palpated. Mild odor noted Full thickness ulcer R tibia. Base of wound has slough. Edges adherent and flat ,Periwound without erythema or fluctuance. Stable dry eschar noted to R hallux. edges are dark but adherent to base of wound. Periwound dark without erythema or fluctuance Stable dry eschar noted to R st metatarsal head. Periwound pale without fluctuance Stable dry eschar noted to dorsal aspects of R 3rd and 4th metatarsals. Full thickness ulcer lateral R 5th metatarsal. base of wound with some areas of necrosis and edges are black . No odor or exudate noted Stable dry eschar R heel . Periwound fluctuant without erythema. Pt complained of pain when minimally palpated. Stable dry eschar noted to dorso/flexor L foot. Periwound without erythema , induration or fluctuance Reabsorbing blood blister noted to medial L foot. Periwound without erythema or fluctuance L heel is dry and blanchable with historical scarring from previous wounds .Dry flaky skin noted to both feet. Tx.Plan: Swab all wounds both lower ext and feet with Betadine. Cover each wound with Optifoam drsgs every 3 days and prn. Cleanse Sacral wound with Saline. Apply Therahoney. Apply Moisture Barrier Paste periwound. Cover with Optifoam Drsg. Change Daily and prn. APM/PHIL mattress overlay. Reposition at least every 2hours or as tolerated. Off-load heels with pillow. (3) Severe sepsis Assessment & Plan: leukocytosis anemia lactic acidosis on pressors septic labs noted imaging noted Cont IV abx as per ID feeds wounds evaluated and care plan as above labs noted f/u cxr will follow with recs thank you DAILY ESTIMATED NEEDS: Needs based on Wound, critical care 78.6kg 25-30 kcals/kg 8181-0769 total kcals 1.25-2 g protein/kg 98-157 g total protein Fluid per MD, on lasix NUTRITION DIAGNOSIS: 1) Increased kcal/ pro needs r/t wound healing as evidenced by full thickness sacral wound, pending updated eval. 2) Swallowing difficulty r/t respiratory status as evidenced by s/p RR, pt now orally intubated, on pressor support. CURRENT DIET: Regular-> pt now intubated ENTERAL NUTRITION RECOMMENDATIONS: Osmolite 1.5 @55ml/hr x24 hrs + Prosource BID to provide 1320ml, 1980 kcal, 83g + 22g pro, 1006ml free H2O - WHEN HEMODYNAMICALLY STABLE, rec to obtain GI access, initiate non oral feeds to meed est nutritional needs - Start Osmolite 1.5 @25ml/hr for 6 hrs, advance as tolerated 10ml/hr q4-6 hrs to goal. 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
--- NOTE | 2019-03-28 16:00 | NUR ---
NURSE NOTES: Fentanyl drip is ready. Holding Fentanyl drip since pt is too lethargic. Will continue to monitor.
[2019-03-28] MEDS ORDERED: D5NS 1000ml IV ONE (16:55)
[2019-03-28] MEDS ORDERED: Tubing IV Secondary IV ONE (16:55)
[2019-03-28] MEDS ORDERED: NS 275ml ONE (16:55)
--- NOTE | 2019-03-28 18:30 | NUR ---
NURSE NOTES: Cleaned pt for small amount of loose BM. Unable to collect OB stool at this time since stool amount is not enough to collect. Repositioned pt.
--- NOTE | 2019-03-28 18:44 | Cardiac Electrophysiology PN ---
Assessment/Plan Assessment/Plan 1. Septic shock. Blood Cx positive for GP cocci. The patient is on Levophed and Midodrine as well as IV antibiotics. His echocardiogram showed ejection fraction of 60 to 65 percent with mild diastolic dysfunction. 2. Respiratory failure, likely due to pneumonia. The patient is on broad-spectrum IV antibiotics. 3. Mild diastolic dysfunction with elevated BNP. Off lasis 4. 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 UTI. AVERY RN Subjective Subjective Intubated on the vent and still on Levophed 4 mcg Objective Last 24 Hour Vital Signs Date Time Temp Pulse Resp B/P (MAP) Pulse Ox O2 Delivery O2 Flow Rate FiO2 03/28/19 18:30 62 16 100/47 (64) 100 03/28/19 18:00 67 16 110/57 (74) 100 03/28/19 17:30 88 21 146/66 (92) 100 03/28/19 17:29 98 21 40 03/28/19 17:00 58 16 97/38 (57) 100 03/28/19 17:00 70 18 107/51 (69) 100 03/28/19 16:30 97.2 72 21 112/41 (64) 100 03/28/19 16:00 40 03/28/19 16:00 60 03/28/19 16:00 58 16 97/38 (57) 100 03/28/19 15:02 58 16 40 03/28/19 15:00 59 16 121/43 (69) 100 03/28/19 15:00 121/43 03/28/19 14:45 60 16 123/51 (75) 100 03/28/19 14:30 117 16 125/74 (91) 100 03/28/19 14:00 110/57 03/28/19 14:00 58 16 110/57 (74) 100 03/28/19 13:30 85 19 129/69 (89) 100 03/28/19 13:29 60 16 40 03/28/19 13:00 57 16 114/45 (68) 100 03/28/19 13:00 97/82 03/28/19 12:00 Mechanical Ventilator 03/28/19 12:00 103/57 03/28/19 12:00 40 03/28/19 12:00 97.5 61 16 103/57 (72) 100 03/28/19 11:25 59 03/28/19 11:00 117/47 03/28/19 11:00 61 16 117/47 (70) 100 03/28/19 10:54 57 16 40 03/28/19 10:00 112/45 03/28/19 10:00 61 13 112/45 (67) 100 03/28/19 09:30 59 12 91/38 (55) 100 03/28/19 09:30 120/45 03/28/19 09:30 63 12 91/38 (55) 100 03/28/19 09:04 63 13 40 40 03/28/19 09:03 100 03/28/19 09:00 61 11 120/45 (70) 100 03/28/19 09:00 123/47 03/28/19 09:00 64 12 123/47 (72) 100 03/28/19 08:30 98.1 60 13 116/49 (71) 100 03/28/19 08:30 63 12 117/58 (77) 100 03/28/19 08:00 40 03/28/19 08:00 66 16 116/42 (66) 100 03/28/19 08:00 61 03/28/19 08:00 116/42 03/28/19 08:00 Mechanical Ventilator 03/28/19 08:00 98.9 60 12 108/46 (66) 100 03/28/19 07:46 77 14 40 40 03/28/19 07:30 57 16 113/50 (71) 100 03/28/19 07:30 65 13 119/48 (71) 100 03/28/19 07:00 102/43 03/28/19 07:00 98.9 61 16 129/60 (83) 100 03/28/19 06:30 66 16 116/42 (66) 100 03/28/19 06:15 63 16 108/42 (64) 100 03/28/19 06:00 61 16 98/42 (60) 100 03/28/19 06:00 108/42 03/28/19 05:53 59 16 112/42 (65) 100 03/28/19 05:45 65 17 153/51 (85) 03/28/19 05:30 68 16 103/45 (64) 100 03/28/19 05:30 62 16 40 03/28/19 05:15 67 17 111/46 (67) 03/28/19 05:07 63 16 113/45 (67) 100 03/28/19 05:00 106 18 126/65 (85) 87 03/28/19 05:00 113/45 03/28/19 04:45 67 17 115/50 (71) 100 03/28/19 04:30 105 17 124/63 (83) 100 03/28/19 04:15 87 14 150/87 (108) 100 03/28/19 04:00 Mechanical Ventilator 03/28/19 04:00 40 03/28/19 04:00 150/87 03/28/19 04:00 60 16 129/49 (75) 100 03/28/19 04:00 62 03/28/19 03:45 64 17 123/45 (71) 100 03/28/19 03:30 60 15 121/47 (71) 100 03/28/19 03:15 62 16 120/47 (71) 100 03/28/19 03:10 67 16 40 03/28/19 03:00 59 16 119/44 (69) 100 03/28/19 03:00 120/47 03/28/19 02:45 61 16 115/44 (67) 100 03/28/19 02:30 65 17 114/52 (72) 100 03/28/19 02:15 62 16 113/46 (68) 100 03/28/19 02:00 118/47 03/28/19 02:00 66 18 118/47 (70) 100 03/28/19 01:45 61 16 118/41 (66) 100 03/28/19 01:30 62 16 40 03/28/19 01:30 61 16 117/47 (70) 100 03/28/19 01:15 65 17 115/46 (69) 100 03/28/19 01:00 62 16 112/50 (70) 100 03/28/19 01:00 115/46 03/28/19 00:45 66 16 118/43 (68) 100 03/28/19 00:34 106/44 03/28/19 00:30 64 16 97/52 (67) 100 03/28/19 00:15 60 16 106/44 (64) 100 03/28/19 00:00 64 17 103/52 (69) 100 03/28/19 00:00 40 03/28/19 00:00 64 03/28/19 00:00 106/44 03/28/19 00:00 Mechanical Ventilator 03/27/19 23:45 63 16 90/36 (54) 100 03/27/19 23:30 65 17 114/62 (79) 100 03/27/19 23:30 66 16 40 03/27/19 23:15 64 16 108/45 (66) 100 03/27/19 23:00 115/44 03/27/19 23:00 66 17 115/44 (67) 100 03/27/19 22:45 64 17 108/43 (64) 100 03/27/19 22:30 57 14 97/39 (58) 100 03/27/19 22:15 64 16 112/47 (68) 100 03/27/19 22:00 63 16 108/48 (68) 100 03/27/19 22:00 112/47 03/27/19 21:45 67 17 103/44 (63) 100 03/27/19 21:30 61 16 103/44 (63) 100 03/27/19 21:20 61 16 40 03/27/19 21:15 61 16 113/45 (67) 100 03/27/19 21:00 66 16 117/49 (71) 100 03/27/19 21:00 113/45 03/27/19 20:45 62 16 113/46 (68) 100 03/27/19 20:30 67 16 104/43 (63) 100 03/27/19 20:15 62 16 129/56 (80) 100 03/27/19 20:00 40 03/27/19 20:00 60 03/27/19 20:00 129/56 03/27/19 20:00 60 16 119/47 (71) 100 03/27/19 20:00 Mechanical Ventilator 03/27/19 19:30 59 16 40 03/27/19 19:00 146/44 03/27/19 19:00 65 16 131/51 (77) 100 Intake and Output 03/27/19 03/28/19 19:00 07:00 Intake Total 1986.0 ml 2247.812 ml Output Total 880 ml 1040 ml Balance 1106.0 ml 1207.812 ml Intake Free Water 120 ml IV Total 1866.0 ml 2247.812 ml Output Urine Total 880 ml 1040 ml Laboratory Tests Test 03/27/19 23:00 03/28/19 03:37 03/28/19 07:25 03/28/19 10:18 Lactic Acid Level 1.80 mmol/L (0.4-2.0) White Blood Count 12.8 K/UL (4.8-10.8) H 12.1 K/UL (4.8-10.8) H Red Blood Count 2.37 M/UL (4.70-6.10) L 2.34 M/UL (4.70-6.10) L Hemoglobin 6.7 G/DL (14.2-18.0) *L 6.5 G/DL (14.2-18.0) *L Hematocrit 20.9 % (42.0-52.0) L 20.8 % (42.0-52.0) L Mean Corpuscular Volume 88 FL (80-99) 89 FL (80-99) Mean Corpuscular Hemoglobin 28.3 PG (27.0-31.0) 27.9 PG (27.0-31.0) Mean Corpuscular Hemoglobin Concent 32.1 G/DL (32.0-36.0) 31.5 G/DL (32.0-36.0) L Red Cell Distribution Width 16.6 % (11.6-14.8) H 16.5 % (11.6-14.8) H Platelet Count 119 K/UL (150-450) L 124 K/UL (150-450) L Mean Platelet Volume 5.0 FL (6.5-10.1) L 5.0 FL (6.5-10.1) L Neutrophils (%) (Auto) % (45.0-75.0) % (45.0-75.0) Lymphocytes (%) (Auto) % (20.0-45.0) % (20.0-45.0) Monocytes (%) (Auto) % (1.0-10.0) % (1.0-10.0) Eosinophils (%) (Auto) % (0.0-3.0) % (0.0-3.0) Basophils (%) (Auto) % (0.0-2.0) % (0.0-2.0) Differential Total Cells Counted 100 100 Neutrophils % (Manual) 81 % (45-75) H 81 % (45-75) H Lymphocytes % (Manual) 19 % (20-45) L 17 % (20-45) L Monocytes % (Manual) 0 % (1-10) L 1 % (1-10) Eosinophils % (Manual) 0 % (0-3) 1 % (0-3) Basophils % (Manual) 0 % (0-2) 0 % (0-2) Band Neutrophils 0 % (0-8) 0 % (0-8) Platelet Estimate Decreased L Decreased L Platelet Morphology Normal Normal Hypochromasia 1+ 1+ Anisocytosis 1+ 1+ Erythrocyte Sedimentation Rate 140 MM/HR (0-20) H Prothrombin Time 12.6 SEC (9.30-11.50) H Prothromb Time International Ratio 1.2 (0.9-1.1) H Activated Partial Thromboplast Time 45 SEC (23-33) H Sodium Level 139 MMOL/L (136-145) Potassium Level 3.6 MMOL/L (3.5-5.1) Chloride Level 106 MMOL/L (98-107) Carbon Dioxide Level 24 MMOL/L (21-32) Anion Gap 9 mmol/L (5-15) Blood Urea Nitrogen 18 mg/dL (7-18) Creatinine 1.4 MG/DL (0.55-1.30) H Estimat Glomerular Filtration Rate mL/min (>60) Glucose Level 113 MG/DL (74-106) H Calcium Level 8.3 MG/DL (8.5-10.1) L Total Bilirubin 0.4 MG/DL (0.2-1.0) Aspartate Amino Transf (AST/SGOT) 21 U/L (15-37) Alanine Aminotransferase (ALT/SGPT) 7 U/L (12-78) L Alkaline Phosphatase 76 U/L (46-116) C-Reactive Protein, Quantitative 27.4 mg/dL (0.00-0.90) H Total Protein 6.1 G/DL (6.4-8.2) L Albumin 1.0 G/DL (3.4-5.0) L Globulin 5.1 g/dL Albumin/Globulin Ratio 0.2 (1.0-2.7) L Arterial Blood pH 7.443 (7.350-7.450) Arterial Blood Partial Pressure CO2 33.9 mmHg (35.0-45.0) L Arterial Blood Partial Pressure O2 160.7 mmHg (75.0-100.0) H Arterial Blood HCO3 22.7 mmol/L (22.0-26.0) Arterial Blood Oxygen Saturation 99.1 % (95-100) Arterial Blood Base Excess -1.2 (-2-2) Cristofer Test Positive Test 03/28/19 15:00 Stool Occult Blood Pending Free Thyroxine 1.05 NG/DL (0.76-1.46) Triiodothyonine (T3) Pending Free Triiodothyronine 0.5 pg/mL (2.3-4.2) L Triiodothyronine (T3) Uptake Pending Hepatitis A IgM Antibody Pending Hepatitis B Surface Antigen Pending Hepatitis B Core IgM Antibody Pending Hepatitis C Antibody Pending HIV (1&2) Antibody Rapid Negative (NEGATIVE) Microbiology Date/Time Source Procedure Growth Status 03/26/19 13:50 Blood Blood Culture - Preliminary Resulted 03/26/19 13:40 Blood Blood Culture - Preliminary Staphylococcus Aureus Resulted Objective HEAD AND NECK: Orally intubated with NG-tube. LUNGS: Coarse rhonchi. CARDIOVASCULAR:Regular S1 and S2 with no gallop or murmur. ABDOMEN: Soft. EXTREMITIES: No pitting edema. Christian Vargas MD Mar 28, 2019 18:44
--- NOTE | 2019-03-28 18:45 | Progress Note ---
DATE: 03/28/2019 SUBJECTIVE: This is an elderly male, was intubated since the day before yesterday. He is more awake, alert, open his eyes, tolerating weaning protocols. The patient was also found to have hemoglobin is low 6.5. He looks otherwise comfortable. The patient also Levophed drip about 8 mcg. He is physically doing better. OBJECTIVE: VITAL SIGNS: Blood pressure 112/70, pulse 100, respirations 18 to 24, temperature, there is no fever. SKIN: Good skin turgor. HEENT: NAD. CHEST: Bilaterally clear. CARDIOVASCULAR: Regular rhythm. Tachycardia. ABDOMEN: Soft. Positive bowel sounds. EXTREMITIES: No edema. The patient has sacral decubitus stage IV . LABORATORY DATA: Hemoglobin is low 6.5. ASSESSMENT: 1. Anemia. Type and cross. Transfuse 1 unit. Hematology/Oncology on consult. 2. Acute respiratory failure. 3. Aspiration pneumonia. We are weaning protocols. Continue antibiotics. 4. Bacteremia. 5. Sacral decubitus. Wound care and Surgery on consult. Continue current treatment. PLAN: We will order NG tube feedings, laboratories, CBC, BMP post transfusion. Pedrito Mims M.D. DR: FREDERICK JOB#: [id number] CC:
--- NOTE | 2019-03-28 18:48 | NUR ---
RESPIRATORY NOTE: Received pt on AC 16, 600VT, 40%, PEEP +5. Pt is intubated w/ ETT 7.5 @ 24cm lipline, secured by anchorfast. Pt is alert/awake, follows commands. B/S jared. rhonchi, sxn small amounts of thick, godwin-yellow secretions. Both hands on soft restraints to prevent pt from self-extubation. Vent plugged into red outlet, ambubag at bedside. Pt in no apparent distress at this time. Will continue to monitor pt.
--- NOTE | 2019-03-28 19:20 | NUR ---
HAND-OFF: Report given to CELINE Denise.
--- NOTE | 2019-03-28 19:22 | NUR ---
NURSE NOTES: Received report from CELINE Prakash. Patient is responsive to verbal and open his eyes. ETT 7.5/24cm at lip line and vent setting AC 16, TV 600, FiO2 40% and Peep 5. Right nare NGT intact and running with Osmolite 1.5 @45ml/hr. Right femoral TLC intact and clean and running with Levophed 4mcg/min and D5NS 100ml/hr. On bilateral soft wrist bands restraints noted. Skin intact and clean on restraints site. No acute distress/SOB noted. No s/sx of pain noted. Call light placed in easy reach. Will continue plan of care.
[2019-03-28] MEDS: Dyna-Hex 2% Top Sol 2oz TOPIC SCH (20:12)
--- NOTE | 2019-03-28 20:47 | NUR ---
NURSE NOTES: Patient is drowsy. Open eyes to voice. Started Fentanyl drip @10mcg/hr=1ml/hr. RASS goal -2.
--- NOTE | 2019-03-28 22:05 | NUR ---
NURSE NOTES: Oral care provided and repositioned patient. Fentanyl drip @10mcg/hr with RASS -2
[2019-03-28] MEDS: Dakin's 0.125% Soln (Quarter Strength) 16oz TOPIC SCH (23:57)
[2019-03-29] VITALS (52 sets, daily range): BP systolic 70–136; BP diastolic 34–79
--- NOTE | 2019-03-29 00:12 | NUR ---
NURSE NOTES: Repositioned patient. No change in condition. Will continue plan of care.
[2019-03-29] MEDS: Phenylephrine 50 MG in D5W 245 ML IV SCH (01:45)
--- NOTE | 2019-03-29 02:03 | NUR ---
NURSE NOTES: Repositioned patient. No change in condition.
[2019-03-29] MEDS: D5NS 1,000 ML IV SCH ×2 (02:12→18:30)
--- NOTE | 2019-03-29 03:54 | NUR ---
NURSE NOTES: Bed bath and oral care given. Will continue plan of care.
[2019-03-29] MEDS: Vancomycin 1gm/D5W 275ml IVPB SCH ×2 (04:20)
[2019-03-29 04:41] LABS: BASOPHILS % (AUTO) 0.1 % (0.0-2.0); EOSINOPHILS % (AUTO) 0.4 % (0.0-3.0); HEMATOCRIT 25.6 % (42.0-52.0); HEMOGLOBIN 8.1 G/DL (14.2-18.0); LYMPHOCYTES % (AUTO) 16.9 % (20.0-45.0); MEAN CORPUSCULAR VOLUME 89 FL (80-99); MONOCYTES % (AUTO) 2.2 % (1.0-10.0); NEUTROPHILS % (AUTO) 80.4 % (45.0-75.0); PLATELET COUNT 121 K/UL (150-450); RED BLOOD COUNT 2.88 M/UL (4.70-6.10); RED CELL DISTRIBUTION WIDTH 16.2 % (11.6-14.8); WHITE BLOOD COUNT 9.6 K/UL (4.8-10.8)
[2019-03-29 04:52] LABS: ANION GAP 6 mmol/L (5-15); BLOOD UREA NITROGEN 18 mg/dL (7-18); CALCIUM 8.2 MG/DL (8.5-10.1); CARBON DIOXIDE 25 MMOL/L (21-32); CHLORIDE 107 MMOL/L (98-107); CREATININE 1.2 MG/DL (0.55-1.30); POTASSIUM 3.1 MMOL/L (3.5-5.1); SODIUM 138 MMOL/L (136-145)
--- NOTE | 2019-03-29 05:52 | NUR ---
NURSE NOTES: Seen by Dr. Womack and assessed patient. New order carried out.
[2019-03-29] MEDS: Piperacillin/Tazobactam 3.375 GM in NS 110 ML IVPB SCH ×3 (06:10→21:25)
--- NOTE | 2019-03-29 07:15 | NUR ---
NURSE NOTES: Received pt from CELINE Jacinto. Lightly sedated RASS -2. Orally intubated ETT 7.5/25cm at lip line, vent settings 16/600/40%/+5, Spo2 100%, RR 16. Moderate to large white/godwin secretions. Rhonchi heard bilateral b/s. Right nare NGT clamped and NPO since 0630am for EGD today. Abd soft and non-distended. Right femoral TLC running levophed@6mcg/kg/hr, D5NS@100cc/hr and Fentanyl@50mcg/kg/hr. Dressing on sacral clean and intact. Junctional rhythm on procurement representative; HR 54. Bed locked, alarmed and in lowest position. Will continue plan of care.
--- NOTE | 2019-03-29 07:24 | NUR ---
HAND-OFF: Report given to Chata Maya RN. Endorsed plan of care.
--- NOTE | 2019-03-29 07:24 | NUR ---
RESPIRATORY NOTE: received pt orally intubated with ETT 7.5, placed 24cm at the lip. ETT secured via anchor fast with no visible redness around facial area. pt is in no apparent resp distress at this time. pt is awake and alert and able to follow commands. alarms are on and audible with ambu bag at bedside. will attempt to wean later this morning. will cont to monitor
[2019-03-29] MEDS: Heparin 5000 units/ml inj SUBQ SCH ×2 (09:00→21:00)
--- NOTE | 2019-03-29 09:09 | NUR ---
RESPIRATORY NOTE: placed pt on CPAP PS8. no resp distress noted at this time. daughter at bedside to help sustainability coach pt to breathe deeply. pt doing well. RN notified. will draw ABG and relay results to RN and MD.
[2019-03-29] MEDS: Pantoprazole Inj IVP SCH (09:10)
[2019-03-29] MEDS: Ascorbic Acid 500mg tab ORAL SCH ×2 (09:10→17:59)
[2019-03-29] MEDS: Vancomycin 750mg/NS 275ml IVPB SCH ×4 (09:10→19:52)
[2019-03-29] MEDS: Zinc Sulfate 220mg cap ORAL SCH (09:10)
[2019-03-29] MEDS: Dakin's 0.125% Soln (Quarter Strength) 16oz TOPIC SCH (09:11)
--- NOTE | 2019-03-29 09:15 | Anethesia Preoperative Eval ---
Anesthesia Pre-op PMH/ROS General Date of Evaluation: Mar 29, 2019 Anesthesiologist: Kyrie ASA Score: ASA 4 Mallampati Score Class I : Soft palate, uvula, fauces, pillars visible Class II: Soft palate, uvula, fauces visible Class III: Soft palate, base of uvula visible Class IV: Only hard plate visible Mallampati Classification: Class III Surgeon: Melchor Diagnosis: GI bleed Surgical Procedure: EGD Anesthesia History: none Family History: no anesthesia problems Allergies: Coded Allergies: No Known Allergies (Unverified , 01/18/19) Medications: see eMAR Patient NPO?: Yes NPO Date: Mar 28, 2019 Past Medical History Cardiovascular: Reports: HTN; Denies: CAD, NC, valve dz, arrhythmia, other Pulmonary: Reports: other - PE; Denies: asthma, COPD, CIERA Gastrointestinal/Genitourinary: Denies: GERD, CRI, ESRD, other Neurologic/Psychiatric: Reports: dementia, CVA, depression/anxiety, other - schizophrenia, seiszures; Denies: TIA Endocrine: Denies: DM, hypothyroidism, steroids, other HEENT: Denies: cataract (L), cataract (R), glaucoma, [place] (L), [place] (R), other Hematology/Immune: Reports: anemia; Denies: DVT, bleeding disorder, other Musculoskeletal/Integumentary: Denies: OA, RA, DJD, DDD, edema, other PSxH Narrative: unable to assess Anesthesia Pre-op Phys. Exam Physician Exam Last Vital Signs Date Time Temp Pulse Resp B/P (MAP) Pulse Ox O2 Delivery O2 Flow Rate FiO2 03/29/19 09:10 100 03/29/19 09:04 70 11 40 03/29/19 08:00 Mechanical Ventilator 03/29/19 07:00 105/45 (65) 03/29/19 04:00 97.6 03/26/19 16:15 4.0 Constitutional: NAD, other - intubated, on mechanical ventilation Cardiovascular: RRR Respiratory: CTA Airway Exam Mallampati Score: Class III MO: limited ROM: limited Anesthesia Pre-op A/P Labs Hematology Test 03/29/19 04:00 White Blood Count 9.6 K/UL (4.8-10.8) Red Blood Count 2.88 M/UL (4.70-6.10) L Hemoglobin 8.1 G/DL (14.2-18.0) L Hematocrit 25.6 % (42.0-52.0) L Mean Corpuscular Volume 89 FL (80-99) Mean Corpuscular Hemoglobin 28.2 PG (27.0-31.0) Mean Corpuscular Hemoglobin Concent 31.7 G/DL (32.0-36.0) L Red Cell Distribution Width 16.2 % (11.6-14.8) H Platelet Count 121 K/UL (150-450) L Mean Platelet Volume 4.9 FL (6.5-10.1) L Neutrophils (%) (Auto) 80.4 % (45.0-75.0) H Lymphocytes (%) (Auto) 16.9 % (20.0-45.0) L Monocytes (%) (Auto) 2.2 % (1.0-10.0) Eosinophils (%) (Auto) 0.4 % (0.0-3.0) Basophils (%) (Auto) 0.1 % (0.0-2.0) Chemistry Test 03/28/19 15:00 03/29/19 04:00 Free Thyroxine 1.05 NG/DL (0.76-1.46) Triiodothyonine (T3) 48 ng/dL (71-180) L Free Triiodothyronine 0.5 pg/mL (2.3-4.2) L Triiodothyronine (T3) Uptake 34 % (24-39) Sodium Level 138 MMOL/L (136-145) Potassium Level 3.1 MMOL/L (3.5-5.1) L Chloride Level 107 MMOL/L (98-107) Carbon Dioxide Level 25 MMOL/L (21-32) Anion Gap 6 mmol/L (5-15) Blood Urea Nitrogen 18 mg/dL (7-18) Creatinine 1.2 MG/DL (0.55-1.30) Estimat Glomerular Filtration Rate mL/min (>60) Glucose Level 127 MG/DL (74-106) H Calcium Level 8.2 MG/DL (8.5-10.1) L Studies Pre-op Studies: EKG - sr Risk Assessment & Plan Assessment: ASA IV Plan: GA Status Change Before Surgery: No Pre-Antibiotics Drug: N/A Vee-Montana,Kay MD Mar 29, 2019 09:15
--- NOTE | 2019-03-29 09:48 | Hematology/Onc Progress Note ---
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 Favor scarring, but the possibility of neoplasm cannot be ruled out. 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, r/o mets --> patient is on pressors so hold off on diagnosis until more stable --> at some point will need a tissue diagnosis, as well as further w/u --> given advanced age, hold off on any extensive immediate care --> pulm has been consulted as well, before was on xarelto # DVT + Pulmonary embolism history could be related to mass/malignancy * HYPERCOAGULABLE DISORDER* --> on xarelto, okay to dc to snf on this --> Once ng placed, okay to restart xarelto --> heparin sq for dvt ppx # Leukocytosis is 2/2 septic shock with uti --> has been started on abx (vanc/zosyn) --> further w/u for altered mental status --> wbc 14-->19.7-->21-->9.6 # Iron Overload --> Ferrtin 1327 continue to monitor consider chelation therapy prior to blood tx. --> on iv iron # Renal insufficiency --> as per renal recs # Respiratory failure is on vent --> sbp per pulm # Hypotension on fluids now better --> abx and pressors # DVT ppx --> heparin sq The timing of this note does not necessarily reflect the time of the patient was seen. GREATLY APPRECIATE CONSULTATION. Subjective Allergies: Coded Allergies: No Known Allergies (Unverified , 01/18/19) Subjective 03/28: labs have been reviewed, hgb is less than 7, hgb 6.5, and prbc that has been ordered 03/29: in icu, on abx, no signs of distress, blood tx completed, labs reviewed Objective Objective Current Medications Medications (Trade) Dose Ordered Sig/Vaughn Route PRN Reason Start Time Stop Time Status Last Admin Dose Admin Acetaminophen (Tylenol) 650 mg Q4H PRN ORAL Mild Pain/Temp > 100.5 03/26/19 17:30 04/25/19 17:29 Albuterol/ Ipratropium (Albuterol/ Ipratropium) 3 ml Q4H PRN HHN Shortness of Breath 03/26/19 17:30 03/31/19 17:29 Ascorbic Acid (Vitamin C) 250 mg TWICE A DAY ORAL 03/27/19 18:00 04/26/19 17:59 03/29/19 09:10 Chlorhexidine Gluconate (Michelle-Hex 2%) 1 applic DAILY@2000 TOPIC 03/27/19 20:00 04/26/19 19:59 03/28/19 20:12 Dextrose/Sodium Chloride 1,000 ml @ 100 mls/hr Q10H IV 03/27/19 16:30 04/26/19 16:29 03/29/19 02:12 Fentanyl Citrate 1000 mcg/Sodium Chloride 100 ml @ 0 mls/hr Q24H IV 03/28/19 14:45 04/04/19 14:44 03/28/19 20:47 Heparin Sodium (Porcine) (Heparin 5000 units/ml) 5,000 units EVERY 12 HOURS SUBQ 03/27/19 09:00 04/26/19 08:59 03/27/19 20:29 Midazolam HCl (Versed 2mg/2ml vial) 1 mg Q2H PRN IVP For Anxiety 03/28/19 14:45 04/27/19 14:44 Midodrine (Pro-Amatine) 5 mg THREE TIMES A DAY ORAL 03/28/19 18:00 04/27/19 17:59 03/29/19 09:10 Norepinephrine Bitartrate 8 mg/ Dextrose 500 ml @ 0 mls/hr Q24H IV 03/27/19 07:00 04/26/19 06:59 03/28/19 09:30 Pantoprazole (Protonix) 40 mg DAILY IVP 03/27/19 09:00 04/26/19 08:59 03/29/19 09:10 Phenylephrine HCl 50 mg/Dextrose 250 ml @ 0 mls/hr Q24H IV 03/27/19 01:45 04/26/19 01:44 03/27/19 13:43 Piperacillin Sod/ Tazobactam Sod 3.375 gm/Sodium Chloride 110 ml @ 27.5 mls/hr EVERY 8 HOURS IVPB 03/26/19 22:00 03/31/19 21:59 03/29/19 06:10 Sodium Hypochlorite (Dakin's Quarter Strength) 1 applic DAILY TOPIC 03/28/19 00:00 04/27/19 00:00 03/29/19 09:11 Vancomycin HCl (Vanco rx to dose) 1 ea DAILY PRN MISC Per rx protocol 03/27/19 16:00 04/26/19 15:59 Vancomycin HCl 750 mg/Sodium Chloride 275 ml @ 183.333 mls/hr Q12HR@0800,2000 IVPB 03/29/19 08:00 04/03/19 07:59 03/29/19 09:10 Zinc Sulfate (Zinc Sulfate) 220 mg DAILY ORAL 03/28/19 09:00 04/27/19 08:59 03/29/19 09:10 Last 24 Hour Vital Signs Date Time Temp Pulse Resp B/P (MAP) Pulse Ox O2 Delivery O2 Flow Rate FiO2 03/29/19 09:10 100 03/29/19 09:04 70 11 40 03/29/19 08:00 40 03/29/19 08:00 Mechanical Ventilator 03/29/19 07:20 64 16 40 03/29/19 07:00 57 15 105/45 (65) 100 03/29/19 07:00 15 Mechanical Ventilator 40 03/29/19 07:00 105/45 03/29/19 06:30 57 16 114/45 (68) 100 03/29/19 06:00 57 16 100/43 (62) 100 03/29/19 06:00 16 Mechanical Ventilator 40 03/29/19 06:00 107/41 03/29/19 05:30 58 16 98/41 (60) 100 03/29/19 05:01 60 16 40 03/29/19 05:00 16 Mechanical Ventilator 40 03/29/19 05:00 101/42 03/29/19 05:00 58 16 99/45 (63) 100 03/29/19 04:30 110 16 96/44 (61) 100 03/29/19 04:00 Mechanical Ventilator 03/29/19 04:00 16 Mechanical Ventilator 40 03/29/19 04:00 73/36 03/29/19 04:00 59 03/29/19 04:00 97.6 113 16 73/36 (48) 100 03/29/19 04:00 40 03/29/19 03:00 73 18 111/60 (77) 100 03/29/19 03:00 16 Mechanical Ventilator 40 03/29/19 03:00 100/41 03/29/19 02:45 98 16 100/41 (60) 100 03/29/19 02:38 106 16 40 03/29/19 02:30 69 16 86/53 (64) 100 03/29/19 02:15 71 16 107/38 (61) 100 03/29/19 02:00 16 Mechanical Ventilator 40 03/29/19 02:00 107/38 03/29/19 02:00 62 16 99/42 (61) 100 03/29/19 01:30 80 16 102/45 (64) 100 03/29/19 01:20 16 Mechanical Ventilator 40 03/29/19 01:15 16 Mechanical Ventilator 40 03/29/19 01:10 16 Mechanical Ventilator 40 03/29/19 01:05 16 Mechanical Ventilator 40 03/29/19 01:00 129 16 122/79 (93) 100 03/29/19 01:00 16 Mechanical Ventilator 40 03/29/19 01:00 86/53 03/29/19 01:00 63 17 40 03/29/19 00:30 66 17 100/46 (64) 100 03/29/19 00:00 97.6 59 10 107/38 (61) 100 03/29/19 00:00 16 Mechanical Ventilator 40 03/29/19 00:00 112/58 03/29/19 00:00 78 03/29/19 00:00 Mechanical Ventilator 03/29/19 00:00 40 03/28/19 23:30 62 0 136/65 (88) 100 03/28/19 23:00 16 Mechanical Ventilator 40 03/28/19 23:00 100/41 03/28/19 23:00 67 15 100/46 (64) 100 03/28/19 22:49 59 16 40 03/28/19 22:30 58 16 111/45 (67) 100 03/28/19 22:00 16 Mechanical Ventilator 40 03/28/19 22:00 97/42 03/28/19 22:00 56 15 101/45 (63) 100 03/28/19 21:37 59 17 40 03/28/19 21:30 55 16 100/40 (60) 100 03/28/19 21:17 97.5 03/28/19 21:00 16 Mechanical Ventilator 40 03/28/19 21:00 112/45 03/28/19 21:00 58 16 108/59 (75) 100 03/28/19 20:47 16 Mechanical Ventilator 40 03/28/19 20:30 55 16 93/44 (60) 100 03/28/19 20:00 40 03/28/19 20:00 Mechanical Ventilator 03/28/19 20:00 107/47 03/28/19 20:00 97.5 65 16 121/48 (72) 100 03/28/19 20:00 58 03/28/19 19:00 60 16 108/46 (66) 100 03/28/19 19:00 108/46 03/28/19 18:45 58 16 40 03/28/19 18:30 62 16 100/47 (64) 100 03/28/19 18:00 110/57 03/28/19 18:00 67 16 110/57 (74) 100 03/28/19 17:30 88 21 146/66 (92) 100 03/28/19 17:29 98 21 40 03/28/19 17:00 58 16 97/38 (57) 100 03/28/19 17:00 107/51 03/28/19 17:00 70 18 107/51 (69) 100 03/28/19 16:30 97.2 72 21 112/41 (64) 100 03/28/19 16:00 115/55 03/28/19 16:00 Mechanical Ventilator 03/28/19 16:00 40 03/28/19 16:00 60 03/28/19 16:00 58 16 97/38 (57) 100 03/28/19 15:02 58 16 40 03/28/19 15:00 59 16 121/43 (69) 100 03/28/19 15:00 121/43 03/28/19 14:45 60 16 123/51 (75) 100 03/28/19 14:30 117 16 125/74 (91) 100 03/28/19 14:00 110/57 03/28/19 14:00 58 16 110/57 (74) 100 03/28/19 13:30 85 19 129/69 (89) 100 03/28/19 13:29 60 16 40 03/28/19 13:00 57 16 114/45 (68) 100 03/28/19 13:00 97/82 03/28/19 12:00 Mechanical Ventilator 03/28/19 12:00 103/57 03/28/19 12:00 40 03/28/19 12:00 97.5 61 16 103/57 (72) 100 03/28/19 11:25 59 03/28/19 11:00 117/47 03/28/19 11:00 61 16 117/47 (70) 100 03/28/19 10:54 57 16 40 03/28/19 10:00 112/45 03/28/19 10:00 61 13 112/45 (67) 100 03/28/19 09:30 59 12 91/38 (55) 100 03/28/19 09:30 120/45 03/28/19 09:30 63 12 91/38 (55) 100 03/28/19 09:04 63 13 40 40 03/28/19 09:03 100 03/28/19 09:00 61 11 120/45 (70) 100 03/28/19 09:00 123/47 03/28/19 09:00 64 12 123/47 (72) 100 03/28/19 08:30 98.1 60 13 116/49 (71) 100 03/28/19 08:30 63 12 117/58 (77) 100 03/28/19 08:00 40 03/28/19 08:00 66 16 116/42 (66) 100 03/28/19 08:00 61 03/28/19 08:00 116/42 03/28/19 08:00 Mechanical Ventilator 03/28/19 08:00 98.9 60 12 108/46 (66) 100 03/28/19 07:46 77 14 40 40 8/20/19 07:30 57 16 113/50 (71) 100 03/28/19 07:30 65 13 119/48 (71) 100 03/28/19 07:00 102/43 03/28/19 07:00 98.9 61 16 129/60 (83) 100 03/28/19 06:30 66 16 116/42 (66) 100 03/28/19 06:15 63 16 108/42 (64) 100 03/28/19 06:00 61 16 98/42 (60) 100 03/28/19 06:00 108/42 03/28/19 05:53 59 16 112/42 (65) 100 03/28/19 05:45 65 17 153/51 (85) 03/28/19 05:30 68 16 103/45 (64) 100 03/28/19 05:30 62 16 40 03/28/19 05:15 67 17 111/46 (67) 03/28/19 05:07 63 16 113/45 (67) 100 03/28/19 05:00 106 18 126/65 (85) 87 03/28/19 05:00 113/45 03/28/19 04:45 67 17 115/50 (71) 100 03/28/19 04:30 105 17 124/63 (83) 100 03/28/19 04:15 87 14 150/87 (108) 100 03/28/19 04:00 Mechanical Ventilator 03/28/19 04:00 40 03/28/19 04:00 150/87 03/28/19 04:00 60 16 129/49 (75) 100 03/28/19 04:00 62 03/28/19 03:45 64 17 123/45 (71) 100 03/28/19 03:30 60 15 121/47 (71) 100 03/28/19 03:15 62 16 120/47 (71) 100 03/28/19 03:10 67 16 40 03/28/19 03:00 59 16 119/44 (69) 100 03/28/19 03:00 120/47 03/28/19 02:45 61 16 115/44 (67) 100 03/28/19 02:30 65 17 114/52 (72) 100 03/28/19 02:15 62 16 113/46 (68) 100 03/28/19 02:00 118/47 03/28/19 02:00 66 18 118/47 (70) 100 03/28/19 01:45 61 16 118/41 (66) 100 03/28/19 01:30 62 16 40 03/28/19 01:30 61 16 117/47 (70) 100 03/28/19 01:15 65 17 115/46 (69) 100 03/28/19 01:00 62 16 112/50 (70) 100 03/28/19 01:00 115/46 03/28/19 00:45 66 16 118/43 (68) 100 03/28/19 00:34 106/44 03/28/19 00:30 64 16 97/52 (67) 100 03/28/19 00:15 60 16 106/44 (64) 100 03/28/19 00:00 64 17 103/52 (69) 100 03/28/19 00:00 40 03/28/19 00:00 64 03/28/19 00:00 106/44 03/28/19 00:00 Mechanical Ventilator 03/27/19 23:45 63 16 90/36 (54) 100 03/27/19 23:30 65 17 114/62 (79) 100 03/27/19 23:30 66 16 40 03/27/19 23:15 64 16 108/45 (66) 100 03/27/19 23:00 115/44 03/27/19 23:00 66 17 115/44 (67) 100 03/27/19 22:45 64 17 108/43 (64) 100 03/27/19 22:30 57 14 97/39 (58) 100 03/27/19 22:15 64 16 112/47 (68) 100 03/27/19 22:00 63 16 108/48 (68) 100 03/27/19 22:00 112/47 03/27/19 21:45 67 17 103/44 (63) 100 03/27/19 21:30 61 16 103/44 (63) 100 03/27/19 21:20 61 16 40 03/27/19 21:15 61 16 113/45 (67) 100 03/27/19 21:00 66 16 117/49 (71) 100 03/27/19 21:00 113/45 03/27/19 20:45 62 16 113/46 (68) 100 03/27/19 20:30 67 16 104/43 (63) 100 03/27/19 20:15 62 16 129/56 (80) 100 03/27/19 20:00 40 03/27/19 20:00 60 03/27/19 20:00 129/56 03/27/19 20:00 60 16 119/47 (71) 100 03/27/19 20:00 Mechanical Ventilator 03/27/19 19:30 59 16 40 03/27/19 19:00 146/44 03/27/19 19:00 65 16 131/51 (77) 100 03/27/19 18:30 153/49 03/27/19 18:00 147/52 03/27/19 18:00 65 16 155/54 (87) 100 03/27/19 17:30 65 16 144/51 (82) 100 03/27/19 17:15 69 17 88/53 (65) 100 03/27/19 17:00 72 17 40 03/27/19 17:00 116/61 03/27/19 17:00 81 16 137/45 (75) 100 03/27/19 16:45 66 16 145/51 (82) 100 03/27/19 16:45 74 16 116/61 (79) 100 03/27/19 16:30 109 16 104/86 (92) 100 03/27/19 16:23 148/52 03/27/19 16:15 65 16 134/55 (81) 100 03/27/19 16:00 40 03/27/19 16:00 64 03/27/19 16:00 148/52 03/27/19 16:00 97.1 66 16 148/62 (90) 100 03/27/19 16:00 Mechanical Ventilator 03/27/19 15:45 66 16 145/51 (82) 100 03/27/19 15:30 77 16 126/50 (75) 100 03/27/19 15:15 65 16 86/48 (61) 100 03/27/19 15:07 59 16 40 03/27/19 15:00 121 16 136/49 (78) 100 03/27/19 14:45 109 18 136/49 (78) 100 03/27/19 14:30 119 24 107/41 (63) 100 03/27/19 14:00 71 16 113/55 (74) 100 03/27/19 13:45 91 16 67/53 (58) 100 03/27/19 13:43 66 141/57 03/27/19 13:30 69 16 69/48 (55) 100 03/27/19 13:20 71 16 40 03/27/19 13:15 116 16 149/62 (91) 100 03/27/19 13:00 68 16 147/64 (91) 100 03/27/19 12:45 69 16 116/64 (81) 100 03/27/19 12:30 68 15 153/53 (86) 100 03/27/19 12:15 71 14 134/48 (76) 100 03/27/19 12:00 40 03/27/19 12:00 Mechanical Ventilator 03/27/19 12:00 139/55 03/27/19 12:00 74 03/27/19 12:00 99.2 70 17 139/55 (83) 100 03/27/19 11:45 102 17 137/53 (81) 100 03/27/19 11:30 70 17 153/56 (88) 100 03/27/19 11:15 111 18 78/49 (59) 100 03/27/19 11:00 76 17 108/57 (74) 100 03/27/19 11:00 108/57 03/27/19 10:59 72 16 40 03/27/19 10:45 76 17 108/57 (74) 100 03/27/19 10:15 74 16 126/57 (80) 100 03/27/19 10:00 91 16 112/51 (71) 100 03/27/19 10:00 112/51 03/27/19 09:45 91 16 112/51 (71) 100 Intake and Output 03/28/19 03/29/19 19:00 07:00 Intake Total 2081.208 ml 2211.192 ml Output Total 1270 ml 755 ml Balance 811.208 ml 1456.192 ml Intake Free Water 100 ml 100 ml IV Total 1721.208 ml 1516.192 ml Tube Feeding 260 ml 595 ml Output Urine Total 1270 ml 755 ml # Bowel Movements 2 1 Labs Test 03/26/19 11:25 03/26/19 13:50 03/26/19 15:00 03/26/19 16:48 Urine Color Anitha Urine Appearance Slightly cloudy Urine pH 5 (4.5-8.0) Urine Specific [place] 1.015 (1.005-1.035) Urine Protein 2+ (NEGATIVE) Urine Glucose (UA) Negative (NEGATIVE) Urine Ketones Negative (NEGATIVE) Urine Blood 1+ (NEGATIVE) Urine Nitrite Negative (NEGATIVE) Urine Bilirubin Negative (NEGATIVE) Urine Ictotest Negative (NEGATIVE) Urine Urobilinogen 1 MG/DL (0.0-1.0) Urine Leukocyte Esterase 1+ (NEGATIVE) Urine RBC 2-4 /HPF (0 - 0) Urine WBC 5-10 /HPF (0 - 0) Urine Squamous Epithelial Cells Moderate /LPF (NONE/OCC) Urine Amorphous Sediment Moderate /LPF (NONE) Urine Bacteria Few /HPF (NONE) White Blood Count 13.5 K/UL (4.8-10.8) Red Blood Count 3.15 M/UL (4.70-6.10) Hemoglobin 9.0 G/DL (14.2-18.0) Hematocrit 28.3 % (42.0-52.0) Mean Corpuscular Volume 90 FL (80-99) Mean Corpuscular Hemoglobin 28.5 PG (27.0-31.0) Mean Corpuscular Hemoglobin Concent 31.6 G/DL (32.0-36.0) Red Cell Distribution Width 16.7 % (11.6-14.8) Platelet Count 153 K/UL (150-450) Mean Platelet Volume 5.3 FL (6.5-10.1) Neutrophils (%) (Auto) % (45.0-75.0) Lymphocytes (%) (Auto) % (20.0-45.0) Monocytes (%) (Auto) % (1.0-10.0) Eosinophils (%) (Auto) % (0.0-3.0) Basophils (%) (Auto) % (0.0-2.0) Differential Total Cells Counted 100 Neutrophils % (Manual) 80 % (45-75) Lymphocytes % (Manual) 11 % (20-45) Monocytes % (Manual) 2 % (1-10) Eosinophils % (Manual) 0 % (0-3) Basophils % (Manual) 0 % (0-2) Band Neutrophils 7 % (0-8) Platelet Estimate Adequate Platelet Morphology Normal Hypochromasia 1+ Anisocytosis 1+ Sodium Level 144 MMOL/L (136-145) Potassium Level 4.0 MMOL/L (3.5-5.1) Chloride Level 113 MMOL/L (98-107) Carbon Dioxide Level 24 MMOL/L (21-32) Anion Gap 7 mmol/L (5-15) Blood Urea Nitrogen 17 mg/dL (7-18) Creatinine 1.1 MG/DL (0.55-1.30) Estimat Glomerular Filtration Rate mL/min (>60) Glucose Level 71 MG/DL (74-106) Lactic Acid Level 3.20 mmol/L (0.4-2.0) 2.60 mmol/L (0.66-2.22) Calcium Level 8.9 MG/DL (8.5-10.1) Total Bilirubin 0.4 MG/DL (0.2-1.0) Aspartate Amino Transf (AST/SGOT) 17 U/L (15-37) Alanine Aminotransferase (ALT/SGPT) < 6 U/L (12-78) Alkaline Phosphatase 76 U/L (46-116) Total Creatine Kinase 47 U/L (26-308) Creatine Kinase MB 5.1 NG/ML (0.0-3.6) Creatine Kinase MB Relative Index 10.8 Troponin I 0.000 ng/mL (0.000-0.056) Pro-B-Type Natriuretic Peptide 2858 pg/mL (0-125) Total Protein 6.7 G/DL (6.4-8.2) Albumin 1.2 G/DL (3.4-5.0) Globulin 5.5 g/dL Albumin/Globulin Ratio 0.2 (1.0-2.7) Arterial Blood pH 7.385 (7.350-7.450) Arterial Blood Partial Pressure CO2 43.1 mmHg (35.0-45.0) Arterial Blood Partial Pressure O2 55.9 mmHg (75.0-100.0) Arterial Blood HCO3 25.2 mmol/L (22.0-26.0) Arterial Blood Oxygen Saturation 88.3 % (95-100) Arterial Blood Base Excess 0.1 (-2-2) Cristofer Test Positive Test 03/26/19 18:50 03/26/19 20:20 03/26/19 23:10 03/27/19 03:00 Arterial Blood pH 7.462 (7.350-7.450) Arterial Blood Partial Pressure CO2 29.0 mmHg (35.0-45.0) Arterial Blood Partial Pressure O2 411.3 mmHg (75.0-100.0) Arterial Blood HCO3 20.3 mmol/L (22.0-26.0) Arterial Blood Oxygen Saturation 99.3 % (95-100) Arterial Blood Base Excess -2.8 (-2-2) Cristofer Test Positive White Blood Count 21.0 K/UL (4.8-10.8) Red Blood Count 2.92 M/UL (4.70-6.10) Hemoglobin 8.4 G/DL (14.2-18.0) Hematocrit 25.5 % (42.0-52.0) Mean Corpuscular Volume 88 FL (80-99) Mean Corpuscular Hemoglobin 28.8 PG (27.0-31.0) Mean Corpuscular Hemoglobin Concent 32.9 G/DL (32.0-36.0) Red Cell Distribution Width 15.9 % (11.6-14.8) Platelet Count 187 K/UL (150-450) Mean Platelet Volume 4.9 FL (6.5-10.1) Neutrophils (%) (Auto) % (45.0-75.0) Lymphocytes (%) (Auto) % (20.0-45.0) Monocytes (%) (Auto) % (1.0-10.0) Eosinophils (%) (Auto) % (0.0-3.0) Basophils (%) (Auto) % (0.0-2.0) D-Dimer 3.16 mg/L FEU (0.00-0.49) Sodium Level 140 MMOL/L (136-145) Potassium Level 3.7 MMOL/L (3.5-5.1) Chloride Level 106 MMOL/L (98-107) Carbon Dioxide Level 25 MMOL/L (21-32) Anion Gap 9 mmol/L (5-15) Blood Urea Nitrogen 18 mg/dL (7-18) Creatinine 1.2 MG/DL (0.55-1.30) Estimat Glomerular Filtration Rate mL/min (>60) Glucose Level 111 MG/DL (74-106) Lactic Acid Level 3.00 mmol/L (0.4-2.0) 5.10 mmol/L (0.66-2.22) Calcium Level 8.8 MG/DL (8.5-10.1) Phosphorus Level 3.3 MG/DL (2.5-4.9) Magnesium Level 1.5 MG/DL (1.8-2.4) Pro-B-Type Natriuretic Peptide 9191 pg/mL (0-125) Test 03/27/19 03:50 03/27/19 07:15 03/27/19 08:30 03/27/19 15:45 White Blood Count 21.4 K/UL (4.8-10.8) Red Blood Count 2.93 M/UL (4.70-6.10) Hemoglobin 8.3 G/DL (14.2-18.0) Hematocrit 26.3 % (42.0-52.0) Mean Corpuscular Volume 90 FL (80-99) Mean Corpuscular Hemoglobin 28.3 PG (27.0-31.0) Mean Corpuscular Hemoglobin Concent 31.5 G/DL (32.0-36.0) Red Cell Distribution Width 16.6 % (11.6-14.8) Platelet Count 203 K/UL (150-450) Mean Platelet Volume 5.4 FL (6.5-10.1) Neutrophils (%) (Auto) % (45.0-75.0) Lymphocytes (%) (Auto) % (20.0-45.0) Monocytes (%) (Auto) % (1.0-10.0) Eosinophils (%) (Auto) % (0.0-3.0) Basophils (%) (Auto) % (0.0-2.0) Differential Total Cells Counted 100 Neutrophils % (Manual) 92 % (45-75) Lymphocytes % (Manual) 5 % (20-45) Monocytes % (Manual) 0 % (1-10) Eosinophils % (Manual) 0 % (0-3) Basophils % (Manual) 0 % (0-2) Band Neutrophils 3 % (0-8) Platelet Estimate Adequate Platelet Morphology Normal Hypochromasia 1+ Anisocytosis 1+ Sodium Level 139 MMOL/L (136-145) Potassium Level 3.9 MMOL/L (3.5-5.1) Chloride Level 105 MMOL/L (98-107) Carbon Dioxide Level 23 MMOL/L (21-32) Anion Gap 11 mmol/L (5-15) Blood Urea Nitrogen 18 mg/dL (7-18) Creatinine 1.3 MG/DL (0.55-1.30) Estimat Glomerular Filtration Rate mL/min (>60) Glucose Level 126 MG/DL (74-106) Calcium Level 8.5 MG/DL (8.5-10.1) Troponin I 0.048 ng/mL (0.000-0.056) Lactic Acid Level 2.70 mmol/L (0.4-2.0) 2.60 mmol/L (0.66-2.22) 3.60 mmol/L (0.4-2.0) Thyroid Stimulating Hormone (TSH) 22.269 uiU/mL (0.358-3.740) Cortisol 12.6 UG/DL Test 03/27/19 23:00 03/28/19 03:37 03/28/19 07:25 03/28/19 10:18 Lactic Acid Level 1.80 mmol/L (0.4-2.0) White Blood Count 12.8 K/UL (4.8-10.8) 12.1 K/UL (4.8-10.8) Red Blood Count 2.37 M/UL (4.70-6.10) 2.34 M/UL (4.70-6.10) Hemoglobin 6.7 G/DL (14.2-18.0) 6.5 G/DL (14.2-18.0) Hematocrit 20.9 % (42.0-52.0) 20.8 % (42.0-52.0) Mean Corpuscular Volume 88 FL (80-99) 89 FL (80-99) Mean Corpuscular Hemoglobin 28.3 PG (27.0-31.0) 27.9 PG (27.0-31.0) Mean Corpuscular Hemoglobin Concent 32.1 G/DL (32.0-36.0) 31.5 G/DL (32.0-36.0) Red Cell Distribution Width 16.6 % (11.6-14.8) 16.5 % (11.6-14.8) Platelet Count 119 K/UL (150-450) 124 K/UL (150-450) Mean Platelet Volume 5.0 FL (6.5-10.1) 5.0 FL (6.5-10.1) Neutrophils (%) (Auto) % (45.0-75.0) % (45.0-75.0) Lymphocytes (%) (Auto) % (20.0-45.0) % (20.0-45.0) Monocytes (%) (Auto) % (1.0-10.0) % (1.0-10.0) Eosinophils (%) (Auto) % (0.0-3.0) % (0.0-3.0) Basophils (%) (Auto) % (0.0-2.0) % (0.0-2.0) Differential Total Cells Counted 100 100 Neutrophils % (Manual) 81 % (45-75) 81 % (45-75) Lymphocytes % (Manual) 19 % (20-45) 17 % (20-45) Monocytes % (Manual) 0 % (1-10) 1 % (1-10) Eosinophils % (Manual) 0 % (0-3) 1 % (0-3) Basophils % (Manual) 0 % (0-2) 0 % (0-2) Band Neutrophils 0 % (0-8) 0 % (0-8) Platelet Estimate Decreased Decreased Platelet Morphology Normal Normal Hypochromasia 1+ 1+ Anisocytosis 1+ 1+ Erythrocyte Sedimentation Rate 140 MM/HR (0-20) Prothrombin Time 12.6 SEC (9.30-11.50) Prothromb Time International Ratio 1.2 (0.9-1.1) Activated Partial Thromboplast Time 45 SEC (23-33) Sodium Level 139 MMOL/L (136-145) Potassium Level 3.6 MMOL/L (3.5-5.1) Chloride Level 106 MMOL/L (98-107) Carbon Dioxide Level 24 MMOL/L (21-32) Anion Gap 9 mmol/L (5-15) Blood Urea Nitrogen 18 mg/dL (7-18) Creatinine 1.4 MG/DL (0.55-1.30) Estimat Glomerular Filtration Rate mL/min (>60) Glucose Level 113 MG/DL (74-106) Calcium Level 8.3 MG/DL (8.5-10.1) Total Bilirubin 0.4 MG/DL (0.2-1.0) Aspartate Amino Transf (AST/SGOT) 21 U/L (15-37) Alanine Aminotransferase (ALT/SGPT) 7 U/L (12-78) Alkaline Phosphatase 76 U/L (46-116) C-Reactive Protein, Quantitative 27.4 mg/dL (0.00-0.90) Total Protein 6.1 G/DL (6.4-8.2) Albumin 1.0 G/DL (3.4-5.0) Globulin 5.1 g/dL Albumin/Globulin Ratio 0.2 (1.0-2.7) Arterial Blood pH 7.443 (7.350-7.450) Arterial Blood Partial Pressure CO2 33.9 mmHg (35.0-45.0) Arterial Blood Partial Pressure O2 160.7 mmHg (75.0-100.0) Arterial Blood HCO3 22.7 mmol/L (22.0-26.0) Arterial Blood Oxygen Saturation 99.1 % (95-100) Arterial Blood Base Excess -1.2 (-2-2) Cristofer Test Positive Test 03/28/19 15:00 03/29/19 03:47 03/29/19 04:00 Free Thyroxine 1.05 NG/DL (0.76-1.46) Triiodothyonine (T3) 48 ng/dL (71-180) Free Triiodothyronine 0.5 pg/mL (2.3-4.2) Triiodothyronine (T3) Uptake 34 % (24-39) HIV (1&2) Antibody Rapid Negative (NEGATIVE) White Blood Count 9.6 K/UL (4.8-10.8) Red Blood Count 2.88 M/UL (4.70-6.10) Hemoglobin 8.1 G/DL (14.2-18.0) Hematocrit 25.6 % (42.0-52.0) Mean Corpuscular Volume 89 FL (80-99) Mean Corpuscular Hemoglobin 28.2 PG (27.0-31.0) Mean Corpuscular Hemoglobin Concent 31.7 G/DL (32.0-36.0) Red Cell Distribution Width 16.2 % (11.6-14.8) Platelet Count 121 K/UL (150-450) Mean Platelet Volume 4.9 FL (6.5-10.1) Neutrophils (%) (Auto) 80.4 % (45.0-75.0) Lymphocytes (%) (Auto) 16.9 % (20.0-45.0) Monocytes (%) (Auto) 2.2 % (1.0-10.0) Eosinophils (%) (Auto) 0.4 % (0.0-3.0) Basophils (%) (Auto) 0.1 % (0.0-2.0) Sodium Level 138 MMOL/L (136-145) Potassium Level 3.1 MMOL/L (3.5-5.1) Chloride Level 107 MMOL/L (98-107) Carbon Dioxide Level 25 MMOL/L (21-32) Anion Gap 6 mmol/L (5-15) Blood Urea Nitrogen 18 mg/dL (7-18) Creatinine 1.2 MG/DL (0.55-1.30) Estimat Glomerular Filtration Rate mL/min (>60) Glucose Level 127 MG/DL (74-106) Calcium Level 8.2 MG/DL (8.5-10.1) Vancomycin Level Trough 20.8 ug/mL (5.0-12.0) Height (Feet): 6 Height (Inches): 2.00 Weight (Pounds): 179 Objective PE General: severe distress, chronically Ill ENT: moist mucus membranes Neck: limited range of motion Respiratory: respiratory distress, rhonch ++ vent Cardiovascular: RRr, no mgr Gastrointestinal: normal inspection, soft Msk: normal inspection Neuro: responsive, motor weakness Skin: no rash Jake Womack MD Mar 29, 2019 09:48
--- NOTE | 2019-03-29 09:50 | GI Initial Consult Note ---
History of Present Illness General Date patient seen: Mar 29, 2019 Time patient seen: 09:44 Reason for Hospitalization: Dyspnea/Respdistress Referring physician: ASHLEY Reason for Consultation: ANEMIA Present Illness HPI Patient presents by paramedics from nursing facility patient was found by family to be Increasingly short of breath. Patient has had recent hospitalization for pneumonia family denies any vomiting or diarrhea It appeared that he was more swollen than usual to the family patient himself is nonverbal and cannot provide any history Family reports that he is usually more talkative and awake and alert No obvious fevers documented recently GI consulted for anemia to r/o GI bleed. ROS limited, patient intubated in ICU with family at bedside NAD. Patient planned for extubation, but concerns for anemia 2/2 to GI bleed and low Hgb at 6.5 s/p 1 unit with Hgb now at 8.1. Occult blood stool x2 still pending. Unknown history of endoscopy or colonoscopy. Home Meds Reported Medications Amino Acids/Protein Hydrolys (PRO-STAT LIQUID) 30 Ml Liquid.pkt, 30 ML ORAL THREE TIMES A DAY, ML 03/26/19 Ipratropium [place] 0.5MG/2.5ML (IPRATROPIUM BROMIDE 0.5MG/2.5ML) 0.2 Mg/1 Ml Solution, 0.5 MG HHN Q6H PRN for Shortness of Breath 03/26/19 Megestrol Acetate (Megestrol Acetate) 400 Mg/10 Ml Oral.susp, 400 MG PO BID, ML 02/17/19 Acetaminophen* (ACETAMINOPHEN 325MG TABLET*) 325 Mg Tablet, 650 MG ORAL Q4H PRN for Mild Pain (Pain Scale 1-3) ADMINISTER AT LEAST 30 MINUTES PRIOR TO WOUND CARE 02/17/19 Metoprolol Tartrate* (METOPROLOL TARTRATE*) 50 Mg Tablet, 50 MG ORAL DAILY, TAB hold if <sbp 110 or hr <60 02/17/19 Lisinopril* (LISINOPRIL*) 10 Mg Tablet, 10 MG ORAL DAILY, TAB hold if sbp <110 02/17/19 Rivaroxaban (XARELTO) 15 Mg Tablet, 15 MG ORAL DAILY for 30 Days, MG 0 Refills 01/24/19 Midodrine (Midodrine HCl) 10 Mg Tablet, 10 MG ORAL THREE TIMES A DAY, TAB hold for sbp >140 01/24/19 Temazepam (TEMAZEPAM*) 15 Mg Capsule, 15 MG ORAL BEDTIME PRN for SLEEP 01/19/19 Risperidone* (RISPERDAL*) 0.5 Mg Tablet, 0.5 MG ORAL DAILY 01/19/19 Magnesium Hydroxide* (MILK OF MAGNESIA*) 2,400 Mg/10 Ml Oral.susp, 30 ML ORAL DAILY PRN for Constipation, ML 01/19/19 Ferrous Sulfate (FERROUS SULFATE) 325 Mg Tablet.dr, 325 MG ORAL BID 01/19/19 Divalproex Sodium (DIVALPROEX SODIUM) 250 Mg Tablet.dr, 250 MG PO Q8HR, TAB 01/19/19 Docusate Sodium* (COLACE*) 100 Mg Capsule, 100 MG ORAL BID HOLD FOR LBM 01/19/19 Discontinued Reported Medications Vancomycin In Dextrose,Iso-Osm (VANCOMYCIN 750 MG/150 ML BAG) 750 Mg/150 Ml Froz.piggy, 750 MG IV DAILY for 4 Days, BAG 02/21/19 Toakacdpaurm-Aadu-Lgbikdso,Iso (ZOSYN 3.375 GM PRE MIX-BAG) 3.375 Gm/50 Ml Froz.piggy, 3.375 GM IVPB EVERY 8 HOURS for 5 Days, BAG 02/21/19 Ofncmkzfyago-Kacf-Qsnvvfbu,Iso (ZOSYN 3.375 GM PRE MIX-BAG) 3.375 Gm/50 Ml Froz.piggy, 3.375 GM IVPB EVERY 8 HOURS for 5 Days, BAG 02/21/19 Zinc Sulfate (ZINC SULFATE*) 220 Mg Capsule, 220 MG ORAL DAILY, CAP 0 Refills 02/17/19 Ascorbic Acid (VITAMIN C) 500 Mg Tab.chew, 500 MG PO BID, TAB 01/19/19 Multivitamin With Minerals (MULTIVITAMINS WITH MINERALS*) 1 Each Tablet, 1 TAB ORAL DAILY, TAB 01/19/19 Med list reviewed/reconciled: Yes Allergies: Coded Allergies: No Known Allergies (Unverified , 01/18/19) Patient History Limited by: medical condition History Provided By: Medical Record PMH Narrative Limited by: medical condition Past Medical History: see triage record Reviewed Nursing Documentation: PMH: Agreed; PSxH: Agreed Nursing Documentation-PMH Past Medical History: No History, Except For Hx Cardiac Problems: No - PE Hx Hypertension: Yes - hypotension too Hx Cancer: No Hx Gastrointestinal Problems: No History Of Psychiatric Problem: No - Schizophrenia Hx Neurological Problems: Yes Hx Cerebrovascular Accident: Yes - Encephalopathy, anemia Hx Dementia: Yes Hx Seizures: Yes Review of Systems All Other Systems: limited Physical Exam Vital Signs Date Time Temp Pulse Resp B/P (MAP) Pulse Ox O2 Delivery O2 Flow Rate FiO2 03/26/19 12:07 94.6 54 17 109/53 (71) 91 Nasal Cannula 4.0 03/26/19 17:46 50 Sp02 EP Interpretation: reviewed Labs Laboratory Tests Test 03/28/19 10:18 03/28/19 15:00 03/29/19 03:47 03/29/19 04:00 Arterial Blood pH 7.443 (7.350-7.450) Arterial Blood Partial Pressure CO2 33.9 mmHg (35.0-45.0) L Arterial Blood Partial Pressure O2 160.7 mmHg (75.0-100.0) H Arterial Blood HCO3 22.7 mmol/L (22.0-26.0) Arterial Blood Oxygen Saturation 99.1 % (95-100) Arterial Blood Base Excess -1.2 (-2-2) Cristofer Test Positive Stool Occult Blood Pending Pending Free Thyroxine 1.05 NG/DL (0.76-1.46) Triiodothyonine (T3) 48 ng/dL (71-180) L Free Triiodothyronine 0.5 pg/mL (2.3-4.2) L Triiodothyronine (T3) Uptake 34 % (24-39) Hepatitis A IgM Antibody Pending Hepatitis B Surface Antigen Pending Hepatitis B Core IgM Antibody Pending Hepatitis C Antibody Pending HIV (1&2) Antibody Rapid Negative (NEGATIVE) White Blood Count 9.6 K/UL (4.8-10.8) Red Blood Count 2.88 M/UL (4.70-6.10) L Hemoglobin 8.1 G/DL (14.2-18.0) L Hematocrit 25.6 % (42.0-52.0) L Mean Corpuscular Volume 89 FL (80-99) Mean Corpuscular Hemoglobin 28.2 PG (27.0-31.0) Mean Corpuscular Hemoglobin Concent 31.7 G/DL (32.0-36.0) L Red Cell Distribution Width 16.2 % (11.6-14.8) H Platelet Count 121 K/UL (150-450) L Mean Platelet Volume 4.9 FL (6.5-10.1) L Neutrophils (%) (Auto) 80.4 % (45.0-75.0) H Lymphocytes (%) (Auto) 16.9 % (20.0-45.0) L Monocytes (%) (Auto) 2.2 % (1.0-10.0) Eosinophils (%) (Auto) 0.4 % (0.0-3.0) Basophils (%) (Auto) 0.1 % (0.0-2.0) Sodium Level 138 MMOL/L (136-145) Potassium Level 3.1 MMOL/L (3.5-5.1) L Chloride Level 107 MMOL/L (98-107) Carbon Dioxide Level 25 MMOL/L (21-32) Anion Gap 6 mmol/L (5-15) Blood Urea Nitrogen 18 mg/dL (7-18) Creatinine 1.2 MG/DL (0.55-1.30) Estimat Glomerular Filtration Rate mL/min (>60) Glucose Level 127 MG/DL (74-106) H Calcium Level 8.2 MG/DL (8.5-10.1) L Vancomycin Level Trough 20.8 ug/mL (5.0-12.0) H General Appearance: no apparent distress Head: normocephalic EENT: normal ENT inspection Neck: supple Respiratory: other - intubated Cardiovascular: normal rate Neurologic: alert, responsive Skin: normal inspection, normal color, no rash, warm/dry Lymphatic: normal inspection, no adenopathy Current Medications Current Medications Medications (Trade) Dose Ordered Sig/Vaughn Route PRN Reason Start Time Stop Time Status Last Admin Dose Admin Acetaminophen (Tylenol) 650 mg Q4H PRN ORAL Mild Pain/Temp > 100.5 03/26/19 17:30 04/25/19 17:29 Albuterol/ Ipratropium (Albuterol/ Ipratropium) 3 ml Q4H PRN HHN Shortness of Breath 03/26/19 17:30 03/31/19 17:29 Ascorbic Acid (Vitamin C) 250 mg TWICE A DAY ORAL 03/27/19 18:00 04/26/19 17:59 03/29/19 09:10 Chlorhexidine Gluconate (Michelle-Hex 2%) 1 applic DAILY@1999 TOPIC 03/27/19 20:00 04/26/19 19:59 03/28/19 20:12 Dextrose/Sodium Chloride 1,000 ml @ 100 mls/hr Q10H IV 03/27/19 16:30 04/26/19 16:29 03/29/19 02:12 Fentanyl Citrate 1000 mcg/Sodium Chloride 100 ml @ 0 mls/hr Q24H IV 03/28/19 14:45 04/04/19 14:44 03/28/19 20:47 Heparin Sodium (Porcine) (Heparin 5000 units/ml) 5,000 units EVERY 12 HOURS SUBQ 03/27/19 09:00 04/26/19 08:59 03/27/19 20:29 Midazolam HCl (Versed 2mg/2ml vial) 1 mg Q2H PRN IVP For Anxiety 03/28/19 14:45 04/27/19 14:44 Midodrine (Pro-Amatine) 5 mg THREE TIMES A DAY ORAL 03/28/19 18:00 04/27/19 17:59 03/29/19 09:10 Norepinephrine Bitartrate 8 mg/ Dextrose 500 ml @ 0 mls/hr Q24H IV 03/27/19 07:00 04/26/19 06:59 03/28/19 09:30 Pantoprazole (Protonix) 40 mg DAILY IVP 03/27/19 09:00 04/26/19 08:59 03/29/19 09:10 Phenylephrine HCl 50 mg/Dextrose 250 ml @ 0 mls/hr Q24H IV 03/27/19 01:45 04/26/19 01:44 03/27/19 13:43 Piperacillin Sod/ Tazobactam Sod 3.375 gm/Sodium Chloride 110 ml @ 27.5 mls/hr EVERY 8 HOURS IVPB 03/26/19 22:00 03/31/19 21:59 03/29/19 06:10 Sodium Hypochlorite (Dakin's Quarter Strength) 1 applic DAILY TOPIC 03/28/19 00:00 04/27/19 00:00 03/29/19 09:11 Vancomycin HCl (Vanco rx to dose) 1 ea DAILY PRN MISC Per rx protocol 03/27/19 16:00 04/26/19 15:59 Vancomycin HCl 750 mg/Sodium Chloride 275 ml @ 183.333 mls/hr Q12HR@0800,2000 IVPB 03/29/19 08:00 04/03/19 07:59 03/29/19 09:10 Zinc Sulfate (Zinc Sulfate) 220 mg DAILY ORAL 03/28/19 09:00 04/27/19 08:59 03/29/19 09:10 GI: Plan Problems: (1) Anemia (2) GI bleed (3) Electrolyte abnormality Plan EGD scheduled for today. maintain NPO + IVFs replace K prn transfusions ppi will follow with additional recommendations post procedure Discussed with Dr. Roche. Thank you for this patient referral, we will follow. The patient was seen and examined at bedside and all new and available data was reviewed in the patients chart. I agree with the above findings, impression and plan. (Patient seen earlier today. Signature stamp does not reflect patient encounter time.). - MD Ruthann Card[facility] [employer] Mar 29, 2019 09:50
--- NOTE | 2019-03-29 10:02 | Pre-Procedure Note/Attestation ---
Pre-Procedure Note/Attestation Complete Prior to Procedure Planned Procedure: not applicable Procedure Narrative: esophagogastroduodenoscopy and colonoscopy Indications for Procedure Pre-Operative Diagnosis: gib Attestation I attest that I discussed the nature of the procedure; its benefits; risks and complications; and alternatives (and the risks and benefits of such alternatives ), prior to the procedure, with the patient (or the patient's legal financial services sales representative). I attest that, if there was a reasonable possibility of needing a blood transfusion, the patient (or the patient's legal financial services sales representative) was given the [facility] standardized written summary, pursuant to the Matthew Elif Blood Safety Act ([place] Health and Safety Code # 1645, as amended). I attest that I re-evaluated the patient just prior to the surgery and that there has been no change in the patient's H&P, except as documented below: Sergei Roche MD Mar 29, 2019 10:02
[2019-03-29] MEDS: Norepinephrine Bitartrate 8 MG in D5W 500ml 492 ML IV SCH (10:09)
[2019-03-29] MEDS ORDERED: NS 500ML IVPB ONE (10:20)
--- NOTE | 2019-03-29 10:26 | NUR ---
RESPIRATORY NOTE: placed back on AC mode at 1015 due to apnea alarm and bedside procedure. will cont to monitor
[2019-03-29] MEDS ORDERED: Lidocaine 1% MPF 10mg/ml 5ml ONE (10:30)
[2019-03-29] MEDS ORDERED: Propofol 200mg/20ml IV ONE (10:30)
--- NOTE | 2019-03-29 10:30 | NUR ---
NURSE NOTES: EGD w/biopsy complete. Monitoring post op VS. Lethargic from sedation. NGT pulled out during procedure, repositioned and ordered STAT KUB.
--- NOTE | 2019-03-29 10:30 | NUR ---
NURSE NOTES: EGD being done at bedside by Dr. Roche.
--- NOTE | 2019-03-29 10:56 | Immediate Post-Op Evaluation ---
Immediate Post-Op Evalulation Immediate Post-Op Evalulation Procedure: egd Date of Evaluation: Mar 29, 2019 Time of Evaluation: 10:42 IV Fluids: 50 Blood Products: 0 Estimated Blood Loss: 0 Urinary Output: 0 Blood Pressure Systolic: 94 Blood Pressure Diastolic: 49 Pulse Rate: 56 Respiratory Rate: 16 O2 Sat by Pulse Oximetry: 100 Temperature (Fahrenheit): 97 Pain Score (1-10): 0 Nausea: No Vomiting: No Complications 0 Patient Status: awake, reacts, patent, none Hydration Status: adequate Drug: N/A Kay Tolentino MD Mar 29, 2019 10:56
--- NOTE | 2019-03-29 10:57 | 48 Hour Post Anesthesia Eval ---
Post Anesthesia Evaluation Procedure: egd Date of Evaluation: Mar 29, 2019 Airway: patent Nausea: No Vomiting: No Hydration Status: adequate Cardiopulmonary Status: at baseline Mental Status/LOC: patient returned to baseline Post-Anesthesia Complications: 0 Follow-up care needed: ready to discharge Kay Tolentino MD Mar 29, 2019 10:57
--- NOTE | 2019-03-29 11:06 | Endoscopy Procedure Note ---
Endoscopy Procedure Note General Indication for Procedure: gib Procedures Performed: EGD Operative Findings/Diagnosis: gastritis Specimen: yes Pt Tolerated Procedure Well: Yes Estimated Blood Loss: none Anesthesia Anesthesiologist: santana Anesthesia: MAC Inserted Devices Implant(s) used?: No GI Core Measures 50 yrs or older w/o bx or poly: Not Applicable 10yrs. F/U recommended: Not Applicable Sergei Roche MD Mar 29, 2019 11:06
--- NOTE | 2019-03-29 12:00 | NUR ---
NURSE NOTES: Turned and repositioned. 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 Notified Dr. Vargas and asked if he wants to switch to Dopamine. Awaiting for call back.
--- NOTE | 2019-03-29 13:12 | Pulmonolgy Critical Care Note ---
Critical Care - Asmt/Plan Problems: (1) Severe sepsis (2) Respiratory distress (3) Dyspnea (4) Hypoxia (5) Decubitus skin ulcer (6) Lung mass (7) Multifocal pneumonia (8) Elevated TSH (9) Staphylococcus aureus bacteremia Assessment/Plan: Continue D5NS@100 Continue ventilatory support/settings reviewed PRN HHN's Daily SBT - will keep intubated in case plan for EGD Titrate KRANTHI to keep MAP > 60 F/U TFTs Vanco/Zosyn (D3) per ID F/U Cx's ICU sedation: Fent gtt titrate to RASS - 2 + PRN Versed F/U cards recs Continue Hep SQ for now, once acute issues resolved consider resuming Xarelto Monitor HH, F/U GI recs, F/U EGD results and path CT-A CAP ordered + DUPLEX FC, continue to discuss GOC ---> d/w and daughter both reaffirmed desire for full treatment measures but reiterated that they would consider a more a palliative approach based on his trajectory the next few days Critical Care - Objective Last 24 Hour Vital Signs Date Time Temp Pulse Resp B/P (MAP) Pulse Ox O2 Delivery O2 Flow Rate FiO2 03/29/19 13:00 53 16 40 03/29/19 12:00 Mechanical Ventilator 03/29/19 12:00 40 03/29/19 12:00 56 03/29/19 11:15 94 16 100/49 (66) 100 03/29/19 11:00 71 15 117/46 (69) 100 03/29/19 11:00 58 15 119/55 (76) 100 03/29/19 10:56 56 16 100 03/29/19 10:55 62 15 115/51 (72) 100 03/29/19 10:50 47 15 93/44 (60) 100 03/29/19 10:48 67 16 40 03/29/19 10:45 51 15 70/34 (46) 100 03/29/19 10:30 98.6 59 15 94/49 (64) 100 03/29/19 10:30 40 03/29/19 10:09 105/45 03/29/19 10:00 71 15 117/46 (69) 100 03/29/19 09:30 68 16 113/52 (72) 100 03/29/19 09:10 100 03/29/19 09:08 40 03/29/19 09:04 70 11 40 03/29/19 09:00 65 14 126/51 (76) 100 03/29/19 08:30 57 16 105/45 (65) 100 03/29/19 08:00 54 03/29/19 08:00 40 03/29/19 08:00 98.6 55 15 108/49 (68) 100 03/29/19 08:00 Mechanical Ventilator 03/29/19 07:20 64 16 40 03/29/19 07:00 57 15 105/45 (65) 100 03/29/19 07:00 15 Mechanical Ventilator 40 03/29/19 07:00 105/45 03/29/19 06:30 57 16 114/45 (68) 100 03/29/19 06:00 57 16 100/43 (62) 100 03/29/19 06:00 16 Mechanical Ventilator 40 03/29/19 06:00 107/41 03/29/19 05:30 58 16 98/41 (60) 100 03/29/19 05:01 60 16 40 03/29/19 05:00 16 Mechanical Ventilator 40 03/29/19 05:00 101/42 03/29/19 05:00 58 16 99/45 (63) 100 03/29/19 04:30 110 16 96/44 (61) 100 03/29/19 04:00 Mechanical Ventilator 03/29/19 04:00 16 Mechanical Ventilator 40 03/29/19 04:00 73/36 03/29/19 04:00 59 03/29/19 04:00 97.6 113 16 73/36 (48) 100 03/29/19 04:00 40 03/29/19 03:00 73 18 111/60 (77) 100 03/29/19 03:00 16 Mechanical Ventilator 40 03/29/19 03:00 100/41 03/29/19 02:45 98 16 100/41 (60) 100 03/29/19 02:38 106 16 40 03/29/19 02:30 69 16 86/53 (64) 100 03/29/19 02:15 71 16 107/38 (61) 100 03/29/19 02:00 16 Mechanical Ventilator 40 03/29/19 02:00 107/38 03/29/19 02:00 62 16 99/42 (61) 100 03/29/19 01:30 80 16 102/45 (64) 100 03/29/19 01:20 16 Mechanical Ventilator 40 03/29/19 01:15 16 Mechanical Ventilator 40 03/29/19 01:10 16 Mechanical Ventilator 40 03/29/19 01:05 16 Mechanical Ventilator 40 03/29/19 01:00 129 16 122/79 (93) 100 03/29/19 01:00 16 Mechanical Ventilator 40 03/29/19 01:00 86/53 03/29/19 01:00 63 17 40 03/29/19 00:30 66 17 100/46 (64) 100 03/29/19 00:00 97.6 59 10 107/38 (61) 100 03/29/19 00:00 16 Mechanical Ventilator 40 03/29/19 00:00 112/58 03/29/19 00:00 78 03/29/19 00:00 Mechanical Ventilator 03/29/19 00:00 40 03/28/19 23:30 62 0 136/65 (88) 100 03/28/19 23:00 16 Mechanical Ventilator 40 03/28/19 23:00 100/41 03/28/19 23:00 67 15 100/46 (64) 100 03/28/19 22:49 59 16 40 03/28/19 22:30 58 16 111/45 (67) 100 03/28/19 22:00 16 Mechanical Ventilator 40 03/28/19 22:00 97/42 03/28/19 22:00 56 15 101/45 (63) 100 03/28/19 21:37 59 17 40 03/28/19 21:30 55 16 100/40 (60) 100 03/28/19 21:17 97.5 03/28/19 21:00 16 Mechanical Ventilator 40 03/28/19 21:00 112/45 03/28/19 21:00 58 16 108/59 (75) 100 03/28/19 20:47 16 Mechanical Ventilator 40 03/28/19 20:30 55 16 93/44 (60) 100 03/28/19 20:00 40 03/28/19 20:00 Mechanical Ventilator 03/28/19 20:00 107/47 03/28/19 20:00 97.5 65 16 121/48 (72) 100 03/28/19 20:00 58 03/28/19 19:00 60 16 108/46 (66) 100 03/28/19 19:00 108/46 03/28/19 18:45 58 16 40 03/28/19 18:30 62 16 100/47 (64) 100 03/28/19 18:00 110/57 03/28/19 18:00 67 16 110/57 (74) 100 03/28/19 17:30 88 21 146/66 (92) 100 03/28/19 17:29 98 21 40 03/28/19 17:00 58 16 97/38 (57) 100 03/28/19 17:00 107/51 03/28/19 17:00 70 18 107/51 (69) 100 03/28/19 16:30 97.2 72 21 112/41 (64) 100 03/28/19 16:00 115/55 03/28/19 16:00 Mechanical Ventilator 03/28/19 16:00 40 03/28/19 16:00 60 03/28/19 16:00 58 16 97/38 (57) 100 03/28/19 15:02 58 16 40 03/28/19 15:00 59 16 121/43 (69) 100 03/28/19 15:00 121/43 03/28/19 14:45 60 16 123/51 (75) 100 03/28/19 14:30 117 16 125/74 (91) 100 03/28/19 14:00 110/57 03/28/19 14:00 58 16 110/57 (74) 100 03/28/19 13:30 85 19 129/69 (89) 100 03/28/19 13:29 60 16 40 Status: sedated, other - intubated Condition: critical HEENT: atraumatic, normocephalic Lungs: rhonchi Heart: HR/BP unstable Abdomen: soft, non-tender, active bowel sounds Extremities: no C/C/E Micro: Microbiology Date/Time Source Procedure Growth Status 03/26/19 13:50 Blood Blood Culture - Final Staphylococcus Aureus - Mrsa Complete 03/26/19 13:40 Blood Blood Culture - Final Staphylococcus Aureus - Mrsa Complete 03/28/19 13:44 Sputum Gram Stain - Final Resulted 03/28/19 13:44 Sputum Sputum Culture Pending Resulted Blood Sugars: BS controlled Critical Care - Subjective ROS Limited/Unobtainable: Yes ICU Day: 3 Intubation Day: 3 Interval Events: S/P EGD HH stable Failed SBT 2/2 apnea MRSA in blood D-dimer + Condition: critical IV Access: central EKG Rhythm: Sinus Rhythm FI02: 40 Vent Support Breath Rate: 16 Vent Support Mode: AC Vent Tidal Volume: 600 Sputum Amount: Scant PEEP: 5.0 PIP: 20 Secretions: None Fluids: D5NS@100 Drips: NE@6 Tube Feeding Amount: 0 I&O: Intake and Output 03/28/19 03/29/19 19:00 07:00 Intake Total 2081.208 ml 2211.192 ml Output Total 1270 ml 755 ml Balance 811.208 ml 1456.192 ml Intake Free Water 100 ml 100 ml IV Total 1721.208 ml 1516.192 ml Tube Feeding 260 ml 595 ml Output Urine Total 1270 ml 755 ml # Bowel Movements 2 1 Subjective: intubated CLAYTON ET-Tube: 7.5 ET Position: 24 Labs: Laboratory Tests Test 03/28/19 15:00 03/29/19 03:47 03/29/19 04:00 Stool Occult Blood Pending Positive (NEGATIVE) Free Thyroxine 1.05 NG/DL (0.76-1.46) Triiodothyonine (T3) 48 ng/dL (71-180) L Free Triiodothyronine 0.5 pg/mL (2.3-4.2) L Triiodothyronine (T3) Uptake 34 % (24-39) Hepatitis A IgM Antibody Negative (Negative) Hepatitis B Surface Antigen Negative (Negative) Hepatitis B Core IgM Antibody Negative (Negative) Hepatitis C Antibody 0.3 s/co ratio (0.0-0.9) HIV (1&2) Antibody Rapid Negative (NEGATIVE) White Blood Count 9.6 K/UL (4.8-10.8) Red Blood Count 2.88 M/UL (4.70-6.10) L Hemoglobin 8.1 G/DL (14.2-18.0) L Hematocrit 25.6 % (42.0-52.0) L Mean Corpuscular Volume 89 FL (80-99) Mean Corpuscular Hemoglobin 28.2 PG (27.0-31.0) Mean Corpuscular Hemoglobin Concent 31.7 G/DL (32.0-36.0) L Red Cell Distribution Width 16.2 % (11.6-14.8) H Platelet Count 121 K/UL (150-450) L Mean Platelet Volume 4.9 FL (6.5-10.1) L Neutrophils (%) (Auto) 80.4 % (45.0-75.0) H Lymphocytes (%) (Auto) 16.9 % (20.0-45.0) L Monocytes (%) (Auto) 2.2 % (1.0-10.0) Eosinophils (%) (Auto) 0.4 % (0.0-3.0) Basophils (%) (Auto) 0.1 % (0.0-2.0) Sodium Level 138 MMOL/L (136-145) Potassium Level 3.1 MMOL/L (3.5-5.1) L Chloride Level 107 MMOL/L (98-107) Carbon Dioxide Level 25 MMOL/L (21-32) Anion Gap 6 mmol/L (5-15) Blood Urea Nitrogen 18 mg/dL (7-18) Creatinine 1.2 MG/DL (0.55-1.30) Estimat Glomerular Filtration Rate mL/min (>60) Glucose Level 127 MG/DL (74-106) H Calcium Level 8.2 MG/DL (8.5-10.1) L Vancomycin Level Trough 20.8 ug/mL (5.0-12.0) H Joaquim Bello MD Mar 29, 2019 13:11
--- NOTE | 2019-03-29 14:00 | Surgery Progress Note ---
Surgery Progress Note Subjective Additional Comments No acute events, leukocytosis resolved, MRSA bacteremia Objective Last 24 Hour Vital Signs Date Time Temp Pulse Resp B/P (MAP) Pulse Ox O2 Delivery O2 Flow Rate FiO2 03/29/19 13:00 53 16 40 03/29/19 12:00 Mechanical Ventilator 03/29/19 12:00 40 03/29/19 12:00 56 03/29/19 11:15 94 16 100/49 (66) 100 03/29/19 11:00 71 15 117/46 (69) 100 03/29/19 11:00 58 15 119/55 (76) 100 03/29/19 10:56 56 16 100 03/29/19 10:55 62 15 115/51 (72) 100 03/29/19 10:50 47 15 93/44 (60) 100 03/29/19 10:48 67 16 40 03/29/19 10:45 51 15 70/34 (46) 100 03/29/19 10:30 98.6 59 15 94/49 (64) 100 03/29/19 10:30 40 03/29/19 10:09 105/45 03/29/19 10:00 71 15 117/46 (69) 100 03/29/19 09:30 68 16 113/52 (72) 100 03/29/19 09:10 100 03/29/19 09:08 40 03/29/19 09:04 70 11 40 03/29/19 09:00 65 14 126/51 (76) 100 03/29/19 08:30 57 16 105/45 (65) 100 03/29/19 08:00 54 03/29/19 08:00 40 03/29/19 08:00 98.6 55 15 108/49 (68) 100 03/29/19 08:00 Mechanical Ventilator 03/29/19 07:20 64 16 40 03/29/19 07:00 57 15 105/45 (65) 100 03/29/19 07:00 15 Mechanical Ventilator 40 03/29/19 07:00 105/45 03/29/19 06:30 57 16 114/45 (68) 100 03/29/19 06:00 57 16 100/43 (62) 100 03/29/19 06:00 16 Mechanical Ventilator 40 03/29/19 06:00 107/41 03/29/19 05:30 58 16 98/41 (60) 100 03/29/19 05:01 60 16 40 03/29/19 05:00 16 Mechanical Ventilator 40 03/29/19 05:00 101/42 03/29/19 05:00 58 16 99/45 (63) 100 03/29/19 04:30 110 16 96/44 (61) 100 03/29/19 04:00 Mechanical Ventilator 03/29/19 04:00 16 Mechanical Ventilator 40 03/29/19 04:00 73/36 03/29/19 04:00 59 03/29/19 04:00 97.6 113 16 73/36 (48) 100 03/29/19 04:00 40 03/29/19 03:00 73 18 111/60 (77) 100 03/29/19 03:00 16 Mechanical Ventilator 40 03/29/19 03:00 100/41 03/29/19 02:45 98 16 100/41 (60) 100 03/29/19 02:38 106 16 40 03/29/19 02:30 69 16 86/53 (64) 100 03/29/19 02:15 71 16 107/38 (61) 100 03/29/19 02:00 16 Mechanical Ventilator 40 03/29/19 02:00 107/38 03/29/19 02:00 62 16 99/42 (61) 100 03/29/19 01:30 80 16 102/45 (64) 100 03/29/19 01:20 16 Mechanical Ventilator 40 03/29/19 01:15 16 Mechanical Ventilator 40 03/29/19 01:10 16 Mechanical Ventilator 40 03/29/19 01:05 16 Mechanical Ventilator 40 03/29/19 01:00 129 16 122/79 (93) 100 03/29/19 01:00 16 Mechanical Ventilator 40 03/29/19 01:00 86/53 03/29/19 01:00 63 17 40 03/29/19 00:30 66 17 100/46 (64) 100 03/29/19 00:00 97.6 59 10 107/38 (61) 100 03/29/19 00:00 16 Mechanical Ventilator 40 03/29/19 00:00 112/58 03/29/19 00:00 78 03/29/19 00:00 Mechanical Ventilator 03/29/19 00:00 40 03/28/19 23:30 62 0 136/65 (88) 100 03/28/19 23:00 16 Mechanical Ventilator 40 03/28/19 23:00 100/41 03/28/19 23:00 67 15 100/46 (64) 100 03/28/19 22:49 59 16 40 03/28/19 22:30 58 16 111/45 (67) 100 03/28/19 22:00 16 Mechanical Ventilator 40 03/28/19 22:00 97/42 03/28/19 22:00 56 15 101/45 (63) 100 03/28/19 21:37 59 17 40 03/28/19 21:30 55 16 100/40 (60) 100 03/28/19 21:17 97.5 03/28/19 21:00 16 Mechanical Ventilator 40 03/28/19 21:00 112/45 03/28/19 21:00 58 16 108/59 (75) 100 03/28/19 20:47 16 Mechanical Ventilator 40 03/28/19 20:30 55 16 93/44 (60) 100 03/28/19 20:00 40 03/28/19 20:00 Mechanical Ventilator 03/28/19 20:00 107/47 03/28/19 20:00 97.5 65 16 121/48 (72) 100 03/28/19 20:00 58 03/28/19 19:00 60 16 108/46 (66) 100 03/28/19 19:00 108/46 03/28/19 18:45 58 16 40 03/28/19 18:30 62 16 100/47 (64) 100 03/28/19 18:00 110/57 03/28/19 18:00 67 16 110/57 (74) 100 03/28/19 17:30 88 21 146/66 (92) 100 03/28/19 17:29 98 21 40 03/28/19 17:00 58 16 97/38 (57) 100 03/28/19 17:00 107/51 03/28/19 17:00 70 18 107/51 (69) 100 03/28/19 16:30 97.2 72 21 112/41 (64) 100 03/28/19 16:00 115/55 03/28/19 16:00 Mechanical Ventilator 03/28/19 16:00 40 03/28/19 16:00 60 8/20/19 16:00 58 16 97/38 (57) 100 03/28/19 15:02 58 16 40 03/28/19 15:00 59 16 121/43 (69) 100 03/28/19 15:00 121/43 03/28/19 14:45 60 16 123/51 (75) 100 03/28/19 14:30 117 16 125/74 (91) 100 03/28/19 14:00 110/57 03/28/19 14:00 58 16 110/57 (74) 100 I&O Intake and Output 03/28/19 03/29/19 19:00 07:00 Intake Total 2081.208 ml 2211.192 ml Output Total 1270 ml 755 ml Balance 811.208 ml 1456.192 ml Intake Free Water 100 ml 100 ml IV Total 1721.208 ml 1516.192 ml Tube Feeding 260 ml 595 ml Output Urine Total 1270 ml 755 ml # Bowel Movements 2 1 Dressing: saturated Wound: other Drains: other Cardiovascular: RSR Respiratory: decreased breath sounds Abdomen: soft, present bowel sounds, non-distended Extremities: no cyanosis, other Laboratory Tests Test 03/28/19 15:00 03/29/19 03:47 03/29/19 04:00 Stool Occult Blood Pending Positive (NEGATIVE) Free Thyroxine 1.05 NG/DL (0.76-1.46) Triiodothyonine (T3) 48 ng/dL (71-180) L Free Triiodothyronine 0.5 pg/mL (2.3-4.2) L Triiodothyronine (T3) Uptake 34 % (24-39) Hepatitis A IgM Antibody Negative (Negative) Hepatitis B Surface Antigen Negative (Negative) Hepatitis B Core IgM Antibody Negative (Negative) Hepatitis C Antibody 0.3 s/co ratio (0.0-0.9) HIV (1&2) Antibody Rapid Negative (NEGATIVE) White Blood Count 9.6 K/UL (4.8-10.8) Red Blood Count 2.88 M/UL (4.70-6.10) L Hemoglobin 8.1 G/DL (14.2-18.0) L Hematocrit 25.6 % (42.0-52.0) L Mean Corpuscular Volume 89 FL (80-99) Mean Corpuscular Hemoglobin 28.2 PG (27.0-31.0) Mean Corpuscular Hemoglobin Concent 31.7 G/DL (32.0-36.0) L Red Cell Distribution Width 16.2 % (11.6-14.8) H Platelet Count 121 K/UL (150-450) L Mean Platelet Volume 4.9 FL (6.5-10.1) L Neutrophils (%) (Auto) 80.4 % (45.0-75.0) H Lymphocytes (%) (Auto) 16.9 % (20.0-45.0) L Monocytes (%) (Auto) 2.2 % (1.0-10.0) Eosinophils (%) (Auto) 0.4 % (0.0-3.0) Basophils (%) (Auto) 0.1 % (0.0-2.0) Sodium Level 138 MMOL/L (136-145) Potassium Level 3.1 MMOL/L (3.5-5.1) L Chloride Level 107 MMOL/L (98-107) Carbon Dioxide Level 25 MMOL/L (21-32) Anion Gap 6 mmol/L (5-15) Blood Urea Nitrogen 18 mg/dL (7-18) Creatinine 1.2 MG/DL (0.55-1.30) Estimat Glomerular Filtration Rate mL/min (>60) Glucose Level 127 MG/DL (74-106) H Calcium Level 8.2 MG/DL (8.5-10.1) L Vancomycin Level Trough 20.8 ug/mL (5.0-12.0) H Plan Problems: (1) Respiratory distress (2) Decubitus skin ulcer Assessment & Plan: Pt presented on admission with multiple pressure injuries and ulcerations 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 Base of wound has mixed slough and necrosis. Edges adherent and dark . Periwound indurated with darker skin tone. Pt complained of pain when minimally palpated. Mild odor noted Full thickness ulcer R tibia. Base of wound has slough. Edges adherent and flat ,Periwound without erythema or fluctuance. Stable dry eschar noted to R hallux. edges are dark but adherent to base of wound. Periwound dark without erythema or fluctuance Stable dry eschar noted to R st metatarsal head. Periwound pale without fluctuance Stable dry eschar noted to dorsal aspects of R 3rd and 4th metatarsals. Full thickness ulcer lateral R 5th metatarsal. base of wound with some areas of necrosis and edges are black . No odor or exudate noted Stable dry eschar R heel . Periwound fluctuant without erythema. Pt complained of pain when minimally palpated. Stable dry eschar noted to dorso/flexor L foot. Periwound without erythema , induration or fluctuance Reabsorbing blood blister noted to medial L foot. Periwound without erythema or fluctuance L heel is dry and blanchable with historical scarring from previous wounds .Dry flaky skin noted to both feet. Tx.Plan: Swab all wounds both lower ext and feet with Betadine. Cover each wound with Optifoam drsgs every 3 days and prn. Cleanse Sacral wound with Saline. Apply Therahoney. Apply Moisture Barrier Paste periwound. Cover with Optifoam Drsg. Change Daily and prn. APM/PHIL mattress overlay. Reposition at least every 2hours or as tolerated. Off-load heels with pillow. (3) Severe sepsis Assessment & Plan: leukocytosis resolved anemia lactic acidosis resolved improving septic MRSA bacteremia labs noted imaging noted Cont IV abx as per ID feeds wounds evaluated and care plan as above labs noted f/u cxr will follow with recs thank you DAILY ESTIMATED NEEDS: Needs based on Wound, critical care 78.6kg 25-30 kcals/kg [id number] total kcals 1.25-2 g protein/kg 98-157 g total protein Fluid per MD, on lasix NUTRITION DIAGNOSIS: 1) Increased kcal/ pro needs r/t wound healing as evidenced by full thickness sacral wound, pending updated eval. 2) Swallowing difficulty r/t respiratory status as evidenced by s/p RR, pt now orally intubated, on pressor support. CURRENT DIET: Regular-> pt now intubated ENTERAL NUTRITION RECOMMENDATIONS: Osmolite 1.5 @55ml/hr x24 hrs + Prosource BID to provide 1320ml, 1980 kcal, 83g + 22g pro, 1006ml free H2O - WHEN HEMODYNAMICALLY STABLE, rec to obtain GI access, initiate non oral feeds to meed est nutritional needs - Start Osmolite 1.5 @25ml/hr for 6 hrs, advance as tolerated 10ml/hr q4-6 hrs to goal. - Flush per MD/ HOB over 30 degrees ADDITIONAL RECOMMENDATIONS: 1) Obtain a CALIBRATED bed wt 2) Feed w/ hemodynamic stability -> currently on pressors x2 3) WOUND CARE: Add BRUCE BID w/ GI access Add VIT C 250mg BID Add ZnSO4 220mg daily x10 days 4) On lasix, monitor lytes daily 5) CREATIVE ARTS THERAPIST eval upon extubation (4) Dyspnea (5) Hypoxia Tawanda Alfaro Mar 29, 2019 14:00
[2019-03-29] MEDS ORDERED: Isovue-370 150ml vial INJ PRN (14:15)
[2019-03-29] MEDS ORDERED: Gastrograffin 30ml ORAL PRN (14:15)
[2019-03-29] MEDS ORDERED: Isovue-300 100ml vial INJ PRN (14:15)
--- NOTE | 2019-03-29 14:28 | Cardiac Electrophysiology PN ---
Assessment/Plan Assessment/Plan 1. Septic shock. Blood Cx positive for GP cocci. The patient is on Levophed and Midodrine as well as IV antibiotics. His echocardiogram showed ejection fraction of 60 to 65 percent with mild diastolic dysfunction. 2. Bradycardia. May need to change Levophed to Dopamine. DC Midodrine when off pressors 2. Respiratory failure, likely due to pneumonia. The patient is on broad- spectrum IV antibiotics. 3. Mild diastolic dysfunction with elevated BNP. 4. History of PE. On Heparin. Chest CT pending today 5. UTI. AVERY RN Subjective Subjective Intubated on the vent and still on Levophed 2mcg. Genaro at times to 40s. Had EGD today that showed gastritis Objective Last 24 Hour Vital Signs Date Time Temp Pulse Resp B/P (MAP) Pulse Ox O2 Delivery O2 Flow Rate FiO2 03/29/19 13:00 53 16 40 03/29/19 12:00 Mechanical Ventilator 03/29/19 12:00 40 03/29/19 12:00 56 03/29/19 11:15 94 16 100/49 (66) 100 03/29/19 11:00 71 15 117/46 (69) 100 03/29/19 11:00 58 15 119/55 (76) 100 03/29/19 10:56 56 16 100 03/29/19 10:55 62 15 115/51 (72) 100 03/29/19 10:50 47 15 93/44 (60) 100 03/29/19 10:48 67 16 40 03/29/19 10:45 51 15 70/34 (46) 100 03/29/19 10:30 98.6 59 15 94/49 (64) 100 03/29/19 10:30 40 03/29/19 10:09 105/45 03/29/19 10:00 71 15 117/46 (69) 100 03/29/19 09:30 68 16 113/52 (72) 100 03/29/19 09:10 100 03/29/19 09:08 40 03/29/19 09:04 70 11 40 03/29/19 09:00 65 14 126/51 (76) 100 03/29/19 08:30 57 16 105/45 (65) 100 03/29/19 08:00 54 03/29/19 08:00 40 03/29/19 08:00 98.6 55 15 108/49 (68) 100 03/29/19 08:00 Mechanical Ventilator 03/29/19 07:20 64 16 40 03/29/19 07:00 57 15 105/45 (65) 100 03/29/19 07:00 15 Mechanical Ventilator 40 03/29/19 07:00 105/45 03/29/19 06:30 57 16 114/45 (68) 100 03/29/19 06:00 57 16 100/43 (62) 100 03/29/19 06:00 16 Mechanical Ventilator 40 03/29/19 06:00 107/41 03/29/19 05:30 58 16 98/41 (60) 100 03/29/19 05:01 60 16 40 03/29/19 05:00 16 Mechanical Ventilator 40 03/29/19 05:00 101/42 03/29/19 05:00 58 16 99/45 (63) 100 03/29/19 04:30 110 16 96/44 (61) 100 03/29/19 04:00 Mechanical Ventilator 03/29/19 04:00 16 Mechanical Ventilator 40 03/29/19 04:00 73/36 03/29/19 04:00 59 03/29/19 04:00 97.6 113 16 73/36 (48) 100 03/29/19 04:00 40 03/29/19 03:00 73 18 111/60 (77) 100 03/29/19 03:00 16 Mechanical Ventilator 40 03/29/19 03:00 100/41 03/29/19 02:45 98 16 100/41 (60) 100 03/29/19 02:38 106 16 40 03/29/19 02:30 69 16 86/53 (64) 100 03/29/19 02:15 71 16 107/38 (61) 100 03/29/19 02:00 16 Mechanical Ventilator 40 03/29/19 02:00 107/38 03/29/19 02:00 62 16 99/42 (61) 100 03/29/19 01:30 80 16 102/45 (64) 100 03/29/19 01:20 16 Mechanical Ventilator 40 03/29/19 01:15 16 Mechanical Ventilator 40 03/29/19 01:10 16 Mechanical Ventilator 40 03/29/19 01:05 16 Mechanical Ventilator 40 03/29/19 01:00 129 16 122/79 (93) 100 03/29/19 01:00 16 Mechanical Ventilator 40 03/29/19 01:00 86/53 03/29/19 01:00 63 17 40 03/29/19 00:30 66 17 100/46 (64) 100 03/29/19 00:00 97.6 59 10 107/38 (61) 100 03/29/19 00:00 16 Mechanical Ventilator 40 03/29/19 00:00 112/58 03/29/19 00:00 78 03/29/19 00:00 Mechanical Ventilator 03/29/19 00:00 40 03/28/19 23:30 62 0 136/65 (88) 100 03/28/19 23:00 16 Mechanical Ventilator 40 03/28/19 23:00 100/41 03/28/19 23:00 67 15 100/46 (64) 100 03/28/19 22:49 59 16 40 03/28/19 22:30 58 16 111/45 (67) 100 03/28/19 22:00 16 Mechanical Ventilator 40 03/28/19 22:00 97/42 03/28/19 22:00 56 15 101/45 (63) 100 03/28/19 21:37 59 17 40 03/28/19 21:30 55 16 100/40 (60) 100 03/28/19 21:17 97.5 03/28/19 21:00 16 Mechanical Ventilator 40 03/28/19 21:00 112/45 03/28/19 21:00 58 16 108/59 (75) 100 03/28/19 20:47 16 Mechanical Ventilator 40 03/28/19 20:30 55 16 93/44 (60) 100 03/28/19 20:00 40 03/28/19 20:00 Mechanical Ventilator 03/28/19 20:00 107/47 03/28/19 20:00 97.5 65 16 121/48 (72) 100 03/28/19 20:00 58 03/28/19 19:00 60 16 108/46 (66) 100 19 19:00 108/46 03/28/19 18:45 58 16 40 03/28/19 18:30 62 16 100/47 (64) 100 03/28/19 18:00 110/57 03/28/19 18:00 67 16 110/57 (74) 100 03/28/19 17:30 88 21 146/66 (92) 100 03/28/19 17:29 98 21 40 03/28/19 17:00 58 16 97/38 (57) 100 03/28/19 17:00 107/51 03/28/19 17:00 70 18 107/51 (69) 100 03/28/19 16:30 97.2 72 21 112/41 (64) 100 03/28/19 16:00 115/55 03/28/19 16:00 Mechanical Ventilator 03/28/19 16:00 40 03/28/19 16:00 60 03/28/19 16:00 58 16 97/38 (57) 100 03/28/19 15:02 58 16 40 03/28/19 15:00 59 16 121/43 (69) 100 03/28/19 15:00 121/43 03/28/19 14:45 60 16 123/51 (75) 100 03/28/19 14:30 117 16 125/74 (91) 100 Intake and Output 03/28/19 03/29/19 19:00 07:00 Intake Total 2081.208 ml 2211.192 ml Output Total 1270 ml 755 ml Balance 811.208 ml 1456.192 ml Intake Free Water 100 ml 100 ml IV Total 1721.208 ml 1516.192 ml Tube Feeding 260 ml 595 ml Output Urine Total 1270 ml 755 ml # Bowel Movements 2 1 Laboratory Tests Test 03/28/19 15:00 03/29/19 03:47 03/29/19 04:00 Stool Occult Blood Pending Positive (NEGATIVE) Free Thyroxine 1.05 NG/DL (0.76-1.46) Triiodothyonine (T3) 48 ng/dL (71-180) L Free Triiodothyronine 0.5 pg/mL (2.3-4.2) L Triiodothyronine (T3) Uptake 34 % (24-39) Hepatitis A IgM Antibody Negative (Negative) Hepatitis B Surface Antigen Negative (Negative) Hepatitis B Core IgM Antibody Negative (Negative) Hepatitis C Antibody 0.3 s/co ratio (0.0-0.9) HIV (1&2) Antibody Rapid Negative (NEGATIVE) White Blood Count 9.6 K/UL (4.8-10.8) Red Blood Count 2.88 M/UL (4.70-6.10) L Hemoglobin 8.1 G/DL (14.2-18.0) L Hematocrit 25.6 % (42.0-52.0) L Mean Corpuscular Volume 89 FL (80-99) Mean Corpuscular Hemoglobin 28.2 PG (27.0-31.0) Mean Corpuscular Hemoglobin Concent 31.7 G/DL (32.0-36.0) L Red Cell Distribution Width 16.2 % (11.6-14.8) H Platelet Count 121 K/UL (150-450) L Mean Platelet Volume 4.9 FL (6.5-10.1) L Neutrophils (%) (Auto) 80.4 % (45.0-75.0) H Lymphocytes (%) (Auto) 16.9 % (20.0-45.0) L Monocytes (%) (Auto) 2.2 % (1.0-10.0) Eosinophils (%) (Auto) 0.4 % (0.0-3.0) Basophils (%) (Auto) 0.1 % (0.0-2.0) Sodium Level 138 MMOL/L (136-145) Potassium Level 3.1 MMOL/L (3.5-5.1) L Chloride Level 107 MMOL/L (98-107) Carbon Dioxide Level 25 MMOL/L (21-32) Anion Gap 6 mmol/L (5-15) Blood Urea Nitrogen 18 mg/dL (7-18) Creatinine 1.2 MG/DL (0.55-1.30) Estimat Glomerular Filtration Rate mL/min (>60) Glucose Level 127 MG/DL (74-106) H Calcium Level 8.2 MG/DL (8.5-10.1) L Vancomycin Level Trough 20.8 ug/mL (5.0-12.0) H Microbiology Date/Time Source Procedure Growth Status 03/28/19 13:44 Sputum Gram Stain - Final Resulted 03/28/19 13:44 Sputum Sputum Culture Pending Resulted Objective HEAD AND NECK: Orally intubated with NG-tube. LUNGS: Coarse rhonchi. CARDIOVASCULAR:Regular S1 and S2 with no gallop or murmur. ABDOMEN: Soft. EXTREMITIES: No pitting edema. Christian Vargas MD Mar 29, 2019 14:28
--- NOTE | 2019-03-29 14:39 | Diagnostic Imaging Report ---
Indication: Status post nasogastric tube repositioning Technique: Supine view of the abdomen Comparison: 03/27/2019 Findings: Patient is rotated to the right. Again demonstrated is a nasogastric tube, tip projecting at the level of the gastric fundus, proximal port just beyond the gastroesophageal junction; position probably similar to the prior study allowing for differences in degree of rotation. Considerable gas is seen in the nondilated large and small bowel. There is a right groin central venous catheter. There is a Jose catheter Impression: Satisfactory position of nasogastric tube No acute process Nonspecific bowel gas pattern, with considerable gas within nondilated small bowel loops diffusely Other findings as noted
--- NOTE | 2019-03-29 14:43 | NUR ---
NURSE NOTES: IV contrast consent obtained from daughter, Valentine who is at bedside. Gastrografin given via PEG for CT abdomen w/contrast. No signs of distress at this time.
--- NOTE | 2019-03-29 15:33 | NUR ---
Social Service Note Patient is a resident of [facility] [phone], 12/2018. Patient on a 7 day bed hold. POLST completed by patient's dgt Annie Neely [phone] 12/2018 indicates CPR, Full treatment, magazine editor artificial nutrition and doesn't have an advance directives. Patient will continue to require magazine editor placement upon discharge. Will continue to monitor and assist as needed.
--- NOTE | 2019-03-29 15:45 | Procedure Note ---
DATE OF PROCEDURE: 03/29/2019 SURGEON: Sergei Roche M.D. REFERRING PHYSICIAN: Elmo Mims M.D. PROCEDURE: Upper endoscopy with biopsy. ANESTHESIA: Per Dr. Mittal. INDICATION: Upper GI bleeding. REASON FOR PROCEDURE: The procedure, risks, benefits, and possible consequences, including hemorrhage, aspiration, perforation and infection, and alternative treatments, were explained to the patient/legal guardian by Dr. Sergei Roche and the patient/legal guardian understood and accepted these risks. PROCEDURE IN DETAIL: After informed consent was obtained and the patient was adequately sedated, Olympus upper endoscope was advanced from the mouth into second portion of the duodenum and retroflexion was performed in the stomach. The patient had evidence of diffuse gastritis. Random biopsy from antrum was obtained to rule out H. pylori infection. Otherwise, the rest of upper endoscopic examination grossly within normal limits. There was no evidence of any obvious GI bleeding. No gastric ulceration or esophagitis. At this time, the upper endoscope was retrieved and procedure was terminated. SUMMARY OF FINDINGS: Gastritis, otherwise normal upper endoscopic examination. RECOMMENDATIONS: Follow biopsy results and treat accordingly. I want to thank Dr. Mims for this kind referral. Sergei Roche M.D. DR: LISA JOB#: [id number] CC:
--- NOTE | 2019-03-29 17:00 | NUR ---
NURSE NOTES: Patient returned from CT. VSS. Turned off Levophed but turned on again as BP decreased to 79/48.
--- NOTE | 2019-03-29 18:26 | Diagnostic Imaging Report ---
ndication: Shortness of breath, chest pain, sepsis, respiratory distress Technique: IV administration nonionic contrast. Spiral acquisitions obtained from the lung bases to the lung apices. Multiplanar and 3-D reconstructions were generated. Total dose length product 1721.78 mGycm. CTDIvol(s) 18.72,15.23 mGy. Dose reduction achieved using automated exposure control Comparison: 01/18/2019 Findings: There is some image degradation due to respiratory motion artifact. There is good quality opacification of the pulmonary arteries. No intraluminal filling defects or other findings to suggest acute pulmonary embolus are demonstrated. Normal caliber pulmonary arteries. No evidence of right ventricular dilatation. No evidence of thoracic aortic aneurysm. There is variant anatomy of common origin of the right brachiocephalic and left common carotid arteries. Otherwise normal branching anatomy of and proximal patency of the great neck vessels. The included upper abdominal visceral vessels are patent proximally. Interim development of bilateral moderate-sized pleural effusions. There is resultant compressive atelectasis of significant portions of both lower lobes. Reticular, nodular, and groundglass opacities are seen throughout both lungs but especially in the upper lobes bilaterally. This is overall a new finding since the prior exam. Parenchymal opacities in the right lung apex may reflect a component of parenchymal scarring, although this appears decreased from the prior exam some may reflect some residual acute disease. The heart size is normal. There is trace pericardial effusion. There is an endotracheal tube in good position. This is a new finding. There are tracheal secretions noted near the tip of the endotracheal tube. No extraluminal gas is noted. There is a nasogastric tube in place, tip at the level of the gastric body, in good position. Calcified granulomatous lymph nodes are noted in the mediastinum. No mediastinal or hilar mass or adenopathy. The thyroid is unremarkable. No axillary or chest wall mass or adenopathy. There is diffuse generalized edema of the subcutaneous and mediastinal fat. The bones demonstrate evidence of endplate destruction involving the L1-L2 disc. This is a new finding since prior exam. There are less severe changes at the T12-L1 disc which were reported previously and appears similar. The included upper abdominal anatomy is discussed on the report of a CT abdomen and pelvis performed at the same time. Impression: No evidence of acute pulmonary embolus Evidence of anasarca, with diffuse edema of the mediastinal and subcutaneous fat as well as bilateral pleural effusions, trace pericardial fluid. Diffuse bilateral pulmonary parenchymal opacities. This may reflect infectious/inflammatory process, but could also indicate pulmonary edema related to the above Evidence of satisfactory endotracheal and nasogastric intubation Compressive bilateral atelectasis related to the pleural fluid Marked erosive changes involving the endplates adjacent to the L1-2 disc. This is a new finding since the prior exam and is concerning for osteomyelitis/discitis. Recommend further evaluation with contrast MRI. Less severe erosive changes surrounding the T12-L1 disc. This was also previously reported, could also represent discitis/osteomyelitis but could also represent advanced degenerative changes. This appears stable since the previous study Other findings as noted, including calcified granulomatous lymph nodes, tracheal secretions This agrees with the preliminary interpretation provided overnight by [facility] teleradiology service. The CT scanner at [facility] is accredited by the [employer] and the scans are performed using protocols designed to limit radiation exposure to as low as reasonably achievable to attain images of sufficient resolution adequate for diagnostic evaluation.
--- NOTE | 2019-03-29 19:08 | NUR ---
RESPIRATORY NOTE: Received pt on AC 16, 600VT, 40%, PEEP +5. Pt intubated w/ ETT 7.5 @ 24cm lipline, secured by anchorfast. Pt alert/awake, follows commands. B/S jared. rhonchi, sxn small amounts of thick, godwin-yellow secretions. Both hands on soft restraints to prevent pt from self-extubation. Vent plugged into red outlet, ambubag at bedside. Pt in no apparent distress at this time. Will continue to monitor pt.
--- NOTE | 2019-03-29 19:14 | Diagnostic Imaging Report ---
Clinical Indication: Pain, severe sepsis, decubitus skin ulcer, pneumonia Technique: Patient given oral contrast. IV administration nonionic contrast. Venous phase spiral acquisition obtained through the abdomen and pelvis. Multiplanar reconstructions were generated. Total dose length product 1721.78 mGycm. CTDIvol(s) 18.72,15.23 mGy. Dose reduction achieved using automated exposure control Comparison: No comparison CTs. Reference made to abdominal radiograph of earlier the same day Findings: There are destructive changes of the L1-2 disc, with advanced erosive changes of the adjacent endplates, particularly the inferior aspect of L1, and apparent widening of the disc base. There are also destructive changes of the T12-L1 disc, with endplate erosions as well. This appears more indolent than the L1-2 process, as there are sclerotic changes on both sides of the disc as well as advanced surrounding proliferative changes. Advanced degenerative changes are seen also at L2-3, L4-5, and L5-S1, but at these levels the disc margins appear to be preserved. There is suggestion of inflammation of the soft tissues surrounding the L1-2 disc. Within the left psoas muscle, there is a low-attenuation collection which measures 3.2 cm transverse by 3.5 cm AP by 12 cm in length. There is generalized anasarca, with diffuse edema of the subcutaneous, mesenteric, and retroperitoneal fat. There are also bilateral pleural effusions and trace pericardial fluid. Decubitus ulceration is seen in the retrococcygeal region. This may result in exposure of the bone. No definite osseous erosions are demonstrated, however. No evidence of diverticulosis or diverticulitis. The appendix is not definitely identified, but no definite findings to suggest acute appendicitis are evident. No small bowel distention or small bowel wall thickening. Ingested contrast has traversed the entirety of the small bowel and reached the cecum No free or loculated intraperitoneal gas or fluid is evident. The distal esophagus and stomach are unremarkable except for the presence of an enteric tube. The duodenum is unremarkable. The gallbladder is distended, no stones. A cyst is seen in segment 3 of the liver. Subcentimeter low-attenuation lesions are also demonstrated within the liver, too small to characterize. No biliary ductal dilatation. The pancreas is somewhat atrophic, otherwise unremarkable. The spleen and right adrenal are unremarkable. Calcifications are seen in the left adrenal. Multiple cysts are seen coming off of the right kidney. Left kidney demonstrates a subcentimeter low-attenuation lesion which is too small to characterize. No renal or ureteral calculi, hydronephrosis, or hydroureter. No retroperitoneal or pelvic mass or adenopathy. There is a Jose catheter within the bladder. Findings involving the included portions of the thorax are described on separate CT chest report There is a right femoral central venous catheter in place. The tip is within the common iliac vein. Impression: Advanced erosive changes of the L1-2 disc and adjacent endplates, worrisome for discitis/osteomyelitis. Recommend contrast MRI for further evaluation. Fluid collection within the psoas is concerning for an associated psoas abscess Erosive changes also involving the T12-L1 disc, may be degenerative or infectious/inflammatory Degenerative changes elsewhere, as described Evidence of anasarca, with diffuse edema subcutaneous, mesenteric, retroperitoneal fat, bilateral pleural effusions and trace pericardial fluid Left lobe hepatic cyst. Right renal cysts. Subcentimeter low-attenuation lesions within the liver and left kidney, too small to characterize but statistically most likely representing benign simple cyst. No further follow-up necessary Other findings as noted, including enteric tube, left adrenal calcifications, Jose catheter, right femoral central venous catheter Above findings are essentially agreement with the [facility] preliminary report Retrococcygeal decubitus ulceration. No definite underlying osseous involvement but this cannot be confidently excluded on CT and MRI should be considered if there is high clinical suspicion for osteomyelitis. This was not reported on the [facility] preliminary report, was reported to ICU nurse Vicky at the time of interpretation. [facility] was also notified of the discrepancy The CT scanner at [facility] is accredited by the [employer] and the scans are performed using protocols designed to limit radiation exposure to as low as reasonably achievable to attain images of sufficient resolution adequate for diagnostic evaluation.
--- NOTE | 2019-03-29 19:14 | NUR ---
HAND-OFF: Report given to CELINE Jacinto.
--- NOTE | 2019-03-29 19:18 | NUR ---
NURSE NOTES: Received report from CELINE Brizuela. Patient is alert and awake, responsive to verbal and tactile stimuli. Able to follow commands. ETT 7.5/24cm at lip line and vent setting AC 16, TV 600, FiO2 40% and Peep on 5. NGT intact and running with osmolite 1.5 at 35ml/hr. Right femoral TLC intact, clean and running with Levophed 2mcg/min and D5NS 100ml/hr. Bilateral soft wrist restraints noted. Skin intact and clean on bilateral wrist restraints sites. Call light placed in easy reach. Will continue plan of care.
[2019-03-29] MEDS: Dyna-Hex 2% Top Sol 2oz TOPIC SCH (19:52)
--- NOTE | 2019-03-29 20:05 | NUR ---
NURSE NOTES: Oral care provided and repositioned patient.
--- NOTE | 2019-03-29 21:02 | NUR ---
NURSE NOTES: All due med given. No change in condition. Will continue plan of care.
--- NOTE | 2019-03-29 22:10 | NUR ---
NURSE NOTES: Repositioned patient.
[2019-03-30] VITALS (43 sets, daily range): BP systolic 83–145; BP diastolic 34–107
--- NOTE | 2019-03-30 00:02 | NUR ---
NURSE NOTES: Repositioned patient. No NGT feeding residual noted. Tube feeding increased to 45ml/hr.
[2019-03-30] MEDS: Phenylephrine 50 MG in D5W 245 ML IV SCH (01:45)
--- NOTE | 2019-03-30 01:58 | NUR ---
NURSE NOTES: Bed bath and oral care provided. Patient tolerated well.
[2019-03-30] MEDS: D5NS 1,000 ML IV SCH ×2 (03:59→15:00)
--- NOTE | 2019-03-30 04:05 | NUR ---
NURSE NOTES: Repositioned patient. Will continue plan of care.
[2019-03-30] MEDS: Piperacillin/Tazobactam 3.375 GM in NS 110 ML IVPB SCH ×3 (05:22→21:35)
[2019-03-30 06:00] LABS: ALANINE AMINOTRANSFERASE 10 U/L (12-78); ALBUMIN/GLOBULIN RATIO 0.2 (1.0-2.7); ALKALINE PHOSPHATASE 96 U/L (46-116); ANION GAP 10 mmol/L (5-15); ASPARTATE AMINO TRANSFERASE 28 U/L (15-37); BILIRUBIN,TOTAL 0.5 MG/DL (0.2-1.0); BLOOD UREA NITROGEN 15 mg/dL (7-18); CARBON DIOXIDE 23 MMOL/L (21-32); CHLORIDE 106 MMOL/L (98-107); CREATININE 1.1 MG/DL (0.55-1.30); POTASSIUM 3.7 MMOL/L (3.5-5.1); SODIUM 139 MMOL/L (136-145)
--- NOTE | 2019-03-30 06:00 | NUR ---
NURSE NOTES: VSS. Hold levophed. Will continue to monitor.
--- NOTE | 2019-03-30 06:30 | NUR ---
NURSE NOTES: BP 83/43. Restarted levophed. Will continue plan of care.
--- NOTE | 2019-03-30 07:30 | NUR ---
HAND-OFF: Report given to CELINE Fontana. Endorsed plan of care.
[2019-03-30 07:42] LABS: BASOPHILS % (AUTO) 0.2 % (0.0-2.0); EOSINOPHILS % (AUTO) 0.5 % (0.0-3.0); HEMATOCRIT 27.6 % (42.0-52.0); HEMOGLOBIN 8.7 G/DL (14.2-18.0); LYMPHOCYTES % (AUTO) 16.3 % (20.0-45.0); MEAN CORPUSCULAR VOLUME 90 FL (80-99); MONOCYTES % (AUTO) 2.9 % (1.0-10.0); NEUTROPHILS % (AUTO) 80.1 % (45.0-75.0); PLATELET COUNT 100 K/UL (150-450); RED BLOOD COUNT 3.09 M/UL (4.70-6.10); RED CELL DISTRIBUTION WIDTH 16.1 % (11.6-14.8); WHITE BLOOD COUNT 10.1 K/UL (4.8-10.8)
--- NOTE | 2019-03-30 08:40 | NUR ---
NURSE NOTES: Patient started in weaning on CPAP with PS of 8 FIO2: 40% with peep of 5, patient noted coughing up thick secretions and SOB with tachycardia at 130 BPM. patient placed back to AC 16, TV: 600 FIO2: 40% with peep of 5 after one minute,
--- NOTE | 2019-03-30 08:40 | NUR ---
RESPIRATORY NOTE: Pt suctioned small amount, deflated cuff. Pt placed on CPAP PS8 for 10 mins. Pt became agitated, HR 124, coughing a lot, pt requested to put back on AC. CELINE Fontana noted.
--- NOTE | 2019-03-30 08:40 | NUR ---
NURSE NOTES: Patient placed on weaning trial with setting of CPAP with PS of 8 with FIO2 30% with Peep of 5. HR is 97, with saturations of 100% with RR of 22 patient is awake and lightly sedated with fentanyl at 50mcg/hr, patient denies any pain over body. Addendum: 03/30/19 at 1605 by NATHANAEL BURNS RN placed on incorrect chart.
--- NOTE | 2019-03-30 09:14 | GI Progress Note ---
Assessment/Plan Problems: (1) GI bleed ICD Codes: K92.2 - Gastrointestinal hemorrhage, unspecified SNOMED: 01215319 (2) Anemia ICD Codes: D64.9 - Anemia, unspecified SNOMED: 248533659 (3) Respiratory distress ICD Codes: R06.03 - Acute respiratory distress SNOMED: 633630557 (4) Electrolyte abnormality ICD Codes: E87.8 - Other disorders of electrolyte and fluid balance, not elsewhere classified SNOMED: 540929311 Status: unchanged Status Narrative Discussed with Dr. Roche. Assessment/Plan SUMMARY OF FINDINGS: Gastritis, otherwise normal upper endoscopic examination. RECOMMENDATIONS: Follow biopsy results and treat accordingly. start GTFs electrolyte correction prn transfusions ppi The patient was seen and examined at bedside and all new and available data was reviewed in the patients chart. I agree with the above findings, impression and plan. (Patient seen earlier today. Signature stamp does not reflect patient encounter time.). - Sergei Roche MD Subjective Subjective limited Objective Last 24 Hour Vital Signs Date Time Temp Pulse Resp B/P (MAP) Pulse Ox O2 Delivery O2 Flow Rate FiO2 03/30/19 07:00 80 17 145/58 (87) 100 03/30/19 07:00 80 17 145/58 (87) 100 03/30/19 07:00 145/58 03/30/19 06:58 79 16 40 03/30/19 06:45 72 16 84/43 (57) 100 03/30/19 06:30 67 17 101/52 (68) 100 03/30/19 06:30 83/43 03/30/19 06:00 105/47 03/30/19 06:00 58 16 114/43 (66) 100 03/30/19 05:30 65 16 110/43 (65) 100 03/30/19 05:15 66 16 40 03/30/19 05:00 117/42 03/30/19 05:00 62 16 117/42 (67) 100 03/30/19 04:30 67 16 116/55 (75) 100 03/30/19 04:00 40 03/30/19 04:00 Mechanical Ventilator 03/30/19 04:00 99/49 03/30/19 04:00 97.5 62 6 99/49 (66) 100 03/30/19 04:00 68 03/30/19 03:30 77 12 137/97 (110) 100 03/30/19 03:00 112/48 03/30/19 03:00 59 16 112/48 (69) 100 03/30/19 02:42 56 16 40 03/30/19 02:30 65 16 112/50 (70) 100 03/30/19 02:00 112/54 03/30/19 02:00 75 16 130/65 (86) 100 03/30/19 01:30 56 6 128/58 (81) 100 03/30/19 01:00 66 16 138/62 (87) 100 03/30/19 01:00 138/62 03/30/19 00:50 61 17 40 03/30/19 00:30 55 16 116/63 (80) 100 03/30/19 00:00 40 03/30/19 00:00 97.4 66 15 140/64 (89) 100 03/30/19 00:00 52 03/30/19 00:00 140/64 03/30/19 00:00 Mechanical Ventilator 03/29/19 23:30 52 15 122/63 (82) 100 03/29/19 23:25 53 16 40 03/29/19 23:00 67 16 131/61 (84) 100 03/29/19 23:00 131/61 03/29/19 22:30 55 13 113/56 (75) 100 03/29/19 22:00 53 16 101/60 (74) 100 03/29/19 22:00 101/60 03/29/19 21:30 67 16 121/55 (77) 100 03/29/19 21:00 73 16 109/49 (69) 100 03/29/19 21:00 109/49 03/29/19 20:53 56 16 40 03/29/19 20:30 74 16 136/68 (90) 100 03/29/19 20:00 97.5 54 16 117/46 (69) 100 03/29/19 20:00 117/46 03/29/19 20:00 40 03/29/19 20:00 Mechanical Ventilator 03/29/19 20:00 52 03/29/19 19:30 60 17 105/44 (64) 100 03/29/19 19:06 66 16 40 03/29/19 19:00 57 17 101/54 (70) 100 03/29/19 18:45 117 16 100/51 (67) 100 03/29/19 18:30 79 16 94/40 (58) 100 03/29/19 18:15 60 16 81/48 (59) 100 03/29/19 18:00 62 16 79/44 (56) 100 03/29/19 17:45 66 16 125/55 (78) 100 03/29/19 17:30 70 16 114/56 (75) 100 03/29/19 17:25 64 16 40 03/29/19 17:15 76 16 126/63 (84) 100 03/29/19 17:00 49 16 122/60 (80) 100 03/29/19 16:00 Mechanical Ventilator 03/29/19 16:00 65 03/29/19 16:00 98.6 48 16 103/44 (63) 100 03/29/19 16:00 40 03/29/19 15:00 49 16 112/60 (77) 100 03/29/19 14:38 53 16 40 03/29/19 14:00 54 16 124/57 (79) 100 03/29/19 13:30 49 16 103/44 (63) 100 03/29/19 13:00 52 16 117/55 (75) 100 03/29/19 13:00 53 16 40 03/29/19 12:30 58 16 106/66 (79) 100 03/29/19 12:00 96.7 62 16 115/45 (68) 100 03/29/19 12:00 Mechanical Ventilator 03/29/19 12:00 40 03/29/19 12:00 56 03/29/19 11:15 94 16 100/49 (66) 100 03/29/19 11:00 71 15 117/46 (69) 100 03/29/19 11:00 58 15 119/55 (76) 100 03/29/19 10:56 56 16 100 03/29/19 10:55 62 15 115/51 (72) 100 03/29/19 10:50 47 15 93/44 (60) 100 03/29/19 10:48 67 16 40 03/29/19 10:45 51 15 70/34 (46) 100 03/29/19 10:30 98.6 59 15 94/49 (64) 100 8/21/19 10:30 40 03/29/19 10:09 105/45 03/29/19 10:00 71 15 117/46 (69) 100 03/29/19 09:30 68 16 113/52 (72) 100 Intake and Output 03/29/19 03/30/19 18:59 06:59 Intake Total 1491.5 ml 2210.000 ml Output Total 675 ml 1010 ml Balance 816.5 ml 1200.000 ml Intake Free Water 120 ml IV Total 1421.5 ml 1645.000 ml Tube Feeding 70 ml 445 ml Output Urine Total 675 ml 1010 ml # Bowel Movements 1 1 Laboratory Tests Test 03/30/19 04:35 White Blood Count 10.1 K/UL (4.8-10.8) Red Blood Count 3.09 M/UL (4.70-6.10) L Hemoglobin 8.7 G/DL (14.2-18.0) L Hematocrit 27.6 % (42.0-52.0) L Mean Corpuscular Volume 90 FL (80-99) Mean Corpuscular Hemoglobin 28.2 PG (27.0-31.0) Mean Corpuscular Hemoglobin Concent 31.5 G/DL (32.0-36.0) L Red Cell Distribution Width 16.1 % (11.6-14.8) H Platelet Count 100 K/UL (150-450) L Mean Platelet Volume 5.4 FL (6.5-10.1) L Neutrophils (%) (Auto) 80.1 % (45.0-75.0) H Lymphocytes (%) (Auto) 16.3 % (20.0-45.0) L Monocytes (%) (Auto) 2.9 % (1.0-10.0) Eosinophils (%) (Auto) 0.5 % (0.0-3.0) Basophils (%) (Auto) 0.2 % (0.0-2.0) Sodium Level 139 MMOL/L (136-145) Potassium Level 3.7 MMOL/L (3.5-5.1) Chloride Level 106 MMOL/L (98-107) Carbon Dioxide Level 23 MMOL/L (21-32) Anion Gap 10 mmol/L (5-15) Blood Urea Nitrogen 15 mg/dL (7-18) Creatinine 1.1 MG/DL (0.55-1.30) Estimat Glomerular Filtration Rate mL/min (>60) Glucose Level 109 MG/DL (74-106) H Calcium Level 8.0 MG/DL (8.5-10.1) L Total Bilirubin 0.5 MG/DL (0.2-1.0) Aspartate Amino Transf (AST/SGOT) 28 U/L (15-37) Alanine Aminotransferase (ALT/SGPT) 10 U/L (12-78) L Alkaline Phosphatase 96 U/L (46-116) Total Protein 6.4 G/DL (6.4-8.2) Albumin 1.0 G/DL (3.4-5.0) L Globulin 5.4 g/dL Albumin/Globulin Ratio 0.2 (1.0-2.7) L Lipase 60 U/L (73-393) L Height (Feet): 6 Height (Inches): 6.00 Weight (Pounds): 174 General Appearance: no apparent distress Cardiovascular: normal rate Respiratory/Chest: normal breath sounds, no respiratory distress Abdominal Exam: normal bowel sounds, non tender, soft, GT site Extremities: non-tender Tahir Beavers NP Mar 30, 2019 09:14
[2019-03-30] MEDS: Vancomycin 750mg/NS 275ml IVPB SCH ×2 (09:23)
[2019-03-30] MEDS: Zinc Sulfate 220mg cap ORAL SCH (09:26)
[2019-03-30] MEDS: Pantoprazole Inj IVP SCH (09:26)
[2019-03-30] MEDS: Ascorbic Acid 500mg tab ORAL SCH ×2 (09:26→17:07)
[2019-03-30] MEDS: Heparin 5000 units/ml inj SUBQ SCH (09:28)
[2019-03-30] MEDS: Dakin's 0.125% Soln (Quarter Strength) 16oz TOPIC SCH ×2 (09:28→22:24)
--- NOTE | 2019-03-30 09:45 | NUR ---
NURSE NOTES: Dr. Guerra updated on on patient hematology labs this morning. no verbal verbal orders given at this time.
--- NOTE | 2019-03-30 10:15 | NUR ---
NURSE NOTES: Dr. Nicolas updated at the bedside, no verbal orders given at this time. will continue plan of care. Addendum: 03/30/19 at 1605 by NATHANAEL BURNS RN placed on incorrect chart.
--- NOTE | 2019-03-30 11:03 | Infectious Diseases Prog Note ---
Assessment/Plan Assessment/Plan A; Recurrent MRSA sepsis Pneumonia L1-L2 discitis/osteomyelitis Psoas abscess Acute respiratory failure Anemia Gastritis Stage 4 sacral ulcer P; Continue Zosyn & Vancomycin Needs custodial Vancomycin Will f/u cultures Subjective ROS Limited/Unobtainable: Yes Constitutional: Denies: fever Respiratory: Reports: other - failed weaning Neurologic: Reports: confusion, other - on restraint Allergies: Coded Allergies: No Known Allergies (Unverified , 01/18/19) Objective Vital Signs Last 24 Hour Vital Signs Date Time Temp Pulse Resp B/P (MAP) Pulse Ox O2 Delivery O2 Flow Rate FiO2 03/30/19 09:30 90/40 03/30/19 08:40 100 03/30/19 07:00 80 17 145/58 (87) 100 03/30/19 07:00 80 17 145/58 (87) 100 03/30/19 07:00 145/58 03/30/19 06:58 79 16 40 03/30/19 06:45 72 16 84/43 (57) 100 03/30/19 06:30 67 17 101/52 (68) 100 03/30/19 06:30 83/43 03/30/19 06:00 105/47 03/30/19 06:00 58 16 114/43 (66) 100 03/30/19 05:30 65 16 110/43 (65) 100 03/30/19 05:15 66 16 40 03/30/19 05:00 117/42 03/30/19 05:00 62 16 117/42 (67) 100 03/30/19 04:30 67 16 116/55 (75) 100 03/30/19 04:00 40 03/30/19 04:00 Mechanical Ventilator 03/30/19 04:00 99/49 03/30/19 04:00 97.5 62 6 99/49 (66) 100 03/30/19 04:00 68 03/30/19 03:30 77 12 137/97 (110) 100 03/30/19 03:00 112/48 03/30/19 03:00 59 16 112/48 (69) 100 03/30/19 02:42 56 16 40 03/30/19 02:30 65 16 112/50 (70) 100 03/30/19 02:00 112/54 03/30/19 02:00 75 16 130/65 (86) 100 03/30/19 01:30 56 6 128/58 (81) 100 03/30/19 01:00 66 16 138/62 (87) 100 03/30/19 01:00 138/62 03/30/19 00:50 61 17 40 03/30/19 00:30 55 16 116/63 (80) 100 03/30/19 00:00 40 03/30/19 00:00 97.4 66 15 140/64 (89) 100 03/30/19 00:00 52 03/30/19 00:00 140/64 03/30/19 00:00 Mechanical Ventilator 03/29/19 23:30 52 15 122/63 (82) 100 03/29/19 23:25 53 16 40 03/29/19 23:00 67 16 131/61 (84) 100 03/29/19 23:00 131/61 03/29/19 22:30 55 13 113/56 (75) 100 03/29/19 22:00 53 16 101/60 (74) 100 03/29/19 22:00 101/60 03/29/19 21:30 67 16 121/55 (77) 100 03/29/19 21:00 73 16 109/49 (69) 100 03/29/19 21:00 109/49 03/29/19 20:53 56 16 40 03/29/19 20:30 74 16 136/68 (90) 100 03/29/19 20:00 97.5 54 16 117/46 (69) 100 03/29/19 20:00 117/46 03/29/19 20:00 40 03/29/19 20:00 Mechanical Ventilator 03/29/19 20:00 52 03/29/19 19:30 60 17 105/44 (64) 100 03/29/19 19:06 66 16 40 03/29/19 19:00 57 17 101/54 (70) 100 03/29/19 18:45 117 16 100/51 (67) 100 03/29/19 18:30 79 16 94/40 (58) 100 03/29/19 18:15 60 16 81/48 (59) 100 03/29/19 18:00 62 16 79/44 (56) 100 03/29/19 17:45 66 16 125/55 (78) 100 03/29/19 17:30 70 16 114/56 (75) 100 03/29/19 17:25 64 16 40 03/29/19 17:15 76 16 126/63 (84) 100 03/29/19 17:00 49 16 122/60 (80) 100 03/29/19 16:00 Mechanical Ventilator 03/29/19 16:00 65 03/29/19 16:00 98.6 48 16 103/44 (63) 100 03/29/19 16:00 40 03/29/19 15:00 49 16 112/60 (77) 100 03/29/19 14:38 53 16 40 03/29/19 14:00 54 16 124/57 (79) 100 03/29/19 13:30 49 16 103/44 (63) 100 03/29/19 13:00 52 16 117/55 (75) 100 03/29/19 13:00 53 16 40 03/29/19 12:30 58 16 106/66 (79) 100 03/29/19 12:00 96.7 62 16 115/45 (68) 100 03/29/19 12:00 Mechanical Ventilator 03/29/19 12:00 40 03/29/19 12:00 56 03/29/19 11:15 94 16 100/49 (66) 100 03/29/19 11:00 71 15 117/46 (69) 100 03/29/19 11:00 58 15 119/55 (76) 100 Height (Feet): 6 Height (Inches): 6.00 Weight (Pounds): 174 HEENT: other - orally intubated Respiratory/Chest: lungs clear, other - on ventilator Cardiovascular: normal rate, other - R femoral line Abdomen: soft, non tender, other - NG tube feeding Extremities: other - generalized edema Skin: ulcers, other - stage 4 sacral Neurologic/Psychiatric: alert, responsive, disoriented Microbiology Date/Time Source Procedure Growth Status 03/28/19 13:44 Sputum Gram Stain - Final Resulted 03/28/19 13:44 Sputum Culture - Preliminary Staphylococcus Aureus Resulted Laboratory Tests Test 03/30/19 04:35 White Blood Count 10.1 K/UL (4.8-10.8) Red Blood Count 3.09 M/UL (4.70-6.10) L Hemoglobin 8.7 G/DL (14.2-18.0) L Hematocrit 27.6 % (42.0-52.0) L Mean Corpuscular Volume 90 FL (80-99) Mean Corpuscular Hemoglobin 28.2 PG (27.0-31.0) Mean Corpuscular Hemoglobin Concent 31.5 G/DL (32.0-36.0) L Red Cell Distribution Width 16.1 % (11.6-14.8) H Platelet Count 100 K/UL (150-450) L Mean Platelet Volume 5.4 FL (6.5-10.1) L Neutrophils (%) (Auto) 80.1 % (45.0-75.0) H Lymphocytes (%) (Auto) 16.3 % (20.0-45.0) L Monocytes (%) (Auto) 2.9 % (1.0-10.0) Eosinophils (%) (Auto) 0.5 % (0.0-3.0) Basophils (%) (Auto) 0.2 % (0.0-2.0) Sodium Level 139 MMOL/L (136-145) Potassium Level 3.7 MMOL/L (3.5-5.1) Chloride Level 106 MMOL/L (98-107) Carbon Dioxide Level 23 MMOL/L (21-32) Anion Gap 10 mmol/L (5-15) Blood Urea Nitrogen 15 mg/dL (7-18) Creatinine 1.1 MG/DL (0.55-1.30) Estimat Glomerular Filtration Rate mL/min (>60) Glucose Level 109 MG/DL (74-106) H Calcium Level 8.0 MG/DL (8.5-10.1) L Total Bilirubin 0.5 MG/DL (0.2-1.0) Aspartate Amino Transf (AST/SGOT) 28 U/L (15-37) Alanine Aminotransferase (ALT/SGPT) 10 U/L (12-78) L Alkaline Phosphatase 96 U/L (46-116) Total Protein 6.4 G/DL (6.4-8.2) Albumin 1.0 G/DL (3.4-5.0) L Globulin 5.4 g/dL Albumin/Globulin Ratio 0.2 (1.0-2.7) L Lipase 60 U/L (73-393) L Current Medications Medications (Trade) Dose Ordered Sig/Vaughn Route PRN Reason Start Time Stop Time Status Last Admin Dose Admin Acetaminophen (Tylenol) 650 mg Q4H PRN ORAL Mild Pain/Temp > 100.5 03/26/19 17:30 04/25/19 17:29 Albuterol/ Ipratropium (Albuterol/ Ipratropium) 3 ml Q4H PRN HHN Shortness of Breath 03/26/19 17:30 03/31/19 17:29 Ascorbic Acid (Vitamin C) 250 mg TWICE A DAY ORAL 03/27/19 18:00 04/26/19 17:59 03/30/19 09:26 Barium Sulfate (Readi-Cat 2) 450 ml NOW PRN ORAL Radiology Procedure 03/29/19 14:15 03/31/19 14:03 Chlorhexidine Gluconate (Michelle-Hex 2%) 1 applic DAILY@2000 TOPIC 03/27/19 20:00 04/26/19 19:59 03/29/19 19:52 Dextrose/Sodium Chloride 1,000 ml @ 100 mls/hr Q10H IV 03/27/19 16:30 04/26/19 16:29 03/30/19 03:59 Diatrizoate Meglum/ Diatrizoate Sod (Gastrografin) 30 ml NOW PRN ORAL Radiology Procedure 03/29/19 14:15 03/31/19 14:14 Fentanyl Citrate 1000 mcg/Sodium Chloride 100 ml @ 0 mls/hr Q24H IV 03/28/19 14:45 04/04/19 14:44 03/28/19 20:47 Heparin Sodium (Porcine) (Heparin 5000 units/ml) 5,000 units EVERY 12 HOURS SUBQ 03/27/19 09:00 04/26/19 08:59 03/30/19 09:28 Iopamidol (Isovue-300 100ml) 100 ml NOW PRN INJ Radiology Procedure 03/29/19 14:15 03/31/19 14:14 Iopamidol (Isovue-370 150ml) 150 ml NOW PRN INJ Radiology Procedure 03/29/19 14:15 03/31/19 14:03 Midazolam HCl (Versed 2mg/2ml vial) 1 mg Q2H PRN IVP For Anxiety 03/28/19 14:45 04/27/19 14:44 Midodrine (Pro-Amatine) 5 mg THREE TIMES A DAY ORAL 03/28/19 18:00 04/27/19 17:59 03/30/19 09:26 Norepinephrine Bitartrate 8 mg/ Dextrose 500 ml @ 0 mls/hr Q24H IV 03/27/19 07:00 04/26/19 06:59 03/29/19 10:09 Pantoprazole (Protonix) 40 mg DAILY IVP 03/27/19 09:00 04/26/19 08:59 03/30/19 09:26 Phenylephrine HCl 50 mg/Dextrose 250 ml @ 0 mls/hr Q24H IV 03/27/19 01:45 04/26/19 01:44 03/27/19 13:43 Piperacillin Sod/ Tazobactam Sod 3.375 gm/Sodium Chloride 110 ml @ 27.5 mls/hr EVERY 8 HOURS IVPB 03/26/19 22:00 04/04/19 21:59 03/30/19 05:22 Sodium Hypochlorite (Dakin's Quarter Strength) 1 applic DAILY TOPIC 03/28/19 00:00 04/27/19 00:00 03/30/19 09:28 Vancomycin HCl (Vanco rx to dose) 1 ea DAILY PRN MISC Per rx protocol 03/27/19 16:00 04/26/19 15:59 Vancomycin HCl 750 mg/Sodium Chloride 275 ml @ 183.333 mls/hr Q12HR@0800,2000 IVPB 03/29/19 08:00 04/03/19 07:59 03/30/19 09:23 Zinc Sulfate (Zinc Sulfate) 220 mg DAILY ORAL 03/28/19 09:00 04/27/19 08:59 03/30/19 09:26 Isaac Martinez MD Mar 30, 2019 11:03
--- NOTE | 2019-03-30 11:07 | Hematology/Onc Progress Note ---
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 Favor scarring, but the possibility of neoplasm cannot be ruled out. 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, r/o mets --> patient is on pressors so hold off on diagnosis until more stable --> at some point will need a tissue diagnosis, as well as further w/u --> given advanced age, hold off on any extensive immediate care --> pulm has been consulted as well, before was on xarelto # DVT + Pulmonary embolism history could be related to mass/malignancy * HYPERCOAGULABLE DISORDER* --> on xarelto, okay to dc to snf on this --> Once peg placed, NOW restarted xarelto --> heparin sq for dvt ppx # Thrombocytopenia likely due to infection --> trend 203-->124-->121-->100k --> smear reviewed and no schistocytes noted # Leukocytosis is 2/2 septic shock with uti --> has been started on abx (vanc/zosyn) --> further w/u for altered mental status --> wbc 14-->19.7-->21-->9.6 # Iron Overload --> Ferrtin 1327 continue to monitor consider chelation therapy prior to blood tx. --> on iv iron # Renal insufficiency --> as per renal recs # Respiratory failure is on vent --> sbp per pulm # Hypotension on fluids now better --> abx and pressors # DVT ppx --> heparin sq dced and xarelto started The timing of this note does not necessarily reflect the time of the patient was seen. GREATLY APPRECIATE CONSULTATION. Subjective Constitutional: Denies: no symptoms, chills, fever, malaise, weakness, other HEENT: Denies: no symptoms, eye pain, blurred vision, tearing, double vision, ear pain, ear discharge, nose pain, nose congestion, throat pain, throat swelling, mouth pain, mouth swelling, other Cardiovascular: Denies: no symptoms, chest pain, edema, irregular heart rate, lightheadedness, palpitations, syncope, other Respiratory: Denies: no symptoms, cough, shortness of breath, SOB with excertion, SOB at rest, sputum, wheezing, other Genitourinary: Denies: no symptoms, burning, discharge, frequency, flank pain, hematuria, incontinence, pain, urgency, other Neurologic/Psychiatric: Denies: no symptoms, anxiety, depressed, emotional problems, headache, numbness, paresthesia, pre-existing deficit, seizure, tingling, tremors, weakness, other Endocrine: Denies: no symptoms, excessive sweating, flushing, intolerance to cold, intolerance to heat, increased hunger, increased thirst, increased urine, unexplained weight gain, unexplained weight loss, other Allergies: Coded Allergies: No Known Allergies (Unverified , 01/18/19) Subjective 03/28: labs have been reviewed, hgb is less than 7, hgb 6.5, and prbc that has been ordered 03/29: in icu, on abx, no signs of distress, blood tx completed, labs reviewed 03/30: hgb is better, remains in the icu, on pressors levo, otherwsise gtf started Objective Objective Current Medications Medications (Trade) Dose Ordered Sig/Vaughn Route PRN Reason Start Time Stop Time Status Last Admin Dose Admin Acetaminophen (Tylenol) 650 mg Q4H PRN ORAL Mild Pain/Temp > 100.5 03/26/19 17:30 04/25/19 17:29 Albuterol/ Ipratropium (Albuterol/ Ipratropium) 3 ml Q4H PRN HHN Shortness of Breath 03/26/19 17:30 03/31/19 17:29 Ascorbic Acid (Vitamin C) 250 mg TWICE A DAY ORAL 03/27/19 18:00 04/26/19 17:59 03/30/19 09:26 Barium Sulfate (Readi-Cat 2) 450 ml NOW PRN ORAL Radiology Procedure 03/29/19 14:15 03/31/19 14:03 Chlorhexidine Gluconate (Michelle-Hex 2%) 1 applic DAILY@2000 TOPIC 03/27/19 20:00 04/26/19 19:59 03/29/19 19:52 Dextrose/Sodium Chloride 1,000 ml @ 100 mls/hr Q10H IV 03/27/19 16:30 04/26/19 16:29 03/30/19 03:59 Diatrizoate Meglum/ Diatrizoate Sod (Gastrografin) 30 ml NOW PRN ORAL Radiology Procedure 03/29/19 14:15 03/31/19 14:14 Fentanyl Citrate 1000 mcg/Sodium Chloride 100 ml @ 0 mls/hr Q24H IV 03/28/19 14:45 04/04/19 14:44 03/28/19 20:47 Heparin Sodium (Porcine) (Heparin 5000 units/ml) 5,000 units EVERY 12 HOURS SUBQ 03/27/19 09:00 04/26/19 08:59 03/30/19 09:28 Iopamidol (Isovue-300 100ml) 100 ml NOW PRN INJ Radiology Procedure 03/29/19 14:15 03/31/19 14:14 Iopamidol (Isovue-370 150ml) 150 ml NOW PRN INJ Radiology Procedure 03/29/19 14:15 03/31/19 14:03 Midazolam HCl (Versed 2mg/2ml vial) 1 mg Q2H PRN IVP For Anxiety 03/28/19 14:45 04/27/19 14:44 Midodrine (Pro-Amatine) 5 mg THREE TIMES A DAY ORAL 03/28/19 18:00 04/27/19 17:59 03/30/19 09:26 Norepinephrine Bitartrate 8 mg/ Dextrose 500 ml @ 0 mls/hr Q24H IV 03/27/19 07:00 04/26/19 06:59 03/29/19 10:09 Pantoprazole (Protonix) 40 mg DAILY IVP 03/27/19 09:00 04/26/19 08:59 03/30/19 09:26 Phenylephrine HCl 50 mg/Dextrose 250 ml @ 0 mls/hr Q24H IV 03/27/19 01:45 04/26/19 01:44 03/27/19 13:43 Piperacillin Sod/ Tazobactam Sod 3.375 gm/Sodium Chloride 110 ml @ 27.5 mls/hr EVERY 8 HOURS IVPB 03/26/19 22:00 04/04/19 21:59 03/30/19 05:22 Sodium Hypochlorite (Dakin's Quarter Strength) 1 applic DAILY TOPIC 03/28/19 00:00 04/27/19 00:00 03/30/19 09:28 Vancomycin HCl (Vanco rx to dose) 1 ea DAILY PRN MISC Per rx protocol 03/27/19 16:00 04/26/19 15:59 Vancomycin HCl 750 mg/Sodium Chloride 275 ml @ 183.333 mls/hr Q12HR@0800,1999 IVPB 03/29/19 08:00 04/03/19 07:59 03/30/19 09:23 Zinc Sulfate (Zinc Sulfate) 220 mg DAILY ORAL 03/28/19 09:00 04/27/19 08:59 03/30/19 09:26 Last 24 Hour Vital Signs Date Time Temp Pulse Resp B/P (MAP) Pulse Ox O2 Delivery O2 Flow Rate FiO2 03/30/19 11:00 64 16 40 03/30/19 09:30 90/40 03/30/19 08:40 100 03/30/19 07:00 80 17 145/58 (87) 100 03/30/19 07:00 80 17 145/58 (87) 100 03/30/19 07:00 145/58 03/30/19 06:58 79 16 40 03/30/19 06:45 72 16 84/43 (57) 100 03/30/19 06:30 67 17 101/52 (68) 100 03/30/19 06:30 83/43 03/30/19 06:00 105/47 03/30/19 06:00 58 16 114/43 (66) 100 03/30/19 05:30 65 16 110/43 (65) 100 03/30/19 05:15 66 16 40 03/30/19 05:00 117/42 03/30/19 05:00 62 16 117/42 (67) 100 03/30/19 04:30 67 16 116/55 (75) 100 03/30/19 04:00 40 03/30/19 04:00 Mechanical Ventilator 03/30/19 04:00 99/49 03/30/19 04:00 97.5 62 6 99/49 (66) 100 03/30/19 04:00 68 03/30/19 03:30 77 12 137/97 (110) 100 03/30/19 03:00 112/48 03/30/19 03:00 59 16 112/48 (69) 100 03/30/19 02:42 56 16 40 03/30/19 02:30 65 16 112/50 (70) 100 03/30/19 02:00 112/54 03/30/19 02:00 75 16 130/65 (86) 100 03/30/19 01:30 56 6 128/58 (81) 100 03/30/19 01:00 66 16 138/62 (87) 100 03/30/19 01:00 138/62 03/30/19 00:50 61 17 40 03/30/19 00:30 55 16 116/63 (80) 100 03/30/19 00:00 40 03/30/19 00:00 97.4 66 15 140/64 (89) 100 03/30/19 00:00 52 03/30/19 00:00 140/64 03/30/19 00:00 Mechanical Ventilator 03/29/19 23:30 52 15 122/63 (82) 100 03/29/19 23:25 53 16 40 03/29/19 23:00 67 16 131/61 (84) 100 03/29/19 23:00 131/61 03/29/19 22:30 55 13 113/56 (75) 100 03/29/19 22:00 53 16 101/60 (74) 100 03/29/19 22:00 101/60 03/29/19 21:30 67 16 121/55 (77) 100 03/29/19 21:00 73 16 109/49 (69) 100 03/29/19 21:00 109/49 03/29/19 20:53 56 16 40 03/29/19 20:30 74 16 136/68 (90) 100 03/29/19 20:00 97.5 54 16 117/46 (69) 100 03/29/19 20:00 117/46 03/29/19 20:00 40 03/29/19 20:00 Mechanical Ventilator 03/29/19 20:00 52 03/29/19 19:30 60 17 105/44 (64) 100 03/29/19 19:06 66 16 40 03/29/19 19:00 57 17 101/54 (70) 100 03/29/19 18:45 117 16 100/51 (67) 100 03/29/19 18:30 79 16 94/40 (58) 100 03/29/19 18:15 60 16 81/48 (59) 100 03/29/19 18:00 62 16 79/44 (56) 100 03/29/19 17:45 66 16 125/55 (78) 100 03/29/19 17:30 70 16 114/56 (75) 100 03/29/19 17:25 64 16 40 03/29/19 17:15 76 16 126/63 (84) 100 03/29/19 17:00 49 16 122/60 (80) 100 03/29/19 16:00 Mechanical Ventilator 03/29/19 16:00 65 03/29/19 16:00 98.6 48 16 103/44 (63) 100 03/29/19 16:00 40 03/29/19 15:00 49 16 112/60 (77) 100 03/29/19 14:38 53 16 40 03/29/19 14:00 54 16 124/57 (79) 100 03/29/19 13:30 49 16 103/44 (63) 100 03/29/19 13:00 52 16 117/55 (75) 100 03/29/19 13:00 53 16 40 03/29/19 12:30 58 16 106/66 (79) 100 03/29/19 12:00 96.7 62 16 115/45 (68) 100 03/29/19 12:00 Mechanical Ventilator 03/29/19 12:00 40 03/29/19 12:00 56 03/29/19 11:15 94 16 100/49 (66) 100 03/29/19 11:00 71 15 117/46 (69) 100 03/29/19 11:00 58 15 119/55 (76) 100 03/29/19 10:56 56 16 100 03/29/19 10:55 62 15 115/51 (72) 100 03/29/19 10:50 47 15 93/44 (60) 100 03/29/19 10:48 67 16 40 03/29/19 10:45 51 15 70/34 (46) 100 03/29/19 10:30 98.6 59 15 94/49 (64) 100 03/29/19 10:30 40 03/29/19 10:09 105/45 03/29/19 10:00 71 15 117/46 (69) 100 03/29/19 09:30 68 16 113/52 (72) 100 03/29/19 09:10 100 03/29/19 09:08 40 03/29/19 09:04 70 11 40 03/29/19 09:00 65 14 126/51 (76) 100 03/29/19 08:30 57 16 105/45 (65) 100 03/29/19 08:00 54 03/29/19 08:00 40 03/29/19 08:00 98.6 55 15 108/49 (68) 100 03/29/19 08:00 Mechanical Ventilator 03/29/19 07:20 64 16 40 03/29/19 07:00 57 15 105/45 (65) 100 03/29/19 07:00 15 Mechanical Ventilator 40 03/29/19 07:00 105/45 03/29/19 06:30 57 16 114/45 (68) 100 03/29/19 06:00 57 16 100/43 (62) 100 03/29/19 06:00 16 Mechanical Ventilator 40 03/29/19 06:00 107/41 03/29/19 05:30 58 16 98/41 (60) 100 03/29/19 05:01 60 16 40 03/29/19 05:00 16 Mechanical Ventilator 40 03/29/19 05:00 101/42 03/29/19 05:00 58 16 99/45 (63) 100 03/29/19 04:30 110 16 96/44 (61) 100 03/29/19 04:00 Mechanical Ventilator 03/29/19 04:00 16 Mechanical Ventilator 40 03/29/19 04:00 73/36 03/29/19 04:00 59 03/29/19 04:00 97.6 113 16 73/36 (48) 100 03/29/19 04:00 40 03/29/19 03:00 73 18 111/60 (77) 100 03/29/19 03:00 16 Mechanical Ventilator 40 03/29/19 03:00 100/41 03/29/19 02:45 98 16 100/41 (60) 100 03/29/19 02:38 106 16 40 03/29/19 02:30 69 16 86/53 (64) 100 03/29/19 02:15 71 16 107/38 (61) 100 03/29/19 02:00 16 Mechanical Ventilator 40 03/29/19 02:00 107/38 03/29/19 02:00 62 16 99/42 (61) 100 03/29/19 01:30 80 16 102/45 (64) 100 03/29/19 01:20 16 Mechanical Ventilator 40 03/29/19 01:15 16 Mechanical Ventilator 40 03/29/19 01:10 16 Mechanical Ventilator 40 03/29/19 01:05 16 Mechanical Ventilator 40 03/29/19 01:00 129 16 122/79 (93) 100 03/29/19 01:00 16 Mechanical Ventilator 40 03/29/19 01:00 86/53 03/29/19 01:00 63 17 40 03/29/19 00:30 66 17 100/46 (64) 100 03/29/19 00:00 97.6 59 10 107/38 (61) 100 03/29/19 00:00 16 Mechanical Ventilator 40 03/29/19 00:00 112/58 03/29/19 00:00 78 03/29/19 00:00 Mechanical Ventilator 03/29/19 00:00 40 03/28/19 23:30 62 0 136/65 (88) 100 03/28/19 23:00 16 Mechanical Ventilator 40 03/28/19 23:00 100/41 03/28/19 23:00 67 15 100/46 (64) 100 03/28/19 22:49 59 16 40 03/28/19 22:30 58 16 111/45 (67) 100 03/28/19 22:00 16 Mechanical Ventilator 40 03/28/19 22:00 97/42 03/28/19 22:00 56 15 101/45 (63) 100 03/28/19 21:37 59 17 40 03/28/19 21:30 55 16 100/40 (60) 100 03/28/19 21:17 97.5 03/28/19 21:00 16 Mechanical Ventilator 40 03/28/19 21:00 112/45 03/28/19 21:00 58 16 108/59 (75) 100 03/28/19 20:47 16 Mechanical Ventilator 40 03/28/19 20:30 55 16 93/44 (60) 100 03/28/19 20:00 40 03/28/19 20:00 Mechanical Ventilator 03/28/19 20:00 107/47 03/28/19 20:00 97.5 65 16 121/48 (72) 100 03/28/19 20:00 58 03/28/19 19:00 60 16 108/46 (66) 100 03/28/19 19:00 108/46 03/28/19 18:45 58 16 40 03/28/19 18:30 62 16 100/47 (64) 100 03/28/19 18:00 110/57 03/28/19 18:00 67 16 110/57 (74) 100 03/28/19 17:30 88 21 146/66 (92) 100 03/28/19 17:29 98 21 40 03/28/19 17:00 58 16 97/38 (57) 100 03/28/19 17:00 107/51 03/28/19 17:00 70 18 107/51 (69) 100 03/28/19 16:30 97.2 72 21 112/41 (64) 100 03/28/19 16:00 115/55 03/28/19 16:00 Mechanical Ventilator 03/28/19 16:00 40 03/28/19 16:00 60 03/28/19 16:00 58 16 97/38 (57) 100 03/28/19 15:02 58 16 40 03/28/19 15:00 59 16 121/43 (69) 100 03/28/19 15:00 121/43 03/28/19 14:45 60 16 123/51 (75) 100 03/28/19 14:30 117 16 125/74 (91) 100 03/28/19 14:00 110/57 03/28/19 14:00 58 16 110/57 (74) 100 03/28/19 13:30 85 19 129/69 (89) 100 03/28/19 13:29 60 16 40 03/28/19 13:00 57 16 114/45 (68) 100 03/28/19 13:00 97/82 03/28/19 12:00 Mechanical Ventilator 03/28/19 12:00 103/57 03/28/19 12:00 40 03/28/19 12:00 97.5 61 16 103/57 (72) 100 03/28/19 11:25 59 Intake and Output 03/29/19 03/30/19 18:59 06:59 Intake Total 1491.5 ml 2210.000 ml Output Total 675 ml 1010 ml Balance 816.5 ml 1200.000 ml Intake Free Water 120 ml IV Total 1421.5 ml 1645.000 ml Tube Feeding 70 ml 445 ml Output Urine Total 675 ml 1010 ml # Bowel Movements 1 1 Labs Test 03/27/19 15:45 03/27/19 23:00 03/28/19 03:37 03/28/19 07:25 Lactic Acid Level 3.60 mmol/L (0.4-2.0) 1.80 mmol/L (0.4-2.0) Thyroid Stimulating Hormone (TSH) 22.269 uiU/mL (0.358-3.740) Cortisol 12.6 UG/DL White Blood Count 12.8 K/UL (4.8-10.8) 12.1 K/UL (4.8-10.8) Red Blood Count 2.37 M/UL (4.70-6.10) 2.34 M/UL (4.70-6.10) Hemoglobin 6.7 G/DL (14.2-18.0) 6.5 G/DL (14.2-18.0) Hematocrit 20.9 % (42.0-52.0) 20.8 % (42.0-52.0) Mean Corpuscular Volume 88 FL (80-99) 89 FL (80-99) Mean Corpuscular Hemoglobin 28.3 PG (27.0-31.0) 27.9 PG (27.0-31.0) Mean Corpuscular Hemoglobin Concent 32.1 G/DL (32.0-36.0) 31.5 G/DL (32.0-36.0) Red Cell Distribution Width 16.6 % (11.6-14.8) 16.5 % (11.6-14.8) Platelet Count 119 K/UL (150-450) 124 K/UL (150-450) Mean Platelet Volume 5.0 FL (6.5-10.1) 5.0 FL (6.5-10.1) Neutrophils (%) (Auto) % (45.0-75.0) % (45.0-75.0) Lymphocytes (%) (Auto) % (20.0-45.0) % (20.0-45.0) Monocytes (%) (Auto) % (1.0-10.0) % (1.0-10.0) Eosinophils (%) (Auto) % (0.0-3.0) % (0.0-3.0) Basophils (%) (Auto) % (0.0-2.0) % (0.0-2.0) Differential Total Cells Counted 100 100 Neutrophils % (Manual) 81 % (45-75) 81 % (45-75) Lymphocytes % (Manual) 19 % (20-45) 17 % (20-45) Monocytes % (Manual) 0 % (1-10) 1 % (1-10) Eosinophils % (Manual) 0 % (0-3) 1 % (0-3) Basophils % (Manual) 0 % (0-2) 0 % (0-2) Band Neutrophils 0 % (0-8) 0 % (0-8) Platelet Estimate Decreased Decreased Platelet Morphology Normal Normal Hypochromasia 1+ 1+ Anisocytosis 1+ 1+ Erythrocyte Sedimentation Rate 140 MM/HR (0-20) Prothrombin Time 12.6 SEC (9.30-11.50) Prothromb Time International Ratio 1.2 (0.9-1.1) Activated Partial Thromboplast Time 45 SEC (23-33) Sodium Level 139 MMOL/L (136-145) Potassium Level 3.6 MMOL/L (3.5-5.1) Chloride Level 106 MMOL/L (98-107) Carbon Dioxide Level 24 MMOL/L (21-32) Anion Gap 9 mmol/L (5-15) Blood Urea Nitrogen 18 mg/dL (7-18) Creatinine 1.4 MG/DL (0.55-1.30) Estimat Glomerular Filtration Rate mL/min (>60) Glucose Level 113 MG/DL (74-106) Calcium Level 8.3 MG/DL (8.5-10.1) Total Bilirubin 0.4 MG/DL (0.2-1.0) Aspartate Amino Transf (AST/SGOT) 21 U/L (15-37) Alanine Aminotransferase (ALT/SGPT) 7 U/L (12-78) Alkaline Phosphatase 76 U/L (46-116) C-Reactive Protein, Quantitative 27.4 mg/dL (0.00-0.90) Total Protein 6.1 G/DL (6.4-8.2) Albumin 1.0 G/DL (3.4-5.0) Globulin 5.1 g/dL Albumin/Globulin Ratio 0.2 (1.0-2.7) Test 03/28/19 10:18 03/28/19 15:00 03/29/19 03:47 03/29/19 04:00 Arterial Blood pH 7.443 (7.350-7.450) Arterial Blood Partial Pressure CO2 33.9 mmHg (35.0-45.0) Arterial Blood Partial Pressure O2 160.7 mmHg (75.0-100.0) Arterial Blood HCO3 22.7 mmol/L (22.0-26.0) Arterial Blood Oxygen Saturation 99.1 % (95-100) Arterial Blood Base Excess -1.2 (-2-2) Cristofer Test Positive Free Thyroxine 1.05 NG/DL (0.76-1.46) Triiodothyonine (T3) 48 ng/dL (71-180) Free Triiodothyronine 0.5 pg/mL (2.3-4.2) Triiodothyronine (T3) Uptake 34 % (24-39) Hepatitis A IgM Antibody Negative (Negative) Hepatitis B Surface Antigen Negative (Negative) Hepatitis B Core IgM Antibody Negative (Negative) Hepatitis C Antibody 0.3 s/co ratio (0.0-0.9) HIV (1&2) Antibody Rapid Negative (NEGATIVE) Stool Occult Blood Positive (NEGATIVE) White Blood Count 9.6 K/UL (4.8-10.8) Red Blood Count 2.88 M/UL (4.70-6.10) Hemoglobin 8.1 G/DL (14.2-18.0) Hematocrit 25.6 % (42.0-52.0) Mean Corpuscular Volume 89 FL (80-99) Mean Corpuscular Hemoglobin 28.2 PG (27.0-31.0) Mean Corpuscular Hemoglobin Concent 31.7 G/DL (32.0-36.0) Red Cell Distribution Width 16.2 % (11.6-14.8) Platelet Count 121 K/UL (150-450) Mean Platelet Volume 4.9 FL (6.5-10.1) Neutrophils (%) (Auto) 80.4 % (45.0-75.0) Lymphocytes (%) (Auto) 16.9 % (20.0-45.0) Monocytes (%) (Auto) 2.2 % (1.0-10.0) Eosinophils (%) (Auto) 0.4 % (0.0-3.0) Basophils (%) (Auto) 0.1 % (0.0-2.0) Sodium Level 138 MMOL/L (136-145) Potassium Level 3.1 MMOL/L (3.5-5.1) Chloride Level 107 MMOL/L (98-107) Carbon Dioxide Level 25 MMOL/L (21-32) Anion Gap 6 mmol/L (5-15) Blood Urea Nitrogen 18 mg/dL (7-18) Creatinine 1.2 MG/DL (0.55-1.30) Estimat Glomerular Filtration Rate mL/min (>60) Glucose Level 127 MG/DL (74-106) Calcium Level 8.2 MG/DL (8.5-10.1) Vancomycin Level Trough 20.8 ug/mL (5.0-12.0) Test 03/30/19 04:35 White Blood Count 10.1 K/UL (4.8-10.8) Red Blood Count 3.09 M/UL (4.70-6.10) Hemoglobin 8.7 G/DL (14.2-18.0) Hematocrit 27.6 % (42.0-52.0) Mean Corpuscular Volume 90 FL (80-99) Mean Corpuscular Hemoglobin 28.2 PG (27.0-31.0) Mean Corpuscular Hemoglobin Concent 31.5 G/DL (32.0-36.0) Red Cell Distribution Width 16.1 % (11.6-14.8) Platelet Count 100 K/UL (150-450) Mean Platelet Volume 5.4 FL (6.5-10.1) Neutrophils (%) (Auto) 80.1 % (45.0-75.0) Lymphocytes (%) (Auto) 16.3 % (20.0-45.0) Monocytes (%) (Auto) 2.9 % (1.0-10.0) Eosinophils (%) (Auto) 0.5 % (0.0-3.0) Basophils (%) (Auto) 0.2 % (0.0-2.0) Sodium Level 139 MMOL/L (136-145) Potassium Level 3.7 MMOL/L (3.5-5.1) Chloride Level 106 MMOL/L (98-107) Carbon Dioxide Level 23 MMOL/L (21-32) Anion Gap 10 mmol/L (5-15) Blood Urea Nitrogen 15 mg/dL (7-18) Creatinine 1.1 MG/DL (0.55-1.30) Estimat Glomerular Filtration Rate mL/min (>60) Glucose Level 109 MG/DL (74-106) Calcium Level 8.0 MG/DL (8.5-10.1) Total Bilirubin 0.5 MG/DL (0.2-1.0) Aspartate Amino Transf (AST/SGOT) 28 U/L (15-37) Alanine Aminotransferase (ALT/SGPT) 10 U/L (12-78) Alkaline Phosphatase 96 U/L (46-116) Total Protein 6.4 G/DL (6.4-8.2) Albumin 1.0 G/DL (3.4-5.0) Globulin 5.4 g/dL Albumin/Globulin Ratio 0.2 (1.0-2.7) Lipase 60 U/L (73-393) Height (Feet): 6 Height (Inches): 6.00 Weight (Pounds): 174 Objective PE General: severe distress, chronically Ill ENT: moist mucus membranes Neck: limited range of motion Respiratory: respiratory distress, rhonch ++ vent Cardiovascular: RRr, no mgr Gastrointestinal: normal inspection, soft ++ peg Msk: normal inspection Neuro: responsive, motor weakness Skin: no rash Jake Womack MD Mar 30, 2019 11:07
--- NOTE | 2019-03-30 12:04 | NUR ---
RD ASSESSMENT & RECOMMENDATIONS SEE CARE ACTIVITY FOR COMPLETE ASSESSMENT DAILY ESTIMATED NEEDS: Needs based on Wound, critical care, CHF 78.6kg 25-30 kcals/kg 6382-2086 total kcals 1.25-2 g protein/kg 98-157 g total protein 20-23 mL/kg 1123-5049 total fluid mLs NUTRITION DIAGNOSIS: 1) Increased kcal/ pro needs r/t wound healing as evidenced by full thickness wounds @ sacrum and cinthya R tibia. 2) Swallowing difficulty r/t respiraory status as evidenced by s/p RR, pt now orally intubated, on presor support, on NGT feeding. CURRENT TF:Osmolite 1.5 @60ml/hr x24 hrs ENTERAL NUTRITION RECOMMENDATIONS: Omsolite 1.5 @60ml/hr x24 hrs + Prosource 1 pkt QD to provide 1440ml, 2160kcal, 90g + 11g prot, 1097ml free water - Add Prosource 1pkt daily to meet protein needs - Flush per MD/ HOB over 30 degrees WITHOUT HEMODYANMIC STABILITY, REC TROPHIC FEEDING OF OSMOLITE 1.5 @ 15-20ML/HR ADDITIONAL RECOMMENDATIONS: 1) Obtain a CALIBRATED bed wt 2) Monitor HD stability 3) WOUND CARE: Add BRUCE BID w/ GI access : Continue Vit C and ZnSO4 4) PAID SEARCH SPECIALIST eval upon extubation 5) Monitor lytes, replete as needed 5) PAID SEARCH SPECIALIST eval upon extubation
--- NOTE | 2019-03-30 13:15 | NUR ---
NURSE NOTES: Family updated in weaning attempt in the morning, patient was unable to tolerate weaning with on Cpap with PS 8 HR increased to 130 in sinus tachycardia, coughing up thick secretions and having sob. patient placed back to AC 16, TV: 600, 40% with peep of 5.
--- NOTE | 2019-03-30 13:15 | NUR ---
NURSE NOTES: Dr. Horton at the bedside and ordered to have right IJ to be taken out and have a PICC line inserted, consent obtained at the bedside by Ferny Carmona, radiology team aware of line placement and obtained of consent. Addendum: 03/30/19 at 1605 by NATHANAEL BURNS RN placed on incorrect chart.
[2019-03-30] MEDS: fentaNYL Citrate 1000 MCG in NS 100ml IV SCH (14:45)
--- NOTE | 2019-03-30 15:30 | NUR ---
NURSE NOTES: PICC Line placement inserted by radiology team at the bedside, Patient tolerated placement with no distress noted, Tube feeding restarted at 45ml/hr on Vital A.F. 1.2. Xray taken to verify placement and awaiting for results. Addendum: 03/30/19 at 1605 by NATHANAEL BURNS RN placed on incorrect chart.
--- NOTE | 2019-03-30 15:35 | NUR ---
NURSE NOTES: Family members at the bedside updated on patient medication and use. patient repositioned to release pressure on sacral wound. Levophed decreased to 1.5mcg/min. patient remains tolerating tube feeding and tube remains in place.
[2019-03-30] MEDS ORDERED: Xarelto 10mg tab GT SCH (16:30)
--- NOTE | 2019-03-30 16:35 | NUR ---
NURSE NOTES: Received patient from CEILNE Perry. Patient in stable condition, vent dependent. In no apparent distress at this time. Bilateral soft wrist restraints noted. Jose cath noted with urine in drainage bag. Contact isolation observed. Will continue plan of care.
--- NOTE | 2019-03-30 16:49 | Cardiac Electrophysiology PN ---
Assessment/Plan Assessment/Plan 1. Septic shock. Blood Cx positive for GP cocci. Off Levophed and on Midodrine as well as IV antibiotics. Echocardiogram showed ejection fraction of 60 to 65 percent with mild diastolic dysfunction. 2. Bradycardia. DC Midodrine when off pressors 2. Respiratory failure, likely due to pneumonia. The patient is on broad- spectrum IV antibiotics. 3. Mild diastolic dysfunction with elevated BNP. 4. History of PE. On Heparin. Chest CT no PE bilateral effusion 5. UTI. AVERY RN and Dr Bello Subjective Subjective Intubated on the vent and off Levophed . Had EGD that showed gastritis Objective Last 24 Hour Vital Signs Date Time Temp Pulse Resp B/P (MAP) Pulse Ox O2 Delivery O2 Flow Rate FiO2 03/30/19 15:30 79 16 123/45 (71) 10 03/30/19 15:23 59 16 40 03/30/19 15:00 69 16 137/54 (81) 100 03/30/19 15:00 137/54 03/30/19 14:30 68 16 98/56 (70) 100 03/30/19 14:00 65 16 88/46 (60) 100 03/30/19 13:30 60 16 100/66 (77) 100 03/30/19 13:00 63 16 128/74 (92) 100 03/30/19 12:53 81 25 40 03/30/19 12:30 63 17 97/34 (55) 100 03/30/19 12:00 Mechanical Ventilator 03/30/19 12:00 97.3 65 16 100/48 (65) 100 03/30/19 12:00 55 03/30/19 11:30 63 16 97/51 (66) 100 03/30/19 11:15 87/38 03/30/19 11:15 66 16 83/38 (53) 100 03/30/19 11:00 63 16 145/58 (87) 100 03/30/19 11:00 64 16 40 03/30/19 10:30 78 16 119/54 (75) 100 03/30/19 10:00 65 16 128/48 (74) 100 03/30/19 09:30 108 16 90/40 (57) 100 03/30/19 09:30 90/40 03/30/19 09:00 106 16 116/63 (80) 100 03/30/19 08:41 40 03/30/19 08:40 78 17 40 03/30/19 08:40 100 03/30/19 08:40 40 03/30/19 08:30 120 17 135/63 (87) 100 03/30/19 08:00 40 03/30/19 08:00 Mechanical Ventilator 03/30/19 08:00 96.8 109 16 122/107 (112) 100 03/30/19 08:00 52 03/30/19 07:30 65 15 122/47 (72) 100 03/30/19 07:00 80 17 145/58 (87) 100 03/30/19 07:00 80 17 145/58 (87) 100 03/30/19 07:00 145/58 03/30/19 06:58 79 16 40 03/30/19 06:45 72 16 84/43 (57) 100 03/30/19 06:30 67 17 101/52 (68) 100 03/30/19 06:30 83/43 03/30/19 06:00 105/47 03/30/19 06:00 58 16 114/43 (66) 100 03/30/19 05:30 65 16 110/43 (65) 100 03/30/19 05:15 66 16 40 03/30/19 05:00 117/42 03/30/19 05:00 62 16 117/42 (67) 100 03/30/19 04:30 67 16 116/55 (75) 100 03/30/19 04:00 40 03/30/19 04:00 Mechanical Ventilator 03/30/19 04:00 99/49 03/30/19 04:00 97.5 62 6 99/49 (66) 100 03/30/19 04:00 68 03/30/19 03:30 77 12 137/97 (110) 100 03/30/19 03:00 112/48 03/30/19 03:00 59 16 112/48 (69) 100 03/30/19 02:42 56 16 40 03/30/19 02:30 65 16 112/50 (70) 100 03/30/19 02:00 112/54 03/30/19 02:00 75 16 130/65 (86) 100 03/30/19 01:30 56 6 128/58 (81) 100 03/30/19 01:00 66 16 138/62 (87) 100 03/30/19 01:00 138/62 03/30/19 00:50 61 17 40 03/30/19 00:30 55 16 116/63 (80) 100 03/30/19 00:00 40 03/30/19 00:00 97.4 66 15 140/64 (89) 100 03/30/19 00:00 52 03/30/19 00:00 140/64 03/30/19 00:00 Mechanical Ventilator 03/29/19 23:30 52 15 122/63 (82) 100 03/29/19 23:25 53 16 40 03/29/19 23:00 67 16 131/61 (84) 100 03/29/19 23:00 131/61 03/29/19 22:30 55 13 113/56 (75) 100 03/29/19 22:00 53 16 101/60 (74) 100 03/29/19 22:00 101/60 03/29/19 21:30 67 16 121/55 (77) 100 03/29/19 21:00 73 16 109/49 (69) 100 03/29/19 21:00 109/49 03/29/19 20:53 56 16 40 03/29/19 20:30 74 16 136/68 (90) 100 03/29/19 20:00 97.5 54 16 117/46 (69) 100 03/29/19 20:00 117/46 03/29/19 20:00 40 03/29/19 20:00 Mechanical Ventilator 03/29/19 20:00 52 03/29/19 19:30 60 17 105/44 (64) 100 03/29/19 19:06 66 16 40 03/29/19 19:00 57 17 101/54 (70) 100 03/29/19 18:45 117 16 100/51 (67) 100 03/29/19 18:30 79 16 94/40 (58) 100 03/29/19 18:15 60 16 81/48 (59) 100 03/29/19 18:00 62 16 79/44 (56) 100 03/29/19 17:45 66 16 125/55 (78) 100 03/29/19 17:30 70 16 114/56 (75) 100 03/29/19 17:25 64 16 40 8/21/19 17:15 76 16 126/63 (84) 100 03/29/19 17:00 49 16 122/60 (80) 100 Intake and Output 03/29/19 03/30/19 19:00 07:00 Intake Total 1519.0 ml 2158.800 ml Output Total 675 ml 1010 ml Balance 844.0 ml 1148.800 ml Intake Free Water 120 ml IV Total 1294.0 ml 1748.800 ml Tube Feeding 105 ml 410 ml Output Urine Total 675 ml 1010 ml # Bowel Movements 1 1 Laboratory Tests Test 03/30/19 04:35 White Blood Count 10.1 K/UL (4.8-10.8) Red Blood Count 3.09 M/UL (4.70-6.10) L Hemoglobin 8.7 G/DL (14.2-18.0) L Hematocrit 27.6 % (42.0-52.0) L Mean Corpuscular Volume 90 FL (80-99) Mean Corpuscular Hemoglobin 28.2 PG (27.0-31.0) Mean Corpuscular Hemoglobin Concent 31.5 G/DL (32.0-36.0) L Red Cell Distribution Width 16.1 % (11.6-14.8) H Platelet Count 100 K/UL (150-450) L Mean Platelet Volume 5.4 FL (6.5-10.1) L Neutrophils (%) (Auto) 80.1 % (45.0-75.0) H Lymphocytes (%) (Auto) 16.3 % (20.0-45.0) L Monocytes (%) (Auto) 2.9 % (1.0-10.0) Eosinophils (%) (Auto) 0.5 % (0.0-3.0) Basophils (%) (Auto) 0.2 % (0.0-2.0) Sodium Level 139 MMOL/L (136-145) Potassium Level 3.7 MMOL/L (3.5-5.1) Chloride Level 106 MMOL/L (98-107) Carbon Dioxide Level 23 MMOL/L (21-32) Anion Gap 10 mmol/L (5-15) Blood Urea Nitrogen 15 mg/dL (7-18) Creatinine 1.1 MG/DL (0.55-1.30) Estimat Glomerular Filtration Rate mL/min (>60) Glucose Level 109 MG/DL (74-106) H Calcium Level 8.0 MG/DL (8.5-10.1) L Total Bilirubin 0.5 MG/DL (0.2-1.0) Aspartate Amino Transf (AST/SGOT) 28 U/L (15-37) Alanine Aminotransferase (ALT/SGPT) 10 U/L (12-78) L Alkaline Phosphatase 96 U/L (46-116) Total Protein 6.4 G/DL (6.4-8.2) Albumin 1.0 G/DL (3.4-5.0) L Globulin 5.4 g/dL Albumin/Globulin Ratio 0.2 (1.0-2.7) L Lipase 60 U/L (73-393) L Microbiology Date/Time Source Procedure Growth Status 03/28/19 13:44 Sputum Gram Stain - Final Resulted 03/28/19 13:44 Sputum Culture - Preliminary Staphylococcus Aureus Resulted Objective HEAD AND NECK: Orally intubated with NG-tube. LUNGS: Coarse rhonchi. CARDIOVASCULAR:Regular S1 and S2 with no gallop or murmur. ABDOMEN: Soft. EXTREMITIES: No pitting edema. Christian Vargas MD Mar 30, 2019 16:49
--- NOTE | 2019-03-30 16:50 | NUR ---
NURSE NOTES: Dr. Vargas at bedside.
--- NOTE | 2019-03-30 16:53 | Pulmonolgy Critical Care Note ---
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 (11) Hypothyroidism Assessment/Plan: D/C IVF, may start Lasix in am if BP stable Continue ventilatory support/settings reviewed PRN HHN's Daily SBT Off NE, continue Midodrine Vanco/Zosyn (D4) per ID ICU sedation - off Fent Start Synthroid F/U cards recs Xarelto Monitor HH, F/U GI recs, F/U EGD path FC, continue to discuss GOC ---> d/w and daughter both reaffirmed desire for full treatment measures but reiterated that they would consider a more a palliative approach based on his trajectory the next few days Time Spent (Minutes): other Notes 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, 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, renal, ID, GI Critical Care - Objective Last 24 Hour Vital Signs Date Time Temp Pulse Resp B/P (MAP) Pulse Ox O2 Delivery O2 Flow Rate FiO2 03/30/19 15:30 79 16 123/45 (71) 10 03/30/19 15:23 59 16 40 03/30/19 15:00 69 16 137/54 (81) 100 03/30/19 15:00 137/54 03/30/19 14:30 68 16 98/56 (70) 100 03/30/19 14:00 65 16 88/46 (60) 100 03/30/19 13:30 60 16 100/66 (77) 100 03/30/19 13:00 63 16 128/74 (92) 100 03/30/19 12:53 81 25 40 03/30/19 12:30 63 17 97/34 (55) 100 03/30/19 12:00 Mechanical Ventilator 03/30/19 12:00 97.3 65 16 100/48 (65) 100 03/30/19 12:00 55 03/30/19 11:30 63 16 97/51 (66) 100 03/30/19 11:15 87/38 03/30/19 11:15 66 16 83/38 (53) 100 03/30/19 11:00 63 16 145/58 (87) 100 03/30/19 11:00 64 16 40 03/30/19 10:30 78 16 119/54 (75) 100 03/30/19 10:00 65 16 128/48 (74) 100 03/30/19 09:30 108 16 90/40 (57) 100 03/30/19 09:30 90/40 03/30/19 09:00 106 16 116/63 (80) 100 03/30/19 08:41 40 03/30/19 08:40 78 17 40 03/30/19 08:40 100 03/30/19 08:40 40 03/30/19 08:30 120 17 135/63 (87) 100 03/30/19 08:00 40 03/30/19 08:00 Mechanical Ventilator 03/30/19 08:00 96.8 109 16 122/107 (112) 100 03/30/19 08:00 52 03/30/19 07:30 65 15 122/47 (72) 100 03/30/19 07:00 80 17 145/58 (87) 100 03/30/19 07:00 80 17 145/58 (87) 100 03/30/19 07:00 145/58 03/30/19 06:58 79 16 40 03/30/19 06:45 72 16 84/43 (57) 100 03/30/19 06:30 67 17 101/52 (68) 100 03/30/19 06:30 83/43 03/30/19 06:00 105/47 03/30/19 06:00 58 16 114/43 (66) 100 03/30/19 05:30 65 16 110/43 (65) 100 03/30/19 05:15 66 16 40 03/30/19 05:00 117/42 03/30/19 05:00 62 16 117/42 (67) 100 03/30/19 04:30 67 16 116/55 (75) 100 03/30/19 04:00 40 03/30/19 04:00 Mechanical Ventilator 03/30/19 04:00 99/49 03/30/19 04:00 97.5 62 6 99/49 (66) 100 03/30/19 04:00 68 03/30/19 03:30 77 12 137/97 (110) 100 03/30/19 03:00 112/48 03/30/19 03:00 59 16 112/48 (69) 100 03/30/19 02:42 56 16 40 03/30/19 02:30 65 16 112/50 (70) 100 03/30/19 02:00 112/54 03/30/19 02:00 75 16 130/65 (86) 100 03/30/19 01:30 56 6 128/58 (81) 100 03/30/19 01:00 66 16 138/62 (87) 100 03/30/19 01:00 138/62 03/30/19 00:50 61 17 40 03/30/19 00:30 55 16 116/63 (80) 100 03/30/19 00:00 40 03/30/19 00:00 97.4 66 15 140/64 (89) 100 03/30/19 00:00 52 03/30/19 00:00 140/64 03/30/19 00:00 Mechanical Ventilator 03/29/19 23:30 52 15 122/63 (82) 100 03/29/19 23:25 53 16 40 03/29/19 23:00 67 16 131/61 (84) 100 03/29/19 23:00 131/61 03/29/19 22:30 55 13 113/56 (75) 100 03/29/19 22:00 53 16 101/60 (74) 100 03/29/19 22:00 101/60 03/29/19 21:30 67 16 121/55 (77) 100 03/29/19 21:00 73 16 109/49 (69) 100 03/29/19 21:00 109/49 03/29/19 20:53 56 16 40 03/29/19 20:30 74 16 136/68 (90) 100 03/29/19 20:00 97.5 54 16 117/46 (69) 100 03/29/19 20:00 117/46 03/29/19 20:00 40 03/29/19 20:00 Mechanical Ventilator 03/29/19 20:00 52 03/29/19 19:30 60 17 105/44 (64) 100 03/29/19 19:06 66 16 40 03/29/19 19:00 57 17 101/54 (70) 100 03/29/19 18:45 117 16 100/51 (67) 100 03/29/19 18:30 79 16 94/40 (58) 100 03/29/19 18:15 60 16 81/48 (59) 100 03/29/19 18:00 62 16 79/44 (56) 100 03/29/19 17:45 66 16 125/55 (78) 100 03/29/19 17:30 70 16 114/56 (75) 100 03/29/19 17:25 64 16 40 03/29/19 17:15 76 16 126/63 (84) 100 03/29/19 17:00 49 16 122/60 (80) 100 Status: awake, other - intubated Condition: critical HEENT: atraumatic, normocephalic Lungs: rales, rhonchi Heart: HR/BP unstable Abdomen: soft, non-tender, active bowel sounds Extremities: edema - 1+, cyanosis - no, clubbing - no Micro: Microbiology Date/Time Source Procedure Growth Status 03/28/19 13:44 Sputum Gram Stain - Final Resulted 03/28/19 13:44 Sputum Culture - Preliminary Staphylococcus Aureus Resulted Blood Sugars: BS controlled Critical Care - Subjective ROS Limited/Unobtainable: Yes ICU Day: 4 Intubation Day: 4 Interval Events: CT-A neg for PE + b effusions and anasarca + b infiltrates + psoas abcess MRSA in sputum and blood Failed SBT Awake S/p PICC Condition: critical IV Access: central - R fem TLC EKG Rhythm: Sinus Tachycardia FI02: 40 Vent Support Breath Rate: 16 Vent Support Mode: AC Vent Tidal Volume: 600 Sputum Amount: Small PEEP: 5.0 PIP: 18 Fluids: [id number] Drips: Off NE Tube Feeding Amount: 45 I&O: Intake and Output 03/29/19 03/30/19 19:00 07:00 Intake Total 1519.0 ml 2158.800 ml Output Total 675 ml 1010 ml Balance 844.0 ml 1148.800 ml Intake Free Water 120 ml IV Total 1294.0 ml 1748.800 ml Tube Feeding 105 ml 410 ml Output Urine Total 675 ml 1010 ml # Bowel Movements 1 1 Subjective: intubated [place] ET-Tube: 7.5 ET Position: 24 Labs: Laboratory Tests Test 03/30/19 04:35 White Blood Count 10.1 K/UL (4.8-10.8) Red Blood Count 3.09 M/UL (4.70-6.10) L Hemoglobin 8.7 G/DL (14.2-18.0) L Hematocrit 27.6 % (42.0-52.0) L Mean Corpuscular Volume 90 FL (80-99) Mean Corpuscular Hemoglobin 28.2 PG (27.0-31.0) Mean Corpuscular Hemoglobin Concent 31.5 G/DL (32.0-36.0) L Red Cell Distribution Width 16.1 % (11.6-14.8) H Platelet Count 100 K/UL (150-450) L Mean Platelet Volume 5.4 FL (6.5-10.1) L Neutrophils (%) (Auto) 80.1 % (45.0-75.0) H Lymphocytes (%) (Auto) 16.3 % (20.0-45.0) L Monocytes (%) (Auto) 2.9 % (1.0-10.0) Eosinophils (%) (Auto) 0.5 % (0.0-3.0) Basophils (%) (Auto) 0.2 % (0.0-2.0) Sodium Level 139 MMOL/L (136-145) Potassium Level 3.7 MMOL/L (3.5-5.1) Chloride Level 106 MMOL/L (98-107) Carbon Dioxide Level 23 MMOL/L (21-32) Anion Gap 10 mmol/L (5-15) Blood Urea Nitrogen 15 mg/dL (7-18) Creatinine 1.1 MG/DL (0.55-1.30) Estimat Glomerular Filtration Rate mL/min (>60) Glucose Level 109 MG/DL (74-106) H Calcium Level 8.0 MG/DL (8.5-10.1) L Total Bilirubin 0.5 MG/DL (0.2-1.0) Aspartate Amino Transf (AST/SGOT) 28 U/L (15-37) Alanine Aminotransferase (ALT/SGPT) 10 U/L (12-78) L Alkaline Phosphatase 96 U/L (46-116) Total Protein 6.4 G/DL (6.4-8.2) Albumin 1.0 G/DL (3.4-5.0) L Globulin 5.4 g/dL Albumin/Globulin Ratio 0.2 (1.0-2.7) L Lipase 60 U/L (73-393) L Joaquim Bello MD Mar 30, 2019 16:53
--- NOTE | 2019-03-30 17:00 | NUR ---
NURSE NOTES: Dr. Bello at bedside.
--- NOTE | 2019-03-30 18:21 | Surgery Progress Note ---
Surgery Progress Note Objective Last 24 Hour Vital Signs Date Time Temp Pulse Resp B/P (MAP) Pulse Ox O2 Delivery O2 Flow Rate FiO2 03/30/19 18:00 62 16 108/45 (66) 100 03/30/19 17:11 68 19 40 03/30/19 17:00 101 14 93/58 (70) 100 03/30/19 16:30 96 14 88/46 (60) 100 03/30/19 16:00 40 03/30/19 16:00 80 03/30/19 16:00 Mechanical Ventilator 03/30/19 16:00 97.6 80 16 125/48 (73) 100 03/30/19 15:30 79 16 123/45 (71) 10 03/30/19 15:23 59 16 40 03/30/19 15:00 69 16 137/54 (81) 100 03/30/19 15:00 137/54 03/30/19 14:30 68 16 98/56 (70) 100 03/30/19 14:00 65 16 88/46 (60) 100 03/30/19 13:30 60 16 100/66 (77) 100 03/30/19 13:00 63 16 128/74 (92) 100 03/30/19 12:53 81 25 40 03/30/19 12:30 63 17 97/34 (55) 100 03/30/19 12:00 Mechanical Ventilator 03/30/19 12:00 97.3 65 16 100/48 (65) 100 03/30/19 12:00 55 03/30/19 11:30 63 16 97/51 (66) 100 03/30/19 11:15 87/38 03/30/19 11:15 66 16 83/38 (53) 100 03/30/19 11:00 63 16 145/58 (87) 100 03/30/19 11:00 64 16 40 03/30/19 10:30 78 16 119/54 (75) 100 03/30/19 10:00 65 16 128/48 (74) 100 03/30/19 09:30 108 16 90/40 (57) 100 03/30/19 09:30 90/40 03/30/19 09:00 106 16 116/63 (80) 100 03/30/19 08:41 40 03/30/19 08:40 78 17 40 03/30/19 08:40 100 03/30/19 08:40 40 03/30/19 08:30 120 17 135/63 (87) 100 03/30/19 08:00 40 03/30/19 08:00 Mechanical Ventilator 03/30/19 08:00 96.8 109 16 122/107 (112) 100 03/30/19 08:00 52 03/30/19 07:30 65 15 122/47 (72) 100 03/30/19 07:00 80 17 145/58 (87) 100 03/30/19 07:00 80 17 145/58 (87) 100 03/30/19 07:00 145/58 03/30/19 06:58 79 16 40 03/30/19 06:45 72 16 84/43 (57) 100 03/30/19 06:30 67 17 101/52 (68) 100 03/30/19 06:30 83/43 03/30/19 06:00 105/47 03/30/19 06:00 58 16 114/43 (66) 100 03/30/19 05:30 65 16 110/43 (65) 100 03/30/19 05:15 66 16 40 03/30/19 05:00 117/42 03/30/19 05:00 62 16 117/42 (67) 100 03/30/19 04:30 67 16 116/55 (75) 100 03/30/19 04:00 40 03/30/19 04:00 Mechanical Ventilator 03/30/19 04:00 99/49 03/30/19 04:00 97.5 62 6 99/49 (66) 100 03/30/19 04:00 68 03/30/19 03:30 77 12 137/97 (110) 100 03/30/19 03:00 112/48 03/30/19 03:00 59 16 112/48 (69) 100 03/30/19 02:42 56 16 40 03/30/19 02:30 65 16 112/50 (70) 100 03/30/19 02:00 112/54 03/30/19 02:00 75 16 130/65 (86) 100 03/30/19 01:30 56 6 128/58 (81) 100 03/30/19 01:00 66 16 138/62 (87) 100 03/30/19 01:00 138/62 8/22/19 00:50 61 17 40 03/30/19 00:30 55 16 116/63 (80) 100 03/30/19 00:00 40 03/30/19 00:00 97.4 66 15 140/64 (89) 100 03/30/19 00:00 52 03/30/19 00:00 140/64 03/30/19 00:00 Mechanical Ventilator 03/29/19 23:30 52 15 122/63 (82) 100 03/29/19 23:25 53 16 40 03/29/19 23:00 67 16 131/61 (84) 100 03/29/19 23:00 131/61 03/29/19 22:30 55 13 113/56 (75) 100 03/29/19 22:00 53 16 101/60 (74) 100 03/29/19 22:00 101/60 03/29/19 21:30 67 16 121/55 (77) 100 03/29/19 21:00 73 16 109/49 (69) 100 03/29/19 21:00 109/49 03/29/19 20:53 56 16 40 03/29/19 20:30 74 16 136/68 (90) 100 03/29/19 20:00 97.5 54 16 117/46 (69) 100 03/29/19 20:00 117/46 03/29/19 20:00 40 03/29/19 20:00 Mechanical Ventilator 03/29/19 20:00 52 03/29/19 19:30 60 17 105/44 (64) 100 03/29/19 19:06 66 16 40 03/29/19 19:00 57 17 101/54 (70) 100 03/29/19 18:45 117 16 100/51 (67) 100 03/29/19 18:30 79 16 94/40 (58) 100 I&O Intake and Output 03/29/19 03/30/19 19:00 07:00 Intake Total 1519.0 ml 2158.800 ml Output Total 675 ml 1010 ml Balance 844.0 ml 1148.800 ml Intake Free Water 120 ml IV Total 1294.0 ml 1748.800 ml Tube Feeding 105 ml 410 ml Output Urine Total 675 ml 1010 ml # Bowel Movements 1 1 Laboratory Tests Test 03/30/19 04:35 White Blood Count 10.1 K/UL (4.8-10.8) Red Blood Count 3.09 M/UL (4.70-6.10) L Hemoglobin 8.7 G/DL (14.2-18.0) L Hematocrit 27.6 % (42.0-52.0) L Mean Corpuscular Volume 90 FL (80-99) Mean Corpuscular Hemoglobin 28.2 PG (27.0-31.0) Mean Corpuscular Hemoglobin Concent 31.5 G/DL (32.0-36.0) L Red Cell Distribution Width 16.1 % (11.6-14.8) H Platelet Count 100 K/UL (150-450) L Mean Platelet Volume 5.4 FL (6.5-10.1) L Neutrophils (%) (Auto) 80.1 % (45.0-75.0) H Lymphocytes (%) (Auto) 16.3 % (20.0-45.0) L Monocytes (%) (Auto) 2.9 % (1.0-10.0) Eosinophils (%) (Auto) 0.5 % (0.0-3.0) Basophils (%) (Auto) 0.2 % (0.0-2.0) Sodium Level 139 MMOL/L (136-145) Potassium Level 3.7 MMOL/L (3.5-5.1) Chloride Level 106 MMOL/L (98-107) Carbon Dioxide Level 23 MMOL/L (21-32) Anion Gap 10 mmol/L (5-15) Blood Urea Nitrogen 15 mg/dL (7-18) Creatinine 1.1 MG/DL (0.55-1.30) Estimat Glomerular Filtration Rate mL/min (>60) Glucose Level 109 MG/DL (74-106) H Calcium Level 8.0 MG/DL (8.5-10.1) L Total Bilirubin 0.5 MG/DL (0.2-1.0) Aspartate Amino Transf (AST/SGOT) 28 U/L (15-37) Alanine Aminotransferase (ALT/SGPT) 10 U/L (12-78) L Alkaline Phosphatase 96 U/L (46-116) Total Protein 6.4 G/DL (6.4-8.2) Albumin 1.0 G/DL (3.4-5.0) L Globulin 5.4 g/dL Albumin/Globulin Ratio 0.2 (1.0-2.7) L Lipase 60 U/L (73-393) L Plan Problems: (1) Respiratory distress (2) Decubitus skin ulcer Assessment & Plan: Pt presented on admission with multiple pressure injuries and ulcerations 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 Base of wound has mixed slough and necrosis. Edges adherent and dark . Periwound indurated with darker skin tone. Pt complained of pain when minimally palpated. Mild odor noted Full thickness ulcer R tibia. Base of wound has slough. Edges adherent and flat ,Periwound without erythema or fluctuance. Stable dry eschar noted to R hallux. edges are dark but adherent to base of wound. Periwound dark without erythema or fluctuance Stable dry eschar noted to R st metatarsal head. Periwound pale without fluctuance Stable dry eschar noted to dorsal aspects of R 3rd and 4th metatarsals. Full thickness ulcer lateral R 5th metatarsal. base of wound with some areas of necrosis and edges are black . No odor or exudate noted Stable dry eschar R heel . Periwound fluctuant without erythema. Pt complained of pain when minimally palpated. Stable dry eschar noted to dorso/flexor L foot. Periwound without erythema , induration or fluctuance Reabsorbing blood blister noted to medial L foot. Periwound without erythema or fluctuance L heel is dry and blanchable with historical scarring from previous wounds .Dry flaky skin noted to both feet. Tx.Plan: Cleanse sacral wound with Dakin's 0.125% stefani. Loose pack wound with Dakin's moist Kerlix. Apply Moisture Barrier paste to borders and cover with Optifoam drsg. Twice daily and prn. Cleanse Wound R tibia with Saline. Apply Therahoney. Cover with Optifoam drsg. Change every 3 days and prn.Apply Cavilon Skin BArrier to both heels. Cover each heel with Optifoam drsg. change every 7 days and prn APM/PHIL mattress overlay. Reposition at least every 2hours or as tolerated. Off-load heels with pillow. (3) Severe sepsis Assessment & Plan: leukocytosis resolved anemia lactic acidosis resolved improving septic MRSA bacteremia labs noted imaging noted Cont IV abx as per ID feeds wounds evaluated and care plan as above labs noted f/u cxr will follow with recs thank you DAILY ESTIMATED NEEDS: Needs based on Wound, critical care 78.6kg 25-30 kcals/kg [id number] total kcals 1.25-2 g protein/kg 98-157 g total protein Fluid per MD, on lasix NUTRITION DIAGNOSIS: 1) Increased kcal/ pro needs r/t wound healing as evidenced by full thickness sacral wound, pending updated eval. 2) Swallowing difficulty r/t respiratory status as evidenced by s/p RR, pt now orally intubated, on pressor support. CURRENT DIET: Regular-> pt now intubated ENTERAL NUTRITION RECOMMENDATIONS: Osmolite 1.5 @55ml/hr x24 hrs + Prosource BID to provide 1320ml, 1980 kcal, 83g + 22g pro, 1006ml free H2O - WHEN HEMODYNAMICALLY STABLE, rec to obtain GI access, initiate non oral feeds to meed est nutritional needs - Start Osmolite 1.5 @25ml/hr for 6 hrs, advance as tolerated 10ml/hr q4-6 hrs to goal. - Flush per MD/ HOB over 30 degrees ADDITIONAL RECOMMENDATIONS: 1) Obtain a CALIBRATED bed wt 2) Feed w/ hemodynamic stability -> currently on pressors x2 3) WOUND CARE: Add BRUCE BID w/ GI access Add VIT C 250mg BID Add ZnSO4 220mg daily x10 days 4) On lasix, monitor lytes daily 5) CHICKEN TENDER eval upon extubation (4) Dyspnea (5) Hypoxia Tawanda Alfaro Mar 30, 2019 18:21
[2019-03-30] MEDS ORDERED: Acetaminophen 650mg/20.3ml NG PRN (18:42)
--- NOTE | 2019-03-30 19:12 | NUR ---
HAND-OFF: Report given to Anabel Valencia RN.
--- NOTE | 2019-03-30 19:13 | NUR ---
NURSE NOTES: received bedside report from CELINE Jones.Patient stable,awake,alert,confused at time,SR on radiation monitor,no c/o pain,no respiratory distress noted,ET 24 cm AC mode 16 TV 600 FiO2 40% PEEP 5 tolerated well,R NGT running with Osmolite 1.5@ 55ml/hr,goal 60ml/hr no residual at this time,tolerated feeding well,PICC line on R femoral TLC inserted 03/26/19 patent,intact,bed secured in a low safety position,call light within a reach.Will continue to monitor and follow POC.
--- NOTE | 2019-03-30 20:39 | NUR ---
NURSE NOTES: Received a ora result 25.8,next scheduled dose changed by pharmacy,charge nurse aware
[2019-03-30] MEDS: Dyna-Hex 2% Top Sol 2oz TOPIC SCH (21:35)
--- NOTE | 2019-03-30 23:34 | NUR ---
NURSE NOTES: Patient clean and dry,dressings changed,turned and repositioned,V/S stable,ETT stay in place 65cm,skin intact,pt still on bilateral soft restrains.
[2019-03-31] VITALS (72 sets, daily range): BP systolic 67–162; BP diastolic 41–92
--- NOTE | 2019-03-31 00:10 | NUR ---
NURSE NOTES: Levophed started d/t pt's condition B/P 78/53 per protocol at 4 mcg.Will continue to monitor patient.
[2019-03-31] MEDS: Phenylephrine 50 MG in D5W 245 ML IV SCH (01:45)
[2019-03-31] MEDS: Vancomycin 500mg/D5W 110ml IVPB SCH ×4 (03:45→17:00)
--- NOTE | 2019-03-31 04:00 | NUR ---
NURSE NOTES: Patient clean and dry,dressing changed 2x on sacral d/t BM 2x
[2019-03-31 04:24] LABS: HEMATOCRIT 21.3 % (42.0-52.0); MEAN CORPUSCULAR VOLUME 88 FL (80-99); PLATELET COUNT 121 K/UL (150-450); RED CELL DISTRIBUTION WIDTH 15.5 % (11.6-14.8); WHITE BLOOD COUNT 9.3 K/UL (4.8-10.8)
[2019-03-31 04:58] LABS: ANION GAP 8 mmol/L (5-15); BLOOD UREA NITROGEN 16 mg/dL (7-18); CALCIUM 7.8 MG/DL (8.5-10.1); CARBON DIOXIDE 23 MMOL/L (21-32); CHLORIDE 109 MMOL/L (98-107); CREATININE 0.9 MG/DL (0.55-1.30); POTASSIUM 3.4 MMOL/L (3.5-5.1); SODIUM 140 MMOL/L (136-145)
[2019-03-31 05:02] LABS: HEMOGLOBIN 6.8 G/DL (14.2-18.0)
--- NOTE | 2019-03-31 05:11 | NUR ---
NURSE NOTES: Received lab result Hg 6.8 Charge nurse aware, will notified,next shift nurse will be endorse
--- NOTE | 2019-03-31 05:18 | NUR ---
NURSE NOTES: notified regarding pt's Hgb level 6.8.Charge nurse aware,waiting for new orders.
[2019-03-31] MEDS: Piperacillin/Tazobactam 3.375 GM in NS 110 ML IVPB SCH ×3 (05:57→22:05)
--- NOTE | 2019-03-31 06:16 | NUR ---
NURSE NOTES: Received an order from for 1 unit pRBC,charge nurse aware
--- NOTE | 2019-03-31 06:32 | NUR ---
RESPIRATORY NOTE: Received pt on vent setting: AC 16-600ml-40%FiO2- 5 peep. Pt is intubated with ETT size 7.5 @ 24cm lips line, secured by anchor fast. pt is awake, alert,able to follow commands, resting comfortably in the bed, no SOB or resp distress noted. Johnny diminished breath sounds, suctioned small amounts of thick red specks/ yellow godwin secretions without incidents. Alarms are set and audible, vent is plugged into the red outlet, ambu bag @bedside. will continue to monitor and sxn q2h and as needed.
--- NOTE | 2019-03-31 07:17 | NUR ---
HAND-OFF: Report given to CELINE Jones.Patient stable,blood ordered.
--- NOTE | 2019-03-31 07:18 | NUR ---
NURSE NOTES: Received patient in stable condition. ET tube inplace, vent dependent. With right nare NGT. Jose cath inplace. No respiratory distress at this time. Contact isolation observed. Will continue plan of care.
[2019-03-31] MEDS: Vancomycin 1gm/D5W 275ml IVPB SCH ×2 (07:30)
[2019-03-31] MEDS: Vancomycin 750mg/NS 275ml IVPB SCH ×2 (07:51)
--- NOTE | 2019-03-31 07:55 | NUR ---
NURSE NOTES: Dr. Bello at bedside. changed vent setting to CPAP mode. RT/Patti made aware.
--- NOTE | 2019-03-31 07:55 | NUR ---
RESPIRATORY NOTE: Dr. Bello placed pt on CPAP PS 8, peep 5, 40% FiO2. Per Dr. Bello, weaning as tolerated, no extubation today. Pt is tolerating really well. No SOB or resp distress noted. Will continue to monitor.
--- NOTE | 2019-03-31 08:02 | Pulmonolgy Critical Care Note ---
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 COLO FC, continue to discuss GOC ---> d/w and daughter both reaffirmed desire for full treatment measures but reiterated that they would consider a more a palliative approach based on his trajectory the next few days Critical Care - Objective Last 24 Hour Vital Signs Date Time Temp Pulse Resp B/P (MAP) Pulse Ox O2 Delivery O2 Flow Rate FiO2 03/31/19 07:00 98 18 120/68 (85) 100 03/31/19 06:00 68 16 116/69 (85) 100 03/31/19 05:03 110 16 40 03/31/19 05:00 75 16 106/62 (77) 100 03/31/19 05:00 106/62 03/31/19 04:45 102/57 03/31/19 04:00 98 16 102/57 (72) 100 03/31/19 04:00 Mechanical Ventilator 03/31/19 04:00 40 03/31/19 03:45 98/59 03/31/19 03:34 66 03/31/19 03:30 75 16 82/46 (58) 100 03/31/19 03:30 82/44 03/31/19 03:03 109 16 40 03/31/19 03:00 82 16 96/72 (80) 100 03/31/19 02:30 64 16 122/71 (88) 100 03/31/19 02:25 122/71 03/31/19 02:15 113 16 122/71 (88) 100 03/31/19 02:10 128/70 03/31/19 02:00 71 16 105/71 (82) 97 03/31/19 01:55 131/57 03/31/19 01:45 68 16 131/57 (81) 100 03/31/19 01:45 72 132/57 03/31/19 01:40 132/57 03/31/19 01:30 75 16 143/84 (103) 100 03/31/19 01:30 72 16 141/64 (89) 100 03/31/19 01:25 143/84 03/31/19 01:15 78 16 143/84 (103) 100 03/31/19 01:15 68 16 40 03/31/19 01:15 78 16 143/84 (103) 100 03/31/19 01:10 142/60 03/31/19 01:00 67 16 113/70 (84) 100 03/31/19 01:00 66 16 142/60 (87) 100 03/31/19 01:00 66 16 142/60 (87) 100 03/31/19 00:55 113/70 03/31/19 00:45 120 18 113/70 (84) 100 03/31/19 00:45 120 16 113/70 (84) 100 03/31/19 00:45 120 16 113/70 (84) 100 03/31/19 00:45 120 16 113/70 (84) 100 03/31/19 00:40 129/56 03/31/19 00:30 66 16 129/56 (80) 100 03/31/19 00:30 66 16 129/56 (80) 100 03/31/19 00:30 66 16 129/56 (80) 100 03/31/19 00:30 66 16 129/56 (80) 100 03/31/19 00:25 88/59 03/31/19 00:15 126 17 88/59 (69) 100 03/31/19 00:15 126 17 88/59 (69) 100 03/31/19 00:15 126 17 88/59 (69) 100 03/31/19 00:15 126 17 88/59 (69) 100 03/31/19 00:10 78/53 03/31/19 00:08 129 03/31/19 00:04 127 16 78/53 (61) 100 03/31/19 00:04 127 16 78/53 (61) 100 03/31/19 00:04 127 16 78/53 (61) 100 03/31/19 00:03 128 16 67/41 (50) 100 03/31/19 00:03 128 16 67/41 (50) 100 03/31/19 00:03 128 16 67/41 (50) 100 03/31/19 00:00 119 16 70/49 (56) 100 03/31/19 00:00 119 16 70/49 (56) 100 03/31/19 00:00 Mechanical Ventilator 03/31/19 00:00 89 15 78/52 (61) 100 03/31/19 00:00 119 16 70/49 (56) 100 03/31/19 00:00 119 16 70/49 (56) 100 03/30/19 23:16 64 18 40 03/30/19 23:00 98 18 121/62 (81) 100 03/30/19 22:00 98.1 75 15 119/52 (74) 100 03/30/19 21:28 55 16 40 03/30/19 21:00 82 18 119/52 (74) 100 03/30/19 20:00 65 16 94/48 (63) 100 03/30/19 20:00 Mechanical Ventilator 03/30/19 20:00 40 03/30/19 19:46 54 03/30/19 19:33 70 19 40 03/30/19 19:00 66 18 116/46 (69) 100 03/30/19 18:00 62 16 108/45 (66) 100 03/30/19 17:11 68 19 40 03/30/19 17:00 101 14 93/58 (70) 100 03/30/19 16:30 96 14 88/46 (60) 100 03/30/19 16:00 40 03/30/19 16:00 80 03/30/19 16:00 Mechanical Ventilator 03/30/19 16:00 97.6 80 16 125/48 (73) 100 03/30/19 15:30 79 16 123/45 (71) 10 03/30/19 15:23 59 16 40 03/30/19 15:00 69 16 137/54 (81) 100 03/30/19 15:00 137/54 03/30/19 14:30 68 16 98/56 (70) 100 03/30/19 14:00 65 16 88/46 (60) 100 03/30/19 13:30 60 16 100/66 (77) 100 03/30/19 13:00 63 16 128/74 (92) 100 03/30/19 12:53 81 25 40 03/30/19 12:30 63 17 97/34 (55) 100 03/30/19 12:00 Mechanical Ventilator 03/30/19 12:00 97.3 65 16 100/48 (65) 100 03/30/19 12:00 55 03/30/19 11:30 63 16 97/51 (66) 100 03/30/19 11:15 87/38 03/30/19 11:15 66 16 83/38 (53) 100 03/30/19 11:00 63 16 145/58 (87) 100 03/30/19 11:00 64 16 40 03/30/19 10:30 78 16 119/54 (75) 100 03/30/19 10:00 65 16 128/48 (74) 100 03/30/19 09:30 108 16 90/40 (57) 100 03/30/19 09:30 90/40 03/30/19 09:00 106 16 116/63 (80) 100 03/30/19 08:41 40 03/30/19 08:40 78 17 40 03/30/19 08:40 100 03/30/19 08:40 40 03/30/19 08:30 120 17 135/63 (87) 100 03/30/19 08:00 40 03/30/19 08:00 Mechanical Ventilator 03/30/19 08:00 96.8 109 16 122/107 (112) 100 03/30/19 08:00 52 Status: awake - on vent Condition: critical HEENT: atraumatic, normocephalic Lungs: rales Heart: HR/BP unstable Abdomen: soft, non-tender, active bowel sounds Extremities: no C/C/E Micro: Microbiology Date/Time Source Procedure Growth Status 03/28/19 13:44 Sputum Gram Stain - Final Resulted 03/28/19 13:44 Sputum Culture - Preliminary Staphylococcus Aureus - Mrsa Resulted Blood Sugars: BS controlled Critical Care - Subjective ROS Limited/Unobtainable: Yes ICU Day: 5 Intubation Day: 5 Interval Events: Back on 3 mcg NE Hb 6.8 awaiting PRBC IVF off No bleeding Awake Condition: critical IV Access: central - R fem CVC (03/26) EKG Rhythm: Sinus Rhythm FI02: 40 Vent Support Breath Rate: 16 Vent Support Mode: AC Vent Tidal Volume: 600 Sputum Amount: Small PEEP: 5.0 PIP: 29 Secretions: thick small Fluids: SLIV Drips: NE # 3 Tube Feeding Amount: 60 I&O: Intake and Output 03/30/19 03/31/19 19:00 07:00 Intake Total 1319.9325 ml 1200.00 ml Output Total 805 ml 415 ml Balance 514.9325 ml 785.00 ml Intake Free Water 200 ml 100 ml IV Total 519.9325 ml 520.00 ml Tube Feeding 470 ml 580 ml Other 130 ml Output Urine Total 805 ml 415 ml # Bowel Movements 4 Subjective: intubated C[place]TON ET-Tube: 7.5 ET Position: 24 Labs: Laboratory Tests Test 03/30/19 19:00 03/31/19 03:15 Vancomycin Level Trough 25.8 ug/mL (5.0-12.0) H White Blood Count 9.3 K/UL (4.8-10.8) Red Blood Count 2.40 M/UL (4.70-6.10) L Hemoglobin 6.8 G/DL (14.2-18.0) *L Hematocrit 21.3 % (42.0-52.0) L Mean Corpuscular Volume 88 FL (80-99) Mean Corpuscular Hemoglobin 28.5 PG (27.0-31.0) Mean Corpuscular Hemoglobin Concent 32.2 G/DL (32.0-36.0) Red Cell Distribution Width 15.5 % (11.6-14.8) H Platelet Count 121 K/UL (150-450) L Mean Platelet Volume 5.3 FL (6.5-10.1) L Neutrophils (%) (Auto) % (45.0-75.0) Lymphocytes (%) (Auto) % (20.0-45.0) Monocytes (%) (Auto) % (1.0-10.0) Eosinophils (%) (Auto) % (0.0-3.0) Basophils (%) (Auto) % (0.0-2.0) Neutrophils % (Manual) Pending Lymphocytes % (Manual) Pending Platelet Estimate Pending Platelet Morphology Pending Sodium Level 140 MMOL/L (136-145) Potassium Level 3.4 MMOL/L (3.5-5.1) L Chloride Level 109 MMOL/L (98-107) H Carbon Dioxide Level 23 MMOL/L (21-32) Anion Gap 8 mmol/L (5-15) Blood Urea Nitrogen 16 mg/dL (7-18) Creatinine 0.9 MG/DL (0.55-1.30) Estimat Glomerular Filtration Rate mL/min (>60) Glucose Level 74 MG/DL (74-106) Calcium Level 7.8 MG/DL (8.5-10.1) L Joaquim Bello MD Mar 31, 2019 08:02
[2019-03-31] MEDS: Zinc Sulfate 220mg cap NG SCH (09:17)
[2019-03-31] MEDS: Pantoprazole Inj IVP SCH (09:18)
[2019-03-31] MEDS: Ascorbic Acid 500mg tab ORAL SCH (09:18)
[2019-03-31] MEDS: Norepinephrine Bitartrate 8 MG in D5W 500ml 492 ML IV SCH (09:26)
--- NOTE | 2019-03-31 10:30 | NUR ---
RESPIRATORY NOTE: Placed pt back on AC mode with the same previous settings due to tachycardia HR 125bpm. No SOB or resp distress noted. RN made aware
--- NOTE | 2019-03-31 10:39 | Infectious Diseases Prog Note ---
"Assessment/Plan Assessment/Plan antibiotics : vancomycin iv, zosyn A 1. MRSA sepsis 2. 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 MRSA pneumonia 4. respiratory failure 5. leucocytosis improving 6. hypertension P 1. continue iv vancomycin 2. continue iv zosyn 1 more day 3. will follow up cultures Subjective ROS Limited/Unobtainable: Yes Allergies: Coded Allergies: No Known Allergies (Unverified , 01/18/19) Objective Vital Signs Last 24 Hour Vital Signs Date Time Temp Pulse Resp B/P (MAP) Pulse Ox O2 Delivery O2 Flow Rate FiO2 03/31/19 09:26 112/71 03/31/19 09:15 82 17 112/71 (85) 100 03/31/19 09:00 122 18 110/71 (84) 100 03/31/19 08:45 115 17 97/64 (75) 100 03/31/19 08:30 83 16 40 03/31/19 08:30 98.2 100 16 95/55 (68) 100 03/31/19 08:15 123 16 90/52 (65) 100 03/31/19 08:00 117 13 116/63 (80) 100 03/31/19 08:00 Mechanical Ventilator 03/31/19 07:55 76 17 40 03/31/19 07:55 40 03/31/19 07:55 100 03/31/19 07:45 82 17 114/50 (71) 100 03/31/19 07:30 103 16 114/57 (76) 100 03/31/19 07:15 71 16 120/62 (81) 100 03/31/19 07:00 98 18 120/68 (85) 100 03/31/19 06:32 111 16 40 03/31/19 06:00 68 16 116/69 (85) 100 03/31/19 05:03 110 16 40 03/31/19 05:00 75 16 106/62 (77) 100 03/31/19 05:00 106/62 03/31/19 04:45 102/57 03/31/19 04:00 98 16 102/57 (72) 100 03/31/19 04:00 Mechanical Ventilator 03/31/19 04:00 40 03/31/19 03:45 98/59 03/31/19 03:34 66 03/31/19 03:30 75 16 82/46 (58) 100 03/31/19 03:30 82/44 03/31/19 03:03 109 16 40 03/31/19 03:00 82 16 96/72 (80) 100 03/31/19 02:30 64 16 122/71 (88) 100 03/31/19 02:25 122/71 03/31/19 02:15 113 16 122/71 (88) 100 03/31/19 02:10 128/70 03/31/19 02:00 71 16 105/71 (82) 97 03/31/19 01:55 131/57 03/31/19 01:45 68 16 131/57 (81) 100 03/31/19 01:45 72 132/57 03/31/19 01:40 132/57 03/31/19 01:30 75 16 143/84 (103) 100 03/31/19 01:30 72 16 141/64 (89) 100 03/31/19 01:25 143/84 03/31/19 01:15 78 16 143/84 (103) 100 03/31/19 01:15 68 16 40 03/31/19 01:15 78 16 143/84 (103) 100 03/31/19 01:10 142/60 03/31/19 01:00 67 16 113/70 (84) 100 03/31/19 01:00 66 16 142/60 (87) 100 03/31/19 01:00 66 16 142/60 (87) 100 03/31/19 00:55 113/70 03/31/19 00:45 120 18 113/70 (84) 100 03/31/19 00:45 120 16 113/70 (84) 100 03/31/19 00:45 120 16 113/70 (84) 100 03/31/19 00:45 120 16 113/70 (84) 100 03/31/19 00:40 129/56 03/31/19 00:30 66 16 129/56 (80) 100 03/31/19 00:30 66 16 129/56 (80) 100 03/31/19 00:30 66 16 129/56 (80) 100 03/31/19 00:30 66 16 129/56 (80) 100 03/31/19 00:25 88/59 03/31/19 00:15 126 17 88/59 (69) 100 03/31/19 00:15 126 17 88/59 (69) 100 03/31/19 00:15 126 17 88/59 (69) 100 03/31/19 00:15 126 17 88/59 (69) 100 03/31/19 00:10 78/53 03/31/19 00:08 129 03/31/19 00:04 127 16 78/53 (61) 100 03/31/19 00:04 127 16 78/53 (61) 100 03/31/19 00:04 127 16 78/53 (61) 100 03/31/19 00:03 128 16 67/41 (50) 100 03/31/19 00:03 128 16 67/41 (50) 100 03/31/19 00:03 128 16 67/41 (50) 100 03/31/19 00:00 119 16 70/49 (56) 100 03/31/19 00:00 119 16 70/49 (56) 100 03/31/19 00:00 Mechanical Ventilator 03/31/19 00:00 89 15 78/52 (61) 100 03/31/19 00:00 119 16 70/49 (56) 100 03/31/19 00:00 119 16 70/49 (56) 100 03/30/19 23:16 64 18 40 03/30/19 23:00 98 18 121/62 (81) 100 03/30/19 22:00 98.1 75 15 119/52 (74) 100 03/30/19 21:28 55 16 40 03/30/19 21:00 82 18 119/52 (74) 100 03/30/19 20:00 65 16 94/48 (63) 100 03/30/19 20:00 Mechanical Ventilator 03/30/19 20:00 40 03/30/19 19:46 54 03/30/19 19:33 70 19 40 03/30/19 19:00 66 18 116/46 (69) 100 03/30/19 18:00 62 16 108/45 (66) 100 03/30/19 17:11 68 19 40 03/30/19 17:00 101 14 93/58 (70) 100 03/30/19 16:30 96 14 88/46 (60) 100 03/30/19 16:00 40 03/30/19 16:00 80 03/30/19 16:00 Mechanical Ventilator 03/30/19 16:00 97.6 80 16 125/48 (73) 100 03/30/19 15:30 79 16 123/45 (71) 10 03/30/19 15:23 59 16 40 03/30/19 15:00 69 16 137/54 (81) 100 03/30/19 15:00 137/54 03/30/19 14:30 68 16 98/56 (70) 100 03/30/19 14:00 65 16 88/46 (60) 100 03/30/19 13:30 60 16 100/66 (77) 100 03/30/19 13:00 63 16 128/74 (92) 100 03/30/19 12:53 81 25 40 03/30/19 12:30 63 17 97/34 (55) 100 03/30/19 12:00 Mechanical Ventilator 03/30/19 12:00 97.3 65 16 100/48 (65) 100 03/30/19 12:00 55 03/30/19 11:30 63 16 97/51 (66) 100 03/30/19 11:15 87/38 03/30/19 11:15 66 16 83/38 (53) 100 03/30/19 11:00 63 16 145/58 (87) 100 03/30/19 11:00 64 16 40 Height (Feet): 6 Height (Inches): 6.00 Weight (Pounds): 174 HEENT: other - intubated Respiratory/Chest: lungs clear Cardiovascular: normal rate, regular rhythm, no gallop/murmur Abdomen: soft, non tender Extremities: other - + edema, right groin catheter Microbiology Date/Time Source Procedure Growth Status 03/28/19 13:44 Sputum Gram Stain - Final Resulted 03/28/19 13:44 Sputum Culture - Preliminary Staphylococcus Aureus - Mrsa Resulted Laboratory Tests Test 03/30/19 19:00 03/31/19 03:15 Vancomycin Level Trough 25.8 ug/mL (5.0-12.0) H White Blood Count 9.3 K/UL (4.8-10.8) Red Blood Count 2.40 M/UL (4.70-6.10) L Hemoglobin 6.8 G/DL (14.2-18.0) *L Hematocrit 21.3 % (42.0-52.0) L Mean Corpuscular Volume 88 FL (80-99) Mean Corpuscular Hemoglobin 28.5 PG (27.0-31.0) Mean Corpuscular Hemoglobin Concent 32.2 G/DL (32.0-36.0) Red Cell Distribution Width 15.5 % (11.6-14.8) H Platelet Count 121 K/UL (150-450) L Mean Platelet Volume 5.3 FL (6.5-10.1) L Neutrophils (%) (Auto) % (45.0-75.0) Lymphocytes (%) (Auto) % (20.0-45.0) Monocytes (%) (Auto) % (1.0-10.0) Eosinophils (%) (Auto) % (0.0-3.0) Basophils (%) (Auto) % (0.0-2.0) Differential Total Cells Counted 100 Neutrophils % (Manual) 75 % (45-75) Lymphocytes % (Manual) 19 % (20-45) L Monocytes % (Manual) 6 % (1-10) Eosinophils % (Manual) 0 % (0-3) Basophils % (Manual) 0 % (0-2) Band Neutrophils 0 % (0-8) Platelet Estimate Decreased L Platelet Morphology Normal Hypochromasia 1+ Anisocytosis 1+ Sodium Level 140 MMOL/L (136-145) Potassium Level 3.4 MMOL/L (3.5-5.1) L Chloride Level 109 MMOL/L (98-107) H Carbon Dioxide Level 23 MMOL/L (21-32) Anion Gap 8 mmol/L (5-15) Blood Urea Nitrogen 16 mg/dL (7-18) Creatinine 0.9 MG/DL (0.55-1.30) Estimat Glomerular Filtration Rate mL/min (>60) Glucose Level 74 MG/DL (74-106) Calcium Level 7.8 MG/DL (8.5-10.1) L Current Medications Medications (Trade) Dose Ordered Sig/Vaughn Route PRN Reason Start Time Stop Time Status Last Admin Dose Admin Acetaminophen (Tylenol) 650 mg Q4H PRN NG Mild Pain/Temp > 100.5 03/30/19 18:42 04/29/19 18:41 Albuterol/ Ipratropium (Albuterol/ Ipratropium) 3 ml Q4H PRN HHN Shortness of Breath 03/26/19 17:30 03/31/19 17:29 Ascorbic Acid (Vitamin C) 250 mg TWICE A DAY NG 03/31/19 18:00 04/26/19 17:59 Barium Sulfate (Readi-Cat 2) 450 ml NOW PRN ORAL Radiology Procedure 03/29/19 14:15 03/31/19 14:03 Chlorhexidine Gluconate (Michelle-Hex 2%) 1 applic DAILY@2000 TOPIC 03/27/19 20:00 04/26/19 19:59 03/30/19 21:35 Diatrizoate Meglum/ Diatrizoate Sod (Gastrografin) 30 ml NOW PRN ORAL Radiology Procedure 03/29/19 14:15 03/31/19 14:14 Fentanyl Citrate 1000 mcg/Sodium Chloride 100 ml @ 0 mls/hr Q24H IV 03/28/19 14:45 04/04/19 14:44 03/28/19 20:47 Iopamidol (Isovue-300 100ml) 100 ml NOW PRN INJ Radiology Procedure 03/29/19 14:15 03/31/19 14:14 Iopamidol (Isovue-370 150ml) 150 ml NOW PRN INJ Radiology Procedure 03/29/19 14:15 03/31/19 14:03 Levothyroxine Sodium (Synthroid) 100 mcg DAILY@0630 NG 03/31/19 06:30 04/30/19 06:29 03/31/19 05:57 Midazolam HCl (Versed 2mg/2ml vial) 1 mg Q2H PRN IVP For Anxiety 03/28/19 14:45 04/27/19 14:44 Midodrine (Pro-Amatine) 5 mg THREE TIMES A DAY NG 03/31/19 09:00 04/27/19 17:59 03/31/19 09:17 Norepinephrine Bitartrate 8 mg/ Dextrose 500 ml @ 0 mls/hr Q24H IV 03/27/19 07:00 04/26/19 06:59 03/31/19 09:26 Pantoprazole (Protonix) 40 mg DAILY IVP 03/27/19 09:00 04/26/19 08:59 03/31/19 09:18 Phenylephrine HCl 50 mg/Dextrose 250 ml @ 0 mls/hr Q24H IV 03/27/19 01:45 04/26/19 01:44 03/27/19 13:43 Piperacillin Sod/ Tazobactam Sod 3.375 gm/Sodium Chloride 110 ml @ 27.5 mls/hr EVERY 8 HOURS IVPB 03/26/19 22:00 04/04/19 21:59 03/31/19 05:57 Rivaroxaban (Xarelto) 20 mg QPM NG 03/31/19 16:30 04/29/19 16:29 Sodium Hypochlorite (Dakin's Quarter Strength) 1 applic BEDTIME TOPIC 03/30/19 21:00 04/27/19 00:00 03/30/19 22:24 Vancomycin HCl (Vanco rx to dose) 1 ea DAILY PRN MISC Per rx protocol 03/27/19 16:00 04/26/19 15:59 Vancomycin HCl 500 mg/Dextrose 110 ml @ 110 mls/hr Q12HR@0400,1600 IVPB 03/31/19 04:00 04/05/19 03:59 03/31/19 03:45 Zinc Sulfate (Zinc Sulfate) 220 mg DAILY NG 03/31/19 09:00 04/27/19 08:59 03/31/19 09:17 Ambrocio Lemon MD Mar 31, 2019 10:39"
--- NOTE | 2019-03-31 12:20 | NUR ---
NURSE NOTES: Dr. Roche at bedside.
--- NOTE | 2019-03-31 12:22 | General Progress Note ---
Assessment/Plan Problem List: (1) GI bleed ICD Codes: K92.2 - Gastrointestinal hemorrhage, unspecified SNOMED: 20422061 (2) Anemia ICD Codes: D64.9 - Anemia, unspecified SNOMED: 284511020 (3) Lung mass ICD Codes: R91.8 - Other nonspecific abnormal finding of lung field SNOMED: 559681402 (4) Decubitus skin ulcer ICD Codes: L89.90 - Pressure ulcer of unspecified site, unspecified stage SNOMED: 382032059 (5) Hypothyroidism ICD Codes: E03.9 - Hypothyroidism, unspecified SNOMED: 93180578 Status: unchanged Assessment/Plan: SUMMARY OF FINDINGS: Gastritis, otherwise normal upper endoscopic examination. RECOMMENDATIONS: Follow biopsy results and treat accordingly. TF electrolyte correction prn transfusions ppi Subjective ROS Limited/Unobtainable: No Allergies: Coded Allergies: No Known Allergies (Unverified , 01/18/19) Objective Last 24 Hour Vital Signs Date Time Temp Pulse Resp B/P (MAP) Pulse Ox O2 Delivery O2 Flow Rate FiO2 03/31/19 10:30 122 16 93/55 (68) 100 03/31/19 10:30 40 03/31/19 10:30 125 16 40 03/31/19 10:29 40 03/31/19 10:15 107 17 132/88 (103) 100 03/31/19 10:00 111 18 82/51 (61) 100 03/31/19 09:45 132 21 155/83 (107) 100 03/31/19 09:30 122 16 104/69 (81) 100 03/31/19 09:26 112/71 03/31/19 09:15 82 17 112/71 (85) 100 03/31/19 09:00 122 18 110/71 (84) 100 03/31/19 08:45 115 17 97/64 (75) 100 03/31/19 08:30 83 16 40 03/31/19 08:30 98.2 100 16 95/55 (68) 100 03/31/19 08:15 123 16 90/52 (65) 100 03/31/19 08:00 117 13 116/63 (80) 100 03/31/19 08:00 Mechanical Ventilator 03/31/19 07:55 76 17 40 03/31/19 07:55 40 03/31/19 07:55 100 03/31/19 07:45 82 17 114/50 (71) 100 03/31/19 07:37 60 03/31/19 07:30 103 16 114/57 (76) 100 03/31/19 07:15 71 16 120/62 (81) 100 03/31/19 07:00 98 18 120/68 (85) 100 03/31/19 06:32 111 16 40 03/31/19 06:00 68 16 116/69 (85) 100 03/31/19 05:03 110 16 40 03/31/19 05:00 75 16 106/62 (77) 100 03/31/19 05:00 106/62 03/31/19 04:45 102/57 03/31/19 04:00 98 16 102/57 (72) 100 03/31/19 04:00 Mechanical Ventilator 03/31/19 04:00 40 03/31/19 03:45 98/59 03/31/19 03:34 66 03/31/19 03:30 75 16 82/46 (58) 100 03/31/19 03:30 82/44 03/31/19 03:03 109 16 40 03/31/19 03:00 82 16 96/72 (80) 100 03/31/19 02:30 64 16 122/71 (88) 100 03/31/19 02:25 122/71 03/31/19 02:15 113 16 122/71 (88) 100 03/31/19 02:10 128/70 03/31/19 02:00 71 16 105/71 (82) 97 03/31/19 01:55 131/57 03/31/19 01:45 68 16 131/57 (81) 100 03/31/19 01:45 72 132/57 03/31/19 01:40 132/57 03/31/19 01:30 75 16 143/84 (103) 100 03/31/19 01:30 72 16 141/64 (89) 100 03/31/19 01:25 143/84 03/31/19 01:15 78 16 143/84 (103) 100 03/31/19 01:15 68 16 40 03/31/19 01:15 78 16 143/84 (103) 100 03/31/19 01:10 142/60 03/31/19 01:00 67 16 113/70 (84) 100 03/31/19 01:00 66 16 142/60 (87) 100 03/31/19 01:00 66 16 142/60 (87) 100 03/31/19 00:55 113/70 03/31/19 00:45 120 18 113/70 (84) 100 03/31/19 00:45 120 16 113/70 (84) 100 03/31/19 00:45 120 16 113/70 (84) 100 03/31/19 00:45 120 16 113/70 (84) 100 03/31/19 00:40 129/56 03/31/19 00:30 66 16 129/56 (80) 100 03/31/19 00:30 66 16 129/56 (80) 100 03/31/19 00:30 66 16 129/56 (80) 100 03/31/19 00:30 66 16 129/56 (80) 100 03/31/19 00:25 88/59 03/31/19 00:15 126 17 88/59 (69) 100 03/31/19 00:15 126 17 88/59 (69) 100 03/31/19 00:15 126 17 88/59 (69) 100 03/31/19 00:15 126 17 88/59 (69) 100 03/31/19 00:10 78/53 03/31/19 00:08 129 03/31/19 00:04 127 16 78/53 (61) 100 03/31/19 00:04 127 16 78/53 (61) 100 03/31/19 00:04 127 16 78/53 (61) 100 03/31/19 00:03 128 16 67/41 (50) 100 03/31/19 00:03 128 16 67/41 (50) 100 03/31/19 00:03 128 16 67/41 (50) 100 03/31/19 00:00 119 16 70/49 (56) 100 03/31/19 00:00 119 16 70/49 (56) 100 03/31/19 00:00 Mechanical Ventilator 03/31/19 00:00 89 15 78/52 (61) 100 03/31/19 00:00 119 16 70/49 (56) 100 03/31/19 00:00 119 16 70/49 (56) 100 03/30/19 23:16 64 18 40 03/30/19 23:00 98 18 121/62 (81) 100 03/30/19 22:00 98.1 75 15 119/52 (74) 100 03/30/19 21:28 55 16 40 03/30/19 21:00 82 18 119/52 (74) 100 03/30/19 20:00 65 16 94/48 (63) 100 03/30/19 20:00 Mechanical Ventilator 03/30/19 20:00 40 03/30/19 19:46 54 03/30/19 19:33 70 19 40 03/30/19 19:00 66 18 116/46 (69) 100 03/30/19 18:00 62 16 108/45 (66) 100 03/30/19 17:11 68 19 40 03/30/19 17:00 101 14 93/58 (70) 100 03/30/19 16:30 96 14 88/46 (60) 100 03/30/19 16:00 40 03/30/19 16:00 80 03/30/19 16:00 Mechanical Ventilator 03/30/19 16:00 97.6 80 16 125/48 (73) 100 03/30/19 15:30 79 16 123/45 (71) 10 03/30/19 15:23 59 16 40 03/30/19 15:00 69 16 137/54 (81) 100 03/30/19 15:00 137/54 03/30/19 14:30 68 16 98/56 (70) 100 03/30/19 14:00 65 16 88/46 (60) 100 03/30/19 13:30 60 16 100/66 (77) 100 03/30/19 13:00 63 16 128/74 (92) 100 03/30/19 12:53 81 25 40 03/30/19 12:30 63 17 97/34 (55) 100 Intake and Output 03/30/19 03/31/19 18:59 06:59 Intake Total 1376.2325 ml 1282.50 ml Output Total 855 ml 385 ml Balance 521.2325 ml 897.50 ml Intake Free Water 200 ml 100 ml IV Total 631.2325 ml 547.50 ml Tube Feeding 415 ml 635 ml Other 130 ml Output Urine Total 855 ml 385 ml # Bowel Movements 4 Laboratory Tests 8/22/19 19:00: Vancomycin Level Trough 25.8H 03/31/19 03:15: White Blood Count 9.3, Red Blood Count 2.40L, Hemoglobin 6.8*L, Hematocrit 21.3L , Mean Corpuscular Volume 88, Mean Corpuscular Hemoglobin 28.5, Mean Corpuscular Hemoglobin Concent 32.2, Red Cell Distribution Width 15.5H, Platelet Count 121L, Mean Platelet Volume 5.3L, Neutrophils (%) (Auto) , Lymphocytes (%) (Auto) , Monocytes (%) (Auto) , Eosinophils (%) (Auto) , Basophils (%) (Auto) , Differential Total Cells Counted 100, Neutrophils % ( Manual) 75, Lymphocytes % (Manual) 19L, Monocytes % (Manual) 6, Eosinophils % ( Manual) 0, Basophils % (Manual) 0, Band Neutrophils 0, Platelet Estimate DecreasedL, Platelet Morphology Normal, Hypochromasia 1+, Anisocytosis 1+, Sodium Level 140, Potassium Level 3.4L, Chloride Level 109H, Carbon Dioxide Level 23, Anion Gap 8, Blood Urea Nitrogen 16, Creatinine 0.9, Estimat Glomerular Filtration Rate , Glucose Level 74, Calcium Level 7.8L Height (Feet): 6 Height (Inches): 6.00 Weight (Pounds): 174 General Appearance: no apparent distress EENT: normal ENT inspection Neck: supple Cardiovascular: normal rate Respiratory/Chest: decreased breath sounds Abdomen: normal bowel sounds, non tender, soft Extremities: non-tender Sergei Roche MD Mar 31, 2019 12:22
--- NOTE | 2019-03-31 13:39 | Cardiac Electrophysiology PN ---
Assessment/Plan Assessment/Plan 1. Septic shock. Blood Cx positive for GP cocci. On Levophed and Midodrine as well as IV antibiotics. EF 60 to 65 percent with mild diastolic dysfunction. 2. Bradycardia. DC Midodrine when off pressors 2. Respiratory failure, likely due to pneumonia. The patient is on broad- spectrum IV antibiotics. 3. Mild diastolic dysfunction with elevated BNP. 4. 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 UTI. DW RN Subjective Subjective Intubated on the vent and back on Levophed 3 mcg and getting transfusion. EGD showed gastritis Objective Last 24 Hour Vital Signs Date Time Temp Pulse Resp B/P (MAP) Pulse Ox O2 Delivery O2 Flow Rate FiO2 03/31/19 13:27 79 16 40 03/31/19 13:15 84 16 109/70 (83) 100 03/31/19 13:00 66 16 127/54 (78) 100 03/31/19 12:45 60 16 117/51 (73) 100 03/31/19 12:30 89 16 107/48 (67) 100 03/31/19 12:15 60 16 104/49 (67) 100 03/31/19 12:00 Mechanical Ventilator 03/31/19 12:00 62 16 117/53 (74) 100 03/31/19 11:45 100 17 100/50 (67) 100 03/31/19 11:30 85 16 125/60 (81) 100 03/31/19 11:15 102 16 91/61 (71) 100 03/31/19 11:00 124 17 93/57 (69) 100 03/31/19 10:58 106 17 95/63 (74) 100 03/31/19 10:45 94 15 101/65 (77) 100 03/31/19 10:30 122 16 93/55 (68) 100 03/31/19 10:30 40 03/31/19 10:30 125 16 40 03/31/19 10:29 40 03/31/19 10:15 107 17 132/88 (103) 100 03/31/19 10:00 111 18 82/51 (61) 100 03/31/19 09:45 132 21 155/83 (107) 100 03/31/19 09:30 122 16 104/69 (81) 100 03/31/19 09:26 112/71 03/31/19 09:15 82 17 112/71 (85) 100 03/31/19 09:00 122 18 110/71 (84) 100 03/31/19 08:45 115 17 97/64 (75) 100 03/31/19 08:30 83 16 40 03/31/19 08:30 98.2 100 16 95/55 (68) 100 03/31/19 08:15 123 16 90/52 (65) 100 03/31/19 08:00 117 13 116/63 (80) 100 03/31/19 08:00 Mechanical Ventilator 03/31/19 07:55 76 17 40 03/31/19 07:55 40 03/31/19 07:55 100 03/31/19 07:45 82 17 114/50 (71) 100 03/31/19 07:37 60 03/31/19 07:30 103 16 114/57 (76) 100 03/31/19 07:15 71 16 120/62 (81) 100 03/31/19 07:00 98 18 120/68 (85) 100 03/31/19 06:32 111 16 40 03/31/19 06:00 68 16 116/69 (85) 100 03/31/19 05:03 110 16 40 03/31/19 05:00 75 16 106/62 (77) 100 03/31/19 05:00 106/62 03/31/19 04:45 102/57 03/31/19 04:00 98 16 102/57 (72) 100 03/31/19 04:00 Mechanical Ventilator 03/31/19 04:00 40 03/31/19 03:45 98/59 03/31/19 03:34 66 03/31/19 03:30 75 16 82/46 (58) 100 03/31/19 03:30 82/44 03/31/19 03:03 109 16 40 03/31/19 03:00 82 16 96/72 (80) 100 03/31/19 02:30 64 16 122/71 (88) 100 03/31/19 02:25 122/71 03/31/19 02:15 113 16 122/71 (88) 100 03/31/19 02:10 128/70 03/31/19 02:00 71 16 105/71 (82) 97 03/31/19 01:55 131/57 8/23/19 01:45 68 16 131/57 (81) 100 03/31/19 01:45 72 132/57 03/31/19 01:40 132/57 03/31/19 01:30 75 16 143/84 (103) 100 03/31/19 01:30 72 16 141/64 (89) 100 03/31/19 01:25 143/84 03/31/19 01:15 78 16 143/84 (103) 100 03/31/19 01:15 68 16 40 03/31/19 01:15 78 16 143/84 (103) 100 03/31/19 01:10 142/60 03/31/19 01:00 67 16 113/70 (84) 100 03/31/19 01:00 66 16 142/60 (87) 100 03/31/19 01:00 66 16 142/60 (87) 100 03/31/19 00:55 113/70 03/31/19 00:45 120 18 113/70 (84) 100 03/31/19 00:45 120 16 113/70 (84) 100 03/31/19 00:45 120 16 113/70 (84) 100 03/31/19 00:45 120 16 113/70 (84) 100 03/31/19 00:40 129/56 03/31/19 00:30 66 16 129/56 (80) 100 03/31/19 00:30 66 16 129/56 (80) 100 03/31/19 00:30 66 16 129/56 (80) 100 03/31/19 00:30 66 16 129/56 (80) 100 03/31/19 00:25 88/59 03/31/19 00:15 126 17 88/59 (69) 100 03/31/19 00:15 126 17 88/59 (69) 100 03/31/19 00:15 126 17 88/59 (69) 100 03/31/19 00:15 126 17 88/59 (69) 100 03/31/19 00:10 78/53 03/31/19 00:08 129 03/31/19 00:04 127 16 78/53 (61) 100 03/31/19 00:04 127 16 78/53 (61) 100 03/31/19 00:04 127 16 78/53 (61) 100 03/31/19 00:03 128 16 67/41 (50) 100 03/31/19 00:03 128 16 67/41 (50) 100 03/31/19 00:03 128 16 67/41 (50) 100 03/31/19 00:00 119 16 70/49 (56) 100 03/31/19 00:00 119 16 70/49 (56) 100 03/31/19 00:00 Mechanical Ventilator 03/31/19 00:00 89 15 78/52 (61) 100 03/31/19 00:00 119 16 70/49 (56) 100 03/31/19 00:00 119 16 70/49 (56) 100 03/30/19 23:16 64 18 40 03/30/19 23:00 98 18 121/62 (81) 100 03/30/19 22:00 98.1 75 15 119/52 (74) 100 03/30/19 21:28 55 16 40 03/30/19 21:00 82 18 119/52 (74) 100 03/30/19 20:00 65 16 94/48 (63) 100 03/30/19 20:00 Mechanical Ventilator 03/30/19 20:00 40 03/30/19 19:46 54 03/30/19 19:33 70 19 40 03/30/19 19:00 66 18 116/46 (69) 100 03/30/19 18:00 62 16 108/45 (66) 100 03/30/19 17:11 68 19 40 03/30/19 17:00 101 14 93/58 (70) 100 03/30/19 16:30 96 14 88/46 (60) 100 03/30/19 16:00 40 03/30/19 16:00 80 03/30/19 16:00 Mechanical Ventilator 03/30/19 16:00 97.6 80 16 125/48 (73) 100 03/30/19 15:30 79 16 123/45 (71) 10 03/30/19 15:23 59 16 40 03/30/19 15:00 69 16 137/54 (81) 100 03/30/19 15:00 137/54 03/30/19 14:30 68 16 98/56 (70) 100 03/30/19 14:00 65 16 88/46 (60) 100 Intake and Output 03/30/19 03/31/19 18:59 06:59 Intake Total 1376.2325 ml 1282.50 ml Output Total 855 ml 385 ml Balance 521.2325 ml 897.50 ml Intake Free Water 200 ml 100 ml IV Total 631.2325 ml 547.50 ml Tube Feeding 415 ml 635 ml Other 130 ml Output Urine Total 855 ml 385 ml # Bowel Movements 4 Laboratory Tests Test 03/30/19 19:00 03/31/19 03:15 Vancomycin Level Trough 25.8 ug/mL (5.0-12.0) H White Blood Count 9.3 K/UL (4.8-10.8) Red Blood Count 2.40 M/UL (4.70-6.10) L Hemoglobin 6.8 G/DL (14.2-18.0) *L Hematocrit 21.3 % (42.0-52.0) L Mean Corpuscular Volume 88 FL (80-99) Mean Corpuscular Hemoglobin 28.5 PG (27.0-31.0) Mean Corpuscular Hemoglobin Concent 32.2 G/DL (32.0-36.0) Red Cell Distribution Width 15.5 % (11.6-14.8) H Platelet Count 121 K/UL (150-450) L Mean Platelet Volume 5.3 FL (6.5-10.1) L Neutrophils (%) (Auto) % (45.0-75.0) Lymphocytes (%) (Auto) % (20.0-45.0) Monocytes (%) (Auto) % (1.0-10.0) Eosinophils (%) (Auto) % (0.0-3.0) Basophils (%) (Auto) % (0.0-2.0) Differential Total Cells Counted 100 Neutrophils % (Manual) 75 % (45-75) Lymphocytes % (Manual) 19 % (20-45) L Monocytes % (Manual) 6 % (1-10) Eosinophils % (Manual) 0 % (0-3) Basophils % (Manual) 0 % (0-2) Band Neutrophils 0 % (0-8) Platelet Estimate Decreased L Platelet Morphology Normal Hypochromasia 1+ Anisocytosis 1+ Sodium Level 140 MMOL/L (136-145) Potassium Level 3.4 MMOL/L (3.5-5.1) L Chloride Level 109 MMOL/L (98-107) H Carbon Dioxide Level 23 MMOL/L (21-32) Anion Gap 8 mmol/L (5-15) Blood Urea Nitrogen 16 mg/dL (7-18) Creatinine 0.9 MG/DL (0.55-1.30) Estimat Glomerular Filtration Rate mL/min (>60) Glucose Level 74 MG/DL (74-106) Calcium Level 7.8 MG/DL (8.5-10.1) L Microbiology Date/Time Source Procedure Growth Status 03/28/19 13:44 Sputum Gram Stain - Final Resulted 03/28/19 13:44 Sputum Culture - Preliminary Staphylococcus Aureus - Mrsa Resulted Objective HEAD AND NECK: Orally intubated with NG-tube. LUNGS: Coarse rhonchi. CARDIOVASCULAR:Regular S1 and S2 with no gallop or murmur. ABDOMEN: Soft. EXTREMITIES: No pitting edema. Christian Vargas MD Mar 31, 2019 13:39
[2019-03-31] MEDS: fentaNYL Citrate 1000 MCG in NS 100ml IV SCH (14:45)
--- NOTE | 2019-03-31 15:00 | NUR ---
NURSE NOTES: Family at bedside.
--- NOTE | 2019-03-31 15:17 | Hematology/Onc Progress Note ---
Assessment/Plan Assessment/Plan Assessment and Recs: # Anemia of chronic disease, multifactorial, and gi bleed --> hold off on iron or epo at this time --> anemia panel has been reviewed --> hgb trend 9.6-->8.3-->6.5-->8.1-->8.7-->6.8 --> no evidence of hemolysis --> occult blood +++ gi eval prn --> transfuse if hgb <7 --> s/p blood tx: 03/31 # Lung mass (2.5 x 2.3 x 1.8 cm right apical masslike opacity) with smaller adjacent similar smaller opacities. Favor scarring, but the possibility of neoplasm cannot be ruled out. 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, r/o mets --> patient is on pressors so hold off on diagnosis until more stable --> at some point will need a tissue diagnosis, as well as further w/u --> given advanced age, hold off on any extensive immediate care --> on xarelto at this time # DVT + Pulmonary embolism history could be related to mass/malignancy * HYPERCOAGULABLE DISORDER* --> on xarelto, okay to dc to snf on this --> Once peg placed, NOW restarted xarelto --> xarelto has been started # Thrombocytopenia likely due to infection --> trend 203-->124-->121-->100k-->121k --> smear reviewed and no schistocytes noted # Leukocytosis is 2/2 septic shock with uti --> has been started on abx (vanc/zosyn) --> further w/u for altered mental status --> wbc 14-->19.7-->21-->9.6-->9.3 # Iron Overload --> Ferrtin 1327 continue to monitor consider chelation therapy prior to blood tx. --> on iv iron # Renal insufficiency --> as per renal recs # Respiratory failure is on vent --> sbp per pulm # Hypotension on fluids now better --> abx and pressors # DVT ppx --> xarelto started The timing of this note does not necessarily reflect the time of the patient was seen. GREATLY APPRECIATE CONSULTATION. Subjective Allergies: Coded Allergies: No Known Allergies (Unverified , 01/18/19) Subjective 03/28: labs have been reviewed, hgb is less than 7, hgb 6.5, and prbc that has been ordered 03/29: in icu, on abx, no signs of distress, blood tx completed, labs reviewed 03/30: hgb is better, remains in the icu, on pressors levo, otherwise gtf started 03/31: icu, hgb 6.8, blood tx ordered, on rivaroxaban, vent, ng Objective Objective Current Medications Medications (Trade) Dose Ordered Sig/Vaughn Route PRN Reason Start Time Stop Time Status Last Admin Dose Admin Acetaminophen (Tylenol) 650 mg Q4H PRN NG Mild Pain/Temp > 100.5 03/30/19 18:42 04/29/19 18:41 Albuterol/ Ipratropium (Albuterol/ Ipratropium) 3 ml Q4H PRN HHN Shortness of Breath 03/26/19 17:30 03/31/19 17:29 Ascorbic Acid (Vitamin C) 250 mg TWICE A DAY NG 03/31/19 18:00 04/26/19 17:59 Chlorhexidine Gluconate (Michelle-Hex 2%) 1 applic DAILY@2000 TOPIC 03/27/19 20:00 04/26/19 19:59 03/30/19 21:35 Fentanyl Citrate 1000 mcg/Sodium Chloride 100 ml @ 0 mls/hr Q24H IV 03/28/19 14:45 04/04/19 14:44 03/28/19 20:47 Levothyroxine Sodium (Synthroid) 100 mcg DAILY@0630 NG 03/31/19 06:30 04/30/19 06:29 03/31/19 05:57 Midazolam HCl (Versed 2mg/2ml vial) 1 mg Q2H PRN IVP For Anxiety 03/28/19 14:45 04/27/19 14:44 Midodrine (Pro-Amatine) 5 mg EVERY 8 HOURS NG 03/31/19 14:30 04/27/19 17:59 03/31/19 14:48 Norepinephrine Bitartrate 8 mg/ Dextrose 500 ml @ 0 mls/hr Q24H IV 03/27/19 07:00 04/26/19 06:59 03/31/19 09:26 Pantoprazole (Protonix) 40 mg DAILY IVP 03/27/19 09:00 04/26/19 08:59 03/31/19 09:18 Phenylephrine HCl 50 mg/Dextrose 250 ml @ 0 mls/hr Q24H IV 03/27/19 01:45 04/26/19 01:44 03/27/19 13:43 Piperacillin Sod/ Tazobactam Sod 3.375 gm/Sodium Chloride 110 ml @ 27.5 mls/hr EVERY 8 HOURS IVPB 03/26/19 22:00 04/04/19 21:59 03/31/19 14:49 Rivaroxaban (Xarelto) 20 mg QPM NG 03/31/19 16:30 04/29/19 16:29 Sodium Hypochlorite (Dakin's Quarter Strength) 1 applic BEDTIME TOPIC 03/30/19 21:00 04/27/19 00:00 03/30/19 22:24 Vancomycin HCl (Vanco rx to dose) 1 ea DAILY PRN MISC Per rx protocol 03/27/19 16:00 04/26/19 15:59 Vancomycin HCl 500 mg/Dextrose 110 ml @ 110 mls/hr Q12HR@0400,1600 IVPB 03/31/19 04:00 04/05/19 03:59 03/31/19 03:45 Zinc Sulfate (Zinc Sulfate) 220 mg DAILY NG 03/31/19 09:00 04/27/19 08:59 03/31/19 09:17 Last 24 Hour Vital Signs Date Time Temp Pulse Resp B/P (MAP) Pulse Ox O2 Delivery O2 Flow Rate FiO2 03/31/19 14:43 108 16 35 03/31/19 13:27 79 16 40 03/31/19 13:15 84 16 109/70 (83) 100 03/31/19 13:00 66 16 127/54 (78) 100 03/31/19 12:45 60 16 117/51 (73) 100 03/31/19 12:30 89 16 107/48 (67) 100 03/31/19 12:15 60 16 104/49 (67) 100 03/31/19 12:00 Mechanical Ventilator 03/31/19 12:00 62 16 117/53 (74) 100 03/31/19 11:45 100 17 100/50 (67) 100 03/31/19 11:30 85 16 125/60 (81) 100 03/31/19 11:26 118 03/31/19 11:15 102 16 91/61 (71) 100 03/31/19 11:00 124 17 93/57 (69) 100 03/31/19 10:58 106 17 95/63 (74) 100 03/31/19 10:45 94 15 101/65 (77) 100 03/31/19 10:30 122 16 93/55 (68) 100 03/31/19 10:30 40 03/31/19 10:30 125 16 40 03/31/19 10:29 40 03/31/19 10:15 107 17 132/88 (103) 100 03/31/19 10:00 111 18 82/51 (61) 100 03/31/19 09:45 132 21 155/83 (107) 100 03/31/19 09:30 122 16 104/69 (81) 100 03/31/19 09:26 112/71 03/31/19 09:15 82 17 112/71 (85) 100 03/31/19 09:00 122 18 110/71 (84) 100 03/31/19 08:45 115 17 97/64 (75) 100 03/31/19 08:30 83 16 40 03/31/19 08:30 98.2 100 16 95/55 (68) 100 03/31/19 08:15 123 16 90/52 (65) 100 03/31/19 08:00 117 13 116/63 (80) 100 03/31/19 08:00 Mechanical Ventilator 03/31/19 07:55 76 17 40 03/31/19 07:55 40 03/31/19 07:55 100 03/31/19 07:45 82 17 114/50 (71) 100 03/31/19 07:37 60 03/31/19 07:30 103 16 114/57 (76) 100 03/31/19 07:15 71 16 120/62 (81) 100 03/31/19 07:00 98 18 120/68 (85) 100 03/31/19 06:32 111 16 40 03/31/19 06:00 68 16 116/69 (85) 100 03/31/19 05:03 110 16 40 03/31/19 05:00 75 16 106/62 (77) 100 03/31/19 05:00 106/62 03/31/19 04:45 102/57 03/31/19 04:00 98 16 102/57 (72) 100 03/31/19 04:00 Mechanical Ventilator 03/31/19 04:00 40 03/31/19 03:45 98/59 03/31/19 03:34 66 03/31/19 03:30 75 16 82/46 (58) 100 03/31/19 03:30 82/44 03/31/19 03:03 109 16 40 03/31/19 03:00 82 16 96/72 (80) 100 03/31/19 02:30 64 16 122/71 (88) 100 03/31/19 02:25 122/71 03/31/19 02:15 113 16 122/71 (88) 100 03/31/19 02:10 128/70 03/31/19 02:00 71 16 105/71 (82) 97 03/31/19 01:55 131/57 03/31/19 01:45 68 16 131/57 (81) 100 03/31/19 01:45 72 132/57 03/31/19 01:40 132/57 03/31/19 01:30 75 16 143/84 (103) 100 03/31/19 01:30 72 16 141/64 (89) 100 03/31/19 01:25 143/84 03/31/19 01:15 78 16 143/84 (103) 100 03/31/19 01:15 68 16 40 03/31/19 01:15 78 16 143/84 (103) 100 03/31/19 01:10 142/60 03/31/19 01:00 67 16 113/70 (84) 100 03/31/19 01:00 66 16 142/60 (87) 100 03/31/19 01:00 66 16 142/60 (87) 100 03/31/19 00:55 113/70 03/31/19 00:45 120 18 113/70 (84) 100 03/31/19 00:45 120 16 113/70 (84) 100 03/31/19 00:45 120 16 113/70 (84) 100 03/31/19 00:45 120 16 113/70 (84) 100 03/31/19 00:40 129/56 03/31/19 00:30 66 16 129/56 (80) 100 03/31/19 00:30 66 16 129/56 (80) 100 03/31/19 00:30 66 16 129/56 (80) 100 03/31/19 00:30 66 16 129/56 (80) 100 03/31/19 00:25 88/59 03/31/19 00:15 126 17 88/59 (69) 100 03/31/19 00:15 126 17 88/59 (69) 100 03/31/19 00:15 126 17 88/59 (69) 100 03/31/19 00:15 126 17 88/59 (69) 100 03/31/19 00:10 78/53 03/31/19 00:08 129 03/31/19 00:04 127 16 78/53 (61) 100 03/31/19 00:04 127 16 78/53 (61) 100 03/31/19 00:04 127 16 78/53 (61) 100 03/31/19 00:03 128 16 67/41 (50) 100 03/31/19 00:03 128 16 67/41 (50) 100 03/31/19 00:03 128 16 67/41 (50) 100 03/31/19 00:00 119 16 70/49 (56) 100 03/31/19 00:00 119 16 70/49 (56) 100 03/31/19 00:00 Mechanical Ventilator 03/31/19 00:00 89 15 78/52 (61) 100 03/31/19 00:00 119 16 70/49 (56) 100 03/31/19 00:00 119 16 70/49 (56) 100 03/30/19 23:16 64 18 40 03/30/19 23:00 98 18 121/62 (81) 100 03/30/19 22:00 98.1 75 15 119/52 (74) 100 03/30/19 21:28 55 16 40 03/30/19 21:00 82 18 119/52 (74) 100 03/30/19 20:00 65 16 94/48 (63) 100 03/30/19 20:00 Mechanical Ventilator 03/30/19 20:00 40 03/30/19 19:46 54 03/30/19 19:33 70 19 40 03/30/19 19:00 66 18 116/46 (69) 100 03/30/19 18:00 62 16 108/45 (66) 100 03/30/19 17:11 68 19 40 03/30/19 17:00 101 14 93/58 (70) 100 03/30/19 16:30 96 14 88/46 (60) 100 03/30/19 16:00 40 03/30/19 16:00 80 03/30/19 16:00 Mechanical Ventilator 03/30/19 16:00 97.6 80 16 125/48 (73) 100 03/30/19 15:30 79 16 123/45 (71) 10 03/30/19 15:23 59 16 40 03/30/19 15:00 69 16 137/54 (81) 100 03/30/19 15:00 137/54 03/30/19 14:30 68 16 98/56 (70) 100 03/30/19 14:00 65 16 88/46 (60) 100 03/30/19 13:30 60 16 100/66 (77) 100 03/30/19 13:00 63 16 128/74 (92) 100 03/30/19 12:53 81 25 40 03/30/19 12:30 63 17 97/34 (55) 100 03/30/19 12:00 Mechanical Ventilator 03/30/19 12:00 97.3 65 16 100/48 (65) 100 03/30/19 12:00 55 03/30/19 11:30 63 16 97/51 (66) 100 03/30/19 11:15 87/38 03/30/19 11:15 66 16 83/38 (53) 100 03/30/19 11:00 63 16 145/58 (87) 100 03/30/19 11:00 64 16 40 03/30/19 10:30 78 16 119/54 (75) 100 03/30/19 10:00 65 16 128/48 (74) 100 03/30/19 09:30 108 16 90/40 (57) 100 03/30/19 09:30 90/40 03/30/19 09:00 106 16 116/63 (80) 100 03/30/19 08:41 40 03/30/19 08:40 78 17 40 03/30/19 08:40 100 03/30/19 08:40 40 03/30/19 08:30 120 17 135/63 (87) 100 03/30/19 08:00 40 03/30/19 08:00 Mechanical Ventilator 03/30/19 08:00 96.8 109 16 122/107 (112) 100 03/30/19 08:00 52 03/30/19 07:30 65 15 122/47 (72) 100 03/30/19 07:00 80 17 145/58 (87) 100 03/30/19 07:00 80 17 145/58 (87) 100 03/30/19 07:00 145/58 03/30/19 06:58 79 16 40 03/30/19 06:45 72 16 84/43 (57) 100 03/30/19 06:30 67 17 101/52 (68) 100 03/30/19 06:30 83/43 03/30/19 06:00 105/47 03/30/19 06:00 58 16 114/43 (66) 100 03/30/19 05:30 65 16 110/43 (65) 100 03/30/19 05:15 66 16 40 03/30/19 05:00 117/42 03/30/19 05:00 62 16 117/42 (67) 100 03/30/19 04:30 67 16 116/55 (75) 100 03/30/19 04:00 40 03/30/19 04:00 Mechanical Ventilator 03/30/19 04:00 99/49 03/30/19 04:00 97.5 62 6 99/49 (66) 100 03/30/19 04:00 68 03/30/19 03:30 77 12 137/97 (110) 100 03/30/19 03:00 112/48 03/30/19 03:00 59 16 112/48 (69) 100 03/30/19 02:42 56 16 40 03/30/19 02:30 65 16 112/50 (70) 100 03/30/19 02:00 112/54 03/30/19 02:00 75 16 130/65 (86) 100 03/30/19 01:30 56 6 128/58 (81) 100 03/30/19 01:00 66 16 138/62 (87) 100 03/30/19 01:00 138/62 03/30/19 00:50 61 17 40 03/30/19 00:30 55 16 116/63 (80) 100 03/30/19 00:00 40 03/30/19 00:00 97.4 66 15 140/64 (89) 100 03/30/19 00:00 52 03/30/19 00:00 140/64 03/30/19 00:00 Mechanical Ventilator 03/29/19 23:30 52 15 122/63 (82) 100 03/29/19 23:25 53 16 40 03/29/19 23:00 67 16 131/61 (84) 100 03/29/19 23:00 131/61 03/29/19 22:30 55 13 113/56 (75) 100 03/29/19 22:00 53 16 101/60 (74) 100 03/29/19 22:00 101/60 03/29/19 21:30 67 16 121/55 (77) 100 03/29/19 21:00 73 16 109/49 (69) 100 03/29/19 21:00 109/49 03/29/19 20:53 56 16 40 03/29/19 20:30 74 16 136/68 (90) 100 03/29/19 20:00 97.5 54 16 117/46 (69) 100 03/29/19 20:00 117/46 03/29/19 20:00 40 03/29/19 20:00 Mechanical Ventilator 03/29/19 20:00 52 03/29/19 19:30 60 17 105/44 (64) 100 03/29/19 19:06 66 16 40 03/29/19 19:00 57 17 101/54 (70) 100 03/29/19 18:45 117 16 100/51 (67) 100 03/29/19 18:30 79 16 94/40 (58) 100 03/29/19 18:15 60 16 81/48 (59) 100 03/29/19 18:00 62 16 79/44 (56) 100 03/29/19 17:45 66 16 125/55 (78) 100 03/29/19 17:30 70 16 114/56 (75) 100 03/29/19 17:25 64 16 40 03/29/19 17:15 76 16 126/63 (84) 100 03/29/19 17:00 49 16 122/60 (80) 100 03/29/19 16:00 Mechanical Ventilator 03/29/19 16:00 65 03/29/19 16:00 98.6 48 16 103/44 (63) 100 03/29/19 16:00 40 Intake and Output 03/30/19 03/31/19 18:59 06:59 Intake Total 1376.2325 ml 1282.50 ml Output Total 855 ml 385 ml Balance 521.2325 ml 897.50 ml Intake Free Water 200 ml 100 ml IV Total 631.2325 ml 547.50 ml Tube Feeding 415 ml 635 ml Other 130 ml Output Urine Total 855 ml 385 ml # Bowel Movements 4 Labs Test 03/29/19 03:47 03/29/19 04:00 03/30/19 04:35 03/30/19 19:00 Stool Occult Blood Positive (NEGATIVE) White Blood Count 9.6 K/UL (4.8-10.8) 10.1 K/UL (4.8-10.8) Red Blood Count 2.88 M/UL (4.70-6.10) 3.09 M/UL (4.70-6.10) Hemoglobin 8.1 G/DL (14.2-18.0) 8.7 G/DL (14.2-18.0) Hematocrit 25.6 % (42.0-52.0) 27.6 % (42.0-52.0) Mean Corpuscular Volume 89 FL (80-99) 90 FL (80-99) Mean Corpuscular Hemoglobin 28.2 PG (27.0-31.0) 28.2 PG (27.0-31.0) Mean Corpuscular Hemoglobin Concent 31.7 G/DL (32.0-36.0) 31.5 G/DL (32.0-36.0) Red Cell Distribution Width 16.2 % (11.6-14.8) 16.1 % (11.6-14.8) Platelet Count 121 K/UL (150-450) 100 K/UL (150-450) Mean Platelet Volume 4.9 FL (6.5-10.1) 5.4 FL (6.5-10.1) Neutrophils (%) (Auto) 80.4 % (45.0-75.0) 80.1 % (45.0-75.0) Lymphocytes (%) (Auto) 16.9 % (20.0-45.0) 16.3 % (20.0-45.0) Monocytes (%) (Auto) 2.2 % (1.0-10.0) 2.9 % (1.0-10.0) Eosinophils (%) (Auto) 0.4 % (0.0-3.0) 0.5 % (0.0-3.0) Basophils (%) (Auto) 0.1 % (0.0-2.0) 0.2 % (0.0-2.0) Sodium Level 138 MMOL/L (136-145) 139 MMOL/L (136-145) Potassium Level 3.1 MMOL/L (3.5-5.1) 3.7 MMOL/L (3.5-5.1) Chloride Level 107 MMOL/L (98-107) 106 MMOL/L (98-107) Carbon Dioxide Level 25 MMOL/L (21-32) 23 MMOL/L (21-32) Anion Gap 6 mmol/L (5-15) 10 mmol/L (5-15) Blood Urea Nitrogen 18 mg/dL (7-18) 15 mg/dL (7-18) Creatinine 1.2 MG/DL (0.55-1.30) 1.1 MG/DL (0.55-1.30) Estimat Glomerular Filtration Rate mL/min (>60) mL/min (>60) Glucose Level 127 MG/DL (74-106) 109 MG/DL (74-106) Calcium Level 8.2 MG/DL (8.5-10.1) 8.0 MG/DL (8.5-10.1) Vancomycin Level Trough 20.8 ug/mL (5.0-12.0) 25.8 ug/mL (5.0-12.0) Total Bilirubin 0.5 MG/DL (0.2-1.0) Aspartate Amino Transf (AST/SGOT) 28 U/L (15-37) Alanine Aminotransferase (ALT/SGPT) 10 U/L (12-78) Alkaline Phosphatase 96 U/L (46-116) Total Protein 6.4 G/DL (6.4-8.2) Albumin 1.0 G/DL (3.4-5.0) Globulin 5.4 g/dL Albumin/Globulin Ratio 0.2 (1.0-2.7) Lipase 60 U/L (73-393) Test 03/31/19 03:15 White Blood Count 9.3 K/UL (4.8-10.8) Red Blood Count 2.40 M/UL (4.70-6.10) Hemoglobin 6.8 G/DL (14.2-18.0) Hematocrit 21.3 % (42.0-52.0) Mean Corpuscular Volume 88 FL (80-99) Mean Corpuscular Hemoglobin 28.5 PG (27.0-31.0) Mean Corpuscular Hemoglobin Concent 32.2 G/DL (32.0-36.0) Red Cell Distribution Width 15.5 % (11.6-14.8) Platelet Count 121 K/UL (150-450) Mean Platelet Volume 5.3 FL (6.5-10.1) Neutrophils (%) (Auto) % (45.0-75.0) Lymphocytes (%) (Auto) % (20.0-45.0) Monocytes (%) (Auto) % (1.0-10.0) Eosinophils (%) (Auto) % (0.0-3.0) Basophils (%) (Auto) % (0.0-2.0) Differential Total Cells Counted 100 Neutrophils % (Manual) 75 % (45-75) Lymphocytes % (Manual) 19 % (20-45) Monocytes % (Manual) 6 % (1-10) Eosinophils % (Manual) 0 % (0-3) Basophils % (Manual) 0 % (0-2) Band Neutrophils 0 % (0-8) Platelet Estimate Decreased Platelet Morphology Normal Hypochromasia 1+ Anisocytosis 1+ Sodium Level 140 MMOL/L (136-145) Potassium Level 3.4 MMOL/L (3.5-5.1) Chloride Level 109 MMOL/L (98-107) Carbon Dioxide Level 23 MMOL/L (21-32) Anion Gap 8 mmol/L (5-15) Blood Urea Nitrogen 16 mg/dL (7-18) Creatinine 0.9 MG/DL (0.55-1.30) Estimat Glomerular Filtration Rate mL/min (>60) Glucose Level 74 MG/DL (74-106) Calcium Level 7.8 MG/DL (8.5-10.1) Height (Feet): 6 Height (Inches): 6.00 Weight (Pounds): 174 Objective PE General: severe distress, chronically Ill ENT: moist mucus membranes, ng++ Neck: limited range of motion Respiratory: respiratory distress, rhonch ++ vent Cardiovascular: RRr, no mgr Gastrointestinal: normal inspection, soft ++ peg Msk: normal inspection Neuro: responsive, motor weakness Skin: no rash Jake Womack MD Mar 31, 2019 15:17
--- NOTE | 2019-03-31 15:38 | NUR ---
CASE MANAGEMENT: REVIEW 03/31/2019 SI:SEPSIS. PNEUMONITIS. T 98.2 HR 100 RR 16 B/P 95/55 SATS 100% ON MECH VENT FIO2 40 HGB 6.8 HCT 21.3 K 3.4 CL 109 CA 7.8 IS:ZOSYN IV Q8H MIDODRINE NG Q8H PROTONIX IV QD VANCO IV Q12H PHENYLEPHRINE IV PER PARAMETERS LEVOPHED IV PER PARAMETERS FENTANYL PER PARAMETERS ICU
[2019-03-31] MEDS: Xarelto 10mg tab NG SCH (17:11)
[2019-03-31] MEDS ORDERED: Ascorbic Acid 500mg tab NG SCH (18:00)
--- NOTE | 2019-03-31 19:15 | NUR ---
HAND-OFF: Report given to Anabel Valencia RN.
--- NOTE | 2019-03-31 19:18 | NUR ---
NURSE NOTES: Received bedside report from CELINE Jones.Patient stable,awake,alert,confused at time,SR on cafeteria monitor,no c/o pain,no respiratory distress noted,ET 24 cm AC mode 16 TV 600 FiO2 35% PEEP 5 tolerated well,R NGT running with Osmolite 1.5@ 60ml/hr no residual at this time,tolerated feeding well,PICC line on R femoral TLC asymptomatic, patent,intact,Levophed running @ 3mcg/min,BP stable,bed secured in a low safety position,call light within a reach.Will continue to monitor and follow POC.
--- NOTE | 2019-03-31 19:22 | Surgery Progress Note ---
Surgery Progress Note Subjective Additional Comments no acute events Objective Last 24 Hour Vital Signs Date Time Temp Pulse Resp B/P (MAP) Pulse Ox O2 Delivery O2 Flow Rate FiO2 03/31/19 19:00 81 16 120/50 (73) 100 03/31/19 19:00 120/50 03/31/19 18:30 89 6 119/47 (71) 100 03/31/19 18:15 64 14 119/66 (83) 100 03/31/19 18:00 70 11 110/92 (98) 100 03/31/19 18:00 110/92 03/31/19 17:45 66 12 135/73 (93) 100 03/31/19 17:30 60 16 117/55 (75) 100 03/31/19 17:15 65 16 112/52 (72) 100 03/31/19 17:00 82 14 109/53 (71) 100 03/31/19 17:00 109/53 03/31/19 16:45 119 17 127/60 (82) 100 03/31/19 16:32 95 17 35 03/31/19 16:30 91 14 114/48 (70) 100 03/31/19 16:15 132 20 100/69 (79) 100 03/31/19 16:00 Mechanical Ventilator 03/31/19 16:00 105/61 03/31/19 16:00 97.0 78 16 105/61 (76) 100 03/31/19 16:00 35 03/31/19 15:45 88 17 120/53 (75) 100 03/31/19 15:39 108 03/31/19 15:30 74 16 112/51 (71) 100 03/31/19 15:15 107 17 113/59 (77) 100 03/31/19 15:00 106 16 93/56 (68) 100 03/31/19 15:00 93/56 03/31/19 14:45 108 16 101/56 (71) 100 03/31/19 14:43 108 16 35 03/31/19 14:40 35 03/31/19 14:30 59 16 121/53 (75) 100 03/31/19 14:15 69 16 128/65 (86) 100 03/31/19 14:00 59 16 117/62 (80) 100 03/31/19 14:00 117/62 03/31/19 13:45 63 16 120/57 (78) 100 03/31/19 13:42 96.9 68 16 138/57 (84) 100 03/31/19 13:30 62 17 122/68 (86) 100 03/31/19 13:27 79 16 40 03/31/19 13:15 84 16 109/70 (83) 100 03/31/19 13:00 127/54 03/31/19 13:00 66 16 127/54 (78) 100 03/31/19 12:45 60 16 117/51 (73) 100 03/31/19 12:30 89 16 107/48 (67) 100 03/31/19 12:15 60 16 104/49 (67) 100 03/31/19 12:00 Mechanical Ventilator 03/31/19 12:00 117/53 03/31/19 12:00 62 16 117/53 (74) 100 03/31/19 11:45 100 17 100/50 (67) 100 03/31/19 11:30 85 16 125/60 (81) 100 03/31/19 11:26 118 03/31/19 11:15 102 16 91/61 (71) 100 03/31/19 11:00 96.8 124 17 93/57 (69) 100 03/31/19 11:00 93/57 03/31/19 10:58 106 17 95/63 (74) 100 03/31/19 10:45 94 15 101/65 (77) 100 03/31/19 10:30 122 16 93/55 (68) 100 03/31/19 10:30 40 03/31/19 10:30 125 16 40 03/31/19 10:29 40 03/31/19 10:15 107 17 132/88 (103) 100 03/31/19 10:00 82/51 03/31/19 10:00 111 18 82/51 (61) 100 03/31/19 09:45 132 21 155/83 (107) 100 03/31/19 09:30 122 16 104/69 (81) 100 03/31/19 09:26 112/71 03/31/19 09:15 82 17 112/71 (85) 100 03/31/19 09:00 122 18 110/71 (84) 100 03/31/19 08:45 115 17 97/64 (75) 100 03/31/19 08:30 83 16 40 03/31/19 08:30 98.2 100 16 95/55 (68) 100 03/31/19 08:15 123 16 90/52 (65) 100 03/31/19 08:00 117 13 116/63 (80) 100 03/31/19 08:00 Mechanical Ventilator 03/31/19 07:55 76 17 40 03/31/19 07:55 40 03/31/19 07:55 100 03/31/19 07:45 82 17 114/50 (71) 100 03/31/19 07:37 60 03/31/19 07:30 103 16 114/57 (76) 100 03/31/19 07:15 71 16 120/62 (81) 100 03/31/19 07:00 98 18 120/68 (85) 100 03/31/19 06:32 111 16 40 03/31/19 06:00 68 16 116/69 (85) 100 03/31/19 05:03 110 16 40 03/31/19 05:00 75 16 106/62 (77) 100 03/31/19 05:00 106/62 03/31/19 04:45 102/57 03/31/19 04:00 98 16 102/57 (72) 100 03/31/19 04:00 Mechanical Ventilator 03/31/19 04:00 40 03/31/19 03:45 98/59 03/31/19 03:34 66 03/31/19 03:30 75 16 82/46 (58) 100 03/31/19 03:30 82/44 03/31/19 03:03 109 16 40 03/31/19 03:00 82 16 96/72 (80) 100 03/31/19 02:30 64 16 122/71 (88) 100 03/31/19 02:25 122/71 03/31/19 02:15 113 16 122/71 (88) 100 03/31/19 02:10 128/70 03/31/19 02:00 71 16 105/71 (82) 97 03/31/19 01:55 131/57 03/31/19 01:45 68 16 131/57 (81) 100 03/31/19 01:45 72 132/57 03/31/19 01:40 132/57 8/23/19 01:30 75 16 143/84 (103) 100 03/31/19 01:30 72 16 141/64 (89) 100 03/31/19 01:25 143/84 03/31/19 01:15 78 16 143/84 (103) 100 03/31/19 01:15 68 16 40 03/31/19 01:15 78 16 143/84 (103) 100 03/31/19 01:10 142/60 03/31/19 01:00 67 16 113/70 (84) 100 03/31/19 01:00 66 16 142/60 (87) 100 03/31/19 01:00 66 16 142/60 (87) 100 03/31/19 00:55 113/70 03/31/19 00:45 120 18 113/70 (84) 100 03/31/19 00:45 120 16 113/70 (84) 100 03/31/19 00:45 120 16 113/70 (84) 100 03/31/19 00:45 120 16 113/70 (84) 100 03/31/19 00:40 129/56 03/31/19 00:30 66 16 129/56 (80) 100 03/31/19 00:30 66 16 129/56 (80) 100 03/31/19 00:30 66 16 129/56 (80) 100 03/31/19 00:30 66 16 129/56 (80) 100 03/31/19 00:25 88/59 03/31/19 00:15 126 17 88/59 (69) 100 03/31/19 00:15 126 17 88/59 (69) 100 03/31/19 00:15 126 17 88/59 (69) 100 03/31/19 00:15 126 17 88/59 (69) 100 03/31/19 00:10 78/53 03/31/19 00:08 129 03/31/19 00:04 127 16 78/53 (61) 100 03/31/19 00:04 127 16 78/53 (61) 100 03/31/19 00:04 127 16 78/53 (61) 100 03/31/19 00:03 128 16 67/41 (50) 100 03/31/19 00:03 128 16 67/41 (50) 100 03/31/19 00:03 128 16 67/41 (50) 100 03/31/19 00:00 119 16 70/49 (56) 100 03/31/19 00:00 119 16 70/49 (56) 100 03/31/19 00:00 Mechanical Ventilator 03/31/19 00:00 89 15 78/52 (61) 100 03/31/19 00:00 119 16 70/49 (56) 100 03/31/19 00:00 119 16 70/49 (56) 100 03/30/19 23:16 64 18 40 03/30/19 23:00 98 18 121/62 (81) 100 03/30/19 22:00 98.1 75 15 119/52 (74) 100 03/30/19 21:28 55 16 40 03/30/19 21:00 82 18 119/52 (74) 100 03/30/19 20:00 65 16 94/48 (63) 100 03/30/19 20:00 Mechanical Ventilator 03/30/19 20:00 40 03/30/19 19:46 54 03/30/19 19:33 70 19 40 I&O Intake and Output 03/30/19 03/31/19 19:00 07:00 Intake Total 1319.9325 ml 1200.00 ml Output Total 805 ml 415 ml Balance 514.9325 ml 785.00 ml Intake Free Water 200 ml 100 ml IV Total 519.9325 ml 520.00 ml Tube Feeding 470 ml 580 ml Other 130 ml Output Urine Total 805 ml 415 ml # Bowel Movements 4 Dressing: saturated Wound: other Drains: other Cardiovascular: RSR Respiratory: decreased breath sounds Abdomen: soft, present bowel sounds, non-distended Extremities: no cyanosis Laboratory Tests Test 03/31/19 03:15 White Blood Count 9.3 K/UL (4.8-10.8) Red Blood Count 2.40 M/UL (4.70-6.10) L Hemoglobin 6.8 G/DL (14.2-18.0) *L Hematocrit 21.3 % (42.0-52.0) L Mean Corpuscular Volume 88 FL (80-99) Mean Corpuscular Hemoglobin 28.5 PG (27.0-31.0) Mean Corpuscular Hemoglobin Concent 32.2 G/DL (32.0-36.0) Red Cell Distribution Width 15.5 % (11.6-14.8) H Platelet Count 121 K/UL (150-450) L Mean Platelet Volume 5.3 FL (6.5-10.1) L Neutrophils (%) (Auto) % (45.0-75.0) Lymphocytes (%) (Auto) % (20.0-45.0) Monocytes (%) (Auto) % (1.0-10.0) Eosinophils (%) (Auto) % (0.0-3.0) Basophils (%) (Auto) % (0.0-2.0) Differential Total Cells Counted 100 Neutrophils % (Manual) 75 % (45-75) Lymphocytes % (Manual) 19 % (20-45) L Monocytes % (Manual) 6 % (1-10) Eosinophils % (Manual) 0 % (0-3) Basophils % (Manual) 0 % (0-2) Band Neutrophils 0 % (0-8) Platelet Estimate Decreased L Platelet Morphology Normal Hypochromasia 1+ Anisocytosis 1+ Sodium Level 140 MMOL/L (136-145) Potassium Level 3.4 MMOL/L (3.5-5.1) L Chloride Level 109 MMOL/L (98-107) H Carbon Dioxide Level 23 MMOL/L (21-32) Anion Gap 8 mmol/L (5-15) Blood Urea Nitrogen 16 mg/dL (7-18) Creatinine 0.9 MG/DL (0.55-1.30) Estimat Glomerular Filtration Rate mL/min (>60) Glucose Level 74 MG/DL (74-106) Calcium Level 7.8 MG/DL (8.5-10.1) L Plan Problems: (1) Respiratory distress (2) Decubitus skin ulcer Assessment & Plan: Pt presented on admission with multiple pressure injuries and ulcerations 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 Base of wound has mixed slough and necrosis. Edges adherent and dark . Periwound indurated with darker skin tone. Pt complained of pain when minimally palpated. Mild odor noted Full thickness ulcer R tibia. Base of wound has slough. Edges adherent and flat ,Periwound without erythema or fluctuance. Stable dry eschar noted to R hallux. edges are dark but adherent to base of wound. Periwound dark without erythema or fluctuance Stable dry eschar noted to R st metatarsal head. Periwound pale without fluctuance Stable dry eschar noted to dorsal aspects of R 3rd and 4th metatarsals. Full thickness ulcer lateral R 5th metatarsal. base of wound with some areas of necrosis and edges are black . No odor or exudate noted Stable dry eschar R heel . Periwound fluctuant without erythema. Pt complained of pain when minimally palpated. Stable dry eschar noted to dorso/flexor L foot. Periwound without erythema , induration or fluctuance Reabsorbing blood blister noted to medial L foot. Periwound without erythema or fluctuance L heel is dry and blanchable with historical scarring from previous wounds .Dry flaky skin noted to both feet. Tx.Plan: Cleanse sacral wound with Dakin's 0.125% stefani. Loose pack wound with Dakin's moist Kerlix. Apply Moisture Barrier paste to borders and cover with Optifoam drsg. Twice daily and prn. Cleanse Wound R tibia with Saline. Apply Therahoney. Cover with Optifoam drsg. Change every 3 days and prn.Apply Cavilon Skin BArrier to both heels. Cover each heel with Optifoam drsg. change every 7 days and prn APM/PHIL mattress overlay. Reposition at least every 2hours or as tolerated. Off-load heels with pillow. (3) Severe sepsis Assessment & Plan: leukocytosis resolved anemia lactic acidosis resolved improving septic MRSA bacteremia labs noted imaging noted Cont IV abx as per ID feeds wounds evaluated and care plan as above labs noted f/u cxr will follow with recs thank you DAILY ESTIMATED NEEDS: Needs based on Wound, critical care 78.6kg 25-30 kcals/kg 1392-8276 total kcals 1.25-2 g protein/kg 98-157 g total protein Fluid per MD, on lasix NUTRITION DIAGNOSIS: 1) Increased kcal/ pro needs r/t wound healing as evidenced by full thickness sacral wound, pending updated eval. 2) Swallowing difficulty r/t respiratory status as evidenced by s/p RR, pt now orally intubated, on pressor support. CURRENT DIET: Regular-> pt now intubated ENTERAL NUTRITION RECOMMENDATIONS: Osmolite 1.5 @55ml/hr x24 hrs + Prosource BID to provide 1320ml, 1980 kcal, 83g + 22g pro, 1006ml free H2O - WHEN HEMODYNAMICALLY STABLE, rec to obtain GI access, initiate non oral feeds to meed est nutritional needs - Start Osmolite 1.5 @25ml/hr for 6 hrs, advance as tolerated 10ml/hr q4-6 hrs to goal. - Flush per MD/ HOB over 30 degrees ADDITIONAL RECOMMENDATIONS: 1) Obtain a CALIBRATED bed wt 2) Feed w/ hemodynamic stability -> currently on pressors x2 3) WOUND CARE: Add BRUCE BID w/ GI access Add VIT C 250mg BID Add ZnSO4 220mg daily x10 days 4) On lasix, monitor lytes daily 5) ENVIRONMENTAL CONSERVATION OFFICER eval upon extubation (4) Dyspnea (5) Hypoxia Tawanda Alfaro Mar 31, 2019 19:22
[2019-03-31] MEDS: Dakin's 0.125% Soln (Quarter Strength) 16oz TOPIC SCH (19:59)
[2019-03-31] MEDS: Dyna-Hex 2% Top Sol 2oz TOPIC SCH (19:59)
[2019-03-31] MEDS: Ascorbic Acid 500mg tab NG SCH (20:03)
--- NOTE | 2019-03-31 20:58 | NUR ---
NURSE NOTES: Patient stable,HOB elevated,pt watching TV.
[2019-04-01] VITALS (86 sets, daily range): BP systolic 71–162; BP diastolic 32–100
--- NOTE | 2019-04-01 00:20 | NUR ---
NURSE NOTES: Patient clean and dry,mouth care provided,dressings changed as per MD order.
[2019-04-01] MEDS: Phenylephrine 50 MG in D5W 245 ML IV SCH (01:45)
--- NOTE | 2019-04-01 02:34 | NUR ---
NURSE NOTES: Pt stable,awake,no c/o pain,turned and reposition,NGT in place @ 65 cm,pt still on soft bilateral restrains d/t removing NGT and ET tube.Will continue to monitor.
[2019-04-01] MEDS: Vancomycin 500mg/D5W 110ml IVPB SCH ×4 (04:08→16:27)
--- NOTE | 2019-04-01 05:00 | NUR ---
NURSE NOTES: Pt stable,tolerated vent setting well,no c/o pain,no respiratory distress at this moment.
[2019-04-01] MEDS: Piperacillin/Tazobactam 3.375 GM in NS 110 ML IVPB SCH ×3 (05:51→21:44)
[2019-04-01 06:23] LABS: BASOPHILS % (AUTO) 0.5 % (0.0-2.0); EOSINOPHILS % (AUTO) 0.9 % (0.0-3.0); HEMATOCRIT 25.4 % (42.0-52.0); HEMOGLOBIN 8.1 G/DL (14.2-18.0); LYMPHOCYTES % (AUTO) 23.8 % (20.0-45.0); MEAN CORPUSCULAR VOLUME 89 FL (80-99); MONOCYTES % (AUTO) 5.4 % (1.0-10.0); NEUTROPHILS % (AUTO) 69.4 % (45.0-75.0); PLATELET COUNT 157 K/UL (150-450); RED BLOOD COUNT 2.85 M/UL (4.70-6.10); WHITE BLOOD COUNT 8.6 K/UL (4.8-10.8)
--- NOTE | 2019-04-01 07:17 | NUR ---
HAND-OFF: Report given to CELINE cook.Patient stable.
--- NOTE | 2019-04-01 07:18 | NUR ---
NURSE NOTES: Received patient in bed. Vent dependent. E T inplace. With right nare NGT. Jose cath inplace. Patient asleep, easy to arouse. Able to nod, open eyes. On bilateral soft wrist restraints. Levophed drip at 1mcg per protocol. Right femoral triple lumen cath inplace. Contact isolation observed. Will continue plan of care.
[2019-04-01] MEDS: Norepinephrine Bitartrate 8 MG in D5W 500ml 492 ML IV SCH (08:06)
[2019-04-01] MEDS: Zinc Sulfate 220mg cap NG SCH (08:06)
[2019-04-01] MEDS: Ascorbic Acid 500mg tab NG SCH ×2 (08:06→21:00)
[2019-04-01] MEDS: Pantoprazole Inj IVP SCH (08:06)
--- NOTE | 2019-04-01 12:43 | Surgery Progress Note ---
Surgery Progress Note Subjective Additional Comments labs noted micro with growth on abx still intubated dressings changed Objective Last 24 Hour Vital Signs Date Time Temp Pulse Resp B/P (MAP) Pulse Ox O2 Delivery O2 Flow Rate FiO2 04/01/19 11:53 92 21 35 04/01/19 09:45 59 12 92/38 (56) 100 04/01/19 09:32 111 15 99/66 (77) 100 04/01/19 09:31 100 04/01/19 09:30 35 04/01/19 09:30 100 16 82/53 (63) 100 04/01/19 09:29 35 04/01/19 09:15 117 28 97/69 (78) 100 04/01/19 09:00 116 26 94/61 (72) 100 04/01/19 08:56 35 04/01/19 08:49 60 15 35 35 04/01/19 08:45 103 14 127/57 (80) 04/01/19 08:30 53 16 99/45 (63) 100 04/01/19 08:15 96.8 61 17 120/49 (72) 100 04/01/19 08:06 122/55 04/01/19 08:00 51 14 122/55 (77) 100 04/01/19 08:00 Mechanical Ventilator 04/01/19 08:00 35 04/01/19 07:45 55 16 116/55 (75) 100 04/01/19 07:45 63 16 35 04/01/19 07:37 54 04/01/19 07:30 54 15 119/48 (71) 100 04/01/19 07:15 56 16 138/87 (104) 100 04/01/19 07:00 58 16 124/58 (80) 100 04/01/19 06:00 55 17 111/56 (74) 100 04/01/19 05:00 111/44 04/01/19 05:00 97.5 76 16 111/44 (66) 100 04/01/19 04:50 57 16 35 04/01/19 04:00 Mechanical Ventilator 04/01/19 04:00 62 17 118/62 (80) 100 04/01/19 04:00 35 04/01/19 03:39 54 04/01/19 03:20 57 17 35 04/01/19 03:00 56 11 112/43 (66) 100 04/01/19 03:00 124/82 04/01/19 02:00 142/64 04/01/19 02:00 55 14 121/46 (71) 100 04/01/19 02:00 55 14 121/46 (71) 100 04/01/19 01:45 65 111/55 04/01/19 01:09 61 17 35 04/01/19 01:00 56 14 120/47 (71) 100 04/01/19 01:00 140/63 04/01/19 00:00 Mechanical Ventilator 04/01/19 00:00 65 16 107/51 (69) 100 03/31/19 23:09 56 03/31/19 23:00 57 16 131/51 (77) 100 03/31/19 23:00 126/60 03/31/19 22:50 119 16 35 03/31/19 22:05 132/56 03/31/19 22:00 59 16 139/61 (87) 100 03/31/19 21:30 111 23 35 03/31/19 21:00 124/50 03/31/19 21:00 97.6 62 16 162/57 (92) 100 03/31/19 20:00 35 03/31/19 20:00 Mechanical Ventilator 03/31/19 20:00 70 12 131/50 (77) 100 03/31/19 20:00 131/50 03/31/19 19:23 58 03/31/19 19:00 81 16 120/50 (73) 100 03/31/19 19:00 120/50 03/31/19 18:50 110 16 100 03/31/19 18:50 109 22 35 03/31/19 18:30 89 6 119/47 (71) 100 03/31/19 18:15 64 14 119/66 (83) 100 03/31/19 18:00 70 11 110/92 (98) 100 03/31/19 18:00 110/92 03/31/19 17:45 66 12 135/73 (93) 100 03/31/19 17:30 60 16 117/55 (75) 100 03/31/19 17:15 65 16 112/52 (72) 100 03/31/19 17:00 82 14 109/53 (71) 100 03/31/19 17:00 109/53 03/31/19 16:45 119 17 127/60 (82) 100 03/31/19 16:32 95 17 35 03/31/19 16:30 91 14 114/48 (70) 100 03/31/19 16:15 132 20 100/69 (79) 100 03/31/19 16:00 Mechanical Ventilator 03/31/19 16:00 105/61 03/31/19 16:00 97.0 78 16 105/61 (76) 100 03/31/19 16:00 35 03/31/19 15:45 88 17 120/53 (75) 100 03/31/19 15:39 108 03/31/19 15:30 74 16 112/51 (71) 100 03/31/19 15:15 107 17 113/59 (77) 100 03/31/19 15:00 106 16 93/56 (68) 100 03/31/19 15:00 93/56 03/31/19 14:45 108 16 101/56 (71) 100 03/31/19 14:43 108 16 35 03/31/19 14:40 35 03/31/19 14:30 59 16 121/53 (75) 100 03/31/19 14:15 69 16 128/65 (86) 100 03/31/19 14:00 59 16 117/62 (80) 100 03/31/19 14:00 117/62 03/31/19 13:45 63 16 120/57 (78) 100 03/31/19 13:42 96.9 68 16 138/57 (84) 100 03/31/19 13:30 62 17 122/68 (86) 100 03/31/19 13:27 79 16 40 03/31/19 13:15 84 16 109/70 (83) 100 03/31/19 13:00 127/54 03/31/19 13:00 66 16 127/54 (78) 100 03/31/19 12:45 60 16 117/51 (73) 100 I&O Intake and Output 03/31/19 04/01/19 18:59 06:59 Intake Total 1458.75 ml 1157.50 ml Output Total 720 ml 505 ml Balance 738.75 ml 652.50 ml Intake Free Water 120 ml IV Total 348.75 ml 317.50 ml Tube Feeding 660 ml 600 ml Blood Product 250 ml Other 200 ml 120 ml Output Urine Total 720 ml 505 ml # Bowel Movements 1 2 Dressing: saturated Wound: other Drains: other Cardiovascular: RSR Respiratory: decreased breath sounds Abdomen: soft, present bowel sounds, non-distended Extremities: no cyanosis, other Laboratory Tests Test 04/01/19 04:40 White Blood Count 8.6 K/UL (4.8-10.8) Red Blood Count 2.85 M/UL (4.70-6.10) L Hemoglobin 8.1 G/DL (14.2-18.0) L Hematocrit 25.4 % (42.0-52.0) L Mean Corpuscular Volume 89 FL (80-99) Mean Corpuscular Hemoglobin 28.5 PG (27.0-31.0) Mean Corpuscular Hemoglobin Concent 32.0 G/DL (32.0-36.0) Red Cell Distribution Width 16.0 % (11.6-14.8) H Platelet Count 157 K/UL (150-450) Mean Platelet Volume 5.3 FL (6.5-10.1) L Neutrophils (%) (Auto) 69.4 % (45.0-75.0) Lymphocytes (%) (Auto) 23.8 % (20.0-45.0) Monocytes (%) (Auto) 5.4 % (1.0-10.0) Eosinophils (%) (Auto) 0.9 % (0.0-3.0) Basophils (%) (Auto) 0.5 % (0.0-2.0) Plan Problems: (1) Respiratory distress (2) Decubitus skin ulcer Assessment & Plan: Pt presented on admission with multiple pressure injuries and ulcerations 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 Base of wound has mixed slough and necrosis. Edges adherent and dark . Periwound indurated with darker skin tone. Pt complained of pain when minimally palpated. Mild odor noted Full thickness ulcer R tibia. Base of wound has slough. Edges adherent and flat ,Periwound without erythema or fluctuance. Stable dry eschar noted to R hallux. edges are dark but adherent to base of wound. Periwound dark without erythema or fluctuance Stable dry eschar noted to R st metatarsal head. Periwound pale without fluctuance Stable dry eschar noted to dorsal aspects of R 3rd and 4th metatarsals. Full thickness ulcer lateral R 5th metatarsal. base of wound with some areas of necrosis and edges are black . No odor or exudate noted Stable dry eschar R heel . Periwound fluctuant without erythema. Pt complained of pain when minimally palpated. Stable dry eschar noted to dorso/flexor L foot. Periwound without erythema , induration or fluctuance Reabsorbing blood blister noted to medial L foot. Periwound without erythema or fluctuance L heel is dry and blanchable with historical scarring from previous wounds .Dry flaky skin noted to both feet. Tx.Plan: Cleanse sacral wound with Dakin's 0.125% stefani. Loose pack wound with Dakin's moist Kerlix. Apply Moisture Barrier paste to borders and cover with Optifoam drsg. Twice daily and prn. Cleanse Wound R tibia with Saline. Apply Therahoney. Cover with Optifoam drsg. Change every 3 days and prn.Apply Cavilon Skin BArrier to both heels. Cover each heel with Optifoam drsg. change every 7 days and prn APM/PHIL mattress overlay. Reposition at least every 2hours or as tolerated. Off-load heels with pillow. (3) Severe sepsis Assessment & Plan: leukocytosis resolved anemia lactic acidosis resolved improving septic MRSA bacteremia labs noted imaging noted Cont IV abx as per ID feeds wounds evaluated and care plan as above labs noted f/u cxr will follow with recs thank you DAILY ESTIMATED NEEDS: Needs based on Wound, critical care 78.6kg 25-30 kcals/kg 8987-4287 total kcals 1.25-2 g protein/kg 98-157 g total protein Fluid per MD, on lasix NUTRITION DIAGNOSIS: 1) Increased kcal/ pro needs r/t wound healing as evidenced by full thickness sacral wound, pending updated eval. 2) Swallowing difficulty r/t respiratory status as evidenced by s/p RR, pt now orally intubated, on pressor support. CURRENT DIET: Regular-> pt now intubated ENTERAL NUTRITION RECOMMENDATIONS: Osmolite 1.5 @55ml/hr x24 hrs + Prosource BID to provide 1320ml, 1980 kcal, 83g + 22g pro, 1006ml free H2O - WHEN HEMODYNAMICALLY STABLE, rec to obtain GI access, initiate non oral feeds to meed est nutritional needs - Start Osmolite 1.5 @25ml/hr for 6 hrs, advance as tolerated 10ml/hr q4-6 hrs to goal. - Flush per MD/ HOB over 30 degrees ADDITIONAL RECOMMENDATIONS: 1) Obtain a CALIBRATED bed wt 2) Feed w/ hemodynamic stability -> currently on pressors x2 3) WOUND CARE: Add BRUCE BID w/ GI access Add VIT C 250mg BID Add ZnSO4 220mg daily x10 days 4) On lasix, monitor lytes daily 5) EVALUATION ANALYST eval upon extubation (4) Dyspnea (5) Hypoxia Tawanda Alfaro Apr 01, 2019 12:43
[2019-04-01] MEDS ORDERED: DOPamine 400mg/250ml 250 ML IV SCH (12:45)
[2019-04-01] MEDS: fentaNYL Citrate 1000 MCG in NS 100ml IV SCH (14:45)
--- NOTE | 2019-04-01 15:00 | NUR ---
NURSE NOTES: Dr. Mims at bedside. discussed code status with family. And Family want's to retain Full code status.
--- NOTE | 2019-04-01 15:30 | NUR ---
NURSE NOTES: Patient's family at bedside. Patient's and daughter. PICC placement consent obtained from daughter.
[2019-04-01] MEDS ORDERED: D5NS 1000ml IV ONE ×2 (16:14→17:34)
[2019-04-01] MEDS ORDERED: Tubing IV Secondary IV ONE (16:14)
[2019-04-01] MEDS: D5W IV SCH (16:33)
[2019-04-01] MEDS: NOREPINEPHRINE BITARTRATE IV SCH (16:33)
--- NOTE | 2019-04-01 16:35 | NUR ---
NURSE NOTES: Called Dr Vargas regarding Dopamine. Patient didn't tolerate the Dopa, MD was notified. MD had dc'd the Levo. Per MD order, restart Levo and titrate for SBP >90 MAP 65. Pt was restarted on Levophed at 6 mcgs. Dopamine was DCd. Orders were entered. Pts initial BP was 71/35. Pt immediately responded. Addendum: 04/01/19 at 1726 by TYLER AMOS RN Will con't to monitor. Primary RN also at bedside. Spoke to Robert Will to notify regarding restart of Levophed. Suman is aware that it was urgently restarted at 1600. Also documented in the comment section when scanned that it was started at 1600 despite being scanned at 1635.
[2019-04-01] MEDS: Xarelto 10mg tab NG SCH (16:37)
[2019-04-01] MEDS ORDERED: Tubing IV Blood Pump IV ONE (17:34)
[2019-04-01] MEDS ORDERED: NS 275ml ONE (17:34)
--- NOTE | 2019-04-01 18:02 | NUR ---
RESPIRATORY NOTE: Received pt on AC 16 VT 600 FIO2 35% PEEP 5 owith 7.5 ETT tube at the 24 at the lip. Patient is awake and alert. Patient was weaned on CPAP PS 8. Patient tolerated an hour and twenty minutes. Patient was in a bit of distress. Patient RSBI increased to 120's. RN was made aware. Patient NIF was -17 at best. Heart rate increased to 130 from 80's. Patient was switched to AC. Patient was in no distress. Will continue to monitor. Alarms are on and audible and ambu bag at bedside.
--- NOTE | 2019-04-01 19:10 | NUR ---
HAND-OFF: Report given to Pj Manning RN.
--- NOTE | 2019-04-01 19:30 | NUR ---
NURSE NOTES: Received pt in no acute distress. Awake, alert, orally intubated. Follow commands, opens eyes spontaneously. Noted vent settings of AC 16 TV600 fiO2 .35 peep5, saturating 97-99%. Secretions copious, white; chest with scattered rhonchi. afebrile, NSR Bp stable. Right femoral TLC intact, Levophed gtt infuses at 3mcg/min. OGT in place; TF with Osmolyte 1.5 continues at 60ml/h with 0 residuals. No BM at this time; denies pain.Wound dressings dry and intact. FC patent, UOp 40-60ml/h. Bilat soft wrist restraints maintained. Will continue to monitor BP, HR and titrate Levophed gtt to off if able.
--- NOTE | 2019-04-01 20:27 | NUR ---
RESPIRATORY NOTE: Received pt. on 840 vent. Vent settings are: A/C rate of 16, Vt 600, FI02 35%, PEEP +5. No respiratory distress noted, pt. sP02 @ 100%. Ambu bag @ BS. Vent plugged on red outlet. Will continue to monitor pt.
[2019-04-01] MEDS: Dyna-Hex 2% Top Sol 2oz TOPIC SCH (21:00)
[2019-04-01] MEDS: Dakin's 0.125% Soln (Quarter Strength) 16oz TOPIC SCH (21:01)
--- NOTE | 2019-04-01 21:18 | Pulmonolgy Critical Care Note ---
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 (11) Hypothyroidism Respiratory: CXR, weaning trial Cardiac: continue pressors Renal: F/U I&O, keep IV fluid Gastrointestinal: continue feedings/current rate Endocrine: monitor blood sugar, check TSH Neurologic: PRN Ativan, PRN Morphine Prophylaxis: Heparin Disposition: keep in ICU Time Spent (Minutes): 50 Notes Reviewed: extracorporeal technician, renal Discussed with: nurses Critical Care - Objective Last 24 Hour Vital Signs Date Time Temp Pulse Resp B/P (MAP) Pulse Ox O2 Delivery O2 Flow Rate FiO2 04/01/19 19:10 109 22 35 04/01/19 19:00 58 14 117/41 (66) 100 04/01/19 19:00 117/41 04/01/19 18:45 64 13 118/40 (66) 100 04/01/19 18:30 99 11 108/45 (66) 100 04/01/19 18:15 115 19 138/71 (93) 100 04/01/19 18:00 77 11 107/44 (65) 100 04/01/19 18:00 138/71 04/01/19 17:48 79 12 119/41 (67) 100 04/01/19 17:45 71 12 162/96 (118) 100 04/01/19 17:30 63 2 110/41 (64) 100 04/01/19 17:20 95 20 35 04/01/19 17:15 94 21 133/81 (98) 100 04/01/19 17:00 133/81 04/01/19 17:00 107 27 125/68 (87) 100 04/01/19 16:56 106 28 135/87 (103) 100 04/01/19 16:45 107 30 145/84 (104) 100 04/01/19 16:39 100 23 137/88 (104) 100 04/01/19 16:33 71/35 04/01/19 16:30 103 26 121/100 (107) 100 04/01/19 16:15 88 25 128/47 (74) 100 04/01/19 16:00 87 23 124/57 (79) 100 04/01/19 16:00 35 04/01/19 16:00 Mechanical Ventilator 04/01/19 15:57 82 13 72/57 (62) 100 04/01/19 15:55 78 15 71/35 (47) 100 04/01/19 15:49 92 24 72/45 (54) 100 04/01/19 15:45 70 0 79/38 (52) 100 04/01/19 15:38 114 20 110/72 (85) 99 04/01/19 15:35 99 0 99/66 (77) 100 04/01/19 15:33 92 12 84/32 (49) 100 04/01/19 15:30 100 10 76/39 (51) 100 04/01/19 15:27 87 16 35 04/01/19 15:27 92 04/01/19 15:24 101 11 90/55 (67) 100 04/01/19 15:17 119 18 85/50 (62) 100 04/01/19 15:00 75 13 117/37 (63) 100 04/01/19 14:45 65 10 123/48 (73) 100 04/01/19 14:30 59 7 132/55 (80) 100 04/01/19 14:21 57 16 132/44 (73) 100 04/01/19 14:15 56 4 122/55 (77) 100 04/01/19 14:13 55 12 118/47 (70) 100 04/01/19 14:09 59 15 111/46 (67) 100 04/01/19 14:00 60 12 112/42 (65) 100 04/01/19 13:52 113/44 04/01/19 13:45 64 17 113/44 (67) 100 04/01/19 13:30 55 91/41 (58) 100 04/01/19 13:29 53 16 35 04/01/19 13:15 61 12 112/38 (62) 100 04/01/19 13:00 52 13 101/39 (59) 100 04/01/19 12:45 69 14 106/79 (88) 100 04/01/19 12:30 58 4 95/44 (61) 100 04/01/19 12:15 57 90/36 (54) 100 04/01/19 12:00 Mechanical Ventilator 04/01/19 12:00 96.8 62 22 103/36 (58) 100 04/01/19 11:53 92 21 35 04/01/19 11:52 91 22 110/83 (92) 100 04/01/19 11:45 97 21 89/52 (64) 100 04/01/19 11:30 96 23 107/46 (66) 100 04/01/19 11:18 72 04/01/19 11:15 74 20 92/43 (59) 100 04/01/19 11:07 94 17 126/66 (86) 100 04/01/19 11:00 56 8 84/57 (66) 100 04/01/19 10:45 60 17 101/37 (58) 100 04/01/19 10:30 62 20 107/50 (69) 100 04/01/19 10:15 100 23 115/65 (82) 100 04/01/19 10:01 85 16 92/42 (59) 100 04/01/19 10:00 97 17 82/44 (57) 100 04/01/19 09:45 59 12 92/38 (56) 100 04/01/19 09:32 111 15 99/66 (77) 100 04/01/19 09:31 100 04/01/19 09:30 35 04/01/19 09:30 100 16 82/53 (63) 100 04/01/19 09:29 35 04/01/19 09:15 117 28 97/69 (78) 100 04/01/19 09:00 116 26 94/61 (72) 100 04/01/19 08:56 35 04/01/19 08:49 60 15 35 35 04/01/19 08:45 103 14 127/57 (80) 04/01/19 08:30 53 16 99/45 (63) 100 04/01/19 08:15 96.8 61 17 120/49 (72) 100 04/01/19 08:06 122/55 04/01/19 08:00 51 14 122/55 (77) 100 04/01/19 08:00 Mechanical Ventilator 04/01/19 08:00 35 04/01/19 07:45 55 16 116/55 (75) 100 04/01/19 07:45 63 16 35 04/01/19 07:37 54 04/01/19 07:30 54 15 119/48 (71) 100 04/01/19 07:15 56 16 138/87 (104) 100 04/01/19 07:00 58 16 124/58 (80) 100 04/01/19 06:00 55 17 111/56 (74) 100 04/01/19 05:00 111/44 04/01/19 05:00 97.5 76 16 111/44 (66) 100 04/01/19 04:50 57 16 35 04/01/19 04:00 Mechanical Ventilator 04/01/19 04:00 62 17 118/62 (80) 100 04/01/19 04:00 35 04/01/19 03:39 54 04/01/19 03:20 57 17 35 04/01/19 03:00 56 11 112/43 (66) 100 04/01/19 03:00 124/82 04/01/19 02:00 142/64 04/01/19 02:00 55 14 121/46 (71) 100 04/01/19 02:00 55 14 121/46 (71) 100 04/01/19 01:45 65 111/55 04/01/19 01:09 61 17 35 04/01/19 01:00 56 14 120/47 (71) 100 04/01/19 01:00 140/63 04/01/19 00:00 Mechanical Ventilator 04/01/19 00:00 65 16 107/51 (69) 100 03/31/19 23:09 56 03/31/19 23:00 57 16 131/51 (77) 100 03/31/19 23:00 126/60 03/31/19 22:50 119 16 35 03/31/19 22:05 132/56 03/31/19 22:00 59 16 139/61 (87) 100 03/31/19 21:30 111 23 35 Status: awake Condition: critical Lungs: rhonchi Heart: HR/BP unstable Abdomen: soft, non-tender Extremities: edema Decubiti: location Critical Care - Subjective ROS Limited/Unobtainable: Yes Condition: critical FI02: 35 Vent Support Breath Rate: 16 Vent Support Mode: AC Vent Tidal Volume: 600 Sputum Amount: Moderate PEEP: 5.0 PIP: 37 Tube Feeding Amount: 60 I&O: Intake and Output 03/31/19 04/01/19 19:00 07:00 Intake Total 1502.50 ml 1086.25 ml Output Total 740 ml 505 ml Balance 762.50 ml 581.25 ml Intake Free Water 120 ml IV Total 332.50 ml 306.25 ml Tube Feeding 720 ml 540 ml Blood Product 250 ml Other 200 ml 120 ml Output Urine Total 740 ml 505 ml # Bowel Movements 1 2 Subjective: ON THE VENT NO DISTRESS NO BLEDIGN SECRETIONS NOTED TOLERATING TF NO FEVER ON ABX REAMINS ON PRESSORS AT THIS TIME ET-Tube: 7.5 ET Position: 24 Labs: Current Medications Medications (Trade) Dose Ordered Sig/Vaughn Route PRN Reason Start Time Stop Time Status Last Admin Dose Admin Acetaminophen (Tylenol) 650 mg Q4H PRN NG Mild Pain/Temp > 100.5 03/30/19 18:42 04/29/19 18:41 Ascorbic Acid (Vitamin C) 250 mg EVERY 12 HOURS NG 03/31/19 21:00 04/26/19 17:59 04/01/19 21:00 Chlorhexidine Gluconate (Michelle-Hex 2%) 1 applic DAILY@1999 TOPIC 03/27/19 20:00 04/26/19 19:59 04/01/19 21:00 Chlorhexidine Gluconate (Michelle-Hex 2%) 1 applic DAILY@1999 TOPIC 04/03/19 20:00 05/03/19 19:59 Fentanyl Citrate 1000 mcg/Sodium Chloride 100 ml @ 0 mls/hr Q24H IV 03/28/19 14:45 04/04/19 14:44 03/28/19 20:47 Heparin Sodium/ Sodium Chloride (Heparin 1000 units/500ml Premix) 1,000 unit ONCE IV 04/03/19 09:00 04/03/19 23:00 Levothyroxine Sodium (Synthroid) 100 mcg DAILY@0630 NG 03/31/19 06:30 04/30/19 06:29 04/01/19 05:50 Lidocaine HCl (Xylocaine 1% 30ml) 30 ml ONCE INJ 04/03/19 09:00 04/03/19 23:00 Midazolam HCl (Versed 2mg/2ml vial) 1 mg Q2H PRN IVP For Anxiety 03/28/19 14:45 04/27/19 14:44 Midodrine (Pro-Amatine) 5 mg EVERY 8 HOURS NG 03/31/19 14:30 04/27/19 17:59 04/01/19 13:14 Norepinephrine Bitartrate 8 mg/ Dextrose 500 ml @ 0 mls/hr Q24H IV 04/01/19 16:30 05/01/19 16:29 04/01/19 16:33 Pantoprazole (Protonix) 40 mg DAILY IVP 03/27/19 09:00 04/26/19 08:59 04/01/19 08:06 Piperacillin Sod/ Tazobactam Sod 3.375 gm/Sodium Chloride 110 ml @ 27.5 mls/hr EVERY 8 HOURS IVPB 03/26/19 22:00 04/04/19 21:59 04/01/19 13:15 Rivaroxaban (Xarelto) 20 mg QPM NG 03/31/19 16:30 04/29/19 16:29 04/01/19 16:37 Sodium Hypochlorite (Dakin's Quarter Strength) 1 applic EVERY 12 HOURS TOPIC 04/01/19 21:00 04/27/19 00:00 04/01/19 21:01 Vancomycin HCl (Vanco rx to dose) 1 ea DAILY PRN MISC Per rx protocol 03/27/19 16:00 04/26/19 15:59 Vancomycin HCl 1 gm/Dextrose 275 ml @ 183.708 mls/hr Q24H IVPB 04/01/19 23:00 04/06/19 22:59 Zinc Sulfate (Zinc Sulfate) 220 mg DAILY NG 03/31/19 09:00 04/27/19 08:59 04/01/19 08:06 Laboratory Tests Test 04/01/19 04:40 04/01/19 15:15 White Blood Count 8.6 K/UL (4.8-10.8) Red Blood Count 2.85 M/UL (4.70-6.10) L Hemoglobin 8.1 G/DL (14.2-18.0) L Hematocrit 25.4 % (42.0-52.0) L Mean Corpuscular Volume 89 FL (80-99) Mean Corpuscular Hemoglobin 28.5 PG (27.0-31.0) Mean Corpuscular Hemoglobin Concent 32.0 G/DL (32.0-36.0) Red Cell Distribution Width 16.0 % (11.6-14.8) H Platelet Count 157 K/UL (150-450) Mean Platelet Volume 5.3 FL (6.5-10.1) L Neutrophils (%) (Auto) 69.4 % (45.0-75.0) Lymphocytes (%) (Auto) 23.8 % (20.0-45.0) Monocytes (%) (Auto) 5.4 % (1.0-10.0) Eosinophils (%) (Auto) 0.9 % (0.0-3.0) Basophils (%) (Auto) 0.5 % (0.0-2.0) Vancomycin Level Trough 21.1 ug/mL (5.0-12.0) H Bibiana Servin DO Apr 01, 2019 21:18
--- NOTE | 2019-04-01 22:00 | NUR ---
NURSE NOTES: Weekly wound assessment including measurements and photos done. No change in the status of the wound. No odor, with mild serous drainage. Wound bed clean, reddish pink with occasional yellow and whitish tissues around the border. Dakins 0.125% applied to the wound. Pt cooperative and was calm during the wound assessment/dressing changes.
[2019-04-01] MEDS: Vancomycin 1gm/D5W 275ml IVPB SCH ×2 (22:48)
[2019-04-02] VITALS (30 sets, daily range): BP systolic 94–163; BP diastolic 39–98
--- NOTE | 2019-04-02 | NUR ---
NURSE NOTES:Converted back to afib with RVR; BP stable, afebrile. Had 1 large diarrhea. Right femoral central line dressing changed. Pt asleep with HOB elevated. No distress otherwise, Will continue to monitor
--- NOTE | 2019-04-02 02:00 | NUR ---
NURSE NOTES: Sleeping with HOB elevated. Afib on the monitor; BP stable. Tolerating TF; 0 residuals. No further diarrhea.
--- NOTE | 2019-04-02 04:00 | NUR ---
NURSE NOTES: Secretions copious. Oral care and suctioning done. Bed bath given. Wound dressings dry and intact. Off Levophed gtt; Bp stable but continues to be on Afib. Afebrile. Will continue to monitor
--- NOTE | 2019-04-02 05:00 | Progress Note ---
DATE: 04/01/2019 NOTE: VERY POOR AUDIO SUBJECTIVE: This is an elderly male in ICU. He failed weaning protocol. The patient is presently on assist control. He is sleeping, but he is arousable. He by and daughter. The patient is currently back on . His blood pressure is controlled on drip. OBJECTIVE: VITAL SIGNS: His blood pressure seems to be 145/70, pulse, , respirations 18 to 24. Temperature, there is no fever. HEENT: . CHEST: Bilaterally few crackles and wheezing. CARDIAC: Regular rhythm. . ABDOMEN: Soft. G-tube in place. EXTREMITIES: Has 1+ edema. LABORATORY DATA: His laboratories are improving. BUN and creatinine . ASSESSMENT: 1. Acute respiratory failure. 2. Aspiration pneumonia. 3. CHF. 4. . 5. Acute renal injury. 6. Dementia. 7. Anemia. PLAN: We discussed with family that . We will currently continue IV antibiotic, continue bronchodilator treatment, continue NG tube feeding, DVT prophylaxis. Also continue wound care. Elevation of both upper extremity and lower extremity and repeat the laboratories. Continue weaning protocols. I discussed with the family done at that time, nothing to be done at this point. Discussed with the charge nurse. Pedrito Mims M.D. DR: АННА JOB#: [id number] CC:
[2019-04-02] MEDS: Piperacillin/Tazobactam 3.375 GM in NS 110 ML IVPB SCH ×3 (05:27→21:54)
--- NOTE | 2019-04-02 07:11 | NUR ---
HAND-OFF: Report given to Raeann Vega RN.NURSE NOTES:
--- NOTE | 2019-04-02 07:12 | NUR ---
NURSE NOTES: Received patient in bed. ET in place, vent dependent. With Right nare NGT. Jose cath noted. Right femoral triple lumen cath noted. Contact isolation observed. Bilateral soft wrist restraints noted. Patient is asleep, easy to arouse. Denies pain when asked. No respiratory distress at this time. Will continue plan of care.
[2019-04-02 07:24] LABS: HEMATOCRIT 23.5 % (42.0-52.0); HEMOGLOBIN 7.6 G/DL (14.2-18.0); MEAN CORPUSCULAR VOLUME 89 FL (80-99); PLATELET COUNT 179 K/UL (150-450); RED BLOOD COUNT 2.63 M/UL (4.70-6.10); RED CELL DISTRIBUTION WIDTH 15.5 % (11.6-14.8); WHITE BLOOD COUNT 12.2 K/UL (4.8-10.8)
[2019-04-02] MEDS: Dakin's 0.125% Soln (Quarter Strength) 16oz TOPIC SCH ×2 (08:07→20:46)
[2019-04-02] MEDS: Ascorbic Acid 500mg tab NG SCH ×2 (08:07→20:46)
[2019-04-02] MEDS: Zinc Sulfate 220mg cap NG SCH (08:07)
[2019-04-02] MEDS: Pantoprazole Inj IVP SCH (08:07)
[2019-04-02 08:21] LABS: ANION GAP 7 mmol/L (5-15); BLOOD UREA NITROGEN 13 mg/dL (7-18); CALCIUM 7.9 MG/DL (8.5-10.1); CARBON DIOXIDE 24 MMOL/L (21-32); CHLORIDE 107 MMOL/L (98-107); POTASSIUM 3.3 MMOL/L (3.5-5.1); SODIUM 138 MMOL/L (136-145)
--- NOTE | 2019-04-02 09:55 | Diagnostic Imaging Report ---
EXAM: XR Chest, 1 View CLINICAL HISTORY: [facility] [place]: Frontal view of the chest. COMPARISON: Chest x-ray, 03/28/19 CT chest 03/29/19 FINDINGS: Lungs: Mild interstitial prominence. Previously seen right upper lobe airspace opacities have resolved. Mild bibasilar lung atelectasis. Pleural space: Unremarkable. No pneumothorax. Heart: Unremarkable. No cardiomegaly. Mediastinum: Unremarkable. Bones/joints: Unremarkable. Tubes, lines and devices: NG tube traverses the diaphragm, tip is not seen. Difficult to identify ET tube. IMPRESSION: Mild interstitial prominence. Previously seen right upper lobe airspace opacities have resolved. Mild bibasilar lung atelectasis.
--- NOTE | 2019-04-02 10:22 | NUR ---
NURSE NOTES: Informed Dr. Chaney regarding patient's Potassium level of 3.3 and mag level of 1.6. Dr. Chaney said that he will check the chart first.
--- NOTE | 2019-04-02 11:06 | Infectious Diseases Prog Note ---
Assessment/Plan Assessment/Plan A; Recurrent MRSA sepsis Pneumonia L1-L2 discitis/osteomyelitis Psoas abscess Acute respiratory failure Anemia Gastritis Stage 4 sacral ulcer P; Continue Vancomycin Needs retirement Vancomycin Will have PICC line placement Will f/u cultures Subjective ROS Limited/Unobtainable: Yes Constitutional: Denies: fever Respiratory: Reports: other - failed weaning Allergies: Coded Allergies: No Known Allergies (Unverified , 01/18/19) Objective Vital Signs Last 24 Hour Vital Signs Date Time Temp Pulse Resp B/P (MAP) Pulse Ox O2 Delivery O2 Flow Rate FiO2 04/02/19 09:00 68 19 114/64 (81) 100 04/02/19 08:30 94 23 35 04/02/19 08:00 85 04/02/19 08:00 Mechanical Ventilator 04/02/19 08:00 35 04/02/19 08:00 96.7 107 21 112/62 (79) 100 04/02/19 07:29 61 16 35 04/02/19 07:00 107 18 117/63 (81) 100 04/02/19 06:00 110 18 111/56 (74) 100 04/02/19 05:30 98 19 100/42 (61) 100 04/02/19 05:21 85 19 35 04/02/19 05:00 105 20 105/66 (79) 100 04/02/19 04:30 113 18 100/70 (80) 100 04/02/19 04:00 116 04/02/19 04:00 98.7 108 22 94/67 (76) 100 04/02/19 04:00 97/64 04/02/19 04:00 35 04/02/19 04:00 Mechanical Ventilator 04/02/19 03:42 105 21 35 04/02/19 03:30 112 29 142/71 (94) 100 04/02/19 03:00 101/67 04/02/19 03:00 119 26 101/67 (78) 100 04/02/19 02:30 122 26 102/70 (81) 99 04/02/19 02:00 132 26 113/84 (94) 99 04/02/19 02:00 113/84 04/02/19 01:30 124 25 102/68 (79) 94 04/02/19 01:20 109 22 35 04/02/19 01:16 142/70 04/02/19 01:00 126 24 142/70 (94) 94 04/02/19 00:30 116 21 123/98 (106) 100 04/02/19 00:00 35 04/02/19 00:00 113 04/02/19 00:00 125/78 04/02/19 00:00 Mechanical Ventilator 04/02/19 00:00 98.8 116 23 125/78 (94) 100 04/01/19 23:30 131 33 124/75 (91) 97 04/01/19 23:25 149 21 35 04/01/19 23:00 117 31 118/67 (84) 100 04/01/19 23:00 132/87 04/01/19 22:30 97 17 106/46 (66) 91 04/01/19 22:00 119/83 04/01/19 22:00 116 31 119/83 (95) 100 04/01/19 21:30 91 23 126/72 (90) 100 04/01/19 21:18 102 16 35 04/01/19 21:00 115 22 113/60 (77) 100 04/01/19 21:00 113/60 04/01/19 20:45 96 21 123/78 (93) 100 04/01/19 20:30 100 18 126/67 (86) 100 04/01/19 20:15 91 12 114/64 (81) 100 04/01/19 20:00 35 04/01/19 20:00 58 04/01/19 20:00 125/63 04/01/19 20:00 78 7 125/63 (83) 100 04/01/19 20:00 Mechanical Ventilator 04/01/19 19:45 77 12 112/66 (81) 100 04/01/19 19:30 98.5 59 16 124/50 (74) 100 04/01/19 19:15 58 15 122/42 (68) 100 04/01/19 19:10 109 22 35 04/01/19 19:00 58 14 117/41 (66) 100 04/01/19 19:00 117/41 04/01/19 18:45 64 13 118/40 (66) 100 04/01/19 18:30 99 11 108/45 (66) 100 04/01/19 18:15 115 19 138/71 (93) 100 04/01/19 18:00 77 11 107/44 (65) 100 04/01/19 18:00 138/71 04/01/19 17:48 79 12 119/41 (67) 100 04/01/19 17:45 71 12 162/96 (118) 100 04/01/19 17:30 63 2 110/41 (64) 100 04/01/19 17:20 95 20 35 04/01/19 17:15 94 21 133/81 (98) 100 04/01/19 17:00 133/81 04/01/19 17:00 107 27 125/68 (87) 100 04/01/19 16:56 106 28 135/87 (103) 100 04/01/19 16:45 107 30 145/84 (104) 100 04/01/19 16:39 100 23 137/88 (104) 100 04/01/19 16:33 71/35 04/01/19 16:30 103 26 121/100 (107) 100 04/01/19 16:15 88 25 128/47 (74) 100 04/01/19 16:00 87 23 124/57 (79) 100 04/01/19 16:00 35 04/01/19 16:00 Mechanical Ventilator 04/01/19 15:57 82 13 72/57 (62) 100 04/01/19 15:55 78 15 71/35 (47) 100 04/01/19 15:49 92 24 72/45 (54) 100 04/01/19 15:45 70 0 79/38 (52) 100 04/01/19 15:38 114 20 110/72 (85) 99 04/01/19 15:35 99 0 99/66 (77) 100 04/01/19 15:33 92 12 84/32 (49) 100 04/01/19 15:30 100 10 76/39 (51) 100 04/01/19 15:27 87 16 35 04/01/19 15:27 92 04/01/19 15:24 101 11 90/55 (67) 100 04/01/19 15:17 119 18 85/50 (62) 100 04/01/19 15:00 75 13 117/37 (63) 100 04/01/19 14:45 65 10 123/48 (73) 100 04/01/19 14:30 59 7 132/55 (80) 100 04/01/19 14:21 57 16 132/44 (73) 100 04/01/19 14:15 56 4 122/55 (77) 100 04/01/19 14:13 55 12 118/47 (70) 100 04/01/19 14:09 59 15 111/46 (67) 100 04/01/19 14:00 60 12 112/42 (65) 100 04/01/19 13:52 113/44 04/01/19 13:45 64 17 113/44 (67) 100 04/01/19 13:30 55 91/41 (58) 100 04/01/19 13:29 53 16 35 04/01/19 13:15 61 12 112/38 (62) 100 04/01/19 13:00 52 13 101/39 (59) 100 04/01/19 12:45 69 14 106/79 (88) 100 04/01/19 12:30 58 4 95/44 (61) 100 04/01/19 12:15 57 90/36 (54) 100 04/01/19 12:00 Mechanical Ventilator 04/01/19 12:00 96.8 62 22 103/36 (58) 100 04/01/19 11:53 92 21 35 04/01/19 11:52 91 22 110/83 (92) 100 04/01/19 11:45 97 21 89/52 (64) 100 04/01/19 11:30 96 23 107/46 (66) 100 04/01/19 11:18 72 04/01/19 11:15 74 20 92/43 (59) 100 04/01/19 11:07 94 17 126/66 (86) 100 Height (Feet): 6 Height (Inches): 6.00 Weight (Pounds): 180 HEENT: mucous membranes moist, other - orally intubated Respiratory/Chest: lungs clear, other - on Ventilator Cardiovascular: normal rate, other - R femoral line Abdomen: soft, non tender, other - Orogastric tube feeding Extremities: other - edema of arms Skin: ulcers Neurologic/Psychiatric: other - awake Laboratory Tests Test 04/01/19 15:15 04/02/19 06:30 Vancomycin Level Trough 21.1 ug/mL (5.0-12.0) H White Blood Count 12.2 K/UL (4.8-10.8) H Red Blood Count 2.63 M/UL (4.70-6.10) L Hemoglobin 7.6 G/DL (14.2-18.0) L Hematocrit 23.5 % (42.0-52.0) L Mean Corpuscular Volume 89 FL (80-99) Mean Corpuscular Hemoglobin 28.8 PG (27.0-31.0) Mean Corpuscular Hemoglobin Concent 32.2 G/DL (32.0-36.0) Red Cell Distribution Width 15.5 % (11.6-14.8) H Platelet Count 179 K/UL (150-450) Mean Platelet Volume 5.1 FL (6.5-10.1) L Neutrophils (%) (Auto) % (45.0-75.0) Lymphocytes (%) (Auto) % (20.0-45.0) Monocytes (%) (Auto) % (1.0-10.0) Eosinophils (%) (Auto) % (0.0-3.0) Basophils (%) (Auto) % (0.0-2.0) Differential Total Cells Counted 100 Neutrophils % (Manual) 78 % (45-75) H Lymphocytes % (Manual) 18 % (20-45) L Monocytes % (Manual) 4 % (1-10) Eosinophils % (Manual) 0 % (0-3) Basophils % (Manual) 0 % (0-2) Band Neutrophils 0 % (0-8) Platelet Estimate Adequate Platelet Morphology Normal Anisocytosis 1+ Sodium Level 138 MMOL/L (136-145) Potassium Level 3.3 MMOL/L (3.5-5.1) L Chloride Level 107 MMOL/L (98-107) Carbon Dioxide Level 24 MMOL/L (21-32) Anion Gap 7 mmol/L (5-15) Blood Urea Nitrogen 13 mg/dL (7-18) Creatinine 1.0 MG/DL (0.55-1.30) Estimat Glomerular Filtration Rate mL/min (>60) Glucose Level 174 MG/DL (74-106) H Calcium Level 7.9 MG/DL (8.5-10.1) L Magnesium Level 1.6 MG/DL (1.8-2.4) L Current Medications Medications (Trade) Dose Ordered Sig/Vaughn Route PRN Reason Start Time Stop Time Status Last Admin Dose Admin Acetaminophen (Tylenol) 650 mg Q4H PRN NG Mild Pain/Temp > 100.5 03/30/19 18:42 04/29/19 18:41 Ascorbic Acid (Vitamin C) 250 mg EVERY 12 HOURS NG 03/31/19 21:00 04/26/19 17:59 04/02/19 08:07 Chlorhexidine Gluconate (Michelle-Hex 2%) 1 applic DAILY@1999 TOPIC 03/27/19 20:00 04/26/19 19:59 04/01/19 21:00 Chlorhexidine Gluconate (Michelle-Hex 2%) 1 applic DAILY@1999 TOPIC 04/03/19 20:00 05/03/19 19:59 Fentanyl Citrate 1000 mcg/Sodium Chloride 100 ml @ 0 mls/hr Q24H IV 03/28/19 14:45 04/04/19 14:44 03/28/19 20:47 Heparin Sodium/ Sodium Chloride (Heparin 1000 units/500ml Premix) 1,000 unit ONCE IV 04/03/19 09:00 04/03/19 23:00 Levothyroxine Sodium (Synthroid) 100 mcg DAILY@0630 NG 03/31/19 06:30 04/30/19 06:29 04/02/19 06:19 Lidocaine HCl (Xylocaine 1% 30ml) 30 ml ONCE INJ 04/03/19 09:00 04/03/19 23:00 Midazolam HCl (Versed 2mg/2ml vial) 1 mg Q2H PRN IVP For Anxiety 03/28/19 14:45 04/27/19 14:44 Midodrine (Pro-Amatine) 5 mg EVERY 8 HOURS NG 03/31/19 14:30 04/27/19 17:59 04/02/19 06:19 Norepinephrine Bitartrate 8 mg/ Dextrose 500 ml @ 0 mls/hr Q24H IV 04/01/19 16:30 05/01/19 16:29 04/01/19 16:33 Pantoprazole (Protonix) 40 mg DAILY IVP 03/27/19 09:00 04/26/19 08:59 04/02/19 08:07 Piperacillin Sod/ Tazobactam Sod 3.375 gm/Sodium Chloride 110 ml @ 27.5 mls/hr EVERY 8 HOURS IVPB 03/26/19 22:00 04/04/19 21:59 04/02/19 05:27 Rivaroxaban (Xarelto) 20 mg QPM NG 03/31/19 16:30 04/29/19 16:29 04/01/19 16:37 Sodium Hypochlorite (Dakin's Quarter Strength) 1 applic EVERY 12 HOURS TOPIC 04/01/19 21:00 04/27/19 00:00 04/02/19 08:07 Vancomycin HCl (Vanco rx to dose) 1 ea DAILY PRN MISC Per rx protocol 03/27/19 16:00 04/26/19 15:59 Vancomycin HCl 1 gm/Dextrose 275 ml @ 183.708 mls/hr Q24H IVPB 04/01/19 23:00 04/06/19 22:59 04/01/19 22:48 Zinc Sulfate (Zinc Sulfate) 220 mg DAILY NG 03/31/19 09:00 04/27/19 08:59 04/02/19 08:07 Isaac Martinez MD Apr 02, 2019 11:06
--- NOTE | 2019-04-02 12:38 | Hematology/Onc Progress Note ---
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 Favor scarring, but the possibility of neoplasm cannot be ruled out. 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, r/o mets --> patient is on pressors so hold off on diagnosis until more stable --> at some point will need a tissue diagnosis, as well as further w/u --> given advanced age, hold off on any extensive immediate care --> on xarelto at this time # DVT + Pulmonary embolism history could be related to mass/malignancy * HYPERCOAGULABLE DISORDER* --> on xarelto, okay to dc to snf on this --> Once peg placed, NOW restarted xarelto --> xarelto has been started/okay to continue # Thrombocytopenia likely due to infection --> trend 203-->124-->121-->100k-->121k-->179k --> smear reviewed and no schistocytes noted # Leukocytosis is 2/2 septic shock with uti --> has been started on abx (vanc/zosyn) --> further w/u for altered mental status --> wbc 14-->19.7-->21-->9.6-->9.3 # Iron Overload --> Ferrtin 1327 continue to monitor consider chelation therapy prior to blood tx. --> on iv iron # Renal insufficiency --> as per renal recs # Respiratory failure is on vent --> sbp per pulm # Hypotension on fluids now better --> abx and pressors # DVT ppx --> xarelto okay to continue if plt>75k The timing of this note does not necessarily reflect the time of the patient was seen. GREATLY APPRECIATE CONSULTATION. Subjective Constitutional: Denies: no symptoms, chills, fever, malaise, weakness, other HEENT: Denies: no symptoms, eye pain, blurred vision, tearing, double vision, ear pain, ear discharge, nose pain, nose congestion, throat pain, throat swelling, mouth pain, mouth swelling, other Cardiovascular: Denies: no symptoms, chest pain, edema, irregular heart rate, lightheadedness, palpitations, syncope, other Respiratory: Denies: no symptoms, cough, shortness of breath, SOB with excertion, SOB at rest, sputum, wheezing, other Neurologic/Psychiatric: Denies: no symptoms, anxiety, depressed, emotional problems, headache, numbness, paresthesia, pre-existing deficit, seizure, tingling, tremors, weakness, other Endocrine: Denies: no symptoms, excessive sweating, flushing, intolerance to cold, intolerance to heat, increased hunger, increased thirst, increased urine, unexplained weight gain, unexplained weight loss, other Hematologic/Lymphatic: Denies: no symptoms, anemia, easy bleeding, easy bruising, adenopathy, other Allergies: Coded Allergies: No Known Allergies (Unverified , 01/18/19) Subjective 03/28: labs have been reviewed, hgb is less than 7, hgb 6.5, and prbc that has been ordered 03/29: in icu, on abx, no signs of distress, blood tx completed, labs reviewed 03/30: hgb is better, remains in the icu, on pressors levo, otherwise gtf started 03/31: icu, hgb 6.8, blood tx ordered, on rivaroxaban, vent, ng 04/02: on ng/vent, remains in the icu, recovering well s/p transfu, rivarexaban continued Objective Objective Current Medications Medications (Trade) Dose Ordered Sig/Vaughn Route PRN Reason Start Time Stop Time Status Last Admin Dose Admin Acetaminophen (Tylenol) 650 mg Q4H PRN NG Mild Pain/Temp > 100.5 03/30/19 18:42 04/29/19 18:41 Ascorbic Acid (Vitamin C) 250 mg EVERY 12 HOURS NG 03/31/19 21:00 04/26/19 17:59 04/02/19 08:07 Chlorhexidine Gluconate (Michelle-Hex 2%) 1 applic DAILY@1999 TOPIC 03/27/19 20:00 04/26/19 19:59 04/01/19 21:00 Chlorhexidine Gluconate (Michelle-Hex 2%) 1 applic DAILY@1999 TOPIC 04/03/19 20:00 05/03/19 19:59 Fentanyl Citrate 1000 mcg/Sodium Chloride 100 ml @ 0 mls/hr Q24H IV 03/28/19 14:45 04/04/19 14:44 03/28/19 20:47 Heparin Sodium/ Sodium Chloride (Heparin 1000 units/500ml Premix) 1,000 unit ONCE IV 04/03/19 09:00 04/03/19 23:00 Levothyroxine Sodium (Synthroid) 100 mcg DAILY@0630 NG 03/31/19 06:30 04/30/19 06:29 04/02/19 06:19 Lidocaine HCl (Xylocaine 1% 30ml) 30 ml ONCE INJ 04/03/19 09:00 04/03/19 23:00 Midazolam HCl (Versed 2mg/2ml vial) 1 mg Q2H PRN IVP For Anxiety 03/28/19 14:45 04/27/19 14:44 Midodrine (Pro-Amatine) 5 mg EVERY 8 HOURS NG 03/31/19 14:30 04/27/19 17:59 04/02/19 06:19 Norepinephrine Bitartrate 8 mg/ Dextrose 500 ml @ 0 mls/hr Q24H IV 04/01/19 16:30 05/01/19 16:29 04/01/19 16:33 Pantoprazole (Protonix) 40 mg DAILY IVP 03/27/19 09:00 04/26/19 08:59 04/02/19 08:07 Piperacillin Sod/ Tazobactam Sod 3.375 gm/Sodium Chloride 110 ml @ 27.5 mls/hr EVERY 8 HOURS IVPB 03/26/19 22:00 04/04/19 21:59 04/02/19 05:27 Rivaroxaban (Xarelto) 20 mg QPM NG 03/31/19 16:30 04/29/19 16:29 04/01/19 16:37 Sodium Hypochlorite (Dakin's Quarter Strength) 1 applic EVERY 12 HOURS TOPIC 04/01/19 21:00 04/27/19 00:00 04/02/19 08:07 Vancomycin HCl (Vanco rx to dose) 1 ea DAILY PRN MISC Per rx protocol 03/27/19 16:00 04/26/19 15:59 Vancomycin HCl 1 gm/Dextrose 275 ml @ 183.708 mls/hr Q24H IVPB 04/01/19 23:00 04/06/19 22:59 04/01/19 22:48 Zinc Sulfate (Zinc Sulfate) 220 mg DAILY NG 03/31/19 09:00 04/27/19 08:59 04/02/19 08:07 Last 24 Hour Vital Signs Date Time Temp Pulse Resp B/P (MAP) Pulse Ox O2 Delivery O2 Flow Rate FiO2 04/02/19 12:00 103 16 139/51 (80) 100 04/02/19 11:25 100 24 35 04/02/19 11:00 102 15 110/61 (77) 100 04/02/19 10:04 63 8 106/49 (68) 100 04/02/19 09:00 68 19 114/64 (81) 100 04/02/19 08:30 94 23 35 04/02/19 08:00 85 04/02/19 08:00 Mechanical Ventilator 04/02/19 08:00 35 04/02/19 08:00 96.7 107 21 112/62 (79) 100 04/02/19 07:29 61 16 35 04/02/19 07:00 107 18 117/63 (81) 100 04/02/19 06:00 110 18 111/56 (74) 100 04/02/19 05:30 98 19 100/42 (61) 100 04/02/19 05:21 85 19 35 04/02/19 05:00 105 20 105/66 (79) 100 04/02/19 04:30 113 18 100/70 (80) 100 04/02/19 04:00 116 04/02/19 04:00 98.7 108 22 94/67 (76) 100 04/02/19 04:00 97/64 04/02/19 04:00 35 04/02/19 04:00 Mechanical Ventilator 8/25/19 03:42 105 21 35 04/02/19 03:30 112 29 142/71 (94) 100 04/02/19 03:00 101/67 04/02/19 03:00 119 26 101/67 (78) 100 04/02/19 02:30 122 26 102/70 (81) 99 04/02/19 02:00 132 26 113/84 (94) 99 04/02/19 02:00 113/84 04/02/19 01:30 124 25 102/68 (79) 94 04/02/19 01:20 109 22 35 04/02/19 01:16 142/70 04/02/19 01:00 126 24 142/70 (94) 94 04/02/19 00:30 116 21 123/98 (106) 100 04/02/19 00:00 35 04/02/19 00:00 113 04/02/19 00:00 125/78 04/02/19 00:00 Mechanical Ventilator 04/02/19 00:00 98.8 116 23 125/78 (94) 100 04/01/19 23:30 131 33 124/75 (91) 97 04/01/19 23:25 149 21 35 04/01/19 23:00 117 31 118/67 (84) 100 04/01/19 23:00 132/87 04/01/19 22:30 97 17 106/46 (66) 91 04/01/19 22:00 119/83 04/01/19 22:00 116 31 119/83 (95) 100 04/01/19 21:30 91 23 126/72 (90) 100 04/01/19 21:18 102 16 35 04/01/19 21:00 115 22 113/60 (77) 100 04/01/19 21:00 113/60 04/01/19 20:45 96 21 123/78 (93) 100 04/01/19 20:30 100 18 126/67 (86) 100 04/01/19 20:15 91 12 114/64 (81) 100 04/01/19 20:00 35 04/01/19 20:00 58 04/01/19 20:00 125/63 04/01/19 20:00 78 7 125/63 (83) 100 04/01/19 20:00 Mechanical Ventilator 04/01/19 19:45 77 12 112/66 (81) 100 04/01/19 19:30 98.5 59 16 124/50 (74) 100 04/01/19 19:15 58 15 122/42 (68) 100 04/01/19 19:10 109 22 35 04/01/19 19:00 58 14 117/41 (66) 100 04/01/19 19:00 117/41 04/01/19 18:45 64 13 118/40 (66) 100 04/01/19 18:30 99 11 108/45 (66) 100 04/01/19 18:15 115 19 138/71 (93) 100 04/01/19 18:00 77 11 107/44 (65) 100 04/01/19 18:00 138/71 04/01/19 17:48 79 12 119/41 (67) 100 04/01/19 17:45 71 12 162/96 (118) 100 04/01/19 17:30 63 2 110/41 (64) 100 04/01/19 17:20 95 20 35 04/01/19 17:15 94 21 133/81 (98) 100 04/01/19 17:00 133/81 04/01/19 17:00 107 27 125/68 (87) 100 04/01/19 16:56 106 28 135/87 (103) 100 04/01/19 16:45 107 30 145/84 (104) 100 04/01/19 16:39 100 23 137/88 (104) 100 04/01/19 16:33 71/35 04/01/19 16:30 103 26 121/100 (107) 100 04/01/19 16:15 88 25 128/47 (74) 100 04/01/19 16:00 87 23 124/57 (79) 100 04/01/19 16:00 35 04/01/19 16:00 Mechanical Ventilator 04/01/19 15:57 82 13 72/57 (62) 100 04/01/19 15:55 78 15 71/35 (47) 100 04/01/19 15:49 92 24 72/45 (54) 100 04/01/19 15:45 70 0 79/38 (52) 100 04/01/19 15:38 114 20 110/72 (85) 99 04/01/19 15:35 99 0 99/66 (77) 100 04/01/19 15:33 92 12 84/32 (49) 100 04/01/19 15:30 100 10 76/39 (51) 100 04/01/19 15:27 87 16 35 04/01/19 15:27 92 04/01/19 15:24 101 11 90/55 (67) 100 04/01/19 15:17 119 18 85/50 (62) 100 04/01/19 15:00 75 13 117/37 (63) 100 04/01/19 14:45 65 10 123/48 (73) 100 04/01/19 14:30 59 7 132/55 (80) 100 04/01/19 14:21 57 16 132/44 (73) 100 04/01/19 14:15 56 4 122/55 (77) 100 04/01/19 14:13 55 12 118/47 (70) 100 04/01/19 14:09 59 15 111/46 (67) 100 04/01/19 14:00 60 12 112/42 (65) 100 04/01/19 13:52 113/44 04/01/19 13:45 64 17 113/44 (67) 100 04/01/19 13:30 55 91/41 (58) 100 04/01/19 13:29 53 16 35 04/01/19 13:15 61 12 112/38 (62) 100 04/01/19 13:00 52 13 101/39 (59) 100 04/01/19 12:45 69 14 106/79 (88) 100 04/01/19 12:30 58 4 95/44 (61) 100 04/01/19 12:15 57 90/36 (54) 100 04/01/19 12:00 Mechanical Ventilator 04/01/19 12:00 96.8 62 22 103/36 (58) 100 04/01/19 11:53 92 21 35 04/01/19 11:52 91 22 110/83 (92) 100 04/01/19 11:45 97 21 89/52 (64) 100 04/01/19 11:30 96 23 107/46 (66) 100 04/01/19 11:18 72 04/01/19 11:15 74 20 92/43 (59) 100 04/01/19 11:07 94 17 126/66 (86) 100 04/01/19 11:00 56 8 84/57 (66) 100 04/01/19 10:45 60 17 101/37 (58) 100 04/01/19 10:30 62 20 107/50 (69) 100 04/01/19 10:15 100 23 115/65 (82) 100 04/01/19 10:01 85 16 92/42 (59) 100 04/01/19 10:00 97 17 82/44 (57) 100 04/01/19 09:45 59 12 92/38 (56) 100 04/01/19 09:32 111 15 99/66 (77) 100 04/01/19 09:31 100 04/01/19 09:30 35 04/01/19 09:30 100 16 82/53 (63) 100 04/01/19 09:29 35 04/01/19 09:15 117 28 97/69 (78) 100 04/01/19 09:00 116 26 94/61 (72) 100 04/01/19 08:56 35 04/01/19 08:49 60 15 35 35 04/01/19 08:45 103 14 127/57 (80) 04/01/19 08:30 53 16 99/45 (63) 100 04/01/19 08:15 96.8 61 17 120/49 (72) 100 04/01/19 08:06 122/55 04/01/19 08:00 51 14 122/55 (77) 100 04/01/19 08:00 Mechanical Ventilator 04/01/19 08:00 35 04/01/19 07:45 55 16 116/55 (75) 100 04/01/19 07:45 63 16 35 04/01/19 07:37 54 04/01/19 07:30 54 15 119/48 (71) 100 04/01/19 07:15 56 16 138/87 (104) 100 04/01/19 07:00 58 16 124/58 (80) 100 04/01/19 06:00 55 17 111/56 (74) 100 04/01/19 05:00 111/44 04/01/19 05:00 97.5 76 16 111/44 (66) 100 04/01/19 04:50 57 16 35 04/01/19 04:00 Mechanical Ventilator 8/24/19 04:00 62 17 118/62 (80) 100 04/01/19 04:00 35 04/01/19 03:39 54 04/01/19 03:20 57 17 35 04/01/19 03:00 56 11 112/43 (66) 100 04/01/19 03:00 124/82 04/01/19 02:00 142/64 04/01/19 02:00 55 14 121/46 (71) 100 04/01/19 02:00 55 14 121/46 (71) 100 04/01/19 01:45 65 111/55 04/01/19 01:09 61 17 35 04/01/19 01:00 56 14 120/47 (71) 100 04/01/19 01:00 140/63 04/01/19 00:00 Mechanical Ventilator 04/01/19 00:00 65 16 107/51 (69) 100 03/31/19 23:09 56 03/31/19 23:00 57 16 131/51 (77) 100 03/31/19 23:00 126/60 03/31/19 22:50 119 16 35 03/31/19 22:05 132/56 03/31/19 22:00 59 16 139/61 (87) 100 03/31/19 21:30 111 23 35 03/31/19 21:00 124/50 03/31/19 21:00 97.6 62 16 162/57 (92) 100 03/31/19 20:00 35 03/31/19 20:00 Mechanical Ventilator 03/31/19 20:00 70 12 131/50 (77) 100 03/31/19 20:00 131/50 03/31/19 19:23 58 03/31/19 19:00 81 16 120/50 (73) 100 03/31/19 19:00 120/50 03/31/19 18:50 110 16 100 03/31/19 18:50 109 22 35 03/31/19 18:30 89 6 119/47 (71) 100 03/31/19 18:15 64 14 119/66 (83) 100 03/31/19 18:00 70 11 110/92 (98) 100 03/31/19 18:00 110/92 03/31/19 17:45 66 12 135/73 (93) 100 8/23/19 17:30 60 16 117/55 (75) 100 03/31/19 17:15 65 16 112/52 (72) 100 03/31/19 17:00 82 14 109/53 (71) 100 03/31/19 17:00 109/53 03/31/19 16:45 119 17 127/60 (82) 100 03/31/19 16:32 95 17 35 03/31/19 16:30 91 14 114/48 (70) 100 03/31/19 16:15 132 20 100/69 (79) 100 03/31/19 16:00 Mechanical Ventilator 03/31/19 16:00 105/61 03/31/19 16:00 97.0 78 16 105/61 (76) 100 03/31/19 16:00 35 03/31/19 15:45 88 17 120/53 (75) 100 03/31/19 15:39 108 03/31/19 15:30 74 16 112/51 (71) 100 03/31/19 15:15 107 17 113/59 (77) 100 03/31/19 15:00 106 16 93/56 (68) 100 03/31/19 15:00 93/56 03/31/19 14:45 108 16 101/56 (71) 100 03/31/19 14:43 108 16 35 03/31/19 14:40 35 03/31/19 14:30 59 16 121/53 (75) 100 03/31/19 14:15 69 16 128/65 (86) 100 03/31/19 14:00 59 16 117/62 (80) 100 03/31/19 14:00 117/62 03/31/19 13:45 63 16 120/57 (78) 100 03/31/19 13:42 96.9 68 16 138/57 (84) 100 03/31/19 13:30 62 17 122/68 (86) 100 03/31/19 13:27 79 16 40 03/31/19 13:15 84 16 109/70 (83) 100 03/31/19 13:00 127/54 03/31/19 13:00 66 16 127/54 (78) 100 03/31/19 12:45 60 16 117/51 (73) 100 Intake and Output 04/01/19 04/02/19 19:00 07:00 Intake Total 1055.12 ml 1315.000 ml Output Total 700 ml 660 ml Balance 355.12 ml 655.000 ml IV Total 275.12 ml 475.000 ml Tube Feeding 720 ml 720 ml Other 60 ml 120 ml Output Urine Total 700 ml 660 ml # Bowel Movements 2 2 Labs Test 03/30/19 19:00 03/31/19 03:15 04/01/19 04:40 04/01/19 15:15 Vancomycin Level Trough 25.8 ug/mL (5.0-12.0) 21.1 ug/mL (5.0-12.0) White Blood Count 9.3 K/UL (4.8-10.8) 8.6 K/UL (4.8-10.8) Red Blood Count 2.40 M/UL (4.70-6.10) 2.85 M/UL (4.70-6.10) Hemoglobin 6.8 G/DL (14.2-18.0) 8.1 G/DL (14.2-18.0) Hematocrit 21.3 % (42.0-52.0) 25.4 % (42.0-52.0) Mean Corpuscular Volume 88 FL (80-99) 89 FL (80-99) Mean Corpuscular Hemoglobin 28.5 PG (27.0-31.0) 28.5 PG (27.0-31.0) Mean Corpuscular Hemoglobin Concent 32.2 G/DL (32.0-36.0) 32.0 G/DL (32.0-36.0) Red Cell Distribution Width 15.5 % (11.6-14.8) 16.0 % (11.6-14.8) Platelet Count 121 K/UL (150-450) 157 K/UL (150-450) Mean Platelet Volume 5.3 FL (6.5-10.1) 5.3 FL (6.5-10.1) Neutrophils (%) (Auto) % (45.0-75.0) 69.4 % (45.0-75.0) Lymphocytes (%) (Auto) % (20.0-45.0) 23.8 % (20.0-45.0) Monocytes (%) (Auto) % (1.0-10.0) 5.4 % (1.0-10.0) Eosinophils (%) (Auto) % (0.0-3.0) 0.9 % (0.0-3.0) Basophils (%) (Auto) % (0.0-2.0) 0.5 % (0.0-2.0) Differential Total Cells Counted 100 Neutrophils % (Manual) 75 % (45-75) Lymphocytes % (Manual) 19 % (20-45) Monocytes % (Manual) 6 % (1-10) Eosinophils % (Manual) 0 % (0-3) Basophils % (Manual) 0 % (0-2) Band Neutrophils 0 % (0-8) Platelet Estimate Decreased Platelet Morphology Normal Hypochromasia 1+ Anisocytosis 1+ Sodium Level 140 MMOL/L (136-145) Potassium Level 3.4 MMOL/L (3.5-5.1) Chloride Level 109 MMOL/L (98-107) Carbon Dioxide Level 23 MMOL/L (21-32) Anion Gap 8 mmol/L (5-15) Blood Urea Nitrogen 16 mg/dL (7-18) Creatinine 0.9 MG/DL (0.55-1.30) Estimat Glomerular Filtration Rate mL/min (>60) Glucose Level 74 MG/DL (74-106) Calcium Level 7.8 MG/DL (8.5-10.1) Test 04/02/19 06:30 White Blood Count 12.2 K/UL (4.8-10.8) Red Blood Count 2.63 M/UL (4.70-6.10) Hemoglobin 7.6 G/DL (14.2-18.0) Hematocrit 23.5 % (42.0-52.0) Mean Corpuscular Volume 89 FL (80-99) Mean Corpuscular Hemoglobin 28.8 PG (27.0-31.0) Mean Corpuscular Hemoglobin Concent 32.2 G/DL (32.0-36.0) Red Cell Distribution Width 15.5 % (11.6-14.8) Platelet Count 179 K/UL (150-450) Mean Platelet Volume 5.1 FL (6.5-10.1) Neutrophils (%) (Auto) % (45.0-75.0) Lymphocytes (%) (Auto) % (20.0-45.0) Monocytes (%) (Auto) % (1.0-10.0) Eosinophils (%) (Auto) % (0.0-3.0) Basophils (%) (Auto) % (0.0-2.0) Differential Total Cells Counted 100 Neutrophils % (Manual) 78 % (45-75) Lymphocytes % (Manual) 18 % (20-45) Monocytes % (Manual) 4 % (1-10) Eosinophils % (Manual) 0 % (0-3) Basophils % (Manual) 0 % (0-2) Band Neutrophils 0 % (0-8) Platelet Estimate Adequate Platelet Morphology Normal Anisocytosis 1+ Sodium Level 138 MMOL/L (136-145) Potassium Level 3.3 MMOL/L (3.5-5.1) Chloride Level 107 MMOL/L (98-107) Carbon Dioxide Level 24 MMOL/L (21-32) Anion Gap 7 mmol/L (5-15) Blood Urea Nitrogen 13 mg/dL (7-18) Creatinine 1.0 MG/DL (0.55-1.30) Estimat Glomerular Filtration Rate mL/min (>60) Glucose Level 174 MG/DL (74-106) Calcium Level 7.9 MG/DL (8.5-10.1) Magnesium Level 1.6 MG/DL (1.8-2.4) Height (Feet): 6 Height (Inches): 6.00 Weight (Pounds): 180 Objective PE General: severe distress, chronically Ill ENT: moist mucus membranes, ng++ Neck: limited range of motion Respiratory: respiratory distress, rhonch ++ vent Cardiovascular: RRr, no mgr Gastrointestinal: normal inspection, soft ++ peg Msk: normal inspection Neuro: responsive, motor weakness Skin: no rash Jake Womack MD Apr 02, 2019 12:37
--- NOTE | 2019-04-02 14:13 | Surgery Progress Note ---
Surgery Progress Note Subjective Additional Comments leukocytosis exam unchanged anemia on vent support ill appearing prognosis guarded Objective Last 24 Hour Vital Signs Date Time Temp Pulse Resp B/P (MAP) Pulse Ox O2 Delivery O2 Flow Rate FiO2 04/02/19 12:00 35 04/02/19 12:00 103 16 139/51 (80) 100 04/02/19 12:00 Mechanical Ventilator 04/02/19 11:25 100 24 35 04/02/19 11:00 102 15 110/61 (77) 100 04/02/19 10:04 63 8 106/49 (68) 100 04/02/19 09:00 68 19 114/64 (81) 100 04/02/19 08:30 94 23 35 04/02/19 08:00 85 04/02/19 08:00 Mechanical Ventilator 04/02/19 08:00 35 04/02/19 08:00 96.7 107 21 112/62 (79) 100 04/02/19 07:29 61 16 35 04/02/19 07:00 107 18 117/63 (81) 100 04/02/19 06:00 110 18 111/56 (74) 100 04/02/19 05:30 98 19 100/42 (61) 100 04/02/19 05:21 85 19 35 04/02/19 05:00 105 20 105/66 (79) 100 04/02/19 04:30 113 18 100/70 (80) 100 04/02/19 04:00 116 04/02/19 04:00 98.7 108 22 94/67 (76) 100 04/02/19 04:00 97/64 04/02/19 04:00 35 04/02/19 04:00 Mechanical Ventilator 04/02/19 03:42 105 21 35 04/02/19 03:30 112 29 142/71 (94) 100 04/02/19 03:00 101/67 04/02/19 03:00 119 26 101/67 (78) 100 04/02/19 02:30 122 26 102/70 (81) 99 04/02/19 02:00 132 26 113/84 (94) 99 04/02/19 02:00 113/84 04/02/19 01:30 124 25 102/68 (79) 94 04/02/19 01:20 109 22 35 04/02/19 01:16 142/70 8/25/19 01:00 126 24 142/70 (94) 94 04/02/19 00:30 116 21 123/98 (106) 100 04/02/19 00:00 35 04/02/19 00:00 113 04/02/19 00:00 125/78 04/02/19 00:00 Mechanical Ventilator 04/02/19 00:00 98.8 116 23 125/78 (94) 100 04/01/19 23:30 131 33 124/75 (91) 97 04/01/19 23:25 149 21 35 04/01/19 23:00 117 31 118/67 (84) 100 04/01/19 23:00 132/87 04/01/19 22:30 97 17 106/46 (66) 91 04/01/19 22:00 119/83 04/01/19 22:00 116 31 119/83 (95) 100 04/01/19 21:30 91 23 126/72 (90) 100 04/01/19 21:18 102 16 35 04/01/19 21:00 115 22 113/60 (77) 100 04/01/19 21:00 113/60 04/01/19 20:45 96 21 123/78 (93) 100 04/01/19 20:30 100 18 126/67 (86) 100 04/01/19 20:15 91 12 114/64 (81) 100 04/01/19 20:00 35 04/01/19 20:00 58 04/01/19 20:00 125/63 04/01/19 20:00 78 7 125/63 (83) 100 04/01/19 20:00 Mechanical Ventilator 04/01/19 19:45 77 12 112/66 (81) 100 04/01/19 19:30 98.5 59 16 124/50 (74) 100 04/01/19 19:15 58 15 122/42 (68) 100 04/01/19 19:10 109 22 35 04/01/19 19:00 58 14 117/41 (66) 100 04/01/19 19:00 117/41 04/01/19 18:45 64 13 118/40 (66) 100 04/01/19 18:30 99 11 108/45 (66) 100 04/01/19 18:15 115 19 138/71 (93) 100 8/24/19 18:00 77 11 107/44 (65) 100 04/01/19 18:00 138/71 04/01/19 17:48 79 12 119/41 (67) 100 04/01/19 17:45 71 12 162/96 (118) 100 04/01/19 17:30 63 2 110/41 (64) 100 04/01/19 17:20 95 20 35 04/01/19 17:15 94 21 133/81 (98) 100 04/01/19 17:00 133/81 04/01/19 17:00 107 27 125/68 (87) 100 04/01/19 16:56 106 28 135/87 (103) 100 04/01/19 16:45 107 30 145/84 (104) 100 04/01/19 16:39 100 23 137/88 (104) 100 04/01/19 16:33 71/35 04/01/19 16:30 103 26 121/100 (107) 100 04/01/19 16:15 88 25 128/47 (74) 100 04/01/19 16:00 87 23 124/57 (79) 100 04/01/19 16:00 35 04/01/19 16:00 Mechanical Ventilator 04/01/19 15:57 82 13 72/57 (62) 100 04/01/19 15:55 78 15 71/35 (47) 100 04/01/19 15:49 92 24 72/45 (54) 100 04/01/19 15:45 70 0 79/38 (52) 100 04/01/19 15:38 114 20 110/72 (85) 99 04/01/19 15:35 99 0 99/66 (77) 100 04/01/19 15:33 92 12 84/32 (49) 100 04/01/19 15:30 100 10 76/39 (51) 100 04/01/19 15:27 87 16 35 04/01/19 15:27 92 04/01/19 15:24 101 11 90/55 (67) 100 04/01/19 15:17 119 18 85/50 (62) 100 04/01/19 15:00 75 13 117/37 (63) 100 04/01/19 14:45 65 10 123/48 (73) 100 04/01/19 14:30 59 7 132/55 (80) 100 04/01/19 14:21 57 16 132/44 (73) 100 04/01/19 14:15 56 4 122/55 (77) 100 04/01/19 14:13 55 12 118/47 (70) 100 I&O Intake and Output 04/01/19 04/02/19 19:00 07:00 Intake Total 1055.12 ml 1315.000 ml Output Total 700 ml 660 ml Balance 355.12 ml 655.000 ml IV Total 275.12 ml 475.000 ml Tube Feeding 720 ml 720 ml Other 60 ml 120 ml Output Urine Total 700 ml 660 ml # Bowel Movements 2 2 Dressing: saturated Wound: other Drains: other Cardiovascular: RSR Respiratory: decreased breath sounds Abdomen: soft, present bowel sounds, non-distended Extremities: no cyanosis Laboratory Tests Test 04/01/19 15:15 04/02/19 06:30 Vancomycin Level Trough 21.1 ug/mL (5.0-12.0) H White Blood Count 12.2 K/UL (4.8-10.8) H Red Blood Count 2.63 M/UL (4.70-6.10) L Hemoglobin 7.6 G/DL (14.2-18.0) L Hematocrit 23.5 % (42.0-52.0) L Mean Corpuscular Volume 89 FL (80-99) Mean Corpuscular Hemoglobin 28.8 PG (27.0-31.0) Mean Corpuscular Hemoglobin Concent 32.2 G/DL (32.0-36.0) Red Cell Distribution Width 15.5 % (11.6-14.8) H Platelet Count 179 K/UL (150-450) Mean Platelet Volume 5.1 FL (6.5-10.1) L Neutrophils (%) (Auto) % (45.0-75.0) Lymphocytes (%) (Auto) % (20.0-45.0) Monocytes (%) (Auto) % (1.0-10.0) Eosinophils (%) (Auto) % (0.0-3.0) Basophils (%) (Auto) % (0.0-2.0) Differential Total Cells Counted 100 Neutrophils % (Manual) 78 % (45-75) H Lymphocytes % (Manual) 18 % (20-45) L Monocytes % (Manual) 4 % (1-10) Eosinophils % (Manual) 0 % (0-3) Basophils % (Manual) 0 % (0-2) Band Neutrophils 0 % (0-8) Platelet Estimate Adequate Platelet Morphology Normal Anisocytosis 1+ Sodium Level 138 MMOL/L (136-145) Potassium Level 3.3 MMOL/L (3.5-5.1) L Chloride Level 107 MMOL/L (98-107) Carbon Dioxide Level 24 MMOL/L (21-32) Anion Gap 7 mmol/L (5-15) Blood Urea Nitrogen 13 mg/dL (7-18) Creatinine 1.0 MG/DL (0.55-1.30) Estimat Glomerular Filtration Rate mL/min (>60) Glucose Level 174 MG/DL (74-106) H Calcium Level 7.9 MG/DL (8.5-10.1) L Magnesium Level 1.6 MG/DL (1.8-2.4) L Plan Problems: (1) Respiratory distress (2) Decubitus skin ulcer Assessment & Plan: Pt presented on admission with multiple pressure injuries and ulcerations 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 Base of wound has mixed slough and necrosis. Edges adherent and dark . Periwound indurated with darker skin tone. Pt complained of pain when minimally palpated. Mild odor noted Full thickness ulcer R tibia. Base of wound has slough. Edges adherent and flat ,Periwound without erythema or fluctuance. Stable dry eschar noted to R hallux. edges are dark but adherent to base of wound. Periwound dark without erythema or fluctuance Stable dry eschar noted to R st metatarsal head. Periwound pale without fluctuance Stable dry eschar noted to dorsal aspects of R 3rd and 4th metatarsals. Full thickness ulcer lateral R 5th metatarsal. base of wound with some areas of necrosis and edges are black . No odor or exudate noted Stable dry eschar R heel . Periwound fluctuant without erythema. Pt complained of pain when minimally palpated. Stable dry eschar noted to dorso/flexor L foot. Periwound without erythema , induration or fluctuance Reabsorbing blood blister noted to medial L foot. Periwound without erythema or fluctuance L heel is dry and blanchable with historical scarring from previous wounds .Dry flaky skin noted to both feet. Tx.Plan: Cleanse sacral wound with Dakin's 0.125% stefani. Loose pack wound with Dakin's moist Kerlix. Apply Moisture Barrier paste to borders and cover with Optifoam drsg. Twice daily and prn. Cleanse Wound R tibia with Saline. Apply Therahoney. Cover with Optifoam drsg. Change every 3 days and prn.Apply Cavilon Skin BArrier to both heels. Cover each heel with Optifoam drsg. change every 7 days and prn APM/PHIL mattress overlay. Reposition at least every 2hours or as tolerated. Off-load heels with pillow. (3) Severe sepsis Assessment & Plan: leukocytosis resolved anemia lactic acidosis resolved improving septic MRSA bacteremia labs noted imaging noted Cont IV abx as per ID feeds wounds evaluated and care plan as above labs noted f/u cxr will follow with recs thank you DAILY ESTIMATED NEEDS: Needs based on Wound, critical care 78.6kg 25-30 kcals/kg [id number] total kcals 1.25-2 g protein/kg 98-157 g total protein Fluid per MD, on lasix NUTRITION DIAGNOSIS: 1) Increased kcal/ pro needs r/t wound healing as evidenced by full thickness sacral wound, pending updated eval. 2) Swallowing difficulty r/t respiratory status as evidenced by s/p RR, pt now orally intubated, on pressor support. CURRENT DIET: Regular-> pt now intubated ENTERAL NUTRITION RECOMMENDATIONS: Osmolite 1.5 @55ml/hr x24 hrs + Prosource BID to provide 1320ml, 1980 kcal, 83g + 22g pro, 1006ml free H2O - WHEN HEMODYNAMICALLY STABLE, rec to obtain GI access, initiate non oral feeds to meed est nutritional needs - Start Osmolite 1.5 @25ml/hr for 6 hrs, advance as tolerated 10ml/hr q4-6 hrs to goal. 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
[2019-04-02] MEDS: fentaNYL Citrate 1000 MCG in NS 100ml IV SCH (14:45)
--- NOTE | 2019-04-02 14:52 | NUR ---
NURSE NOTES: Family at bedside.
--- NOTE | 2019-04-02 16:00 | General Progress Note ---
Assessment/Plan Status: unchanged Assessment/Plan: Assessment/Plan Problem List: (1) GI bleed ICD Codes: K92.2 - Gastrointestinal hemorrhage, unspecified SNOMED: 99063665 (2) Anemia ICD Codes: D64.9 - Anemia, unspecified SNOMED: 206901853 (3) Lung mass ICD Codes: R91.8 - Other nonspecific abnormal finding of lung field SNOMED: 664282080 (4) Decubitus skin ulcer ICD Codes: L89.90 - Pressure ulcer of unspecified site, unspecified stage SNOMED: 261848879 (5) Hypothyroidism ICD Codes: E03.9 - Hypothyroidism, unspecified SNOMED: 82878186 Status: unchanged RECOMMENDATIONS: Follow biopsy results and treat accordingly. TF electrolyte correction prn transfusions ppi Subjective Allergies: Coded Allergies: No Known Allergies (Unverified , 01/18/19) Subjective seen in ICU Intubated awake responsive with head nods Objective Last 24 Hour Vital Signs Date Time Temp Pulse Resp B/P (MAP) Pulse Ox O2 Delivery O2 Flow Rate FiO2 04/02/19 15:08 63 17 35 04/02/19 15:00 71 16 163/56 (91) 100 04/02/19 14:00 59 16 133/41 (71) 100 04/02/19 13:16 74 18 35 04/02/19 13:00 58 16 118/40 (66) 100 04/02/19 12:27 101 04/02/19 12:00 35 04/02/19 12:00 103 16 139/51 (80) 100 04/02/19 12:00 Mechanical Ventilator 04/02/19 11:25 100 24 35 04/02/19 11:00 102 15 110/61 (77) 100 04/02/19 10:04 63 8 106/49 (68) 100 04/02/19 09:00 68 19 114/64 (81) 100 04/02/19 08:30 94 23 35 04/02/19 08:00 85 04/02/19 08:00 Mechanical Ventilator 04/02/19 08:00 35 04/02/19 08:00 96.7 107 21 112/62 (79) 100 04/02/19 07:29 61 16 35 04/02/19 07:00 107 18 117/63 (81) 100 04/02/19 06:00 110 18 111/56 (74) 100 04/02/19 05:30 98 19 100/42 (61) 100 04/02/19 05:21 85 19 35 04/02/19 05:00 105 20 105/66 (79) 100 04/02/19 04:30 113 18 100/70 (80) 100 04/02/19 04:00 116 04/02/19 04:00 98.7 108 22 94/67 (76) 100 04/02/19 04:00 97/64 04/02/19 04:00 35 04/02/19 04:00 Mechanical Ventilator 04/02/19 03:42 105 21 35 04/02/19 03:30 112 29 142/71 (94) 100 04/02/19 03:00 101/67 04/02/19 03:00 119 26 101/67 (78) 100 04/02/19 02:30 122 26 102/70 (81) 99 04/02/19 02:00 132 26 113/84 (94) 99 04/02/19 02:00 113/84 04/02/19 01:30 124 25 102/68 (79) 94 04/02/19 01:20 109 22 35 04/02/19 01:16 142/70 04/02/19 01:00 126 24 142/70 (94) 94 04/02/19 00:30 116 21 123/98 (106) 100 04/02/19 00:00 35 04/02/19 00:00 113 04/02/19 00:00 125/78 04/02/19 00:00 Mechanical Ventilator 04/02/19 00:00 98.8 116 23 125/78 (94) 100 04/01/19 23:30 131 33 124/75 (91) 97 04/01/19 23:25 149 21 35 04/01/19 23:00 117 31 118/67 (84) 100 04/01/19 23:00 132/87 04/01/19 22:30 97 17 106/46 (66) 91 04/01/19 22:00 119/83 04/01/19 22:00 116 31 119/83 (95) 100 04/01/19 21:30 91 23 126/72 (90) 100 04/01/19 21:18 102 16 35 04/01/19 21:00 115 22 113/60 (77) 100 04/01/19 21:00 113/60 04/01/19 20:45 96 21 123/78 (93) 100 04/01/19 20:30 100 18 126/67 (86) 100 04/01/19 20:15 91 12 114/64 (81) 100 04/01/19 20:00 35 04/01/19 20:00 58 04/01/19 20:00 125/63 04/01/19 20:00 78 7 125/63 (83) 100 04/01/19 20:00 Mechanical Ventilator 04/01/19 19:45 77 12 112/66 (81) 100 04/01/19 19:30 98.5 59 16 124/50 (74) 100 04/01/19 19:15 58 15 122/42 (68) 100 04/01/19 19:10 109 22 35 04/01/19 19:00 58 14 117/41 (66) 100 04/01/19 19:00 117/41 04/01/19 18:45 64 13 118/40 (66) 100 04/01/19 18:30 99 11 108/45 (66) 100 04/01/19 18:15 115 19 138/71 (93) 100 04/01/19 18:00 77 11 107/44 (65) 100 04/01/19 18:00 138/71 04/01/19 17:48 79 12 119/41 (67) 100 04/01/19 17:45 71 12 162/96 (118) 100 04/01/19 17:30 63 2 110/41 (64) 100 04/01/19 17:20 95 20 35 04/01/19 17:15 94 21 133/81 (98) 100 04/01/19 17:00 133/81 04/01/19 17:00 107 27 125/68 (87) 100 04/01/19 16:56 106 28 135/87 (103) 100 04/01/19 16:45 107 30 145/84 (104) 100 04/01/19 16:39 100 23 137/88 (104) 100 04/01/19 16:33 71/35 04/01/19 16:30 103 26 121/100 (107) 100 04/01/19 16:15 88 25 128/47 (74) 100 04/01/19 16:00 87 23 124/57 (79) 100 04/01/19 16:00 35 04/01/19 16:00 Mechanical Ventilator Intake and Output 04/01/19 04/02/19 18:59 06:59 Intake Total 972.62 ml 1337.500 ml Output Total 700 ml 650 ml Balance 272.62 ml 687.500 ml IV Total 252.62 ml 497.500 ml Tube Feeding 660 ml 720 ml Other 60 ml 120 ml Output Urine Total 700 ml 650 ml # Bowel Movements 2 2 Laboratory Tests 04/02/19 06:30: White Blood Count 12.2H, Red Blood Count 2.63L, Hemoglobin 7.6L, Hematocrit 23.5L, Mean Corpuscular Volume 89, Mean Corpuscular Hemoglobin 28.8, Mean Corpuscular Hemoglobin Concent 32.2, Red Cell Distribution Width 15.5H, Platelet Count 179, Mean Platelet Volume 5.1L, Neutrophils (%) (Auto) , Lymphocytes (%) (Auto) , Monocytes (%) (Auto) , Eosinophils (%) (Auto) , Basophils (%) (Auto) , Differential Total Cells Counted 100, Neutrophils % ( Manual) 78H, Lymphocytes % (Manual) 18L, Monocytes % (Manual) 4, Eosinophils % ( Manual) 0, Basophils % (Manual) 0, Band Neutrophils 0, Platelet Estimate Adequate, Platelet Morphology Normal, Anisocytosis 1+, Sodium Level 138, Potassium Level 3.3L, Chloride Level 107, Carbon Dioxide Level 24, Anion Gap 7, Blood Urea Nitrogen 13, Creatinine 1.0, Estimat Glomerular Filtration Rate , Glucose Level 174H, Calcium Level 7.9L, Magnesium Level 1.6L Height (Feet): 6 Height (Inches): 6.00 Weight (Pounds): 180 Objective NCAT, (+) ETT, (+) NGT supple CTA RRR Abd soft (++) edema Andressa Chaney MD Apr 02, 2019 16:00
--- NOTE | 2019-04-02 16:15 | NUR ---
NURSE NOTES: Patient was noted to have INC secretions. Patient was suctioned via the ETT. Thick whitest secretions were removed via ETT. Oral care was done. Patient was AAO x 3. Pt is very responsive to questions with head nods and follows commands. Family is at bedside. Will con't to monitor.
[2019-04-02] MEDS: D5W IV SCH (16:30)
[2019-04-02] MEDS: NOREPINEPHRINE BITARTRATE IV SCH (16:30)
[2019-04-02] MEDS: Xarelto 10mg tab NG SCH (17:29)
--- NOTE | 2019-04-02 18:45 | NUR ---
NURSE NOTES: Informed Dr. Mims regarding today's potassium level of 3.3 and mag level of 1.6. Telephone order obtained from Dr. Mims to give 20meq IV x 1, and 1 gm magnesium IV x 1. Charge nurse made aware.
--- NOTE | 2019-04-02 18:54 | Pulmonolgy Critical Care Note ---
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 (11) Hypothyroidism weaning as tolerated abx nebs and suction pressors for map less than 65 mmhg wound care tf replace lytes aspiration precaution diuresis as bp will tolerate Respiratory: CXR, weaning trial Cardiac: continue to monitor HR/BP Infectious Disease: check cultures, continue antibiotics Neurologic: PRN Ativan Prophylaxis: Protonix, Heparin Time Spent (Minutes): 50 Notes 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 Discussed with: nurses, consultants Critical Care - Objective Last 24 Hour Vital Signs Date Time Temp Pulse Resp B/P (MAP) Pulse Ox O2 Delivery O2 Flow Rate FiO2 04/02/19 18:00 68 16 135/74 (94) 100 04/02/19 17:00 96.9 59 15 140/63 (88) 100 04/02/19 16:58 61 17 35 04/02/19 16:00 59 16 134/48 (76) 100 04/02/19 16:00 35 04/02/19 16:00 Mechanical Ventilator 04/02/19 15:58 66 04/02/19 15:08 63 17 35 04/02/19 15:00 71 16 163/56 (91) 100 04/02/19 14:00 59 16 133/41 (71) 100 04/02/19 13:16 74 18 35 04/02/19 13:00 58 16 118/40 (66) 100 04/02/19 12:27 101 04/02/19 12:00 35 04/02/19 12:00 103 16 139/51 (80) 100 04/02/19 12:00 Mechanical Ventilator 04/02/19 11:25 100 24 35 04/02/19 11:00 102 15 110/61 (77) 100 04/02/19 10:04 63 8 106/49 (68) 100 04/02/19 09:00 68 19 114/64 (81) 100 04/02/19 08:30 94 23 35 04/02/19 08:00 85 04/02/19 08:00 Mechanical Ventilator 04/02/19 08:00 35 04/02/19 08:00 96.7 107 21 112/62 (79) 100 04/02/19 07:29 61 16 35 04/02/19 07:00 107 18 117/63 (81) 100 04/02/19 06:00 110 18 111/56 (74) 100 04/02/19 05:30 98 19 100/42 (61) 100 04/02/19 05:21 85 19 35 04/02/19 05:00 105 20 105/66 (79) 100 04/02/19 04:30 113 18 100/70 (80) 100 04/02/19 04:00 116 04/02/19 04:00 98.7 108 22 94/67 (76) 100 04/02/19 04:00 97/64 04/02/19 04:00 35 04/02/19 04:00 Mechanical Ventilator 04/02/19 03:42 105 21 35 04/02/19 03:30 112 29 142/71 (94) 100 04/02/19 03:00 101/67 04/02/19 03:00 119 26 101/67 (78) 100 04/02/19 02:30 122 26 102/70 (81) 99 04/02/19 02:00 132 26 113/84 (94) 99 04/02/19 02:00 113/84 04/02/19 01:30 124 25 102/68 (79) 94 04/02/19 01:20 109 22 35 04/02/19 01:16 142/70 04/02/19 01:00 126 24 142/70 (94) 94 04/02/19 00:30 116 21 123/98 (106) 100 04/02/19 00:00 35 04/02/19 00:00 113 04/02/19 00:00 125/78 04/02/19 00:00 Mechanical Ventilator 04/02/19 00:00 98.8 116 23 125/78 (94) 100 04/01/19 23:30 131 33 124/75 (91) 97 04/01/19 23:25 149 21 35 04/01/19 23:00 117 31 118/67 (84) 100 04/01/19 23:00 132/87 04/01/19 22:30 97 17 106/46 (66) 91 04/01/19 22:00 119/83 04/01/19 22:00 116 31 119/83 (95) 100 04/01/19 21:30 91 23 126/72 (90) 100 04/01/19 21:18 102 16 35 04/01/19 21:00 115 22 113/60 (77) 100 04/01/19 21:00 113/60 04/01/19 20:45 96 21 123/78 (93) 100 04/01/19 20:30 100 18 126/67 (86) 100 04/01/19 20:15 91 12 114/64 (81) 100 04/01/19 20:00 35 04/01/19 20:00 58 04/01/19 20:00 125/63 04/01/19 20:00 78 7 125/63 (83) 100 04/01/19 20:00 Mechanical Ventilator 04/01/19 19:45 77 12 112/66 (81) 100 04/01/19 19:30 98.5 59 16 124/50 (74) 100 04/01/19 19:15 58 15 122/42 (68) 100 04/01/19 19:10 109 22 35 04/01/19 19:00 58 14 117/41 (66) 100 04/01/19 19:00 117/41 Status: somnolent Condition: critical Heart: HR/BP unstable Abdomen: soft, active bowel sounds Extremities: edema Critical Care - Subjective ROS Limited/Unobtainable: Yes Condition: critical FI02: 35 Vent Support Breath Rate: 16 Vent Support Mode: AC Vent Tidal Volume: 600 Sputum Amount: Scant PEEP: 5.0 PIP: 29 Tube Feeding Amount: 60 I&O: Intake and Output 04/01/19 04/02/19 18:59 06:59 Intake Total 972.62 ml 1337.500 ml Output Total 700 ml 650 ml Balance 272.62 ml 687.500 ml IV Total 252.62 ml 497.500 ml Tube Feeding 660 ml 720 ml Other 60 ml 120 ml Output Urine Total 700 ml 650 ml # Bowel Movements 2 2 Subjective: ON THE VENT NO DISTRESS NO BLEEDING SECRETIONS NOTED TOLERATING TF NO FEVER ON ABX REmains ON PRESSORS AT THIS TIME CXR: rul infiltrate resolved still with chf ET-Tube: 7.5 ET Position: 24 Labs: Current Medications Medications (Trade) Dose Ordered Sig/Vaughn Route PRN Reason Start Time Stop Time Status Last Admin Dose Admin Acetaminophen (Tylenol) 650 mg Q4H PRN NG Mild Pain/Temp > 100.5 03/30/19 18:42 04/29/19 18:41 Ascorbic Acid (Vitamin C) 250 mg EVERY 12 HOURS NG 03/31/19 21:00 04/26/19 17:59 04/02/19 08:07 Chlorhexidine Gluconate (Michelle-Hex 2%) 1 applic DAILY@1999 TOPIC 03/27/19 20:00 04/03/19 19:59 04/02/19 19:45 Chlorhexidine Gluconate (Imchelle-Hex 2%) 1 applic DAILY@1999 TOPIC 04/03/19 20:00 05/03/19 19:59 Fentanyl Citrate 1000 mcg/Sodium Chloride 100 ml @ 0 mls/hr Q24H IV 03/28/19 14:45 04/04/19 14:44 03/28/19 20:47 Heparin Sodium/ Sodium Chloride (Heparin 1000 units/500ml Premix) 1,000 unit ONCE IV 04/03/19 09:00 04/03/19 23:00 Levothyroxine Sodium (Synthroid) 100 mcg DAILY@0630 NG 03/31/19 06:30 04/30/19 06:29 04/02/19 06:19 Lidocaine HCl (Xylocaine 1% 30ml) 30 ml ONCE INJ 04/03/19 09:00 04/03/19 23:00 Magnesium Sulfate 100 ml @ 100 mls/hr ONCE ONCE IVPB 04/02/19 19:00 04/02/19 19:59 04/02/19 19:45 Midazolam HCl (Versed 2mg/2ml vial) 1 mg Q2H PRN IVP For Anxiety 03/28/19 14:45 04/27/19 14:44 Midodrine (Pro-Amatine) 5 mg EVERY 8 HOURS NG 03/31/19 14:30 04/27/19 17:59 04/02/19 14:12 Norepinephrine Bitartrate 8 mg/ Dextrose 500 ml @ 0 mls/hr Q24H IV 04/01/19 16:30 05/01/19 16:29 04/01/19 16:33 Pantoprazole (Protonix) 40 mg DAILY IVP 03/27/19 09:00 04/26/19 08:59 04/02/19 08:07 Piperacillin Sod/ Tazobactam Sod 3.375 gm/Sodium Chloride 110 ml @ 27.5 mls/hr EVERY 8 HOURS IVPB 03/26/19 22:00 04/04/19 21:59 04/02/19 14:12 Potassium Chloride 100 ml @ 50 mls/hr ONCE ONCE IVPB 04/02/19 19:00 04/02/19 20:59 04/02/19 19:45 Rivaroxaban (Xarelto) 20 mg QPM NG 03/31/19 16:30 04/29/19 16:29 04/02/19 17:29 Sodium Hypochlorite (Dakin's Quarter Strength) 1 applic EVERY 12 HOURS TOPIC 04/01/19 21:00 04/27/19 00:00 04/02/19 08:07 Vancomycin HCl (Vanco rx to dose) 1 ea DAILY PRN MISC Per rx protocol 03/27/19 16:00 04/26/19 15:59 Vancomycin HCl 1 gm/Dextrose 275 ml @ 183.708 mls/hr Q24H IVPB 04/01/19 23:00 04/06/19 22:59 04/01/19 22:48 Zinc Sulfate (Zinc Sulfate) 220 mg DAILY NG 03/31/19 09:00 04/27/19 08:59 04/02/19 08:07 Laboratory Tests Test 04/02/19 06:30 White Blood Count 12.2 K/UL (4.8-10.8) H Red Blood Count 2.63 M/UL (4.70-6.10) L Hemoglobin 7.6 G/DL (14.2-18.0) L Hematocrit 23.5 % (42.0-52.0) L Mean Corpuscular Volume 89 FL (80-99) Mean Corpuscular Hemoglobin 28.8 PG (27.0-31.0) Mean Corpuscular Hemoglobin Concent 32.2 G/DL (32.0-36.0) Red Cell Distribution Width 15.5 % (11.6-14.8) H Platelet Count 179 K/UL (150-450) Mean Platelet Volume 5.1 FL (6.5-10.1) L Neutrophils (%) (Auto) % (45.0-75.0) Lymphocytes (%) (Auto) % (20.0-45.0) Monocytes (%) (Auto) % (1.0-10.0) Eosinophils (%) (Auto) % (0.0-3.0) Basophils (%) (Auto) % (0.0-2.0) Differential Total Cells Counted 100 Neutrophils % (Manual) 78 % (45-75) H Lymphocytes % (Manual) 18 % (20-45) L Monocytes % (Manual) 4 % (1-10) Eosinophils % (Manual) 0 % (0-3) Basophils % (Manual) 0 % (0-2) Band Neutrophils 0 % (0-8) Platelet Estimate Adequate Platelet Morphology Normal Anisocytosis 1+ Sodium Level 138 MMOL/L (136-145) Potassium Level 3.3 MMOL/L (3.5-5.1) L Chloride Level 107 MMOL/L (98-107) Carbon Dioxide Level 24 MMOL/L (21-32) Anion Gap 7 mmol/L (5-15) Blood Urea Nitrogen 13 mg/dL (7-18) Creatinine 1.0 MG/DL (0.55-1.30) Estimat Glomerular Filtration Rate mL/min (>60) Glucose Level 174 MG/DL (74-106) H Calcium Level 7.9 MG/DL (8.5-10.1) L Magnesium Level 1.6 MG/DL (1.8-2.4) Bibiana Bain DO Apr 02, 2019 18:54
--- NOTE | 2019-04-02 19:20 | NUR ---
HAND-OFF: Report given to Blas Caraballo RN.
[2019-04-02] MEDS: Dyna-Hex 2% Top Sol 2oz TOPIC SCH (19:45)
--- NOTE | 2019-04-02 19:50 | NUR ---
NURSE NOTES: PATIENT ALERT, ORIENTED TO NAME, DID NOT FOLLOW COMMANDS, RESISTANT TO CARE AT THIS TIME, ON ETT TO VENT, AC16/TV600/FIO2 35%/PEEP5, O2 SATURATION 100% AT THIS TIME, ON NGT TO RIGHT NARES, ONGOING OSMOLITE 1.5 AT 60ML/HR, NO RESIDUE NOTED, KEPT HOB 30 DEGREES, ABDOMEN SOFT, NO BOWEL MOVEMENT STATUS, F/C INTACT AND PATENT, YELLOW URINE OUTED, TLC TO RIGHT FEMORAL, INTACT AND DRIED DRESSING STATUS, ON P200 BED, ON BED ALAR, MADE LOWER BED POSITION, PROVIDED CALL LIGHT WITHIN REACH, WILL CONTINUE TO MONITOR. Addendum: 04/02/19 at 2317 by SHAUN DINH RN NURSE NOTES: PATIENT ALERT, ORIENTED TO NAME, DID NOT FOLLOW COMMANDS, RESISTANT TO CARE AT THIS TIME, ON ETT TO VENT, AC16/TV600/FIO2 35%/PEEP5, O2 SATURATION 100% AT THIS TIME, ON NGT TO RIGHT NARES, ONGOING OSMOLITE 1.5 AT 60ML/HR, NO RESIDUE NOTED, KEPT HOB 30 DEGREES, ABDOMEN SOFT, NO BOWEL MOVEMENT STATUS, F/C INTACT AND PATENT, YELLOW URINE OUTED, TLC TO RIGHT FEMORAL, INTACT AND DRIED DRESSING STATUS, 2 POINT SOFT RESTRAINTS FOR SAFETY, ON P200 BED, ON BED ALAR, MADE LOWER BED POSITION, PROVIDED CALL LIGHT WITHIN REACH, WILL CONTINUE TO MONITOR.
--- NOTE | 2019-04-02 20:00 | NUR ---
NURSE NOTES: SEEN THE PATIENT BY DR. MILLARD, MADE NEW ORDER, WILL FOLLOW UP.
--- NOTE | 2019-04-02 21:50 | NUR ---
NURSE NOTES: ORAL CARE WAS DONE, RELEASED 2 POINT SOFT RESTRAINTS, REAPPLIED FOR SAFETY, WILL CONTINUE TO MONITOR.
[2019-04-02] MEDS: Vancomycin 1gm/D5W 275ml IVPB SCH ×2 (22:54)
--- NOTE | 2019-04-02 23:10 | NUR ---
NURSE NOTES: RT FOUND PT'S ONE OF SMALL INCISION TOOTH ON PT'S RIGHT SIDE NECK WHICH IS SPONTANEOUS EXPELLED NO BLEEDING NOTED, WILL CONTINUE TO MONITOR.
[2019-04-03] VITALS (23 sets, daily range): BP systolic 113–142; BP diastolic 36–92
--- NOTE | 2019-04-03 01:06 | NUR ---
NURSE NOTES: PATIENT ASLEEP STATUS, NO PAIN OR DISTRESS NOTED AT THIS TIME.
--- NOTE | 2019-04-03 03:20 | NUR ---
NURSE NOTES: ORAL CARE AND MORNING CARE WAS DONE.
[2019-04-03] MEDS: Piperacillin/Tazobactam 3.375 GM in NS 110 ML IVPB SCH ×3 (06:00→22:25)
--- NOTE | 2019-04-03 06:00 | NUR ---
NURSE NOTES: NO ACUTE DISTRESS NOTED AT THIS SHIFT, KEPT NPO SINCE 4AM FOR WEANING THIS MORNING.
--- NOTE | 2019-04-03 07:00 | NUR ---
RESPIRATORY NOTES: Received Patient on Vent settings ACVC 16, VT 600, Fio2 35%, PEEP +5. Patient currently intubated with 7.5 ETT at 24 cm lip line, secured with anchorfast. Patient awake and alert. Breath sounds are bilateral diminished throughout both lung teague. Suctioned small amount of clear white secretions Q2 and PRN. Vent plugged into red outlet. Alarms are on and audible. Will continue to monitor throughout the day.
--- NOTE | 2019-04-03 07:14 | NUR ---
HAND-OFF: Report given to CELINE VIERA.
--- NOTE | 2019-04-03 07:30 | NUR ---
RESPIRATORY NOTES: Weaning trial passed. Weaning started at 0730. PS +8 PEEP +5 FIO2 35%. Patient tolerating well, will continue to monitor.
--- NOTE | 2019-04-03 07:31 | NUR ---
NURSE NOTES: Report received from Blas RN. Pt alert and oriented x1, spontaneous eye opening with tracking. Pt on engine monitor, SB in the 50s. Pt orally intubated ETT 7.5, 24 cm lipline, AC 16, TV 600, 35% fiO2, PEEP 5. NTG noted with osmolite on hold for weaning. Jose noted and intact with clear samson urine to gravity. 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 Right femoral TLC noted and intact with zosyn running. Bilateral soft wrist restraints noted and intact. Safety measures in place with bed locked and in lowest position, side rails x3 up and bed alarm on. Will continue to monitor and continue plan of care.
[2019-04-03 08:15] LABS: HEMATOCRIT 22.9 % (42.0-52.0); HEMOGLOBIN 7.2 G/DL (14.2-18.0); MEAN CORPUSCULAR VOLUME 89 FL (80-99); PLATELET COUNT 223 K/UL (150-450); RED BLOOD COUNT 2.56 M/UL (4.70-6.10); RED CELL DISTRIBUTION WIDTH 15.8 % (11.6-14.8); WHITE BLOOD COUNT 8.3 K/UL (4.8-10.8)
[2019-04-03] MEDS: Ascorbic Acid 500mg tab NG SCH ×2 (08:39→20:41)
[2019-04-03] MEDS: Pantoprazole Inj IVP SCH (08:39)
[2019-04-03] MEDS: Zinc Sulfate 220mg cap NG SCH (08:39)
[2019-04-03] MEDS: Dakin's 0.125% Soln (Quarter Strength) 16oz TOPIC SCH ×2 (08:40→20:41)
[2019-04-03 08:48] LABS: ANION GAP 5 mmol/L (5-15); BLOOD UREA NITROGEN 13 mg/dL (7-18); CALCIUM 8.1 MG/DL (8.5-10.1); CARBON DIOXIDE 26 MMOL/L (21-32); CHLORIDE 107 MMOL/L (98-107); CREATININE 0.9 MG/DL (0.55-1.30); POTASSIUM 3.5 MMOL/L (3.5-5.1); SODIUM 138 MMOL/L (136-145)
[2019-04-03] MEDS ORDERED: Heparin1,000 units/500ml Premix(Conc:2 units/ml) IV SCH (09:00)
[2019-04-03] MEDS ORDERED: Lidocaine 1% Plain 30 ml INJ SCH (09:00)
--- NOTE | 2019-04-03 09:06 | NUR ---
NURSE NOTES: Dr Najera came to see pt. said pt can be extubated. RT extubated pt at 0900 and placed him on 3 L O2 via nasal cannula. Pt trying to cough out phlegm. Will continue to monitor.
--- NOTE | 2019-04-03 09:54 | General Progress Note ---
Assessment/Plan Problem List: (1) GI bleed ICD Codes: K92.2 - Gastrointestinal hemorrhage, unspecified SNOMED: 62450471 (2) Anemia ICD Codes: D64.9 - Anemia, unspecified SNOMED: 297474409 (3) Lung mass ICD Codes: R91.8 - Other nonspecific abnormal finding of lung field SNOMED: 989245561 (4) Decubitus skin ulcer ICD Codes: L89.90 - Pressure ulcer of unspecified site, unspecified stage SNOMED: 961043970 (5) Hypothyroidism ICD Codes: E03.9 - Hypothyroidism, unspecified SNOMED: 14687634 Status: unchanged Assessment/Plan: SUMMARY OF FINDINGS: Gastritis, otherwise normal upper endoscopic examination. RECOMMENDATIONS: Follow biopsy results and treat accordingly. TF electrolyte correction prn transfusions ppi pulm care cbc in am Subjective ROS Limited/Unobtainable: No Allergies: Coded Allergies: No Known Allergies (Unverified , 01/18/19) Objective Last 24 Hour Vital Signs Date Time Temp Pulse Resp B/P (MAP) Pulse Ox O2 Delivery O2 Flow Rate FiO2 04/03/19 09:08 100 Nasal Cannula 3.0 32 04/03/19 09:07 Nasal Cannula 3.0 32 04/03/19 09:00 54 13 142/49 (80) 100 04/03/19 08:00 98.0 55 12 120/51 (74) 100 04/03/19 08:00 35 04/03/19 08:00 Mechanical Ventilator 04/03/19 08:00 54 04/03/19 07:29 60 13 35 35 04/03/19 07:00 54 16 134/92 (106) 100 04/03/19 06:00 54 16 122/55 (77) 100 04/03/19 05:11 58 16 35 04/03/19 05:00 57 17 122/45 (70) 100 04/03/19 04:00 66 04/03/19 04:00 35 04/03/19 04:00 97.6 56 16 114/52 (72) 100 04/03/19 04:00 Mechanical Ventilator 04/03/19 03:30 71 18 35 04/03/19 03:00 63 16 124/80 (95) 100 04/03/19 02:00 56 16 113/36 (61) 100 04/03/19 01:00 58 17 118/43 (68) 100 04/03/19 00:40 66 18 35 04/03/19 00:00 97.6 72 16 117/47 (70) 100 04/03/19 00:00 Mechanical Ventilator 04/03/19 00:00 60 04/02/19 23:22 65 17 35 04/02/19 23:00 97 14 98/77 (84) 100 04/02/19 22:54 79 04/02/19 22:00 62 17 119/47 (71) 100 04/02/19 21:03 60 18 35 04/02/19 21:00 56 15 107/40 (62) 100 04/02/19 20:00 97.7 70 14 119/43 (68) 100 04/02/19 20:00 Mechanical Ventilator 04/02/19 20:00 35 04/02/19 19:56 58 16 35 04/02/19 19:13 109 04/02/19 19:00 83 19 102/39 (60) 100 04/02/19 18:00 68 16 135/74 (94) 100 04/02/19 17:00 96.9 59 15 140/63 (88) 100 04/02/19 16:58 61 17 35 04/02/19 16:00 59 16 134/48 (76) 100 04/02/19 16:00 35 04/02/19 16:00 Mechanical Ventilator 04/02/19 15:58 66 04/02/19 15:08 63 17 35 04/02/19 15:00 71 16 163/56 (91) 100 04/02/19 14:00 59 16 133/41 (71) 100 04/02/19 13:16 74 18 35 04/02/19 13:00 58 16 118/40 (66) 100 04/02/19 12:27 101 04/02/19 12:00 35 04/02/19 12:00 103 16 139/51 (80) 100 04/02/19 12:00 Mechanical Ventilator 04/02/19 11:25 100 24 35 04/02/19 11:00 102 15 110/61 (77) 100 04/02/19 10:04 63 8 106/49 (68) 100 Intake and Output 04/02/19 04/03/19 19:00 07:00 Intake Total 1120.0 ml 1302.5 ml Output Total 600 ml 605 ml Balance 520.0 ml 697.5 ml IV Total 220.0 ml 612.5 ml Tube Feeding 720 ml 540 ml Other 180 ml 150 ml Output Urine Total 600 ml 605 ml # Bowel Movements 2 Laboratory Tests 04/03/19 08:00: White Blood Count 8.3, Red Blood Count 2.56L, Hemoglobin 7.2L, Hematocrit 22.9L , Mean Corpuscular Volume 89, Mean Corpuscular Hemoglobin 28.0, Mean Corpuscular Hemoglobin Concent 31.4L, Red Cell Distribution Width 15.8H, Platelet Count 223, Mean Platelet Volume 4.9L, Neutrophils (%) (Auto) , Lymphocytes (%) (Auto) , Monocytes (%) (Auto) , Eosinophils (%) (Auto) , Basophils (%) (Auto) , Neutrophils % (Manual) [Pending], Lymphocytes % (Manual) [Pending], Platelet Estimate [Pending], Platelet Morphology [Pending], Sodium Level 138, Potassium Level 3.5, Chloride Level 107, Carbon Dioxide Level 26, Anion Gap 5, Blood Urea Nitrogen 13, Creatinine 0.9, Estimat Glomerular Filtration Rate , Glucose Level 82, Calcium Level 8.1L, Magnesium Level 1.8, Pro -B-Type Natriuretic Peptide 3719H Height (Feet): 6 Height (Inches): 6.00 Weight (Pounds): 186 General Appearance: no apparent distress EENT: normal ENT inspection Neck: supple Cardiovascular: normal rate Respiratory/Chest: decreased breath sounds Abdomen: normal bowel sounds, non tender, soft Extremities: non-tender Sergei Roche MD Apr 03, 2019 09:54
--- NOTE | 2019-04-03 10:29 | NUR ---
NURSE NOTES: No acute distress and VSS post extubation. Restraints dc and pt cooperative. Will continue to monitor.
[2019-04-03] MEDS ORDERED: NS 275ml ONE (10:55)
[2019-04-03] MEDS ORDERED: Tubing IV Secondary IV ONE (10:55)
--- NOTE | 2019-04-03 11:32 | NUR ---
RD ASSESSMENT & RECOMMENDATIONS SEE CARE ACTIVITY FOR COMPLETE ASSESSMENT DAILY ESTIMATED NEEDS: Needs based on Wound, pulmonary, CHF 78.6kg 25-35 kcals/kg 1304-0681 total kcals 1.25-2 g protein/kg 98-157 g total protein 20-25 mL/kg 4154-6672 total fluid mLs NUTRITION DIAGNOSIS: 1) Increased kcal/ pro needs r/t wound healing as evidenced by full thickness wounds @ sacrum and cinthya R tibia. 2) Swallowing difficulty r/t respiratory status as evidenced by s/p RR, pt now orally intubated, on pressor support, on NGT feeding-> now s/p extubation, SPIN[employer] IR[employer] eval pending. (UPDATED) (CURRENT TF:Omsolite 1.5 @60ml/hr x24 hrs- HELD) PO DIET RECOMMENDATIONS--->>> LOW NA DIET/ TEXTURE PER SP[employer]NER IR[employer] ENTERAL NUTRITION RECOMMENDATIONS: Osmolite 1.5 @60ml/hr x24 hrs + Prosource 1 pkt QD to provide 1440ml, 2160kcal, 90g + 11g prot, 1097ml free water - Add Prosource 1pkt daily to meet protein needs - Flush per MD/ HOB over 30 degrees ADDITIONAL RECOMMENDATIONS: 1) Obtain a CALIBRATED bed wt 2) Monitor HD stability- s/p extubation 3) WOUND CARE: Add BRUCE BID w/ GI access Continue Vit C and ZnSO4 4) SPINNER IRON eval upon extubation 5) Monitor lytes, replete as needed 6) Add Ensure BID w/ oral diet + snacks in b/w meals
--- NOTE | 2019-04-03 11:59 | Infectious Diseases Prog Note ---
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 Will have PICC line placement Will f/u cultures Subjective ROS Limited/Unobtainable: Yes Respiratory: Reports: other - extubated today Neurologic: Reports: other - more responsive Allergies: Coded Allergies: No Known Allergies (Unverified , 01/18/19) Objective Vital Signs Last 24 Hour Vital Signs Date Time Temp Pulse Resp B/P (MAP) Pulse Ox O2 Delivery O2 Flow Rate FiO2 04/03/19 11:00 71 17 114/50 (71) 99 04/03/19 10:00 59 16 116/51 (72) 99 04/03/19 09:08 100 Nasal Cannula 3.0 32 04/03/19 09:07 Nasal Cannula 3.0 32 04/03/19 09:00 54 13 142/49 (80) 100 04/03/19 08:00 98.0 55 12 120/51 (74) 100 04/03/19 08:00 35 04/03/19 08:00 Mechanical Ventilator 04/03/19 08:00 54 04/03/19 07:29 60 13 35 35 04/03/19 07:00 54 16 134/92 (106) 100 04/03/19 06:00 54 16 122/55 (77) 100 04/03/19 05:11 58 16 35 04/03/19 05:00 57 17 122/45 (70) 100 04/03/19 04:00 66 04/03/19 04:00 35 04/03/19 04:00 97.6 56 16 114/52 (72) 100 04/03/19 04:00 Mechanical Ventilator 04/03/19 03:30 71 18 35 04/03/19 03:00 63 16 124/80 (95) 100 04/03/19 02:00 56 16 113/36 (61) 100 04/03/19 01:00 58 17 118/43 (68) 100 04/03/19 00:40 66 18 35 04/03/19 00:00 97.6 72 16 117/47 (70) 100 04/03/19 00:00 Mechanical Ventilator 04/03/19 00:00 60 04/02/19 23:22 65 17 35 04/02/19 23:00 97 14 98/77 (84) 100 04/02/19 22:54 79 04/02/19 22:00 62 17 119/47 (71) 100 04/02/19 21:03 60 18 35 04/02/19 21:00 56 15 107/40 (62) 100 04/02/19 20:00 97.7 70 14 119/43 (68) 100 04/02/19 20:00 Mechanical Ventilator 04/02/19 20:00 35 04/02/19 19:56 58 16 35 04/02/19 19:13 109 04/02/19 19:00 83 19 102/39 (60) 100 04/02/19 18:00 68 16 135/74 (94) 100 04/02/19 17:00 96.9 59 15 140/63 (88) 100 04/02/19 16:58 61 17 35 04/02/19 16:00 59 16 134/48 (76) 100 04/02/19 16:00 35 04/02/19 16:00 Mechanical Ventilator 04/02/19 15:58 66 04/02/19 15:08 63 17 35 04/02/19 15:00 71 16 163/56 (91) 100 04/02/19 14:00 59 16 133/41 (71) 100 04/02/19 13:16 74 18 35 04/02/19 13:00 58 16 118/40 (66) 100 04/02/19 12:27 101 04/02/19 12:00 35 04/02/19 12:00 103 16 139/51 (80) 100 04/02/19 12:00 Mechanical Ventilator Height (Feet): 6 Height (Inches): 6.00 Weight (Pounds): 186 General Appearance: no acute distress HEENT: mucous membranes moist, other - poor dentition Respiratory/Chest: lungs clear Cardiovascular: normal rate, other - R femoral line Abdomen: soft, non tender Extremities: other - edema more in legs Laboratory Tests Test 04/03/19 08:00 White Blood Count 8.3 K/UL (4.8-10.8) Red Blood Count 2.56 M/UL (4.70-6.10) L Hemoglobin 7.2 G/DL (14.2-18.0) L Hematocrit 22.9 % (42.0-52.0) L Mean Corpuscular Volume 89 FL (80-99) Mean Corpuscular Hemoglobin 28.0 PG (27.0-31.0) Mean Corpuscular Hemoglobin Concent 31.4 G/DL (32.0-36.0) L Red Cell Distribution Width 15.8 % (11.6-14.8) H Platelet Count 223 K/UL (150-450) Mean Platelet Volume 4.9 FL (6.5-10.1) L Neutrophils (%) (Auto) % (45.0-75.0) Lymphocytes (%) (Auto) % (20.0-45.0) Monocytes (%) (Auto) % (1.0-10.0) Eosinophils (%) (Auto) % (0.0-3.0) Basophils (%) (Auto) % (0.0-2.0) Differential Total Cells Counted 100 Neutrophils % (Manual) 57 % (45-75) Lymphocytes % (Manual) 33 % (20-45) Monocytes % (Manual) 9 % (1-10) Eosinophils % (Manual) 1 % (0-3) Basophils % (Manual) 0 % (0-2) Band Neutrophils 0 % (0-8) Platelet Estimate Adequate Platelet Morphology Normal Hypochromasia 1+ Anisocytosis 1+ Sodium Level 138 MMOL/L (136-145) Potassium Level 3.5 MMOL/L (3.5-5.1) Chloride Level 107 MMOL/L (98-107) Carbon Dioxide Level 26 MMOL/L (21-32) Anion Gap 5 mmol/L (5-15) Blood Urea Nitrogen 13 mg/dL (7-18) Creatinine 0.9 MG/DL (0.55-1.30) Estimat Glomerular Filtration Rate mL/min (>60) Glucose Level 82 MG/DL (74-106) Calcium Level 8.1 MG/DL (8.5-10.1) L Magnesium Level 1.8 MG/DL (1.8-2.4) Pro-B-Type Natriuretic Peptide 3719 pg/mL (0-125) H Current Medications Medications (Trade) Dose Ordered Sig/Vaughn Route PRN Reason Start Time Stop Time Status Last Admin Dose Admin Acetaminophen (Tylenol) 650 mg Q4H PRN NG Mild Pain/Temp > 100.5 03/30/19 18:42 04/29/19 18:41 Ascorbic Acid (Vitamin C) 250 mg EVERY 12 HOURS NG 03/31/19 21:00 04/26/19 17:59 04/03/19 08:39 Chlorhexidine Gluconate (Michelle-Hex 2%) 1 applic DAILY@1999 TOPIC 03/27/19 20:00 04/03/19 19:59 04/02/19 19:45 Chlorhexidine Gluconate (Michelle-Hex 2%) 1 applic DAILY@1999 TOPIC 04/03/19 20:00 05/03/19 19:59 Fentanyl Citrate 1000 mcg/Sodium Chloride 100 ml @ 0 mls/hr Q24H IV 03/28/19 14:45 04/04/19 14:44 03/28/19 20:47 Heparin Sodium/ Sodium Chloride (Heparin 1000 units/500ml Premix) 1,000 unit ONCE IV 04/03/19 09:00 04/03/19 23:00 Levothyroxine Sodium (Synthroid) 100 mcg DAILY@0630 NG 03/31/19 06:30 04/30/19 06:29 04/03/19 06:00 Lidocaine HCl (Xylocaine 1% 30ml) 30 ml ONCE INJ 04/03/19 09:00 04/03/19 23:00 Midazolam HCl (Versed 2mg/2ml vial) 1 mg Q2H PRN IVP For Anxiety 03/28/19 14:45 04/27/19 14:44 Midodrine (Pro-Amatine) 5 mg EVERY 8 HOURS NG 03/31/19 14:30 04/27/19 17:59 04/03/19 05:59 Norepinephrine Bitartrate 8 mg/ Dextrose 500 ml @ 0 mls/hr Q24H IV 04/01/19 16:30 05/01/19 16:29 04/01/19 16:33 Pantoprazole (Protonix) 40 mg DAILY IVP 03/27/19 09:00 04/26/19 08:59 04/03/19 08:39 Piperacillin Sod/ Tazobactam Sod 3.375 gm/Sodium Chloride 110 ml @ 27.5 mls/hr EVERY 8 HOURS IVPB 03/26/19 22:00 04/04/19 21:59 04/03/19 06:00 Rivaroxaban (Xarelto) 20 mg QPM NG 03/31/19 16:30 04/29/19 16:29 04/02/19 17:29 Sodium Hypochlorite (Dakin's Quarter Strength) 1 applic EVERY 12 HOURS TOPIC 04/01/19 21:00 04/27/19 00:00 04/03/19 08:40 Vancomycin HCl (Vanco rx to dose) 1 ea DAILY PRN MISC Per rx protocol 03/27/19 16:00 04/26/19 15:59 Vancomycin HCl 1 gm/Dextrose 275 ml @ 183.708 mls/hr Q24H IVPB 04/01/19 23:00 04/06/19 22:59 04/02/19 22:54 Zinc Sulfate (Zinc Sulfate) 220 mg DAILY NG 03/31/19 09:00 04/27/19 08:59 04/03/19 08:39 Isaac Martinez MD Apr 03, 2019 11:59
--- NOTE | 2019-04-03 12:46 | NUR ---
NURSE NOTES: Pt turned and repositioned. No acute distress. HR sometimes in the 40s. Will continue to monitor.
--- NOTE | 2019-04-03 13:13 | Pulmonology Progress Note ---
Assessment/Plan Assessment/Plan (1) Severe sepsis (2) Respiratory distress (3) Dyspnea (4) Hypoxia (5) Decubitus skin ulcer (6) Lung mass (7) Multifocal pneumonia (8) Staphylococcus aureus bacteremia (9) MRSA bacteremia (10) Psoas abscess (11) Hypothyroidism Assessment/Plan: extubate with food weaning parameters PRN HHN's Monitor volumes and renal function, PRN Lasix Vanco/Zosyn (D5) per ID Continue Synthroid F/U cards recs Xarelto per heme Monitor HH, F/U GI recs, F/U EGD path, ? COLO swallow eval Subjective ROS Limited/Unobtainable: Yes Constitutional: Denies: fever Respiratory: Denies: shortness of breath Allergies: Coded Allergies: No Known Allergies (Unverified , 01/18/19) Objective Last 24 Hour Vital Signs Date Time Temp Pulse Resp B/P (MAP) Pulse Ox O2 Delivery O2 Flow Rate FiO2 04/03/19 12:00 Nasal Cannula 3.0 Nasal Cannula 3.0 04/03/19 12:00 3.0 04/03/19 12:00 54 04/03/19 12:00 98.2 55 15 129/51 (77) 100 04/03/19 11:00 71 17 114/50 (71) 99 04/03/19 10:00 59 16 116/51 (72) 99 04/03/19 09:08 100 Nasal Cannula 3.0 32 04/03/19 09:07 Nasal Cannula 3.0 32 04/03/19 09:00 54 13 142/49 (80) 100 04/03/19 08:00 98.0 55 12 120/51 (74) 100 04/03/19 08:00 35 04/03/19 08:00 Mechanical Ventilator 04/03/19 08:00 54 04/03/19 07:29 60 13 35 35 04/03/19 07:00 54 16 134/92 (106) 100 04/03/19 06:00 54 16 122/55 (77) 100 04/03/19 05:11 58 16 35 04/03/19 05:00 57 17 122/45 (70) 100 04/03/19 04:00 66 04/03/19 04:00 35 04/03/19 04:00 97.6 56 16 114/52 (72) 100 04/03/19 04:00 Mechanical Ventilator 04/03/19 03:30 71 18 35 04/03/19 03:00 63 16 124/80 (95) 100 04/03/19 02:00 56 16 113/36 (61) 100 04/03/19 01:00 58 17 118/43 (68) 100 04/03/19 00:40 66 18 35 04/03/19 00:00 97.6 72 16 117/47 (70) 100 04/03/19 00:00 Mechanical Ventilator 04/03/19 00:00 60 04/02/19 23:22 65 17 35 04/02/19 23:00 97 14 98/77 (84) 100 04/02/19 22:54 79 04/02/19 22:00 62 17 119/47 (71) 100 04/02/19 21:03 60 18 35 04/02/19 21:00 56 15 107/40 (62) 100 04/02/19 20:00 97.7 70 14 119/43 (68) 100 04/02/19 20:00 Mechanical Ventilator 04/02/19 20:00 35 04/02/19 19:56 58 16 35 04/02/19 19:13 109 04/02/19 19:00 83 19 102/39 (60) 100 04/02/19 18:00 68 16 135/74 (94) 100 04/02/19 17:00 96.9 59 15 140/63 (88) 100 04/02/19 16:58 61 17 35 04/02/19 16:00 59 16 134/48 (76) 100 04/02/19 16:00 35 04/02/19 16:00 Mechanical Ventilator 04/02/19 15:58 66 04/02/19 15:08 63 17 35 04/02/19 15:00 71 16 163/56 (91) 100 04/02/19 14:00 59 16 133/41 (71) 100 04/02/19 13:16 74 18 35 Intake and Output 04/02/19 04/03/19 19:00 07:00 Intake Total 1120.0 ml 1302.5 ml Output Total 600 ml 605 ml Balance 520.0 ml 697.5 ml IV Total 220.0 ml 612.5 ml Tube Feeding 720 ml 540 ml Other 180 ml 150 ml Output Urine Total 600 ml 605 ml # Bowel Movements 2 Objective alert General Appearance: no acute distress HEENT: atraumatic Respiratory/Chest: lungs clear Cardiovascular: normal rate Laboratory Tests 04/03/19 08:00: White Blood Count 8.3, Red Blood Count 2.56L, Hemoglobin 7.2L, Hematocrit 22.9L , Mean Corpuscular Volume 89, Mean Corpuscular Hemoglobin 28.0, Mean Corpuscular Hemoglobin Concent 31.4L, Red Cell Distribution Width 15.8H, Platelet Count 223, Mean Platelet Volume 4.9L, Neutrophils (%) (Auto) , Lymphocytes (%) (Auto) , Monocytes (%) (Auto) , Eosinophils (%) (Auto) , Basophils (%) (Auto) , Differential Total Cells Counted 100, Neutrophils % ( Manual) 57, Lymphocytes % (Manual) 33, Monocytes % (Manual) 9, Eosinophils % ( Manual) 1, Basophils % (Manual) 0, Band Neutrophils 0, Platelet Estimate Adequate, Platelet Morphology Normal, Hypochromasia 1+, Anisocytosis 1+, Sodium Level 138, Potassium Level 3.5, Chloride Level 107, Carbon Dioxide Level 26, Anion Gap 5, Blood Urea Nitrogen 13, Creatinine 0.9, Estimat Glomerular Filtration Rate , Glucose Level 82, Calcium Level 8.1L, Magnesium Level 1.8, Pro -B-Type Natriuretic Peptide 3719H Current Medications Medications (Trade) Dose Ordered Sig/Vaughn Route PRN Reason Start Time Stop Time Status Last Admin Dose Admin Acetaminophen (Tylenol) 650 mg Q4H PRN NG Mild Pain/Temp > 100.5 03/30/19 18:42 04/29/19 18:41 Ascorbic Acid (Vitamin C) 250 mg EVERY 12 HOURS NG 03/31/19 21:00 04/26/19 17:59 04/03/19 08:39 Chlorhexidine Gluconate (Michelle-Hex 2%) 1 applic DAILY@1999 TOPIC 03/27/19 20:00 04/03/19 19:59 04/02/19 19:45 Chlorhexidine Gluconate (Michelle-Hex 2%) 1 applic DAILY@1999 TOPIC 04/03/19 20:00 05/03/19 19:59 Fentanyl Citrate 1000 mcg/Sodium Chloride 100 ml @ 0 mls/hr Q24H IV 03/28/19 14:45 04/04/19 14:44 03/28/19 20:47 Heparin Sodium/ Sodium Chloride (Heparin 1000 units/500ml Premix) 1,000 unit ONCE IV 04/03/19 09:00 04/03/19 23:00 Levothyroxine Sodium (Synthroid) 100 mcg DAILY@0630 NG 03/31/19 06:30 04/30/19 06:29 04/03/19 06:00 Lidocaine HCl (Xylocaine 1% 30ml) 30 ml ONCE INJ 04/03/19 09:00 04/03/19 23:00 Midazolam HCl (Versed 2mg/2ml vial) 1 mg Q2H PRN IVP For Anxiety 03/28/19 14:45 04/27/19 14:44 Midodrine (Pro-Amatine) 5 mg EVERY 8 HOURS NG 03/31/19 14:30 04/27/19 17:59 04/03/19 05:59 Norepinephrine Bitartrate 8 mg/ Dextrose 500 ml @ 0 mls/hr Q24H IV 04/01/19 16:30 05/01/19 16:29 04/01/19 16:33 Pantoprazole (Protonix) 40 mg DAILY IVP 03/27/19 09:00 04/26/19 08:59 04/03/19 08:39 Piperacillin Sod/ Tazobactam Sod 3.375 gm/Sodium Chloride 110 ml @ 27.5 mls/hr EVERY 8 HOURS IVPB 03/26/19 22:00 04/04/19 21:59 04/03/19 06:00 Rivaroxaban (Xarelto) 20 mg QPM NG 03/31/19 16:30 04/29/19 16:29 04/02/19 17:29 Sodium Hypochlorite (Dakin's Quarter Strength) 1 applic EVERY 12 HOURS TOPIC 04/01/19 21:00 04/27/19 00:00 04/03/19 08:40 Vancomycin HCl (Vanco rx to dose) 1 ea DAILY PRN MISC Per rx protocol 03/27/19 16:00 04/26/19 15:59 Vancomycin HCl 1 gm/Dextrose 275 ml @ 183.708 mls/hr Q24H IVPB 04/01/19 23:00 04/06/19 22:59 04/02/19 22:54 Zinc Sulfate (Zinc Sulfate) 220 mg DAILY NG 03/31/19 09:00 04/27/19 08:59 04/03/19 08:39 Barry Najera MD Apr 03, 2019 13:13
--- NOTE | 2019-04-03 14:35 | NUR ---
NURSE NOTES: Radiology here to place PICC. VSS. Will continue to monitor.
[2019-04-03] MEDS: fentaNYL Citrate 1000 MCG in NS 100ml IV SCH (14:45)
[2019-04-03] MEDS: NOREPINEPHRINE BITARTRATE IV SCH (15:08)
[2019-04-03] MEDS: D5W IV SCH (15:08)
--- NOTE | 2019-04-03 15:27 | NUR ---
NOTES: PATIENT REFERRED FOR SWALLOW EVAL, JUST EXTUBATED (03/26-04/03) TODAY. WAS SEEN 01/18/19 AND HAD DYSPHAGIA AND WAS PLACED ON A PUREED AND NECTAR THICK LIQUID DIET AND NEEDED A MOD BARIUM SWALLOW BUT NOT COMPLETED DUE TO TIME CONSTRAINTS. (NOT SURE IF HE HAD A F/UP STUDY AN OP). WILL ASSESS TOMORROW VIA BEDSIDE EVAL AND WILL NEED A MOD BARIUM SWALLOW STUDY TO R/O SILENT ASP GIVEN H/O DEMENTIA/CVA/SZ D/O AND CURRENT PNA. D/W CELINE REID
--- NOTE | 2019-04-03 15:33 | Cardiac Electrophysiology PN ---
Assessment/Plan Assessment/Plan 1. S/P Septic shock. Blood Cx positive for GP cocci. Off Levophed . On Midodrine as well as IV antibiotics. EF 60 to 65 percent with mild diastolic dysfunction. 2. Bradycardia. DC Midodrine 2. S/P Respiratory failure, likely due to pneumonia. Extubated. The patient is on broad-spectrum IV antibiotics. 3. Mild diastolic dysfunction with elevated BNP. 4. 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 EGD showed gastritis. Swallow eval pending Objective Last 24 Hour Vital Signs Date Time Temp Pulse Resp B/P (MAP) Pulse Ox O2 Delivery O2 Flow Rate FiO2 04/03/19 15:08 138/62 04/03/19 15:00 56 14 123/51 (75) 100 04/03/19 14:00 56 14 138/62 (87) 100 04/03/19 13:00 53 17 115/50 (71) 100 04/03/19 12:00 Nasal Cannula 3.0 Nasal Cannula 3.0 04/03/19 12:00 3.0 04/03/19 12:00 54 04/03/19 12:00 98.2 55 15 129/51 (77) 100 04/03/19 11:00 71 17 114/50 (71) 99 04/03/19 10:00 59 16 116/51 (72) 99 04/03/19 09:08 100 Nasal Cannula 3.0 32 04/03/19 09:07 Nasal Cannula 3.0 32 04/03/19 09:00 54 13 142/49 (80) 100 04/03/19 08:00 98.0 55 12 120/51 (74) 100 04/03/19 08:00 35 04/03/19 08:00 Mechanical Ventilator 04/03/19 08:00 54 04/03/19 07:29 60 13 35 35 04/03/19 07:00 54 16 134/92 (106) 100 04/03/19 06:00 54 16 122/55 (77) 100 04/03/19 05:11 58 16 35 04/03/19 05:00 57 17 122/45 (70) 100 04/03/19 04:00 66 04/03/19 04:00 35 04/03/19 04:00 97.6 56 16 114/52 (72) 100 04/03/19 04:00 Mechanical Ventilator 04/03/19 03:30 71 18 35 04/03/19 03:00 63 16 124/80 (95) 100 04/03/19 02:00 56 16 113/36 (61) 100 04/03/19 01:00 58 17 118/43 (68) 100 04/03/19 00:40 66 18 35 04/03/19 00:00 97.6 72 16 117/47 (70) 100 04/03/19 00:00 Mechanical Ventilator 04/03/19 00:00 60 04/02/19 23:22 65 17 35 04/02/19 23:00 97 14 98/77 (84) 100 04/02/19 22:54 79 04/02/19 22:00 62 17 119/47 (71) 100 04/02/19 21:03 60 18 35 04/02/19 21:00 56 15 107/40 (62) 100 04/02/19 20:00 97.7 70 14 119/43 (68) 100 04/02/19 20:00 Mechanical Ventilator 04/02/19 20:00 35 04/02/19 19:56 58 16 35 04/02/19 19:13 109 04/02/19 19:00 83 19 102/39 (60) 100 04/02/19 18:00 68 16 135/74 (94) 100 04/02/19 17:00 96.9 59 15 140/63 (88) 100 04/02/19 16:58 61 17 35 04/02/19 16:00 59 16 134/48 (76) 100 04/02/19 16:00 35 04/02/19 16:00 Mechanical Ventilator 04/02/19 15:58 66 Intake and Output 04/02/19 04/03/19 19:00 07:00 Intake Total 1120.0 ml 1302.5 ml Output Total 600 ml 605 ml Balance 520.0 ml 697.5 ml IV Total 220.0 ml 612.5 ml Tube Feeding 720 ml 540 ml Other 180 ml 150 ml Output Urine Total 600 ml 605 ml # Bowel Movements 2 Laboratory Tests Test 04/03/19 08:00 White Blood Count 8.3 K/UL (4.8-10.8) Red Blood Count 2.56 M/UL (4.70-6.10) L Hemoglobin 7.2 G/DL (14.2-18.0) L Hematocrit 22.9 % (42.0-52.0) L Mean Corpuscular Volume 89 FL (80-99) Mean Corpuscular Hemoglobin 28.0 PG (27.0-31.0) Mean Corpuscular Hemoglobin Concent 31.4 G/DL (32.0-36.0) L Red Cell Distribution Width 15.8 % (11.6-14.8) H Platelet Count 223 K/UL (150-450) Mean Platelet Volume 4.9 FL (6.5-10.1) L Neutrophils (%) (Auto) % (45.0-75.0) Lymphocytes (%) (Auto) % (20.0-45.0) Monocytes (%) (Auto) % (1.0-10.0) Eosinophils (%) (Auto) % (0.0-3.0) Basophils (%) (Auto) % (0.0-2.0) Differential Total Cells Counted 100 Neutrophils % (Manual) 57 % (45-75) Lymphocytes % (Manual) 33 % (20-45) Monocytes % (Manual) 9 % (1-10) Eosinophils % (Manual) 1 % (0-3) Basophils % (Manual) 0 % (0-2) Band Neutrophils 0 % (0-8) Platelet Estimate Adequate Platelet Morphology Normal Hypochromasia 1+ Anisocytosis 1+ Sodium Level 138 MMOL/L (136-145) Potassium Level 3.5 MMOL/L (3.5-5.1) Chloride Level 107 MMOL/L (98-107) Carbon Dioxide Level 26 MMOL/L (21-32) Anion Gap 5 mmol/L (5-15) Blood Urea Nitrogen 13 mg/dL (7-18) Creatinine 0.9 MG/DL (0.55-1.30) Estimat Glomerular Filtration Rate mL/min (>60) Glucose Level 82 MG/DL (74-106) Calcium Level 8.1 MG/DL (8.5-10.1) L Magnesium Level 1.8 MG/DL (1.8-2.4) Pro-B-Type Natriuretic Peptide 3719 pg/mL (0-125) H Objective HEAD AND NECK: No JVD LUNGS: Coarse rhonchi. CARDIOVASCULAR:Regular S1 and S2 with no gallop or murmur. ABDOMEN: Soft. EXTREMITIES: No pitting edema. Christian Vargas MD Apr 03, 2019 15:33
--- NOTE | 2019-04-03 15:37 | Surgery Progress Note ---
Surgery Progress Note Subjective Additional Comments no acute events eaxm unchanged prognosis guarded Objective Last 24 Hour Vital Signs Date Time Temp Pulse Resp B/P (MAP) Pulse Ox O2 Delivery O2 Flow Rate FiO2 04/03/19 15:08 138/62 04/03/19 15:00 56 14 123/51 (75) 100 04/03/19 14:00 56 14 138/62 (87) 100 04/03/19 13:00 53 17 115/50 (71) 100 04/03/19 12:00 Nasal Cannula 3.0 Nasal Cannula 3.0 04/03/19 12:00 3.0 04/03/19 12:00 54 04/03/19 12:00 98.2 55 15 129/51 (77) 100 04/03/19 11:00 71 17 114/50 (71) 99 04/03/19 10:00 59 16 116/51 (72) 99 04/03/19 09:08 100 Nasal Cannula 3.0 32 04/03/19 09:07 Nasal Cannula 3.0 32 04/03/19 09:00 54 13 142/49 (80) 100 04/03/19 08:00 98.0 55 12 120/51 (74) 100 04/03/19 08:00 35 04/03/19 08:00 Mechanical Ventilator 04/03/19 08:00 54 04/03/19 07:29 60 13 35 35 04/03/19 07:00 54 16 134/92 (106) 100 04/03/19 06:00 54 16 122/55 (77) 100 04/03/19 05:11 58 16 35 04/03/19 05:00 57 17 122/45 (70) 100 04/03/19 04:00 66 04/03/19 04:00 35 04/03/19 04:00 97.6 56 16 114/52 (72) 100 04/03/19 04:00 Mechanical Ventilator 04/03/19 03:30 71 18 35 04/03/19 03:00 63 16 124/80 (95) 100 04/03/19 02:00 56 16 113/36 (61) 100 04/03/19 01:00 58 17 118/43 (68) 100 04/03/19 00:40 66 18 35 04/03/19 00:00 97.6 72 16 117/47 (70) 100 04/03/19 00:00 Mechanical Ventilator 04/03/19 00:00 60 04/02/19 23:22 65 17 35 04/02/19 23:00 97 14 98/77 (84) 100 04/02/19 22:54 79 04/02/19 22:00 62 17 119/47 (71) 100 04/02/19 21:03 60 18 35 04/02/19 21:00 56 15 107/40 (62) 100 04/02/19 20:00 97.7 70 14 119/43 (68) 100 04/02/19 20:00 Mechanical Ventilator 04/02/19 20:00 35 04/02/19 19:56 58 16 35 04/02/19 19:13 109 04/02/19 19:00 83 19 102/39 (60) 100 04/02/19 18:00 68 16 135/74 (94) 100 04/02/19 17:00 96.9 59 15 140/63 (88) 100 04/02/19 16:58 61 17 35 04/02/19 16:00 59 16 134/48 (76) 100 04/02/19 16:00 35 04/02/19 16:00 Mechanical Ventilator 04/02/19 15:58 66 I&O Intake and Output 04/02/19 04/03/19 19:00 07:00 Intake Total 1120.0 ml 1302.5 ml Output Total 600 ml 605 ml Balance 520.0 ml 697.5 ml IV Total 220.0 ml 612.5 ml Tube Feeding 720 ml 540 ml Other 180 ml 150 ml Output Urine Total 600 ml 605 ml # Bowel Movements 2 Dressing: saturated Wound: other Drains: other Cardiovascular: RSR Respiratory: decreased breath sounds Abdomen: soft, present bowel sounds Extremities: no cyanosis Laboratory Tests Test 04/03/19 08:00 White Blood Count 8.3 K/UL (4.8-10.8) Red Blood Count 2.56 M/UL (4.70-6.10) L Hemoglobin 7.2 G/DL (14.2-18.0) L Hematocrit 22.9 % (42.0-52.0) L Mean Corpuscular Volume 89 FL (80-99) Mean Corpuscular Hemoglobin 28.0 PG (27.0-31.0) Mean Corpuscular Hemoglobin Concent 31.4 G/DL (32.0-36.0) L Red Cell Distribution Width 15.8 % (11.6-14.8) H Platelet Count 223 K/UL (150-450) Mean Platelet Volume 4.9 FL (6.5-10.1) L Neutrophils (%) (Auto) % (45.0-75.0) Lymphocytes (%) (Auto) % (20.0-45.0) Monocytes (%) (Auto) % (1.0-10.0) Eosinophils (%) (Auto) % (0.0-3.0) Basophils (%) (Auto) % (0.0-2.0) Differential Total Cells Counted 100 Neutrophils % (Manual) 57 % (45-75) Lymphocytes % (Manual) 33 % (20-45) Monocytes % (Manual) 9 % (1-10) Eosinophils % (Manual) 1 % (0-3) Basophils % (Manual) 0 % (0-2) Band Neutrophils 0 % (0-8) Platelet Estimate Adequate Platelet Morphology Normal Hypochromasia 1+ Anisocytosis 1+ Sodium Level 138 MMOL/L (136-145) Potassium Level 3.5 MMOL/L (3.5-5.1) Chloride Level 107 MMOL/L (98-107) Carbon Dioxide Level 26 MMOL/L (21-32) Anion Gap 5 mmol/L (5-15) Blood Urea Nitrogen 13 mg/dL (7-18) Creatinine 0.9 MG/DL (0.55-1.30) Estimat Glomerular Filtration Rate mL/min (>60) Glucose Level 82 MG/DL (74-106) Calcium Level 8.1 MG/DL (8.5-10.1) L Magnesium Level 1.8 MG/DL (1.8-2.4) Pro-B-Type Natriuretic Peptide 3719 pg/mL (0-125) H Plan Problems: (1) Respiratory distress (2) Decubitus skin ulcer Assessment & Plan: Pt presented on admission with multiple pressure injuries and ulcerations 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 Base of wound has mixed slough and necrosis. Edges adherent and dark . Periwound indurated with darker skin tone. Pt complained of pain when minimally palpated. Mild odor noted Full thickness ulcer R tibia. Base of wound has slough. Edges adherent and flat ,Periwound without erythema or fluctuance. Stable dry eschar noted to R hallux. edges are dark but adherent to base of wound. Periwound dark without erythema or fluctuance Stable dry eschar noted to R st metatarsal head. Periwound pale without fluctuance Stable dry eschar noted to dorsal aspects of R 3rd and 4th metatarsals. Full thickness ulcer lateral R 5th metatarsal. base of wound with some areas of necrosis and edges are black . No odor or exudate noted Stable dry eschar R heel . Periwound fluctuant without erythema. Pt complained of pain when minimally palpated. Stable dry eschar noted to dorso/flexor L foot. Periwound without erythema , induration or fluctuance Reabsorbing blood blister noted to medial L foot. Periwound without erythema or fluctuance L heel is dry and blanchable with historical scarring from previous wounds .Dry flaky skin noted to both feet. Tx.Plan: Cleanse sacral wound with Dakin's 0.125% stefani. Loose pack wound with Dakin's moist Kerlix. Apply Moisture Barrier paste to borders and cover with Optifoam drsg. Twice daily and prn. Cleanse Wound R tibia with Saline. Apply Therahoney. Cover with Optifoam drsg. Change every 3 days and prn.Apply Cavilon Skin BArrier to both heels. Cover each heel with Optifoam drsg. change every 7 days and prn APM/PHIL mattress overlay. Reposition at least every 2hours or as tolerated. Off-load heels with pillow. (3) Severe sepsis Assessment & Plan: leukocytosis resolved anemia lactic acidosis resolved improving septic MRSA bacteremia labs noted imaging noted Cont IV abx as per ID feeds wounds evaluated and care plan as above labs noted f/u cxr will follow with recs thank you DAILY ESTIMATED NEEDS: Needs based on Wound, critical care 78.6kg 25-30 kcals/kg [id number] total kcals 1.25-2 g protein/kg 98-157 g total protein Fluid per MD, on lasix NUTRITION DIAGNOSIS: 1) Increased kcal/ pro needs r/t wound healing as evidenced by full thickness sacral wound, pending updated eval. 2) Swallowing difficulty r/t respiratory status as evidenced by s/p RR, pt now orally intubated, on pressor support. CURRENT DIET: Regular-> pt now intubated ENTERAL NUTRITION RECOMMENDATIONS: Osmolite 1.5 @55ml/hr x24 hrs + Prosource BID to provide 1320ml, 1980 kcal, 83g + 22g pro, 1006ml free H2O - WHEN HEMODYNAMICALLY STABLE, rec to obtain GI access, initiate non oral feeds to meed est nutritional needs - Start Osmolite 1.5 @25ml/hr for 6 hrs, advance as tolerated 10ml/hr q4-6 hrs to goal. - Flush per MD/ HOB over 30 degrees ADDITIONAL RECOMMENDATIONS: 1) Obtain a CALIBRATED bed wt 2) Feed w/ hemodynamic stability -> currently on pressors x2 3) WOUND CARE: Add BRUCE BID w/ GI access Add VIT C 250mg BID Add ZnSO4 220mg daily x10 days 4) On lasix, monitor lytes daily 5) PIGMENT PRESSER eval upon extubation (4) Dyspnea (5) Hypoxia Tawanda Alfaro Apr 03, 2019 15:37
[2019-04-03] MEDS: Xarelto 10mg tab NG SCH (15:53)
--- NOTE | 2019-04-03 15:53 | NUR ---
NURSE NOTES: Dr Vargas here to see pt. Dr sheldon rg because HR is in 40s. Will continue to monitor.
--- NOTE | 2019-04-03 16:18 | Hematology/Onc Progress Note ---
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 Favor scarring, but the possibility of neoplasm cannot be ruled out. 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, r/o mets --> patient is on pressors so hold off on diagnosis until more stable --> at some point will need a tissue diagnosis, as well as further w/u --> given advanced age, hold off on any extensive immediate care --> on xarelto at this time # DVT + Pulmonary embolism history could be related to mass/malignancy * HYPERCOAGULABLE DISORDER* --> on xarelto, okay to dc to snf on this --> Once peg placed, NOW restarted xarelto --> xarelto hto continue # Thrombocytopenia likely due to infection --> trend 203-->124-->121-->100k-->121k-->179k --> smear reviewed and no schistocytes noted # Leukocytosis is 2/2 septic shock with uti --> has been started on abx (vanc/zosyn) --> further w/u for altered mental status --> wbc 14-->19.7-->21-->9.6-->9.3 # Iron Overload --> Ferrtin 1327 continue to monitor consider chelation therapy prior to blood tx. --> on iv iron # Renal insufficiency --> as per renal recs # Respiratory failure is on vent --> sbp per pulm # Hypotension on fluids now better --> abx and pressors # DVT ppx --> xarelto okay to continue if plt>75k The timing of this note does not necessarily reflect the time of the patient was seen. GREATLY APPRECIATE CONSULTATION. Subjective HEENT: Reports: no symptoms, eye pain, blurred vision, tearing, double vision, ear pain, ear discharge, nose pain, nose congestion, throat pain, throat swelling, mouth pain, mouth swelling, other Cardiovascular: Denies: no symptoms, chest pain, edema, irregular heart rate, lightheadedness, palpitations, syncope, other Respiratory: Denies: no symptoms, cough, shortness of breath, SOB with excertion, SOB at rest, sputum, wheezing, other Gastrointestinal/Abdominal: Denies: no symptoms, abdomen distended, abdominal pain, black stools, tarry stools, blood in stool, constipated, diarrhea, difficulty swallowing, nausea, poor appetite, poor fluid intake, rectal bleeding , vomiting, other Genitourinary: Denies: no symptoms, burning, discharge, frequency, flank pain, hematuria, incontinence, pain, urgency, other Neurologic/Psychiatric: Denies: no symptoms, anxiety, depressed, emotional problems, headache, numbness, paresthesia, pre-existing deficit, seizure, tingling, tremors, weakness, other Endocrine: Denies: no symptoms, excessive sweating, flushing, intolerance to cold, intolerance to heat, increased hunger, increased thirst, increased urine, unexplained weight gain, unexplained weight loss, other Allergies: Coded Allergies: No Known Allergies (Unverified , 01/18/19) Subjective 03/28: labs have been reviewed, hgb is less than 7, hgb 6.5, and prbc that has been ordered 03/29: in icu, on abx, no signs of distress, blood tx completed, labs reviewed 03/30: hgb is better, remains in the icu, on pressors levo, otherwise gtf started 03/31: icu, hgb 6.8, blood tx ordered, on rivaroxaban, vent, ng 04/02: on ng/vent, remains in the icu, recovering well s/p transfu, rivarexaban continued 04/03: on xarelto, is off of midronine given low hr Objective Objective Current Medications Medications (Trade) Dose Ordered Sig/Vaughn Route PRN Reason Start Time Stop Time Status Last Admin Dose Admin Acetaminophen (Tylenol) 650 mg Q4H PRN NG Mild Pain/Temp > 100.5 03/30/19 18:42 04/29/19 18:41 Ascorbic Acid (Vitamin C) 250 mg EVERY 12 HOURS NG 03/31/19 21:00 04/26/19 17:59 04/03/19 08:39 Chlorhexidine Gluconate (Michelle-Hex 2%) 1 applic DAILY@1999 TOPIC 03/27/19 20:00 04/03/19 19:59 04/02/19 19:45 Chlorhexidine Gluconate (Michelle-Hex 2%) 1 applic DAILY@1999 TOPIC 04/03/19 20:00 05/03/19 19:59 Fentanyl Citrate 1000 mcg/Sodium Chloride 100 ml @ 0 mls/hr Q24H IV 03/28/19 14:45 04/04/19 14:44 03/28/19 20:47 Heparin Sodium/ Sodium Chloride (Heparin 1000 units/500ml Premix) 1,000 unit ONCE IV 04/03/19 09:00 04/03/19 23:00 Levothyroxine Sodium (Synthroid) 100 mcg DAILY@0630 NG 03/31/19 06:30 04/30/19 06:29 04/03/19 06:00 Lidocaine HCl (Xylocaine 1% 30ml) 30 ml ONCE INJ 04/03/19 09:00 04/03/19 23:00 Midazolam HCl (Versed 2mg/2ml vial) 1 mg Q2H PRN IVP For Anxiety 03/28/19 14:45 04/27/19 14:44 Norepinephrine Bitartrate 8 mg/ Dextrose 500 ml @ 0 mls/hr Q24H IV 04/01/19 16:30 05/01/19 16:29 04/01/19 16:33 Pantoprazole (Protonix) 40 mg DAILY IVP 03/27/19 09:00 04/26/19 08:59 04/03/19 08:39 Piperacillin Sod/ Tazobactam Sod 3.375 gm/Sodium Chloride 110 ml @ 27.5 mls/hr EVERY 8 HOURS IVPB 03/26/19 22:00 04/04/19 21:59 04/03/19 15:19 Rivaroxaban (Xarelto) 20 mg QPM NG 03/31/19 16:30 04/29/19 16:29 04/02/19 17:29 Sodium Hypochlorite (Dakin's Quarter Strength) 1 applic EVERY 12 HOURS TOPIC 04/01/19 21:00 04/27/19 00:00 04/03/19 08:40 Vancomycin HCl (Vanco rx to dose) 1 ea DAILY PRN MISC Per rx protocol 03/27/19 16:00 04/26/19 15:59 Vancomycin HCl 1 gm/Dextrose 275 ml @ 183.708 mls/hr Q24H IVPB 04/01/19 23:00 04/06/19 22:59 04/02/19 22:54 Zinc Sulfate (Zinc Sulfate) 220 mg DAILY NG 03/31/19 09:00 04/27/19 08:59 04/03/19 08:39 Last 24 Hour Vital Signs Date Time Temp Pulse Resp B/P (MAP) Pulse Ox O2 Delivery O2 Flow Rate FiO2 04/03/19 15:08 138/62 04/03/19 15:00 56 14 123/51 (75) 100 04/03/19 14:00 56 14 138/62 (87) 100 04/03/19 13:00 53 17 115/50 (71) 100 04/03/19 12:00 Nasal Cannula 3.0 Nasal Cannula 3.0 04/03/19 12:00 3.0 04/03/19 12:00 54 04/03/19 12:00 98.2 55 15 129/51 (77) 100 04/03/19 11:00 71 17 114/50 (71) 99 04/03/19 10:00 59 16 116/51 (72) 99 04/03/19 09:08 100 Nasal Cannula 3.0 32 04/03/19 09:07 Nasal Cannula 3.0 32 04/03/19 09:00 54 13 142/49 (80) 100 04/03/19 08:00 98.0 55 12 120/51 (74) 100 04/03/19 08:00 35 04/03/19 08:00 Mechanical Ventilator 04/03/19 08:00 54 04/03/19 07:29 60 13 35 35 04/03/19 07:00 54 16 134/92 (106) 100 04/03/19 06:00 54 16 122/55 (77) 100 04/03/19 05:11 58 16 35 04/03/19 05:00 57 17 122/45 (70) 100 04/03/19 04:00 66 04/03/19 04:00 35 04/03/19 04:00 97.6 56 16 114/52 (72) 100 04/03/19 04:00 Mechanical Ventilator 04/03/19 03:30 71 18 35 04/03/19 03:00 63 16 124/80 (95) 100 04/03/19 02:00 56 16 113/36 (61) 100 04/03/19 01:00 58 17 118/43 (68) 100 04/03/19 00:40 66 18 35 04/03/19 00:00 97.6 72 16 117/47 (70) 100 04/03/19 00:00 Mechanical Ventilator 04/03/19 00:00 60 04/02/19 23:22 65 17 35 04/02/19 23:00 97 14 98/77 (84) 100 04/02/19 22:54 79 04/02/19 22:00 62 17 119/47 (71) 100 04/02/19 21:03 60 18 35 04/02/19 21:00 56 15 107/40 (62) 100 04/02/19 20:00 97.7 70 14 119/43 (68) 100 04/02/19 20:00 Mechanical Ventilator 04/02/19 20:00 35 04/02/19 19:56 58 16 35 04/02/19 19:13 109 04/02/19 19:00 83 19 102/39 (60) 100 04/02/19 18:00 68 16 135/74 (94) 100 04/02/19 17:00 96.9 59 15 140/63 (88) 100 04/02/19 16:58 61 17 35 04/02/19 16:00 59 16 134/48 (76) 100 04/02/19 16:00 35 04/02/19 16:00 Mechanical Ventilator 04/02/19 15:58 66 04/02/19 15:08 63 17 35 04/02/19 15:00 71 16 163/56 (91) 100 04/02/19 14:00 59 16 133/41 (71) 100 04/02/19 13:16 74 18 35 04/02/19 13:00 58 16 118/40 (66) 100 04/02/19 12:27 101 04/02/19 12:00 35 04/02/19 12:00 103 16 139/51 (80) 100 04/02/19 12:00 Mechanical Ventilator 04/02/19 11:25 100 24 35 04/02/19 11:00 102 15 110/61 (77) 100 04/02/19 10:04 63 8 106/49 (68) 100 04/02/19 09:00 68 19 114/64 (81) 100 04/02/19 08:30 94 23 35 04/02/19 08:00 85 04/02/19 08:00 Mechanical Ventilator 04/02/19 08:00 35 04/02/19 08:00 96.7 107 21 112/62 (79) 100 04/02/19 07:29 61 16 35 04/02/19 07:00 107 18 117/63 (81) 100 04/02/19 06:00 110 18 111/56 (74) 100 04/02/19 05:30 98 19 100/42 (61) 100 04/02/19 05:21 85 19 35 04/02/19 05:00 105 20 105/66 (79) 100 04/02/19 04:30 113 18 100/70 (80) 100 04/02/19 04:00 116 04/02/19 04:00 98.7 108 22 94/67 (76) 100 04/02/19 04:00 97/64 04/02/19 04:00 35 04/02/19 04:00 Mechanical Ventilator 04/02/19 03:42 105 21 35 04/02/19 03:30 112 29 142/71 (94) 100 04/02/19 03:00 101/67 04/02/19 03:00 119 26 101/67 (78) 100 04/02/19 02:30 122 26 102/70 (81) 99 04/02/19 02:00 132 26 113/84 (94) 99 04/02/19 02:00 113/84 04/02/19 01:30 124 25 102/68 (79) 94 04/02/19 01:20 109 22 35 04/02/19 01:16 142/70 04/02/19 01:00 126 24 142/70 (94) 94 8/25/19 00:30 116 21 123/98 (106) 100 04/02/19 00:00 35 04/02/19 00:00 113 04/02/19 00:00 125/78 04/02/19 00:00 Mechanical Ventilator 04/02/19 00:00 98.8 116 23 125/78 (94) 100 04/01/19 23:30 131 33 124/75 (91) 97 04/01/19 23:25 149 21 35 04/01/19 23:00 117 31 118/67 (84) 100 04/01/19 23:00 132/87 04/01/19 22:30 97 17 106/46 (66) 91 04/01/19 22:00 119/83 04/01/19 22:00 116 31 119/83 (95) 100 04/01/19 21:30 91 23 126/72 (90) 100 04/01/19 21:18 102 16 35 04/01/19 21:00 115 22 113/60 (77) 100 04/01/19 21:00 113/60 04/01/19 20:45 96 21 123/78 (93) 100 04/01/19 20:30 100 18 126/67 (86) 100 04/01/19 20:15 91 12 114/64 (81) 100 04/01/19 20:00 35 04/01/19 20:00 58 04/01/19 20:00 125/63 04/01/19 20:00 78 7 125/63 (83) 100 04/01/19 20:00 Mechanical Ventilator 04/01/19 19:45 77 12 112/66 (81) 100 04/01/19 19:30 98.5 59 16 124/50 (74) 100 04/01/19 19:15 58 15 122/42 (68) 100 04/01/19 19:10 109 22 35 04/01/19 19:00 58 14 117/41 (66) 100 04/01/19 19:00 117/41 04/01/19 18:45 64 13 118/40 (66) 100 04/01/19 18:30 99 11 108/45 (66) 100 04/01/19 18:15 115 19 138/71 (93) 100 04/01/19 18:00 77 11 107/44 (65) 100 04/01/19 18:00 138/71 8/24/19 17:48 79 12 119/41 (67) 100 04/01/19 17:45 71 12 162/96 (118) 100 04/01/19 17:30 63 2 110/41 (64) 100 04/01/19 17:20 95 20 35 04/01/19 17:15 94 21 133/81 (98) 100 04/01/19 17:00 133/81 04/01/19 17:00 107 27 125/68 (87) 100 04/01/19 16:56 106 28 135/87 (103) 100 04/01/19 16:45 107 30 145/84 (104) 100 04/01/19 16:39 100 23 137/88 (104) 100 04/01/19 16:33 71/35 04/01/19 16:30 103 26 121/100 (107) 100 Intake and Output 04/02/19 04/03/19 19:00 07:00 Intake Total 1120.0 ml 1302.5 ml Output Total 600 ml 605 ml Balance 520.0 ml 697.5 ml IV Total 220.0 ml 612.5 ml Tube Feeding 720 ml 540 ml Other 180 ml 150 ml Output Urine Total 600 ml 605 ml # Bowel Movements 2 Labs Test 04/01/19 04:40 04/01/19 15:15 04/02/19 06:30 04/03/19 08:00 White Blood Count 8.6 K/UL (4.8-10.8) 12.2 K/UL (4.8-10.8) 8.3 K/UL (4.8-10.8) Red Blood Count 2.85 M/UL (4.70-6.10) 2.63 M/UL (4.70-6.10) 2.56 M/UL (4.70-6.10) Hemoglobin 8.1 G/DL (14.2-18.0) 7.6 G/DL (14.2-18.0) 7.2 G/DL (14.2-18.0) Hematocrit 25.4 % (42.0-52.0) 23.5 % (42.0-52.0) 22.9 % (42.0-52.0) Mean Corpuscular Volume 89 FL (80-99) 89 FL (80-99) 89 FL (80-99) Mean Corpuscular Hemoglobin 28.5 PG (27.0-31.0) 28.8 PG (27.0-31.0) 28.0 PG (27.0-31.0) Mean Corpuscular Hemoglobin Concent 32.0 G/DL (32.0-36.0) 32.2 G/DL (32.0-36.0) 31.4 G/DL (32.0-36.0) Red Cell Distribution Width 16.0 % (11.6-14.8) 15.5 % (11.6-14.8) 15.8 % (11.6-14.8) Platelet Count 157 K/UL (150-450) 179 K/UL (150-450) 223 K/UL (150-450) Mean Platelet Volume 5.3 FL (6.5-10.1) 5.1 FL (6.5-10.1) 4.9 FL (6.5-10.1) Neutrophils (%) (Auto) 69.4 % (45.0-75.0) % (45.0-75.0) % (45.0-75.0) Lymphocytes (%) (Auto) 23.8 % (20.0-45.0) % (20.0-45.0) % (20.0-45.0) Monocytes (%) (Auto) 5.4 % (1.0-10.0) % (1.0-10.0) % (1.0-10.0) Eosinophils (%) (Auto) 0.9 % (0.0-3.0) % (0.0-3.0) % (0.0-3.0) Basophils (%) (Auto) 0.5 % (0.0-2.0) % (0.0-2.0) % (0.0-2.0) Vancomycin Level Trough 21.1 ug/mL (5.0-12.0) Differential Total Cells Counted 100 100 Neutrophils % (Manual) 78 % (45-75) 57 % (45-75) Lymphocytes % (Manual) 18 % (20-45) 33 % (20-45) Monocytes % (Manual) 4 % (1-10) 9 % (1-10) Eosinophils % (Manual) 0 % (0-3) 1 % (0-3) Basophils % (Manual) 0 % (0-2) 0 % (0-2) Band Neutrophils 0 % (0-8) 0 % (0-8) Platelet Estimate Adequate Adequate Platelet Morphology Normal Normal Anisocytosis 1+ 1+ Sodium Level 138 MMOL/L (136-145) 138 MMOL/L (136-145) Potassium Level 3.3 MMOL/L (3.5-5.1) 3.5 MMOL/L (3.5-5.1) Chloride Level 107 MMOL/L (98-107) 107 MMOL/L (98-107) Carbon Dioxide Level 24 MMOL/L (21-32) 26 MMOL/L (21-32) Anion Gap 7 mmol/L (5-15) 5 mmol/L (5-15) Blood Urea Nitrogen 13 mg/dL (7-18) 13 mg/dL (7-18) Creatinine 1.0 MG/DL (0.55-1.30) 0.9 MG/DL (0.55-1.30) Estimat Glomerular Filtration Rate mL/min (>60) mL/min (>60) Glucose Level 174 MG/DL (74-106) 82 MG/DL (74-106) Calcium Level 7.9 MG/DL (8.5-10.1) 8.1 MG/DL (8.5-10.1) Magnesium Level 1.6 MG/DL (1.8-2.4) 1.8 MG/DL (1.8-2.4) Hypochromasia 1+ Pro-B-Type Natriuretic Peptide 3719 pg/mL (0-125) Height (Feet): 6 Height (Inches): 6.00 Weight (Pounds): 186 Objective PE General: severe distress, chronically Ill ENT: moist mucus membranes, ng++ Neck: limited range of motion Respiratory: respiratory distress, rhonch ++ vent Cardiovascular: RRr, no mgr Gastrointestinal: normal inspection, soft ++ peg Msk: normal inspection Neuro: responsive, motor weakness Skin: no rash Jake Womack MD Apr 03, 2019 16:18
--- NOTE | 2019-04-03 16:23 | NUR ---
NURSE NOTES: Wet to dry dressing with dakins solution changed on sacrum. VSS. Will continue to monitor.
--- NOTE | 2019-04-03 18:17 | NUR ---
NURSE NOTES: Family here to visit with pt. VSS. No acute distress. Will continue to monitor.
--- NOTE | 2019-04-03 19:23 | NUR ---
HAND-OFF: Report given to Vu BERGER.
--- NOTE | 2019-04-03 19:30 | NUR ---
NURSE NOTES: Report and pt received from CELINE Martin. Pt alert and oriented x1, spontaneous eye opening with tracking. Pt on cardiac monitor technician, SB in the 50s. Pt was extubated this morning, now on 3L/NC, spO2 99%. NPO at this time, waiting for swallow eval. Jose noted and intact with clear samson urine to gravity. 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 Left upper arm PICC inserted today, currently TKO. Safety measures in place with bed locked and in lowest position, side rails x3 up and bed alarm on. Will continue to monitor and continue plan of care. Ordered to transfer to SDU.
[2019-04-03] MEDS ORDERED: Dyna-Hex 2% Top Sol 2oz TOPIC SCH (20:00)
--- NOTE | 2019-04-03 22:00 | NUR ---
TRANSFER TO FLOOR: Patient transferred to SDU [id number], per staff. NO Belongings noted. Family and or S/O informed of transfer.
[2019-04-03] MEDS ORDERED: Midazolam 2mg/2ml Inj IVP PRN (22:45)
[2019-04-03] MEDS ORDERED: Acetaminophen 650mg/20.3ml NG PRN (22:45)
[2019-04-03] MEDS: Vancomycin 1 GM in D5W 275 ML IVPB SCH (23:15)
[2019-04-04] VITALS: BP 141/71
--- NOTE | 2019-04-04 02:00 | NUR ---
NURSE NOTES: Pt's resting in bed, asleep, in no acute distress. VS stable. Will continue to monitor.
[2019-04-04 04:00] VITALS: BP 134/65
--- NOTE | 2019-04-04 04:00 | NUR ---
NURSE NOTES: Pt's resting in bed, in no acute distress. VS stable. Will continue to monitor.
[2019-04-04 04:58] LABS: HEMATOCRIT 24.7 % (42.0-52.0); HEMOGLOBIN 7.6 G/DL (14.2-18.0); MEAN CORPUSCULAR VOLUME 91 FL (80-99); PLATELET COUNT 274 K/UL (150-450); RED CELL DISTRIBUTION WIDTH 16.6 % (11.6-14.8); WHITE BLOOD COUNT 7.4 K/UL (4.8-10.8)
[2019-04-04 05:19] LABS: ANION GAP 9 mmol/L (5-15); BLOOD UREA NITROGEN 11 mg/dL (7-18); CALCIUM 7.9 MG/DL (8.5-10.1); CARBON DIOXIDE 24 MMOL/L (21-32); CHLORIDE 109 MMOL/L (98-107); CREATININE 0.8 MG/DL (0.55-1.30); POTASSIUM 3.9 MMOL/L (3.5-5.1); SODIUM 142 MMOL/L (136-145)
[2019-04-04] MEDS: Piperacillin/Tazobactam 3.375 GM in NS 110 ML IVPB SCH ×2 (05:58→13:53)
--- NOTE | 2019-04-04 07:08 | NUR ---
HAND-OFF: Report given to Schuyler Fall RN.
--- NOTE | 2019-04-04 07:19 | NUR ---
NURSE NOTES: Received report form CELINE Womack. Patient is resting in bed, in stable condition. No s/sx of SOB, breathing is even and unlabored, pt extubated 04/03 - pt on 2L NC SpO2 100%, pt for swallow eval today. Observed no presence of pain or discomfort at this time. Bed is in lowest position, brakes engaged. Call light is kept within easy reach. Will continue to monitor patient.
[2019-04-04 08:00] VITALS: BP 147/58
[2019-04-04] MEDS: Dakin's 0.125% Soln (Quarter Strength) 16oz TOPIC SCH ×2 (09:13→20:50)
[2019-04-04] MEDS: Ascorbic Acid 500mg tab NG SCH ×2 (09:13→20:49)
[2019-04-04] MEDS: Zinc Sulfate 220mg cap NG SCH (09:13)
[2019-04-04] MEDS: Pantoprazole Inj IVP SCH (09:14)
--- NOTE | 2019-04-04 09:26 | NUR ---
NOTES: REFERRED BY DR ESTRADA FOR A SWALLOW EVALUATION, SEE FULL REPORT IN CARE ACTIVITY SECTION. DYSPHAGIA RISK FACTORS FOR THIS 89 Y.O.M.: acute aspiration pna and hypoxia, intubated 03/26/19 to 04/03/19 (one day post extubation), h/o advanced age, dysphagia, CVA, psych (schizophrenia), on GERD meds, cardiac d/o, seizure d/o, dementia, FTT, sepsis, dehydration, HTN. PER POLST OK TO HAVE LT ARTIFICIAL NUTRITION IF NEEDS. AT SNF ON A REGULAR TYPE PUREED DIET AND THIN LIQUIDS. 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 PLACED ON A CARDIAC MOSIT PUREE DIET WITH NECTAR THICK LIQUIDS AND ASPIRATION/REFLUX PRECAUTIONS. PATIENT HAD 75% INTAKE BUT REFUSED A MEAL. PER RD NOW, PT NEEDS A LOW NA DIET. PATIENT ASKING TO EAT/DRINK BY MOUTH FOR QUALITY OF LIFE. OGT REMOVED YESTERDAY. ALERT AND ABLE TO EXPRESS SOME NEEDS. POOR ABILITY TO TOLERATE HOB AT 90 DUE TO BACK PAIN. INITIAL IMPRESSIONS: S/S OF A SIGNIFICANT ORAL PREP AND OROPHARYNGEAL DYSPHAGIA WITH S/S OF ASPIRATION WITH ALL PO TRIALS. LIPS ARE FUNCTIONAL TONGUE IS SLOWER AND WEAKER AND HAD 3 MASSES UNDER HIS TONGUE THIN LIQUIDS (SEQUENTIAL SIPS WITH STRAW 3 0Z WATER GRIDLEY SWALLOW PROTOCOL) COUGHED AFTER DRINKING 3/4 OF THE 3 OZ AND NEEDED TO TAKE A BREATH. NO ORAL RESIDUE AND HAD FAIR HYOLARYNGEAL EXCURSION GIVEN NECTAR THICK LIQUIDS TSP/CUP COUGHED AFTER THE SWALLOW AND VOICE WET/GURGLY GIVEN TSP PUREED COUGHED AFTER THE SWALLOW AND HAD MIN RESIDUE IN FRONT OF MOUTH. HAS SILENT ASPIRATION RISK RECOMMENDATIONS COMPLETE MOD BARIUM SWALLOW STUDY TO FURTHER ASSESS SWALLOW, DETERMINE ASPIRATION RISK, AND ATTEMPT TRIAL TX HOLD ON PO INTAKE UNTIL MBSS COMPLETED. CONSIDER ENT TO CHECK UNDER HIS TONGUE AND LOOK AT 3 MASSES (HAS SOME SMOKING HX AND THE PATIENT WAS NOT CLEAR ABOUT AMOUNT OF TIME) SKILLED MANAGEMENT AND TX AND COG-COM EVAL/TX D/W RN AND DR ESTRADA (WHO AGREED WITH MBSS AND WILL HOLD ON ENT EXAM UNTIL D/C).
[2019-04-04] MEDS ORDERED: Tubing IV Secondary IV ONE (10:08)
[2019-04-04] MEDS ORDERED: Sterile Water Irrig 1000ml IRRIG ONE (10:08)
[2019-04-04] MEDS ORDERED: NS 275ml ONE (10:08)
--- NOTE | 2019-04-04 10:44 | Diagnostic Imaging Report ---
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 The left upper extremity was prepped with alcohol. All elements of maximal sterile barrier technique were followed including usage of a cap, mask, sterile gown, sterile gloves, hand hygiene and a large sterile sheet. Sonographic evaluation of the upper extremity was performed demonstrating a patent and compressible basilic vein. Access was obtained under real-time ultrasound guidance (with utilization of sterile gel and sterile probe cover) and digital image was saved and archived. An .018 wire was introduced. Needle exchanged for a 5 Setswana peel-away sheath. Measurements were obtained. A 5 Setswana dual-lumen Power PICC line catheter was cut to 40 cm and introduced over the wire. Peel-away sheath and wire were removed.Catheter was secured to the skin using 2-0 Prolene suture. Both ports aspirate and flush easily. Post procedure chest x-ray demonstrates good position of the PICC line catheter within the SVC. Impression: Successful placement of an upper extremity PICC line catheter
--- NOTE | 2019-04-04 10:46 | GI Progress Note ---
Assessment/Plan Problems: (1) GI bleed ICD Codes: K92.2 - Gastrointestinal hemorrhage, unspecified SNOMED: 35242209 (2) Anemia ICD Codes: D64.9 - Anemia, unspecified SNOMED: 477017252 (3) Respiratory distress ICD Codes: R06.03 - Acute respiratory distress SNOMED: 323080329 (4) Electrolyte abnormality ICD Codes: E87.8 - Other disorders of electrolyte and fluid balance, not elsewhere classified SNOMED: 087184452 Status: unchanged Status Narrative Discussed with Dr. Roche. Assessment/Plan SUMMARY OF FINDINGS: Gastritis, otherwise normal upper endoscopic examination. ST evaluation reviewed RECOMMENDATIONS: PEG scheduled for , family has agreed. - xarelto stopped. TF electrolyte correction prn transfusions ppi pulm care cbc in am The patient was seen and examined at bedside and all new and available data was reviewed in the patients chart. I agree with the above findings, impression and plan. (Patient seen earlier today. Signature stamp does not reflect patient encounter time.). - Sergei Roche MD Subjective Subjective limited Objective Last 24 Hour Vital Signs Date Time Temp Pulse Resp B/P (MAP) Pulse Ox O2 Delivery O2 Flow Rate FiO2 04/04/19 08:00 2.0 04/04/19 08:00 97.5 65 18 147/58 (87) 100 04/04/19 08:00 67 04/04/19 08:00 Nasal Cannula 2.0 Nasal Cannula 3.0 04/04/19 04:00 98.1 59 18 134/65 (88) 100 04/04/19 04:00 55 04/04/19 04:00 2.0 04/04/19 04:00 Nasal Cannula 2.0 Nasal Cannula 3.0 04/04/19 00:00 64 04/04/19 00:00 3.0 04/04/19 00:00 96.6 67 18 141/71 (94) 100 04/04/19 00:00 Nasal Cannula 3.0 Nasal Cannula 3.0 04/03/19 22:00 60 15 128/58 (81) 97 04/03/19 21:00 59 15 120/55 (76) 97 04/03/19 20:00 65 16 135/62 (86) 100 04/03/19 20:00 Nasal Cannula 3.0 Nasal Cannula 3.0 04/03/19 20:00 74 04/03/19 20:00 3.0 04/03/19 19:58 97 Nasal Cannula 2.0 28 04/03/19 19:00 52 15 132/48 (76) 99 04/03/19 18:00 54 15 123/47 (72) 100 04/03/19 17:00 42 113/60 (77) 100 04/03/19 16:00 Nasal Cannula 3.0 Nasal Cannula 3.0 04/03/19 16:00 98.0 54 12 123/52 (75) 99 04/03/19 16:00 3.0 04/03/19 16:00 54 04/03/19 15:08 138/62 04/03/19 15:00 56 14 123/51 (75) 100 04/03/19 14:00 56 14 138/62 (87) 100 04/03/19 13:00 53 17 115/50 (71) 100 04/03/19 12:00 Nasal Cannula 3.0 Nasal Cannula 3.0 04/03/19 12:00 3.0 04/03/19 12:00 54 04/03/19 12:00 98.2 55 15 129/51 (77) 100 04/03/19 11:00 71 17 114/50 (71) 99 Intake and Output 04/03/19 04/04/19 19:00 07:00 Intake Total 82.5 ml 385.000 ml Output Total 580 ml 250 ml Balance -497.5 ml 135.000 ml IV Total 82.5 ml 385.000 ml Tube Feeding 0 ml Output Urine Total 580 ml 250 ml # Bowel Movements 3 Laboratory Tests Test 04/03/19 22:00 04/04/19 02:45 Vancomycin Level Trough 19.9 ug/mL (5.0-12.0) H White Blood Count 7.4 K/UL (4.8-10.8) Red Blood Count 2.70 M/UL (4.70-6.10) L Hemoglobin 7.6 G/DL (14.2-18.0) L Hematocrit 24.7 % (42.0-52.0) L Mean Corpuscular Volume 91 FL (80-99) Mean Corpuscular Hemoglobin 28.3 PG (27.0-31.0) Mean Corpuscular Hemoglobin Concent 30.9 G/DL (32.0-36.0) L Red Cell Distribution Width 16.6 % (11.6-14.8) H Platelet Count 274 K/UL (150-450) Mean Platelet Volume 5.2 FL (6.5-10.1) L Neutrophils (%) (Auto) % (45.0-75.0) Lymphocytes (%) (Auto) % (20.0-45.0) Monocytes (%) (Auto) % (1.0-10.0) Eosinophils (%) (Auto) % (0.0-3.0) Basophils (%) (Auto) % (0.0-2.0) Differential Total Cells Counted 100 Neutrophils % (Manual) 71 % (45-75) Lymphocytes % (Manual) 20 % (20-45) Monocytes % (Manual) 7 % (1-10) Eosinophils % (Manual) 2 % (0-3) Basophils % (Manual) 0 % (0-2) Band Neutrophils 0 % (0-8) Platelet Estimate Adequate Platelet Morphology Normal Hypochromasia 1+ Sodium Level 142 MMOL/L (136-145) Potassium Level 3.9 MMOL/L (3.5-5.1) Chloride Level 109 MMOL/L (98-107) H Carbon Dioxide Level 24 MMOL/L (21-32) Anion Gap 9 mmol/L (5-15) Blood Urea Nitrogen 11 mg/dL (7-18) Creatinine 0.8 MG/DL (0.55-1.30) Estimat Glomerular Filtration Rate mL/min (>60) Glucose Level 65 MG/DL (74-106) L Calcium Level 7.9 MG/DL (8.5-10.1) L Height (Feet): 6 Height (Inches): 6.00 Weight (Pounds): 186 General Appearance: no apparent distress Cardiovascular: normal rate Respiratory/Chest: normal breath sounds, no respiratory distress Abdominal Exam: normal bowel sounds, non tender, soft Extremities: non-tender Tahir Beavers NP Apr 04, 2019 10:46
--- NOTE | 2019-04-04 11:41 | NUR ---
CASE MANAGEMENT: REVIEW 04/04/2019 SI:SEPSIS. PNEUMONITIS. T 97.5 HR 65 RR 18 B/P 147/58 SATS 100% ON 2L/NC HGB 7.6 HCT 24.7 CL 109 GLU 65 CA 7.9 IS:ZOSYN IV Q8H MIDODRINE NG Q8H PROTONIX IV QD VANCO IV Q12H LASIX NG Q12H XARELTO NG QPM SDU
[2019-04-04 12:00] VITALS: BP 124/63
--- NOTE | 2019-04-04 12:26 | Infectious Diseases Prog Note ---
Assessment/Plan Assessment/Plan A; Recurrent MRSA sepsis Pneumonia L1-L2 discitis/osteomyelitis Psoas abscess Acute respiratory failure, resolved Anemia Gastritis Stage 4 sacral ulcer P; Continue Vancomycin X 5 weeks Subjective ROS Limited/Unobtainable: Yes Constitutional: Denies: fever Allergies: Coded Allergies: No Known Allergies (Unverified , 01/18/19) Objective Vital Signs Last 24 Hour Vital Signs Date Time Temp Pulse Resp B/P (MAP) Pulse Ox O2 Delivery O2 Flow Rate FiO2 04/04/19 12:00 2.0 04/04/19 11:59 Nasal Cannula 2.0 Nasal Cannula 3.0 04/04/19 08:00 2.0 04/04/19 08:00 97.5 65 18 147/58 (87) 100 04/04/19 08:00 67 04/04/19 08:00 Nasal Cannula 2.0 Nasal Cannula 3.0 04/04/19 04:00 98.1 59 18 134/65 (88) 100 04/04/19 04:00 55 04/04/19 04:00 2.0 04/04/19 04:00 Nasal Cannula 2.0 Nasal Cannula 3.0 04/04/19 00:00 64 04/04/19 00:00 3.0 04/04/19 00:00 96.6 67 18 141/71 (94) 100 04/04/19 00:00 Nasal Cannula 3.0 Nasal Cannula 3.0 04/03/19 22:00 60 15 128/58 (81) 97 04/03/19 21:00 59 15 120/55 (76) 97 04/03/19 20:00 65 16 135/62 (86) 100 04/03/19 20:00 Nasal Cannula 3.0 Nasal Cannula 3.0 04/03/19 20:00 74 04/03/19 20:00 3.0 04/03/19 19:58 97 Nasal Cannula 2.0 28 04/03/19 19:00 52 15 132/48 (76) 99 04/03/19 18:00 54 15 123/47 (72) 100 04/03/19 17:00 42 113/60 (77) 100 04/03/19 16:00 Nasal Cannula 3.0 Nasal Cannula 3.0 04/03/19 16:00 98.0 54 12 123/52 (75) 99 04/03/19 16:00 3.0 04/03/19 16:00 54 04/03/19 15:08 138/62 04/03/19 15:00 56 14 123/51 (75) 100 04/03/19 14:00 56 14 138/62 (87) 100 04/03/19 13:00 53 17 115/50 (71) 100 Height (Feet): 6 Height (Inches): 6.00 Weight (Pounds): 186 General Appearance: no acute distress HEENT: mucous membranes moist Respiratory/Chest: lungs clear Cardiovascular: normal rate, other - left arm PICC line Abdomen: soft, non tender Extremities: no edema Neurologic/Psychiatric: other - sleeping Laboratory Tests Test 04/03/19 22:00 04/04/19 02:45 Vancomycin Level Trough 19.9 ug/mL (5.0-12.0) H White Blood Count 7.4 K/UL (4.8-10.8) Red Blood Count 2.70 M/UL (4.70-6.10) L Hemoglobin 7.6 G/DL (14.2-18.0) L Hematocrit 24.7 % (42.0-52.0) L Mean Corpuscular Volume 91 FL (80-99) Mean Corpuscular Hemoglobin 28.3 PG (27.0-31.0) Mean Corpuscular Hemoglobin Concent 30.9 G/DL (32.0-36.0) L Red Cell Distribution Width 16.6 % (11.6-14.8) H Platelet Count 274 K/UL (150-450) Mean Platelet Volume 5.2 FL (6.5-10.1) L Neutrophils (%) (Auto) % (45.0-75.0) Lymphocytes (%) (Auto) % (20.0-45.0) Monocytes (%) (Auto) % (1.0-10.0) Eosinophils (%) (Auto) % (0.0-3.0) Basophils (%) (Auto) % (0.0-2.0) Differential Total Cells Counted 100 Neutrophils % (Manual) 71 % (45-75) Lymphocytes % (Manual) 20 % (20-45) Monocytes % (Manual) 7 % (1-10) Eosinophils % (Manual) 2 % (0-3) Basophils % (Manual) 0 % (0-2) Band Neutrophils 0 % (0-8) Platelet Estimate Adequate Platelet Morphology Normal Hypochromasia 1+ Sodium Level 142 MMOL/L (136-145) Potassium Level 3.9 MMOL/L (3.5-5.1) Chloride Level 109 MMOL/L (98-107) H Carbon Dioxide Level 24 MMOL/L (21-32) Anion Gap 9 mmol/L (5-15) Blood Urea Nitrogen 11 mg/dL (7-18) Creatinine 0.8 MG/DL (0.55-1.30) Estimat Glomerular Filtration Rate mL/min (>60) Glucose Level 65 MG/DL (74-106) L Calcium Level 7.9 MG/DL (8.5-10.1) L Current Medications Medications (Trade) Dose Ordered Sig/Vaughn Route PRN Reason Start Time Stop Time Status Last Admin Dose Admin Acetaminophen (Tylenol) 650 mg Q4H PRN NG Mild Pain/Temp > 100.5 04/03/19 22:45 04/29/19 18:41 Ascorbic Acid (Vitamin C) 250 mg EVERY 12 HOURS NG 04/04/19 09:00 04/26/19 17:59 04/04/19 09:13 Chlorhexidine Gluconate (Michelle-Hex 2%) 1 applic DAILY@2000 TOPIC 04/04/19 20:00 05/03/19 19:59 Furosemide (Lasix) 20 mg EVERY 12 HOURS NG 04/04/19 09:00 05/04/19 08:59 04/04/19 09:13 Levothyroxine Sodium (Synthroid) 100 mcg DAILY@0630 NG 04/04/19 06:30 04/30/19 06:29 04/04/19 05:58 Midazolam HCl (Versed 2mg/2ml vial) 1 mg Q2H PRN IVP For Anxiety 04/03/19 22:45 04/27/19 14:44 Pantoprazole (Protonix) 40 mg DAILY IVP 04/04/19 09:00 04/26/19 08:59 04/04/19 09:14 Piperacillin Sod/ Tazobactam Sod 3.375 gm/Sodium Chloride 110 ml @ 27.5 mls/hr EVERY 8 HOURS IVPB 04/03/19 22:00 04/04/19 21:59 04/04/19 05:58 Rivaroxaban (Xarelto) 20 mg QPM NG 04/04/19 16:30 04/29/19 16:29 Sodium Hypochlorite (Dakin's Quarter Strength) 1 applic EVERY 12 HOURS TOPIC 04/04/19 09:00 04/27/19 00:00 04/04/19 09:13 Vancomycin HCl (Vanco rx to dose) 1 ea DAILY PRN MISC Per rx protocol 04/04/19 09:00 04/26/19 15:59 Vancomycin HCl 1 gm/Dextrose 275 ml @ 183.708 mls/hr Q24H IVPB 04/03/19 23:00 04/06/19 22:59 04/03/19 23:15 Zinc Sulfate (Zinc Sulfate) 220 mg DAILY NG 04/04/19 09:00 04/27/19 08:59 04/04/19 09:13 Isaac Martinez MD Apr 04, 2019 12:26
--- NOTE | 2019-04-04 12:42 | Cardiac Electrophysiology PN ---
Assessment/Plan Assessment/Plan 1. S/P Septic shock. Blood Cx positive for GP cocci. . On IV antibiotics. EF 60 to 65 percent with mild diastolic dysfunction. 2. Bradycardia. Off Midodrine 3. S/P Respiratory failure, likely due to pneumonia. Extubated. The patient is on broad-spectrum IV antibiotics. 4. Mild diastolic dysfunction with elevated BNP. 5. 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 UTI. 7. Dysphagia, May need PEG DW RN Subjective Subjective Extubated yesterday and transferred to SDU. EGD showed gastritis. Swallow eval done results pending Objective Last 24 Hour Vital Signs Date Time Temp Pulse Resp B/P (MAP) Pulse Ox O2 Delivery O2 Flow Rate FiO2 04/04/19 12:00 2.0 04/04/19 11:59 Nasal Cannula 2.0 Nasal Cannula 3.0 04/04/19 08:00 2.0 04/04/19 08:00 97.5 65 18 147/58 (87) 100 04/04/19 08:00 67 04/04/19 08:00 Nasal Cannula 2.0 Nasal Cannula 3.0 04/04/19 04:00 98.1 59 18 134/65 (88) 100 04/04/19 04:00 55 04/04/19 04:00 2.0 04/04/19 04:00 Nasal Cannula 2.0 Nasal Cannula 3.0 04/04/19 00:00 64 04/04/19 00:00 3.0 04/04/19 00:00 96.6 67 18 141/71 (94) 100 04/04/19 00:00 Nasal Cannula 3.0 Nasal Cannula 3.0 04/03/19 22:00 60 15 128/58 (81) 97 04/03/19 21:00 59 15 120/55 (76) 97 04/03/19 20:00 65 16 135/62 (86) 100 04/03/19 20:00 Nasal Cannula 3.0 Nasal Cannula 3.0 04/03/19 20:00 74 04/03/19 20:00 3.0 04/03/19 19:58 97 Nasal Cannula 2.0 28 04/03/19 19:00 52 15 132/48 (76) 99 04/03/19 18:00 54 15 123/47 (72) 100 04/03/19 17:00 42 113/60 (77) 100 04/03/19 16:00 Nasal Cannula 3.0 Nasal Cannula 3.0 04/03/19 16:00 98.0 54 12 123/52 (75) 99 04/03/19 16:00 3.0 04/03/19 16:00 54 04/03/19 15:08 138/62 04/03/19 15:00 56 14 123/51 (75) 100 04/03/19 14:00 56 14 138/62 (87) 100 04/03/19 13:00 53 17 115/50 (71) 100 Intake and Output 04/03/19 04/04/19 19:00 07:00 Intake Total 82.5 ml 385.000 ml Output Total 580 ml 250 ml Balance -497.5 ml 135.000 ml IV Total 82.5 ml 385.000 ml Tube Feeding 0 ml Output Urine Total 580 ml 250 ml # Bowel Movements 3 Laboratory Tests Test 04/03/19 22:00 04/04/19 02:45 Vancomycin Level Trough 19.9 ug/mL (5.0-12.0) H White Blood Count 7.4 K/UL (4.8-10.8) Red Blood Count 2.70 M/UL (4.70-6.10) L Hemoglobin 7.6 G/DL (14.2-18.0) L Hematocrit 24.7 % (42.0-52.0) L Mean Corpuscular Volume 91 FL (80-99) Mean Corpuscular Hemoglobin 28.3 PG (27.0-31.0) Mean Corpuscular Hemoglobin Concent 30.9 G/DL (32.0-36.0) L Red Cell Distribution Width 16.6 % (11.6-14.8) H Platelet Count 274 K/UL (150-450) Mean Platelet Volume 5.2 FL (6.5-10.1) L Neutrophils (%) (Auto) % (45.0-75.0) Lymphocytes (%) (Auto) % (20.0-45.0) Monocytes (%) (Auto) % (1.0-10.0) Eosinophils (%) (Auto) % (0.0-3.0) Basophils (%) (Auto) % (0.0-2.0) Differential Total Cells Counted 100 Neutrophils % (Manual) 71 % (45-75) Lymphocytes % (Manual) 20 % (20-45) Monocytes % (Manual) 7 % (1-10) Eosinophils % (Manual) 2 % (0-3) Basophils % (Manual) 0 % (0-2) Band Neutrophils 0 % (0-8) Platelet Estimate Adequate Platelet Morphology Normal Hypochromasia 1+ Sodium Level 142 MMOL/L (136-145) Potassium Level 3.9 MMOL/L (3.5-5.1) Chloride Level 109 MMOL/L (98-107) H Carbon Dioxide Level 24 MMOL/L (21-32) Anion Gap 9 mmol/L (5-15) Blood Urea Nitrogen 11 mg/dL (7-18) Creatinine 0.8 MG/DL (0.55-1.30) Estimat Glomerular Filtration Rate mL/min (>60) Glucose Level 65 MG/DL (74-106) L Calcium Level 7.9 MG/DL (8.5-10.1) L Objective HEAD AND NECK: No JVD LUNGS: Coarse rhonchi. CARDIOVASCULAR:Regular S1 and S2 with no gallop or murmur. ABDOMEN: Soft. EXTREMITIES: No pitting edema. Christian Vargas MD Apr 04, 2019 12:42
--- NOTE | 2019-04-04 13:03 | NUR ---
ST NOTE: MODIFIED BARIUM SWALLOW STUDY COMPLETED, SEE FULL REPORT TO FOLLOW. 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 NO ASPIRATION BUT HAS HIGH RISK FOR CHRONIC TRACE TO MORE ASPIRATION BEFORE AND AFTER THE SWALLOW (HAS ASPIRATION PNA NOW AND HAD PNA DURING HIS JANUARY 2019 ADMIT). HIGHLY INEFFICIENT SWALLOW AND LIKELY UNABLE TO MEET NUTRITIONAL NEEDS (HAS SEVERE MALNUTRITION AND SIGNIFICANT WEIGHT LOSS). RECOMMENDATIONS: CONSERVATIVELY, KEEP NPO FOR NOW AND CONSIDER NONORAL FEEDINGS AND CONTINUE ORAL CARE AT THIS TIME. HIS DAUGHTER IS RECEPTIVE TO NONORAL FEEDINGS. WILL CONSIDER ORAL GRAT WITH [employer] INITIALLY SINCE PT STILL WANTS SOME PO INTAKE. D/W ISAAC JAIN, RN EMI WHO SPOKE TO DR RAMIREZ. 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 NO ASPIRATION NOR LARYNGEAL PENETRATION WITH THIN/NECTAR/HONEY THICK LIQUID TRIALS BUT HAS HIGH RISK FOR CHRONIC TRACE TO MORE ASPIRATION BEFORE AND AFTER THE SWALLOW (HAS ASPIRATION PNA NOW AND HAD PNA DURING HIS JANUARY 2019 ADMIT). HIGHLY INEFFICIENT SWALLOW AND LIKELY UNABLE TO MEET NUTRITIONAL NEEDS (HAS SEVERE MALNUTRITION AND SIGNIFICANT WEIGHT LOSS). DEFICITS/COMPONENTS INCLUDE: Decreased labial ROM Decreased oral sensation (ORAL APRAXIA AWARENESS DEFICITS) Decreased lingual RO Dentition Permanent Missing Teeth Oral Impairment Lip Closure Tongue Control Bolus prep/mastication Bolus transport /lingual motion Oral residue Initiation pharyngeal swallow Pharyngeal Impairment Laryngeal elevation (LE) Ant. hyoid excursion (AHE) Epiglottic movement Late laryngeal vestibule closure Pharyngeal stripping wave Pharyngeal segment Opening Tongue base retraction Pharyngeal residue Decreased pharyngeal sensation PRIOR ISSUES WITH ESOPHAGEAL RETENTION but grossly functional with limited view to shoulder obstruction. Strategies ATTEMPTED: INCONSISTENT BENEFIT FROM CUES TO MOVE TONGUE BACK OR LOWER THE BACK OF TONGUE, MORE TIME, CHIN NEUTRAL (TENDS TO PUT IT DOWN WHICH MAKES IT HARDER FOR AP TONGUE MOVEMENT OF BOLUS AND COULD NOT DO CHIN UP) DIFFICULTY FOLLOWING COMMANDS RECOMMENDATIONS: CONSERVATIVELY, KEEP NPO FOR NOW AND CONSIDER NONORAL FEEDINGS PRIMARY MODE OF INTAKE AND CONSIDER ORAL GRATIFICATION WITH [facility] THEN STAFF/FAMILY POST TRAINING IN POSTED ASPIRATION AND REFLUX PRECAUTIONS PT STILL WANTS SOME PO FOR QUALITY OF LIFE PURPOSES. CONTINUE WITH ORAL CARE AT THIS TIME. HIS DAUGHTER IS RECEPTIVE TO NONORAL FEEDINGS SINCE INTAKE HAS BEEN POOR. D/W ISAAC JAIN, RN EMI WHO SPOKE TO DR RAMIREZ. Addendum: 04/06/19 at 1209 by ALE GARNER [employer] HAS CERVICAL OSTEOPHYTES BUT THEY DO NOT OBSTRUCT BOLUS FLOW.
--- NOTE | 2019-04-04 13:16 | Surgery Progress Note ---
Surgery Progress Note Subjective Additional Comments no acute events comfortable stable exam unchanged. out of ICU improving labs noted Objective Last 24 Hour Vital Signs Date Time Temp Pulse Resp B/P (MAP) Pulse Ox O2 Delivery O2 Flow Rate FiO2 04/04/19 12:00 2.0 04/04/19 12:00 97.4 69 18 124/63 (83) 100 04/04/19 11:59 Nasal Cannula 2.0 Nasal Cannula 3.0 04/04/19 08:00 2.0 04/04/19 08:00 97.5 65 18 147/58 (87) 100 04/04/19 08:00 67 04/04/19 08:00 Nasal Cannula 2.0 Nasal Cannula 3.0 04/04/19 04:00 98.1 59 18 134/65 (88) 100 04/04/19 04:00 55 04/04/19 04:00 2.0 04/04/19 04:00 Nasal Cannula 2.0 Nasal Cannula 3.0 04/04/19 00:00 64 04/04/19 00:00 3.0 04/04/19 00:00 96.6 67 18 141/71 (94) 100 04/04/19 00:00 Nasal Cannula 3.0 Nasal Cannula 3.0 04/03/19 22:00 60 15 128/58 (81) 97 04/03/19 21:00 59 15 120/55 (76) 97 04/03/19 20:00 65 16 135/62 (86) 100 04/03/19 20:00 Nasal Cannula 3.0 Nasal Cannula 3.0 04/03/19 20:00 74 04/03/19 20:00 3.0 04/03/19 19:58 97 Nasal Cannula 2.0 28 04/03/19 19:00 52 15 132/48 (76) 99 04/03/19 18:00 54 15 123/47 (72) 100 04/03/19 17:00 42 113/60 (77) 100 04/03/19 16:00 Nasal Cannula 3.0 Nasal Cannula 3.0 04/03/19 16:00 98.0 54 12 123/52 (75) 99 04/03/19 16:00 3.0 04/03/19 16:00 54 04/03/19 15:08 138/62 04/03/19 15:00 56 14 123/51 (75) 100 8/26/19 14:00 56 14 138/62 (87) 100 I&O Intake and Output 04/03/19 04/04/19 18:59 06:59 Intake Total 110.0 ml 385.000 ml Output Total 580 ml 300 ml Balance -470.0 ml 85.000 ml IV Total 110.0 ml 385.000 ml Tube Feeding 0 ml 0 ml Output Urine Total 580 ml 300 ml # Bowel Movements 3 Dressing: saturated Wound: other Drains: other Cardiovascular: RSR Respiratory: decreased breath sounds Abdomen: soft, non-tender, non-distended, decreased bowel sounds Extremities: no cyanosis Laboratory Tests Test 04/03/19 22:00 04/04/19 02:45 Vancomycin Level Trough 19.9 ug/mL (5.0-12.0) H White Blood Count 7.4 K/UL (4.8-10.8) Red Blood Count 2.70 M/UL (4.70-6.10) L Hemoglobin 7.6 G/DL (14.2-18.0) L Hematocrit 24.7 % (42.0-52.0) L Mean Corpuscular Volume 91 FL (80-99) Mean Corpuscular Hemoglobin 28.3 PG (27.0-31.0) Mean Corpuscular Hemoglobin Concent 30.9 G/DL (32.0-36.0) L Red Cell Distribution Width 16.6 % (11.6-14.8) H Platelet Count 274 K/UL (150-450) Mean Platelet Volume 5.2 FL (6.5-10.1) L Neutrophils (%) (Auto) % (45.0-75.0) Lymphocytes (%) (Auto) % (20.0-45.0) Monocytes (%) (Auto) % (1.0-10.0) Eosinophils (%) (Auto) % (0.0-3.0) Basophils (%) (Auto) % (0.0-2.0) Differential Total Cells Counted 100 Neutrophils % (Manual) 71 % (45-75) Lymphocytes % (Manual) 20 % (20-45) Monocytes % (Manual) 7 % (1-10) Eosinophils % (Manual) 2 % (0-3) Basophils % (Manual) 0 % (0-2) Band Neutrophils 0 % (0-8) Platelet Estimate Adequate Platelet Morphology Normal Hypochromasia 1+ Sodium Level 142 MMOL/L (136-145) Potassium Level 3.9 MMOL/L (3.5-5.1) Chloride Level 109 MMOL/L (98-107) H Carbon Dioxide Level 24 MMOL/L (21-32) Anion Gap 9 mmol/L (5-15) Blood Urea Nitrogen 11 mg/dL (7-18) Creatinine 0.8 MG/DL (0.55-1.30) Estimat Glomerular Filtration Rate mL/min (>60) Glucose Level 65 MG/DL (74-106) L Calcium Level 7.9 MG/DL (8.5-10.1) L Plan Problems: (1) Respiratory distress (2) Decubitus skin ulcer Assessment & Plan: Pt presented on admission with multiple pressure injuries and ulcerations 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 Base of wound has mixed slough and necrosis. Edges adherent and dark . Periwound indurated with darker skin tone. Pt complained of pain when minimally palpated. Mild odor noted Full thickness ulcer R tibia. Base of wound has slough. Edges adherent and flat ,Periwound without erythema or fluctuance. Stable dry eschar noted to R hallux. edges are dark but adherent to base of wound. Periwound dark without erythema or fluctuance Stable dry eschar noted to R st metatarsal head. Periwound pale without fluctuance Stable dry eschar noted to dorsal aspects of R 3rd and 4th metatarsals. Full thickness ulcer lateral R 5th metatarsal. base of wound with some areas of necrosis and edges are black . No odor or exudate noted Stable dry eschar R heel . Periwound fluctuant without erythema. Pt complained of pain when minimally palpated. Stable dry eschar noted to dorso/flexor L foot. Periwound without erythema , induration or fluctuance Reabsorbing blood blister noted to medial L foot. Periwound without erythema or fluctuance L heel is dry and blanchable with historical scarring from previous wounds .Dry flaky skin noted to both feet. Tx.Plan: Cleanse sacral wound with Dakin's 0.125% stefani. Loose pack wound with Dakin's moist Kerlix. Apply Moisture Barrier paste to borders and cover with Optifoam drsg. Twice daily and prn. Cleanse Wound R tibia with Saline. Apply Therahoney. Cover with Optifoam drsg. Change every 3 days and prn.Apply Cavilon Skin BArrier to both heels. Cover each heel with Optifoam drsg. change every 7 days and prn APM/PHIL mattress overlay. Reposition at least every 2hours or as tolerated. Off-load heels with pillow. (3) Severe sepsis Assessment & Plan: leukocytosis resolved anemia lactic acidosis resolved improving septic MRSA bacteremia labs noted imaging noted Cont IV abx as per ID feeds wounds evaluated and care plan as above labs noted f/u cxr will follow with recs thank you DAILY ESTIMATED NEEDS: Needs based on Wound, critical care 78.6kg 25-30 kcals/kg [id number] total kcals 1.25-2 g protein/kg 98-157 g total protein Fluid per MD, on lasix NUTRITION DIAGNOSIS: 1) Increased kcal/ pro needs r/t wound healing as evidenced by full thickness sacral wound, pending updated eval. 2) Swallowing difficulty r/t respiratory status as evidenced by s/p RR, pt now orally intubated, on pressor support. CURRENT DIET: Regular-> pt now intubated ENTERAL NUTRITION RECOMMENDATIONS: Osmolite 1.5 @55ml/hr x24 hrs + Prosource BID to provide 1320ml, 1980 kcal, 83g + 22g pro, 1006ml free H2O - WHEN HEMODYNAMICALLY STABLE, rec to obtain GI access, initiate non oral feeds to meed est nutritional needs - Start Osmolite 1.5 @25ml/hr for 6 hrs, advance as tolerated 10ml/hr q4-6 hrs to goal. - Flush per MD/ HOB over 30 degrees ADDITIONAL RECOMMENDATIONS: 1) Obtain a CALIBRATED bed wt 2) Feed w/ hemodynamic stability -> currently on pressors x2 3) WOUND CARE: Add BRUCE BID w/ GI access Add VIT C 250mg BID Add ZnSO4 220mg daily x10 days 4) On lasix, monitor lytes daily 5) HOG KILLER eval upon extubation (4) Dyspnea (5) Hypoxia Tawanda Alfaro Apr 04, 2019 13:16
--- NOTE | 2019-04-04 13:40 | Pulmonology Progress Note ---
Assessment/Plan Assessment/Plan (1) Severe sepsis (2) Respiratory distress (3) Dyspnea (4) Hypoxia (5) Decubitus skin ulcer (6) Lung mass (7) Multifocal pneumonia (8) Staphylococcus aureus bacteremia (9) MRSA bacteremia (10) Psoas abscess (11) Hypothyroidism Assessment/Plan: tolerated extubation Monitor volumes and renal function Lasix 20 mg bid Vanco/Zosyn (D5) per ID swallow eval failed may need PEG with recurrent aspiration pneumonia and weight loss d/w ST, RN Subjective ROS Limited/Unobtainable: Yes Allergies: Coded Allergies: No Known Allergies (Unverified , 01/18/19) Objective Last 24 Hour Vital Signs Date Time Temp Pulse Resp B/P (MAP) Pulse Ox O2 Delivery O2 Flow Rate FiO2 04/04/19 12:00 2.0 04/04/19 12:00 97.4 69 18 124/63 (83) 100 04/04/19 11:59 Nasal Cannula 2.0 Nasal Cannula 3.0 04/04/19 08:00 2.0 04/04/19 08:00 97.5 65 18 147/58 (87) 100 04/04/19 08:00 67 04/04/19 08:00 Nasal Cannula 2.0 Nasal Cannula 3.0 04/04/19 04:00 98.1 59 18 134/65 (88) 100 04/04/19 04:00 55 04/04/19 04:00 2.0 04/04/19 04:00 Nasal Cannula 2.0 Nasal Cannula 3.0 04/04/19 00:00 64 04/04/19 00:00 3.0 04/04/19 00:00 96.6 67 18 141/71 (94) 100 04/04/19 00:00 Nasal Cannula 3.0 Nasal Cannula 3.0 04/03/19 22:00 60 15 128/58 (81) 97 04/03/19 21:00 59 15 120/55 (76) 97 04/03/19 20:00 65 16 135/62 (86) 100 04/03/19 20:00 Nasal Cannula 3.0 Nasal Cannula 3.0 04/03/19 20:00 74 04/03/19 20:00 3.0 04/03/19 19:58 97 Nasal Cannula 2.0 28 04/03/19 19:00 52 15 132/48 (76) 99 8/26/19 18:00 54 15 123/47 (72) 100 04/03/19 17:00 42 113/60 (77) 100 04/03/19 16:00 Nasal Cannula 3.0 Nasal Cannula 3.0 04/03/19 16:00 98.0 54 12 123/52 (75) 99 04/03/19 16:00 3.0 04/03/19 16:00 54 04/03/19 15:08 138/62 04/03/19 15:00 56 14 123/51 (75) 100 04/03/19 14:00 56 14 138/62 (87) 100 Intake and Output 04/03/19 04/04/19 19:00 07:00 Intake Total 82.5 ml 385.000 ml Output Total 580 ml 250 ml Balance -497.5 ml 135.000 ml IV Total 82.5 ml 385.000 ml Tube Feeding 0 ml Output Urine Total 580 ml 250 ml # Bowel Movements 3 Objective alert General Appearance: no acute distress Respiratory/Chest: lungs clear Cardiovascular: normal rate Laboratory Tests 04/03/19 22:00: Vancomycin Level Trough 19.9H 04/04/19 02:45: White Blood Count 7.4, Red Blood Count 2.70L, Hemoglobin 7.6L, Hematocrit 24.7L , Mean Corpuscular Volume 91, Mean Corpuscular Hemoglobin 28.3, Mean Corpuscular Hemoglobin Concent 30.9L, Red Cell Distribution Width 16.6H, Platelet Count 274, Mean Platelet Volume 5.2L, Neutrophils (%) (Auto) , Lymphocytes (%) (Auto) , Monocytes (%) (Auto) , Eosinophils (%) (Auto) , Basophils (%) (Auto) , Differential Total Cells Counted 100, Neutrophils % ( Manual) 71, Lymphocytes % (Manual) 20, Monocytes % (Manual) 7, Eosinophils % ( Manual) 2, Basophils % (Manual) 0, Band Neutrophils 0, Platelet Estimate Adequate, Platelet Morphology Normal, Hypochromasia 1+, Sodium Level 142, Potassium Level 3.9, Chloride Level 109H, Carbon Dioxide Level 24, Anion Gap 9, Blood Urea Nitrogen 11, Creatinine 0.8, Estimat Glomerular Filtration Rate , Glucose Level 65L, Calcium Level 7.9L Current Medications Medications (Trade) Dose Ordered Sig/Vaughn Route PRN Reason Start Time Stop Time Status Last Admin Dose Admin Acetaminophen (Tylenol) 650 mg Q4H PRN NG Mild Pain/Temp > 100.5 04/03/19 22:45 04/29/19 18:41 Ascorbic Acid (Vitamin C) 250 mg EVERY 12 HOURS NG 04/04/19 09:00 04/26/19 17:59 04/04/19 09:13 Chlorhexidine Gluconate (Michelle-Hex 2%) 1 applic DAILY@2000 TOPIC 04/04/19 20:00 05/03/19 19:59 Dextrose/Sodium Chloride 1,000 ml @ 75 mls/hr [id number] IV 04/04/19 13:00 05/04/19 12:59 Furosemide (Lasix) 20 mg EVERY 12 HOURS NG 04/04/19 09:00 05/04/19 08:59 04/04/19 09:13 Levothyroxine Sodium (Synthroid) 100 mcg DAILY@0630 NG 04/04/19 06:30 04/30/19 06:29 04/04/19 05:58 Midazolam HCl (Versed 2mg/2ml vial) 1 mg Q2H PRN IVP For Anxiety 04/03/19 22:45 04/27/19 14:44 Pantoprazole (Protonix) 40 mg DAILY IVP 04/04/19 09:00 04/26/19 08:59 04/04/19 09:14 Piperacillin Sod/ Tazobactam Sod 3.375 gm/Sodium Chloride 110 ml @ 27.5 mls/hr EVERY 8 HOURS IVPB 04/03/19 22:00 04/04/19 21:59 04/04/19 05:58 Sodium Hypochlorite (Dakin's Quarter Strength) 1 applic EVERY 12 HOURS TOPIC 04/04/19 09:00 04/27/19 00:00 04/04/19 09:13 Vancomycin HCl (Vanco rx to dose) 1 ea DAILY PRN MISC Per rx protocol 04/04/19 09:00 04/26/19 15:59 Vancomycin HCl 1 gm/Dextrose 275 ml @ 183.708 mls/hr Q24H IVPB 04/03/19 23:00 04/06/19 22:59 04/03/19 23:15 Zinc Sulfate (Zinc Sulfate) 220 mg DAILY NG 04/04/19 09:00 04/27/19 08:59 04/04/19 09:13 Barry Najera MD Apr 04, 2019 13:39
[2019-04-04] MEDS: D5 1/2NS 1,000 ML IV SCH (13:53)
--- NOTE | 2019-04-04 14:25 | NUR ---
NURSE NOTES: [id number] in patient's room, spoke with ROSEMARY Beavers regarding PEG placement. [id number], Valentinemary grace Neely acknowledged. Consent signed and placed in chart. Noted.
--- NOTE | 2019-04-04 14:30 | NUR ---
NURSE NOTES: Per speech therapist, Mansi, noted, patient with 3 masses on tongue, Dr. Mims made aware, referred to Dr. Maurer. Dr. Maurer's office notified and left message of new consult. Noted. Will continue to monitor patient.
--- NOTE | 2019-04-04 15:07 | Hematology/Onc Progress Note ---
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 Favor scarring, but the possibility of neoplasm cannot be ruled out. 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, r/o mets --> patient is on pressors so hold off on diagnosis until more stable --> at some point will need a tissue diagnosis, as well as further w/u --> given advanced age, hold off on any extensive immediate care --> on xarelto at this time # DVT + Pulmonary embolism history could be related to mass/malignancy * HYPERCOAGULABLE DISORDER* --> on xarelto, okay to dc to snf on this --> Once peg placed, NOW restarted xarelto --> xarelto hto continue # Thrombocytopenia likely due to infection --> currently improved --> trend 203-->124-->121-->100k-->121k-->179k-->274 --> smear reviewed and no schistocytes noted # Leukocytosis is 2/2 septic shock with uti --> has been started on abx (vanc/zosyn) --> further w/u for altered mental status --> wbc 14-->19.7-->21-->9.6-->9.3 # Iron Overload --> Ferrtin 1327 continue to monitor consider chelation therapy prior to blood tx. --> on iv iron # Renal insufficiency --> as per renal recs # Respiratory failure --> sbp per pulm --> extubated 04/03 --> currently on nc # Hypotension on fluids now better --> abx and pressors # DVT ppx --> xarelto okay to continue if plt>75k The timing of this note does not necessarily reflect the time of the patient was seen. GREATLY APPRECIATE CONSULTATION. Subjective Hematologic/Lymphatic: Reports: anemia Allergies: Coded Allergies: No Known Allergies (Unverified , 01/18/19) All Systems: reviewed and negative except above Subjective 03/28: labs have been reviewed, hgb is less than 7, hgb 6.5, and prbc that has been ordered 03/29: in icu, on abx, no signs of distress, blood tx completed, labs reviewed 03/30: hgb is better, remains in the icu, on pressors levo, otherwise gtf started 03/31: icu, hgb 6.8, blood tx ordered, on rivaroxaban, vent, ng 04/02: on ng/vent, remains in the icu, recovering well s/p transfu, rivaroxaban continued 04/03: on xarelto, is off of midronine given low hr 04/04: s/p extubation, on nc, antrum biop negative for malignant cells, peg planning Objective Objective Current Medications Medications (Trade) Dose Ordered Sig/Vaughn Route PRN Reason Start Time Stop Time Status Last Admin Dose Admin Acetaminophen (Tylenol) 650 mg Q4H PRN NG Mild Pain/Temp > 100.5 04/03/19 22:45 04/29/19 18:41 Ascorbic Acid (Vitamin C) 250 mg EVERY 12 HOURS NG 04/04/19 09:00 04/26/19 17:59 04/04/19 09:13 Chlorhexidine Gluconate (Michelle-Hex 2%) 1 applic DAILY@1999 TOPIC 04/04/19 20:00 05/03/19 19:59 Dextrose/Sodium Chloride 1,000 ml @ 75 mls/hr [id number] IV 04/04/19 13:00 05/04/19 12:59 04/04/19 13:53 Furosemide (Lasix) 20 mg EVERY 12 HOURS NG 04/04/19 09:00 05/04/19 08:59 04/04/19 09:13 Levothyroxine Sodium (Synthroid) 100 mcg DAILY@0630 NG 04/04/19 06:30 04/30/19 06:29 04/04/19 05:58 Midazolam HCl (Versed 2mg/2ml vial) 1 mg Q2H PRN IVP For Anxiety 04/03/19 22:45 04/27/19 14:44 Pantoprazole (Protonix) 40 mg DAILY IVP 04/04/19 09:00 04/26/19 08:59 04/04/19 09:14 Piperacillin Sod/ Tazobactam Sod 3.375 gm/Sodium Chloride 110 ml @ 27.5 mls/hr EVERY 8 HOURS IVPB 04/03/19 22:00 04/04/19 21:59 04/04/19 13:53 Sodium Hypochlorite (Dakin's Quarter Strength) 1 applic EVERY 12 HOURS TOPIC 04/04/19 09:00 04/27/19 00:00 04/04/19 09:13 Vancomycin HCl (Vanco rx to dose) 1 ea DAILY PRN MISC Per rx protocol 04/04/19 09:00 04/26/19 15:59 Vancomycin HCl 1 gm/Dextrose 275 ml @ 183.708 mls/hr Q24H IVPB 04/03/19 23:00 05/01/19 22:59 04/03/19 23:15 Zinc Sulfate (Zinc Sulfate) 220 mg DAILY NG 04/04/19 09:00 04/27/19 08:59 04/04/19 09:13 Last 24 Hour Vital Signs Date Time Temp Pulse Resp B/P (MAP) Pulse Ox O2 Delivery O2 Flow Rate FiO2 04/04/19 12:00 2.0 04/04/19 12:00 97.4 69 18 124/63 (83) 100 04/04/19 11:59 Nasal Cannula 2.0 Nasal Cannula 3.0 04/04/19 08:00 2.0 04/04/19 08:00 97.5 65 18 147/58 (87) 100 04/04/19 08:00 67 04/04/19 08:00 Nasal Cannula 2.0 Nasal Cannula 3.0 04/04/19 04:00 98.1 59 18 134/65 (88) 100 04/04/19 04:00 55 04/04/19 04:00 2.0 04/04/19 04:00 Nasal Cannula 2.0 Nasal Cannula 3.0 04/04/19 00:00 64 04/04/19 00:00 3.0 04/04/19 00:00 96.6 67 18 141/71 (94) 100 04/04/19 00:00 Nasal Cannula 3.0 Nasal Cannula 3.0 04/03/19 22:00 60 15 128/58 (81) 97 04/03/19 21:00 59 15 120/55 (76) 97 04/03/19 20:00 65 16 135/62 (86) 100 04/03/19 20:00 Nasal Cannula 3.0 Nasal Cannula 3.0 04/03/19 20:00 74 04/03/19 20:00 3.0 04/03/19 19:58 97 Nasal Cannula 2.0 28 04/03/19 19:00 52 15 132/48 (76) 99 04/03/19 18:00 54 15 123/47 (72) 100 04/03/19 17:00 42 113/60 (77) 100 04/03/19 16:00 Nasal Cannula 3.0 Nasal Cannula 3.0 04/03/19 16:00 98.0 54 12 123/52 (75) 99 04/03/19 16:00 3.0 04/03/19 16:00 54 04/03/19 15:08 138/62 04/03/19 15:00 56 14 123/51 (75) 100 04/03/19 14:00 56 14 138/62 (87) 100 04/03/19 13:00 53 17 115/50 (71) 100 04/03/19 12:00 Nasal Cannula 3.0 Nasal Cannula 3.0 04/03/19 12:00 3.0 04/03/19 12:00 54 04/03/19 12:00 98.2 55 15 129/51 (77) 100 04/03/19 11:00 71 17 114/50 (71) 99 04/03/19 10:00 59 16 116/51 (72) 99 04/03/19 09:08 100 Nasal Cannula 3.0 32 04/03/19 09:07 Nasal Cannula 3.0 32 04/03/19 09:00 54 13 142/49 (80) 100 04/03/19 08:00 98.0 55 12 120/51 (74) 100 04/03/19 08:00 35 04/03/19 08:00 Mechanical Ventilator 04/03/19 08:00 54 04/03/19 07:29 60 13 35 35 04/03/19 07:00 54 16 134/92 (106) 100 04/03/19 06:00 54 16 122/55 (77) 100 04/03/19 05:11 58 16 35 04/03/19 05:00 57 17 122/45 (70) 100 04/03/19 04:00 66 04/03/19 04:00 35 04/03/19 04:00 97.6 56 16 114/52 (72) 100 04/03/19 04:00 Mechanical Ventilator 04/03/19 03:30 71 18 35 04/03/19 03:00 63 16 124/80 (95) 100 04/03/19 02:00 56 16 113/36 (61) 100 04/03/19 01:00 58 17 118/43 (68) 100 04/03/19 00:40 66 18 35 04/03/19 00:00 97.6 72 16 117/47 (70) 100 04/03/19 00:00 Mechanical Ventilator 04/03/19 00:00 60 04/02/19 23:22 65 17 35 04/02/19 23:00 97 14 98/77 (84) 100 04/02/19 22:54 79 04/02/19 22:00 62 17 119/47 (71) 100 04/02/19 21:03 60 18 35 04/02/19 21:00 56 15 107/40 (62) 100 04/02/19 20:00 97.7 70 14 119/43 (68) 100 04/02/19 20:00 Mechanical Ventilator 04/02/19 20:00 35 04/02/19 19:56 58 16 35 04/02/19 19:13 109 04/02/19 19:00 83 19 102/39 (60) 100 04/02/19 18:00 68 16 135/74 (94) 100 04/02/19 17:00 96.9 59 15 140/63 (88) 100 04/02/19 16:58 61 17 35 04/02/19 16:00 59 16 134/48 (76) 100 04/02/19 16:00 35 04/02/19 16:00 Mechanical Ventilator 04/02/19 15:58 66 04/02/19 15:08 63 17 35 Intake and Output 04/03/19 04/04/19 19:00 07:00 Intake Total 82.5 ml 385.000 ml Output Total 580 ml 250 ml Balance -497.5 ml 135.000 ml IV Total 82.5 ml 385.000 ml Tube Feeding 0 ml Output Urine Total 580 ml 250 ml # Bowel Movements 3 Labs Test 04/01/19 15:15 04/02/19 06:30 04/03/19 08:00 04/03/19 22:00 Vancomycin Level Trough 21.1 ug/mL (5.0-12.0) 19.9 ug/mL (5.0-12.0) White Blood Count 12.2 K/UL (4.8-10.8) 8.3 K/UL (4.8-10.8) Red Blood Count 2.63 M/UL (4.70-6.10) 2.56 M/UL (4.70-6.10) Hemoglobin 7.6 G/DL (14.2-18.0) 7.2 G/DL (14.2-18.0) Hematocrit 23.5 % (42.0-52.0) 22.9 % (42.0-52.0) Mean Corpuscular Volume 89 FL (80-99) 89 FL (80-99) Mean Corpuscular Hemoglobin 28.8 PG (27.0-31.0) 28.0 PG (27.0-31.0) Mean Corpuscular Hemoglobin Concent 32.2 G/DL (32.0-36.0) 31.4 G/DL (32.0-36.0) Red Cell Distribution Width 15.5 % (11.6-14.8) 15.8 % (11.6-14.8) Platelet Count 179 K/UL (150-450) 223 K/UL (150-450) Mean Platelet Volume 5.1 FL (6.5-10.1) 4.9 FL (6.5-10.1) Neutrophils (%) (Auto) % (45.0-75.0) % (45.0-75.0) Lymphocytes (%) (Auto) % (20.0-45.0) % (20.0-45.0) Monocytes (%) (Auto) % (1.0-10.0) % (1.0-10.0) Eosinophils (%) (Auto) % (0.0-3.0) % (0.0-3.0) Basophils (%) (Auto) % (0.0-2.0) % (0.0-2.0) Differential Total Cells Counted 100 100 Neutrophils % (Manual) 78 % (45-75) 57 % (45-75) Lymphocytes % (Manual) 18 % (20-45) 33 % (20-45) Monocytes % (Manual) 4 % (1-10) 9 % (1-10) Eosinophils % (Manual) 0 % (0-3) 1 % (0-3) Basophils % (Manual) 0 % (0-2) 0 % (0-2) Band Neutrophils 0 % (0-8) 0 % (0-8) Platelet Estimate Adequate Adequate Platelet Morphology Normal Normal Anisocytosis 1+ 1+ Sodium Level 138 MMOL/L (136-145) 138 MMOL/L (136-145) Potassium Level 3.3 MMOL/L (3.5-5.1) 3.5 MMOL/L (3.5-5.1) Chloride Level 107 MMOL/L (98-107) 107 MMOL/L (98-107) Carbon Dioxide Level 24 MMOL/L (21-32) 26 MMOL/L (21-32) Anion Gap 7 mmol/L (5-15) 5 mmol/L (5-15) Blood Urea Nitrogen 13 mg/dL (7-18) 13 mg/dL (7-18) Creatinine 1.0 MG/DL (0.55-1.30) 0.9 MG/DL (0.55-1.30) Estimat Glomerular Filtration Rate mL/min (>60) mL/min (>60) Glucose Level 174 MG/DL (74-106) 82 MG/DL (74-106) Calcium Level 7.9 MG/DL (8.5-10.1) 8.1 MG/DL (8.5-10.1) Magnesium Level 1.6 MG/DL (1.8-2.4) 1.8 MG/DL (1.8-2.4) Hypochromasia 1+ Pro-B-Type Natriuretic Peptide 3719 pg/mL (0-125) Test 04/04/19 02:45 White Blood Count 7.4 K/UL (4.8-10.8) Red Blood Count 2.70 M/UL (4.70-6.10) Hemoglobin 7.6 G/DL (14.2-18.0) Hematocrit 24.7 % (42.0-52.0) Mean Corpuscular Volume 91 FL (80-99) Mean Corpuscular Hemoglobin 28.3 PG (27.0-31.0) Mean Corpuscular Hemoglobin Concent 30.9 G/DL (32.0-36.0) Red Cell Distribution Width 16.6 % (11.6-14.8) Platelet Count 274 K/UL (150-450) Mean Platelet Volume 5.2 FL (6.5-10.1) Neutrophils (%) (Auto) % (45.0-75.0) Lymphocytes (%) (Auto) % (20.0-45.0) Monocytes (%) (Auto) % (1.0-10.0) Eosinophils (%) (Auto) % (0.0-3.0) Basophils (%) (Auto) % (0.0-2.0) Differential Total Cells Counted 100 Neutrophils % (Manual) 71 % (45-75) Lymphocytes % (Manual) 20 % (20-45) Monocytes % (Manual) 7 % (1-10) Eosinophils % (Manual) 2 % (0-3) Basophils % (Manual) 0 % (0-2) Band Neutrophils 0 % (0-8) Platelet Estimate Adequate Platelet Morphology Normal Hypochromasia 1+ Sodium Level 142 MMOL/L (136-145) Potassium Level 3.9 MMOL/L (3.5-5.1) Chloride Level 109 MMOL/L (98-107) Carbon Dioxide Level 24 MMOL/L (21-32) Anion Gap 9 mmol/L (5-15) Blood Urea Nitrogen 11 mg/dL (7-18) Creatinine 0.8 MG/DL (0.55-1.30) Estimat Glomerular Filtration Rate mL/min (>60) Glucose Level 65 MG/DL (74-106) Calcium Level 7.9 MG/DL (8.5-10.1) Height (Feet): 6 Height (Inches): 6.00 Weight (Pounds): 186 Objective PE General: severe distress, chronically Ill ENT: moist mucus membranes, ng++ Neck: limited range of motion Respiratory: respiratory distress, rhonch, extubated, nc++ Cardiovascular: RRr, no mgr Gastrointestinal: normal inspection, soft ++ peg Msk: normal inspection Neuro: responsive, motor weakness Skin: no rash Jake Womack MD Apr 04, 2019 15:07
--- NOTE | 2019-04-04 15:51 | Diagnostic Imaging Report ---
Indication: Shortness of breath Technique: One view of the chest Comparison: 04/02/2019 Findings: Stable satisfactory positions of endotracheal and nasogastric tubes. Hazy infiltrate is present at the right lung base, stable allowing for technical differences. The pleural spaces remain clear. Heart size is normal. Impression: Unchanged, over one day, findings as above.
[2019-04-04 16:00] VITALS: BP 121/52
[2019-04-04] MEDS ORDERED: Xarelto 10mg tab NG SCH (16:30)
--- NOTE | 2019-04-04 16:55 | Progress Note ---
DATE: 04/03/2019 SUBJECTIVE: This is an 89-year-old male. More awake. Extubated this morning. Has been doing well. He is on 3 liter oxygen, saturating about 92%. He has no fever, no chills. OBJECTIVE: VITAL SIGNS: Blood pressure is 133/70, pulse 59. CHEST: Bilateral few crackles. CARDIOVASCULAR: Regular rhythm. ABDOMEN: Soft. EXTREMITIES: CCE. Has sacral decubiti stage IV. ASSESSMENT: 1. Sepsis. 2. Aspiration pneumonia. 3. Anemia. 4. Sacral decubiti. 5. Dementia. 6. Metabolic encephalopathy. PLAN: 1. Continue antibiotic, bronchodilator treatments. 2. Swallow eval tomorrow. 3. Hemoglobin 7.2. White counts are coming down. 4. Continue current treatment. Discussed with charge nurse. Pedrito Mims M.D. DR: FORREST JOB#: [id number] CC:
--- NOTE | 2019-04-04 18:56 | NUR ---
NURSE NOTES: Obtained telephone consent for EGD with possible biopsy, PEG with possible feed tube from [id number], Valentine Neely . Second witness CELINE Jones. ROSEMARY Beavers explained procedure to [id number]. Consent is in chart. Noted.
--- NOTE | 2019-04-04 19:10 | NUR ---
NURSE NOTES: Received patient from CELINE Payan. patient is observed sleeping in bed, no s/sx of pain noted at this time. patient is on 2 L O2 via NC, no s/sx of respiratory distress noted at this time. F/C is patent and intact, draining well. BECK PICC is patent and intact, running fluids at prescribed rate. bed in lowest position and locked, siderails up X3, call light within reach. will continue to monitor.
--- NOTE | 2019-04-04 19:27 | NUR ---
HAND-OFF: Report given to CELINE Bridges.
[2019-04-04 20:00] VITALS: BP 134/64
[2019-04-04] MEDS: Dyna-Hex 2% Top Sol 2oz TOPIC SCH (20:49)
[2019-04-04] MEDS: Vancomycin 1 GM in D5W 275 ML IVPB SCH (23:01)
[2019-04-05] VITALS: BP 135/72
[2019-04-05] MEDS: D5 1/2NS 1,000 ML IV SCH ×2 (02:00→18:31)
[2019-04-05 04:00] VITALS: BP_SYST 130; BP_SYST 151; BP_DIAS 65; BP_DIAS 84
[2019-04-05 05:15] LABS: HEMATOCRIT 25.6 % (42.0-52.0); HEMOGLOBIN 7.9 G/DL (14.2-18.0); MEAN CORPUSCULAR VOLUME 91 FL (80-99); PLATELET COUNT 345 K/UL (150-450); RED BLOOD COUNT 2.81 M/UL (4.70-6.10); WHITE BLOOD COUNT 6.7 K/UL (4.8-10.8)
[2019-04-05 05:49] LABS: ANION GAP 8 mmol/L (5-15); BLOOD UREA NITROGEN 9 mg/dL (7-18); CALCIUM 8.1 MG/DL (8.5-10.1); CARBON DIOXIDE 25 MMOL/L (21-32); CHLORIDE 108 MMOL/L (98-107); CREATININE 0.8 MG/DL (0.55-1.30); PHOSPHORUS 2.7 MG/DL (2.5-4.9); POTASSIUM 3.7 MMOL/L (3.5-5.1); SODIUM 141 MMOL/L (136-145)
--- NOTE | 2019-04-05 07:42 | General Progress Note ---
Assessment/Plan Problem List: (1) GI bleed ICD Codes: K92.2 - Gastrointestinal hemorrhage, unspecified SNOMED: 42990518 (2) Anemia ICD Codes: D64.9 - Anemia, unspecified SNOMED: 914953667 (3) Lung mass ICD Codes: R91.8 - Other nonspecific abnormal finding of lung field SNOMED: 806969603 (4) Decubitus skin ulcer ICD Codes: L89.90 - Pressure ulcer of unspecified site, unspecified stage SNOMED: 735079610 (5) Hypothyroidism ICD Codes: E03.9 - Hypothyroidism, unspecified SNOMED: 79598827 Status: unchanged Assessment/Plan: (1) GI bleed ICD Codes: K92.2 - Gastrointestinal hemorrhage, unspecified SNOMED: 80155515 (2) Anemia ICD Codes: D64.9 - Anemia, unspecified SNOMED: 612436082 (3) Respiratory distress ICD Codes: R06.03 - Acute respiratory distress SNOMED: 313445419 (4) Electrolyte abnormality ICD Codes: E87.8 - Other disorders of electrolyte and fluid balance, not elsewhere classified SNOMED: 519904513 Status: unchanged Assessment/Plan SUMMARY OF FINDINGS: Gastritis, otherwise normal upper endoscopic examination. ST evaluation reviewed RECOMMENDATIONS: PEG scheduled for , family has agreed. - xarelto stopped. TF electrolyte correction prn transfusions ppi pulm care cbc in am Subjective ROS Limited/Unobtainable: No Allergies: Coded Allergies: No Known Allergies (Unverified , 01/18/19) Objective Last 24 Hour Vital Signs Date Time Temp Pulse Resp B/P (MAP) Pulse Ox O2 Delivery O2 Flow Rate FiO2 04/05/19 04:00 Nasal Cannula 2.0 Nasal Cannula 2.0 04/05/19 04:00 84 04/05/19 04:00 2.0 04/05/19 04:00 97.5 63 22 130/65 (86) 100 04/05/19 00:00 70 04/05/19 00:00 Nasal Cannula 2.0 Nasal Cannula 2.0 04/05/19 00:00 98.0 66 20 135/72 (93) 100 04/05/19 00:00 2.0 04/04/19 20:07 99 Nasal Cannula 2.0 28 04/04/19 20:00 2.0 04/04/19 20:00 Nasal Cannula 2.0 Nasal Cannula 2.0 04/04/19 20:00 98.2 73 20 134/64 (87) 100 04/04/19 20:00 57 04/04/19 17:11 60 04/04/19 16:00 97.0 70 18 121/52 (75) 100 04/04/19 16:00 Nasal Cannula 2.0 Nasal Cannula 3.0 04/04/19 16:00 2.0 04/04/19 12:00 2.0 04/04/19 12:00 97.4 69 18 124/63 (83) 100 04/04/19 11:59 Nasal Cannula 2.0 Nasal Cannula 3.0 04/04/19 08:00 2.0 04/04/19 08:00 97.5 65 18 147/58 (87) 100 04/04/19 08:00 67 04/04/19 08:00 Nasal Cannula 2.0 Nasal Cannula 3.0 Intake and Output 04/04/19 04/05/19 19:00 07:00 Intake Total 75 ml 1117.416 ml Output Total 800 ml Balance 75 ml 317.416 ml IV Total 75 ml 1117.416 ml Output Urine Total 800 ml Laboratory Tests 04/05/19 03:01: White Blood Count 6.7, Red Blood Count 2.81L, Hemoglobin 7.9L, Hematocrit 25.6L , Mean Corpuscular Volume 91, Mean Corpuscular Hemoglobin 28.3, Mean Corpuscular Hemoglobin Concent 31.0L, Red Cell Distribution Width 16.0H, Platelet Count 345, Mean Platelet Volume 5.2L, Neutrophils (%) (Auto) , Lymphocytes (%) (Auto) , Monocytes (%) (Auto) , Eosinophils (%) (Auto) , Basophils (%) (Auto) , Sodium Level 141, Potassium Level 3.7, Chloride Level 108H, Carbon Dioxide Level 25, Anion Gap 8, Blood Urea Nitrogen 9, Creatinine 0.8, Estimat Glomerular Filtration Rate , Glucose Level 86, Calcium Level 8.1L, Phosphorus Level 2.7, Magnesium Level 1.8 Height (Feet): 6 Height (Inches): 6.00 Weight (Pounds): 190 General Appearance: no apparent distress EENT: normal ENT inspection Neck: supple Cardiovascular: normal rate Respiratory/Chest: decreased breath sounds Abdomen: normal bowel sounds, non tender, soft Extremities: non-tender Sergei Roche MD Apr 05, 2019 07:42
--- NOTE | 2019-04-05 07:45 | NUR ---
HAND-OFF: Report given to Jamel Haque RN. patient is in stable condition.
--- NOTE | 2019-04-05 07:45 | NUR ---
NURSE NOTES: Report received from Yuliana Beebe RN. pt resting quietly in bed awake,alert disoriented to some degree but follows command ,noted no resp distress on 2 L NC denies any c/o pain or discomfort SR ist deg HB,Kept NPO for possible EGD with PEG Tube insertion,Jose cath draining yellow urine,appears leaking ,bedsheets wet,BECK PICC line intact with IVF D51/2 NS at 75 ml/hr,skin war and dry,,SR up x2 HOB elevated ,bed lock in lowest position,will continue with plans of care.
[2019-04-05 08:00] VITALS: BP 146/98
[2019-04-05] MEDS: Ascorbic Acid 500mg tab NG SCH ×2 (09:00→21:00)
[2019-04-05] MEDS: Zinc Sulfate 220mg cap NG SCH (09:00)
--- NOTE | 2019-04-05 09:00 | NUR ---
NURSE NOTES: PO medic hold,pt NPO ,failed video swallow eval,will have EGD with PEG insertion .
--- NOTE | 2019-04-05 09:03 | Hematology/Onc Progress Note ---
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 Favor scarring, but the possibility of neoplasm cannot be ruled out. 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, r/o mets --> patient is on pressors so hold off on diagnosis until more stable --> at some point will need a tissue diagnosis, as well as further w/u --> given advanced age, hold off on any extensive immediate care --> on xarelto at this time--> Once peg placed, NOW restarted xarelto # DVT + Pulmonary embolism history could be related to mass/malignancy * HYPERCOAGULABLE DISORDER* --> on xarelto, okay to dc to snf on this --> Once peg placed, NOW restarted xarelto # Thrombocytopenia likely due to infection --> currently improved --> trend 203-->124-->121-->100k-->121k-->179k-->274-->345 --> smear reviewed and no schistocytes noted --> ok for pPi # Leukocytosis is 2/2 septic shock with uti --> has been started on abx (vanc/zosyn) --> further w/u for altered mental status --> wbc 14-->19.7-->21-->9.6-->9.3 # Iron Overload --> Ferrtin 1327 continue to monitor consider chelation therapy prior to blood tx. --> on iv iron # Renal insufficiency --> as per renal recs # Respiratory failure --> sbp per pulm --> extubated 04/03 --> currently on nc # Hypotension on fluids now better --> abx and pressors # DVT ppx --> xarelto okay to continue if plt>75k (currently on hold for peg on ) The timing of this note does not necessarily reflect the time of the patient was seen. GREATLY APPRECIATE CONSULTATION. Subjective Constitutional: Denies: no symptoms, chills, fever, malaise, weakness, other HEENT: Denies: no symptoms, eye pain, blurred vision, tearing, double vision, ear pain, ear discharge, nose pain, nose congestion, throat pain, throat swelling, mouth pain, mouth swelling, other Cardiovascular: Denies: no symptoms, chest pain, edema, irregular heart rate, lightheadedness, palpitations, syncope, other Respiratory: Denies: no symptoms, cough, shortness of breath, SOB with excertion, SOB at rest, sputum, wheezing, other Gastrointestinal/Abdominal: Denies: no symptoms, abdomen distended, abdominal pain, black stools, tarry stools, blood in stool, constipated, diarrhea, difficulty swallowing, nausea, poor appetite, poor fluid intake, rectal bleeding , vomiting, other Genitourinary: Denies: no symptoms, burning, discharge, frequency, flank pain, hematuria, incontinence, pain, urgency, other Neurologic/Psychiatric: Denies: no symptoms, anxiety, depressed, emotional problems, headache, numbness, paresthesia, pre-existing deficit, seizure, tingling, tremors, weakness, other Allergies: Coded Allergies: No Known Allergies (Unverified , 01/18/19) Subjective 03/28: labs have been reviewed, hgb is less than 7, hgb 6.5, and prbc that has been ordered 03/29: in icu, on abx, no signs of distress, blood tx completed, labs reviewed 03/30: hgb is better, remains in the icu, on pressors levo, otherwise gtf started 03/31: icu, hgb 6.8, blood tx ordered, on rivaroxaban, vent, ng 04/02: on ng/vent, remains in the icu, recovering well s/p transfu, rivaroxaban continued 04/03: on xarelto, is off of midronine given low hr 04/04: s/p extubation, on nc, antrum biop negative for malignant cells, peg planning 04/05: for peg, off xarelto, family agreed, no bleeding Objective Objective Current Medications Medications (Trade) Dose Ordered Sig/Vaughn Route PRN Reason Start Time Stop Time Status Last Admin Dose Admin Acetaminophen (Tylenol) 650 mg Q4H PRN NG Mild Pain/Temp > 100.5 04/03/19 22:45 04/29/19 18:41 Ascorbic Acid (Vitamin C) 250 mg EVERY 12 HOURS NG 04/04/19 09:00 04/26/19 17:59 04/04/19 20:49 Chlorhexidine Gluconate (Michelle-Hex 2%) 1 applic DAILY@2000 TOPIC 04/04/19 20:00 05/03/19 19:59 04/04/19 20:49 Dextrose/Sodium Chloride 1,000 ml @ 75 mls/hr [id number] IV 04/04/19 13:00 05/04/19 12:59 04/05/19 02:00 Furosemide (Lasix) 20 mg EVERY 12 HOURS NG 04/04/19 09:00 05/04/19 08:59 04/04/19 20:49 Levothyroxine Sodium (Synthroid) 100 mcg DAILY@0630 NG 04/04/19 06:30 04/30/19 06:29 04/05/19 06:29 Midazolam HCl (Versed 2mg/2ml vial) 1 mg Q2H PRN IVP For Anxiety 04/03/19 22:45 04/27/19 14:44 Pantoprazole (Protonix) 40 mg DAILY IVP 04/04/19 09:00 04/26/19 08:59 04/04/19 09:14 Sodium Hypochlorite (Dakin's Quarter Strength) 1 applic EVERY 12 HOURS TOPIC 04/04/19 09:00 04/27/19 00:00 04/04/19 20:50 Vancomycin HCl (Vanco rx to dose) 1 ea DAILY PRN MISC Per rx protocol 04/04/19 09:00 04/26/19 15:59 Vancomycin HCl 1 gm/Dextrose 275 ml @ 183.708 mls/hr Q24H IVPB 04/03/19 23:00 05/01/19 22:59 04/04/19 23:01 Zinc Sulfate (Zinc Sulfate) 220 mg DAILY NG 04/04/19 09:00 04/27/19 08:59 04/04/19 09:13 Last 24 Hour Vital Signs Date Time Temp Pulse Resp B/P (MAP) Pulse Ox O2 Delivery O2 Flow Rate FiO2 04/05/19 04:00 Nasal Cannula 2.0 Nasal Cannula 2.0 04/05/19 04:00 84 04/05/19 04:00 2.0 04/05/19 04:00 97.5 63 22 130/65 (86) 100 04/05/19 00:00 70 04/05/19 00:00 Nasal Cannula 2.0 Nasal Cannula 2.0 04/05/19 00:00 98.0 66 20 135/72 (93) 100 04/05/19 00:00 2.0 04/04/19 20:07 99 Nasal Cannula 2.0 28 04/04/19 20:00 2.0 04/04/19 20:00 Nasal Cannula 2.0 Nasal Cannula 2.0 04/04/19 20:00 98.2 73 20 134/64 (87) 100 04/04/19 20:00 57 04/04/19 17:11 60 04/04/19 16:00 97.0 70 18 121/52 (75) 100 04/04/19 16:00 Nasal Cannula 2.0 Nasal Cannula 3.0 04/04/19 16:00 2.0 04/04/19 12:00 2.0 04/04/19 12:00 97.4 69 18 124/63 (83) 100 04/04/19 11:59 Nasal Cannula 2.0 Nasal Cannula 3.0 04/04/19 08:00 2.0 04/04/19 08:00 97.5 65 18 147/58 (87) 100 04/04/19 08:00 67 04/04/19 08:00 Nasal Cannula 2.0 Nasal Cannula 3.0 04/04/19 04:00 98.1 59 18 134/65 (88) 100 04/04/19 04:00 55 04/04/19 04:00 2.0 04/04/19 04:00 Nasal Cannula 2.0 Nasal Cannula 3.0 04/04/19 00:00 64 04/04/19 00:00 3.0 04/04/19 00:00 96.6 67 18 141/71 (94) 100 04/04/19 00:00 Nasal Cannula 3.0 Nasal Cannula 3.0 04/03/19 22:00 60 15 128/58 (81) 97 04/03/19 21:00 59 15 120/55 (76) 97 04/03/19 20:00 65 16 135/62 (86) 100 04/03/19 20:00 Nasal Cannula 3.0 Nasal Cannula 3.0 04/03/19 20:00 74 04/03/19 20:00 3.0 04/03/19 19:58 97 Nasal Cannula 2.0 28 04/03/19 19:00 52 15 132/48 (76) 99 04/03/19 18:00 54 15 123/47 (72) 100 04/03/19 17:00 42 113/60 (77) 100 04/03/19 16:00 Nasal Cannula 3.0 Nasal Cannula 3.0 04/03/19 16:00 98.0 54 12 123/52 (75) 99 04/03/19 16:00 3.0 04/03/19 16:00 54 04/03/19 15:08 138/62 04/03/19 15:00 56 14 123/51 (75) 100 04/03/19 14:00 56 14 138/62 (87) 100 04/03/19 13:00 53 17 115/50 (71) 100 04/03/19 12:00 Nasal Cannula 3.0 Nasal Cannula 3.0 04/03/19 12:00 3.0 04/03/19 12:00 54 04/03/19 12:00 98.2 55 15 129/51 (77) 100 04/03/19 11:00 71 17 114/50 (71) 99 04/03/19 10:00 59 16 116/51 (72) 99 04/03/19 09:08 100 Nasal Cannula 3.0 32 04/03/19 09:07 Nasal Cannula 3.0 32 Intake and Output 04/04/19 04/05/19 19:00 07:00 Intake Total 75 ml 1192.416 ml Output Total 800 ml Balance 75 ml 392.416 ml IV Total 75 ml 1192.416 ml Output Urine Total 800 ml Labs Test 04/03/19 08:00 04/03/19 22:00 04/04/19 02:45 04/05/19 03:01 White Blood Count 8.3 K/UL (4.8-10.8) 7.4 K/UL (4.8-10.8) 6.7 K/UL (4.8-10.8) Red Blood Count 2.56 M/UL (4.70-6.10) 2.70 M/UL (4.70-6.10) 2.81 M/UL (4.70-6.10) Hemoglobin 7.2 G/DL (14.2-18.0) 7.6 G/DL (14.2-18.0) 7.9 G/DL (14.2-18.0) Hematocrit 22.9 % (42.0-52.0) 24.7 % (42.0-52.0) 25.6 % (42.0-52.0) Mean Corpuscular Volume 89 FL (80-99) 91 FL (80-99) 91 FL (80-99) Mean Corpuscular Hemoglobin 28.0 PG (27.0-31.0) 28.3 PG (27.0-31.0) 28.3 PG (27.0-31.0) Mean Corpuscular Hemoglobin Concent 31.4 G/DL (32.0-36.0) 30.9 G/DL (32.0-36.0) 31.0 G/DL (32.0-36.0) Red Cell Distribution Width 15.8 % (11.6-14.8) 16.6 % (11.6-14.8) 16.0 % (11.6-14.8) Platelet Count 223 K/UL (150-450) 274 K/UL (150-450) 345 K/UL (150-450) Mean Platelet Volume 4.9 FL (6.5-10.1) 5.2 FL (6.5-10.1) 5.2 FL (6.5-10.1) Neutrophils (%) (Auto) % (45.0-75.0) % (45.0-75.0) % (45.0-75.0) Lymphocytes (%) (Auto) % (20.0-45.0) % (20.0-45.0) % (20.0-45.0) Monocytes (%) (Auto) % (1.0-10.0) % (1.0-10.0) % (1.0-10.0) Eosinophils (%) (Auto) % (0.0-3.0) % (0.0-3.0) % (0.0-3.0) Basophils (%) (Auto) % (0.0-2.0) % (0.0-2.0) % (0.0-2.0) Differential Total Cells Counted 100 100 Neutrophils % (Manual) 57 % (45-75) 71 % (45-75) Lymphocytes % (Manual) 33 % (20-45) 20 % (20-45) Monocytes % (Manual) 9 % (1-10) 7 % (1-10) Eosinophils % (Manual) 1 % (0-3) 2 % (0-3) Basophils % (Manual) 0 % (0-2) 0 % (0-2) Band Neutrophils 0 % (0-8) 0 % (0-8) Platelet Estimate Adequate Adequate Platelet Morphology Normal Normal Hypochromasia 1+ 1+ Anisocytosis 1+ Sodium Level 138 MMOL/L (136-145) 142 MMOL/L (136-145) 141 MMOL/L (136-145) Potassium Level 3.5 MMOL/L (3.5-5.1) 3.9 MMOL/L (3.5-5.1) 3.7 MMOL/L (3.5-5.1) Chloride Level 107 MMOL/L (98-107) 109 MMOL/L (98-107) 108 MMOL/L (98-107) Carbon Dioxide Level 26 MMOL/L (21-32) 24 MMOL/L (21-32) 25 MMOL/L (21-32) Anion Gap 5 mmol/L (5-15) 9 mmol/L (5-15) 8 mmol/L (5-15) Blood Urea Nitrogen 13 mg/dL (7-18) 11 mg/dL (7-18) 9 mg/dL (7-18) Creatinine 0.9 MG/DL (0.55-1.30) 0.8 MG/DL (0.55-1.30) 0.8 MG/DL (0.55-1.30) Estimat Glomerular Filtration Rate mL/min (>60) mL/min (>60) mL/min (>60) Glucose Level 82 MG/DL (74-106) 65 MG/DL (74-106) 86 MG/DL (74-106) Calcium Level 8.1 MG/DL (8.5-10.1) 7.9 MG/DL (8.5-10.1) 8.1 MG/DL (8.5-10.1) Magnesium Level 1.8 MG/DL (1.8-2.4) 1.8 MG/DL (1.8-2.4) Pro-B-Type Natriuretic Peptide 3719 pg/mL (0-125) Vancomycin Level Trough 19.9 ug/mL (5.0-12.0) Phosphorus Level 2.7 MG/DL (2.5-4.9) Height (Feet): 6 Height (Inches): 6.00 Weight (Pounds): 190 Objective PE General: severe distress, chronically Ill ENT: moist mucus membranes, ng++ Neck: limited range of motion Respiratory: respiratory distress, rhonch, extubated, nc++ Cardiovascular: RRr, no mgr Gastrointestinal: normal inspection, soft ++ peg Msk: normal inspection Neuro: responsive, motor weakness Skin: no rash Jake Womack MD Apr 05, 2019 09:03
[2019-04-05] MEDS: Pantoprazole Inj IVP SCH (09:16)
--- NOTE | 2019-04-05 10:30 | NUR ---
PT NOTE Received MD order for PT evaluation, medical record reviewed. Spoke with nursing staff at SNF, patient is essentially bedbound at baseline. Skilled inpatient PT intervention not warranted as patient is bedbound at baseline, patient discharged from PT. Grazyna BERGER notified.
--- NOTE | 2019-04-05 10:36 | NUR ---
CASE MANAGEMENT: REVIEW 04/05/2019 SI:SEPSIS. PNEUMONITIS. T 97.5 HR 63 RR 22 B/P 130/65 SATS 100% ON 2L/NC HGB 7.9 HCT 25.6 CL 108 CA 8.1 IS:ZOSYN IV Q8H MIDODRINE NG Q8H PROTONIX IV QD VANCO IV Q12H LASIX NG Q12H XARELTO NG QPM SDU PLAN OF CARE: PEG ON 04/06
--- NOTE | 2019-04-05 10:49 | NUR ---
DISCHARGE PLANNING: NOTE PT IS FOR [place] 04/06 CLINICALS FAXED [facility] Addendum: 04/05/19 at 1448 by Radha Dewey CM BED CONFIRMED WITH ALEX AT [facility] HE WILL GO TO ROOM [address] WHEN HE IS READY
[2019-04-05] MEDS: Dakin's 0.125% Soln (Quarter Strength) 16oz TOPIC SCH ×2 (11:46→20:24)
--- NOTE | 2019-04-05 11:51 | Infectious Diseases Prog Note ---
"Assessment/Plan Assessment/Plan antibiotics : vancomycin iv A 1. MRSA sepsis 2. 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 MRSA pneumonia 4. respiratory failure resolved 5. leucocytosis improving 6. hypertension P 1. continue iv vancomycin 32 more days 2. will follow up cultures Subjective ROS Limited/Unobtainable: Yes Allergies: Coded Allergies: No Known Allergies (Unverified , 01/18/19) Objective Vital Signs Last 24 Hour Vital Signs Date Time Temp Pulse Resp B/P (MAP) Pulse Ox O2 Delivery O2 Flow Rate FiO2 04/05/19 08:00 2.0 04/05/19 08:00 96.1 60 20 146/98 (114) 100 04/05/19 04:00 Nasal Cannula 2.0 Nasal Cannula 2.0 04/05/19 04:00 84 04/05/19 04:00 2.0 04/05/19 04:00 97.5 63 22 130/65 (86) 100 04/05/19 00:00 70 04/05/19 00:00 Nasal Cannula 2.0 Nasal Cannula 2.0 04/05/19 00:00 98.0 66 20 135/72 (93) 100 04/05/19 00:00 2.0 04/04/19 20:07 99 Nasal Cannula 2.0 28 04/04/19 20:00 2.0 04/04/19 20:00 Nasal Cannula 2.0 Nasal Cannula 2.0 04/04/19 20:00 98.2 73 20 134/64 (87) 100 04/04/19 20:00 57 04/04/19 17:11 60 04/04/19 16:00 97.0 70 18 121/52 (75) 100 04/04/19 16:00 Nasal Cannula 2.0 Nasal Cannula 3.0 04/04/19 16:00 2.0 04/04/19 12:00 2.0 04/04/19 12:00 97.4 69 18 124/63 (83) 100 04/04/19 11:59 Nasal Cannula 2.0 Nasal Cannula 3.0 Height (Feet): 6 Height (Inches): 6.00 Weight (Pounds): 190 Respiratory/Chest: lungs clear Cardiovascular: normal rate, regular rhythm, no gallop/murmur Abdomen: soft, non tender Extremities: other - + edema, left arm PICC Laboratory Tests Test 04/05/19 03:01 White Blood Count 6.7 K/UL (4.8-10.8) Red Blood Count 2.81 M/UL (4.70-6.10) L Hemoglobin 7.9 G/DL (14.2-18.0) L Hematocrit 25.6 % (42.0-52.0) L Mean Corpuscular Volume 91 FL (80-99) Mean Corpuscular Hemoglobin 28.3 PG (27.0-31.0) Mean Corpuscular Hemoglobin Concent 31.0 G/DL (32.0-36.0) L Red Cell Distribution Width 16.0 % (11.6-14.8) H Platelet Count 345 K/UL (150-450) Mean Platelet Volume 5.2 FL (6.5-10.1) L Neutrophils (%) (Auto) % (45.0-75.0) Lymphocytes (%) (Auto) % (20.0-45.0) Monocytes (%) (Auto) % (1.0-10.0) Eosinophils (%) (Auto) % (0.0-3.0) Basophils (%) (Auto) % (0.0-2.0) Sodium Level 141 MMOL/L (136-145) Potassium Level 3.7 MMOL/L (3.5-5.1) Chloride Level 108 MMOL/L (98-107) H Carbon Dioxide Level 25 MMOL/L (21-32) Anion Gap 8 mmol/L (5-15) Blood Urea Nitrogen 9 mg/dL (7-18) Creatinine 0.8 MG/DL (0.55-1.30) Estimat Glomerular Filtration Rate mL/min (>60) Glucose Level 86 MG/DL (74-106) Calcium Level 8.1 MG/DL (8.5-10.1) L Phosphorus Level 2.7 MG/DL (2.5-4.9) Magnesium Level 1.8 MG/DL (1.8-2.4) Current Medications Medications (Trade) Dose Ordered Sig/Vaughn Route PRN Reason Start Time Stop Time Status Last Admin Dose Admin Acetaminophen (Tylenol) 650 mg Q4H PRN NG Mild Pain/Temp > 100.5 04/03/19 22:45 04/29/19 18:41 Ascorbic Acid (Vitamin C) 250 mg EVERY 12 HOURS NG 8/27/19 09:00 04/26/19 17:59 04/04/19 20:49 Chlorhexidine Gluconate (Michelle-Hex 2%) 1 applic DAILY@2000 TOPIC 04/04/19 20:00 05/03/19 19:59 04/04/19 20:49 Dextrose/Sodium Chloride 1,000 ml @ 75 mls/hr [id number] IV 04/04/19 13:00 05/04/19 12:59 04/05/19 02:00 Furosemide (Lasix) 20 mg EVERY 12 HOURS NG 04/04/19 09:00 05/04/19 08:59 04/04/19 20:49 Levothyroxine Sodium (Synthroid) 100 mcg DAILY@0630 NG 04/04/19 06:30 04/30/19 06:29 04/05/19 06:29 Midazolam HCl (Versed 2mg/2ml vial) 1 mg Q2H PRN IVP For Anxiety 04/03/19 22:45 04/27/19 14:44 Pantoprazole (Protonix) 40 mg DAILY IVP 04/04/19 09:00 04/26/19 08:59 04/05/19 09:16 Sodium Hypochlorite (Dakin's Quarter Strength) 1 applic EVERY 12 HOURS TOPIC 04/04/19 09:00 04/27/19 00:00 04/05/19 11:46 Vancomycin HCl (Vanco rx to dose) 1 ea DAILY PRN MISC Per rx protocol 04/04/19 09:00 04/26/19 15:59 Vancomycin HCl 1 gm/Dextrose 275 ml @ 183.708 mls/hr Q24H IVPB 04/03/19 23:00 05/01/19 22:59 04/04/19 23:01 Zinc Sulfate (Zinc Sulfate) 220 mg DAILY NG 04/04/19 09:00 04/27/19 08:59 04/04/19 09:13 Ambrocio Lemon MD Apr 05, 2019 11:51"
[2019-04-05 12:00] VITALS: BP 147/83
--- NOTE | 2019-04-05 12:00 | NUR ---
NURSE NOTES: Jose cath leaking,bed bath given,kept warm and dry,pt noted bradycardeic HR 40's when asleep,Dr Vargas aware,seen the cardiac moniitor.
--- NOTE | 2019-04-05 15:15 | Cardiac Electrophysiology PN ---
Assessment/Plan Assessment/Plan 1. S/P Septic shock. Blood Cx positive for GP cocci. . On IV antibiotics. EF 60 to 65 percent with mild diastolic dysfunction. 2. Bradycardia. Off Midodrine now but still martin at times. 3. S/P Respiratory failure, likely due to pneumonia. Extubated. The patient is on broad-spectrum IV antibiotics. 4. Mild diastolic dysfunction with elevated BNP. 5. History of PE. On Xarelto 20 daily but held for PEG 6. UTI. 7. Dysphagia, PEG tomorrow pending DW RN Subjective Subjective At times get martin. Failed swallow eval. PEG pending tomorrow EGD showed gastritis. Objective Last 24 Hour Vital Signs Date Time Temp Pulse Resp B/P (MAP) Pulse Ox O2 Delivery O2 Flow Rate FiO2 04/05/19 14:20 99 Nasal Cannula 2.0 04/05/19 12:01 Nasal Cannula 2.0 Nasal Cannula 2.0 04/05/19 12:01 2.0 04/05/19 08:00 2.0 04/05/19 08:00 96.1 60 20 146/98 (114) 100 04/05/19 08:00 Nasal Cannula 2.0 Nasal Cannula 2.0 04/05/19 08:00 57 04/05/19 04:00 Nasal Cannula 2.0 Nasal Cannula 2.0 04/05/19 04:00 84 04/05/19 04:00 2.0 04/05/19 04:00 97.5 63 22 130/65 (86) 100 04/05/19 00:00 70 04/05/19 00:00 Nasal Cannula 2.0 Nasal Cannula 2.0 04/05/19 00:00 98.0 66 20 135/72 (93) 100 04/05/19 00:00 2.0 04/04/19 20:07 99 Nasal Cannula 2.0 28 04/04/19 20:00 2.0 04/04/19 20:00 Nasal Cannula 2.0 Nasal Cannula 2.0 04/04/19 20:00 98.2 73 20 134/64 (87) 100 04/04/19 20:00 57 04/04/19 17:11 60 04/04/19 16:00 97.0 70 18 121/52 (75) 100 04/04/19 16:00 Nasal Cannula 2.0 Nasal Cannula 3.0 04/04/19 16:00 2.0 Intake and Output 04/04/19 04/05/19 19:00 07:00 Intake Total 75 ml 1192.416 ml Output Total 800 ml Balance 75 ml 392.416 ml IV Total 75 ml 1192.416 ml Output Urine Total 800 ml Laboratory Tests Test 04/05/19 03:01 White Blood Count 6.7 K/UL (4.8-10.8) Red Blood Count 2.81 M/UL (4.70-6.10) L Hemoglobin 7.9 G/DL (14.2-18.0) L Hematocrit 25.6 % (42.0-52.0) L Mean Corpuscular Volume 91 FL (80-99) Mean Corpuscular Hemoglobin 28.3 PG (27.0-31.0) Mean Corpuscular Hemoglobin Concent 31.0 G/DL (32.0-36.0) L Red Cell Distribution Width 16.0 % (11.6-14.8) H Platelet Count 345 K/UL (150-450) Mean Platelet Volume 5.2 FL (6.5-10.1) L Neutrophils (%) (Auto) % (45.0-75.0) Lymphocytes (%) (Auto) % (20.0-45.0) Monocytes (%) (Auto) % (1.0-10.0) Eosinophils (%) (Auto) % (0.0-3.0) Basophils (%) (Auto) % (0.0-2.0) Sodium Level 141 MMOL/L (136-145) Potassium Level 3.7 MMOL/L (3.5-5.1) Chloride Level 108 MMOL/L (98-107) H Carbon Dioxide Level 25 MMOL/L (21-32) Anion Gap 8 mmol/L (5-15) Blood Urea Nitrogen 9 mg/dL (7-18) Creatinine 0.8 MG/DL (0.55-1.30) Estimat Glomerular Filtration Rate mL/min (>60) Glucose Level 86 MG/DL (74-106) Calcium Level 8.1 MG/DL (8.5-10.1) L Phosphorus Level 2.7 MG/DL (2.5-4.9) Magnesium Level 1.8 MG/DL (1.8-2.4) Objective HEAD AND NECK: No JVD LUNGS: Coarse rhonchi. CARDIOVASCULAR:Regular S1 and S2 with no gallop or murmur. ABDOMEN: Soft. EXTREMITIES: No pitting edema. Christian Vargas MD Apr 05, 2019 15:15
[2019-04-05 16:00] VITALS: BP 149/86
--- NOTE | 2019-04-05 16:12 | Surgery Progress Note ---
Surgery Progress Note Subjective Additional Comments no acute events dressings being changed. Objective Last 24 Hour Vital Signs Date Time Temp Pulse Resp B/P (MAP) Pulse Ox O2 Delivery O2 Flow Rate FiO2 04/05/19 14:20 99 Nasal Cannula 2.0 28 04/05/19 12:01 Nasal Cannula 2.0 Nasal Cannula 2.0 04/05/19 12:01 2.0 04/05/19 12:00 96.0 52 20 147/83 (104) 100 04/05/19 12:00 50 04/05/19 08:00 2.0 04/05/19 08:00 96.1 60 20 146/98 (114) 100 04/05/19 08:00 Nasal Cannula 2.0 Nasal Cannula 2.0 04/05/19 08:00 57 04/05/19 04:00 Nasal Cannula 2.0 Nasal Cannula 2.0 04/05/19 04:00 84 04/05/19 04:00 2.0 04/05/19 04:00 97.5 63 22 130/65 (86) 100 04/05/19 00:00 70 04/05/19 00:00 Nasal Cannula 2.0 Nasal Cannula 2.0 04/05/19 00:00 98.0 66 20 135/72 (93) 100 04/05/19 00:00 2.0 04/04/19 20:07 99 Nasal Cannula 2.0 28 04/04/19 20:00 2.0 04/04/19 20:00 Nasal Cannula 2.0 Nasal Cannula 2.0 04/04/19 20:00 98.2 73 20 134/64 (87) 100 04/04/19 20:00 57 04/04/19 17:11 60 I&O Intake and Output 04/04/19 04/05/19 19:00 07:00 Intake Total 75 ml 1192.416 ml Output Total 800 ml Balance 75 ml 392.416 ml IV Total 75 ml 1192.416 ml Output Urine Total 800 ml Dressing: saturated Wound: other Drains: other Cardiovascular: RSR Respiratory: clear, decreased breath sounds Abdomen: soft, present bowel sounds, non-distended Extremities: no cyanosis, other Laboratory Tests Test 04/05/19 03:01 White Blood Count 6.7 K/UL (4.8-10.8) Red Blood Count 2.81 M/UL (4.70-6.10) L Hemoglobin 7.9 G/DL (14.2-18.0) L Hematocrit 25.6 % (42.0-52.0) L Mean Corpuscular Volume 91 FL (80-99) Mean Corpuscular Hemoglobin 28.3 PG (27.0-31.0) Mean Corpuscular Hemoglobin Concent 31.0 G/DL (32.0-36.0) L Red Cell Distribution Width 16.0 % (11.6-14.8) H Platelet Count 345 K/UL (150-450) Mean Platelet Volume 5.2 FL (6.5-10.1) L Neutrophils (%) (Auto) % (45.0-75.0) Lymphocytes (%) (Auto) % (20.0-45.0) Monocytes (%) (Auto) % (1.0-10.0) Eosinophils (%) (Auto) % (0.0-3.0) Basophils (%) (Auto) % (0.0-2.0) Sodium Level 141 MMOL/L (136-145) Potassium Level 3.7 MMOL/L (3.5-5.1) Chloride Level 108 MMOL/L (98-107) H Carbon Dioxide Level 25 MMOL/L (21-32) Anion Gap 8 mmol/L (5-15) Blood Urea Nitrogen 9 mg/dL (7-18) Creatinine 0.8 MG/DL (0.55-1.30) Estimat Glomerular Filtration Rate mL/min (>60) Glucose Level 86 MG/DL (74-106) Calcium Level 8.1 MG/DL (8.5-10.1) L Phosphorus Level 2.7 MG/DL (2.5-4.9) Magnesium Level 1.8 MG/DL (1.8-2.4) Plan Problems: (1) Respiratory distress (2) Decubitus skin ulcer Assessment & Plan: Pt presented on admission with multiple pressure injuries and ulcerations 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 Base of wound has mixed slough and necrosis. Edges adherent and dark . Periwound indurated with darker skin tone. Pt complained of pain when minimally palpated. Mild odor noted Full thickness ulcer R tibia. Base of wound has slough. Edges adherent and flat ,Periwound without erythema or fluctuance. Stable dry eschar noted to R hallux. edges are dark but adherent to base of wound. Periwound dark without erythema or fluctuance Stable dry eschar noted to R st metatarsal head. Periwound pale without fluctuance Stable dry eschar noted to dorsal aspects of R 3rd and 4th metatarsals. Full thickness ulcer lateral R 5th metatarsal. base of wound with some areas of necrosis and edges are black . No odor or exudate noted Stable dry eschar R heel . Periwound fluctuant without erythema. Pt complained of pain when minimally palpated. Stable dry eschar noted to dorso/flexor L foot. Periwound without erythema , induration or fluctuance Reabsorbing blood blister noted to medial L foot. Periwound without erythema or fluctuance L heel is dry and blanchable with historical scarring from previous wounds .Dry flaky skin noted to both feet. Tx.Plan: Cleanse sacral wound with Dakin's 0.125% stefani. Loose pack wound with Dakin's moist Kerlix. Apply Moisture Barrier paste to borders and cover with Optifoam drsg. Twice daily and prn. Cleanse Wound R tibia with Saline. Apply Therahoney. Cover with Optifoam drsg. Change every 3 days and prn.Apply Cavilon Skin BArrier to both heels. Cover each heel with Optifoam drsg. change every 7 days and prn APM/PHIL mattress overlay. Reposition at least every 2hours or as tolerated. Off-load heels with pillow. (3) Severe sepsis Assessment & Plan: leukocytosis resolved anemia lactic acidosis resolved improving septic MRSA bacteremia labs noted imaging noted Cont IV abx as per ID feeds wounds evaluated and care plan as above labs noted f/u cxr will follow with recs thank you DAILY ESTIMATED NEEDS: Needs based on Wound, critical care 78.6kg 25-30 kcals/kg [id number] total kcals 1.25-2 g protein/kg 98-157 g total protein Fluid per MD, on lasix NUTRITION DIAGNOSIS: 1) Increased kcal/ pro needs r/t wound healing as evidenced by full thickness sacral wound, pending updated eval. 2) Swallowing difficulty r/t respiratory status as evidenced by s/p RR, pt now orally intubated, on pressor support. CURRENT DIET: Regular-> pt now intubated ENTERAL NUTRITION RECOMMENDATIONS: Osmolite 1.5 @55ml/hr x24 hrs + Prosource BID to provide 1320ml, 1980 kcal, 83g + 22g pro, 1006ml free H2O - WHEN HEMODYNAMICALLY STABLE, rec to obtain GI access, initiate non oral feeds to meed est nutritional needs - Start Osmolite 1.5 @25ml/hr for 6 hrs, advance as tolerated 10ml/hr q4-6 hrs to goal. 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
--- NOTE | 2019-04-05 17:26 | Pulmonology Progress Note ---
Assessment/Plan Assessment/Plan (1) Severe sepsis (2) Respiratory distress (3) Dyspnea (4) Hypoxia (5) Decubitus skin ulcer (6) Lung mass (7) Multifocal pneumonia (8) Staphylococcus aureus bacteremia (9) MRSA bacteremia (10) Psoas abscess (11) Hypothyroidism Assessment/Plan: resp status stable Vanco/Zosyn (D5) per ID planned PEG for recurrent aspiration pneumonia and weight loss d/w ST, RN Subjective ROS Limited/Unobtainable: Yes Allergies: Coded Allergies: No Known Allergies (Unverified , 01/18/19) Objective Last 24 Hour Vital Signs Date Time Temp Pulse Resp B/P (MAP) Pulse Ox O2 Delivery O2 Flow Rate FiO2 04/05/19 16:00 2.0 04/05/19 16:00 Nasal Cannula 2.0 Nasal Cannula 2.0 04/05/19 16:00 47 04/05/19 14:20 99 Nasal Cannula 2.0 28 04/05/19 12:01 Nasal Cannula 2.0 Nasal Cannula 2.0 04/05/19 12:01 2.0 04/05/19 12:00 96.0 52 20 147/83 (104) 100 04/05/19 12:00 50 04/05/19 08:00 2.0 04/05/19 08:00 96.1 60 20 146/98 (114) 100 04/05/19 08:00 Nasal Cannula 2.0 Nasal Cannula 2.0 04/05/19 08:00 57 04/05/19 04:00 Nasal Cannula 2.0 Nasal Cannula 2.0 04/05/19 04:00 84 04/05/19 04:00 2.0 04/05/19 04:00 97.5 63 22 130/65 (86) 100 04/05/19 00:00 70 04/05/19 00:00 Nasal Cannula 2.0 Nasal Cannula 2.0 04/05/19 00:00 98.0 66 20 135/72 (93) 100 04/05/19 00:00 2.0 04/04/19 20:07 99 Nasal Cannula 2.0 28 04/04/19 20:00 2.0 04/04/19 20:00 Nasal Cannula 2.0 Nasal Cannula 2.0 04/04/19 20:00 98.2 73 20 134/64 (87) 100 04/04/19 20:00 57 Intake and Output 04/04/19 04/05/19 19:00 07:00 Intake Total 75 ml 1192.416 ml Output Total 800 ml Balance 75 ml 392.416 ml IV Total 75 ml 1192.416 ml Output Urine Total 800 ml Objective alert General Appearance: no acute distress HEENT: atraumatic Respiratory/Chest: lungs clear Cardiovascular: normal rate Laboratory Tests 04/05/19 03:01: White Blood Count 6.7, Red Blood Count 2.81L, Hemoglobin 7.9L, Hematocrit 25.6L , Mean Corpuscular Volume 91, Mean Corpuscular Hemoglobin 28.3, Mean Corpuscular Hemoglobin Concent 31.0L, Red Cell Distribution Width 16.0H, Platelet Count 345, Mean Platelet Volume 5.2L, Neutrophils (%) (Auto) , Lymphocytes (%) (Auto) , Monocytes (%) (Auto) , Eosinophils (%) (Auto) , Basophils (%) (Auto) , Sodium Level 141, Potassium Level 3.7, Chloride Level 108H, Carbon Dioxide Level 25, Anion Gap 8, Blood Urea Nitrogen 9, Creatinine 0.8, Estimat Glomerular Filtration Rate , Glucose Level 86, Calcium Level 8.1L, Phosphorus Level 2.7, Magnesium Level 1.8 Current Medications Medications (Trade) Dose Ordered Sig/Vaughn Route PRN Reason Start Time Stop Time Status Last Admin Dose Admin Acetaminophen (Tylenol) 650 mg Q4H PRN NG Mild Pain/Temp > 100.5 04/03/19 22:45 04/29/19 18:41 Ascorbic Acid (Vitamin C) 250 mg EVERY 12 HOURS NG 04/04/19 09:00 04/26/19 17:59 04/04/19 20:49 Chlorhexidine Gluconate (Michelle-Hex 2%) 1 applic DAILY@1999 TOPIC 04/04/19 20:00 05/03/19 19:59 04/04/19 20:49 Dextrose/Sodium Chloride 1,000 ml @ 75 mls/hr [id number] IV 04/04/19 13:00 05/04/19 12:59 04/05/19 02:00 Furosemide (Lasix) 20 mg EVERY 12 HOURS NG 04/04/19 09:00 05/04/19 08:59 04/04/19 20:49 Levothyroxine Sodium (Synthroid) 100 mcg DAILY@0630 NG 04/04/19 06:30 04/30/19 06:29 04/05/19 06:29 Midazolam HCl (Versed 2mg/2ml vial) 1 mg Q2H PRN IVP For Anxiety 04/03/19 22:45 04/27/19 14:44 Pantoprazole (Protonix) 40 mg DAILY IVP 04/04/19 09:00 04/26/19 08:59 04/05/19 09:16 Sodium Hypochlorite (Dakin's Quarter Strength) 1 applic EVERY 12 HOURS TOPIC 04/04/19 09:00 04/27/19 00:00 04/05/19 11:46 Vancomycin HCl (Vanco rx to dose) 1 ea DAILY PRN MISC Per rx protocol 04/04/19 09:00 05/08/19 08:59 Vancomycin HCl 1 gm/Dextrose 275 ml @ 183.708 mls/hr Q24H IVPB 04/03/19 23:00 05/07/19 23:59 04/04/19 23:01 Zinc Sulfate (Zinc Sulfate) 220 mg DAILY NG 04/04/19 09:00 04/27/19 08:59 04/04/19 09:13 Barry Najera MD Apr 05, 2019 17:26
--- NOTE | 2019-04-05 18:45 | Progress Note ---
DATE: 04/05/2019 SUBJECTIVE: This is elderly male came with sepsis, pneumonia, CHF, hypertension, and dysphagia. The patient had a swallow eval. He failed multiple times. I recommended ENT evaluation and has done. Recommended PEG tube. The patient is currently nonverbal, comfortable. OBJECTIVE: VITAL SIGNS: Blood pressure 110/70, pulse 60s, no fever. CHEST: Bilaterally clear. CARDIOVASCULAR: Regular rhythm. ABDOMEN: Soft. SKIN: Sacral decubitus stage IV. GENITOURINARY: Deferred. ASSESSMENT: 1. For PEG placement, he is NPO. 2. Dysphagia. 3. Sacral decubitus. 4. Pneumonia. 5. Sepsis. PLAN: 1. Continue antibiotics. 2. IV fluid. 3. Bronchodilator treatment. 4. Continue DVT prophylaxis. 5. Discussed with charge nurse. Pedrito Mims M.D. DR: FORREST JOB#: [id number] CC:
--- NOTE | 2019-04-05 19:10 | NUR ---
HAND-OFF: Report given to Yuliana Beebe RN.pt asleep no resp distress presented,daughter at bedside.
--- NOTE | 2019-04-05 19:12 | NUR ---
NURSE NOTES: Received patient from Jamel Haque RN. patient is observed sleeping in bed, arousable to voice, no s/sx of pain noted at this time. patient is on 2 L O2 via NC; no s/sx of respiratory distress noted at this time. F/C is patent and intact, draining well. BECK PICC is patent and intact, asymptomatic, running fluids at prescribed rate. bed in lowest position and locked, siderails up X3, call light within reach. will continue to monitor.
[2019-04-05 20:00] VITALS: BP 143/64
[2019-04-05] MEDS: Dyna-Hex 2% Top Sol 2oz TOPIC SCH (20:24)
[2019-04-05] MEDS: Vancomycin 1 GM in D5W 275 ML IVPB SCH (23:00)
[2019-04-06] VITALS (10 sets, daily range): BP systolic 88–151; BP diastolic 42–88
[2019-04-06] MEDS: D5 1/2NS 1,000 ML IV SCH ×2 (05:00→18:07)
--- NOTE | 2019-04-06 07:20 | NUR ---
NURSE NOTES: Received report from CELINE Bridges. Observed patient in bed, awake and verbally responsive. On O2 2L via NC, no respiratory distress noted at this time. Patient in currently on NPO at this time. Left upper arm PICC line intact and patent with IV fluids running at prescribed rate. Jose catheter intact and draining well to gravity. Safety precautions in place; bed locked, alarmed, and in lowest position, side rails up x3, and call light left within reach. Will continue to monitor.
[2019-04-06] MEDS: Zinc Sulfate 220mg cap NG SCH (09:00)
[2019-04-06] MEDS: Ascorbic Acid 500mg tab NG SCH ×2 (09:00→20:43)
[2019-04-06] MEDS: Pantoprazole Inj IVP SCH (09:11)
[2019-04-06] MEDS: Dakin's 0.125% Soln (Quarter Strength) 16oz TOPIC SCH ×2 (09:11→21:10)
[2019-04-06 09:13] LABS: INR 1.1 (0.9-1.1)
[2019-04-06 09:14] LABS: BASOPHILS % (AUTO) 1.9 % (0.0-2.0); EOSINOPHILS % (AUTO) 0.7 % (0.0-3.0); HEMATOCRIT 25.2 % (42.0-52.0); MEAN CORPUSCULAR VOLUME 90 FL (80-99); MONOCYTES % (AUTO) 7.7 % (1.0-10.0); NEUTROPHILS % (AUTO) 58.7 % (45.0-75.0); PLATELET COUNT 401 K/UL (150-450); RED BLOOD COUNT 2.82 M/UL (4.70-6.10); RED CELL DISTRIBUTION WIDTH 16.8 % (11.6-14.8); WHITE BLOOD COUNT 7.2 K/UL (4.8-10.8)
[2019-04-06 09:20] LABS: ANION GAP 5 mmol/L (5-15); BLOOD UREA NITROGEN 5 mg/dL (7-18); CALCIUM 8.3 MG/DL (8.5-10.1); CARBON DIOXIDE 27 MMOL/L (21-32); CHLORIDE 109 MMOL/L (98-107); CREATININE 0.8 MG/DL (0.55-1.30); POTASSIUM 3.2 MMOL/L (3.5-5.1); SODIUM 141 MMOL/L (136-145)
--- NOTE | 2019-04-06 09:23 | Infectious Diseases Prog Note ---
Assessment/Plan Assessment/Plan A; Recurrent MRSA sepsis Pneumonia L1-L2 discitis/osteomyelitis Psoas abscess Acute respiratory failure, resolved Anemia Gastritis Stage 4 sacral ulcer P; Continue Vancomycin X 31 days Subjective ROS Limited/Unobtainable: Yes Constitutional: Denies: fever Gastrointestinal/Abdominal: Reports: other - NPO for PEG placement Allergies: Coded Allergies: No Known Allergies (Unverified , 01/18/19) Objective Vital Signs Last 24 Hour Vital Signs Date Time Temp Pulse Resp B/P (MAP) Pulse Ox O2 Delivery O2 Flow Rate FiO2 04/06/19 04:00 Nasal Cannula 2.0 Nasal Cannula 2.0 04/06/19 04:00 106 04/06/19 04:00 97.5 104 18 97/69 (78) 96 04/06/19 00:00 100 04/06/19 00:00 98.1 104 20 116/55 (75) 95 04/06/19 00:00 Nasal Cannula 2.0 Nasal Cannula 2.0 04/05/19 20:00 Nasal Cannula 2.0 Nasal Cannula 2.0 04/05/19 20:00 96.6 74 18 143/64 (90) 100 04/05/19 20:00 98 Nasal Cannula 2.0 28 04/05/19 20:00 51 04/05/19 16:00 2.0 04/05/19 16:00 Nasal Cannula 2.0 Nasal Cannula 2.0 04/05/19 16:00 95.4 59 20 149/86 (107) 98 04/05/19 16:00 47 04/05/19 14:20 99 Nasal Cannula 2.0 28 04/05/19 12:01 Nasal Cannula 2.0 Nasal Cannula 2.0 04/05/19 12:01 2.0 04/05/19 12:00 96.0 52 20 147/83 (104) 100 04/05/19 12:00 50 Height (Feet): 6 Height (Inches): 6.00 Weight (Pounds): 179 General Appearance: no acute distress HEENT: mucous membranes moist Respiratory/Chest: lungs clear, other - oxygen by nasal cannula Cardiovascular: tachycardia, other - left arm PICC line Abdomen: soft, non tender Extremities: no edema Skin: ulcers, other - sacral Neurologic/Psychiatric: alert, responsive Laboratory Tests Test 04/06/19 08:40 White Blood Count 7.2 K/UL (4.8-10.8) Red Blood Count 2.82 M/UL (4.70-6.10) L Hemoglobin 8.0 G/DL (14.2-18.0) L Hematocrit 25.2 % (42.0-52.0) L Mean Corpuscular Volume 90 FL (80-99) Mean Corpuscular Hemoglobin 28.4 PG (27.0-31.0) Mean Corpuscular Hemoglobin Concent 31.7 G/DL (32.0-36.0) L Red Cell Distribution Width 16.8 % (11.6-14.8) H Platelet Count 401 K/UL (150-450) Mean Platelet Volume 5.1 FL (6.5-10.1) L Neutrophils (%) (Auto) 58.7 % (45.0-75.0) Lymphocytes (%) (Auto) 31.0 % (20.0-45.0) Monocytes (%) (Auto) 7.7 % (1.0-10.0) Eosinophils (%) (Auto) 0.7 % (0.0-3.0) Basophils (%) (Auto) 1.9 % (0.0-2.0) Prothrombin Time 11.7 SEC (9.30-11.50) H Prothromb Time International Ratio 1.1 (0.9-1.1) Activated Partial Thromboplast Time 33 SEC (23-33) Sodium Level Pending Potassium Level Pending Chloride Level Pending Carbon Dioxide Level Pending Blood Urea Nitrogen Pending Creatinine Pending Estimat Glomerular Filtration Rate Pending Glucose Level Pending Calcium Level Pending Current Medications Medications (Trade) Dose Ordered Sig/Vaughn Route PRN Reason Start Time Stop Time Status Last Admin Dose Admin Acetaminophen (Tylenol) 650 mg Q4H PRN NG Mild Pain/Temp > 100.5 04/03/19 22:45 04/29/19 18:41 Ascorbic Acid (Vitamin C) 250 mg EVERY 12 HOURS NG 04/04/19 09:00 04/26/19 17:59 04/04/19 20:49 Chlorhexidine Gluconate (Michelle-Hex 2%) 1 applic DAILY@2000 TOPIC 04/04/19 20:00 05/03/19 19:59 04/05/19 20:24 Dextrose/Sodium Chloride 1,000 ml @ 75 mls/hr [id number] IV 04/04/19 13:00 05/04/19 12:59 04/06/19 05:00 Furosemide (Lasix) 20 mg EVERY 12 HOURS NG 04/04/19 09:00 05/04/19 08:59 04/04/19 20:49 Levothyroxine Sodium (Synthroid) 100 mcg DAILY@0630 NG 04/04/19 06:30 04/30/19 06:29 04/05/19 06:29 Midazolam HCl (Versed 2mg/2ml vial) 1 mg Q2H PRN IVP For Anxiety 04/03/19 22:45 04/27/19 14:44 Pantoprazole (Protonix) 40 mg DAILY IVP 04/04/19 09:00 04/26/19 08:59 04/06/19 09:11 Sodium Hypochlorite (Dakin's Quarter Strength) 1 applic EVERY 12 HOURS TOPIC 04/04/19 09:00 04/27/19 00:00 04/06/19 09:11 Vancomycin HCl (Vanco rx to dose) 1 ea DAILY PRN MISC Per rx protocol 04/04/19 09:00 05/08/19 08:59 Vancomycin HCl 1 gm/Dextrose 275 ml @ 183.708 mls/hr Q24H IVPB 04/03/19 23:00 05/07/19 23:59 04/05/19 23:00 Zinc Sulfate (Zinc Sulfate) 220 mg DAILY NG 04/04/19 09:00 04/27/19 08:59 04/04/19 09:13 Isaac Martinez MD Apr 06, 2019 09:23
--- NOTE | 2019-04-06 10:07 | Anethesia Preoperative Eval ---
Anesthesia Pre-op PMH/ROS General Date of Evaluation: Apr 06, 2019 Anesthesiologist: Kyrie ASA Score: ASA 4 Mallampati Score Class I : Soft palate, uvula, fauces, pillars visible Class II: Soft palate, uvula, fauces visible Class III: Soft palate, base of uvula visible Class IV: Only hard plate visible Mallampati Classification: Class III Surgeon: Melchor Diagnosis: Dysphagia Surgical Procedure: PEG Anesthesia History: none Family History: no anesthesia problems Allergies: Coded Allergies: No Known Allergies (Unverified , 01/18/19) Medications: see eMAR Patient NPO?: Yes NPO Date: Mar 28, 2019 Past Medical History Cardiovascular: Reports: HTN; Denies: CAD, NH, valve dz, arrhythmia, other Pulmonary: Reports: other - PE; Denies: asthma, COPD, CIERA Gastrointestinal/Genitourinary: Denies: GERD, CRI, ESRD, other Neurologic/Psychiatric: Reports: dementia, CVA, depression/anxiety, other - schizophrenia, seizures; Denies: TIA Endocrine: Denies: DM, hypothyroidism, steroids, other HEENT: Denies: cataract (L), cataract (R), glaucoma, [place] DEE-NI' (L), [place] DEE-NI' (R), other Hematology/Immune: Reports: anemia; Denies: DVT, bleeding disorder, other Musculoskeletal/Integumentary: Denies: OA, RA, DJD, DDD, edema, other PSxH Narrative: unable to asses Anesthesia Pre-op Phys. Exam Physician Exam Last Vital Signs Date Time Temp Pulse Resp B/P (MAP) Pulse Ox O2 Delivery O2 Flow Rate FiO2 04/06/19 08:00 Nasal Cannula 2.0 Nasal Cannula 2.0 04/06/19 08:00 98.8 106 20 126/78 (94) 99 04/05/19 20:00 28 Constitutional: NAD Cardiovascular: RRR Respiratory: CTA Airway Exam Mallampati Score: Class III MO: limited ROM: limited Anesthesia Pre-op A/P Labs Hematology Test 04/06/19 08:40 White Blood Count 7.2 K/UL (4.8-10.8) Red Blood Count 2.82 M/UL (4.70-6.10) L Hemoglobin 8.0 G/DL (14.2-18.0) L Hematocrit 25.2 % (42.0-52.0) L Mean Corpuscular Volume 90 FL (80-99) Mean Corpuscular Hemoglobin 28.4 PG (27.0-31.0) Mean Corpuscular Hemoglobin Concent 31.7 G/DL (32.0-36.0) L Red Cell Distribution Width 16.8 % (11.6-14.8) H Platelet Count 401 K/UL (150-450) Mean Platelet Volume 5.1 FL (6.5-10.1) L Neutrophils (%) (Auto) 58.7 % (45.0-75.0) Lymphocytes (%) (Auto) 31.0 % (20.0-45.0) Monocytes (%) (Auto) 7.7 % (1.0-10.0) Eosinophils (%) (Auto) 0.7 % (0.0-3.0) Basophils (%) (Auto) 1.9 % (0.0-2.0) Coagulation Test 04/06/19 08:40 Prothrombin Time 11.7 SEC (9.30-11.50) H Prothromb Time International Ratio 1.1 (0.9-1.1) Activated Partial Thromboplast Time 33 SEC (23-33) Chemistry Test 04/06/19 08:40 Sodium Level 141 MMOL/L (136-145) Potassium Level 3.2 MMOL/L (3.5-5.1) L Chloride Level 109 MMOL/L (98-107) H Carbon Dioxide Level 27 MMOL/L (21-32) Anion Gap 5 mmol/L (5-15) Blood Urea Nitrogen 5 mg/dL (7-18) L Creatinine 0.8 MG/DL (0.55-1.30) Estimat Glomerular Filtration Rate mL/min (>60) Glucose Level 88 MG/DL (74-106) Calcium Level 8.3 MG/DL (8.5-10.1) L Risk Assessment & Plan Assessment: ASA IV Plan: MAC Status Change Before Surgery: No Pre-Antibiotics Drug: Kay Brannon MD Apr 06, 2019 10:07
--- NOTE | 2019-04-06 10:30 | NUR ---
NURSE NOTES:WOUND CARE FOLLOW-UP NOTES: Full thickness sacral pressure injury . Base of wound has 40% slough.60% pink granulation. Bone is palpable. Mild odor noted. Small amt seropurulent exudate. Periwound skin has darker skin tone without erythema or induration. (L)9cm x (W)8.5cm x (D)2.4cm. Both heels are boggy but blanchable. Loose dry skin noted to both heels. No other skin concerns noted. Wound Tx is effective and continued as ordered. All wound prevention protocols continued as implemented.
--- NOTE | 2019-04-06 10:31 | Hematology/Onc Progress Note ---
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 Favor scarring, but the possibility of neoplasm cannot be ruled out. 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, r/o mets --> patient is on pressors so hold off on diagnosis until more stable --> at some point will need a tissue diagnosis, as well as further w/u --> given advanced age, hold off on any extensive immediate care --> on xarelto at this time--> Once peg placed, NOW restarted xarelto # DVT + Pulmonary embolism history could be related to mass/malignancy * HYPERCOAGULABLE DISORDER* --> on xarelto, okay to dc to snf on this --> Once peg placed, NOW restarted xarelto # Thrombocytopenia likely due to infection --> currently improved --> trend 203-->124-->121-->100k-->121k-->179k-->274-->345-->401 --> smear reviewed and no schistocytes noted --> ok for ppi # Leukocytosis is 2/2 septic shock with uti --> has been started on abx (vanc/zosyn) --> further w/u for altered mental status --> wbc 14-->19.7-->21-->9.6-->9.3-->7.2 # Iron Overload --> Ferrtin 1327 continue to monitor consider chelation therapy prior to blood tx. --> on iv iron # Renal insufficiency --> as per renal recs # Respiratory failure --> sbp per pulm --> extubated 04/03 --> currently on nc # Hypotension on fluids now better --> abx and pressors # DVT ppx --> xarelto okay to continue if plt>75k (currently on hold for peg on ) The timing of this note does not necessarily reflect the time of the patient was seen. GREATLY APPRECIATE CONSULTATION. Subjective Allergies: Coded Allergies: No Known Allergies (Unverified , 01/18/19) Subjective 03/28: labs have been reviewed, hgb is less than 7, hgb 6.5, and prbc that has been ordered 03/29: in icu, on abx, no signs of distress, blood tx completed, labs reviewed 03/30: hgb is better, remains in the icu, on pressors levo, otherwise gtf started 03/31: icu, hgb 6.8, blood tx ordered, on rivaroxaban, vent, ng 04/02: on ng/vent, remains in the icu, recovering well s/p transfu, rivaroxaban continued 04/03: on xarelto, is off of midronine given low hr 04/04: s/p extubation, on nc, antrum biop negative for malignant cells, peg planning 04/05: for peg, off xarelto, family agreed, no bleeding 04/06: on abx, vs stable, no fever or chills, no distress Objective Objective Current Medications Medications (Trade) Dose Ordered Sig/Vaughn Route PRN Reason Start Time Stop Time Status Last Admin Dose Admin Acetaminophen (Tylenol) 650 mg Q4H PRN NG Mild Pain/Temp > 100.5 04/03/19 22:45 04/29/19 18:41 Ascorbic Acid (Vitamin C) 250 mg EVERY 12 HOURS NG 04/04/19 09:00 04/26/19 17:59 04/04/19 20:49 Chlorhexidine Gluconate (Michelle-Hex 2%) 1 applic DAILY@1999 TOPIC 04/04/19 20:00 05/03/19 19:59 04/05/19 20:24 Dextrose/Sodium Chloride 1,000 ml @ 75 mls/hr [id number] IV 04/04/19 13:00 05/04/19 12:59 04/06/19 05:00 Furosemide (Lasix) 20 mg EVERY 12 HOURS NG 04/04/19 09:00 05/04/19 08:59 04/04/19 20:49 Levothyroxine Sodium (Synthroid) 100 mcg DAILY@0630 NG 04/04/19 06:30 04/30/19 06:29 04/05/19 06:29 Midazolam HCl (Versed 2mg/2ml vial) 1 mg Q2H PRN IVP For Anxiety 04/03/19 22:45 04/27/19 14:44 Pantoprazole (Protonix) 40 mg DAILY IVP 04/04/19 09:00 04/26/19 08:59 04/06/19 09:11 Sodium Hypochlorite (Dakin's Quarter Strength) 1 applic EVERY 12 HOURS TOPIC 04/04/19 09:00 04/27/19 00:00 04/06/19 09:11 Vancomycin HCl (Vanco rx to dose) 1 ea DAILY PRN MISC Per rx protocol 04/04/19 09:00 05/08/19 08:59 Vancomycin HCl 1 gm/Dextrose 275 ml @ 183.708 mls/hr Q24H IVPB 04/03/19 23:00 05/07/19 23:59 04/05/19 23:00 Zinc Sulfate (Zinc Sulfate) 220 mg DAILY NG 04/04/19 09:00 04/27/19 08:59 04/04/19 09:13 Last 24 Hour Vital Signs Date Time Temp Pulse Resp B/P (MAP) Pulse Ox O2 Delivery O2 Flow Rate FiO2 04/06/19 08:00 Nasal Cannula 2.0 Nasal Cannula 2.0 04/06/19 08:00 98.8 106 20 126/78 (94) 99 04/06/19 04:00 Nasal Cannula 2.0 Nasal Cannula 2.0 04/06/19 04:00 106 04/06/19 04:00 97.5 104 18 97/69 (78) 96 04/06/19 00:00 100 04/06/19 00:00 98.1 104 20 116/55 (75) 95 04/06/19 00:00 Nasal Cannula 2.0 Nasal Cannula 2.0 04/05/19 20:00 Nasal Cannula 2.0 Nasal Cannula 2.0 04/05/19 20:00 96.6 74 18 143/64 (90) 100 04/05/19 20:00 98 Nasal Cannula 2.0 28 04/05/19 20:00 51 04/05/19 16:00 2.0 04/05/19 16:00 Nasal Cannula 2.0 Nasal Cannula 2.0 04/05/19 16:00 95.4 59 20 149/86 (107) 98 04/05/19 16:00 47 04/05/19 14:20 99 Nasal Cannula 2.0 28 04/05/19 12:01 Nasal Cannula 2.0 Nasal Cannula 2.0 04/05/19 12:01 2.0 04/05/19 12:00 96.0 52 20 147/83 (104) 100 04/05/19 12:00 50 04/05/19 08:00 2.0 04/05/19 08:00 96.1 60 20 146/98 (114) 100 04/05/19 08:00 Nasal Cannula 2.0 Nasal Cannula 2.0 04/05/19 08:00 57 04/05/19 04:00 Nasal Cannula 2.0 Nasal Cannula 2.0 04/05/19 04:00 84 04/05/19 04:00 2.0 04/05/19 04:00 97.5 63 22 130/65 (86) 100 04/05/19 00:00 70 04/05/19 00:00 Nasal Cannula 2.0 Nasal Cannula 2.0 04/05/19 00:00 98.0 66 20 135/72 (93) 100 04/05/19 00:00 2.0 04/04/19 20:07 99 Nasal Cannula 2.0 28 04/04/19 20:00 2.0 04/04/19 20:00 Nasal Cannula 2.0 Nasal Cannula 2.0 04/04/19 20:00 98.2 73 20 134/64 (87) 100 04/04/19 20:00 57 04/04/19 17:11 60 04/04/19 16:00 97.0 70 18 121/52 (75) 100 04/04/19 16:00 Nasal Cannula 2.0 Nasal Cannula 3.0 04/04/19 16:00 2.0 04/04/19 12:00 2.0 8/27/19 12:00 97.4 69 18 124/63 (83) 100 04/04/19 11:59 Nasal Cannula 2.0 Nasal Cannula 3.0 Intake and Output 04/05/19 04/06/19 19:00 07:00 Intake Total 675 ml 1228.666 ml Output Total 1100 ml Balance -425 ml 1228.666 ml IV Total 675 ml 1228.666 ml Output Urine Total 1100 ml Labs Test 04/03/19 22:00 04/04/19 02:45 04/05/19 03:01 04/06/19 08:40 Vancomycin Level Trough 19.9 ug/mL (5.0-12.0) White Blood Count 7.4 K/UL (4.8-10.8) 6.7 K/UL (4.8-10.8) 7.2 K/UL (4.8-10.8) Red Blood Count 2.70 M/UL (4.70-6.10) 2.81 M/UL (4.70-6.10) 2.82 M/UL (4.70-6.10) Hemoglobin 7.6 G/DL (14.2-18.0) 7.9 G/DL (14.2-18.0) 8.0 G/DL (14.2-18.0) Hematocrit 24.7 % (42.0-52.0) 25.6 % (42.0-52.0) 25.2 % (42.0-52.0) Mean Corpuscular Volume 91 FL (80-99) 91 FL (80-99) 90 FL (80-99) Mean Corpuscular Hemoglobin 28.3 PG (27.0-31.0) 28.3 PG (27.0-31.0) 28.4 PG (27.0-31.0) Mean Corpuscular Hemoglobin Concent 30.9 G/DL (32.0-36.0) 31.0 G/DL (32.0-36.0) 31.7 G/DL (32.0-36.0) Red Cell Distribution Width 16.6 % (11.6-14.8) 16.0 % (11.6-14.8) 16.8 % (11.6-14.8) Platelet Count 274 K/UL (150-450) 345 K/UL (150-450) 401 K/UL (150-450) Mean Platelet Volume 5.2 FL (6.5-10.1) 5.2 FL (6.5-10.1) 5.1 FL (6.5-10.1) Neutrophils (%) (Auto) % (45.0-75.0) % (45.0-75.0) 58.7 % (45.0-75.0) Lymphocytes (%) (Auto) % (20.0-45.0) % (20.0-45.0) 31.0 % (20.0-45.0) Monocytes (%) (Auto) % (1.0-10.0) % (1.0-10.0) 7.7 % (1.0-10.0) Eosinophils (%) (Auto) % (0.0-3.0) % (0.0-3.0) 0.7 % (0.0-3.0) Basophils (%) (Auto) % (0.0-2.0) % (0.0-2.0) 1.9 % (0.0-2.0) Differential Total Cells Counted 100 Neutrophils % (Manual) 71 % (45-75) Lymphocytes % (Manual) 20 % (20-45) Monocytes % (Manual) 7 % (1-10) Eosinophils % (Manual) 2 % (0-3) Basophils % (Manual) 0 % (0-2) Band Neutrophils 0 % (0-8) Platelet Estimate Adequate Platelet Morphology Normal Hypochromasia 1+ Sodium Level 142 MMOL/L (136-145) 141 MMOL/L (136-145) 141 MMOL/L (136-145) Potassium Level 3.9 MMOL/L (3.5-5.1) 3.7 MMOL/L (3.5-5.1) 3.2 MMOL/L (3.5-5.1) Chloride Level 109 MMOL/L (98-107) 108 MMOL/L (98-107) 109 MMOL/L (98-107) Carbon Dioxide Level 24 MMOL/L (21-32) 25 MMOL/L (21-32) 27 MMOL/L (21-32) Anion Gap 9 mmol/L (5-15) 8 mmol/L (5-15) 5 mmol/L (5-15) Blood Urea Nitrogen 11 mg/dL (7-18) 9 mg/dL (7-18) 5 mg/dL (7-18) Creatinine 0.8 MG/DL (0.55-1.30) 0.8 MG/DL (0.55-1.30) 0.8 MG/DL (0.55-1.30) Estimat Glomerular Filtration Rate mL/min (>60) mL/min (>60) mL/min (>60) Glucose Level 65 MG/DL (74-106) 86 MG/DL (74-106) 88 MG/DL (74-106) Calcium Level 7.9 MG/DL (8.5-10.1) 8.1 MG/DL (8.5-10.1) 8.3 MG/DL (8.5-10.1) Phosphorus Level 2.7 MG/DL (2.5-4.9) Magnesium Level 1.8 MG/DL (1.8-2.4) Prothrombin Time 11.7 SEC (9.30-11.50) Prothromb Time International Ratio 1.1 (0.9-1.1) Activated Partial Thromboplast Time 33 SEC (23-33) Height (Feet): 6 Height (Inches): 6.00 Weight (Pounds): 179 Objective PE General: severe distress, chronically Ill ENT: moist mucus membranes, ng++ Neck: limited range of motion Respiratory: respiratory distress, rhonch, extubated, nc++ Cardiovascular: RRr, no mgr Gastrointestinal: normal inspection, soft ++ peg Msk: normal inspection Neuro: responsive, motor weakness Skin: no rash Jake Womack MD Apr 06, 2019 10:31
--- NOTE | 2019-04-06 11:36 | NUR ---
ST NOTES: SWALLOW STATUS: PATIENT ALERT AND WANTS TO EAT/DRINK BY MOUTH. PT TOLD THAT HE WILL GET TO HAVE SOME LIMITED FOOD AND LIQUIDS WITH ASPIRATION PRECAUTIONS (ORAL GRATIFICATION) AFTER HE HAS HIS PEG PLACED TODAY OR TOMORROW. EXPLAINED TO HIM THAT HE NEEDS TO HAVE THE PEG BECAUSE HE SWALLOWING IS WEAKER AND SLOWER AND HE MAY NOT EAT/DRINK ENOUGH TO SUSTAIN ADEQUATE NUTRITION AND HYDRATION. NPO FOR NOW SO I WAS NOT ABLE TO GIVE PO TRIALS. REVIEWED IMAGES FOR MODIFIED BARIUM SWALLOW STUDY AND SHOWED HIS RN JACQUELYN. GOALS MET FOR STAFF AWARE OF ORAL CARE NEEDS. PLAN: CONTINUE WITH ORAL CARE AND NONORAL FEEDINGS TODAY OR TOMORROW. Addendum: 04/06/19 at 1155 by ALE GARNER AIRPLANE NAVIGATOR UPDATED MOD BARIUM SWALLOW STUDY SUMMARY FROM 04/04/19: MODIFIED BARIUM SWALLOW STUDY COMPLETED, SEE FULL REPORT TO FOLLOW. 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 NO ASPIRATION NOR LARYNGEAL PENETRATION WITH THIN/NECTAR/HONEY THICK LIQUID TRIALS BUT HAS HIGH RISK FOR CHRONIC TRACE TO MORE ASPIRATION BEFORE AND AFTER THE SWALLOW (HAS ASPIRATION PNA NOW AND HAD PNA DURING HIS JANUARY 2019 ADMIT). HIGHLY INEFFICIENT SWALLOW AND LIKELY UNABLE TO MEET NUTRITIONAL NEEDS (HAS SEVERE MALNUTRITION AND SIGNIFICANT WEIGHT LOSS). DEFICITS/COMPONENTS INCLUDE: Decreased labial ROM Decreased oral sensation (ORAL APRAXIA AWARENESS DEFICITS) Decreased lingual RO Dentition Permanent Missing Teeth Oral Impairment Lip Closure Tongue Control Bolus prep/mastication Bolus mcmahon/lingual motion Oral residue Init. pharyngeal swallow Pharyngeal Impairment Laryngeal elevation (LE) Ant. 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 Strategies ATTEMPTED: INCONSISTENT BENEFIT FROM CUES TO MOVE TONGUE BACK OR LOWER THE BACK OF TONGUE, MORE TIME, CHIN NEUTRAL (TENDS TO PUT IT DOWN WHICH MAKES IT HARDER FOR AP TONGUE MOVEMENT OF BOLUS AND COULD NOT DO CHIN UP) DIFFICULTY FOLLOWING COMMANDS RECOMMENDATIONS: CONSERVATIVELY, KEEP NPO FOR NOW AND CONSIDER NONORAL FEEDINGS PRIMARY MODE OF INTAKE AND CONSIDER ORAL GRATIFICATION WITH AIRPLANE NAVIGATOR THEN STAFF/FAMILY POST TRAINING IN POSTED ASPIRATION AND REFLUX PRECAUTIONS PT STILL WANTS SOME PO FOR QUALITY OF LIFE PURPOSES. CONTINUE WITH ORAL CARE AT THIS TIME. HIS DAUGHTER IS RECEPTIVE TO NONORAL FEEDINGS SINCE INTAKE HAS BEEN POOR. D/W ISAAC JAIN, RN EMI WHO SPOKE TO DR RAMIREZ. Addendum: 04/06/19 at 1209 by ALE GARNER AIRPLANE NAVIGATOR HAS CERVICAL OSTEOPHYTES BUT THEY DO NOT OBSTRUCT BOLUS FLOW.
--- NOTE | 2019-04-06 12:08 | NUR ---
RD ASSESSMENT & RECOMMENDATIONS SEE CARE ACTIVITY FOR COMPLETE ASSESSMENT DAILY ESTIMATED NEEDS: Needs based on Wound, pulmonary, CHF 78.6kg 25-35 kcals/kg 0343-0458 total kcals 1.25-2 g protein/kg 98-157 g total protein 20-25 mL/kg 1979-1071 total fluid mLs NUTRITION DIAGNOSIS: 1) Increased kcal/ pro needs r/t wound healing as evidenced by full thickness wounds @ sacrum and cinthya R tibia. 2) Swallowing difficulty r/t respiraory status as evidenced by s/p RR, pt was orally intubated, now s/p extubation, pending PEG placement + NETWORK SERVICES PROJECT MANAGER eval for oral grat. (UPDATED) CURRENT TF:NPO PO DIET RECOMMENDATIONS: ORAL GRAT -> low Na/ texture per NETWORK SERVICES PROJECT MANAGER ENTERAL NUTRITION RECOMMENDATIONS: Osmolite 1.5 @60ml/hr x22 hrs + Prosource 1 pkt BID to provide 1320ml, 198kcal, 83g + 22g prot, 1006ml free water - S/p PEG placement, initiate Osmolite 1.5 @ 20ml/hr x 6 hrs - Advance 10ml q 4-6 hrs as tolerated to goal rate. - Add Prosource 1pkt BID to meet protein needs - Hold 1 hr before and after Synthroid med - Flush per MD/ HOB over 30 degrees ADDITIONAL RECOMMENDATIONS: 1) Obtain a CALIBRATED bed wt 2) WOUND CARE: Add BRUCE BID Continue Vit C and ZnSO4 3) Monitor lytes daily, replete as needed (pt on lasix) 4) F/up with NETWORK SERVICES PROJECT MANAGER evaluation and rec for oral diet 5) Monitor lytes, replete as needed .
--- NOTE | 2019-04-06 12:12 | Surgery Progress Note ---
Surgery Progress Note Subjective Additional Comments afebrile, HD stable labs improving exam unchanged. Objective Last 24 Hour Vital Signs Date Time Temp Pulse Resp B/P (MAP) Pulse Ox O2 Delivery O2 Flow Rate FiO2 04/06/19 08:00 Nasal Cannula 2.0 Nasal Cannula 2.0 04/06/19 08:00 98.8 106 20 126/78 (94) 99 04/06/19 07:50 122 04/06/19 04:00 Nasal Cannula 2.0 Nasal Cannula 2.0 04/06/19 04:00 106 04/06/19 04:00 97.5 104 18 97/69 (78) 96 04/06/19 00:00 100 04/06/19 00:00 98.1 104 20 116/55 (75) 95 04/06/19 00:00 Nasal Cannula 2.0 Nasal Cannula 2.0 04/05/19 20:00 Nasal Cannula 2.0 Nasal Cannula 2.0 04/05/19 20:00 96.6 74 18 143/64 (90) 100 04/05/19 20:00 98 Nasal Cannula 2.0 28 04/05/19 20:00 51 04/05/19 16:00 2.0 04/05/19 16:00 Nasal Cannula 2.0 Nasal Cannula 2.0 04/05/19 16:00 95.4 59 20 149/86 (107) 98 04/05/19 16:00 47 04/05/19 14:20 99 Nasal Cannula 2.0 28 I&O Intake and Output 04/05/19 04/06/19 19:00 07:00 Intake Total 675 ml 1228.666 ml Output Total 1100 ml Balance -425 ml 1228.666 ml IV Total 675 ml 1228.666 ml Output Urine Total 1100 ml Dressing: saturated Wound: other Drains: other Cardiovascular: RSR Respiratory: decreased breath sounds Abdomen: soft, present bowel sounds, non-distended Extremities: no cyanosis, other Laboratory Tests Test 04/06/19 08:40 White Blood Count 7.2 K/UL (4.8-10.8) Red Blood Count 2.82 M/UL (4.70-6.10) L Hemoglobin 8.0 G/DL (14.2-18.0) L Hematocrit 25.2 % (42.0-52.0) L Mean Corpuscular Volume 90 FL (80-99) Mean Corpuscular Hemoglobin 28.4 PG (27.0-31.0) Mean Corpuscular Hemoglobin Concent 31.7 G/DL (32.0-36.0) L Red Cell Distribution Width 16.8 % (11.6-14.8) H Platelet Count 401 K/UL (150-450) Mean Platelet Volume 5.1 FL (6.5-10.1) L Neutrophils (%) (Auto) 58.7 % (45.0-75.0) Lymphocytes (%) (Auto) 31.0 % (20.0-45.0) Monocytes (%) (Auto) 7.7 % (1.0-10.0) Eosinophils (%) (Auto) 0.7 % (0.0-3.0) Basophils (%) (Auto) 1.9 % (0.0-2.0) Prothrombin Time 11.7 SEC (9.30-11.50) H Prothromb Time International Ratio 1.1 (0.9-1.1) Activated Partial Thromboplast Time 33 SEC (23-33) Sodium Level 141 MMOL/L (136-145) Potassium Level 3.2 MMOL/L (3.5-5.1) L Chloride Level 109 MMOL/L (98-107) H Carbon Dioxide Level 27 MMOL/L (21-32) Anion Gap 5 mmol/L (5-15) Blood Urea Nitrogen 5 mg/dL (7-18) L Creatinine 0.8 MG/DL (0.55-1.30) Estimat Glomerular Filtration Rate mL/min (>60) Glucose Level 88 MG/DL (74-106) Calcium Level 8.3 MG/DL (8.5-10.1) L Plan Problems: (1) Respiratory distress (2) Decubitus skin ulcer Assessment & Plan: Pt presented on admission with multiple pressure injuries and ulcerations 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 Base of wound has mixed slough and necrosis. Edges adherent and dark . Periwound indurated with darker skin tone. Pt complained of pain when minimally palpated. Mild odor noted Full thickness ulcer R tibia. Base of wound has slough. Edges adherent and flat ,Periwound without erythema or fluctuance. Stable dry eschar noted to R hallux. edges are dark but adherent to base of wound. Periwound dark without erythema or fluctuance Stable dry eschar noted to R st metatarsal head. Periwound pale without fluctuance Stable dry eschar noted to dorsal aspects of R 3rd and 4th metatarsals. Full thickness ulcer lateral R 5th metatarsal. base of wound with some areas of necrosis and edges are black . No odor or exudate noted Stable dry eschar R heel . Periwound fluctuant without erythema. Pt complained of pain when minimally palpated. Stable dry eschar noted to dorso/flexor L foot. Periwound without erythema , induration or fluctuance Reabsorbing blood blister noted to medial L foot. Periwound without erythema or fluctuance L heel is dry and blanchable with historical scarring from previous wounds .Dry flaky skin noted to both feet. Tx.Plan: Cleanse sacral wound with Dakin's 0.125% stefani. Loose pack wound with Dakin's moist Kerlix. Apply Moisture Barrier paste to borders and cover with Optifoam drsg. Twice daily and prn. Cleanse Wound R tibia with Saline. Apply Therahoney. Cover with Optifoam drsg. Change every 3 days and prn.Apply Cavilon Skin BArrier to both heels. Cover each heel with Optifoam drsg. change every 7 days and prn APM/PHIL mattress overlay. Reposition at least every 2hours or as tolerated. Off-load heels with pillow. (3) Severe sepsis Assessment & Plan: leukocytosis resolved anemia lactic acidosis resolved improving septic MRSA bacteremia labs noted imaging noted Cont IV abx as per ID feeds wounds evaluated and care plan as above labs noted f/u cxr will follow with recs thank you DAILY ESTIMATED NEEDS: Needs based on Wound, critical care 78.6kg 25-30 kcals/kg 5522-6889 total kcals 1.25-2 g protein/kg 98-157 g total protein Fluid per MD, on lasix NUTRITION DIAGNOSIS: 1) Increased kcal/ pro needs r/t wound healing as evidenced by full thickness sacral wound, pending updated eval. 2) Swallowing difficulty r/t respiratory status as evidenced by s/p RR, pt now orally intubated, on pressor support. CURRENT DIET: Regular-> pt now intubated ENTERAL NUTRITION RECOMMENDATIONS: Osmolite 1.5 @55ml/hr x24 hrs + Prosource BID to provide 1320ml, 1980 kcal, 83g + 22g pro, 1006ml free H2O - WHEN HEMODYNAMICALLY STABLE, rec to obtain GI access, initiate non oral feeds to meed est nutritional needs - Start Osmolite 1.5 @25ml/hr for 6 hrs, advance as tolerated 10ml/hr q4-6 hrs to goal. - Flush per MD/ HOB over 30 degrees ADDITIONAL RECOMMENDATIONS: 1) Obtain a CALIBRATED bed wt 2) Feed w/ hemodynamic stability -> currently on pressors x2 3) WOUND CARE: Add BRUCE BID w/ GI access Add VIT C 250mg BID Add ZnSO4 220mg daily x10 days 4) On lasix, monitor lytes daily 5) CRAB BUTCHER eval upon extubation (4) Dyspnea (5) Hypoxia Tawanda Alfaro Apr 06, 2019 12:12
[2019-04-06] MEDS ORDERED: LORazepam Inj 2mg/ml 1ml IV PRN (13:15)
[2019-04-06] MEDS ORDERED: DiphenhydrAMINE 50mg/ml Inj IVP PRN (13:15)
[2019-04-06] MEDS ORDERED: NS 500ML IVPB ONE (13:55)
--- NOTE | 2019-04-06 13:55 | NUR ---
NURSE NOTES: Patient transported down to surgery for EGD via stretcher accompanied by myself and Sachin, OR transporter. Patient in stable condition.
[2019-04-06] MEDS ORDERED: Lidocaine 1% MPF 10mg/ml 5ml ONE (14:00)
[2019-04-06] MEDS ORDERED: Propofol 200mg/20ml IV ONE (14:00)
--- NOTE | 2019-04-06 14:09 | Pre-Procedure Note/Attestation ---
Pre-Procedure Note/Attestation Complete Prior to Procedure Planned Procedure: not applicable Procedure Narrative: egd/peg Indications for Procedure Pre-Operative Diagnosis: dysphagia Attestation I attest that I discussed the nature of the procedure; its benefits; risks and complications; and alternatives (and the risks and benefits of such alternatives ), prior to the procedure, with the patient (or the patient's legal healthcare representative). I attest that, if there was a reasonable possibility of needing a blood transfusion, the patient (or the patient's legal healthcare representative) was given the [facility] standardized written summary, pursuant to the Matthew Elif Blood Safety Act ([place] Health and Safety Code # 1645, as amended). I attest that I re-evaluated the patient just prior to the surgery and that there has been no change in the patient's H&P, except as documented below: Sergei Roche MD Apr 06, 2019 14:09
--- NOTE | 2019-04-06 14:22 | Endoscopy Procedure Note ---
Endoscopy Procedure Note General Indication for Procedure: dysphagia Procedures Performed: EGD, PEG Operative Findings/Diagnosis: same Specimen: yes Pt Tolerated Procedure Well: Yes Estimated Blood Loss: none Anesthesia Anesthesiologist: santana Anesthesia: MAC Inserted Devices Implant(s) used?: No GI Core Measures 50 yrs or older w/o bx or poly: Not Applicable 10yrs. F/U recommended: Not Applicable Sergei Roche MD Apr 06, 2019 14:22
--- NOTE | 2019-04-06 14:30 | Immediate Post-Op Evaluation ---
Immediate Post-Op Evalulation Immediate Post-Op Evalulation Procedure: peg Date of Evaluation: Apr 06, 2019 Time of Evaluation: 14:30 IV Fluids: 100 Blood Products: 0 Estimated Blood Loss: 0 Urinary Output: 0 Blood Pressure Systolic: 88 Blood Pressure Diastolic: 50 Pulse Rate: 87 Respiratory Rate: 16 O2 Sat by Pulse Oximetry: 98 Temperature (Fahrenheit): 97.4 Pain Score (1-10): 0 Nausea: No Vomiting: No Complications 0 Patient Status: awake, reacts, patent, none Hydration Status: adequate Drug: On floor Given Within 1 Hr of Incision: Yes Kay Tolentino MD Apr 06, 2019 14:30
--- NOTE | 2019-04-06 14:32 | 48 Hour Post Anesthesia Eval ---
Post Anesthesia Evaluation Procedure: peg Date of Evaluation: Apr 06, 2019 Airway: patent Nausea: No Vomiting: No Pain Intensity: 0 Hydration Status: adequate Cardiopulmonary Status: at baseline Mental Status/LOC: patient returned to baseline Post-Anesthesia Complications: 0 Follow-up care needed: ready to discharge Kay Tolentino MD Apr 06, 2019 14:32
--- NOTE | 2019-04-06 14:45 | NUR ---
NURSE NOTES: Patient is back from EGD with PEG placement. Pt is awake, verbally responsive. VSS. No respiratory distress. Abdominal binder applied as ordered. Will continue to monitor.
--- NOTE | 2019-04-06 15:30 | NUR ---
NURSE NOTES: Ferny Beavers NP ordered to start feeding 1 hour post PEG placement. Osmolite 1.5 @ 60. Noted and will carry out.
--- NOTE | 2019-04-06 16:01 | Cardiac Electrophysiology PN ---
Assessment/Plan Assessment/Plan 1. S/P Septic shock. Blood Cx positive for GP cocci. On IV antibiotics. EF 60 to 65 percent with mild diastolic dysfunction. 2. Bradycardia. Off Midodrine 3. S/P Respiratory failure, likely due to pneumonia. Extubated. The patient is on broad-spectrum IV antibiotics. 4. Mild diastolic dysfunction with elevated BNP. 5. History of PE. Resume Xarelto 20 daily after PEG 6. UTI. 7. Dysphagia, S/P PEG DW RN Subjective Subjective Had PEG today. No CP or SOB. Objective Last 24 Hour Vital Signs Date Time Temp Pulse Resp B/P (MAP) Pulse Ox O2 Delivery O2 Flow Rate FiO2 04/06/19 14:44 97.3 78 18 103/45 99 Nasal Cannula 3 04/06/19 14:35 69 17 94/42 100 Nasal Cannula 3 04/06/19 14:30 78 15 96/49 100 Nasal Cannula 3 04/06/19 14:30 87 16 98 04/06/19 14:25 97.4 87 16 88/50 98 Nasal Cannula 3 04/06/19 12:00 Nasal Cannula 2.0 Nasal Cannula 2.0 04/06/19 12:00 98.1 87 20 118/59 (78) 99 04/06/19 11:43 65 04/06/19 08:00 Nasal Cannula 2.0 Nasal Cannula 2.0 04/06/19 08:00 98.8 106 20 126/78 (94) 99 04/06/19 07:50 122 04/06/19 04:00 Nasal Cannula 2.0 Nasal Cannula 2.0 04/06/19 04:00 106 04/06/19 04:00 97.5 104 18 97/69 (78) 96 04/06/19 00:00 100 04/06/19 00:00 98.1 104 20 116/55 (75) 95 04/06/19 00:00 Nasal Cannula 2.0 Nasal Cannula 2.0 04/05/19 20:00 Nasal Cannula 2.0 Nasal Cannula 2.0 04/05/19 20:00 96.6 74 18 143/64 (90) 100 04/05/19 20:00 98 Nasal Cannula 2.0 28 04/05/19 20:00 51 04/05/19 16:00 2.0 04/05/19 16:00 Nasal Cannula 2.0 Nasal Cannula 2.0 04/05/19 16:00 95.4 59 20 149/86 (107) 98 04/05/19 16:00 47 Intake and Output 04/05/19 04/06/19 19:00 07:00 Intake Total 675 ml 1228.666 ml Output Total 1100 ml Balance -425 ml 1228.666 ml IV Total 675 ml 1228.666 ml Output Urine Total 1100 ml Laboratory Tests Test 04/06/19 08:40 White Blood Count 7.2 K/UL (4.8-10.8) Red Blood Count 2.82 M/UL (4.70-6.10) L Hemoglobin 8.0 G/DL (14.2-18.0) L Hematocrit 25.2 % (42.0-52.0) L Mean Corpuscular Volume 90 FL (80-99) Mean Corpuscular Hemoglobin 28.4 PG (27.0-31.0) Mean Corpuscular Hemoglobin Concent 31.7 G/DL (32.0-36.0) L Red Cell Distribution Width 16.8 % (11.6-14.8) H Platelet Count 401 K/UL (150-450) Mean Platelet Volume 5.1 FL (6.5-10.1) L Neutrophils (%) (Auto) 58.7 % (45.0-75.0) Lymphocytes (%) (Auto) 31.0 % (20.0-45.0) Monocytes (%) (Auto) 7.7 % (1.0-10.0) Eosinophils (%) (Auto) 0.7 % (0.0-3.0) Basophils (%) (Auto) 1.9 % (0.0-2.0) Prothrombin Time 11.7 SEC (9.30-11.50) H Prothromb Time International Ratio 1.1 (0.9-1.1) Activated Partial Thromboplast Time 33 SEC (23-33) Sodium Level 141 MMOL/L (136-145) Potassium Level 3.2 MMOL/L (3.5-5.1) L Chloride Level 109 MMOL/L (98-107) H Carbon Dioxide Level 27 MMOL/L (21-32) Anion Gap 5 mmol/L (5-15) Blood Urea Nitrogen 5 mg/dL (7-18) L Creatinine 0.8 MG/DL (0.55-1.30) Estimat Glomerular Filtration Rate mL/min (>60) Glucose Level 88 MG/DL (74-106) Calcium Level 8.3 MG/DL (8.5-10.1) L Objective HEAD AND NECK: No JVD LUNGS: Coarse rhonchi. CARDIOVASCULAR:Regular S1 and S2 with no gallop or murmur. ABDOMEN: Soft. EXTREMITIES: No pitting edema. Christian Vargas MD Apr 06, 2019 16:01
--- NOTE | 2019-04-06 16:30 | NUR ---
NURSE NOTES: Tube feeding started at 10ml/hr at this time. HOB elevated.
--- NOTE | 2019-04-06 17:23 | Pulmonology Progress Note ---
Assessment/Plan Assessment/Plan (1) Severe sepsis (2) Respiratory distress (3) Dyspnea (4) Hypoxia (5) Decubitus skin ulcer (6) Lung mass (7) Multifocal pneumonia (8) Staphylococcus aureus bacteremia (9) MRSA bacteremia (10) Psoas abscess (11) Hypothyroidism Assessment/Plan: resp status stable abx per ID PEG for recurrent aspiration pneumonia and weight loss placed today tube feeds resume Xarelto dc planning d/w RN Subjective ROS Limited/Unobtainable: Yes Allergies: Coded Allergies: No Known Allergies (Unverified , 01/18/19) Objective Last 24 Hour Vital Signs Date Time Temp Pulse Resp B/P (MAP) Pulse Ox O2 Delivery O2 Flow Rate FiO2 04/06/19 17:03 99 Nasal Cannula 2.0 28 04/06/19 16:00 Nasal Cannula 2.0 Nasal Cannula 2.0 04/06/19 16:00 97.6 76 24 151/67 (95) 100 04/06/19 14:44 97.3 78 18 103/45 99 Nasal Cannula 3 04/06/19 14:35 69 17 94/42 100 Nasal Cannula 3 04/06/19 14:30 78 15 96/49 100 Nasal Cannula 3 04/06/19 14:30 87 16 98 04/06/19 14:25 97.4 87 16 88/50 98 Nasal Cannula 3 04/06/19 12:00 Nasal Cannula 2.0 Nasal Cannula 2.0 04/06/19 12:00 98.1 87 20 118/59 (78) 99 04/06/19 11:43 65 04/06/19 08:00 Nasal Cannula 2.0 Nasal Cannula 2.0 04/06/19 08:00 98.8 106 20 126/78 (94) 99 04/06/19 07:50 122 04/06/19 04:00 Nasal Cannula 2.0 Nasal Cannula 2.0 04/06/19 04:00 106 04/06/19 04:00 97.5 104 18 97/69 (78) 96 04/06/19 00:00 100 04/06/19 00:00 98.1 104 20 116/55 (75) 95 04/06/19 00:00 Nasal Cannula 2.0 Nasal Cannula 2.0 04/05/19 20:00 Nasal Cannula 2.0 Nasal Cannula 2.0 04/05/19 20:00 96.6 74 18 143/64 (90) 100 04/05/19 20:00 98 Nasal Cannula 2.0 28 04/05/19 20:00 51 Intake and Output 04/05/19 04/06/19 19:00 07:00 Intake Total 675 ml 1228.666 ml Output Total 1100 ml Balance -425 ml 1228.666 ml IV Total 675 ml 1228.666 ml Output Urine Total 1100 ml Objective alert General Appearance: no acute distress Respiratory/Chest: lungs clear Cardiovascular: normal rate Laboratory Tests 04/06/19 08:40: White Blood Count 7.2, Red Blood Count 2.82L, Hemoglobin 8.0L, Hematocrit 25.2L , Mean Corpuscular Volume 90, Mean Corpuscular Hemoglobin 28.4, Mean Corpuscular Hemoglobin Concent 31.7L, Red Cell Distribution Width 16.8H, Platelet Count 401, Mean Platelet Volume 5.1L, Neutrophils (%) (Auto) 58.7, Lymphocytes (%) (Auto) 31.0, Monocytes (%) (Auto) 7.7, Eosinophils (%) (Auto) 0.7, Basophils (%) (Auto) 1.9, Prothrombin Time 11.7H, Prothromb Time International Ratio 1.1, Activated Partial Thromboplast Time 33, Sodium Level 141, Potassium Level 3.2L, Chloride Level 109H, Carbon Dioxide Level 27, Anion Gap 5, Blood Urea Nitrogen 5L, Creatinine 0.8, Estimat Glomerular Filtration Rate , Glucose Level 88, Calcium Level 8.3L Current Medications Medications (Trade) Dose Ordered Sig/Vaughn Route PRN Reason Start Time Stop Time Status Last Admin Dose Admin Acetaminophen (Tylenol) 650 mg Q4H PRN NG Mild Pain/Temp > 100.5 04/03/19 22:45 04/29/19 18:41 Ascorbic Acid (Vitamin C) 250 mg EVERY 12 HOURS NG 04/04/19 09:00 04/26/19 17:59 04/04/19 20:49 Chlorhexidine Gluconate (Michelle-Hex 2%) 1 applic DAILY@1999 TOPIC 04/04/19 20:00 05/03/19 19:59 04/05/19 20:24 Dextrose/Sodium Chloride 1,000 ml @ 75 mls/hr [id number] IV 04/04/19 13:00 05/04/19 12:59 04/06/19 05:00 Furosemide (Lasix) 20 mg EVERY 12 HOURS NG 04/04/19 09:00 05/04/19 08:59 04/04/19 20:49 Levothyroxine Sodium (Synthroid) 100 mcg DAILY@0630 NG 04/04/19 06:30 04/30/19 06:29 04/05/19 06:29 Midazolam HCl (Versed 2mg/2ml vial) 1 mg Q2H PRN IVP For Anxiety 04/03/19 22:45 04/27/19 14:44 Pantoprazole (Protonix) 40 mg DAILY IVP 04/04/19 09:00 04/26/19 08:59 04/06/19 09:11 Sodium Hypochlorite (Dakin's Quarter Strength) 1 applic EVERY 12 HOURS TOPIC 04/04/19 09:00 04/27/19 00:00 04/06/19 09:11 Vancomycin HCl (Vanco rx to dose) 1 ea DAILY PRN MISC Per rx protocol 04/04/19 09:00 05/08/19 08:59 Vancomycin HCl 1 gm/Dextrose 275 ml @ 183.708 mls/hr Q24H IVPB 04/03/19 23:00 05/07/19 23:59 04/05/19 23:00 Zinc Sulfate (Zinc Sulfate) 220 mg DAILY NG 04/04/19 09:00 04/27/19 08:59 04/04/19 09:13 Barry Najera MD Apr 06, 2019 17:23
--- NOTE | 2019-04-06 17:45 | Procedure Note ---
DATE OF PROCEDURE: 04/06/2019 SURGEON: Sergei Roche M.D. PROCEDURE: Upper endoscopy with PEG placement. ANESTHESIA: Per Dr. Mittal. INSTRUMENT: Olympus adult flexible upper endoscope. INDICATION: Dysphagia. REASON FOR PROCEDURE: The procedure, risks, benefits, and possible consequences, including hemorrhage, aspiration, perforation and infection, and alternative treatments, were explained to the patient/legal guardian by Dr. Sergei Roche and the patient/legal guardian understood and accepted these risks. PROCEDURE IN DETAIL: After informed consent was obtained and the patient was adequately sedated, Olympus upper endoscope was advanced from the mouth into the second portion of the duodenum and retroflexion was performed in the stomach. Then, under endoscopic guidance and under sterile condition, a 20-Guamanian pull type of G-tube was successfully placed in the epigastric area. The distance from the tip of the tube to skin was about 2.5 cm in size. The patient tolerated the procedure very well without any complication. SUMMARY OF FINDINGS: Status post successful PEG placement. RECOMMENDATIONS: 1. Abdominal binder. 2. Elevate the head of the bed at all times. 3. G-tube flush. 4. G-tube care. 5. Start tube feeding later today. 6. The patient received a dose of antibiotics prior to this procedure. I want to thank Dr. Mims for this kind referral. Sergei Roche M.D. DR: MARIO JOB#: [id number] CC: Pedrito Mims M.D.; Fax#: [phone]
--- NOTE | 2019-04-06 18:00 | NUR ---
HAND-OFF: Report given to CELINE Vega via telephone.
--- NOTE | 2019-04-06 18:30 | Procedure Note ---
DATE OF PROCEDURE: 04/06/2019 NOTE: "VERY POOR AUDIO QUALITY" SURGEON: Sergei Roche M.D. REFERRING PHYSICIAN: Elmo Mims M.D. PROCEDURE: Upper endoscopy with PEG placement. ANESTHESIA: Per Dr. Mittal. INSTRUMENT: Olympus adult flexible upper endoscope. INDICATION: Dysphagia. The procedure, risks, benefits, and possible consequences, including hemorrhage, aspiration, perforation and infection, and alternative treatments, were explained to the patient/legal guardian by Dr. Sergei Roche and the patient/legal guardian understood and accepted these risks. PROCEDURE IN DETAIL: After informed consent was obtained and the patient was adequately sedated, Olympus upper endoscope was advanced from the mouth into the second portion of the duodenum and retroflexion was performed in the stomach. Then, under endoscopic guidance and under sterile condition, a 20-Pashto pull type of G-tube was successfully placed in the epigastric area. The distance from the tip of the tube to skin was about 2.5 cm in size. The patient tolerated the procedure very well without any complication. SUMMARY OF FINDINGS: Status post successful PEG placement. RECOMMENDATIONS: 1. Abdominal binder. 2. Elevate the head of the bed at all times. 3. G-tube flush. 4. G-tube care. 5. Start tube feeding later today. 6. The patient received a dose of antibiotics prior to this procedure. I want to thank Dr. Mims for this kind referral. Sergei Roche M.D. DR: LISA JOB#: [id number] CC: Elmo Mims MD
[2019-04-06] MEDS ORDERED: Midazolam 2mg/2ml Inj IVP PRN (18:45)
[2019-04-06] MEDS ORDERED: Acetaminophen 650mg/20.3ml NG PRN (18:45)
--- NOTE | 2019-04-06 18:45 | NUR ---
NURSE NOTES: pt. transferred from [facility] report given by Giuliana. pt in stable condition on manager treasury no signs of cardiac or respiratory distress at this time. Family member at bedside. Pt has piccline double lumen, Jose 16F for retention. Gtube placed today, feeding started @ 1630 at 10ml goal is 60m/. Belongings checked with daughter pt is missing blue booties brought from home. Pt had booties at admission and in ICU but when transferred to [facility] they were missing. They were thrown away because they were heavily soiled.
--- NOTE | 2019-04-06 18:46 | NUR ---
TRANSFER TO FLOOR: Patient transferred to Telemetry, room 212-2, per Dr Mims's order. Report given to CELINE Vega. Daughter at bedside. Patient in stable condition.
[2019-04-06] MEDS ORDERED: D5 1/2NS 1,000 ML IV SCH (19:00)
--- NOTE | 2019-04-06 19:57 | NUR ---
HAND-OFF: Report given to Tatiana Navarro. Pt in stable condition.
--- NOTE | 2019-04-06 19:58 | NUR ---
NURSE NOTES: Received patient awake, lying in semi sierra's position; resting comfortably. A/O x 2-3. Denies pain at this time. No signs of acute cardiorespiratory distress noted. Checked PICC line at left upper arm intact and flushed. No erythema, bleeding or infiltration noted. Checked G tube intact and patent. On Osmolite 1.5 feeding @10cc/hr for a goal of 60cc/hr and tolerating well. Comfort care provided. Bed at lowest position, brakes on, siderails x 3. Call light within reach. Will continue to monitory. Addendum: 04/07/19 at 0330 by Radha Tay RN NURSE NOTES: Patient is on P200 mattress for appropriate wound management.
[2019-04-06] MEDS: Dyna-Hex 2% Top Sol 2oz TOPIC SCH (20:42)
[2019-04-06] MEDS ORDERED: Vancomycin 1 GM in D5W 275 ML IVPB SCH (23:00)
[2019-04-07] VITALS: BP 141/82
--- NOTE | 2019-04-07 03:39 | NUR ---
NURSE NOTES: Patient is resting throughout the night. No change of condition noted. Will continue to monitor.
[2019-04-07 04:00] VITALS: BP 136/63
[2019-04-07 06:34] LABS: HEMATOCRIT 25.6 % (42.0-52.0); HEMOGLOBIN 7.8 G/DL (14.2-18.0); MEAN CORPUSCULAR VOLUME 92 FL (80-99); PLATELET COUNT 400 K/UL (150-450); RED CELL DISTRIBUTION WIDTH 15.6 % (11.6-14.8); WHITE BLOOD COUNT 10.8 K/UL (4.8-10.8)
[2019-04-07 06:48] LABS: ANION GAP 5 mmol/L (5-15); BLOOD UREA NITROGEN 5 mg/dL (7-18); CALCIUM 8.2 MG/DL (8.5-10.1); CARBON DIOXIDE 29 MMOL/L (21-32); CHLORIDE 108 MMOL/L (98-107); CREATININE 0.8 MG/DL (0.55-1.30); POTASSIUM 3.4 MMOL/L (3.5-5.1); SODIUM 142 MMOL/L (136-145)
--- NOTE | 2019-04-07 07:27 | NUR ---
HAND-OFF: Report given to CELINE Peter. Patient is in stable condition. Plan of care endorsed.
[2019-04-07 08:00] VITALS: BP 140/86
--- NOTE | 2019-04-07 08:09 | NUR ---
NURSE NOTES: Pt in bed in low position with bed alarm on, HOB above 30 degree, tube feeding started at 0800 at 30hr with 5mls of residual noted. Pt Ox2 calm and cooperative, on P200 mattress, pt IV PICC asymptomatic and running, pt will need to be turned Q2hrs, bed bound, denies pain, call light next to patient, feet elevated, sacral dressing changed this morning d/t pt having a bowel movement. No s/s of distress or sob noted.
[2019-04-07] MEDS: Vancomycin 750mg/D5W 275ml IVPB SCH ×2 (08:50)
[2019-04-07] MEDS: Dakin's 0.125% Soln (Quarter Strength) 16oz TOPIC SCH ×2 (09:26→20:21)
[2019-04-07] MEDS: Zinc Sulfate 220mg cap NG SCH (09:29)
[2019-04-07] MEDS: Ascorbic Acid 500mg tab NG SCH ×2 (09:29→20:28)
[2019-04-07] MEDS: Pantoprazole Inj IVP SCH (09:30)
--- NOTE | 2019-04-07 10:24 | Infectious Diseases Prog Note ---
Assessment/Plan Assessment/Plan A; Recurrent MRSA sepsis Pneumonia L1-L2 discitis/osteomyelitis Psoas abscess Acute respiratory failure, resolved Anemia Gastritis Stage 4 sacral ulcer P; Continue Vancomycin X 30 days Subjective ROS Limited/Unobtainable: Yes Gastrointestinal/Abdominal: Reports: other - had EGD & PEG placement Allergies: Coded Allergies: No Known Allergies (Unverified , 01/18/19) Objective Vital Signs Last 24 Hour Vital Signs Date Time Temp Pulse Resp B/P (MAP) Pulse Ox O2 Delivery O2 Flow Rate FiO2 04/07/19 08:24 Nasal Cannula 2.0 Nasal Cannula 2.0 04/07/19 08:00 96.6 72 18 140/86 (104) 100 04/07/19 04:00 89 04/07/19 04:00 97.3 75 19 136/63 (87) 96 04/07/19 03:41 93 Nasal Cannula 3.0 32 04/07/19 00:00 77 04/07/19 00:00 97.7 78 19 141/82 (101) 100 04/06/19 21:00 Nasal Cannula 2.0 Nasal Cannula 2.0 04/06/19 20:00 96.6 81 20 136/88 (104) 100 04/06/19 20:00 73 04/06/19 17:03 99 Nasal Cannula 2.0 28 04/06/19 16:00 Nasal Cannula 2.0 Nasal Cannula 2.0 04/06/19 16:00 97.6 76 24 151/67 (95) 100 04/06/19 15:34 58 04/06/19 14:44 97.3 78 18 103/45 99 Nasal Cannula 3 04/06/19 14:35 69 17 94/42 100 Nasal Cannula 3 04/06/19 14:30 78 15 96/49 100 Nasal Cannula 3 04/06/19 14:30 87 16 98 04/06/19 14:25 97.4 87 16 88/50 98 Nasal Cannula 3 04/06/19 12:00 Nasal Cannula 2.0 Nasal Cannula 2.0 04/06/19 12:00 98.1 87 20 118/59 (78) 99 04/06/19 11:43 65 Height (Feet): 6 Height (Inches): 6.00 Weight (Pounds): 198 General Appearance: no acute distress HEENT: mucous membranes moist Respiratory/Chest: lungs clear Cardiovascular: normal rate, other - left arm PICC line Abdomen: soft, non tender, other - GT feeding Extremities: no edema Neurologic/Psychiatric: alert, responsive, disoriented Laboratory Tests Test 04/06/19 22:29 04/07/19 05:46 Vancomycin Level Trough 21.2 ug/mL (5.0-12.0) H White Blood Count 10.8 K/UL (4.8-10.8) Red Blood Count 2.80 M/UL (4.70-6.10) L Hemoglobin 7.8 G/DL (14.2-18.0) L Hematocrit 25.6 % (42.0-52.0) L Mean Corpuscular Volume 92 FL (80-99) Mean Corpuscular Hemoglobin 28.0 PG (27.0-31.0) Mean Corpuscular Hemoglobin Concent 30.6 G/DL (32.0-36.0) L Red Cell Distribution Width 15.6 % (11.6-14.8) H Platelet Count 400 K/UL (150-450) Mean Platelet Volume 5.1 FL (6.5-10.1) L Neutrophils (%) (Auto) % (45.0-75.0) Lymphocytes (%) (Auto) % (20.0-45.0) Monocytes (%) (Auto) % (1.0-10.0) Eosinophils (%) (Auto) % (0.0-3.0) Basophils (%) (Auto) % (0.0-2.0) Differential Total Cells Counted 100 Neutrophils % (Manual) 88 % (45-75) H Lymphocytes % (Manual) 11 % (20-45) L Monocytes % (Manual) 1 % (1-10) Eosinophils % (Manual) 0 % (0-3) Basophils % (Manual) 0 % (0-2) Band Neutrophils 0 % (0-8) Platelet Estimate Adequate Platelet Morphology Normal Hypochromasia 1+ Anisocytosis 1+ Sodium Level 142 MMOL/L (136-145) Potassium Level 3.4 MMOL/L (3.5-5.1) L Chloride Level 108 MMOL/L (98-107) H Carbon Dioxide Level 29 MMOL/L (21-32) Anion Gap 5 mmol/L (5-15) Blood Urea Nitrogen 5 mg/dL (7-18) L Creatinine 0.8 MG/DL (0.55-1.30) Estimat Glomerular Filtration Rate mL/min (>60) Glucose Level 101 MG/DL (74-106) Calcium Level 8.2 MG/DL (8.5-10.1) L Current Medications Medications (Trade) Dose Ordered Sig/Vaughn Route PRN Reason Start Time Stop Time Status Last Admin Dose Admin Acetaminophen (Tylenol) 650 mg Q4H PRN NG Mild Pain/Temp > 100.5 04/06/19 18:45 04/29/19 18:41 04/07/19 00:44 Ascorbic Acid (Vitamin C) 250 mg EVERY 12 HOURS NG 04/06/19 21:00 04/26/19 17:59 04/07/19 09:29 Chlorhexidine Gluconate (Michelle-Hex 2%) 1 applic DAILY@2000 TOPIC 04/06/19 20:00 05/03/19 19:59 04/06/19 20:42 Dextrose/Sodium Chloride 1,000 ml @ 75 mls/hr [id number] IV 04/06/19 19:00 05/04/19 18:59 04/06/19 19:56 Furosemide (Lasix) 20 mg EVERY 12 HOURS NG 04/06/19 21:00 05/04/19 08:59 04/07/19 09:29 Levothyroxine Sodium (Synthroid) 100 mcg DAILY@0630 NG 04/07/19 06:30 04/30/19 06:29 04/07/19 06:40 Midazolam HCl (Versed 2mg/2ml vial) 1 mg Q2H PRN IVP For Anxiety 04/06/19 18:45 04/27/19 14:44 Pantoprazole (Protonix) 40 mg DAILY IVP 04/07/19 09:00 04/26/19 08:59 04/07/19 09:30 Sodium Hypochlorite (Dakin's Quarter Strength) 1 applic EVERY 12 HOURS TOPIC 04/06/19 21:00 04/27/19 00:00 04/07/19 09:26 Vancomycin HCl (Vanco rx to dose) 1 ea DAILY PRN MISC Per rx protocol 04/07/19 09:00 05/08/19 08:59 Vancomycin HCl 750 mg/Dextrose 275 ml @ 183.333 mls/hr Q24H IVPB 04/07/19 08:00 04/12/19 07:59 04/07/19 08:50 Zinc Sulfate (Zinc Sulfate) 220 mg DAILY NG 04/07/19 09:00 04/27/19 08:59 04/07/19 09:29 Isaac Martinez MD Apr 07, 2019 10:24
--- NOTE | 2019-04-07 11:28 | NUR ---
ST NOTES: PATIENT HAS PEG PLACED YESTERDAY. HE WANTS TO HAVE SOME PO INTAKE FOR QUALITY OF LIFE PURPOSES. WILL POST ASPIRATION PRECAUTIONS AND SWALLOWING STRATEGIES FOR INTAKE OF A LIQUIFIED PUREED LIKE NECTAR THICK SOUP CONSISTENCY (TSP ONLY AND NO TABLESPOON/CUP/STRAW). OK TO HAVE TSP FREE WATER EDUCATED STAFF IN POSTED PRECAUTIONS AND D/W GI PRECISION INSPECTOR ISAAC. PLAN: INITIATE ORAL GRAT DIET WITH ASPIRATION AND REFLUX PRECAUTIONS. CONTINUE WITH NONORAL FEEDINGS AND ORAL CARE CONSIDER ENT LOOK AT 2-3 MASSES UNDER HIS TONGUE ( IP OR OP OR SNF IF DC) Addendum: 04/07/19 at 1133 by ALE GARNER CNC OPERATOR WILL D/W ABOVE WITH HIS FAMILY MEMBER LATER TODAY. Addendum: 04/07/19 at 1135 by ALE GARNER CNC OPERATOR WILL D/W ABOVE WITH HIS FAMILY MEMBER LATER TODAY.
--- NOTE | 2019-04-07 11:49 | GI Progress Note ---
Assessment/Plan Problems: (1) GI bleed ICD Codes: K92.2 - Gastrointestinal hemorrhage, unspecified SNOMED: 08543794 (2) Anemia ICD Codes: D64.9 - Anemia, unspecified SNOMED: 277262714 (3) Respiratory distress ICD Codes: R06.03 - Acute respiratory distress SNOMED: 327424526 (4) Electrolyte abnormality ICD Codes: E87.8 - Other disorders of electrolyte and fluid balance, not elsewhere classified SNOMED: 128294259 Status: stable Status Narrative Discussed with Dr. Roche. Assessment/Plan SUMMARY OF FINDINGS: Gastritis, otherwise normal upper endoscopic examination. ST evaluation reviewed s/p PEG RECOMMENDATIONS: resume Xarelto per primary GTF per RD okay for oral gratification per ST electrolyte correction prn transfusions ppi pulm care cbc in am The patient was seen and examined at bedside and all new and available data was reviewed in the patients chart. I agree with the above findings, impression and plan. (Patient seen earlier today. Signature stamp does not reflect patient encounter time.). - Sergei Roche MD Subjective Subjective limited Objective Last 24 Hour Vital Signs Date Time Temp Pulse Resp B/P (MAP) Pulse Ox O2 Delivery O2 Flow Rate FiO2 04/07/19 08:26 71 04/07/19 08:24 Nasal Cannula 2.0 Nasal Cannula 2.0 04/07/19 08:00 96.6 72 18 140/86 (104) 100 04/07/19 04:00 89 04/07/19 04:00 97.3 75 19 136/63 (87) 96 04/07/19 03:41 93 Nasal Cannula 3.0 32 04/07/19 00:00 77 04/07/19 00:00 97.7 78 19 141/82 (101) 100 04/06/19 21:00 Nasal Cannula 2.0 Nasal Cannula 2.0 04/06/19 20:00 96.6 81 20 136/88 (104) 100 04/06/19 20:00 73 04/06/19 17:03 99 Nasal Cannula 2.0 28 04/06/19 16:00 Nasal Cannula 2.0 Nasal Cannula 2.0 04/06/19 16:00 97.6 76 24 151/67 (95) 100 04/06/19 15:34 58 04/06/19 14:44 97.3 78 18 103/45 99 Nasal Cannula 3 04/06/19 14:35 69 17 94/42 100 Nasal Cannula 3 04/06/19 14:30 78 15 96/49 100 Nasal Cannula 3 04/06/19 14:30 87 16 98 04/06/19 14:25 97.4 87 16 88/50 98 Nasal Cannula 3 04/06/19 12:00 Nasal Cannula 2.0 Nasal Cannula 2.0 04/06/19 12:00 98.1 87 20 118/59 (78) 99 Intake and Output 04/06/19 04/07/19 19:00 07:00 Intake Total 1115 ml 1155 ml Output Total 800 ml 1000 ml Balance 315 ml 155 ml Intake Free Water 50 ml 150 ml IV Total 1045 ml 825 ml Tube Feeding 20 ml 180 ml Output Urine Total 800 ml 1000 ml Estimated Blood Loss 0 ml Laboratory Tests Test 04/06/19 22:29 04/07/19 05:46 Vancomycin Level Trough 21.2 ug/mL (5.0-12.0) H White Blood Count 10.8 K/UL (4.8-10.8) Red Blood Count 2.80 M/UL (4.70-6.10) L Hemoglobin 7.8 G/DL (14.2-18.0) L Hematocrit 25.6 % (42.0-52.0) L Mean Corpuscular Volume 92 FL (80-99) Mean Corpuscular Hemoglobin 28.0 PG (27.0-31.0) Mean Corpuscular Hemoglobin Concent 30.6 G/DL (32.0-36.0) L Red Cell Distribution Width 15.6 % (11.6-14.8) H Platelet Count 400 K/UL (150-450) Mean Platelet Volume 5.1 FL (6.5-10.1) L Neutrophils (%) (Auto) % (45.0-75.0) Lymphocytes (%) (Auto) % (20.0-45.0) Monocytes (%) (Auto) % (1.0-10.0) Eosinophils (%) (Auto) % (0.0-3.0) Basophils (%) (Auto) % (0.0-2.0) Differential Total Cells Counted 100 Neutrophils % (Manual) 88 % (45-75) H Lymphocytes % (Manual) 11 % (20-45) L Monocytes % (Manual) 1 % (1-10) Eosinophils % (Manual) 0 % (0-3) Basophils % (Manual) 0 % (0-2) Band Neutrophils 0 % (0-8) Platelet Estimate Adequate Platelet Morphology Normal Hypochromasia 1+ Anisocytosis 1+ Sodium Level 142 MMOL/L (136-145) Potassium Level 3.4 MMOL/L (3.5-5.1) L Chloride Level 108 MMOL/L (98-107) H Carbon Dioxide Level 29 MMOL/L (21-32) Anion Gap 5 mmol/L (5-15) Blood Urea Nitrogen 5 mg/dL (7-18) L Creatinine 0.8 MG/DL (0.55-1.30) Estimat Glomerular Filtration Rate mL/min (>60) Glucose Level 101 MG/DL (74-106) Calcium Level 8.2 MG/DL (8.5-10.1) L Height (Feet): 6 Height (Inches): 6.00 Weight (Pounds): 198 General Appearance: no apparent distress Cardiovascular: normal rate Respiratory/Chest: normal breath sounds, no respiratory distress Abdominal Exam: normal bowel sounds, non tender, soft, GT site - c/d/i Tahir Beavers NP Apr 07, 2019 11:49
[2019-04-07 12:00] VITALS: BP 139/65
--- NOTE | 2019-04-07 13:07 | Cardiac Electrophysiology PN ---
Assessment/Plan Assessment/Plan 1. S/P Septic shock. Blood Cx positive for GP cocci. On IV antibiotics. EF 60 to 65 percent with mild diastolic dysfunction. 2. Bradycardia. Off Midodrine 3. S/P Respiratory failure, likely due to pneumonia. On broad-spectrum IV antibiotics. 4. Mild diastolic dysfunction with elevated BNP. 5. History of PE. Resume Xarelto 20 daily if OK with GI FU Dr Najera 6. UTI. 7. Dysphagia, S/P PEG DW RN Subjective Subjective Has PEG feeding going on. No CP or SOB. Objective Last 24 Hour Vital Signs Date Time Temp Pulse Resp B/P (MAP) Pulse Ox O2 Delivery O2 Flow Rate FiO2 04/07/19 08:26 71 04/07/19 08:24 Nasal Cannula 2.0 Nasal Cannula 2.0 04/07/19 08:00 96.6 72 18 140/86 (104) 100 04/07/19 04:00 89 04/07/19 04:00 97.3 75 19 136/63 (87) 96 04/07/19 03:41 93 Nasal Cannula 3.0 32 04/07/19 00:00 77 04/07/19 00:00 97.7 78 19 141/82 (101) 100 04/06/19 21:00 Nasal Cannula 2.0 Nasal Cannula 2.0 04/06/19 20:00 96.6 81 20 136/88 (104) 100 04/06/19 20:00 73 04/06/19 17:03 99 Nasal Cannula 2.0 28 04/06/19 16:00 Nasal Cannula 2.0 Nasal Cannula 2.0 04/06/19 16:00 97.6 76 24 151/67 (95) 100 04/06/19 15:34 58 04/06/19 14:44 97.3 78 18 103/45 99 Nasal Cannula 3 04/06/19 14:35 69 17 94/42 100 Nasal Cannula 3 04/06/19 14:30 78 15 96/49 100 Nasal Cannula 3 04/06/19 14:30 87 16 98 04/06/19 14:25 97.4 87 16 88/50 98 Nasal Cannula 3 Intake and Output 04/06/19 04/07/19 19:00 07:00 Intake Total 1115 ml 1155 ml Output Total 800 ml 1000 ml Balance 315 ml 155 ml Intake Free Water 50 ml 150 ml IV Total 1045 ml 825 ml Tube Feeding 20 ml 180 ml Output Urine Total 800 ml 1000 ml Estimated Blood Loss 0 ml Laboratory Tests Test 04/06/19 22:29 04/07/19 05:46 Vancomycin Level Trough 21.2 ug/mL (5.0-12.0) H White Blood Count 10.8 K/UL (4.8-10.8) Red Blood Count 2.80 M/UL (4.70-6.10) L Hemoglobin 7.8 G/DL (14.2-18.0) L Hematocrit 25.6 % (42.0-52.0) L Mean Corpuscular Volume 92 FL (80-99) Mean Corpuscular Hemoglobin 28.0 PG (27.0-31.0) Mean Corpuscular Hemoglobin Concent 30.6 G/DL (32.0-36.0) L Red Cell Distribution Width 15.6 % (11.6-14.8) H Platelet Count 400 K/UL (150-450) Mean Platelet Volume 5.1 FL (6.5-10.1) L Neutrophils (%) (Auto) % (45.0-75.0) Lymphocytes (%) (Auto) % (20.0-45.0) Monocytes (%) (Auto) % (1.0-10.0) Eosinophils (%) (Auto) % (0.0-3.0) Basophils (%) (Auto) % (0.0-2.0) Differential Total Cells Counted 100 Neutrophils % (Manual) 88 % (45-75) H Lymphocytes % (Manual) 11 % (20-45) L Monocytes % (Manual) 1 % (1-10) Eosinophils % (Manual) 0 % (0-3) Basophils % (Manual) 0 % (0-2) Band Neutrophils 0 % (0-8) Platelet Estimate Adequate Platelet Morphology Normal Hypochromasia 1+ Anisocytosis 1+ Sodium Level 142 MMOL/L (136-145) Potassium Level 3.4 MMOL/L (3.5-5.1) L Chloride Level 108 MMOL/L (98-107) H Carbon Dioxide Level 29 MMOL/L (21-32) Anion Gap 5 mmol/L (5-15) Blood Urea Nitrogen 5 mg/dL (7-18) L Creatinine 0.8 MG/DL (0.55-1.30) Estimat Glomerular Filtration Rate mL/min (>60) Glucose Level 101 MG/DL (74-106) Calcium Level 8.2 MG/DL (8.5-10.1) L Objective HEAD AND NECK: No JVD LUNGS: Coarse rhonchi. CARDIOVASCULAR:Regular S1 and S2 with no gallop or murmur. ABDOMEN: Soft.PEG in place EXTREMITIES: No pitting edema. Christian Vargas MD Apr 07, 2019 13:07
--- NOTE | 2019-04-07 13:36 | Surgery Progress Note ---
Surgery Progress Note Subjective Symptoms: improved, tolerating diet, voiding well, passing flatus Additional Comments more awake and alert comfortable labs noted Objective Last 24 Hour Vital Signs Date Time Temp Pulse Resp B/P (MAP) Pulse Ox O2 Delivery O2 Flow Rate FiO2 04/07/19 08:26 71 04/07/19 08:24 Nasal Cannula 2.0 Nasal Cannula 2.0 04/07/19 08:00 96.6 72 18 140/86 (104) 100 04/07/19 04:00 89 04/07/19 04:00 97.3 75 19 136/63 (87) 96 04/07/19 03:41 93 Nasal Cannula 3.0 32 04/07/19 00:00 77 04/07/19 00:00 97.7 78 19 141/82 (101) 100 04/06/19 21:00 Nasal Cannula 2.0 Nasal Cannula 2.0 04/06/19 20:00 96.6 81 20 136/88 (104) 100 04/06/19 20:00 73 04/06/19 17:03 99 Nasal Cannula 2.0 28 04/06/19 16:00 Nasal Cannula 2.0 Nasal Cannula 2.0 04/06/19 16:00 97.6 76 24 151/67 (95) 100 04/06/19 15:34 58 04/06/19 14:44 97.3 78 18 103/45 99 Nasal Cannula 3 04/06/19 14:35 69 17 94/42 100 Nasal Cannula 3 04/06/19 14:30 78 15 96/49 100 Nasal Cannula 3 04/06/19 14:30 87 16 98 04/06/19 14:25 97.4 87 16 88/50 98 Nasal Cannula 3 I&O Intake and Output 04/06/19 04/07/19 19:00 07:00 Intake Total 1115 ml 1155 ml Output Total 800 ml 1000 ml Balance 315 ml 155 ml Intake Free Water 50 ml 150 ml IV Total 1045 ml 825 ml Tube Feeding 20 ml 180 ml Output Urine Total 800 ml 1000 ml Estimated Blood Loss 0 ml Dressing: saturated Wound: other Drains: other Cardiovascular: RSR Respiratory: clear Abdomen: soft, non-tender, present bowel sounds Extremities: no tenderness, no cyanosis, other Laboratory Tests Test 04/06/19 22:29 04/07/19 05:46 Vancomycin Level Trough 21.2 ug/mL (5.0-12.0) H White Blood Count 10.8 K/UL (4.8-10.8) Red Blood Count 2.80 M/UL (4.70-6.10) L Hemoglobin 7.8 G/DL (14.2-18.0) L Hematocrit 25.6 % (42.0-52.0) L Mean Corpuscular Volume 92 FL (80-99) Mean Corpuscular Hemoglobin 28.0 PG (27.0-31.0) Mean Corpuscular Hemoglobin Concent 30.6 G/DL (32.0-36.0) L Red Cell Distribution Width 15.6 % (11.6-14.8) H Platelet Count 400 K/UL (150-450) Mean Platelet Volume 5.1 FL (6.5-10.1) L Neutrophils (%) (Auto) % (45.0-75.0) Lymphocytes (%) (Auto) % (20.0-45.0) Monocytes (%) (Auto) % (1.0-10.0) Eosinophils (%) (Auto) % (0.0-3.0) Basophils (%) (Auto) % (0.0-2.0) Differential Total Cells Counted 100 Neutrophils % (Manual) 88 % (45-75) H Lymphocytes % (Manual) 11 % (20-45) L Monocytes % (Manual) 1 % (1-10) Eosinophils % (Manual) 0 % (0-3) Basophils % (Manual) 0 % (0-2) Band Neutrophils 0 % (0-8) Platelet Estimate Adequate Platelet Morphology Normal Hypochromasia 1+ Anisocytosis 1+ Sodium Level 142 MMOL/L (136-145) Potassium Level 3.4 MMOL/L (3.5-5.1) L Chloride Level 108 MMOL/L (98-107) H Carbon Dioxide Level 29 MMOL/L (21-32) Anion Gap 5 mmol/L (5-15) Blood Urea Nitrogen 5 mg/dL (7-18) L Creatinine 0.8 MG/DL (0.55-1.30) Estimat Glomerular Filtration Rate mL/min (>60) Glucose Level 101 MG/DL (74-106) Calcium Level 8.2 MG/DL (8.5-10.1) L Plan Problems: (1) Respiratory distress (2) Decubitus skin ulcer Assessment & Plan: Pt presented on admission with multiple pressure injuries and ulcerations 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 Base of wound has mixed slough and necrosis. Edges adherent and dark . Periwound indurated with darker skin tone. Pt complained of pain when minimally palpated. Mild odor noted Full thickness ulcer R tibia. Base of wound has slough. Edges adherent and flat ,Periwound without erythema or fluctuance. Stable dry eschar noted to R hallux. edges are dark but adherent to base of wound. Periwound dark without erythema or fluctuance Stable dry eschar noted to R st metatarsal head. Periwound pale without fluctuance Stable dry eschar noted to dorsal aspects of R 3rd and 4th metatarsals. Full thickness ulcer lateral R 5th metatarsal. base of wound with some areas of necrosis and edges are black . No odor or exudate noted Stable dry eschar R heel . Periwound fluctuant without erythema. Pt complained of pain when minimally palpated. Stable dry eschar noted to dorso/flexor L foot. Periwound without erythema , induration or fluctuance Reabsorbing blood blister noted to medial L foot. Periwound without erythema or fluctuance L heel is dry and blanchable with historical scarring from previous wounds .Dry flaky skin noted to both feet. Tx.Plan: Cleanse sacral wound with Dakin's 0.125% stefani. Loose pack wound with Dakin's moist Kerlix. Apply Moisture Barrier paste to borders and cover with Optifoam drsg. Twice daily and prn. Cleanse Wound R tibia with Saline. Apply Therahoney. Cover with Optifoam drsg. Change every 3 days and prn.Apply Cavilon Skin BArrier to both heels. Cover each heel with Optifoam drsg. change every 7 days and prn APM/PHIL mattress overlay. Reposition at least every 2hours or as tolerated. Off-load heels with pillow. (3) Severe sepsis Assessment & Plan: leukocytosis resolved anemia lactic acidosis resolved improving septic MRSA bacteremia labs noted imaging noted Cont IV abx as per ID feeds wounds evaluated and care plan as above labs noted f/u cxr will follow with recs thank you DAILY ESTIMATED NEEDS: Needs based on Wound, critical care 78.6kg 25-30 kcals/kg 2036-3305 total kcals 1.25-2 g protein/kg 98-157 g total protein Fluid per MD, on lasix NUTRITION DIAGNOSIS: 1) Increased kcal/ pro needs r/t wound healing as evidenced by full thickness sacral wound, pending updated eval. 2) Swallowing difficulty r/t respiratory status as evidenced by s/p RR, pt now orally intubated, on pressor support. CURRENT DIET: Regular-> pt now intubated ENTERAL NUTRITION RECOMMENDATIONS: Osmolite 1.5 @55ml/hr x24 hrs + Prosource BID to provide 1320ml, 1980 kcal, 83g + 22g pro, 1006ml free H2O - WHEN HEMODYNAMICALLY STABLE, rec to obtain GI access, initiate non oral feeds to meed est nutritional needs - Start Osmolite 1.5 @25ml/hr for 6 hrs, advance as tolerated 10ml/hr q4-6 hrs to goal. - Flush per MD/ HOB over 30 degrees ADDITIONAL RECOMMENDATIONS: 1) Obtain a CALIBRATED bed wt 2) Feed w/ hemodynamic stability -> currently on pressors x2 3) WOUND CARE: Add BRUCE BID w/ GI access Add VIT C 250mg BID Add ZnSO4 220mg daily x10 days 4) On lasix, monitor lytes daily 5) ROSIN BARREL FILLER eval upon extubation (4) Dyspnea (5) Hypoxia Tawanda Alfaro Apr 07, 2019 13:36
--- NOTE | 2019-04-07 15:14 | Diagnostic Imaging Report ---
Indication: Dysphagia Procedure and findings: A single finisher screwdown fluoroscopic image of the neck performed in the lateral projection followed by real-time fluoroscopic video/cine imaging performed in a lateral projection in conjunction with the speech pathologist evaluation. Variable consistencies of barium given per mouth. Findings: Significant abnormalities of both oral and pharyngeal phases of swallowing are demonstrated. Total fluoroscopic time: 285 seconds. Total number of fluoroscopic images obtained: 10 No definite penetration or aspiration was identified Abnormal video swallow. Please refer to speech pathology evaluation for more information.
--- NOTE | 2019-04-07 15:26 | Hematology/Onc Progress Note ---
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 Favor scarring, but the possibility of neoplasm cannot be ruled out. 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, r/o mets --> patient is on pressors so hold off on diagnosis until more stable --> at some point will need a tissue diagnosis, as well as further w/u --> given advanced age, hold off on any extensive immediate care --> on xarelto at this time--> Once peg placed, NOW restarted xarelto # DVT + Pulmonary embolism history could be related to mass/malignancy * HYPERCOAGULABLE DISORDER* --> on xarelto, okay to dc to snf on this --> Once peg placed, NOW restarted xarelto # Thrombocytopenia likely due to infection --> currently improved --> trend 203-->124-->121-->100k-->121k-->179k-->274-->345-->401-->400 --> smear reviewed and no schistocytes noted --> ok for ppi # Leukocytosis is 2/2 septic shock with uti --> has been started on abx (vanc/zosyn) --> further w/u for altered mental status --> wbc 14-->19.7-->21-->9.6-->9.3-->7.2-->10.8 # Iron Overload --> Ferrtin 1327 continue to monitor consider chelation therapy prior to blood tx. --> on iv iron # Renal insufficiency --> as per renal recs # Respiratory failure --> sbp per pulm --> extubated 04/03 --> currently on nc # Hypotension on fluids now better --> abx and pressors # DVT ppx --> xarelto okay to continue if plt>75k (currently on hold for peg on ) The timing of this note does not necessarily reflect the time of the patient was seen. GREATLY APPRECIATE CONSULTATION. Subjective Allergies: Coded Allergies: No Known Allergies (Unverified , 01/18/19) Subjective 03/28: labs have been reviewed, hgb is less than 7, hgb 6.5, and prbc that has been ordered 03/29: in icu, on abx, no signs of distress, blood tx completed, labs reviewed 03/30: hgb is better, remains in the icu, on pressors levo, otherwise gtf started 03/31: icu, hgb 6.8, blood tx ordered, on rivaroxaban, vent, ng 04/02: on ng/vent, remains in the icu, recovering well s/p transfu, rivaroxaban continued 04/03: on xarelto, is off of midronine given low hr 04/04: s/p extubation, on nc, antrum biop negative for malignant cells, peg planning 04/05: for peg, off xarelto, family agreed, no bleeding 04/06: on abx, vs stable, no fever or chills, no distress 04/07: vs stable, no f/c, peg feeding, denies pain.] Objective Objective Current Medications Medications (Trade) Dose Ordered Sig/Vaughn Route PRN Reason Start Time Stop Time Status Last Admin Dose Admin Acetaminophen (Tylenol) 650 mg Q4H PRN NG Mild Pain/Temp > 100.5 04/06/19 18:45 04/29/19 18:41 04/07/19 00:44 Ascorbic Acid (Vitamin C) 250 mg EVERY 12 HOURS NG 04/06/19 21:00 04/26/19 17:59 04/07/19 09:29 Chlorhexidine Gluconate (Michelle-Hex 2%) 1 applic DAILY@1999 TOPIC 04/06/19 20:00 05/03/19 19:59 04/06/19 20:42 Furosemide (Lasix) 20 mg EVERY 12 HOURS NG 04/06/19 21:00 05/04/19 08:59 04/07/19 09:29 Levothyroxine Sodium (Synthroid) 100 mcg DAILY@0630 NG 04/07/19 06:30 04/30/19 06:29 04/07/19 06:40 Pantoprazole (Protonix) 40 mg DAILY IVP 04/07/19 09:00 04/26/19 08:59 04/07/19 09:30 Potassium Chloride (K-Dur) 20 meq DAILY ORAL 04/07/19 12:45 05/07/19 12:44 04/07/19 13:44 Sodium Hypochlorite (Dakin's Quarter Strength) 1 applic EVERY 12 HOURS TOPIC 04/06/19 21:00 04/27/19 00:00 04/07/19 09:26 Vancomycin HCl (Vanco rx to dose) 1 ea DAILY PRN MISC Per rx protocol 04/07/19 09:00 05/08/19 08:59 Vancomycin HCl 750 mg/Dextrose 275 ml @ 183.333 mls/hr Q24H IVPB 04/07/19 08:00 05/07/19 23:59 04/07/19 08:50 Zinc Sulfate (Zinc Sulfate) 220 mg DAILY NG 04/07/19 09:00 04/27/19 08:59 04/07/19 09:29 Last 24 Hour Vital Signs Date Time Temp Pulse Resp B/P (MAP) Pulse Ox O2 Delivery O2 Flow Rate FiO2 04/07/19 12:00 98.7 79 20 139/65 (89) 100 04/07/19 08:26 71 04/07/19 08:24 Nasal Cannula 2.0 Nasal Cannula 2.0 04/07/19 08:00 96.6 72 18 140/86 (104) 100 04/07/19 04:00 89 04/07/19 04:00 97.3 75 19 136/63 (87) 96 04/07/19 03:41 93 Nasal Cannula 3.0 32 04/07/19 00:00 77 04/07/19 00:00 97.7 78 19 141/82 (101) 100 04/06/19 21:00 Nasal Cannula 2.0 Nasal Cannula 2.0 04/06/19 20:00 96.6 81 20 136/88 (104) 100 04/06/19 20:00 73 04/06/19 17:03 99 Nasal Cannula 2.0 28 04/06/19 16:00 Nasal Cannula 2.0 Nasal Cannula 2.0 04/06/19 16:00 97.6 76 24 151/67 (95) 100 04/06/19 15:34 58 04/06/19 14:44 97.3 78 18 103/45 99 Nasal Cannula 3 04/06/19 14:35 69 17 94/42 100 Nasal Cannula 3 04/06/19 14:30 78 15 96/49 100 Nasal Cannula 3 04/06/19 14:30 87 16 98 04/06/19 14:25 97.4 87 16 88/50 98 Nasal Cannula 3 04/06/19 12:00 Nasal Cannula 2.0 Nasal Cannula 2.0 04/06/19 12:00 98.1 87 20 118/59 (78) 99 04/06/19 11:43 65 04/06/19 08:00 Nasal Cannula 2.0 Nasal Cannula 2.0 04/06/19 08:00 98.8 106 20 126/78 (94) 99 04/06/19 07:50 122 04/06/19 04:00 Nasal Cannula 2.0 Nasal Cannula 2.0 04/06/19 04:00 106 04/06/19 04:00 97.5 104 18 97/69 (78) 96 04/06/19 00:00 100 04/06/19 00:00 98.1 104 20 116/55 (75) 95 04/06/19 00:00 Nasal Cannula 2.0 Nasal Cannula 2.0 04/05/19 20:00 Nasal Cannula 2.0 Nasal Cannula 2.0 04/05/19 20:00 96.6 74 18 143/64 (90) 100 04/05/19 20:00 98 Nasal Cannula 2.0 28 04/05/19 20:00 51 04/05/19 16:00 2.0 04/05/19 16:00 Nasal Cannula 2.0 Nasal Cannula 2.0 04/05/19 16:00 95.4 59 20 149/86 (107) 98 04/05/19 16:00 47 Intake and Output 04/06/19 04/07/19 19:00 07:00 Intake Total 1115 ml 1155 ml Output Total 800 ml 1000 ml Balance 315 ml 155 ml Free Water 50 ml 150 ml IV Total 1045 ml 825 ml Tube Feeding 20 ml 180 ml Output Urine Total 800 ml 1000 ml Estimated Blood Loss 0 ml Labs Test 04/05/19 03:01 04/06/19 08:40 04/06/19 22:29 04/07/19 05:46 White Blood Count 6.7 K/UL (4.8-10.8) 7.2 K/UL (4.8-10.8) 10.8 K/UL (4.8-10.8) Red Blood Count 2.81 M/UL (4.70-6.10) 2.82 M/UL (4.70-6.10) 2.80 M/UL (4.70-6.10) Hemoglobin 7.9 G/DL (14.2-18.0) 8.0 G/DL (14.2-18.0) 7.8 G/DL (14.2-18.0) Hematocrit 25.6 % (42.0-52.0) 25.2 % (42.0-52.0) 25.6 % (42.0-52.0) Mean Corpuscular Volume 91 FL (80-99) 90 FL (80-99) 92 FL (80-99) Mean Corpuscular Hemoglobin 28.3 PG (27.0-31.0) 28.4 PG (27.0-31.0) 28.0 PG (27.0-31.0) Mean Corpuscular Hemoglobin Concent 31.0 G/DL (32.0-36.0) 31.7 G/DL (32.0-36.0) 30.6 G/DL (32.0-36.0) Red Cell Distribution Width 16.0 % (11.6-14.8) 16.8 % (11.6-14.8) 15.6 % (11.6-14.8) Platelet Count 345 K/UL (150-450) 401 K/UL (150-450) 400 K/UL (150-450) Mean Platelet Volume 5.2 FL (6.5-10.1) 5.1 FL (6.5-10.1) 5.1 FL (6.5-10.1) Neutrophils (%) (Auto) % (45.0-75.0) 58.7 % (45.0-75.0) % (45.0-75.0) Lymphocytes (%) (Auto) % (20.0-45.0) 31.0 % (20.0-45.0) % (20.0-45.0) Monocytes (%) (Auto) % (1.0-10.0) 7.7 % (1.0-10.0) % (1.0-10.0) Eosinophils (%) (Auto) % (0.0-3.0) 0.7 % (0.0-3.0) % (0.0-3.0) Basophils (%) (Auto) % (0.0-2.0) 1.9 % (0.0-2.0) % (0.0-2.0) Sodium Level 141 MMOL/L (136-145) 141 MMOL/L (136-145) 142 MMOL/L (136-145) Potassium Level 3.7 MMOL/L (3.5-5.1) 3.2 MMOL/L (3.5-5.1) 3.4 MMOL/L (3.5-5.1) Chloride Level 108 MMOL/L (98-107) 109 MMOL/L (98-107) 108 MMOL/L (98-107) Carbon Dioxide Level 25 MMOL/L (21-32) 27 MMOL/L (21-32) 29 MMOL/L (21-32) Anion Gap 8 mmol/L (5-15) 5 mmol/L (5-15) 5 mmol/L (5-15) Blood Urea Nitrogen 9 mg/dL (7-18) 5 mg/dL (7-18) 5 mg/dL (7-18) Creatinine 0.8 MG/DL (0.55-1.30) 0.8 MG/DL (0.55-1.30) 0.8 MG/DL (0.55-1.30) Estimat Glomerular Filtration Rate mL/min (>60) mL/min (>60) mL/min (>60) Glucose Level 86 MG/DL (74-106) 88 MG/DL (74-106) 101 MG/DL (74-106) Calcium Level 8.1 MG/DL (8.5-10.1) 8.3 MG/DL (8.5-10.1) 8.2 MG/DL (8.5-10.1) Phosphorus Level 2.7 MG/DL (2.5-4.9) Magnesium Level 1.8 MG/DL (1.8-2.4) Prothrombin Time 11.7 SEC (9.30-11.50) Prothromb Time International Ratio 1.1 (0.9-1.1) Activated Partial Thromboplast Time 33 SEC (23-33) Vancomycin Level Trough 21.2 ug/mL (5.0-12.0) Differential Total Cells Counted 100 Neutrophils % (Manual) 88 % (45-75) Lymphocytes % (Manual) 11 % (20-45) Monocytes % (Manual) 1 % (1-10) Eosinophils % (Manual) 0 % (0-3) Basophils % (Manual) 0 % (0-2) Band Neutrophils 0 % (0-8) Platelet Estimate Adequate Platelet Morphology Normal Hypochromasia 1+ Anisocytosis 1+ Height (Feet): 6 Height (Inches): 6.00 Weight (Pounds): 198 Objective PE General: severe distress, chronically Ill ENT: moist mucus membranes, ng++ Neck: limited range of motion Respiratory: respiratory distress, rhonch, extubated, nc++ Cardiovascular: RRr, no mgr Gastrointestinal: normal inspection, soft ++ peg Msk: normal inspection Neuro: responsive, motor weakness Skin: no rash Jake Womack MD Apr 07, 2019 15:26
[2019-04-07 16:00] VITALS: BP 122/73
[2019-04-07] MEDS ORDERED: Tubing IV Secondary IV ONE (18:34)
[2019-04-07] MEDS ORDERED: D5 1/2NS 1000ml IV ONE (18:34)
[2019-04-07] MEDS ORDERED: NS 275ml ONE (18:34)
--- NOTE | 2019-04-07 19:30 | NUR ---
NURSE NOTES: Received patient from [place] BERGER. Patient is alert but confused, oriented to self. Patient in bed, on 2L NC, no s/s of respiratory distress. No residual from g tube. Increased osmolite 1.5 to 50ml/hr. Abdominal binder on. PICC on BECK, dressing intact, clean and dry. Bilateral lower extremities elevated for 3+ edema. Jose catheter intact, patent. Bed in low position, locked, alarm on, call light within reach.
--- NOTE | 2019-04-07 19:37 | NUR ---
HAND-OFF: Report given to Yohan Taylor Rn.
[2019-04-07 20:00] VITALS: BP 132/65
[2019-04-07] MEDS: Dyna-Hex 2% Top Sol 2oz TOPIC SCH (20:21)
--- NOTE | 2019-04-07 21:00 | NUR ---
NURSE NOTES: Sacral dressing changed as ordered, packed kerlex soaked with dakins, barrier cream on periwound, covered with optifoam. Small stage 2 on mid upper back, covered with optifoam.
[2019-04-08] VITALS: BP 138/90
[2019-04-08 04:00] VITALS: BP 143/92
[2019-04-08 05:20] LABS: BASOPHILS % (AUTO) 0.4 % (0.0-2.0); EOSINOPHILS % (AUTO) 0.6 % (0.0-3.0); HEMATOCRIT 25.6 % (42.0-52.0); LYMPHOCYTES % (AUTO) 25.6 % (20.0-45.0); MEAN CORPUSCULAR VOLUME 91 FL (80-99); MONOCYTES % (AUTO) 4.8 % (1.0-10.0); NEUTROPHILS % (AUTO) 68.6 % (45.0-75.0); PLATELET COUNT 446 K/UL (150-450); RED BLOOD COUNT 2.82 M/UL (4.70-6.10); RED CELL DISTRIBUTION WIDTH 15.8 % (11.6-14.8); WHITE BLOOD COUNT 9.6 K/UL (4.8-10.8)
[2019-04-08 05:41] LABS: ANION GAP 3 mmol/L (5-15); BLOOD UREA NITROGEN 6 mg/dL (7-18); CALCIUM 8.1 MG/DL (8.5-10.1); CARBON DIOXIDE 30 MMOL/L (21-32); CHLORIDE 105 MMOL/L (98-107); CREATININE 0.9 MG/DL (0.55-1.30); PHOSPHORUS 2.1 MG/DL (2.5-4.9); POTASSIUM 3.4 MMOL/L (3.5-5.1); SODIUM 138 MMOL/L (136-145)
--- NOTE | 2019-04-08 06:25 | NUR ---
NURSE NOTES: Notified Dr. Vargas regarding patient's non sustained tachycardia throughout the night. EKG was done, left message with results. Current BP 119/86. EKG shows afib with pvc, incomplete right BBB.
--- NOTE | 2019-04-08 07:35 | NUR ---
HAND-OFF: Report given to Josselin BERGER. Plan of care endorsed.
--- NOTE | 2019-04-08 07:41 | NUR ---
NURSE NOTES: Received report from CELINE Almanzar. Patient in bed resting, no active s/s cardiac, respiratory distress noticed at this time. Patient on 2L oxygen via NC. AOx1. G-tube feeding running as prescribed rate, tolerating well, no residual at this time. Endorsed MD made aware of A. fib. PICC line on left upper arm, Bed in lowest position, side rails upx2, call light within reach. Will continue to monitor.
--- NOTE | 2019-04-08 07:54 | General Progress Note ---
Assessment/Plan Problem List: (1) GI bleed ICD Codes: K92.2 - Gastrointestinal hemorrhage, unspecified SNOMED: 58720069 (2) Anemia ICD Codes: D64.9 - Anemia, unspecified SNOMED: 422436802 (3) Lung mass ICD Codes: R91.8 - Other nonspecific abnormal finding of lung field SNOMED: 741816936 (4) Decubitus skin ulcer ICD Codes: L89.90 - Pressure ulcer of unspecified site, unspecified stage SNOMED: 658754346 (5) Hypothyroidism ICD Codes: E03.9 - Hypothyroidism, unspecified SNOMED: 09066812 Status: stable Assessment/Plan: (1) GI bleed ICD Codes: K92.2 - Gastrointestinal hemorrhage, unspecified SNOMED: 60346444 (2) Anemia ICD Codes: D64.9 - Anemia, unspecified SNOMED: 405017402 (3) Respiratory distress ICD Codes: R06.03 - Acute respiratory distress SNOMED: 500810680 (4) Electrolyte abnormality ICD Codes: E87.8 - Other disorders of electrolyte and fluid balance, not elsewhere classified SNOMED: 378891627 Status: unchanged SUMMARY OF FINDINGS: Gastritis, otherwise normal upper endoscopic examination. ST evaluation reviewed s/p PEG RECOMMENDATIONS: resume Xarelto per primary GTF per RD okay for oral gratification per ST electrolyte correction prn transfusions ppi pulm care cbc in a Subjective ROS Limited/Unobtainable: No Allergies: Coded Allergies: No Known Allergies (Unverified , 01/18/19) Objective Last 24 Hour Vital Signs Date Time Temp Pulse Resp B/P (MAP) Pulse Ox O2 Delivery O2 Flow Rate FiO2 04/08/19 04:00 107 04/08/19 04:00 97.4 116 19 143/92 (109) 98 04/08/19 00:00 97.4 102 18 138/90 (106) 99 04/08/19 00:00 81 04/07/19 21:00 Nasal Cannula 2.0 Nasal Cannula 2.0 04/07/19 20:00 97.2 87 18 132/65 (87) 100 04/07/19 20:00 68 04/07/19 16:00 98.6 79 20 122/73 (89) 99 04/07/19 15:37 103 04/07/19 12:01 64 04/07/19 12:00 98.7 79 20 139/65 (89) 100 04/07/19 08:26 71 04/07/19 08:24 Nasal Cannula 2.0 Nasal Cannula 2.0 04/07/19 08:00 96.6 72 18 140/86 (104) 100 Intake and Output 04/07/19 04/08/19 19:00 07:00 Intake Total 820 ml 920 ml Output Total 1800 ml 1500 ml Balance -980 ml -580 ml Intake Oral 140 ml Free Water 300 ml 300 ml Tube Feeding 380 ml 620 ml Output Urine Total 1800 ml 1500 ml # Bowel Movements 1 Laboratory Tests 04/08/19 04:30: White Blood Count 9.6, Red Blood Count 2.82L, Hemoglobin 8.0L, Hematocrit 25.6L , Mean Corpuscular Volume 91, Mean Corpuscular Hemoglobin 28.4, Mean Corpuscular Hemoglobin Concent 31.3L, Red Cell Distribution Width 15.8H, Platelet Count 446, Mean Platelet Volume 5.0L, Neutrophils (%) (Auto) 68.6, Lymphocytes (%) (Auto) 25.6, Monocytes (%) (Auto) 4.8, Eosinophils (%) (Auto) 0.6, Basophils (%) (Auto) 0.4, Sodium Level 138, Potassium Level 3.4L, Chloride Level 105, Carbon Dioxide Level 30, Anion Gap 3L, Blood Urea Nitrogen 6L, Creatinine 0.9, Estimat Glomerular Filtration Rate , Glucose Level 133H, Calcium Level 8.1L, Phosphorus Level 2.1L, Magnesium Level 1.4L Height (Feet): 6 Height (Inches): 6.00 Weight (Pounds): 198 General Appearance: no apparent distress EENT: normal ENT inspection Neck: supple Cardiovascular: normal rate Respiratory/Chest: decreased breath sounds Abdomen: normal bowel sounds, non tender, soft Extremities: non-tender eSrgei Roche MD Apr 08, 2019 07:54
[2019-04-08 08:00] VITALS: BP 124/78
--- NOTE | 2019-04-08 08:15 | NUR ---
NURSE NOTES: Dr. Roche made aware of today K level 3.4, Mg 1.4. Per Dr. Roche, 2g Magnesium, IV, once. Order noted, entered, carried out.
--- NOTE | 2019-04-08 08:21 | NUR ---
NURSE NOTES: Received callback from Dr. Vargas, made aware of A. fib last night. No order given at this time.
[2019-04-08] MEDS: Zinc Sulfate 220mg cap NG SCH (08:31)
[2019-04-08] MEDS: Vancomycin 750mg/D5W 275ml IVPB SCH ×2 (08:31)
[2019-04-08] MEDS: Dakin's 0.125% Soln (Quarter Strength) 16oz TOPIC SCH ×2 (08:31→20:15)
[2019-04-08] MEDS: Pantoprazole Inj IVP SCH (08:32)
[2019-04-08] MEDS: Ascorbic Acid 500mg tab NG SCH ×2 (08:32→20:15)
--- NOTE | 2019-04-08 08:43 | NUR ---
NURSE NOTES: Per Dr. Womack, no need of Xarelto at this time since hgb low.
[2019-04-08] MEDS ORDERED: D5NS 1000ml IV ONE (09:15)
--- NOTE | 2019-04-08 11:49 | Hematology/Onc Progress Note ---
Assessment/Plan Assessment/Plan Assessment and Recs: # Anemia of chronic disease, multifactorial, and gi bleed --> hold off on iron or epo at this time --> anemia panel has been reviewed --> hgb trend 9.6-->8.3-->6.5-->8.1-->8.7-->6.8-->8.1-->7.6-->7.9-->8-->7.8-->8 --> no evidence of hemolysis --> occult blood +++ gi eval prn --> transfuse if hgb <7 --> s/p blood tx: 03/31 --> Since peg done,can restart xarelto, if okay with cards # Lung mass (2.5 x 2.3 x 1.8 cm right apical masslike opacity) with smaller adjacent similar smaller opacities. Favor scarring, but the possibility of neoplasm cannot be ruled out. 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, r/o mets --> patient is on pressors so hold off on diagnosis until more stable --> at some point will need a tissue diagnosis, as well as further w/u --> given advanced age, hold off on any extensive immediate care --> on xarelto at this time--> Once peg placed,can restart xarelto # DVT + Pulmonary embolism history could be related to mass/malignancy * HYPERCOAGULABLE DISORDER* --> Once peg placed, NOW restarted xarelto # Thrombocytopenia likely due to infection --> currently improved --> trend 203-->124-->121-->100k-->121k-->179k-->274-->345-->401-->400 --> smear reviewed and no schistocytes noted --> ok for ppi # Leukocytosis is 2/2 septic shock with uti --> has been started on abx (vanc/zosyn) --> further w/u for altered mental status --> wbc 14-->19.7-->21-->9.6-->9.3-->7.2-->10.8 # Iron Overload --> Ferrtin 1327 continue to monitor consider chelation therapy prior to blood tx. --> on iv iron # Renal insufficiency --> as per renal recs # Respiratory failure --> sbp per pulm --> extubated 04/03 --> currently on nc # Hypotension on fluids now better --> abx and pressors # DVT ppx --> xarelto okay to continue if plt>75k, hgb >8 The timing of this note does not necessarily reflect the time of the patient was seen. GREATLY APPRECIATE CONSULTATION. Subjective Constitutional: Denies: no symptoms, chills, fever, malaise, weakness, other HEENT: Denies: no symptoms, eye pain, blurred vision, tearing, double vision, ear pain, ear discharge, nose pain, nose congestion, throat pain, throat swelling, mouth pain, mouth swelling, other Cardiovascular: Denies: no symptoms, chest pain, edema, irregular heart rate, lightheadedness, palpitations, syncope, other Respiratory: Denies: no symptoms, cough, shortness of breath, SOB with excertion, SOB at rest, sputum, wheezing, other Gastrointestinal/Abdominal: Denies: no symptoms, abdomen distended, abdominal pain, black stools, tarry stools, blood in stool, constipated, diarrhea, difficulty swallowing, nausea, poor appetite, poor fluid intake, rectal bleeding , vomiting, other Genitourinary: Denies: no symptoms, burning, discharge, frequency, flank pain, hematuria, incontinence, pain, urgency, other Neurologic/Psychiatric: Denies: no symptoms, anxiety, depressed, emotional problems, headache, numbness, paresthesia, pre-existing deficit, seizure, tingling, tremors, weakness, other Endocrine: Denies: no symptoms, excessive sweating, flushing, intolerance to cold, intolerance to heat, increased hunger, increased thirst, increased urine, unexplained weight gain, unexplained weight loss, other Allergies: Coded Allergies: No Known Allergies (Unverified , 01/18/19) Subjective 03/28: labs have been reviewed, hgb is less than 7, hgb 6.5, and prbc that has been ordered 03/29: in icu, on abx, no signs of distress, blood tx completed, labs reviewed 03/30: hgb is better, remains in the icu, on pressors levo, otherwise gtf started 03/31: icu, hgb 6.8, blood tx ordered, on rivaroxaban, vent, ng 04/02: on ng/vent, remains in the icu, recovering well s/p transfu, rivaroxaban continued 04/03: on xarelto, is off of midronine given low hr 04/04: s/p extubation, on nc, antrum biop negative for malignant cells, peg planning 04/05: for peg, off xarelto, family agreed, no bleeding 04/06: on abx, vs stable, no fever or chills, no distress 04/07: vs stable, no f/c, peg feeding, denies pain. 04/08: generally would not object to the use of noac, will dw cards Objective Objective Current Medications Medications (Trade) Dose Ordered Sig/Vaughn Route PRN Reason Start Time Stop Time Status Last Admin Dose Admin Acetaminophen (Tylenol) 650 mg Q4H PRN NG Mild Pain/Temp > 100.5 04/06/19 18:45 04/29/19 18:41 04/07/19 00:44 Ascorbic Acid (Vitamin C) 250 mg EVERY 12 HOURS NG 04/06/19 21:00 04/26/19 17:59 04/08/19 08:32 Chlorhexidine Gluconate (Michelle-Hex 2%) 1 applic DAILY@1999 TOPIC 04/06/19 20:00 05/03/19 19:59 04/07/19 20:21 Furosemide (Lasix) 20 mg EVERY 12 HOURS NG 04/06/19 21:00 05/04/19 08:59 04/08/19 08:31 Levothyroxine Sodium (Synthroid) 100 mcg DAILY@0630 NG 04/07/19 06:30 04/30/19 06:29 04/08/19 05:43 Pantoprazole (Protonix) 40 mg DAILY IVP 04/07/19 09:00 04/26/19 08:59 04/08/19 08:32 Potassium Chloride (K-Dur) 20 meq DAILY ORAL 04/07/19 12:45 05/07/19 12:44 04/08/19 08:32 Sodium Hypochlorite (Dakin's Quarter Strength) 1 applic EVERY 12 HOURS TOPIC 04/06/19 21:00 04/27/19 00:00 04/08/19 08:31 Vancomycin HCl (Vanco rx to dose) 1 ea DAILY PRN MISC Per rx protocol 04/07/19 09:00 05/08/19 08:59 Vancomycin HCl 750 mg/Dextrose 275 ml @ 183.333 mls/hr Q24H IVPB 04/07/19 08:00 05/07/19 23:59 04/08/19 08:31 Zinc Sulfate (Zinc Sulfate) 220 mg DAILY NG 04/07/19 09:00 04/27/19 08:59 04/08/19 08:31 Last 24 Hour Vital Signs Date Time Temp Pulse Resp B/P (MAP) Pulse Ox O2 Delivery O2 Flow Rate FiO2 04/08/19 09:00 Nasal Cannula 2.0 Nasal Cannula 2.0 04/08/19 08:00 98.1 82 19 124/78 (93) 94 04/08/19 08:00 82 04/08/19 04:00 107 04/08/19 04:00 97.4 116 19 143/92 (109) 98 04/08/19 00:00 97.4 102 18 138/90 (106) 99 04/08/19 00:00 81 04/07/19 21:00 Nasal Cannula 2.0 Nasal Cannula 2.0 04/07/19 20:00 97.2 87 18 132/65 (87) 100 04/07/19 20:00 68 04/07/19 16:00 98.6 79 20 122/73 (89) 99 04/07/19 15:37 103 04/07/19 12:01 64 04/07/19 12:00 98.7 79 20 139/65 (89) 100 04/07/19 08:26 71 04/07/19 08:24 Nasal Cannula 2.0 Nasal Cannula 2.0 04/07/19 08:00 96.6 72 18 140/86 (104) 100 04/07/19 04:00 89 04/07/19 04:00 97.3 75 19 136/63 (87) 96 04/07/19 03:41 93 Nasal Cannula 3.0 32 04/07/19 00:00 77 04/07/19 00:00 97.7 78 19 141/82 (101) 100 04/06/19 21:00 Nasal Cannula 2.0 Nasal Cannula 2.0 04/06/19 20:00 96.6 81 20 136/88 (104) 100 04/06/19 20:00 73 04/06/19 17:03 99 Nasal Cannula 2.0 28 04/06/19 16:00 Nasal Cannula 2.0 Nasal Cannula 2.0 04/06/19 16:00 97.6 76 24 151/67 (95) 100 04/06/19 15:34 58 04/06/19 14:44 97.3 78 18 103/45 99 Nasal Cannula 3 04/06/19 14:35 69 17 94/42 100 Nasal Cannula 3 04/06/19 14:30 78 15 96/49 100 Nasal Cannula 3 04/06/19 14:30 87 16 98 04/06/19 14:25 97.4 87 16 88/50 98 Nasal Cannula 3 04/06/19 12:00 Nasal Cannula 2.0 Nasal Cannula 2.0 04/06/19 12:00 98.1 87 20 118/59 (78) 99 Intake and Output 04/07/19 04/08/19 18:59 06:59 Intake Total 840 ml 860 ml Output Total 1800 ml 1500 ml Balance -960 ml -640 ml Intake Oral 140 ml Free Water 300 ml 300 ml Tube Feeding 400 ml 560 ml Output Urine Total 1800 ml 1500 ml # Bowel Movements 1 Labs Test 04/06/19 08:40 04/06/19 22:29 04/07/19 05:46 04/08/19 04:30 White Blood Count 7.2 K/UL (4.8-10.8) 10.8 K/UL (4.8-10.8) 9.6 K/UL (4.8-10.8) Red Blood Count 2.82 M/UL (4.70-6.10) 2.80 M/UL (4.70-6.10) 2.82 M/UL (4.70-6.10) Hemoglobin 8.0 G/DL (14.2-18.0) 7.8 G/DL (14.2-18.0) 8.0 G/DL (14.2-18.0) Hematocrit 25.2 % (42.0-52.0) 25.6 % (42.0-52.0) 25.6 % (42.0-52.0) Mean Corpuscular Volume 90 FL (80-99) 92 FL (80-99) 91 FL (80-99) Mean Corpuscular Hemoglobin 28.4 PG (27.0-31.0) 28.0 PG (27.0-31.0) 28.4 PG (27.0-31.0) Mean Corpuscular Hemoglobin Concent 31.7 G/DL (32.0-36.0) 30.6 G/DL (32.0-36.0) 31.3 G/DL (32.0-36.0) Red Cell Distribution Width 16.8 % (11.6-14.8) 15.6 % (11.6-14.8) 15.8 % (11.6-14.8) Platelet Count 401 K/UL (150-450) 400 K/UL (150-450) 446 K/UL (150-450) Mean Platelet Volume 5.1 FL (6.5-10.1) 5.1 FL (6.5-10.1) 5.0 FL (6.5-10.1) Neutrophils (%) (Auto) 58.7 % (45.0-75.0) % (45.0-75.0) 68.6 % (45.0-75.0) Lymphocytes (%) (Auto) 31.0 % (20.0-45.0) % (20.0-45.0) 25.6 % (20.0-45.0) Monocytes (%) (Auto) 7.7 % (1.0-10.0) % (1.0-10.0) 4.8 % (1.0-10.0) Eosinophils (%) (Auto) 0.7 % (0.0-3.0) % (0.0-3.0) 0.6 % (0.0-3.0) Basophils (%) (Auto) 1.9 % (0.0-2.0) % (0.0-2.0) 0.4 % (0.0-2.0) Prothrombin Time 11.7 SEC (9.30-11.50) Prothromb Time International Ratio 1.1 (0.9-1.1) Activated Partial Thromboplast Time 33 SEC (23-33) Sodium Level 141 MMOL/L (136-145) 142 MMOL/L (136-145) 138 MMOL/L (136-145) Potassium Level 3.2 MMOL/L (3.5-5.1) 3.4 MMOL/L (3.5-5.1) 3.4 MMOL/L (3.5-5.1) Chloride Level 109 MMOL/L (98-107) 108 MMOL/L (98-107) 105 MMOL/L (98-107) Carbon Dioxide Level 27 MMOL/L (21-32) 29 MMOL/L (21-32) 30 MMOL/L (21-32) Anion Gap 5 mmol/L (5-15) 5 mmol/L (5-15) 3 mmol/L (5-15) Blood Urea Nitrogen 5 mg/dL (7-18) 5 mg/dL (7-18) 6 mg/dL (7-18) Creatinine 0.8 MG/DL (0.55-1.30) 0.8 MG/DL (0.55-1.30) 0.9 MG/DL (0.55-1.30) Estimat Glomerular Filtration Rate mL/min (>60) mL/min (>60) mL/min (>60) Glucose Level 88 MG/DL (74-106) 101 MG/DL (74-106) 133 MG/DL (74-106) Calcium Level 8.3 MG/DL (8.5-10.1) 8.2 MG/DL (8.5-10.1) 8.1 MG/DL (8.5-10.1) Vancomycin Level Trough 21.2 ug/mL (5.0-12.0) Differential Total Cells Counted 100 Neutrophils % (Manual) 88 % (45-75) Lymphocytes % (Manual) 11 % (20-45) Monocytes % (Manual) 1 % (1-10) Eosinophils % (Manual) 0 % (0-3) Basophils % (Manual) 0 % (0-2) Band Neutrophils 0 % (0-8) Platelet Estimate Adequate Platelet Morphology Normal Hypochromasia 1+ Anisocytosis 1+ Phosphorus Level 2.1 MG/DL (2.5-4.9) Magnesium Level 1.4 MG/DL (1.8-2.4) Height (Feet): 6 Height (Inches): 6.00 Weight (Pounds): 198 Objective PE General: severe distress, chronically Ill ENT: moist mucus membranes, ng++ Neck: limited range of motion Respiratory: respiratory distress, rhonch, extubated, nc++ Cardiovascular: RRr, no mgr Gastrointestinal: normal inspection, soft ++ peg Msk: normal inspection Neuro: responsive, motor weakness Skin: no rash Jake Womack MD Apr 08, 2019 11:49
--- NOTE | 2019-04-08 11:56 | NUR ---
NURSE NOTES: Paged Dr. Lemon regarding discharge. Per Dr. Mims, discharge patient and ask ID for continuity of antibiotic.
--- NOTE | 2019-04-08 11:57 | NUR ---
NURSE NOTES: Per Dr. Lemon, patient need IV vancomycin, continue IV vanco for 30 days, until 05/07/19. Order noted, entered, carried out.
[2019-04-08 12:00] VITALS: BP 137/78
[2019-04-08] MEDS ORDERED: VANCOMYCIN750 MG/150 IV (13:01)
--- NOTE | 2019-04-08 14:35 | NUR ---
NURSE NOTES: Per Dr. Mims, continue oxygen and Jose Catheter when discharge. Order noted, entered, carried out.
--- NOTE | 2019-04-08 14:35 | NUR ---
NURSE NOTES: Family member at the bedside, made aware of discharge order. Family member stated, it is too soon to be discharge. Dr. Mims made aware of family member's concern. Per Dr. Mims, let the family independence case manager talk to family and discharge on Wednesday. Order noted, entered, carried out.
--- NOTE | 2019-04-08 14:37 | Cardiac Electrophysiology PN ---
Assessment/Plan Assessment/Plan 1. S/P Septic shock. Blood Cx positive for GP cocci. On IV antibiotics. EF 60 to 65 percent with mild diastolic dysfunction. 2. Atrial fib with CVR off any AVN blockers. On Xarelto 3. S/P Respiratory failure, likely due to pneumonia. On broad-spectrum IV antibiotics. 4. Mild diastolic dysfunction with elevated BNP. 5. History of PE. On Xarelto [address] Oakley FU Dr Najera 6. UTI. 7. Dysphagia, S/P PEG DW RN, daughter and RN Subjective Subjective Had atrial fib with CVR last night. PEG feeding going on. No CP or SOB.Family at bedside Objective Last 24 Hour Vital Signs Date Time Temp Pulse Resp B/P (MAP) Pulse Ox O2 Delivery O2 Flow Rate FiO2 04/08/19 12:00 97.3 90 20 137/78 (97) 100 04/08/19 09:00 Nasal Cannula 2.0 Nasal Cannula 2.0 04/08/19 08:00 98.1 82 19 124/78 (93) 94 04/08/19 08:00 82 04/08/19 04:00 107 04/08/19 04:00 97.4 116 19 143/92 (109) 98 04/08/19 00:00 97.4 102 18 138/90 (106) 99 04/08/19 00:00 81 04/07/19 21:00 Nasal Cannula 2.0 Nasal Cannula 2.0 04/07/19 20:00 97.2 87 18 132/65 (87) 100 04/07/19 20:00 68 04/07/19 16:00 98.6 79 20 122/73 (89) 99 04/07/19 15:37 103 Intake and Output 04/07/19 04/08/19 18:59 06:59 Intake Total 840 ml 860 ml Output Total 1800 ml 1500 ml Balance -960 ml -640 ml Intake Oral 140 ml Free Water 300 ml 300 ml Tube Feeding 400 ml 560 ml Output Urine Total 1800 ml 1500 ml # Bowel Movements 1 Laboratory Tests Test 04/08/19 04:30 04/08/19 04:35 White Blood Count 9.6 K/UL (4.8-10.8) Red Blood Count 2.82 M/UL (4.70-6.10) L Hemoglobin 8.0 G/DL (14.2-18.0) L Hematocrit 25.6 % (42.0-52.0) L Mean Corpuscular Volume 91 FL (80-99) Mean Corpuscular Hemoglobin 28.4 PG (27.0-31.0) Mean Corpuscular Hemoglobin Concent 31.3 G/DL (32.0-36.0) L Red Cell Distribution Width 15.8 % (11.6-14.8) H Platelet Count 446 K/UL (150-450) Mean Platelet Volume 5.0 FL (6.5-10.1) L Neutrophils (%) (Auto) 68.6 % (45.0-75.0) Lymphocytes (%) (Auto) 25.6 % (20.0-45.0) Monocytes (%) (Auto) 4.8 % (1.0-10.0) Eosinophils (%) (Auto) 0.6 % (0.0-3.0) Basophils (%) (Auto) 0.4 % (0.0-2.0) Sodium Level 138 MMOL/L (136-145) Potassium Level 3.4 MMOL/L (3.5-5.1) L Chloride Level 105 MMOL/L (98-107) Carbon Dioxide Level 30 MMOL/L (21-32) Anion Gap 3 mmol/L (5-15) L Blood Urea Nitrogen 6 mg/dL (7-18) L Creatinine 0.9 MG/DL (0.55-1.30) Estimat Glomerular Filtration Rate mL/min (>60) Glucose Level 133 MG/DL (74-106) H Calcium Level 8.1 MG/DL (8.5-10.1) L Phosphorus Level 2.1 MG/DL (2.5-4.9) L Magnesium Level 1.4 MG/DL (1.8-2.4) L Ferritin 553 NG/ML (8-388) H Objective HEAD AND NECK: No JVD LUNGS: Coarse rhonchi. CARDIOVASCULAR:Regular S1 and S2 with no gallop or murmur. ABDOMEN: Soft.PEG in place EXTREMITIES: No pitting edema. Christian Vargas MD Apr 08, 2019 14:37
[2019-04-08 16:00] VITALS: BP 137/55
--- NOTE | 2019-04-08 17:57 | Pulmonology Progress Note ---
Assessment/Plan Assessment/Plan (1) Severe sepsis (2) Respiratory distress (3) Dyspnea (4) Hypoxia (5) Decubitus skin ulcer (6) Lung mass (7) Multifocal pneumonia (8) Staphylococcus aureus bacteremia (9) MRSA bacteremia (10) Psoas abscess (11) Hypothyroidism Assessment/Plan: resp status stable abx per ID PEG at TF resume Xarelto dc planning d/w RN Subjective ROS Limited/Unobtainable: Yes Allergies: Coded Allergies: No Known Allergies (Unverified , 01/18/19) Subjective awake tolerating tf no bleeding wounds no fever doesnt get out of bed on o2 Objective Last 24 Hour Vital Signs Date Time Temp Pulse Resp B/P (MAP) Pulse Ox O2 Delivery O2 Flow Rate FiO2 04/08/19 16:00 97.0 67 20 137/55 (82) 100 04/08/19 16:00 64 04/08/19 12:00 93 04/08/19 12:00 97.3 90 20 137/78 (97) 100 04/08/19 09:00 Nasal Cannula 2.0 Nasal Cannula 2.0 04/08/19 08:00 98.1 82 19 124/78 (93) 94 04/08/19 08:00 82 04/08/19 04:00 107 04/08/19 04:00 97.4 116 19 143/92 (109) 98 04/08/19 00:00 97.4 102 18 138/90 (106) 99 04/08/19 00:00 81 04/07/19 21:00 Nasal Cannula 2.0 Nasal Cannula 2.0 04/07/19 20:00 97.2 87 18 132/65 (87) 100 04/07/19 20:00 68 Intake and Output 04/07/19 04/08/19 19:00 07:00 Intake Total 820 ml 920 ml Output Total 1800 ml 1500 ml Balance -980 ml -580 ml Intake Oral 140 ml Free Water 300 ml 300 ml Tube Feeding 380 ml 620 ml Output Urine Total 1800 ml 1500 ml # Bowel Movements 1 General Appearance: WD/WN Respiratory/Chest: rhonchi Cardiovascular: normal rate, regular rhythm Abdomen: no organomegaly Skin: no rash Neurologic/Psychiatric: alert, responsive Laboratory Tests 04/08/19 04:30: White Blood Count 9.6, Red Blood Count 2.82L, Hemoglobin 8.0L, Hematocrit 25.6L , Mean Corpuscular Volume 91, Mean Corpuscular Hemoglobin 28.4, Mean Corpuscular Hemoglobin Concent 31.3L, Red Cell Distribution Width 15.8H, Platelet Count 446, Mean Platelet Volume 5.0L, Neutrophils (%) (Auto) 68.6, Lymphocytes (%) (Auto) 25.6, Monocytes (%) (Auto) 4.8, Eosinophils (%) (Auto) 0.6, Basophils (%) (Auto) 0.4, Sodium Level 138, Potassium Level 3.4L, Chloride Level 105, Carbon Dioxide Level 30, Anion Gap 3L, Blood Urea Nitrogen 6L, Creatinine 0.9, Estimat Glomerular Filtration Rate , Glucose Level 133H, Calcium Level 8.1L, Phosphorus Level 2.1L, Magnesium Level 1.4L 04/08/19 04:35: Ferritin 553H Current Medications Medications (Trade) Dose Ordered Sig/Vaughn Route PRN Reason Start Time Stop Time Status Last Admin Dose Admin Acetaminophen (Tylenol) 650 mg Q4H PRN NG Mild Pain/Temp > 100.5 04/06/19 18:45 04/29/19 18:41 04/07/19 00:44 Ascorbic Acid (Vitamin C) 250 mg EVERY 12 HOURS NG 04/06/19 21:00 04/26/19 17:59 04/08/19 08:32 Chlorhexidine Gluconate (Michelle-Hex 2%) 1 applic DAILY@2000 TOPIC 04/06/19 20:00 05/03/19 19:59 04/07/19 20:21 Furosemide (Lasix) 20 mg EVERY 12 HOURS NG 04/06/19 21:00 05/04/19 08:59 04/08/19 08:31 Levothyroxine Sodium (Synthroid) 100 mcg DAILY@0630 NG 04/07/19 06:30 04/30/19 06:29 04/08/19 05:43 Pantoprazole (Protonix) 40 mg DAILY IVP 04/07/19 09:00 04/26/19 08:59 04/08/19 08:32 Potassium Chloride (K-Dur) 20 meq DAILY ORAL 04/07/19 12:45 05/07/19 12:44 04/08/19 08:32 Sodium Hypochlorite (Dakin's Quarter Strength) 1 applic EVERY 12 HOURS TOPIC 04/06/19 21:00 04/27/19 00:00 04/08/19 08:31 Vancomycin HCl (Vanco rx to dose) 1 ea DAILY PRN MISC Per rx protocol 04/07/19 09:00 05/08/19 08:59 Vancomycin HCl 750 mg/Dextrose 275 ml @ 183.333 mls/hr Q24H IVPB 04/07/19 08:00 05/07/19 23:59 04/08/19 08:31 Zinc Sulfate (Zinc Sulfate) 220 mg DAILY NG 04/07/19 09:00 04/27/19 08:59 04/08/19 08:31 Bibiana Servin DO Apr 08, 2019 17:57
--- NOTE | 2019-04-08 17:59 | Surgery Progress Note ---
Surgery Progress Note Subjective Additional Comments no acute events comfortable stable exam unchanged labs noted Objective Last 24 Hour Vital Signs Date Time Temp Pulse Resp B/P (MAP) Pulse Ox O2 Delivery O2 Flow Rate FiO2 04/08/19 16:00 97.0 67 20 137/55 (82) 100 04/08/19 16:00 64 04/08/19 12:00 93 04/08/19 12:00 97.3 90 20 137/78 (97) 100 04/08/19 09:00 Nasal Cannula 2.0 Nasal Cannula 2.0 04/08/19 08:00 98.1 82 19 124/78 (93) 94 04/08/19 08:00 82 04/08/19 04:00 107 04/08/19 04:00 97.4 116 19 143/92 (109) 98 04/08/19 00:00 97.4 102 18 138/90 (106) 99 04/08/19 00:00 81 04/07/19 21:00 Nasal Cannula 2.0 Nasal Cannula 2.0 04/07/19 20:00 97.2 87 18 132/65 (87) 100 04/07/19 20:00 68 I&O Intake and Output 04/07/19 04/08/19 19:00 07:00 Intake Total 820 ml 920 ml Output Total 1800 ml 1500 ml Balance -980 ml -580 ml Intake Oral 140 ml Free Water 300 ml 300 ml Tube Feeding 380 ml 620 ml Output Urine Total 1800 ml 1500 ml # Bowel Movements 1 Dressing: saturated Wound: clean Drains: other Cardiovascular: RSR Respiratory: clear Abdomen: soft, non-tender, present bowel sounds Extremities: edema, no cyanosis, other Laboratory Tests Test 04/08/19 04:30 04/08/19 04:35 White Blood Count 9.6 K/UL (4.8-10.8) Red Blood Count 2.82 M/UL (4.70-6.10) L Hemoglobin 8.0 G/DL (14.2-18.0) L Hematocrit 25.6 % (42.0-52.0) L Mean Corpuscular Volume 91 FL (80-99) Mean Corpuscular Hemoglobin 28.4 PG (27.0-31.0) Mean Corpuscular Hemoglobin Concent 31.3 G/DL (32.0-36.0) L Red Cell Distribution Width 15.8 % (11.6-14.8) H Platelet Count 446 K/UL (150-450) Mean Platelet Volume 5.0 FL (6.5-10.1) L Neutrophils (%) (Auto) 68.6 % (45.0-75.0) Lymphocytes (%) (Auto) 25.6 % (20.0-45.0) Monocytes (%) (Auto) 4.8 % (1.0-10.0) Eosinophils (%) (Auto) 0.6 % (0.0-3.0) Basophils (%) (Auto) 0.4 % (0.0-2.0) Sodium Level 138 MMOL/L (136-145) Potassium Level 3.4 MMOL/L (3.5-5.1) L Chloride Level 105 MMOL/L (98-107) Carbon Dioxide Level 30 MMOL/L (21-32) Anion Gap 3 mmol/L (5-15) L Blood Urea Nitrogen 6 mg/dL (7-18) L Creatinine 0.9 MG/DL (0.55-1.30) Estimat Glomerular Filtration Rate mL/min (>60) Glucose Level 133 MG/DL (74-106) H Calcium Level 8.1 MG/DL (8.5-10.1) L Phosphorus Level 2.1 MG/DL (2.5-4.9) L Magnesium Level 1.4 MG/DL (1.8-2.4) L Ferritin 553 NG/ML (8-388) H Plan Problems: (1) Respiratory distress (2) Decubitus skin ulcer Assessment & Plan: Pt presented on admission with multiple pressure injuries and ulcerations 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 Base of wound has mixed slough and necrosis. Edges adherent and dark . Periwound indurated with darker skin tone. Pt complained of pain when minimally palpated. Mild odor noted Full thickness ulcer R tibia. Base of wound has slough. Edges adherent and flat ,Periwound without erythema or fluctuance. Stable dry eschar noted to R hallux. edges are dark but adherent to base of wound. Periwound dark without erythema or fluctuance Stable dry eschar noted to R st metatarsal head. Periwound pale without fluctuance Stable dry eschar noted to dorsal aspects of R 3rd and 4th metatarsals. Full thickness ulcer lateral R 5th metatarsal. base of wound with some areas of necrosis and edges are black . No odor or exudate noted Stable dry eschar R heel . Periwound fluctuant without erythema. Pt complained of pain when minimally palpated. Stable dry eschar noted to dorso/flexor L foot. Periwound without erythema , induration or fluctuance Reabsorbing blood blister noted to medial L foot. Periwound without erythema or fluctuance L heel is dry and blanchable with historical scarring from previous wounds .Dry flaky skin noted to both feet. Tx.Plan: Cleanse sacral wound with Dakin's 0.125% stefani. Loose pack wound with Dakin's moist Kerlix. Apply Moisture Barrier paste to borders and cover with Optifoam drsg. Twice daily and prn. Cleanse Wound R tibia with Saline. Apply Therahoney. Cover with Optifoam drsg. Change every 3 days and prn.Apply Cavilon Skin BArrier to both heels. Cover each heel with Optifoam drsg. change every 7 days and prn APM/PHIL mattress overlay. Reposition at least every 2hours or as tolerated. Off-load heels with pillow. (3) Severe sepsis Assessment & Plan: leukocytosis resolved anemia lactic acidosis resolved improving septic MRSA bacteremia labs noted imaging noted Cont IV abx as per ID feeds wounds evaluated and care plan as above labs noted f/u cxr will follow with recs thank you DAILY ESTIMATED NEEDS: Needs based on Wound, critical care 78.6kg 25-30 kcals/kg 4782-9199 total kcals 1.25-2 g protein/kg 98-157 g total protein Fluid per MD, on lasix NUTRITION DIAGNOSIS: 1) Increased kcal/ pro needs r/t wound healing as evidenced by full thickness sacral wound, pending updated eval. 2) Swallowing difficulty r/t respiratory status as evidenced by s/p RR, pt now orally intubated, on pressor support. CURRENT DIET: Regular-> pt now intubated ENTERAL NUTRITION RECOMMENDATIONS: Osmolite 1.5 @55ml/hr x24 hrs + Prosource BID to provide 1320ml, 1980 kcal, 83g + 22g pro, 1006ml free H2O - WHEN HEMODYNAMICALLY STABLE, rec to obtain GI access, initiate non oral feeds to meed est nutritional needs - Start Osmolite 1.5 @25ml/hr for 6 hrs, advance as tolerated 10ml/hr q4-6 hrs to goal. - Flush per MD/ HOB over 30 degrees ADDITIONAL RECOMMENDATIONS: 1) Obtain a CALIBRATED bed wt 2) Feed w/ hemodynamic stability -> currently on pressors x2 3) WOUND CARE: Add BRUCE BID w/ GI access Add VIT C 250mg BID Add ZnSO4 220mg daily x10 days 4) On lasix, monitor lytes daily 5) METER SHOP SUPERVISOR eval upon extubation (4) Dyspnea (5) Hypoxia Tawanda Alfaro Apr 08, 2019 17:59
--- NOTE | 2019-04-08 19:14 | NUR ---
HAND-OFF: Report given to CELINE Almanzar.
--- NOTE | 2019-04-08 19:30 | NUR ---
NURSE NOTES: Received patient from Josselin BERGER. Patient in bed, oriented x1, confused. On 2L NC, no s/s of respiratory distress. On tube feeding, osmolite 1.5 at 60ml/hr. Jose catheter intact, patent and draining. BLE elevated, heels offloading. On air mattress. PICC line on BECK, dressing intact last changed 04/04. Bed in low position, locked, bed alarm on, call light within reach.
[2019-04-08 20:00] VITALS: BP 153/74
[2019-04-08] MEDS: Dyna-Hex 2% Top Sol 2oz TOPIC SCH (20:15)
--- NOTE | 2019-04-08 22:00 | Discharge Summary ---
DATE OF ADMISSION: 03/26/2019 DATE OF DISCHARGE: 04/08/2019 HOSPITAL COURSE: This is an elderly male, who came with aspiration pneumonia, septic shock, dehydration, and . The patient was admitted in the ICU for 3 to 4 days with acute respiratory failure. The patient was intubated successfully, he is extubated, and did very well. He was transferred to [facility] and now he is in telemetry bed. He is tolerating diet. He failed the swallow evaluation. PEG placement was done. Family was aware of. The patient's prognosis is still critical. The patient has been hospitalized multiple times . He also has sacral decubiti stage IV. His wounds are probably healing, but is still stage IV. PHYSICAL EXAMINATION: GENERAL: The patient also has episode of AFib, which has resolved. Cardiology on the case. VITAL SIGNS: Stable. CHEST: Bilaterally few crackles. CARDIOVASCULAR: Regular rhythm. No gallop. No murmur. ABDOMEN: Soft. G-tube in place. EXTREMITIES: CCE. Sacral decubitus stage IV ulcer. ASSESSMENT AND PLAN: 1. The patient at this time has failed swallow evaluation and G-tube was placed. 2. GI consult was obtained. 3. Sacral decubiti, improving and currently is on wound care. 4. Aspiration pneumonia, resolved. He is on IV antibiotic, vancomycin. The plan was discussed with charge nurse. 5. Dementia, is probably getting worse. 6. Dehydration, improved. 7. Severe protein malnutrition secondary to dysphagia. He has really started G-tube. Discussed with the charge nurse. Discharge plan to SNF. Discussed with the case monitor. Pedrito Mims M.D. DR: АННА JOB#: [id number] CC:
[2019-04-09] VITALS (7 sets, daily range): BP systolic 122–167; BP diastolic 45–81
--- NOTE | 2019-04-09 04:30 | NUR ---
NURSE NOTES: No blood return from PICC, notified lab to do peripheral draw for am labs.
--- NOTE | 2019-04-09 07:07 | NUR ---
HAND-OFF: Report given to Josselin BERGER. Plan of care endorsed.
--- NOTE | 2019-04-09 07:19 | NUR ---
NURSE NOTES: Received report from CELINE Almanzar. Patient in bed resting, no active s/s cardiac, respiratory distress noticed at this time. Patient on 2L oxygen via NC, AOx1, open eyes spontaneously, SR with 1st AVB, BBB with HR 82. PICC line on upper left arm, asymptomatic, patent, intact. Jose Catheter draining well to gravity. G-tube feeding on, tolerating well, no residual at this time, running as prescribed rate. Patient on P200 mattress. Bed in lowest position, side rails upx2, call light within reach. Will continue to monitor.
--- NOTE | 2019-04-09 07:35 | General Progress Note ---
Assessment/Plan Problem List: (1) GI bleed ICD Codes: K92.2 - Gastrointestinal hemorrhage, unspecified SNOMED: 80799036 (2) Anemia ICD Codes: D64.9 - Anemia, unspecified SNOMED: 992822542 (3) Lung mass ICD Codes: R91.8 - Other nonspecific abnormal finding of lung field SNOMED: 521109393 (4) Decubitus skin ulcer ICD Codes: L89.90 - Pressure ulcer of unspecified site, unspecified stage SNOMED: 407448304 (5) Hypothyroidism ICD Codes: E03.9 - Hypothyroidism, unspecified SNOMED: 47272750 Status: stable Assessment/Plan: (1) GI bleed ICD Codes: K92.2 - Gastrointestinal hemorrhage, unspecified SNOMED: 58950580 (2) Anemia ICD Codes: D64.9 - Anemia, unspecified SNOMED: 071826085 (3) Respiratory distress ICD Codes: R06.03 - Acute respiratory distress SNOMED: 317647491 (4) Electrolyte abnormality ICD Codes: E87.8 - Other disorders of electrolyte and fluid balance, not elsewhere classified SNOMED: 488557816 Status: unchanged SUMMARY OF FINDINGS: Gastritis, otherwise normal upper endoscopic examination. ST evaluation reviewed s/p PEG RECOMMENDATIONS: resume Xarelto per primary GTF per RD okay for oral gratification per ST electrolyte correction prn transfusions ppi pulm care Subjective ROS Limited/Unobtainable: No Allergies: Coded Allergies: No Known Allergies (Unverified , 01/18/19) Objective Last 24 Hour Vital Signs Date Time Temp Pulse Resp B/P (MAP) Pulse Ox O2 Delivery O2 Flow Rate FiO2 04/09/19 04:00 97.2 75 18 143/67 (92) 98 04/09/19 04:00 82 04/09/19 00:30 68 132/57 (82) 04/09/19 00:00 59 04/09/19 00:00 96.8 76 18 167/81 (109) 100 04/08/19 23:41 Nasal Cannula 2.0 Nasal Cannula 2.0 04/08/19 20:00 73 04/08/19 20:00 97.2 74 18 153/74 (100) 100 04/08/19 19:58 Nasal Cannula 2.0 Nasal Cannula 2.0 04/08/19 16:00 97.0 67 20 137/55 (82) 100 04/08/19 16:00 64 04/08/19 12:00 93 04/08/19 12:00 97.3 90 20 137/78 (97) 100 04/08/19 09:00 Nasal Cannula 2.0 Nasal Cannula 2.0 04/08/19 08:00 98.1 82 19 124/78 (93) 94 04/08/19 08:00 82 Intake and Output 04/08/19 04/09/19 19:00 07:00 Intake Total 60 ml 960 ml Output Total 2400 ml 2700 ml Balance -2340 ml -1740 ml Free Water 300 ml Tube Feeding 60 ml 660 ml Output Urine Total 2400 ml 2700 ml # Bowel Movements 1 1 Height (Feet): 6 Height (Inches): 6.00 Weight (Pounds): 196 General Appearance: no apparent distress EENT: normal ENT inspection Neck: supple Cardiovascular: normal rate Respiratory/Chest: decreased breath sounds Abdomen: normal bowel sounds, non tender, soft Extremities: non-tender Sergei Roche MD Apr 09, 2019 07:35
[2019-04-09] MEDS: Vancomycin 750mg/D5W 275ml IVPB SCH ×2 (08:34)
[2019-04-09] MEDS: Pantoprazole Inj IVP SCH (08:35)
[2019-04-09] MEDS: Zinc Sulfate 220mg cap NG SCH (08:37)
[2019-04-09] MEDS: Ascorbic Acid 500mg tab NG SCH ×2 (08:37→21:55)
[2019-04-09] MEDS: Dakin's 0.125% Soln (Quarter Strength) 16oz TOPIC SCH ×2 (09:04→21:55)
[2019-04-09 10:18] LABS: BASOPHILS % (AUTO) 0.5 % (0.0-2.0); EOSINOPHILS % (AUTO) 2.4 % (0.0-3.0); MEAN CORPUSCULAR VOLUME 91 FL (80-99); MONOCYTES % (AUTO) 7.9 % (1.0-10.0); NEUTROPHILS % (AUTO) 67.3 % (45.0-75.0); PLATELET COUNT 451 K/UL (150-450); RED BLOOD COUNT 2.86 M/UL (4.70-6.10); RED CELL DISTRIBUTION WIDTH 15.2 % (11.6-14.8); WHITE BLOOD COUNT 7.6 K/UL (4.8-10.8)
[2019-04-09 10:38] LABS: ANION GAP 2 mmol/L (5-15); BLOOD UREA NITROGEN 8 mg/dL (7-18); CALCIUM 8.2 MG/DL (8.5-10.1); CARBON DIOXIDE 33 MMOL/L (21-32); CHLORIDE 103 MMOL/L (98-107); CREATININE 0.8 MG/DL (0.55-1.30); POTASSIUM 3.7 MMOL/L (3.5-5.1); SODIUM 138 MMOL/L (136-145)
--- NOTE | 2019-04-09 11:51 | Surgery Progress Note ---
Surgery Progress Note Subjective Additional Comments Patient seen and examined bedside. No acute events. Resting comfortably. Meds. Labs noted. Vital stable. Objective Last 24 Hour Vital Signs Date Time Temp Pulse Resp B/P (MAP) Pulse Ox O2 Delivery O2 Flow Rate FiO2 04/09/19 09:00 Nasal Cannula 2.0 Nasal Cannula 2.0 04/09/19 08:00 96.8 77 18 141/74 (96) 100 04/09/19 08:00 67 04/09/19 04:00 97.2 75 18 143/67 (92) 98 04/09/19 04:00 82 04/09/19 00:30 68 132/57 (82) 04/09/19 00:00 59 04/09/19 00:00 96.8 76 18 167/81 (109) 100 04/08/19 23:41 Nasal Cannula 2.0 Nasal Cannula 2.0 04/08/19 20:00 73 04/08/19 20:00 97.2 74 18 153/74 (100) 100 04/08/19 19:58 Nasal Cannula 2.0 Nasal Cannula 2.0 04/08/19 16:00 97.0 67 20 137/55 (82) 100 04/08/19 16:00 64 04/08/19 12:00 93 04/08/19 12:00 97.3 90 20 137/78 (97) 100 I&O Intake and Output 04/08/19 04/09/19 18:59 06:59 Intake Total 60 ml 1020 ml Output Total 2400 ml 2700 ml Balance -2340 ml -1680 ml Free Water 300 ml Tube Feeding 60 ml 720 ml Output Urine Total 2400 ml 2700 ml # Bowel Movements 1 1 Dressing: saturated Wound: other Drains: other Cardiovascular: RSR Respiratory: decreased breath sounds Abdomen: soft, present bowel sounds, non-distended Extremities: no cyanosis, other Laboratory Tests Test 04/09/19 09:30 White Blood Count 7.6 K/UL (4.8-10.8) Red Blood Count 2.86 M/UL (4.70-6.10) L Hemoglobin 8.0 G/DL (14.2-18.0) L Hematocrit 26.0 % (42.0-52.0) L Mean Corpuscular Volume 91 FL (80-99) Mean Corpuscular Hemoglobin 28.1 PG (27.0-31.0) Mean Corpuscular Hemoglobin Concent 31.0 G/DL (32.0-36.0) L Red Cell Distribution Width 15.2 % (11.6-14.8) H Platelet Count 451 K/UL (150-450) H Mean Platelet Volume 4.9 FL (6.5-10.1) L Neutrophils (%) (Auto) 67.3 % (45.0-75.0) Lymphocytes (%) (Auto) 22.0 % (20.0-45.0) Monocytes (%) (Auto) 7.9 % (1.0-10.0) Eosinophils (%) (Auto) 2.4 % (0.0-3.0) Basophils (%) (Auto) 0.5 % (0.0-2.0) Sodium Level 138 MMOL/L (136-145) Potassium Level 3.7 MMOL/L (3.5-5.1) Chloride Level 103 MMOL/L (98-107) Carbon Dioxide Level 33 MMOL/L (21-32) H Anion Gap 2 mmol/L (5-15) L Blood Urea Nitrogen 8 mg/dL (7-18) Creatinine 0.8 MG/DL (0.55-1.30) Estimat Glomerular Filtration Rate mL/min (>60) Glucose Level 132 MG/DL (74-106) H Calcium Level 8.2 MG/DL (8.5-10.1) L Magnesium Level 1.6 MG/DL (1.8-2.4) L Plan Problems: (1) Respiratory distress (2) Decubitus skin ulcer Assessment & Plan: Pt presented on admission with multiple pressure injuries and ulcerations 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 Base of wound has mixed slough and necrosis. Edges adherent and dark . Periwound indurated with darker skin tone. Pt complained of pain when minimally palpated. Mild odor noted Full thickness ulcer R tibia. Base of wound has slough. Edges adherent and flat ,Periwound without erythema or fluctuance. Stable dry eschar noted to R hallux. edges are dark but adherent to base of wound. Periwound dark without erythema or fluctuance Stable dry eschar noted to R st metatarsal head. Periwound pale without fluctuance Stable dry eschar noted to dorsal aspects of R 3rd and 4th metatarsals. Full thickness ulcer lateral R 5th metatarsal. base of wound with some areas of necrosis and edges are black . No odor or exudate noted Stable dry eschar R heel . Periwound fluctuant without erythema. Pt complained of pain when minimally palpated. Stable dry eschar noted to dorso/flexor L foot. Periwound without erythema , induration or fluctuance Reabsorbing blood blister noted to medial L foot. Periwound without erythema or fluctuance L heel is dry and blanchable with historical scarring from previous wounds .Dry flaky skin noted to both feet. Tx.Plan: Cleanse sacral wound with Dakin's 0.125% stefani. Loose pack wound with Dakin's moist Kerlix. Apply Moisture Barrier paste to borders and cover with Optifoam drsg. Twice daily and prn. Cleanse Wound R tibia with Saline. Apply Therahoney. Cover with Optifoam drsg. Change every 3 days and prn.Apply Cavilon Skin BArrier to both heels. Cover each heel with Optifoam drsg. change every 7 days and prn APM/PHIL mattress overlay. Reposition at least every 2hours or as tolerated. Off-load heels with pillow. (3) Severe sepsis Assessment & Plan: leukocytosis resolved anemia lactic acidosis resolved improving septic MRSA bacteremia labs noted imaging noted Cont IV abx as per ID feeds wounds evaluated and care plan as above labs noted f/u cxr will follow with recs thank you DAILY ESTIMATED NEEDS: Needs based on Wound, critical care 78.6kg 25-30 kcals/kg 0298-0546 total kcals 1.25-2 g protein/kg 98-157 g total protein Fluid per MD, on lasix NUTRITION DIAGNOSIS: 1) Increased kcal/ pro needs r/t wound healing as evidenced by full thickness sacral wound, pending updated eval. 2) Swallowing difficulty r/t respiratory status as evidenced by s/p RR, pt now orally intubated, on pressor support. CURRENT DIET: Regular-> pt now intubated ENTERAL NUTRITION RECOMMENDATIONS: Osmolite 1.5 @55ml/hr x24 hrs + Prosource BID to provide 1320ml, 1980 kcal, 83g + 22g pro, 1006ml free H2O - WHEN HEMODYNAMICALLY STABLE, rec to obtain GI access, initiate non oral feeds to meed est nutritional needs - Start Osmolite 1.5 @25ml/hr for 6 hrs, advance as tolerated 10ml/hr q4-6 hrs to goal. 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
--- NOTE | 2019-04-09 13:25 | Infectious Diseases Prog Note ---
Assessment/Plan Assessment/Plan A; Recurrent MRSA sepsis Pneumonia L1-L2 discitis/osteomyelitis Psoas abscess Acute respiratory failure, resolved Anemia Gastritis Stage 4 sacral ulcer P; Continue Vancomycin X 28 days Subjective ROS Limited/Unobtainable: Yes Constitutional: Denies: fever Allergies: Coded Allergies: No Known Allergies (Unverified , 01/18/19) Objective Vital Signs Last 24 Hour Vital Signs Date Time Temp Pulse Resp B/P (MAP) Pulse Ox O2 Delivery O2 Flow Rate FiO2 04/09/19 12:00 66 04/09/19 12:00 97.3 80 18 126/75 (92) 100 04/09/19 09:00 Nasal Cannula 2.0 Nasal Cannula 2.0 04/09/19 08:00 96.8 77 18 141/74 (96) 100 04/09/19 08:00 67 04/09/19 04:00 97.2 75 18 143/67 (92) 98 04/09/19 04:00 82 04/09/19 00:30 68 132/57 (82) 04/09/19 00:00 59 04/09/19 00:00 96.8 76 18 167/81 (109) 100 04/08/19 23:41 Nasal Cannula 2.0 Nasal Cannula 2.0 04/08/19 20:00 73 04/08/19 20:00 97.2 74 18 153/74 (100) 100 04/08/19 19:58 Nasal Cannula 2.0 Nasal Cannula 2.0 04/08/19 16:00 97.0 67 20 137/55 (82) 100 04/08/19 16:00 64 Height (Feet): 6 Height (Inches): 6.00 Weight (Pounds): 196 HEENT: mucous membranes moist Respiratory/Chest: lungs clear Cardiovascular: normal rate, other - left arm PICC line Abdomen: soft, non tender, other - GT feeding Extremities: other - mild edema Neurologic/Psychiatric: other - Sleeping Laboratory Tests Test 04/09/19 09:30 White Blood Count 7.6 K/UL (4.8-10.8) Red Blood Count 2.86 M/UL (4.70-6.10) L Hemoglobin 8.0 G/DL (14.2-18.0) L Hematocrit 26.0 % (42.0-52.0) L Mean Corpuscular Volume 91 FL (80-99) Mean Corpuscular Hemoglobin 28.1 PG (27.0-31.0) Mean Corpuscular Hemoglobin Concent 31.0 G/DL (32.0-36.0) L Red Cell Distribution Width 15.2 % (11.6-14.8) H Platelet Count 451 K/UL (150-450) H Mean Platelet Volume 4.9 FL (6.5-10.1) L Neutrophils (%) (Auto) 67.3 % (45.0-75.0) Lymphocytes (%) (Auto) 22.0 % (20.0-45.0) Monocytes (%) (Auto) 7.9 % (1.0-10.0) Eosinophils (%) (Auto) 2.4 % (0.0-3.0) Basophils (%) (Auto) 0.5 % (0.0-2.0) Sodium Level 138 MMOL/L (136-145) Potassium Level 3.7 MMOL/L (3.5-5.1) Chloride Level 103 MMOL/L (98-107) Carbon Dioxide Level 33 MMOL/L (21-32) H Anion Gap 2 mmol/L (5-15) L Blood Urea Nitrogen 8 mg/dL (7-18) Creatinine 0.8 MG/DL (0.55-1.30) Estimat Glomerular Filtration Rate mL/min (>60) Glucose Level 132 MG/DL (74-106) H Calcium Level 8.2 MG/DL (8.5-10.1) L Magnesium Level 1.6 MG/DL (1.8-2.4) L Current Medications Medications (Trade) Dose Ordered Sig/Vaughn Route PRN Reason Start Time Stop Time Status Last Admin Dose Admin Acetaminophen (Tylenol) 650 mg Q4H PRN NG Mild Pain/Temp > 100.5 04/06/19 18:45 04/29/19 18:41 04/07/19 00:44 Ascorbic Acid (Vitamin C) 250 mg EVERY 12 HOURS NG 04/06/19 21:00 04/26/19 17:59 04/09/19 08:37 Chlorhexidine Gluconate (Michelle-Hex 2%) 1 applic DAILY@1999 TOPIC 04/06/19 20:00 05/03/19 19:59 04/08/19 20:15 Furosemide (Lasix) 20 mg EVERY 12 HOURS NG 04/06/19 21:00 05/04/19 08:59 04/09/19 08:37 Levothyroxine Sodium (Synthroid) 100 mcg DAILY@0630 NG 04/07/19 06:30 04/30/19 06:29 04/09/19 05:30 Pantoprazole (Protonix) 40 mg DAILY IVP 04/07/19 09:00 04/26/19 08:59 04/09/19 08:35 Potassium Chloride (K-Dur) 20 meq DAILY ORAL 04/07/19 12:45 05/07/19 12:44 04/09/19 08:37 Sodium Hypochlorite (Dakin's Quarter Strength) 1 applic EVERY 12 HOURS TOPIC 04/06/19 21:00 04/27/19 00:00 04/09/19 09:04 Vancomycin HCl (Vanco rx to dose) 1 ea DAILY PRN MISC Per rx protocol 04/07/19 09:00 05/08/19 08:59 Vancomycin HCl 750 mg/Dextrose 275 ml @ 183.333 mls/hr Q24H IVPB 04/07/19 08:00 05/07/19 23:59 04/09/19 08:34 Zinc Sulfate (Zinc Sulfate) 220 mg DAILY NG 04/07/19 09:00 04/27/19 08:59 04/09/19 08:37 Isaac Martinez MD Apr 09, 2019 13:25
--- NOTE | 2019-04-09 13:54 | NUR ---
NURSE NOTES: Dr. Mims made aware of Mg level today 1.6. Per Dr. Mims, 1g Mg IV once. Order noted, entered, carried out.
--- NOTE | 2019-04-09 15:34 | Cardiac Electrophysiology PN ---
Assessment/Plan Assessment/Plan 1. S/P Septic shock. Blood Cx positive for GP cocci. On IV antibiotics. EF 60 to 65 percent with mild diastolic dysfunction. 2. Atrial fib with RVR 130s today. Add Cardizem 30 tid. On Xarelto Still goes in and out 3. S/P Respiratory failure, likely due to pneumonia. On broad-spectrum IV antibiotics. 4. Mild diastolic dysfunction with elevated BNP. 5. History of PE. On Xarelto [address] Oakley FU Dr Najera 6. UTI. 7. Dysphagia, S/P PEG DW RN, daughter and RN Subjective Subjective Had atrial fib with CVR 04/07/19 and RVR 130s today. PEG feeding going on. Family at bedside. Objective Last 24 Hour Vital Signs Date Time Temp Pulse Resp B/P (MAP) Pulse Ox O2 Delivery O2 Flow Rate FiO2 04/09/19 12:00 66 04/09/19 12:00 97.3 80 18 126/75 (92) 100 04/09/19 09:00 Nasal Cannula 2.0 Nasal Cannula 2.0 04/09/19 08:00 96.8 77 18 141/74 (96) 100 04/09/19 08:00 67 04/09/19 04:00 97.2 75 18 143/67 (92) 98 04/09/19 04:00 82 04/09/19 00:30 68 132/57 (82) 04/09/19 00:00 59 04/09/19 00:00 96.8 76 18 167/81 (109) 100 04/08/19 23:41 Nasal Cannula 2.0 Nasal Cannula 2.0 04/08/19 20:00 73 04/08/19 20:00 97.2 74 18 153/74 (100) 100 04/08/19 19:58 Nasal Cannula 2.0 Nasal Cannula 2.0 04/08/19 16:00 97.0 67 20 137/55 (82) 100 04/08/19 16:00 64 Intake and Output 04/08/19 04/09/19 18:59 06:59 Intake Total 60 ml 1020 ml Output Total 2400 ml 2700 ml Balance -2340 ml -1680 ml Free Water 300 ml Tube Feeding 60 ml 720 ml Output Urine Total 2400 ml 2700 ml # Bowel Movements 1 1 Laboratory Tests Test 04/09/19 09:30 White Blood Count 7.6 K/UL (4.8-10.8) Red Blood Count 2.86 M/UL (4.70-6.10) L Hemoglobin 8.0 G/DL (14.2-18.0) L Hematocrit 26.0 % (42.0-52.0) L Mean Corpuscular Volume 91 FL (80-99) Mean Corpuscular Hemoglobin 28.1 PG (27.0-31.0) Mean Corpuscular Hemoglobin Concent 31.0 G/DL (32.0-36.0) L Red Cell Distribution Width 15.2 % (11.6-14.8) H Platelet Count 451 K/UL (150-450) H Mean Platelet Volume 4.9 FL (6.5-10.1) L Neutrophils (%) (Auto) 67.3 % (45.0-75.0) Lymphocytes (%) (Auto) 22.0 % (20.0-45.0) Monocytes (%) (Auto) 7.9 % (1.0-10.0) Eosinophils (%) (Auto) 2.4 % (0.0-3.0) Basophils (%) (Auto) 0.5 % (0.0-2.0) Sodium Level 138 MMOL/L (136-145) Potassium Level 3.7 MMOL/L (3.5-5.1) Chloride Level 103 MMOL/L (98-107) Carbon Dioxide Level 33 MMOL/L (21-32) H Anion Gap 2 mmol/L (5-15) L Blood Urea Nitrogen 8 mg/dL (7-18) Creatinine 0.8 MG/DL (0.55-1.30) Estimat Glomerular Filtration Rate mL/min (>60) Glucose Level 132 MG/DL (74-106) H Calcium Level 8.2 MG/DL (8.5-10.1) L Magnesium Level 1.6 MG/DL (1.8-2.4) L Objective HEAD AND NECK: No JVD LUNGS: Coarse rhonchi. CARDIOVASCULAR: Regular S1 and S2 with no gallop or murmur. ABDOMEN: Soft. PEG in place EXTREMITIES: No pitting edema. Christian Vargas MD Apr 09, 2019 15:34
--- NOTE | 2019-04-09 16:31 | Pulmonology Progress Note ---
Assessment/Plan Assessment/Plan (1) Severe sepsis (2) Respiratory distress (3) Dyspnea (4) Hypoxia (5) Decubitus skin ulcer (6) Lung mass (7) Multifocal pneumonia (8) Staphylococcus aureus bacteremia (9) MRSA bacteremia (10) Psoas abscess (11) Hypothyroidism Assessment/Plan: resp status stable abx per ID diuresis as bp and renal function will tolerate PEG at TF resume Xarelto CXR wednesday dc planning d/w RN Subjective Constitutional: Reports: no symptoms HEENT: Repors: no symptoms Respiratory: Reports: productive cough, shortness of breath Cardiovascular: Reports: no symptoms Gastrointestinal/Abdominal: Reports: no symptoms Genitourinary: Reports: no symptoms Allergies: Coded Allergies: No Known Allergies (Unverified , 01/18/19) Subjective no events noted over night awake tolerating tf no bleeding wounds no fever doesnt get out of bed on o2 Objective Last 24 Hour Vital Signs Date Time Temp Pulse Resp B/P (MAP) Pulse Ox O2 Delivery O2 Flow Rate FiO2 04/09/19 16:00 97.1 68 18 122/45 (70) 100 04/09/19 12:00 66 04/09/19 12:00 97.3 80 18 126/75 (92) 100 04/09/19 09:00 Nasal Cannula 2.0 Nasal Cannula 2.0 04/09/19 08:00 96.8 77 18 141/74 (96) 100 04/09/19 08:00 67 04/09/19 04:00 97.2 75 18 143/67 (92) 98 04/09/19 04:00 82 04/09/19 00:30 68 132/57 (82) 04/09/19 00:00 59 04/09/19 00:00 96.8 76 18 167/81 (109) 100 04/08/19 23:41 Nasal Cannula 2.0 Nasal Cannula 2.0 04/08/19 20:00 73 04/08/19 20:00 97.2 74 18 153/74 (100) 100 04/08/19 19:58 Nasal Cannula 2.0 Nasal Cannula 2.0 Intake and Output 04/08/19 04/09/19 18:59 06:59 Intake Total 60 ml 1020 ml Output Total 2400 ml 2700 ml Balance -2340 ml -1680 ml Free Water 300 ml Tube Feeding 60 ml 720 ml Output Urine Total 2400 ml 2700 ml # Bowel Movements 1 1 General Appearance: WD/WN Respiratory/Chest: rhonchi Cardiovascular: normal rate, murmur systolic Abdomen: soft, non tender, no organomegaly Extremities: no cyanosis Skin: lesions Neurologic/Psychiatric: abnormal gait, alert Laboratory Tests 04/09/19 09:30: White Blood Count 7.6, Red Blood Count 2.86L, Hemoglobin 8.0L, Hematocrit 26.0L , Mean Corpuscular Volume 91, Mean Corpuscular Hemoglobin 28.1, Mean Corpuscular Hemoglobin Concent 31.0L, Red Cell Distribution Width 15.2H, Platelet Count 451H, Mean Platelet Volume 4.9L, Neutrophils (%) (Auto) 67.3, Lymphocytes (%) (Auto) 22.0, Monocytes (%) (Auto) 7.9, Eosinophils (%) (Auto) 2.4, Basophils (%) (Auto) 0.5, Sodium Level 138, Potassium Level 3.7, Chloride Level 103, Carbon Dioxide Level 33H, Anion Gap 2L, Blood Urea Nitrogen 8, Creatinine 0.8, Estimat Glomerular Filtration Rate , Glucose Level 132H, Calcium Level 8.2L, Magnesium Level 1.6L Current Medications Medications (Trade) Dose Ordered Sig/Vaughn Route PRN Reason Start Time Stop Time Status Last Admin Dose Admin Acetaminophen (Tylenol) 650 mg Q4H PRN NG Mild Pain/Temp > 100.5 04/06/19 18:45 04/29/19 18:41 04/07/19 00:44 Ascorbic Acid (Vitamin C) 250 mg EVERY 12 HOURS NG 04/06/19 21:00 04/26/19 17:59 04/09/19 08:37 Chlorhexidine Gluconate (Michelle-Hex 2%) 1 applic DAILY@2000 TOPIC 04/06/19 20:00 05/03/19 19:59 04/08/19 20:15 Diltiazem HCl (Cardizem) 30 mg EVERY 8 HOURS GT 04/09/19 22:00 05/09/19 21:59 Furosemide (Lasix) 20 mg EVERY 12 HOURS NG 04/06/19 21:00 05/04/19 08:59 04/09/19 08:37 Levothyroxine Sodium (Synthroid) 100 mcg DAILY@0630 NG 04/07/19 06:30 04/30/19 06:29 04/09/19 05:30 Pantoprazole (Protonix) 40 mg DAILY IVP 04/07/19 09:00 04/26/19 08:59 04/09/19 08:35 Potassium Chloride (K-Dur) 20 meq DAILY ORAL 04/07/19 12:45 05/07/19 12:44 04/09/19 08:37 Sodium Hypochlorite (Dakin's Quarter Strength) 1 applic EVERY 12 HOURS TOPIC 04/06/19 21:00 04/27/19 00:00 04/09/19 09:04 Vancomycin HCl (Vanco rx to dose) 1 ea DAILY PRN MISC Per rx protocol 04/07/19 09:00 05/08/19 08:59 Vancomycin HCl 750 mg/Dextrose 275 ml @ 183.333 mls/hr Q24H IVPB 04/07/19 08:00 05/07/19 23:59 04/09/19 08:34 Zinc Sulfate (Zinc Sulfate) 220 mg DAILY NG 04/07/19 09:00 04/27/19 08:59 04/09/19 08:37 Bibiana Servin DO Apr 09, 2019 16:31
--- NOTE | 2019-04-09 19:37 | NUR ---
HAND-OFF: Report given to CELINE Lockett.
--- NOTE | 2019-04-09 19:55 | NUR ---
NURSE NOTES: Pt received from CELINE Schwab alert and oriented x1 to name only with no acute s/s of distress noted. Double lumen PICC Line asymptomatic and patent on L upper arm, aspirated and flushed with NS. Dressings dry and intact. On 2L NC, saturating at 97% with no acute s/s of resp distress noted. Jose catheter patent and draining to clear and yellow urine. G tube feed tolerated - with no s/s of abd distention or pain, 5 ml gastric residual upon assessment. Will continue to monitor. Bed alarm on, bed in lowest position. Call light and belongings within reach.
[2019-04-09] MEDS: dilTIAZem HCl 30mg tab GT SCH (21:55)
[2019-04-09] MEDS: Dyna-Hex 2% Top Sol 2oz TOPIC SCH (21:55)
[2019-04-09] MEDS ORDERED: Cathflo Alteplase 2mg Inj INJ SCH (23:45)
[2019-04-10] VITALS (8 sets, daily range): BP systolic 119–173; BP diastolic 55–75
[2019-04-10] MEDS ORDERED: Cathflo Alteplase 2mg Inj INJ SCH ×2 (00:45→19:30)
--- NOTE | 2019-04-10 04:31 | NUR ---
NURSE NOTES: Pt currently asleep, resting in bed with no acute s/s of distress noted. On 2L NC, saturating at 97%. Jose catheter draining to clear and yellow urine. Gtube feed tolerated - 10 ml gastric residual, HOB elevated. Aspiration precautions implemented. Bed alarm on, bed in lowest position. Call light and belongings within reach.
[2019-04-10] MEDS: dilTIAZem HCl 30mg tab GT SCH ×3 (05:57→21:21)
--- NOTE | 2019-04-10 07:35 | NUR ---
HAND-OFF: Report given to CELINE Bell.
[2019-04-10] MEDS ORDERED: Cathflo Alteplase 2mg Inj INJ ONE (09:00)
[2019-04-10] MEDS: Ascorbic Acid 500mg tab NG SCH ×2 (09:09→21:21)
[2019-04-10] MEDS: Pantoprazole Inj IVP SCH (09:09)
[2019-04-10] MEDS: Zinc Sulfate 220mg cap NG SCH (09:09)
--- NOTE | 2019-04-10 09:32 | Diagnostic Imaging Report ---
22 EXAM: XR Chest, 1 View CLINICAL HISTORY: CLT GRF TECHNIQUE: Frontal view of the chest. COMPARISON: Chest x-ray 04/03/19 FINDINGS: Lungs: Interstitial prominence similar to prior study. Limited evaluation of the lung apices due to chin overlying. Pleural space: Tiny left pleural effusion. No definite pneumothorax. Heart: Unremarkable. No cardiomegaly. Mediastinum: Unremarkable. Bones/joints: Unremarkable. Tubes, lines and devices: Interval removal of endotracheal tube and NG tube. Interval placement of left PICC line tip at the innominate vein at the arch. IMPRESSION: 1. Interval removal of endotracheal tube and NG tube. 2. Interval placement of left PICC line tip at the innominate vein at the arch. 3. Interstitial prominence similar to prior study. 4. Tiny left pleural effusion. 5. Limited evaluation of the lung apices due to overlying chin.
[2019-04-10] MEDS: Vancomycin 750mg/D5W 275ml IVPB SCH ×2 (10:12)
--- NOTE | 2019-04-10 10:20 | Pulmonology Progress Note ---
Assessment/Plan Assessment/Plan (1) Severe sepsis (2) Respiratory distress (3) Dyspnea (4) Hypoxia (5) Decubitus skin ulcer (6) Lung mass (7) Multifocal pneumonia (8) Staphylococcus aureus bacteremia (9) MRSA bacteremia (10) Psoas abscess (11) Hypothyroidism Assessment/Plan: resp status stable abx per ID - complete soon PEG - tolerates tube feeds continue Xarelto dc planning d/w RN Subjective ROS Limited/Unobtainable: Yes Constitutional: Denies: fever Allergies: Coded Allergies: No Known Allergies (Unverified , 01/18/19) Objective Last 24 Hour Vital Signs Date Time Temp Pulse Resp B/P (MAP) Pulse Ox O2 Delivery O2 Flow Rate FiO2 04/10/19 09:50 133/71 (91) 04/10/19 08:00 98.3 70 20 167/66 (99) 98 04/10/19 05:57 108 130/63 04/10/19 04:00 108 04/10/19 04:00 98.4 85 20 130/63 (85) 97 04/10/19 00:00 72 04/10/19 00:00 97.6 98 20 119/64 (82) 96 04/09/19 21:55 81 150/59 04/09/19 21:00 Nasal Cannula 2.0 Nasal Cannula 2.0 04/09/19 20:00 74 04/09/19 20:00 97.0 81 20 150/59 (89) 98 04/09/19 16:00 62 04/09/19 16:00 97.1 68 18 122/45 (70) 100 04/09/19 12:00 66 04/09/19 12:00 97.3 80 18 126/75 (92) 100 Intake and Output 04/09/19 04/10/19 19:00 07:00 Intake Total 60 ml 980 ml Output Total 1725 ml 1900 ml Balance -1665 ml -920 ml Intake Oral 120 ml Free Water 200 ml Tube Feeding 60 ml 660 ml Output Urine Total 1725 ml 1900 ml # Bowel Movements 1 1 Objective alert General Appearance: WD/WN, no acute distress Respiratory/Chest: lungs clear Cardiovascular: normal rate Laboratory Tests 04/10/19 07:00: Vancomycin Level Trough 19.0H Current Medications Medications (Trade) Dose Ordered Sig/Vaughn Route PRN Reason Start Time Stop Time Status Last Admin Dose Admin Acetaminophen (Tylenol) 650 mg Q4H PRN NG Mild Pain/Temp > 100.5 04/06/19 18:45 04/29/19 18:41 04/07/19 00:44 Ascorbic Acid (Vitamin C) 250 mg EVERY 12 HOURS NG 04/06/19 21:00 04/26/19 17:59 04/10/19 09:09 Chlorhexidine Gluconate (Michelle-Hex 2%) 1 applic DAILY@2000 TOPIC 04/06/19 20:00 05/03/19 19:59 04/09/19 21:55 Diltiazem HCl (Cardizem) 30 mg EVERY 8 HOURS GT 04/09/19 22:00 05/09/19 21:59 04/10/19 05:57 Furosemide (Lasix) 20 mg EVERY 12 HOURS NG 04/06/19 21:00 05/04/19 08:59 04/10/19 09:10 Levothyroxine Sodium (Synthroid) 100 mcg DAILY@0630 NG 04/07/19 06:30 04/30/19 06:29 04/10/19 05:57 Pantoprazole (Protonix) 40 mg DAILY IVP 04/07/19 09:00 04/26/19 08:59 04/10/19 09:09 Potassium Chloride (K-Dur) 20 meq DAILY ORAL 04/07/19 12:45 05/07/19 12:44 04/10/19 09:09 Sodium Hypochlorite (Dakin's Quarter Strength) 1 applic EVERY 12 HOURS TOPIC 04/06/19 21:00 04/27/19 00:00 04/09/19 21:55 Vancomycin HCl (Vanco rx to dose) 1 ea DAILY PRN MISC Per rx protocol 04/07/19 09:00 05/08/19 08:59 Vancomycin HCl 750 mg/Dextrose 275 ml @ 183.333 mls/hr Q24H IVPB 04/07/19 08:00 05/07/19 23:59 04/10/19 10:12 Zinc Sulfate (Zinc Sulfate) 220 mg DAILY NG 04/07/19 09:00 04/27/19 08:59 04/10/19 09:09 Barry Najera MD Apr 10, 2019 10:20
--- NOTE | 2019-04-10 10:21 | GI Progress Note ---
Assessment/Plan Problems: (1) GI bleed ICD Codes: K92.2 - Gastrointestinal hemorrhage, unspecified SNOMED: 84211511 (2) Anemia ICD Codes: D64.9 - Anemia, unspecified SNOMED: 120584882 (3) Respiratory distress ICD Codes: R06.03 - Acute respiratory distress SNOMED: 096981576 (4) Electrolyte abnormality ICD Codes: E87.8 - Other disorders of electrolyte and fluid balance, not elsewhere classified SNOMED: 252114871 Status: stable Status Narrative Discussed with Dr. Roche. Assessment/Plan SUMMARY OF FINDINGS: Gastritis, otherwise normal upper endoscopic examination. ST evaluation reviewed s/p PEG RECOMMENDATIONS: resume Xarelto per primary GTF per RD okay for oral gratification per ST electrolyte correction prn transfusions ppi pulm care The patient was seen and examined at bedside and all new and available data was reviewed in the patients chart. I agree with the above findings, impression and plan. (Patient seen earlier today. Signature stamp does not reflect patient encounter time.). - Sergei Roche MD Subjective Subjective limited Objective Last 24 Hour Vital Signs Date Time Temp Pulse Resp B/P (MAP) Pulse Ox O2 Delivery O2 Flow Rate FiO2 04/10/19 09:50 133/71 (91) 04/10/19 08:00 98.3 70 20 167/66 (99) 98 04/10/19 05:57 108 130/63 04/10/19 04:00 108 04/10/19 04:00 98.4 85 20 130/63 (85) 97 04/10/19 00:00 72 04/10/19 00:00 97.6 98 20 119/64 (82) 96 04/09/19 21:55 81 150/59 04/09/19 21:00 Nasal Cannula 2.0 Nasal Cannula 2.0 04/09/19 20:00 74 04/09/19 20:00 97.0 81 20 150/59 (89) 98 04/09/19 16:00 62 04/09/19 16:00 97.1 68 18 122/45 (70) 100 04/09/19 12:00 66 04/09/19 12:00 97.3 80 18 126/75 (92) 100 Intake and Output 04/09/19 04/10/19 19:00 07:00 Intake Total 60 ml 980 ml Output Total 1725 ml 1900 ml Balance -1665 ml -920 ml Intake Oral 120 ml Free Water 200 ml Tube Feeding 60 ml 660 ml Output Urine Total 1725 ml 1900 ml # Bowel Movements 1 1 Laboratory Tests Test 04/10/19 07:00 Vancomycin Level Trough 19.0 ug/mL (5.0-12.0) H Height (Feet): 6 Height (Inches): 6.00 Weight (Pounds): 188 Abdominal Exam: GT site - c/d/i Tahir Beavers NP Apr 10, 2019 10:21
--- NOTE | 2019-04-10 10:26 | NUR ---
NURSE NOTES: Received report and visited patient bedside with CELINE Lockett. Patient aox1 with calm, cooperative affect and spontaneous,clear but incoherent speech. Tube feed running and PICC line flushed, cdi dressing. VSS--rechecked BP when elevation noted and resolution noted--see flowsheets. Vanco started after checking with pharm relatged to vanco trough. Call rivers in reach adn ladd patent with clear yellow output. Cont'd with plan of care adn turned and positioned per protocol. Addendum: 04/10/19 at 1902 by Jostin Su RN 1pm: Stage 4 sacral dakins dressing changed and new optifoam on thoracic spinal bony prominence and heels checked. No signs of pain. Family at bedside. No BM . 5pm: Patient given cathflo per OCT for sluggish PICC, both lumens and lack of blood return. No blood return after 30mins. Called pharm at 540pm who advised the protocol was to let cathflo continue to instill for an additional 1.5 hours (until 7pm). Pharm advised that if at 7pm, still no blood return, then a second dose may be ordered. In attempts to get blood return , luer locks changed and arm positioning extended to optimize flow. Bed in lowest locked position. No sign of cardiac or respiratory distress. call rivers still in reach. cont'd with plan of care. Addendum: 04/10/19 at 1936 by Jostin Su RN 7pm: Red port blood return of 3mls, but no more. Purple port with no blood return still. Endorsed to romelia BERGER and called pharm.
--- NOTE | 2019-04-10 10:50 | Infectious Diseases Prog Note ---
"Assessment/Plan Assessment/Plan antibiotics : vancomycin iv A 1. MRSA sepsis 2. 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 MRSA pneumonia 4. respiratory failure resolved 5. leucocytosis improving 6. hypertension P 1. continue iv vancomycin 27 more days 2. cbc, bmp, vancomycin level q weekly 3. will follow up cultures Subjective ROS Limited/Unobtainable: Yes Allergies: Coded Allergies: No Known Allergies (Unverified , 01/18/19) Objective Vital Signs Last 24 Hour Vital Signs Date Time Temp Pulse Resp B/P (MAP) Pulse Ox O2 Delivery O2 Flow Rate FiO2 04/10/19 09:50 133/71 (91) 04/10/19 09:00 Nasal Cannula 2.0 Nasal Cannula 2.0 04/10/19 08:00 98.3 70 20 167/66 (99) 98 04/10/19 05:57 108 130/63 04/10/19 04:00 108 04/10/19 04:00 98.4 85 20 130/63 (85) 97 04/10/19 00:00 72 04/10/19 00:00 97.6 98 20 119/64 (82) 96 04/09/19 21:55 81 150/59 04/09/19 21:00 Nasal Cannula 2.0 Nasal Cannula 2.0 04/09/19 20:00 74 04/09/19 20:00 97.0 81 20 150/59 (89) 98 04/09/19 16:00 62 04/09/19 16:00 97.1 68 18 122/45 (70) 100 04/09/19 12:00 66 04/09/19 12:00 97.3 80 18 126/75 (92) 100 Height (Feet): 6 Height (Inches): 6.00 Weight (Pounds): 188 Respiratory/Chest: lungs clear Cardiovascular: normal rate, regular rhythm, no gallop/murmur Abdomen: soft, non tender, other - GT Extremities: no edema Laboratory Tests Test 04/10/19 07:00 Vancomycin Level Trough 19.0 ug/mL (5.0-12.0) H Current Medications Medications (Trade) Dose Ordered Sig/Vaughn Route PRN Reason Start Time Stop Time Status Last Admin Dose Admin Acetaminophen (Tylenol) 650 mg Q4H PRN NG Mild Pain/Temp > 100.5 04/06/19 18:45 04/29/19 18:41 04/07/19 00:44 Ascorbic Acid (Vitamin C) 250 mg EVERY 12 HOURS NG 04/06/19 21:00 04/26/19 17:59 04/10/19 09:09 Chlorhexidine Gluconate (Michelle-Hex 2%) 1 applic DAILY@1999 TOPIC 04/06/19 20:00 05/03/19 19:59 04/09/19 21:55 Diltiazem HCl (Cardizem) 30 mg EVERY 8 HOURS GT 04/09/19 22:00 05/09/19 21:59 04/10/19 05:57 Furosemide (Lasix) 20 mg EVERY 12 HOURS NG 04/06/19 21:00 05/04/19 08:59 04/10/19 09:10 Levothyroxine Sodium (Synthroid) 100 mcg DAILY@0630 NG 04/07/19 06:30 04/30/19 06:29 04/10/19 05:57 Pantoprazole (Protonix) 40 mg DAILY IVP 04/07/19 09:00 04/26/19 08:59 04/10/19 09:09 Potassium Chloride (K-Dur) 20 meq DAILY ORAL 04/07/19 12:45 05/07/19 12:44 04/10/19 09:09 Sodium Hypochlorite (Dakin's Quarter Strength) 1 applic EVERY 12 HOURS TOPIC 04/06/19 21:00 04/27/19 00:00 04/09/19 21:55 Vancomycin HCl (Vanco rx to dose) 1 ea DAILY PRN MISC Per rx protocol 04/07/19 09:00 05/08/19 08:59 Vancomycin HCl 750 mg/Dextrose 275 ml @ 183.333 mls/hr Q24H IVPB 04/07/19 08:00 05/07/19 23:59 04/10/19 10:12 Zinc Sulfate (Zinc Sulfate) 220 mg DAILY NG 04/07/19 09:00 04/27/19 08:59 04/10/19 09:09 Ambrocio Lemon MD Apr 10, 2019 10:50"
--- NOTE | 2019-04-10 12:20 | Cardiac Electrophysiology PN ---
Assessment/Plan Assessment/Plan 1. S/P Septic shock. Blood Cx positive for GP cocci. On IV antibiotics. EF 60 to 65 percent with mild diastolic dysfunction. 2. Atrial fib with RVR 130s . Added Cardizem 30 tid yesterday. On Xarelto 3. S/P Respiratory failure, likely due to pneumonia. On broad-spectrum IV antibiotics. 4. Mild diastolic dysfunction with elevated BNP. 5. History of PE. On Xarelto [address] Oakley and Dr Najera 6. UTI. 7. Dysphagia, S/P PEG DW RN Subjective Subjective Had atrial fib with CVR 04/07/19 and RVR 130s 04/09/19. PEG feeding going on. Objective Last 24 Hour Vital Signs Date Time Temp Pulse Resp B/P (MAP) Pulse Ox O2 Delivery O2 Flow Rate FiO2 04/10/19 09:50 133/71 (91) 04/10/19 09:00 Nasal Cannula 2.0 Nasal Cannula 2.0 04/10/19 08:04 96 Nasal Cannula 2.0 32 04/10/19 08:00 63 04/10/19 08:00 98.3 70 20 167/66 (99) 98 04/10/19 05:57 108 130/63 04/10/19 04:00 108 04/10/19 04:00 98.4 85 20 130/63 (85) 97 04/10/19 00:00 72 04/10/19 00:00 97.6 98 20 119/64 (82) 96 04/09/19 21:55 81 150/59 04/09/19 21:00 Nasal Cannula 2.0 Nasal Cannula 2.0 04/09/19 20:00 74 04/09/19 20:00 97.0 81 20 150/59 (89) 98 04/09/19 16:00 62 04/09/19 16:00 97.1 68 18 122/45 (70) 100 Intake and Output 04/09/19 04/10/19 19:00 07:00 Intake Total 60 ml 980 ml Output Total 1725 ml 1900 ml Balance -1665 ml -920 ml Intake Oral 120 ml Free Water 200 ml Tube Feeding 60 ml 660 ml Output Urine Total 1725 ml 1900 ml # Bowel Movements 1 1 Laboratory Tests Test 04/10/19 07:00 Vancomycin Level Trough 19.0 ug/mL (5.0-12.0) H Objective HEAD AND NECK: No JVD LUNGS: Coarse rhonchi. CARDIOVASCULAR: Regular S1 and S2 with no gallop or murmur. ABDOMEN: Soft. PEG in place EXTREMITIES: No pitting edema. Christian Vargas MD Apr 10, 2019 12:20
[2019-04-10] MEDS: Dakin's 0.125% Soln (Quarter Strength) 16oz TOPIC SCH ×2 (13:23→21:21)
--- NOTE | 2019-04-10 13:53 | Surgery Progress Note ---
Surgery Progress Note Subjective Additional Comments jorge cute events Objective Last 24 Hour Vital Signs Date Time Temp Pulse Resp B/P (MAP) Pulse Ox O2 Delivery O2 Flow Rate FiO2 04/10/19 09:50 133/71 (91) 04/10/19 09:00 Nasal Cannula 2.0 Nasal Cannula 2.0 04/10/19 08:04 96 Nasal Cannula 2.0 32 04/10/19 08:00 63 04/10/19 08:00 98.3 70 20 167/66 (99) 98 04/10/19 05:57 108 130/63 04/10/19 04:00 108 04/10/19 04:00 98.4 85 20 130/63 (85) 97 04/10/19 00:00 72 04/10/19 00:00 97.6 98 20 119/64 (82) 96 04/09/19 21:55 81 150/59 04/09/19 21:00 Nasal Cannula 2.0 Nasal Cannula 2.0 04/09/19 20:00 74 04/09/19 20:00 97.0 81 20 150/59 (89) 98 04/09/19 16:00 62 04/09/19 16:00 97.1 68 18 122/45 (70) 100 I&O Intake and Output 04/09/19 04/10/19 19:00 07:00 Intake Total 60 ml 980 ml Output Total 1725 ml 1900 ml Balance -1665 ml -920 ml Intake Oral 120 ml Free Water 200 ml Tube Feeding 60 ml 660 ml Output Urine Total 1725 ml 1900 ml # Bowel Movements 1 1 Dressing: dry, other Wound: other Cardiovascular: RSR, other Respiratory: decreased breath sounds Abdomen: soft, present bowel sounds, other, non-distended Extremities: no cyanosis Laboratory Tests Test 04/10/19 07:00 Vancomycin Level Trough 19.0 ug/mL (5.0-12.0) H Plan Problems: (1) Respiratory distress (2) Decubitus skin ulcer Assessment & Plan: Pt presented on admission with multiple pressure injuries and ulcerations 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 Base of wound has mixed slough and necrosis. Edges adherent and dark . Periwound indurated with darker skin tone. Pt complained of pain when minimally palpated. Mild odor noted Full thickness ulcer R tibia. Base of wound has slough. Edges adherent and flat ,Periwound without erythema or fluctuance. Stable dry eschar noted to R hallux. edges are dark but adherent to base of wound. Periwound dark without erythema or fluctuance Stable dry eschar noted to R st metatarsal head. Periwound pale without fluctuance Stable dry eschar noted to dorsal aspects of R 3rd and 4th metatarsals. Full thickness ulcer lateral R 5th metatarsal. base of wound with some areas of necrosis and edges are black . No odor or exudate noted Stable dry eschar R heel . Periwound fluctuant without erythema. Pt complained of pain when minimally palpated. Stable dry eschar noted to dorso/flexor L foot. Periwound without erythema , induration or fluctuance Reabsorbing blood blister noted to medial L foot. Periwound without erythema or fluctuance L heel is dry and blanchable with historical scarring from previous wounds .Dry flaky skin noted to both feet. Tx.Plan: Cleanse sacral wound with Dakin's 0.125% stefani. Loose pack wound with Dakin's moist Kerlix. Apply Moisture Barrier paste to borders and cover with Optifoam drsg. Twice daily and prn. Cleanse Wound R tibia with Saline. Apply Therahoney. Cover with Optifoam drsg. Change every 3 days and prn.Apply Cavilon Skin BArrier to both heels. Cover each heel with Optifoam drsg. change every 7 days and prn APM/PHIL mattress overlay. Reposition at least every 2hours or as tolerated. Off-load heels with pillow. (3) Severe sepsis Assessment & Plan: leukocytosis resolved anemia lactic acidosis resolved improving septic MRSA bacteremia labs noted imaging noted Cont IV abx as per ID feeds wounds evaluated and care plan as above labs noted f/u cxr will follow with recs thank you DAILY ESTIMATED NEEDS: Needs based on Wound, critical care 78.6kg 25-30 kcals/kg 1697-2052 total kcals 1.25-2 g protein/kg 98-157 g total protein Fluid per MD, on lasix NUTRITION DIAGNOSIS: 1) Increased kcal/ pro needs r/t wound healing as evidenced by full thickness sacral wound, pending updated eval. 2) Swallowing difficulty r/t respiratory status as evidenced by s/p RR, pt now orally intubated, on pressor support. CURRENT DIET: Regular-> pt now intubated ENTERAL NUTRITION RECOMMENDATIONS: Osmolite 1.5 @55ml/hr x24 hrs + Prosource BID to provide 1320ml, 1980 kcal, 83g + 22g pro, 1006ml free H2O - WHEN HEMODYNAMICALLY STABLE, rec to obtain GI access, initiate non oral feeds to meed est nutritional needs - Start Osmolite 1.5 @25ml/hr for 6 hrs, advance as tolerated 10ml/hr q4-6 hrs to goal. - Flush per MD/ HOB over 30 degrees ADDITIONAL RECOMMENDATIONS: 1) Obtain a CALIBRATED bed wt 2) Feed w/ hemodynamic stability -> currently on pressors x2 3) WOUND CARE: Add BRUCE BID w/ GI access Add VIT C 250mg BID Add ZnSO4 220mg daily x10 days 4) On lasix, monitor lytes daily 5) DYE RANGE FEEDER eval upon extubation (4) Dyspnea (5) Hypoxia Tawanda Alfaro Apr 10, 2019 13:53
--- NOTE | 2019-04-10 19:00 | NUR ---
NURSE NOTES: Received pt from CELINE Bell alert and oriented x1 to name only. PICC Line assessed, blood flow sluggish on red port, unable to obtain blood flow from purple port. Per [facility] pharmacist, protocol will require another dosage of Cathflo on both ports. Gtube feed tolerated - no s/s of abdominal pain or distention, HOB elevated, no gastric residual noted. Aspiraiton precautions implemented. Jose catheter patent and draining to clear and yellow urine. Bed in lowest position, call light and belongings within reach.
--- NOTE | 2019-04-10 19:30 | Hematology/Onc Progress Note ---
Assessment/Plan Assessment/Plan Assessment and Recs: # Anemia of chronic disease, multifactorial, and gi bleed --> hold off on iron or epo at this time --> anemia panel has been reviewed --> hgb trend 9.6-->8.3-->6.5-->8.1-->8.7-->6.8-->8.1-->7.6-->7.9-->8-->7.8-->8 --> no evidence of hemolysis --> occult blood +++ gi eval prn --> transfuse if hgb <7 --> s/p blood tx: 03/31 --> on xarelto, has been started # Lung mass (2.5 x 2.3 x 1.8 cm right apical masslike opacity) with smaller adjacent similar smaller opacities. Favor scarring, but the possibility of neoplasm cannot be ruled out. 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, r/o mets --> patient is on pressors so hold off on diagnosis until more stable --> at some point will need a tissue diagnosis, as well as further w/u --> given advanced age, hold off on any extensive immediate care --> on xarelto at this time--> Once peg placed,can restart xarelto # DVT + Pulmonary embolism history could be related to mass/malignancy * HYPERCOAGULABLE DISORDER* --> remains on xarelto --> d/w cards # Thrombocytopenia likely due to infection --> currently improved --> trend 203-->124-->121-->100k-->121k-->179k-->274-->345-->401-->400 --> smear reviewed and no schistocytes noted --> ok for ppi # Leukocytosis is 2/2 septic shock with uti --> has been started on abx (vanc/zosyn) --> further w/u for altered mental status --> wbc 14-->19.7-->21-->9.6-->9.3-->7.2-->10.8 # Iron Overload --> Ferrtin 1327 continue to monitor consider chelation therapy prior to blood tx. --> on iv iron # Renal insufficiency --> as per renal recs # Respiratory failure --> sbp per pulm --> extubated 04/03 --> currently on nc # Hypotension on fluids now better --> abx and pressors # DVT ppx -> ok for xarelto The timing of this note does not necessarily reflect the time of the patient was seen. GREATLY APPRECIATE CONSULTATION. Subjective Constitutional: Denies: no symptoms, chills, fever, malaise, weakness, other HEENT: Denies: no symptoms, eye pain, blurred vision, tearing, double vision, ear pain, ear discharge, nose pain, nose congestion, throat pain, throat swelling, mouth pain, mouth swelling, other Respiratory: Denies: no symptoms, cough, shortness of breath, SOB with excertion, SOB at rest, sputum, wheezing, other Gastrointestinal/Abdominal: Denies: no symptoms, abdomen distended, abdominal pain, black stools, tarry stools, blood in stool, constipated, diarrhea, difficulty swallowing, nausea, poor appetite, poor fluid intake, rectal bleeding , vomiting, other Genitourinary: Denies: no symptoms, burning, discharge, frequency, flank pain, hematuria, incontinence, pain, urgency, other Neurologic/Psychiatric: Denies: no symptoms, anxiety, depressed, emotional problems, headache, numbness, paresthesia, pre-existing deficit, seizure, tingling, tremors, weakness, other Endocrine: Denies: no symptoms, excessive sweating, flushing, intolerance to cold, intolerance to heat, increased hunger, increased thirst, increased urine, unexplained weight gain, unexplained weight loss, other Hematologic/Lymphatic: Denies: no symptoms, anemia, easy bleeding, easy bruising, adenopathy, other Allergies: Coded Allergies: No Known Allergies (Unverified , 01/18/19) Subjective 03/28: labs have been reviewed, hgb is less than 7, hgb 6.5, and prbc that has been ordered 03/29: in icu, on abx, no signs of distress, blood tx completed, labs reviewed 03/30: hgb is better, remains in the icu, on pressors levo, otherwise gtf started 03/31: icu, hgb 6.8, blood tx ordered, on rivaroxaban, vent, ng 04/02: on ng/vent, remains in the icu, recovering well s/p transfu, rivaroxaban continued 04/03: on xarelto, is off of midronine given low hr 04/04: s/p extubation, on nc, antrum biop negative for malignant cells, peg planning 04/05: for peg, off xarelto, family agreed, no bleeding 04/06: on abx, vs stable, no fever or chills, no distress 04/07: vs stable, no f/c, peg feeding, denies pain. 04/08: generally would not object to the use of noac, will dw cards 04/10: no events, remains on xarelto, has been started Objective Objective Current Medications Medications (Trade) Dose Ordered Sig/Vaughn Route PRN Reason Start Time Stop Time Status Last Admin Dose Admin Acetaminophen (Tylenol) 650 mg Q4H PRN NG Mild Pain/Temp > 100.5 04/06/19 18:45 04/29/19 18:41 04/07/19 00:44 Ascorbic Acid (Vitamin C) 250 mg EVERY 12 HOURS NG 04/06/19 21:00 04/26/19 17:59 04/10/19 09:09 Chlorhexidine Gluconate (Michelle-Hex 2%) 1 applic DAILY@1999 TOPIC 04/06/19 20:00 05/03/19 19:59 04/09/19 21:55 Diltiazem HCl (Cardizem) 30 mg EVERY 8 HOURS GT 04/09/19 22:00 05/09/19 21:59 04/10/19 16:19 Furosemide (Lasix) 20 mg EVERY 12 HOURS NG 04/06/19 21:00 05/04/19 08:59 04/10/19 09:10 Levothyroxine Sodium (Synthroid) 100 mcg DAILY@0630 NG 04/07/19 06:30 04/30/19 06:29 04/10/19 05:57 Pantoprazole (Protonix) 40 mg DAILY IVP 04/07/19 09:00 04/26/19 08:59 04/10/19 09:09 Potassium Chloride (K-Dur) 20 meq DAILY ORAL 04/07/19 12:45 05/07/19 12:44 04/10/19 09:09 Sodium Hypochlorite (Dakin's Quarter Strength) 1 applic EVERY 12 HOURS TOPIC 04/06/19 21:00 04/27/19 00:00 04/10/19 13:23 Vancomycin HCl (Vanco rx to dose) 1 ea DAILY PRN MISC Per rx protocol 04/07/19 09:00 05/08/19 08:59 Vancomycin HCl 750 mg/Dextrose 275 ml @ 183.333 mls/hr Q24H IVPB 04/07/19 08:00 05/07/19 23:59 04/10/19 10:12 Zinc Sulfate (Zinc Sulfate) 220 mg DAILY NG 04/07/19 09:00 04/27/19 08:59 04/10/19 09:09 Last 24 Hour Vital Signs Date Time Temp Pulse Resp B/P (MAP) Pulse Ox O2 Delivery O2 Flow Rate FiO2 04/10/19 16:45 67 156/55 (88) 04/10/19 16:19 82 170/65 04/10/19 16:00 97.2 75 18 170/71 (104) 100 04/10/19 16:00 64 04/10/19 12:00 97.2 80 173/72 (105) 100 04/10/19 12:00 75 04/10/19 09:50 133/71 (91) 04/10/19 09:00 Nasal Cannula 2.0 Nasal Cannula 2.0 04/10/19 08:04 96 Nasal Cannula 2.0 32 04/10/19 08:00 63 04/10/19 08:00 98.3 70 20 167/66 (99) 98 04/10/19 05:57 108 130/63 04/10/19 04:00 108 04/10/19 04:00 98.4 85 20 130/63 (85) 97 04/10/19 00:00 72 04/10/19 00:00 97.6 98 20 119/64 (82) 96 04/09/19 21:55 81 150/59 04/09/19 21:00 Nasal Cannula 2.0 Nasal Cannula 2.0 04/09/19 20:00 74 04/09/19 20:00 97.0 81 20 150/59 (89) 98 04/09/19 16:00 62 04/09/19 16:00 97.1 68 18 122/45 (70) 100 04/09/19 12:00 66 04/09/19 12:00 97.3 80 18 126/75 (92) 100 04/09/19 09:00 Nasal Cannula 2.0 Nasal Cannula 2.0 04/09/19 08:00 96.8 77 18 141/74 (96) 100 04/09/19 08:00 67 04/09/19 04:00 97.2 75 18 143/67 (92) 98 04/09/19 04:00 82 04/09/19 00:30 68 132/57 (82) 04/09/19 00:00 59 04/09/19 00:00 96.8 76 18 167/81 (109) 100 04/08/19 23:41 Nasal Cannula 2.0 Nasal Cannula 2.0 04/08/19 20:00 73 04/08/19 20:00 97.2 74 18 153/74 (100) 100 04/08/19 19:58 Nasal Cannula 2.0 Nasal Cannula 2.0 Intake and Output 04/09/19 04/10/19 19:00 07:00 Intake Total 60 ml 980 ml Output Total 1725 ml 1900 ml Balance -1665 ml -920 ml Intake Oral 120 ml Free Water 200 ml Tube Feeding 60 ml 660 ml Output Urine Total 1725 ml 1900 ml # Bowel Movements 1 1 Labs Test 04/08/19 04:30 04/08/19 04:35 04/09/19 09:30 04/10/19 07:00 White Blood Count 9.6 K/UL (4.8-10.8) 7.6 K/UL (4.8-10.8) Red Blood Count 2.82 M/UL (4.70-6.10) 2.86 M/UL (4.70-6.10) Hemoglobin 8.0 G/DL (14.2-18.0) 8.0 G/DL (14.2-18.0) Hematocrit 25.6 % (42.0-52.0) 26.0 % (42.0-52.0) Mean Corpuscular Volume 91 FL (80-99) 91 FL (80-99) Mean Corpuscular Hemoglobin 28.4 PG (27.0-31.0) 28.1 PG (27.0-31.0) Mean Corpuscular Hemoglobin Concent 31.3 G/DL (32.0-36.0) 31.0 G/DL (32.0-36.0) Red Cell Distribution Width 15.8 % (11.6-14.8) 15.2 % (11.6-14.8) Platelet Count 446 K/UL (150-450) 451 K/UL (150-450) Mean Platelet Volume 5.0 FL (6.5-10.1) 4.9 FL (6.5-10.1) Neutrophils (%) (Auto) 68.6 % (45.0-75.0) 67.3 % (45.0-75.0) Lymphocytes (%) (Auto) 25.6 % (20.0-45.0) 22.0 % (20.0-45.0) Monocytes (%) (Auto) 4.8 % (1.0-10.0) 7.9 % (1.0-10.0) Eosinophils (%) (Auto) 0.6 % (0.0-3.0) 2.4 % (0.0-3.0) Basophils (%) (Auto) 0.4 % (0.0-2.0) 0.5 % (0.0-2.0) Sodium Level 138 MMOL/L (136-145) 138 MMOL/L (136-145) Potassium Level 3.4 MMOL/L (3.5-5.1) 3.7 MMOL/L (3.5-5.1) Chloride Level 105 MMOL/L (98-107) 103 MMOL/L (98-107) Carbon Dioxide Level 30 MMOL/L (21-32) 33 MMOL/L (21-32) Anion Gap 3 mmol/L (5-15) 2 mmol/L (5-15) Blood Urea Nitrogen 6 mg/dL (7-18) 8 mg/dL (7-18) Creatinine 0.9 MG/DL (0.55-1.30) 0.8 MG/DL (0.55-1.30) Estimat Glomerular Filtration Rate mL/min (>60) mL/min (>60) Glucose Level 133 MG/DL (74-106) 132 MG/DL (74-106) Calcium Level 8.1 MG/DL (8.5-10.1) 8.2 MG/DL (8.5-10.1) Phosphorus Level 2.1 MG/DL (2.5-4.9) Magnesium Level 1.4 MG/DL (1.8-2.4) 1.6 MG/DL (1.8-2.4) Ferritin 553 NG/ML (8-388) Vancomycin Level Trough 19.0 ug/mL (5.0-12.0) Height (Feet): 6 Height (Inches): 6.00 Weight (Pounds): 188 Objective PE General: severe distress, chronically Ill ENT: moist mucus membranes, ng++ Neck: limited range of motion Respiratory: respiratory distress, rhonch, extubated, nc++ Cardiovascular: RRr, no mgr Gastrointestinal: normal inspection, soft ++ peg Msk: normal inspection Neuro: responsive, motor weakness Skin: no rash Jake Womack MD Apr 10, 2019 19:30
--- NOTE | 2019-04-10 20:58 | Hematology/Onc Progress Note ---
Assessment/Plan Assessment/Plan LATE ENTRY NOTE 04/09/2019 Assessment/Plan Assessment and Recs: # Anemia of chronic disease, multifactorial, and gi bleed --> hold off on iron or epo at this time --> anemia panel has been reviewed --> hgb trend 9.6-->8.3-->6.5-->8.1-->8.7-->6.8-->8.1-->7.6-->7.9-->8-->7.8-->8 --> no evidence of hemolysis --> occult blood +++ gi eval prn --> transfuse if hgb <7 --> s/p blood tx: 03/31 --> on xarelto, has been started # Lung mass (2.5 x 2.3 x 1.8 cm right apical masslike opacity) with smaller adjacent similar smaller opacities. Favor scarring, but the possibility of neoplasm cannot be ruled out. 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 --> d/w cards # Thrombocytopenia likely due to infection --> currently improved --> trend 203-->124-->121-->100k-->121k-->179k-->274-->345-->401-->400 --> smear reviewed and no schistocytes noted --> ok for ppi # Leukocytosis is 2/2 septic shock with uti --> has been started on abx (vanc/zosyn) --> further w/u for altered mental status --> wbc 14-->19.7-->21-->9.6-->9.3-->7.2-->10.8 # Iron Overload --> Ferrtin 1327 continue to monitor consider chelation therapy prior to blood tx. --> on iv iron # Renal insufficiency --> as per renal recs # Respiratory failure --> sbp per pulm --> extubated 04/03 --> currently on nc # Hypotension on fluids now better --> abx and pressors # DVT ppx -> ok for xarelto The timing of this note does not necessarily reflect the time of the patient was seen. GREATLY APPRECIATE CONSULTATION. Subjective Allergies: Coded Allergies: No Known Allergies (Unverified , 01/18/19) Subjective Subjective 03/28: labs have been reviewed, hgb is less than 7, hgb 6.5, and prbc that has been ordered 03/29: in icu, on abx, no signs of distress, blood tx completed, labs reviewed 03/30: hgb is better, remains in the icu, on pressors levo, otherwise gtf started 03/31: icu, hgb 6.8, blood tx ordered, on rivaroxaban, vent, ng 04/02: on ng/vent, remains in the icu, recovering well s/p transfu, rivaroxaban continued 04/03: on xarelto, is off of midronine given low hr 04/04: s/p extubation, on nc, antrum biop negative for malignant cells, peg planning 04/05: for peg, off xarelto, family agreed, no bleeding 04/06: on abx, vs stable, no fever or chills, no distress 04/07: vs stable, no f/c, peg feeding, denies pain. 04/08: generally would not object to the use of noac, will dw cards 04/09: no acute events reported, no bleeding noted. Objective Objective Current Medications Medications (Trade) Dose Ordered Sig/Vaughn Route PRN Reason Start Time Stop Time Status Last Admin Dose Admin Acetaminophen (Tylenol) 650 mg Q4H PRN NG Mild Pain/Temp > 100.5 04/06/19 18:45 04/29/19 18:41 04/07/19 00:44 Ascorbic Acid (Vitamin C) 250 mg EVERY 12 HOURS NG 04/06/19 21:00 04/26/19 17:59 04/10/19 09:09 Chlorhexidine Gluconate (Michelle-Hex 2%) 1 applic DAILY@1999 TOPIC 04/06/19 20:00 05/03/19 19:59 04/09/19 21:55 Diltiazem HCl (Cardizem) 30 mg EVERY 8 HOURS GT 04/09/19 22:00 05/09/19 21:59 04/10/19 16:19 Furosemide (Lasix) 20 mg EVERY 12 HOURS NG 04/06/19 21:00 05/04/19 08:59 04/10/19 09:10 Levothyroxine Sodium (Synthroid) 100 mcg DAILY@0630 NG 04/07/19 06:30 04/30/19 06:29 04/10/19 05:57 Pantoprazole (Protonix) 40 mg DAILY IVP 04/07/19 09:00 04/26/19 08:59 04/10/19 09:09 Potassium Chloride (K-Dur) 20 meq DAILY ORAL 04/07/19 12:45 05/07/19 12:44 04/10/19 09:09 Sodium Hypochlorite (Dakin's Quarter Strength) 1 applic EVERY 12 HOURS TOPIC 04/06/19 21:00 04/27/19 00:00 04/10/19 13:23 Vancomycin HCl (Vanco rx to dose) 1 ea DAILY PRN MISC Per rx protocol 04/07/19 09:00 05/08/19 08:59 Vancomycin HCl 750 mg/Dextrose 275 ml @ 183.333 mls/hr Q24H IVPB 04/07/19 08:00 05/07/19 23:59 04/10/19 10:12 Zinc Sulfate (Zinc Sulfate) 220 mg DAILY NG 04/07/19 09:00 04/27/19 08:59 04/10/19 09:09 Last 24 Hour Vital Signs Date Time Temp Pulse Resp B/P (MAP) Pulse Ox O2 Delivery O2 Flow Rate FiO2 04/10/19 20:00 97.6 85 18 151/75 (100) 99 04/10/19 16:45 67 156/55 (88) 04/10/19 16:19 82 170/65 04/10/19 16:00 97.2 75 18 170/71 (104) 100 04/10/19 16:00 64 04/10/19 12:00 97.2 80 173/72 (105) 100 04/10/19 12:00 75 04/10/19 09:50 133/71 (91) 04/10/19 09:00 Nasal Cannula 2.0 Nasal Cannula 2.0 04/10/19 08:04 96 Nasal Cannula 2.0 32 04/10/19 08:00 63 04/10/19 08:00 98.3 70 20 167/66 (99) 98 04/10/19 05:57 108 130/63 04/10/19 04:00 108 04/10/19 04:00 98.4 85 20 130/63 (85) 97 04/10/19 00:00 72 04/10/19 00:00 97.6 98 20 119/64 (82) 96 04/09/19 21:55 81 150/59 04/09/19 21:00 Nasal Cannula 2.0 Nasal Cannula 2.0 04/09/19 20:00 74 04/09/19 20:00 97.0 81 20 150/59 (89) 98 04/09/19 16:00 62 04/09/19 16:00 97.1 68 18 122/45 (70) 100 04/09/19 12:00 66 04/09/19 12:00 97.3 80 18 126/75 (92) 100 04/09/19 09:00 Nasal Cannula 2.0 Nasal Cannula 2.0 04/09/19 08:00 96.8 77 18 141/74 (96) 100 04/09/19 08:00 67 04/09/19 04:00 97.2 75 18 143/67 (92) 98 04/09/19 04:00 82 04/09/19 00:30 68 132/57 (82) 04/09/19 00:00 59 04/09/19 00:00 96.8 76 18 167/81 (109) 100 04/08/19 23:41 Nasal Cannula 2.0 Nasal Cannula 2.0 Intake and Output 04/09/19 04/10/19 19:00 07:00 Intake Total 60 ml 980 ml Output Total 1725 ml 1900 ml Balance -1665 ml -920 ml Intake Oral 120 ml Free Water 200 ml Tube Feeding 60 ml 660 ml Output Urine Total 1725 ml 1900 ml # Bowel Movements 1 1 Labs Test 04/08/19 04:30 04/08/19 04:35 04/09/19 09:30 04/10/19 07:00 White Blood Count 9.6 K/UL (4.8-10.8) 7.6 K/UL (4.8-10.8) Red Blood Count 2.82 M/UL (4.70-6.10) 2.86 M/UL (4.70-6.10) Hemoglobin 8.0 G/DL (14.2-18.0) 8.0 G/DL (14.2-18.0) Hematocrit 25.6 % (42.0-52.0) 26.0 % (42.0-52.0) Mean Corpuscular Volume 91 FL (80-99) 91 FL (80-99) Mean Corpuscular Hemoglobin 28.4 PG (27.0-31.0) 28.1 PG (27.0-31.0) Mean Corpuscular Hemoglobin Concent 31.3 G/DL (32.0-36.0) 31.0 G/DL (32.0-36.0) Red Cell Distribution Width 15.8 % (11.6-14.8) 15.2 % (11.6-14.8) Platelet Count 446 K/UL (150-450) 451 K/UL (150-450) Mean Platelet Volume 5.0 FL (6.5-10.1) 4.9 FL (6.5-10.1) Neutrophils (%) (Auto) 68.6 % (45.0-75.0) 67.3 % (45.0-75.0) Lymphocytes (%) (Auto) 25.6 % (20.0-45.0) 22.0 % (20.0-45.0) Monocytes (%) (Auto) 4.8 % (1.0-10.0) 7.9 % (1.0-10.0) Eosinophils (%) (Auto) 0.6 % (0.0-3.0) 2.4 % (0.0-3.0) Basophils (%) (Auto) 0.4 % (0.0-2.0) 0.5 % (0.0-2.0) Sodium Level 138 MMOL/L (136-145) 138 MMOL/L (136-145) Potassium Level 3.4 MMOL/L (3.5-5.1) 3.7 MMOL/L (3.5-5.1) Chloride Level 105 MMOL/L (98-107) 103 MMOL/L (98-107) Carbon Dioxide Level 30 MMOL/L (21-32) 33 MMOL/L (21-32) Anion Gap 3 mmol/L (5-15) 2 mmol/L (5-15) Blood Urea Nitrogen 6 mg/dL (7-18) 8 mg/dL (7-18) Creatinine 0.9 MG/DL (0.55-1.30) 0.8 MG/DL (0.55-1.30) Estimat Glomerular Filtration Rate mL/min (>60) mL/min (>60) Glucose Level 133 MG/DL (74-106) 132 MG/DL (74-106) Calcium Level 8.1 MG/DL (8.5-10.1) 8.2 MG/DL (8.5-10.1) Phosphorus Level 2.1 MG/DL (2.5-4.9) Magnesium Level 1.4 MG/DL (1.8-2.4) 1.6 MG/DL (1.8-2.4) Ferritin 553 NG/ML (8-388) Vancomycin Level Trough 19.0 ug/mL (5.0-12.0) Height (Feet): 6 Height (Inches): 6.00 Weight (Pounds): 188 Objective PE General: NAD, chronically Ill ENT: moist mucus membranes, ng++ Neck: limited range of motion Respiratory: respiratory distress, rhonch, extubated, nc++ Cardiovascular: RRr, no mgr Gastrointestinal: normal inspection, soft ++ peg Msk: normal inspection Neuro: responsive, motor weakness Skin: no rash Alma Mackay NP Apr 10, 2019 20:58
[2019-04-10] MEDS: Dyna-Hex 2% Top Sol 2oz TOPIC SCH (21:21)
[2019-04-11] VITALS: BP 146/66
--- NOTE | 2019-04-11 00:15 | NUR ---
NURSE NOTES: Assessed PICC Line - able to flush and draw back blood on both ports after 2nd Cathflo administration.
[2019-04-11 04:00] VITALS: BP 147/80
[2019-04-11] MEDS: dilTIAZem HCl 30mg tab GT SCH ×2 (06:25→12:55)
[2019-04-11 07:31] LABS: BASOPHILS % (AUTO) 0.5 % (0.0-2.0); EOSINOPHILS % (AUTO) 2.2 % (0.0-3.0); HEMATOCRIT 26.7 % (42.0-52.0); HEMOGLOBIN 8.2 G/DL (14.2-18.0); MEAN CORPUSCULAR VOLUME 90 FL (80-99); MONOCYTES % (AUTO) 8.7 % (1.0-10.0); NEUTROPHILS % (AUTO) 59.5 % (45.0-75.0); PLATELET COUNT 494 K/UL (150-450); RED BLOOD COUNT 2.95 M/UL (4.70-6.10); RED CELL DISTRIBUTION WIDTH 15.5 % (11.6-14.8); WHITE BLOOD COUNT 8.3 K/UL (4.8-10.8)
[2019-04-11 07:47] LABS: ANION GAP 5 mmol/L (5-15); BLOOD UREA NITROGEN 10 mg/dL (7-18); CALCIUM 8.8 MG/DL (8.5-10.1); CARBON DIOXIDE 33 MMOL/L (21-32); CHLORIDE 102 MMOL/L (98-107); CREATININE 0.8 MG/DL (0.55-1.30); PHOSPHORUS 1.5 MG/DL (2.5-4.9); SODIUM 140 MMOL/L (136-145)
[2019-04-11 08:12] VITALS: BP 162/58
--- NOTE | 2019-04-11 09:00 | General Progress Note ---
Assessment/Plan Problem List: (1) GI bleed ICD Codes: K92.2 - Gastrointestinal hemorrhage, unspecified SNOMED: 40172991 (2) Anemia ICD Codes: D64.9 - Anemia, unspecified SNOMED: 629604000 (3) Lung mass ICD Codes: R91.8 - Other nonspecific abnormal finding of lung field SNOMED: 620857827 (4) Decubitus skin ulcer ICD Codes: L89.90 - Pressure ulcer of unspecified site, unspecified stage SNOMED: 747631334 (5) Hypothyroidism ICD Codes: E03.9 - Hypothyroidism, unspecified SNOMED: 13282342 Status: stable Assessment/Plan: (1) GI bleed ICD Codes: K92.2 - Gastrointestinal hemorrhage, unspecified SNOMED: 01422577 (2) Anemia ICD Codes: D64.9 - Anemia, unspecified SNOMED: 054446078 (3) Respiratory distress ICD Codes: R06.03 - Acute respiratory distress SNOMED: 892680860 (4) Electrolyte abnormality ICD Codes: E87.8 - Other disorders of electrolyte and fluid balance, not elsewhere classified SNOMED: 832355098 Status: unchanged SUMMARY OF FINDINGS: Gastritis, otherwise normal upper endoscopic examination. ST evaluation reviewed s/p PEG RECOMMENDATIONS: resume Xarelto per primary GTF per RD okay for oral gratification per ST>> he eats minimally electrolyte correction prn transfusions ppi pulm care Subjective ROS Limited/Unobtainable: No Allergies: Coded Allergies: No Known Allergies (Unverified , 01/18/19) Objective Last 24 Hour Vital Signs Date Time Temp Pulse Resp B/P (MAP) Pulse Ox O2 Delivery O2 Flow Rate FiO2 04/11/19 08:12 78 162/58 (92) 04/11/19 06:25 100 147/80 04/11/19 04:00 100 04/11/19 04:00 97.5 95 19 147/80 (102) 98 04/11/19 00:00 67 04/11/19 00:00 97.6 76 18 146/66 (92) 96 04/10/19 21:21 85 151/75 04/10/19 21:00 Nasal Cannula 2.0 Nasal Cannula 2.0 04/10/19 20:00 83 04/10/19 20:00 97.6 85 18 151/75 (100) 99 04/10/19 16:45 67 156/55 (88) 04/10/19 16:19 82 170/65 04/10/19 16:00 97.2 75 18 170/71 (104) 100 04/10/19 16:00 64 04/10/19 12:00 97.2 80 173/72 (105) 100 04/10/19 12:00 75 04/10/19 09:50 133/71 (91) 04/10/19 09:00 Nasal Cannula 2.0 Nasal Cannula 2.0 Intake and Output 04/10/19 04/11/19 19:00 07:00 Intake Total 160 ml 860 ml Output Total 1800 ml 2000 ml Balance -1640 ml -1140 ml Intake Oral 100 ml Free Water 0 ml 200 ml Tube Feeding 60 ml 660 ml Output Urine Total 1800 ml 2000 ml Laboratory Tests 04/11/19 06:58: White Blood Count 8.3, Red Blood Count 2.95L, Hemoglobin 8.2L, Hematocrit 26.7L , Mean Corpuscular Volume 90, Mean Corpuscular Hemoglobin 27.7, Mean Corpuscular Hemoglobin Concent 30.7L, Red Cell Distribution Width 15.5H, Platelet Count 494H, Mean Platelet Volume 5.1L, Neutrophils (%) (Auto) 59.5, Lymphocytes (%) (Auto) 29.0, Monocytes (%) (Auto) 8.7, Eosinophils (%) (Auto) 2.2, Basophils (%) (Auto) 0.5, Sodium Level 140, Potassium Level 4.0, Chloride Level 102, Carbon Dioxide Level 33H, Anion Gap 5, Blood Urea Nitrogen 10, Creatinine 0.8, Estimat Glomerular Filtration Rate , Glucose Level 133H, Calcium Level 8.8, Phosphorus Level 1.5L, Magnesium Level 1.9 Height (Feet): 6 Height (Inches): 6.00 Weight (Pounds): 195 General Appearance: no apparent distress EENT: PERRL/EOMI Neck: supple Cardiovascular: normal rate Respiratory/Chest: decreased breath sounds Abdomen: normal bowel sounds, non tender, soft Extremities: non-tender Sergei Roche MD Apr 11, 2019 09:00
[2019-04-11] MEDS: Pantoprazole Inj IVP SCH (09:04)
[2019-04-11] MEDS: Zinc Sulfate 220mg cap NG SCH (09:04)
[2019-04-11] MEDS: Ascorbic Acid 500mg tab NG SCH (09:04)
[2019-04-11] MEDS: Vancomycin 750mg/D5W 275ml IVPB SCH ×2 (09:05)
--- NOTE | 2019-04-11 10:31 | NUR ---
NURSE NOTES: Received report from CELINE Lockett. Ptient calm, cooperative , sleeping but easily arousable. No sign of cardiac or respriatory distress. AOX2 with appropriate speech but confused to stuation and time--ocasionally confused to person. No CO pain. PICC dressing cdi and flushing easily. G tube feed running per orders with cdi dressing / insertion site. Ladd with clear, yellow urine draining and no leaks. Bed in lowwest , locked position. Turned and repositioned patient off of wounds. Call [facility] in reach and cont'd with plan of care. Addendum: 04/11/19 at 1325 by Jostin Su RN Called [facility] Bowman to give report at 115pm to CELINE Sampson. Spoke with family member , Valentine, this morning. Valentine said other fam member, Ping, was also aware of transfer back to [facility]. Valentine stated she would call directly to [facility] to follow up shortly. Emptied ladd, clamped PEG tube, clamped and capped PICC line. O2 @2L--emt aware of all lines and drains as well as MRSA precautions and full code status. Gave 2pm cardizem per OCT to ensure patient safety and timely med administration. Patient on stretcher for transport breathing easily and smiling. Removed tele pack.
--- NOTE | 2019-04-11 10:42 | Cardiac Electrophysiology PN ---
Assessment/Plan Assessment/Plan 1. S/P Septic shock with GP cocci. On IV antibiotics. EF 60% with mild diastolic dysfunction. 2. Atrial fib with RVR 130s . On Cardizem 30 tid and Xarelto 3. S/P Respiratory failure, likely due to pneumonia. On broad-spectrum IV antibiotics. 4. Mild diastolic dysfunction with elevated BNP On Lasix 20 po bid. 5. History of PE. On Xarelto [address] Oakley and Dr Najera 6. UTI. 7. Dysphagia, S/P PEG. Getting po also for oral gratification DW RN Subjective Subjective Had atrial fib with CVR 04/07/19 and RVR 130s 04/09/19. No further tachy. Feeder at bedside.GT also going in Objective Last 24 Hour Vital Signs Date Time Temp Pulse Resp B/P (MAP) Pulse Ox O2 Delivery O2 Flow Rate FiO2 04/11/19 09:00 Nasal Cannula 2.0 Nasal Cannula 2.0 04/11/19 08:12 78 162/58 (92) 04/11/19 06:25 100 147/80 04/11/19 04:00 100 04/11/19 04:00 97.5 95 19 147/80 (102) 98 04/11/19 00:00 67 04/11/19 00:00 97.6 76 18 146/66 (92) 96 04/10/19 21:21 85 151/75 04/10/19 21:00 Nasal Cannula 2.0 Nasal Cannula 2.0 04/10/19 20:00 83 04/10/19 20:00 97.6 85 18 151/75 (100) 99 04/10/19 16:45 67 156/55 (88) 04/10/19 16:19 82 170/65 04/10/19 16:00 97.2 75 18 170/71 (104) 100 04/10/19 16:00 64 04/10/19 12:00 97.2 80 173/72 (105) 100 04/10/19 12:00 75 Intake and Output 04/10/19 04/11/19 19:00 07:00 Intake Total 160 ml 860 ml Output Total 1800 ml 2000 ml Balance -1640 ml -1140 ml Intake Oral 100 ml Free Water 0 ml 200 ml Tube Feeding 60 ml 660 ml Output Urine Total 1800 ml 2000 ml Laboratory Tests Test 04/11/19 06:58 White Blood Count 8.3 K/UL (4.8-10.8) Red Blood Count 2.95 M/UL (4.70-6.10) L Hemoglobin 8.2 G/DL (14.2-18.0) L Hematocrit 26.7 % (42.0-52.0) L Mean Corpuscular Volume 90 FL (80-99) Mean Corpuscular Hemoglobin 27.7 PG (27.0-31.0) Mean Corpuscular Hemoglobin Concent 30.7 G/DL (32.0-36.0) L Red Cell Distribution Width 15.5 % (11.6-14.8) H Platelet Count 494 K/UL (150-450) H Mean Platelet Volume 5.1 FL (6.5-10.1) L Neutrophils (%) (Auto) 59.5 % (45.0-75.0) Lymphocytes (%) (Auto) 29.0 % (20.0-45.0) Monocytes (%) (Auto) 8.7 % (1.0-10.0) Eosinophils (%) (Auto) 2.2 % (0.0-3.0) Basophils (%) (Auto) 0.5 % (0.0-2.0) Sodium Level 140 MMOL/L (136-145) Potassium Level 4.0 MMOL/L (3.5-5.1) Chloride Level 102 MMOL/L (98-107) Carbon Dioxide Level 33 MMOL/L (21-32) H Anion Gap 5 mmol/L (5-15) Blood Urea Nitrogen 10 mg/dL (7-18) Creatinine 0.8 MG/DL (0.55-1.30) Estimat Glomerular Filtration Rate mL/min (>60) Glucose Level 133 MG/DL (74-106) H Calcium Level 8.8 MG/DL (8.5-10.1) Phosphorus Level 1.5 MG/DL (2.5-4.9) L Magnesium Level 1.9 MG/DL (1.8-2.4) Objective HEAD AND NECK: No JVD LUNGS: Coarse rhonchi. CARDIOVASCULAR: Regular S1 and S2 with no gallop or murmur. ABDOMEN: Soft. PEG in place EXTREMITIES: No pitting edema. Christian Vargas MD Apr 11, 2019 10:42
--- NOTE | 2019-04-11 10:45 | Infectious Diseases Prog Note ---
"Assessment/Plan Assessment/Plan antibiotics : vancomycin iv A 1. MRSA sepsis 2. 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 MRSA pneumonia 4. respiratory failure resolved 5. leucocytosis improving 6. hypertension P 1. continue iv vancomycin 26 more days 2. cbc, bmp, vancomycin level q weekly 3. will follow up cultures Subjective ROS Limited/Unobtainable: Yes Allergies: Coded Allergies: No Known Allergies (Unverified , 01/18/19) Objective Vital Signs Last 24 Hour Vital Signs Date Time Temp Pulse Resp B/P (MAP) Pulse Ox O2 Delivery O2 Flow Rate FiO2 04/11/19 09:00 Nasal Cannula 2.0 Nasal Cannula 2.0 04/11/19 08:12 78 162/58 (92) 04/11/19 06:25 100 147/80 04/11/19 04:00 100 04/11/19 04:00 97.5 95 19 147/80 (102) 98 04/11/19 00:00 67 04/11/19 00:00 97.6 76 18 146/66 (92) 96 04/10/19 21:21 85 151/75 04/10/19 21:00 Nasal Cannula 2.0 Nasal Cannula 2.0 04/10/19 20:00 83 04/10/19 20:00 97.6 85 18 151/75 (100) 99 04/10/19 16:45 67 156/55 (88) 04/10/19 16:19 82 170/65 04/10/19 16:00 97.2 75 18 170/71 (104) 100 04/10/19 16:00 64 04/10/19 12:00 97.2 80 173/72 (105) 100 04/10/19 12:00 75 Height (Feet): 6 Height (Inches): 6.00 Weight (Pounds): 195 Respiratory/Chest: lungs clear Cardiovascular: normal rate, regular rhythm, no gallop/murmur Abdomen: soft, non tender, other - GT Extremities: no edema, other - left arm PICC Laboratory Tests Test 04/11/19 06:58 White Blood Count 8.3 K/UL (4.8-10.8) Red Blood Count 2.95 M/UL (4.70-6.10) L Hemoglobin 8.2 G/DL (14.2-18.0) L Hematocrit 26.7 % (42.0-52.0) L Mean Corpuscular Volume 90 FL (80-99) Mean Corpuscular Hemoglobin 27.7 PG (27.0-31.0) Mean Corpuscular Hemoglobin Concent 30.7 G/DL (32.0-36.0) L Red Cell Distribution Width 15.5 % (11.6-14.8) H Platelet Count 494 K/UL (150-450) H Mean Platelet Volume 5.1 FL (6.5-10.1) L Neutrophils (%) (Auto) 59.5 % (45.0-75.0) Lymphocytes (%) (Auto) 29.0 % (20.0-45.0) Monocytes (%) (Auto) 8.7 % (1.0-10.0) Eosinophils (%) (Auto) 2.2 % (0.0-3.0) Basophils (%) (Auto) 0.5 % (0.0-2.0) Sodium Level 140 MMOL/L (136-145) Potassium Level 4.0 MMOL/L (3.5-5.1) Chloride Level 102 MMOL/L (98-107) Carbon Dioxide Level 33 MMOL/L (21-32) H Anion Gap 5 mmol/L (5-15) Blood Urea Nitrogen 10 mg/dL (7-18) Creatinine 0.8 MG/DL (0.55-1.30) Estimat Glomerular Filtration Rate mL/min (>60) Glucose Level 133 MG/DL (74-106) H Calcium Level 8.8 MG/DL (8.5-10.1) Phosphorus Level 1.5 MG/DL (2.5-4.9) L Magnesium Level 1.9 MG/DL (1.8-2.4) Current Medications Medications (Trade) Dose Ordered Sig/Vaughn Route PRN Reason Start Time Stop Time Status Last Admin Dose Admin Acetaminophen (Tylenol) 650 mg Q4H PRN NG Mild Pain/Temp > 100.5 04/06/19 18:45 04/29/19 18:41 04/07/19 00:44 Ascorbic Acid (Vitamin C) 250 mg EVERY 12 HOURS NG 04/06/19 21:00 04/26/19 17:59 04/11/19 09:04 Chlorhexidine Gluconate (Michelle-Hex 2%) 1 applic DAILY@1999 TOPIC 04/06/19 20:00 05/03/19 19:59 04/10/19 21:21 Diltiazem HCl (Cardizem) 30 mg EVERY 8 HOURS GT 04/09/19 22:00 05/09/19 21:59 04/11/19 06:25 Furosemide (Lasix) 20 mg EVERY 12 HOURS NG 04/06/19 21:00 05/04/19 08:59 04/11/19 09:03 Levothyroxine Sodium (Synthroid) 100 mcg DAILY@0630 NG 04/07/19 06:30 04/30/19 06:29 04/11/19 06:25 Pantoprazole (Protonix) 40 mg DAILY IVP 04/07/19 09:00 04/26/19 08:59 04/11/19 09:04 Potassium Chloride (K-Dur) 20 meq DAILY ORAL 04/07/19 12:45 05/07/19 12:44 04/11/19 09:04 Sodium Hypochlorite (Dakin's Quarter Strength) 1 applic EVERY 12 HOURS TOPIC 04/06/19 21:00 04/27/19 00:00 04/10/19 21:21 Vancomycin HCl (Vanco rx to dose) 1 ea DAILY PRN MISC Per rx protocol 04/07/19 09:00 05/08/19 08:59 Vancomycin HCl 750 mg/Dextrose 275 ml @ 183.333 mls/hr Q24H IVPB 04/07/19 08:00 05/07/19 23:59 04/11/19 09:05 Zinc Sulfate (Zinc Sulfate) 220 mg DAILY NG 04/07/19 09:00 04/27/19 08:59 04/11/19 09:04 Ambrocio Lemon MD Apr 11, 2019 10:45"
--- NOTE | 2019-04-11 11:11 | NUR ---
DISCHARGE DISPOSITION: PLEASE READ PATIENT TO BE DISCHARGED TO [facility] ROOM [address] T: [phone]>> CALL FOR REPORT [facility] ETA 1300 VM LEFT FOR . DETENTION
--- NOTE | 2019-04-11 11:48 | Pulmonology Progress Note ---
Assessment/Plan Assessment/Plan (1) Severe sepsis (2) Respiratory distress (3) Dyspnea (4) Hypoxia (5) Decubitus skin ulcer (6) Lung mass (7) Multifocal pneumonia (8) Staphylococcus aureus bacteremia (9) MRSA bacteremia (10) Psoas abscess (11) Hypothyroidism Assessment/Plan: resp status improved abx per ID - complete course PEG - tolerates tube feeds continue Xarelto dc today d/w RN Subjective ROS Limited/Unobtainable: Yes Allergies: Coded Allergies: No Known Allergies (Unverified , 01/18/19) Objective Last 24 Hour Vital Signs Date Time Temp Pulse Resp B/P (MAP) Pulse Ox O2 Delivery O2 Flow Rate FiO2 04/11/19 09:00 Nasal Cannula 2.0 Nasal Cannula 2.0 04/11/19 08:12 78 162/58 (92) 04/11/19 06:25 100 147/80 04/11/19 04:00 100 04/11/19 04:00 97.5 95 19 147/80 (102) 98 04/11/19 00:00 67 04/11/19 00:00 97.6 76 18 146/66 (92) 96 04/10/19 21:21 85 151/75 04/10/19 21:00 Nasal Cannula 2.0 Nasal Cannula 2.0 04/10/19 20:00 83 04/10/19 20:00 97.6 85 18 151/75 (100) 99 04/10/19 16:45 67 156/55 (88) 04/10/19 16:19 82 170/65 04/10/19 16:00 97.2 75 18 170/71 (104) 100 04/10/19 16:00 64 04/10/19 12:00 97.2 80 173/72 (105) 100 04/10/19 12:00 75 Intake and Output 04/10/19 04/11/19 19:00 07:00 Intake Total 160 ml 860 ml Output Total 1800 ml 2000 ml Balance -1640 ml -1140 ml Intake Oral 100 ml Free Water 0 ml 200 ml Tube Feeding 60 ml 660 ml Output Urine Total 1800 ml 2000 ml Objective alert HEENT: normocephalic Respiratory/Chest: lungs clear Cardiovascular: normal rate Laboratory Tests 04/11/19 06:58: White Blood Count 8.3, Red Blood Count 2.95L, Hemoglobin 8.2L, Hematocrit 26.7L , Mean Corpuscular Volume 90, Mean Corpuscular Hemoglobin 27.7, Mean Corpuscular Hemoglobin Concent 30.7L, Red Cell Distribution Width 15.5H, Platelet Count 494H, Mean Platelet Volume 5.1L, Neutrophils (%) (Auto) 59.5, Lymphocytes (%) (Auto) 29.0, Monocytes (%) (Auto) 8.7, Eosinophils (%) (Auto) 2.2, Basophils (%) (Auto) 0.5, Sodium Level 140, Potassium Level 4.0, Chloride Level 102, Carbon Dioxide Level 33H, Anion Gap 5, Blood Urea Nitrogen 10, Creatinine 0.8, Estimat Glomerular Filtration Rate , Glucose Level 133H, Calcium Level 8.8, Phosphorus Level 1.5L, Magnesium Level 1.9 Current Medications Medications (Trade) Dose Ordered Sig/Vaughn Route PRN Reason Start Time Stop Time Status Last Admin Dose Admin Acetaminophen (Tylenol) 650 mg Q4H PRN NG Mild Pain/Temp > 100.5 04/06/19 18:45 04/29/19 18:41 04/07/19 00:44 Ascorbic Acid (Vitamin C) 250 mg EVERY 12 HOURS NG 04/06/19 21:00 04/26/19 17:59 04/11/19 09:04 Chlorhexidine Gluconate (Michelle-Hex 2%) 1 applic DAILY@1999 TOPIC 04/06/19 20:00 05/03/19 19:59 04/10/19 21:21 Clonidine HCl (Catapres Tab) 0.1 mg Q2H PRN ORAL sbp>170 04/11/19 10:45 05/11/19 10:44 Diltiazem HCl (Cardizem) 30 mg EVERY 8 HOURS GT 04/09/19 22:00 05/09/19 21:59 04/11/19 06:25 Furosemide (Lasix) 20 mg EVERY 12 HOURS NG 04/06/19 21:00 05/04/19 08:59 04/11/19 09:03 Levothyroxine Sodium (Synthroid) 100 mcg DAILY@0630 NG 04/07/19 06:30 04/30/19 06:29 04/11/19 06:25 Pantoprazole (Protonix) 40 mg DAILY IVP 04/07/19 09:00 04/26/19 08:59 04/11/19 09:04 Potassium Chloride (K-Dur) 20 meq DAILY ORAL 04/07/19 12:45 05/07/19 12:44 04/11/19 09:04 Sodium Hypochlorite (Dakin's Quarter Strength) 1 applic EVERY 12 HOURS TOPIC 04/06/19 21:00 04/27/19 00:00 04/10/19 21:21 Vancomycin HCl (Vanco rx to dose) 1 ea DAILY PRN MISC Per rx protocol 04/07/19 09:00 05/08/19 08:59 Vancomycin HCl 750 mg/Dextrose 275 ml @ 183.333 mls/hr Q24H IVPB 04/07/19 08:00 05/07/19 23:59 04/11/19 09:05 Zinc Sulfate (Zinc Sulfate) 220 mg DAILY NG 04/07/19 09:00 04/27/19 08:59 04/11/19 09:04 Barry Najera MD Apr 11, 2019 11:48
[2019-04-11 12:00] VITALS: BP 152/58
[2019-04-11] MEDS: Dakin's 0.125% Soln (Quarter Strength) 16oz TOPIC SCH (12:34)
[2019-04-11 12:55] VITALS: BP 152/58
--- NOTE | 2019-04-11 13:29 | Hematology/Onc Progress Note ---
Assessment/Plan Assessment/Plan Assessment and Recs: # Anemia of chronic disease, multifactorial, and gi bleed --> hold off on iron or epo at this time --> anemia panel has been reviewed --> hgb trend 9.6-->8.3-->6.5-->8.1-->8.7-->6.8-->8.1-->7.6-->7.9-->8-->7.8-->8- ->8.2 --> no evidence of hemolysis --> occult blood +++ gi eval prn --> transfuse if hgb <7 --> s/p blood tx: 03/31 --> on xarelto, has been started # Lung mass (2.5 x 2.3 x 1.8 cm right apical masslike opacity) with smaller adjacent similar smaller opacities. Favor scarring, but the possibility of neoplasm cannot be ruled out. 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, r/o mets --> patient is on pressors so hold off on diagnosis until more stable --> at some point will need a tissue diagnosis, as well as further w/u --> given advanced age, hold off on any extensive immediate care --> on xarelto at this time--> Once peg placed,can restart xarelto # DVT + Pulmonary embolism history could be related to mass/malignancy * HYPERCOAGULABLE DISORDER* --> remains on xarelto (continue as outpatient) --> d/w cards # Thrombocytopenia likely due to infection --> currently improved --> trend 203-->124-->121-->100k-->121k-->179k-->274-->345-->401-->400-->494k --> smear reviewed and no schistocytes noted --> ok for ppi # Leukocytosis is 2/2 septic shock with uti --> has been started on abx (vanc/zosyn) --> further w/u for altered mental status --> wbc 14-->19.7-->21-->9.6-->9.3-->7.2-->10.8 # Iron Overload --> Ferrtin 1327 continue to monitor consider chelation therapy prior to blood tx. --> on iv iron # Renal insufficiency --> as per renal recs # Respiratory failure --> sbp per pulm --> extubated 04/03 --> currently on nc # Hypotension on fluids now better --> abx and pressors # DVT ppx -> ok for xarelto The timing of this note does not necessarily reflect the time of the patient was seen. GREATLY APPRECIATE CONSULTATION. Subjective Constitutional: Denies: no symptoms, chills, fever, malaise, weakness, other HEENT: Denies: no symptoms, eye pain, blurred vision, tearing, double vision, ear pain, ear discharge, nose pain, nose congestion, throat pain, throat swelling, mouth pain, mouth swelling, other Respiratory: Denies: no symptoms, cough, shortness of breath, SOB with excertion, SOB at rest, sputum, wheezing, other Gastrointestinal/Abdominal: Denies: no symptoms, abdomen distended, abdominal pain, black stools, tarry stools, blood in stool, constipated, diarrhea, difficulty swallowing, nausea, poor appetite, poor fluid intake, rectal bleeding , vomiting, other Genitourinary: Denies: no symptoms, burning, discharge, frequency, flank pain, hematuria, incontinence, pain, urgency, other Neurologic/Psychiatric: Denies: no symptoms, anxiety, depressed, emotional problems, headache, numbness, paresthesia, pre-existing deficit, seizure, tingling, tremors, weakness, other Endocrine: Denies: no symptoms, excessive sweating, flushing, intolerance to cold, intolerance to heat, increased hunger, increased thirst, increased urine, unexplained weight gain, unexplained weight loss, other Allergies: Coded Allergies: No Known Allergies (Unverified , 01/18/19) Subjective 03/28: labs have been reviewed, hgb is less than 7, hgb 6.5, and prbc that has been ordered 03/29: in icu, on abx, no signs of distress, blood tx completed, labs reviewed 03/30: hgb is better, remains in the icu, on pressors levo, otherwise gtf started 03/31: icu, hgb 6.8, blood tx ordered, on rivaroxaban, vent, ng 04/02: on ng/vent, remains in the icu, recovering well s/p transfu, rivaroxaban continued 04/03: on xarelto, is off of midronine given low hr 04/04: s/p extubation, on nc, antrum biop negative for malignant cells, peg planning 04/05: for peg, off xarelto, family agreed, no bleeding 04/06: on abx, vs stable, no fever or chills, no distress 04/07: vs stable, no f/c, peg feeding, denies pain. 04/08: generally would not object to the use of noac, will dw cards 04/10: no events, remains on xarelto, has been started 04/11: ongoing gtube, on feeds, no bleeding, no f/c Objective Objective Current Medications Medications (Trade) Dose Ordered Sig/Vaughn Route PRN Reason Start Time Stop Time Status Last Admin Dose Admin Acetaminophen (Tylenol) 650 mg Q4H PRN NG Mild Pain/Temp > 100.5 04/06/19 18:45 04/29/19 18:41 04/07/19 00:44 Ascorbic Acid (Vitamin C) 250 mg EVERY 12 HOURS NG 04/06/19 21:00 04/26/19 17:59 04/11/19 09:04 Chlorhexidine Gluconate (Michelle-Hex 2%) 1 applic DAILY@1999 TOPIC 04/06/19 20:00 05/03/19 19:59 04/10/19 21:21 Clonidine HCl (Catapres Tab) 0.1 mg Q2H PRN ORAL sbp>170 04/11/19 10:45 05/11/19 10:44 Diltiazem HCl (Cardizem) 30 mg EVERY 8 HOURS GT 04/09/19 22:00 05/09/19 21:59 04/11/19 12:55 Furosemide (Lasix) 20 mg EVERY 12 HOURS NG 04/06/19 21:00 05/04/19 08:59 04/11/19 09:03 Levothyroxine Sodium (Synthroid) 100 mcg DAILY@0630 NG 04/07/19 06:30 04/30/19 06:29 04/11/19 06:25 Pantoprazole (Protonix) 40 mg DAILY IVP 04/07/19 09:00 04/26/19 08:59 04/11/19 09:04 Potassium Chloride (K-Dur) 20 meq DAILY ORAL 04/07/19 12:45 05/07/19 12:44 04/11/19 09:04 Sodium Hypochlorite (Dakin's Quarter Strength) 1 applic EVERY 12 HOURS TOPIC 04/06/19 21:00 04/27/19 00:00 04/11/19 12:34 Vancomycin HCl (Vanco rx to dose) 1 ea DAILY PRN MISC Per rx protocol 04/07/19 09:00 05/08/19 08:59 Vancomycin HCl 750 mg/Dextrose 275 ml @ 183.333 mls/hr Q24H IVPB 04/07/19 08:00 05/07/19 23:59 04/11/19 09:05 Zinc Sulfate (Zinc Sulfate) 220 mg DAILY NG 04/07/19 09:00 04/27/19 08:59 04/11/19 09:04 Last 24 Hour Vital Signs Date Time Temp Pulse Resp B/P (MAP) Pulse Ox O2 Delivery O2 Flow Rate FiO2 04/11/19 12:55 79 152/58 04/11/19 12:00 97.4 79 18 152/58 (89) 97 04/11/19 09:00 Nasal Cannula 2.0 Nasal Cannula 2.0 04/11/19 08:12 78 162/58 (92) 04/11/19 08:00 74 04/11/19 06:25 100 147/80 04/11/19 04:00 100 04/11/19 04:00 97.5 95 19 147/80 (102) 98 04/11/19 00:00 67 04/11/19 00:00 97.6 76 18 146/66 (92) 96 04/10/19 21:21 85 151/75 04/10/19 21:00 Nasal Cannula 2.0 Nasal Cannula 2.0 04/10/19 20:00 83 04/10/19 20:00 97.6 85 18 151/75 (100) 99 04/10/19 16:45 67 156/55 (88) 04/10/19 16:19 82 170/65 04/10/19 16:00 97.2 75 18 170/71 (104) 100 04/10/19 16:00 64 04/10/19 12:00 97.2 80 173/72 (105) 100 04/10/19 12:00 75 04/10/19 09:50 133/71 (91) 04/10/19 09:00 Nasal Cannula 2.0 Nasal Cannula 2.0 04/10/19 08:04 96 Nasal Cannula 2.0 32 04/10/19 08:00 63 04/10/19 08:00 98.3 70 20 167/66 (99) 98 04/10/19 05:57 108 130/63 04/10/19 04:00 108 04/10/19 04:00 98.4 85 20 130/63 (85) 97 04/10/19 00:00 72 04/10/19 00:00 97.6 98 20 119/64 (82) 96 04/09/19 21:55 81 150/59 04/09/19 21:00 Nasal Cannula 2.0 Nasal Cannula 2.0 04/09/19 20:00 74 04/09/19 20:00 97.0 81 20 150/59 (89) 98 04/09/19 16:00 62 04/09/19 16:00 97.1 68 18 122/45 (70) 100 Intake and Output 04/10/19 04/11/19 19:00 07:00 Intake Total 160 ml 860 ml Output Total 1800 ml 2000 ml Balance -1640 ml -1140 ml Intake Oral 100 ml Free Water 0 ml 200 ml Tube Feeding 60 ml 660 ml Output Urine Total 1800 ml 2000 ml Labs Test 04/09/19 09:30 04/10/19 07:00 04/11/19 06:58 White Blood Count 7.6 K/UL (4.8-10.8) 8.3 K/UL (4.8-10.8) Red Blood Count 2.86 M/UL (4.70-6.10) 2.95 M/UL (4.70-6.10) Hemoglobin 8.0 G/DL (14.2-18.0) 8.2 G/DL (14.2-18.0) Hematocrit 26.0 % (42.0-52.0) 26.7 % (42.0-52.0) Mean Corpuscular Volume 91 FL (80-99) 90 FL (80-99) Mean Corpuscular Hemoglobin 28.1 PG (27.0-31.0) 27.7 PG (27.0-31.0) Mean Corpuscular Hemoglobin Concent 31.0 G/DL (32.0-36.0) 30.7 G/DL (32.0-36.0) Red Cell Distribution Width 15.2 % (11.6-14.8) 15.5 % (11.6-14.8) Platelet Count 451 K/UL (150-450) 494 K/UL (150-450) Mean Platelet Volume 4.9 FL (6.5-10.1) 5.1 FL (6.5-10.1) Neutrophils (%) (Auto) 67.3 % (45.0-75.0) 59.5 % (45.0-75.0) Lymphocytes (%) (Auto) 22.0 % (20.0-45.0) 29.0 % (20.0-45.0) Monocytes (%) (Auto) 7.9 % (1.0-10.0) 8.7 % (1.0-10.0) Eosinophils (%) (Auto) 2.4 % (0.0-3.0) 2.2 % (0.0-3.0) Basophils (%) (Auto) 0.5 % (0.0-2.0) 0.5 % (0.0-2.0) Sodium Level 138 MMOL/L (136-145) 140 MMOL/L (136-145) Potassium Level 3.7 MMOL/L (3.5-5.1) 4.0 MMOL/L (3.5-5.1) Chloride Level 103 MMOL/L (98-107) 102 MMOL/L (98-107) Carbon Dioxide Level 33 MMOL/L (21-32) 33 MMOL/L (21-32) Anion Gap 2 mmol/L (5-15) 5 mmol/L (5-15) Blood Urea Nitrogen 8 mg/dL (7-18) 10 mg/dL (7-18) Creatinine 0.8 MG/DL (0.55-1.30) 0.8 MG/DL (0.55-1.30) Estimat Glomerular Filtration Rate mL/min (>60) mL/min (>60) Glucose Level 132 MG/DL (74-106) 133 MG/DL (74-106) Calcium Level 8.2 MG/DL (8.5-10.1) 8.8 MG/DL (8.5-10.1) Magnesium Level 1.6 MG/DL (1.8-2.4) 1.9 MG/DL (1.8-2.4) Vancomycin Level Trough 19.0 ug/mL (5.0-12.0) Phosphorus Level 1.5 MG/DL (2.5-4.9) Height (Feet): 6 Height (Inches): 6.00 Weight (Pounds): 195 Objective PE General: severe distress, chronically Ill ENT: moist mucus membranes, ng++ Neck: limited range of motion Respiratory: respiratory distress, rhonch, extubated, nc++ Cardiovascular: RRr, no mgr Gastrointestinal: normal inspection, soft ++ peg Msk: normal inspection Neuro: responsive, motor weakness Skin: no rash Jake Womack MD Apr 11, 2019 13:29
--- NOTE | 2019-04-11 18:31 | Surgery Progress Note ---
Surgery Progress Note Subjective Additional Comments d/c planning for today improved exam stable Objective Last 24 Hour Vital Signs Date Time Temp Pulse Resp B/P (MAP) Pulse Ox O2 Delivery O2 Flow Rate FiO2 04/11/19 12:55 79 152/58 04/11/19 12:00 97.4 79 18 152/58 (89) 97 04/11/19 09:00 Nasal Cannula 2.0 Nasal Cannula 2.0 04/11/19 08:12 78 162/58 (92) 04/11/19 08:00 74 04/11/19 06:25 100 147/80 04/11/19 04:00 100 04/11/19 04:00 97.5 95 19 147/80 (102) 98 04/11/19 00:00 67 04/11/19 00:00 97.6 76 18 146/66 (92) 96 04/10/19 21:21 85 151/75 04/10/19 21:00 Nasal Cannula 2.0 Nasal Cannula 2.0 04/10/19 20:00 83 04/10/19 20:00 97.6 85 18 151/75 (100) 99 I&O Intake and Output 04/10/19 04/11/19 19:00 07:00 Intake Total 160 ml 860 ml Output Total 1800 ml 2000 ml Balance -1640 ml -1140 ml Intake Oral 100 ml Free Water 0 ml 200 ml Tube Feeding 60 ml 660 ml Output Urine Total 1800 ml 2000 ml Dressing: saturated Wound: other Drains: other Cardiovascular: RSR Respiratory: decreased breath sounds Abdomen: soft, present bowel sounds, non-distended Extremities: no cyanosis, other Laboratory Tests Test 04/11/19 06:58 White Blood Count 8.3 K/UL (4.8-10.8) Red Blood Count 2.95 M/UL (4.70-6.10) L Hemoglobin 8.2 G/DL (14.2-18.0) L Hematocrit 26.7 % (42.0-52.0) L Mean Corpuscular Volume 90 FL (80-99) Mean Corpuscular Hemoglobin 27.7 PG (27.0-31.0) Mean Corpuscular Hemoglobin Concent 30.7 G/DL (32.0-36.0) L Red Cell Distribution Width 15.5 % (11.6-14.8) H Platelet Count 494 K/UL (150-450) H Mean Platelet Volume 5.1 FL (6.5-10.1) L Neutrophils (%) (Auto) 59.5 % (45.0-75.0) Lymphocytes (%) (Auto) 29.0 % (20.0-45.0) Monocytes (%) (Auto) 8.7 % (1.0-10.0) Eosinophils (%) (Auto) 2.2 % (0.0-3.0) Basophils (%) (Auto) 0.5 % (0.0-2.0) Sodium Level 140 MMOL/L (136-145) Potassium Level 4.0 MMOL/L (3.5-5.1) Chloride Level 102 MMOL/L (98-107) Carbon Dioxide Level 33 MMOL/L (21-32) H Anion Gap 5 mmol/L (5-15) Blood Urea Nitrogen 10 mg/dL (7-18) Creatinine 0.8 MG/DL (0.55-1.30) Estimat Glomerular Filtration Rate mL/min (>60) Glucose Level 133 MG/DL (74-106) H Calcium Level 8.8 MG/DL (8.5-10.1) Phosphorus Level 1.5 MG/DL (2.5-4.9) L Magnesium Level 1.9 MG/DL (1.8-2.4) Plan Problems: (1) Respiratory distress (2) Decubitus skin ulcer Assessment & Plan: Pt presented on admission with multiple pressure injuries and ulcerations 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 Base of wound has mixed slough and necrosis. Edges adherent and dark . Periwound indurated with darker skin tone. Pt complained of pain when minimally palpated. Mild odor noted Full thickness ulcer R tibia. Base of wound has slough. Edges adherent and flat ,Periwound without erythema or fluctuance. Stable dry eschar noted to R hallux. edges are dark but adherent to base of wound. Periwound dark without erythema or fluctuance Stable dry eschar noted to R st metatarsal head. Periwound pale without fluctuance Stable dry eschar noted to dorsal aspects of R 3rd and 4th metatarsals. Full thickness ulcer lateral R 5th metatarsal. base of wound with some areas of necrosis and edges are black . No odor or exudate noted Stable dry eschar R heel . Periwound fluctuant without erythema. Pt complained of pain when minimally palpated. Stable dry eschar noted to dorso/flexor L foot. Periwound without erythema , induration or fluctuance Reabsorbing blood blister noted to medial L foot. Periwound without erythema or fluctuance L heel is dry and blanchable with historical scarring from previous wounds .Dry flaky skin noted to both feet. Tx.Plan: Cleanse sacral wound with Dakin's 0.125% stefani. Loose pack wound with Dakin's moist Kerlix. Apply Moisture Barrier paste to borders and cover with Optifoam drsg. Twice daily and prn. Cleanse Wound R tibia with Saline. Apply Therahoney. Cover with Optifoam drsg. Change every 3 days and prn.Apply Cavilon Skin BArrier to both heels. Cover each heel with Optifoam drsg. change every 7 days and prn APM/PHIL mattress overlay. Reposition at least every 2hours or as tolerated. Off-load heels with pillow. (3) Severe sepsis Assessment & Plan: leukocytosis resolved anemia lactic acidosis resolved improving septic MRSA bacteremia labs noted imaging noted Cont IV abx as per ID feeds wounds evaluated and care plan as above labs noted f/u cxr will follow with recs thank you DAILY ESTIMATED NEEDS: Needs based on Wound, critical care 78.6kg 25-30 kcals/kg [id number] total kcals 1.25-2 g protein/kg 98-157 g total protein Fluid per MD, on lasix NUTRITION DIAGNOSIS: 1) Increased kcal/ pro needs r/t wound healing as evidenced by full thickness sacral wound, pending updated eval. 2) Swallowing difficulty r/t respiratory status as evidenced by s/p RR, pt now orally intubated, on pressor support. CURRENT DIET: Regular-> pt now intubated ENTERAL NUTRITION RECOMMENDATIONS: Osmolite 1.5 @55ml/hr x24 hrs + Prosource BID to provide 1320ml, 1980 kcal, 83g + 22g pro, 1006ml free H2O - WHEN HEMODYNAMICALLY STABLE, rec to obtain GI access, initiate non oral feeds to meed est nutritional needs - Start Osmolite 1.5 @25ml/hr for 6 hrs, advance as tolerated 10ml/hr q4-6 hrs to goal. - Flush per MD/ HOB over 30 degrees ADDITIONAL RECOMMENDATIONS: 1) Obtain a CALIBRATED bed wt 2) Feed w/ hemodynamic stability -> currently on pressors x2 3) WOUND CARE: Add BRUCE BID w/ GI access Add VIT C 250mg BID Add ZnSO4 220mg daily x10 days 4) On lasix, monitor lytes daily 5) [employer] eval upon extubation (4) Dyspnea (5) Hypoxia Additional Comments d/c today cont with above dressing change instuctions to help with wound care and healing time of note does not represent when patient was seen than you Tawanda Alfaro Apr 11, 2019 18:31
--- NOTE | 2019-04-12 09:40 | Discharge Summary ---
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
== END 2019-04-11 13:15 | DRG 870 ==
LOC: EDBD 12:22 → EMR 14:15 → EDBEDREQ 14:23 → 2E 14:49 → ICU 17:10 → 2W 04-03 21:46 → 2E 04-06 18:31
PROC: 0BH17EZ Insertion of Endotracheal Airway into Trachea, Via Natural or Artificial Opening (ICD-10-PCS; principal; 2019-03-26)
PROC: 5A1955Z Respiratory Ventilation, Greater than 96 Consecutive Hours (ICD-10-PCS; principal; 2019-03-26)
PROC: 06HM33Z Insertion of Infusion Device into Right Femoral Vein, Percutaneous Approach (ICD-10-PCS; principal; 2019-03-26)
PROC: 0DB78ZX Excision of Stomach, Pylorus, Via Natural or Artificial Opening Endoscopic, Diagnostic (ICD-10-PCS; 2019-03-29)
PROC: B548ZZA Ultrasonography of Superior Vena Cava, Guidance (ICD-10-PCS; 2019-04-03)
PROC: 02HV33Z Insertion of Infusion Device into Superior Vena Cava, Percutaneous Approach (ICD-10-PCS; 2019-04-03)
PROC: 0DH63UZ Insertion of Feeding Device into Stomach, Percutaneous Approach (ICD-10-PCS; 2019-04-06)
PROC: 0DJ08ZZ Inspection of Upper Intestinal Tract, Via Natural or Artificial Opening Endoscopic (ICD-10-PCS; 2019-04-06)
DX: A41.02 Sepsis due to Methicillin resistant Staphylococcus aureus (principal); L89.154 Pressure ulcer of sacral region, stage 4; J69.0 Pneumonitis due to inhalation of food and vomit; E43 Unspecified severe protein-calorie malnutrition; R65.21 Severe sepsis with septic shock; J96.01 Acute respiratory failure with hypoxia; J15.212 Pneumonia due to Methicillin resistant Staphylococcus aureus; I50.33 Acute on chronic diastolic (congestive) heart failure; K29.71 Gastritis, unspecified, with bleeding; K68.12 Psoas muscle abscess; N39.0 Urinary tract infection, site not specified; D68.69 Other thrombophilia; I47.1 Supraventricular tachycardia; M46.26 Osteomyelitis of vertebra, lumbar region; I11.0 Hypertensive heart disease with heart failure; F03.90 Unspecified dementia, unspecified severity, without behavioral disturbance, psychotic disturbance, mood disturbance, and anxiety; F32.9 Major depressive disorder, single episode, unspecified; Z68.22 Body mass index [BMI] 22.0-22.9, adult; R91.8 Other nonspecific abnormal finding of lung field; Z86.711 Personal history of pulmonary embolism; Z86.718 Personal history of other venous thrombosis and embolism; Z79.01 Long term (current) use of anticoagulants; I44.4 Left anterior fascicular block; R13.10 Dysphagia, unspecified; R00.1 Bradycardia, unspecified; M46.46 Discitis, unspecified, lumbar region; D69.6 Thrombocytopenia, unspecified
CPT/HCPCS: 31500; 36415; 36569; 36600; 71045; 71275; 74018; 74177; 74230; 76937; 80048; 80053; 80202; 81003; 82270; 82533; 82550; 82553; 82728; 82803; 82962; 83605; 83690; 83735; 83880; 84100; 84439; 84443; 84480; 84481; 84484; 85007; 85025; 85379; 85610; 85651; 85730; 86140; 86703; 86705; 86709; 86803; 86850; 86900; 86901; 86920; 87040; 87070; 87081; 87181; 87205; 87340; 93005; 93306; 94002; 94003; 94150; 94664; 96365; 96368; 99291; J2370; J8499

== ENCOUNTER 2019-04-20 18:45 | Inpatient (IN) | payer MEDICARE, OTHER, MEDICAID ==
[~2019-04-20] VITALS: Ht 180.3 cm; Wt 89.8 kg
[~2019-04-20 18:45] MED LIST changes: +IPRATROPIU0.2 MG/1 M HHN; +PRO-STAT LIQUID30 ML ORAL
--- NOTE | 2019-04-20 19:08 | Emergency Room Report ---
History of Present Illness General Chief Complaint: Altered Level of Consciousness Source: Medical Record, EMS Present Illness HPI This patient is brought in by EMS from a senior living facility. He is chronically ill. He is brought in for altered mental status. There is no other history of present illness available. He does have a history of GI bleed , pneumonia, hypothyroidism, PE and lumbar spine dislocation. He was admitted previously to the ICU and was intubated. He is unable to give any type of history as he is unresponsive. Allergies: Coded Allergies: No Known Allergies (Unverified , 01/18/19) Patient History Past Medical History: see triage record, old chart reviewed, HTN, CAD, CVA/TIA , dementia, seizures Social History: Denies: smoking, alcohol use, drug use Reviewed Nursing Documentation: PMH: Agreed; PSxH: Agreed Nursing Documentation-PMH Hx Cardiac Problems: No - PE G-TUBE Hx Hypertension: Yes Hx Cancer: No Hx Gastrointestinal Problems: No Hx Neurological Problems: Yes Hx Cerebrovascular Accident: Yes - Encephalopathy, anemia Hx Dementia: Yes Hx Encephalitis: Yes Hx Seizures: Yes Review of Systems All Other Systems: limited Physical Exam Vital Signs Date Time Temp Pulse Resp B/P (MAP) Pulse Ox O2 Delivery O2 Flow Rate FiO2 04/20/19 18:50 97.3 66 24 61/38 (46) 100 Non-Rebreather 15.0 Sp02 EP Interpretation: other - 100% on NRB General Appearance: Chronically Ill - unresponsive Head: normocephalic ENT: other - Poor dentition Neck: normal inspection Respiratory: rales, rhonchi Cardiovascular #1: regular rate, rhythm Gastrointestinal: normal inspection, soft, non-distended, other - G-tube in place Neurologic: other - GCS 3 Procedures CPR/Code Blue CPR/Code Blue Narrative Shortly after this patient arrived, the patient had cardiac arrest in PEA. He underwent CPR/ACLS protocol. Please see the RN CPR record. He underwent multiple rounds of CPR and ACLS. He was intubated by rapid sequence intubation on the first attempt. He did have return of spontaneous circulation. Later he also had PEA arrest and underwent multiple rounds of CPR and epinephrine per ACLS protocol. He also received atropine. He also got return of spontaneous circulation. Intubation Intubation : Consent: Emergent Intubation Method: orotracheal Tube Size (cm): 7.5 Breath Sounds after Intubation: equal Intubation Complications: no complications Post Intubation Xray: Yes Progress/Xray Impression: Appropriate tube placement Attempts: One Patient Tolerated: Well Complications: None Medical Decision Making Diagnostic Impression: Primary Impression: Septic shock Additional Impressions: Cardiopulmonary arrest with successful resuscitation Respiratory failure Pulmonary edema Hypothyroid Hypothermia ER Course This patient presented with a GCS of 3 and in shock. He appears to be in a combination of septic shock and severe hypothyroidism. I was concerned about the possibility of hypothyroidism based on his vital signs with hypotension, bradycardia and hypothermia. Presumptively, he was given IV levothyroxine and hydrocortisone. He was also given broad-spectrum antibiotics and aggressive IV fluids. He was placed on a Levophed drip for profound hypotension. The patient underwent multiple rounds of CPR after going into PEA arrest twice. See the RN record of this. He was placed on a warming machine for his hypothermia. He is admitted to the ICU. This patient is critically ill. This patient required complex medical decision- making, aggressive intervention, extensive laboratory workup and monitoring. Critical care time: 60 minutes. Laboratory Tests Test 04/20/19 19:10 White Blood Count 31.1 K/UL (4.8-10.8) *H Red Blood Count 2.94 M/UL (4.70-6.10) L Hemoglobin 8.2 G/DL (14.2-18.0) L Hematocrit 25.0 % (42.0-52.0) L Mean Corpuscular Volume 85 FL (80-99) Mean Corpuscular Hemoglobin 28.0 PG (27.0-31.0) Mean Corpuscular Hemoglobin Concent 32.9 G/DL (32.0-36.0) Red Cell Distribution Width 14.6 % (11.6-14.8) Platelet Count 299 K/UL (150-450) Mean Platelet Volume 5.8 FL (6.5-10.1) L Neutrophils (%) (Auto) % (45.0-75.0) Lymphocytes (%) (Auto) % (20.0-45.0) Monocytes (%) (Auto) % (1.0-10.0) Eosinophils (%) (Auto) % (0.0-3.0) Basophils (%) (Auto) % (0.0-2.0) Neutrophils % (Manual) Pending Lymphocytes % (Manual) Pending Platelet Estimate Pending Platelet Morphology Pending Sodium Level 137 MMOL/L (136-145) Potassium Level 4.7 MMOL/L (3.5-5.1) Chloride Level 101 MMOL/L (98-107) Carbon Dioxide Level 22 MMOL/L (21-32) Anion Gap 14 mmol/L (5-15) Blood Urea Nitrogen 47 mg/dL (7-18) H Creatinine 1.9 MG/DL (0.55-1.30) H Estimate Glomerular Filtration Rate mL/min (>60) Glucose Level 106 MG/DL (74-106) Lactic Acid Level 8.20 mmol/L (0.4-2.0) H Calcium Level 9.5 MG/DL (8.5-10.1) Total Bilirubin 0.6 MG/DL (0.2-1.0) Aspartate Amino Transferase (AST) 62 U/L (15-37) H Alanine Aminotransferase (ALT) 19 U/L (12-78) Alkaline Phosphatase 103 U/L (46-116) Total Creatine Kinase 477 U/L (26-308) H Creatine Kinase MB 27.4 NG/ML (0.0-3.6) H Creatine Kinase MB Relative Index 5.7 Troponin I 0.000 ng/mL (0.000-0.056) Total Protein 7.2 G/DL (6.4-8.2) Albumin 1.2 G/DL (3.4-5.0) L Globulin 6.0 g/dL Albumin/Globulin Ratio 0.2 (1.0-2.7) L Thyroid Stimulating Hormone (TSH) 14.383 uiU/mL (0.358-3.740) Free Thyroxine 1.29 NG/DL (0.76-1.46) Free Triiodothyronine < 0.5 pg/mL (2.3-4.2) L EKG Diagnostic Results Rate: bradycardiac Rhythm: other - S.bradycardia ST Segments: no acute changes Rhythm Strip Diag. Results EP Interpretation: yes Rate: 50's Rhythm: no PVC's, no ectopy, other - S.bradycardia Chest X-Ray Diagnostic Results Chest X-Ray Diagnostic Results : Chest X-Ray Ordered: Yes # of Views/Limited/Complete: 1 View Indication: Other EP Interpretation: Yes Interpretation: other - Diffuse inflitrates/pulmonary edema. Appropriate ET tube placement. Impression: Other - See above. Electronically Signed by: Jenniffer Yanez DO Last Vital Signs Date Time Temp Pulse Resp B/P (MAP) Pulse Ox O2 Delivery O2 Flow Rate FiO2 04/20/19 18:50 97.3 66 24 61/38 (46) 100 Non-Rebreather 15.0 Disposition: ADMITTED INPATIENT Condition: Critical Jenniffer Yanez DO Apr 20, 2019 19:08
[2019-04-20 19:10] VITALS: BP 60/35
[2019-04-20] MEDS ORDERED: Vancomycin 1 GM in NS 275 ML IVPB ONE (19:15)
[2019-04-20] MEDS ORDERED: Hydrocortisone 100mg Inj IV ONE (19:15)
--- NOTE | 2019-04-20 19:15 | NUR ---
ED Nurse Note: Patient was BIBA from [facility] due to low O2 level, and ALOC more that usual. Patient presented unconscious, with flat affect, Temp 91.5 rectal, O2 sat 76% on 10 L via non-rebreather mask. Patient's BP upon arrival was 62/38. AAO x0, VS unstable, skin is moist, cold to touch.
--- NOTE | 2019-04-20 19:20 | NUR ---
ED Nurse Note: Patient has big pfeassure ulcer on his sacral area.
--- NOTE | 2019-04-20 19:28 | NUR ---
ED Nurse Note: Patient noticed heart rate decreasing, HR at 21 CPR was initiated at 1928, ER MD at bed side. 1930 first Epi was given, 1932 second Epi was given. After 2 rounds of EPI puls was noticed, CPR was stoped.
[2019-04-20 19:30] LABS: HEMOGLOBIN 8.2 G/DL (14.2-18.0); MEAN CORPUSCULAR VOLUME 85 FL (80-99); PLATELET COUNT 299 K/UL (150-450); RED BLOOD COUNT 2.94 M/UL (4.70-6.10); RED CELL DISTRIBUTION WIDTH 14.6 % (11.6-14.8)
[2019-04-20 19:35] LABS: WHITE BLOOD COUNT 31.1 K/UL (4.8-10.8)
--- NOTE | 2019-04-20 19:37 | NUR ---
ED Nurse Note: Patient was intubated at 1937, by Dr. Stoll. ET tube 7.5, lip line 25 cm, VS: HR 71, BP 140/113. Patient's mechanical ventilation settings are: F-14, Vt-500,PEEP0.0, O2 100%.
--- NOTE | 2019-04-20 19:43 | NUR ---
ED Nurse Note: Atropine iwas given. Patient noticed desating, HR is 43.
--- NOTE | 2019-04-20 19:45 | NUR ---
ED Nurse Note: Patient noticed heart rate decreasing, HR at 28 CPR was initiated at 1944, Dr. Stoll at bed side. 1945 first Epi was given, 1947 second EPI was given. After 2 rounds of EPI puls was noticed, CPR was stoped. Patient's HR is 80, BP is 85/25.
[2019-04-20 19:53] LABS: ANION GAP 14 mmol/L (5-15); BLOOD UREA NITROGEN 47 mg/dL (7-18); CALCIUM 9.5 MG/DL (8.5-10.1); CARBON DIOXIDE 22 MMOL/L (21-32); CHLORIDE 101 MMOL/L (98-107); CREATININE 1.9 MG/DL (0.55-1.30); POTASSIUM 4.7 MMOL/L (3.5-5.1); SODIUM 137 MMOL/L (136-145)
[2019-04-20] MEDS ORDERED: Levophed 4mg/4mL Inj IV ONE ×2 (19:55→19:58)
[2019-04-20] MEDS ORDERED: Atropine Inj 1mg/10ml Syr IVP ONE (20:00)
--- NOTE | 2019-04-20 20:05 | NUR ---
ED Nurse Note: Levophed was overrided from pyxes, started at 2004 at rate 10 mcg/min (37.5mL/hr), per Dr. Stoll. Patient's BP is 54/32.
[2019-04-20 20:08] LABS: ALANINE AMINOTRANSFERASE 19 U/L (12-78); ALBUMIN 1.2 G/DL (3.4-5.0); ALBUMIN/GLOBULIN RATIO 0.2 (1.0-2.7); ALKALINE PHOSPHATASE 103 U/L (46-116); ASPARTATE AMINO TRANSFERASE 62 U/L (15-37); BILIRUBIN,TOTAL 0.6 MG/DL (0.2-1.0); CKMB 27.4 NG/ML (0.0-3.6); CREATINE KINASE 477 U/L (26-308)
[2019-04-20 21:10] VITALS: BP 67/35
[2019-04-20] MEDS ORDERED: DOPamine 400mg/250ml 250 ML IV SCH ×2 (21:15→23:00)
[2019-04-20 22:30] VITALS: BP 97/65
--- NOTE | 2019-04-20 22:30 | NUR ---
ED Nurse Note: Patient was admited to ICU due to ALOC. After second CODE patient was transfered to the unit with VS: HR 98, RR 33, 2 sat 100% on Vent, BP 97/67. Patient was transfered via gurney by ACLS protocol, with all belongings. Dopamine 12mcg/min still running.
[2019-04-20 22:43] VITALS: BP 62/29
--- NOTE | 2019-04-20 22:43 | NUR ---
NURSE NOTES: Admitted 89 year old male. Endorsement received from CELINE Horne. Patient intubated ETT 7.5, 25 lipline. AC 14, 500,100%. Left upper arm PICC, ongoing Dopamine 20mcg/kg/min. Brought up in ICU per pedro luis from ER, asystole upon arrival. Code blue initiated. See code blue sheet. Family at the bedside. Addendum: 04/21/19 at 0018 by MILAN BELL RN NURSE NOTES: patient is 89 year old male Addendum: 04/21/19 at 0054 by MILAN BELL RN NURSE NOTES: Received patient on Dopamine 13mcg/kg.min, increased to 20mcg/kg/min
--- NOTE | 2019-04-20 22:55 | NUR ---
NURSE NOTES: JESUS Beavers at bedside. Spoke to the patient's family regarding patient's current status.
--- NOTE | 2019-04-20 22:55 | NUR ---
NURSE NOTES: Daughter Valentine wished to make Father DNR at this time. POL signed.
[2019-04-20] MEDS ORDERED: Norepinephrine Bitartrate 16 MG in D5W 500ml 484 ML IV SCH (23:00)
--- NOTE | 2019-04-20 23:02 | NUR ---
NURSE NOTES: Called and left message for MD Mims at time time. patient spoke with ER MD and wish DNR. Admission orders also needed. Awaiting call back
--- NOTE | 2019-04-20 23:18 | NUR ---
NURSE NOTES: patient HR 41 at this time. Pulses are diminished. Family at the bedside.
--- NOTE | 2019-04-20 23:30 | NUR ---
NURSE NOTES: Called MD Mims exchange. Was able to speak with him. Order is to continue all orders from ER and DNR order acknowledged
--- NOTE | 2019-04-20 23:43 | NUR ---
NURSE NOTES: ER MD Dr. Beavers pronounced patient's .
--- NOTE | 2019-04-20 23:43 | NUR ---
NURSE NOTES: patient noted to be asystole on the monitor. Called and notified ER MD and supervisor mails at this time. ER MD will be up when available.
[2019-04-20] MEDS ORDERED: NS 275ml ONE (23:44)
--- NOTE | 2019-04-21 00:26 | NUR ---
NURSE NOTES: Called seed potato cutter's office, spoke with Gadiel. As per her patient is not a seed potato cutter's case. potato chip frier called [facility], spoke with Marian. Patient is not a candidate for organ donation.
--- NOTE | 2019-04-21 00:45 | NUR ---
NURSE NOTES: Post mortem care done. Patient has no belongins. Patient's family at the bedside afterwards. Privacy provided.
--- NOTE | 2019-04-21 01:00 | NUR ---
NURSE NOTES: Called Dr. Snowden's emergency exchange, left a message regarding patient's status.
--- NOTE | 2019-04-21 02:41 | NUR ---
ED Nurse Note: Levophed started at 2004- 10mcg/min (37.5mL /hr) 2009- was increased 15 mcg/min ( 56.25 mL/hr) 2014-was increased 20 mcg/min ( 75 mL/hr) 2019- was increased 25 mcg/min ( 93.75 mL/hr) 2024- was increased 30mcg/min ( 112.5 mL /hr) BP is 97/67 2230 - was DC, patient was transfered to the unit. Pt's BP still 98/67.
--- NOTE | 2019-04-21 09:31 | Discharge Summary ---
Discharge Summary Discharge Summary _ SUMMARY DATE OF ADMISSION: 04/20 DATE OF EXPIRATION : 04/20/2019 REASON FOR ADMISSION: 89 years old male with past medical history of hypertension, coronary artery disease, CVA, dementia, seizure disorder, GI bleeding, hypothyroidism, pulmonary emboli, was [facility] the [facility] due to altered mental status. Patient had a prior admission to ICU, when he was intubated. Patient was unable to provide any history. Upon evaluation vital signs revealed severe hypotension with blood pressure 61/38, bradycardia, hypothermia and hypoxia. Patient required 100% nonrebreathing mask. Shortly after arrival, patient sustained a cardiac arrest with pulseless electrical activity. ACLS protocol initiated. Multiple rounds of CPR and ACLS interventions were attempted. Patient was intubated and had return of spontaneous circulation. Later he had another arrest due to pulseless electrical activity and again underwent multiple rounds of CPR and ACLS interventions as per protocol. He had return of spontaneous circulation . Patient started on aggressive IV hydration and broad-spectrum antibiotics. Patient pancultured. Patient started on Dopamine drip for profound hypotension. Patient started on warming machine for hypothermia and admitted to ICU. Work-up on admission revealed significant leukocytosis WBC 31.1, hemoglobin 8.2 , hematocrit 25. BUN 47 creatinine 1.9. Lactic acid 8.2, repeated 7.6. Albumin 1.2. Patient admitted to ICU. HOSPITAL COURSE: Patient admitted to ICU on dopamine drip. Patient had another asystole upon arrival to the ICU. CODE BLUE initiated as per ACLS protocol. Family was at the bedside at all times. CODE STATUS changed to DNR/DNI . Patient had another asystole and subsequently pronounced on 04/20 at 23:43. Cause of : cardiopulmonary arrest FINAL DIAGNOSES: Septic shock Status post multiple cardiopulmonary arrests Acute respiratory failure , requiring intubation Hypothermia Leukocytosis Hypothyroidism I have been assigned to dictate discharge summary for this account. I was not involved in the patient's management. Olimpia Warner NP Apr 21, 2019 09:30
--- NOTE | 2019-04-21 11:48 | Diagnostic Imaging Report ---
Indication: Shortness of breath Technique: One view of the chest Comparison: 04/10/2019 Findings: There is marked worsening of previously demonstrated parenchymal disease, now with extensive interstitial and airspace disease diffusely bilaterally, worst in the right lung. There are overlying defibrillator paddles. The left hemidiaphragm is obscured. The heart size is normal. There is an endotracheal tube in good position. Impression: Satisfactory endotracheal intubation Extensive bilateral diffuse interstitial and airspace infiltrates versus edema, right greater than left Obscured left hemidiaphragm, pleural effusion possible
--- NOTE | 2019-04-22 13:10 | Cardiology Report ---
APPROVED REPORT EKG Measurement Heart [id number] Sinus rhythm with 1st degree AV block Right bundle branch block Abnormal ECG
== END 2019-04-20 23:45 | disposition expired | DRG 871 ==
LOC: EDBD 18:45 → EMR 19:59 → ICU 20:24 → EDBEDREQ 20:37
PROC: 5A1935Z Respiratory Ventilation, Less than 24 Consecutive Hours (ICD-10-PCS; principal; 2019-04-20)
PROC: 5A12012 Performance of Cardiac Output, Single, Manual (ICD-10-PCS; principal; 2019-04-20)
PROC: 0BH17EZ Insertion of Endotracheal Airway into Trachea, Via Natural or Artificial Opening (ICD-10-PCS; principal; 2019-04-20)
DX: A41.9 Sepsis, unspecified organism (principal); R65.21 Severe sepsis with septic shock; J96.01 Acute respiratory failure with hypoxia; I46.9 Cardiac arrest, cause unspecified; Z66 Do not resuscitate; R68.0 Hypothermia, not associated with low environmental temperature; E03.9 Hypothyroidism, unspecified; I10 Essential (primary) hypertension; I25.10 Atherosclerotic heart disease of native coronary artery without angina pectoris; Z86.73 Personal history of transient ischemic attack (TIA), and cerebral infarction without residual deficits; F03.90 Unspecified dementia, unspecified severity, without behavioral disturbance, psychotic disturbance, mood disturbance, and anxiety; G40.909 Epilepsy, unspecified, not intractable, without status epilepticus; Z86.711 Personal history of pulmonary embolism
CPT/HCPCS: 31500; 36415; 71045; 80053; 82550; 82553; 83605; 84439; 84443; 84481; 84484; 85007; 85025; 87040; 87081; 93005; 94002; 94664; 96365; 96375; 99291